=== PATIENT | female | born 1985 | race American Indian/Alaskan Native ===

== ENCOUNTER 2017-03-05 05:22 | Observation (INO) | payer OTHER ==
[2017-03-05 05:40] VITALS: RESP 20
[2017-03-05] MEDS ORDERED: Sodium Chloride 0.9% 1,000 ML IV ONE ×2 (05:46→07:26)
--- NOTE | 2017-03-05 05:49 | C.PDOC ---
History Of Present Illness 31 year old female presents to ED complaining of sore throat, malaise, vomiting and diarrhea since yesterday. She reports she lost her voice and feels pain with swallowing. This morning she reports feeling weak and lightheaded. Denies any chest pain cough, abdominal pain or fever. Time Seen by Provider: 03/05/17 05:42 Chief Complaint (Nursing): GI Problem History Per: Patient History/Exam Limitations: no limitations Onset/Duration Of Symptoms: Days Current Symptoms Are (Timing): Still Present Recent travel outside of the [place]: No Past Medical History Reviewed: Historical Data, Nursing Documentation, Vital Signs Vital Signs: Last Vital Signs Temp 97.9 F 03/05/17 05:33 Pulse 123 H 03/05/17 05:33 Resp 20 03/05/17 05:33 BP 146/95 H 03/05/17 05:33 Pulse Ox 100 03/05/17 06:51 - Medical History PMH: Gastritis, HTN (noncompliant with meds) Surgical History: No Surg Hx Family History: States: Unknown Family Hx - Social History Hx Tobacco Use: No Hx Alcohol Use: No Hx Substance Use: No - Immunization History Hx Tetanus Toxoid Vaccination: Yes Hx Influenza Vaccination: Yes Hx Pneumococcal Vaccination: No Review Of Systems Constitutional: Positive for: Malaise. Negative for: Fever ENT: Positive for: Throat Pain. Negative for: Ear Pain, Nose Congestion Cardiovascular: Negative for: Chest Pain Respiratory: Negative for: Cough Gastrointestinal: Positive for: Vomiting, Diarrhea. Negative for: Abdominal Pain, Constipation Genitourinary: Negative for: Dysuria Skin: Negative for: Rash Neurological: Negative for: Weakness, Numbness, Headache, Dizziness Physical Exam - Physical Exam Appears: Non-toxic, Other (Soft voice) Skin: Normal Color, Warm, Dry Head: Atraumatic, Normacephalic Eye(s): bilateral: Normal Inspection, EOMI Ear(s): Bilateral: Normal Nose: Normal Oral Mucosa: Moist Throat: Erythema (Mild), No Exudate, No Drooling, No Mass Neck: Normal, Supple Chest: Symmetrical Cardiovascular: Rhythm Regular Respiratory: Normal Breath Sounds, No Rales, No Rhonchi, No Wheezing Gastrointestinal/Abdominal: Soft, No Tenderness Extremity: Bilateral: Atraumatic, Normal Color And Temperature, Normal ROM Neurological/Psych: Oriented x3, Normal Speech, Other (No focal deficits) Gait: Steady ED Course And Treatment - Laboratory Results Result Diagrams: 03/05/17 06:00 03/05/17 06:00 Lab Interpretation: No Acute Changes O2 Sat by Pulse Oximetry: 100 Pulse Ox Interpretation: Normal Medical Decision Making Medical Decision Making: Impression: sore throat, vomiting, diarrhea Plan: * Labs * UA * IV NS Progress: Labs reviewed by me, low potassium and dehydration. Patient received 1L IV bolus of NS and ordered KCL PO. Patient is still feeling nauseous. Reglan IV ordered. Patient signed out to NARCISO Parnell pending urine, re-eval and dispo Disposition Counseled Patient/Family Regarding: Studies Performed, Diagnosis, Need For Followup, Rx Given - Disposition Referrals: Ramírez Guevara MD [Staff Provider] - Disposition Time: 07:00 Condition: STABLE Additional Instructions: Drink fluids to prevent dehydration. Take Zofran as prescribed for nausea and vomiting. Try low-fat diet with increase in fluids such as sport drink, or gelatin. Rest your voice. Follow up with your doctor for further care and evaluation. Return to hospital for any worsening symptoms including fever, persistent vomiting, abdominal pain or other concern Prescriptions: Ondansetron ODT [Zofran ODT] 1 odt PO BID PRN #6 odt PRN Reason: Nausea/Vomiting - POA Present On Arrival: None - Clinical Impression Clinical Impression: Laryngitis, Viral syndrome - PA / BI LEAD / Resident Statement MD/DO has reviewed & agrees with the documentation as recorded. - Scribe Statement The provider has reviewed the documentation as recorded by the Scribe German Stevens All medical record entries made by the Dulceibtyler were at my direction and personally dictated by me. I have reviewed the chart and agree that the record accurately reflects my personal performance of the history, physical exam, medical decision making, and the department course for this patient. I have also personally directed, reviewed, and agree with the discharge instructions and disposition.
[2017-03-05] MEDS ORDERED: Sodium Chloride 0.9% 1,000 ML ONE ×2 (05:54→07:36)
[2017-03-05 06:03] LABS: HEMATOCRIT 41.4 % (34.0-47.0); MEAN CELL VOLUME 97.8 fL (81.0-99.0); MEAN CORPUSCULAR HEMOGLOBIN 33.7 pg (27.0-31.0); MEAN CORPUSCULAR HGB CONC 34.4 g/dL (33.0-37.0); MEAN PLATELET VOLUME 8.2 fL (7.2-11.7); RED CELL DISTRIBUTION WIDTH 12.9 % (11.5-14.5); WHITE BLOOD COUNT 6.9 K/uL (4.8-10.8)
[2017-03-05 06:13] LABS: CHLORIDE 96 mmol/L (98-107)
[2017-03-05 06:14] LABS: POTASSIUM 3.4 mmol/L (3.6-5.2); SODIUM 140 mmol/L (132-148)
[2017-03-05 06:16] LABS: ALB/GLOB RATIO 1.2 (1.0-2.1); ALKALINE PHOSPHATASE 79 U/L (38-126); AST/SGOT 258 U/L (14-36); BILIRUBIN,TOTAL 1.7 mg/dL (0.2-1.3); CARBON DIOXIDE 16 mmol/L (22-30); GFR AFRICAN-AMERICAN > 60; TOTAL PROTEIN 8.6 g/dL (6.3-8.3)
[2017-03-05 06:17] LABS: ALT/SGPT 116 U/L (9-52); BLOOD UREA NITROGEN 5 mg/dL (7-17); CALCIUM 9.2 mg/dl (8.6-10.4); GLUCOSE,RANDOM 88 mg/dL (65-105)
[2017-03-05] MEDS ORDERED: Potassium Chloride 20 mEq ER Tab PO STA (06:23)
[2017-03-05] MEDS ORDERED: Potassium Chloride 20 mEq ER Tab PO ONE (06:27)
[2017-03-05 07:16] LABS: RBC URINE 1 /hpf (0-3); URINE BACTERIA RARE (<OCC); URINE BILIRUBIN NEGATIVE (NEGATIVE); URINE BLOOD NEGATIVE (NEGATIVE); URINE COLOR Yellow (YELLOW); URINE GLUCOSE (UA) NORMAL (Normal); URINE KETONE 2+ mg/dL (NEGATIVE); URINE LEUKOCYTE ESTERASE NEG Leu/uL (Negative); URINE PROTEIN 1+ mg/dL (NEGATIVE); URINE UROBILINOGEN NORMAL mg/dL (0.2-1.0); WBC URINE 6 /hpf (0-5)
[2017-03-05 07:56] LABS: AMYLASE 93 U/L (30-110)
--- NOTE | 2017-03-05 09:22 | US ---
Right upper quadrant abdominal ultrasound History: Right upper quadrant abdominal pain. Comparison: None available. Technique: Real-time sonography was performed through the right upper quadrant of the abdomen. Findings: Liver: Enlarged measuring 20.6 centimeters in length. Diffuse increased echogenicity suggestive for fatty infiltration versus hepatic parenchymal disease. Clinical correlation. Gallbladder appears preserved. Normal wall thickness of 2.3 millimeters. Negative sonographic Solomon's sign. Common bile duct measures 5.3 millimeters, within normal limits. Pancreas not well visualized. Visualized aorta and IVC are preserved. Right kidney: 11.3 x 4.7 x 4.8 centimeters. No calculi or hydronephrosis. Impression: Enlarged liver measuring up to 20.6 centimeters in length with diffuse increased echogenicity suggestive for fatty infiltration versus hepatic parenchymal disease. Clinical correlation. Pancreas not well visualized.
[2017-03-05 09:54] LABS: VENOUS BLOOD GAS BASE EXCESS -2.8 mmol/L (0.0-2.0); VENOUS BLOOD GAS PCO2 32 mmHg (40-60); VENOUS BLOOD PH 7.42 (7.32-7.43)
[2017-03-05 10:04] LABS: CHLORIDE 102 mmol/L (98-107); POTASSIUM 3.6 mmol/L (3.6-5.2); SODIUM 140 mmol/L (132-148)
[2017-03-05 10:07] LABS: BLOOD UREA NITROGEN 4 mg/dL (7-17); CARBON DIOXIDE 17 mmol/L (22-30); GFR AFRICAN-AMERICAN > 60; GLUCOSE,RANDOM 89 mg/dL (65-105)
[2017-03-05 10:08] LABS: CALCIUM 7.7 mg/dl (8.6-10.4)
[2017-03-05 10:23] VITALS: BP 133/95; PULSE 128; TEMP 98.5; O2SAT 100
== END 2017-03-05 10:41 | disposition home or self-care (01) ==
LOC: C.ER 05:22 → C.9OBSV 07:00
PROVIDERS: ADMIT Emergency Medicine; ATTEND Emergency Medicine
DX: J04.0 Acute laryngitis (principal); B34.9 Viral infection, unspecified; I10 Essential (primary) hypertension; Z91.14 Patient's other noncompliance with medication regimen; R10.11 Right upper quadrant pain
CPT/HCPCS: 76705; 80048; 80053; 81001; 82150; 82803; 83690; 84703; 85027; 96361; 96374; 96375; 99285; G0378; J1885; J2405; J2765; J7040

== ENCOUNTER 2017-03-13 10:13 | Inpatient (IN) | payer OTHER ==
[2017-03-13] MEDS ORDERED: Sodium Chloride 0.9% 1,000 ML IV ONE ×3 (10:36→11:37)
[2017-03-13 10:51] LABS: BASO % 0.3 % (0.0-2.0); HEMATOCRIT 49.6 % (34.0-47.0); LYMPH # 0.9 K/uL (1.0-4.3); LYMPH % 13.4 % (20.0-40.0); MEAN CELL VOLUME 99.2 fL (81.0-99.0); MEAN CORPUSCULAR HGB CONC 34.3 g/dL (33.0-37.0); MEAN PLATELET VOLUME 8.9 fL (7.2-11.7); MONO # 0.5 K/uL (0.0-0.8); NRBC % 0.2 % (0.0-2.0); RED CELL DISTRIBUTION WIDTH 13.7 % (11.5-14.5); WHITE BLOOD COUNT 6.9 K/uL (4.8-10.8)
[2017-03-13 11:11] LABS: CHLORIDE 94 mmol/L (98-107); POTASSIUM 5.9 mmol/L (3.6-5.2); SODIUM 136 mmol/L (132-148)
[2017-03-13 11:13] LABS: ALB/GLOB RATIO 1.2 (1.0-2.1); ALKALINE PHOSPHATASE 127 U/L (38-126); BILIRUBIN,TOTAL 2.5 mg/dL (0.2-1.3); CARBON DIOXIDE 12 mmol/L (22-30); GFR AFRICAN-AMERICAN > 60; TOTAL PROTEIN 8.6 g/dL (6.3-8.3)
[2017-03-13 11:14] LABS: ALT/SGPT 287 U/L (9-52); BLOOD UREA NITROGEN 10 mg/dL (7-17); CALCIUM 9.1 mg/dl (8.6-10.4); GLUCOSE,RANDOM 128 mg/dL (65-105)
[2017-03-13 11:24] LABS: VENOUS BLOOD GAS BASE EXCESS -6.2 mmol/L (0.0-2.0); VENOUS BLOOD GAS PCO2 36 mmHg (40-60); VENOUS BLOOD PH 7.33 (7.32-7.43)
--- NOTE | 2017-03-13 11:27 | C.PDOC ---
History Of Present Illness 31 y/o female presents to ED with complaints of continuous abdominal pain and vomiting. Patient was seen at ED "few days ago" for same symptoms and given antibiotics. Patient states she had a strep throat and abdominal ultrasound. Patient denies fever, chills, diarrhea or any other complaints at this time. Time Seen by Provider: 03/13/17 10:22 Chief Complaint (Nursing): GI Problem History Per: Patient History/Exam Limitations: no limitations Onset/Duration Of Symptoms: Days Current Symptoms Are (Timing): Still Present Location Of Pain/Discomfort: RUQ, Epigastric, LUQ Quality Of Discomfort: Aching Recent travel outside of the [place]: No Abnormal Vaginal Bleeding: No Past Medical History Reviewed: Historical Data, Nursing Documentation, Vital Signs Vital Signs: Last Vital Signs Temp 98.4 F 03/13/17 13:30 Pulse 129 H 03/13/17 14:00 Resp 29 H 03/13/17 14:00 BP 126/80 03/13/17 13:30 Pulse Ox 97 03/13/17 14:00 - Medical History PMH: Gastritis, HTN (noncompliant with meds) Surgical History: No Surg Hx Family History: States: No Known Family Hx - Social History Hx Tobacco Use: No Hx Alcohol Use: No Hx Substance Use: No - Immunization History Hx Tetanus Toxoid Vaccination: Yes Hx Influenza Vaccination: Yes Hx Pneumococcal Vaccination: No Review Of Systems Constitutional: Negative for: Fever, Chills Gastrointestinal: Positive for: Vomiting, Abdominal Pain. Negative for: Nausea , Diarrhea Genitourinary: Negative for: Dysuria Musculoskeletal: Negative for: Back Pain Physical Exam - Physical Exam Appears: Non-toxic, Other (Actively vomiting) Skin: Normal Color, Warm, Dry Head: Normacephalic Oral Mucosa: Moist Neck: Normal ROM, Supple Chest: Symmetrical Cardiovascular: Rhythm Regular, Other (Sinus tachcyardic) Respiratory: Normal Breath Sounds, No Rales, No Rhonchi, No Wheezing Gastrointestinal/Abdominal: Soft, Tenderness (diffuse), No Guarding, No Rebound Back: No CVA Tenderness Neurological/Psych: Oriented x3 Gait: Unable To Assess ED Course And Treatment - Laboratory Results Result Diagrams: 03/13/17 10:44 03/13/17 10:44 Lab Interpretation: Abnormal Interpretation Of Abnormal: lipase > 6000 Urine POC: Negative ECG: Interpreted By Me, Viewed By Me ECG Rhythm: Sinus Tachycardia Rate From EC (bpm) O2 Sat by Pulse Oximetry: 98 (RA) Pulse Ox Interpretation: Normal Progress Note: Patient treated with NSS x 3 liters. Case discussed with ICU attending and agrees with ICU admission. Treated with morphine 4 mg IV Reassessment Condition: Improved - Physician Consult Information Physician Contacted: Nina Coates Outcome Of Conversation: admit to ICU Critical Care Time - Critical Care Note Total Time (in mins): 35 Documented critical care: time excludes all time spent performing seperately billable procedures. Medical Decision Making Medical Decision Making: Plan: Non-contrast CT scan abdomen Case discussed and patient evaluated by ICU attending and agrees to admit Case discussed and patient evaluated by Dr Coates Disposition Discussed With Dr.: Nina Coates Doctor Will See Patient In The: Hospital - Disposition Disposition: HOSPITALIZED Disposition Time: 13:00 Condition: STABLE - POA Present On Arrival: None - Clinical Impression Clinical Impression: Vomiting, Pancreatitis - PA / DINKEY OPERATOR SLATE / Resident Statement MD/DO has reviewed & agrees with the documentation as recorded. - Scribe Statement The provider has reviewed the documentation as recorded by the Russell Garvey All medical record entries made by the Dulceibtyler were at my direction and personally dictated by me. I have reviewed the chart and agree that the record accurately reflects my personal performance of the history, physical exam, medical decision making, and the department course for this patient. I have also personally directed, reviewed, and agree with the discharge instructions and disposition. Decision To Admit - Pt Status Changed To: Hospital Disposition Of: Inpatient - Admit Certification Admit to Inpatient:: After my assessment, the patient will require hospitalization for at least two midnights. This is because of the severity of symptoms shown, intensity of services needed, and/or the medical risk in this patient being treated as an outpatient. - InPatient: Physician Admission Certification:: Acute Pancreatitis - . Bed Request Type: ICU Admitting Physician: Nina Coates Patient Diagnosis: Vomiting, Pancreatitis
[2017-03-13 11:28] LABS: AST/SGOT 1051 U/L (14-36)
[2017-03-13] MEDS ORDERED: Morphine 4 MG/ML VIAL ONE (11:44)
[2017-03-13 12:08] LABS: ALCOHOL SERUM 209 mg/dl (0-10)
[2017-03-13] MEDS ORDERED: Lactated Ringer's 1,000 ML IV SCH (12:30)
[2017-03-13 12:41] LABS: ABG ALLEN TEST POS; DRAW SITE RRA
--- NOTE | 2017-03-13 13:43 | CT ---
CT chest, abdomen, and pelvis without IV contrast Indication: Pain Technique: Contiguous axial images of the chest, abdomen, and pelvis without oral or IV contrast. Coronal and Sagittal reformats generated and reviewed. This CT exam was performed using 1 or more of the falling dose reduction techniques: Automated exposure control, adjustment of the MAA and/or kV according to patient size, and/or use of iterative reconstruction technique. Radiation dose: Total exam DLP = 755.80 MGy-cm. Comparison: Limited abdominal ultrasound performed 03/05/17 and 03/16/15 Findings: Visualized portions of the inferior thyroid gland appear unremarkable. The mediastinal and hilar vascular structures appear within normal limits. The heart appears within normal limits of size. There is no focal consolidation, significant pleural effusion, or definite pneumothorax evident. No suspicious pulmonary nodules measuring greater than 5 mm. Hepatomegaly. Severe diffuse hypoattenuation of the liver compatible with hepatic steatosis. 2.0 x 4.2 cm more focal hypodensity within the inferior right hepatic lobe near the portal confluence, possibly more focal fatty infiltration. Extensive peripancreatic inflammatory stranding and fluid which tracks inferiorly as well as pancreatic edema. Constellation of findings consistent with acute pancreatitis. Contrast within the gallbladder presumably due to vicarious excretion. The kidneys enhance symmetrically. No hydronephrosis or obstructing calculi evident. The adrenal glands appear unremarkable. Diminutive spleen appears otherwise unremarkable. The stomach is nondistended. Lack of oral contrast limits evaluation for bowel pathology. The bowel loops appear within normal limits of caliber without evidence of intestinal obstruction. There is no definite free air. The appendix appears within normal limits of caliber. No secondary signs of acute appendicitis. Uterus is present. The urinary bladder appears unremarkable. Small to moderate pelvic free fluid. Visualized osseous structures appear unremarkable. Impression: Extensive peripancreatic inflammatory stranding and fluid which tracks inferiorly as well as pancreatic edema. Constellation of findings consistent with acute pancreatitis. Correlate clinically including amylase and lipase. Hepatomegaly. Severe diffuse hypoattenuation of the liver compatible with hepatic steatosis. 2.0 x 4.2 cm more focal hypodensity within the inferior right hepatic lobe near the portal confluence, possibly more focal fatty infiltration. Contrast within the gallbladder presumably due to vicarious excretion. Small to moderate pelvic free fluid.
--- NOTE | 2017-03-13 13:49 | CP.PCM.HP ---
<Dalton Thomas E - Last Filed: 03/13/17 18:03> History of Present Illness - History of Present Illness History of Present Illness: CC: Abdominal Pain HPI: Patient is a 31 year old female past medical history of hypertension who presents tot he ED with complaints of abdominal pain, vomiting and watery diarrhea that started 2-3 days ago. Patient describes her abdominal pain as a 7/ 10 continuos cramping pain that is localized to the upper abdomen with an epigastric origin. Patient reports that her abdominal pain radiates to the middle of her back. Patient reports that she had a lot of wine glasses and 3 shots of vodka at a [facility] 1-2 days ago and noted increased alcohol intake at the [facility]. Furthermore, patient admits to daily alcohol use of ( 2-3 beers, 3-5 shots and wine). Patient admits to associated symptoms of SOB, hot flashes, dizziness, 1-2 episodes of watery diarrhea daily for the past 2-3 days, decrease PO intake for 4 days, abdominal distentions, unusual bloating. Patient denies fever, chills, chest pain, hematemesis, hematochezia. Patient was recently in the ER (03/05/17) for symptoms of URI and abdominal pain. Patient had an abdominal US, which showed enlarged liver measuring up to 20.6cm in length with diffuse increased echogenicity suggestive for fatty infiltration. Patient was also discharge with Augmentin 875-125mg for URI symptoms. PMHx: HTN PSHx: Denies FHx: Denies Medication: HTN medication ( Patient does not recall) Allergies: NKDA Social Hx: Lives alone. Admits to daily consumption of alcohol (2-3 beers, 3-5 shots and wine), and denies former or current use of tobacco and illicit drugs Present on Admission - Present on Admission Any Indicators Present on Admission: No Review of Systems - Constitutional Constitutional: Weakness. absent: Chills, Fever, Headache - EENT Eyes: absent: Change in Vision Ears: Dizziness - Cardiovascular Cardiovascular: Diaphoresis, Dyspnea, Lightheadedness, Palpitations. absent: Chest Pain - Respiratory Respiratory: Dyspnea, Dyspnea on Exertion, Pain on Inspiration - Gastrointestinal Gastrointestinal: Abdominal Pain, Cramping, Diarrhea, Loose Stools, Nausea, Vomiting - Neurological Neurological: Dizziness, Weakness. absent: Headaches, Syncope, Tingling - Endocrine Endocrine: Fatigue, Palpitations Past Patient History - Infectious Disease Hx of Infectious Diseases: None - Past Social History Smoking Status: Never Smoked - CARDIAC Hx Hypertension: Yes (noncompliant with meds) - PULMONARY Hx Respiratory Disorders: No - NEUROLOGICAL Hx Neurological Disorder: No - HEENT Hx HEENT Problems: No - RENAL Hx Chronic Kidney Disease: No - ENDOCRINE/METABOLIC Hx Endocrine Disorders: No - HEMATOLOGICAL/ONCOLOGICAL Hx Blood Disorders: No - INTEGUMENTARY Hx Dermatological Problems: No - MUSCULOSKELETAL/RHEUMATOLOGICAL Hx Musculoskeletal Disorders: No - GASTROINTESTINAL Hx Gastritis: Yes - GENITOURINARY/GYNECOLOGICAL Hx Genitourinary Disorders: No - PSYCHIATRIC Hx Substance Use: No - SURGICAL HISTORY Hx Surgeries: No - ANESTHESIA Hx Anesthesia: No Meds Allergies/Adverse Reactions: Allergies Allergy/AdvReac Type Severity Reaction Status Date / Time No Known Allergies Allergy Verified 03/13/17 10:23 Physical Exam - Head Exam Head Exam: ATRAUMATIC, NORMAL INSPECTION - Eye Exam Eye Exam: EOMI - ENT Exam ENT Exam: Mucous Membranes Dry - Respiratory Exam Respiratory Exam: Clear to Auscultation Bilateral, NORMAL BREATHING PATTERN - Cardiovascular Exam Cardiovascular Exam: Tachycardia, REGULAR RHYTHM, +S1, +S2 - GI/Abdominal Exam GI & Abdominal Exam: Distended, Guarding, Normal Bowel Sounds, Tenderness - Extremities Exam Extremities exam: Positive for: normal inspection. Negative for: calf tenderness, pedal edema, tenderness - Back Exam Back exam: tenderness - Neurological Exam Neurological exam: Alert, Oriented x3 - Skin Skin Exam: Normal Color Results - Vital Signs Recent Vital Signs: Last Vital Signs Temp 97.8 F 03/13/17 12:53 Pulse 129 H 03/13/17 13:04 Resp 18 03/13/17 13:04 BP 120/80 03/13/17 13:04 Pulse Ox 98 03/13/17 13:33 - Labs Result Diagrams: 03/13/17 10:44 03/13/17 15:33 Labs: Laboratory Results - last 24 hr 03/13/17 03/13/17 03/13/17 10:25 10:44 10:44 WBC 6.9 RBC 5.00 Hgb 17.0 H D Hct 49.6 H MCV 99.2 H MCH 34.0 H MCHC 34.3 RDW 13.7 Plt Count 224 MPV 8.9 Neut % (Auto) 78.3 H Lymph % (Auto) 13.4 L [place] % (Auto) 8.0 Eos % (Auto) 0.0 Baso % (Auto) 0.3 Neut # 5.4 Lymph # 0.9 L [place] # 0.5 Eos # 0.0 Baso # 0.0 Puncture Site pCO2 pO2 HCO3 ABG pH ABG Total CO2 ABG O2 Saturation ABG Base Excess [place] Test ABG Potassium VBG pH VBG pCO2 VBG HCO3 VBG Total CO2 VBG O2 Sat (Calc) VBG Base Excess VBG Potassium A-a O2 Difference Respiratory Index Glucose Lactate FiO2 Crit Value Called To Crit Value Called By Crit Value Read Back Blood Gas Notified Time Sodium 136 Potassium 5.9 H Chloride 94 L Carbon Dioxide 12 L Anion Gap 36 H BUN 10 Creatinine 0.7 Est GFR ( Amer) > 60 Est GFR (Non-Af Amer) > 60 POC Glucose (mg/dL) 131 H Random Glucose 128 H Calcium 9.1 Total Bilirubin 2.5 H AST 1051 H ALT 287 H D Alkaline Phosphatase 127 H D Ammonia Lactate Dehydrogenase Total Protein 8.6 H Albumin 4.6 Globulin 4.0 H Albumin/Globulin Ratio 1.2 Lipase 6496 H Beta HCG, Quant Arterial Blood Potassium Venous Blood Potassium Alcohol, Quantitative 209 H 03/13/17 03/13/17 03/13/17 10:48 10:50 12:35 WBC RBC Hgb Hct MCV MCH MCHC RDW Plt Count MPV Neut % (Auto) Lymph % (Auto) [place] % (Auto) Eos % (Auto) Baso % (Auto) Neut # Lymph # [place] # Eos # Baso # Puncture Site Rra pCO2 25 L pO2 35 114 H HCO3 16.4 L ABG pH 7.33 L ABG Total CO2 14.0 L ABG O2 Saturation 99.2 H ABG Base Excess -10.9 L [place] Test Pos ABG Potassium 3.2 L VBG pH 7.33 VBG pCO2 36 L VBG HCO3 19.1 VBG Total CO2 20.1 L VBG O2 Sat (Calc) 60.1 VBG Base Excess -6.2 L VBG Potassium 3.2 L A-a O2 Difference 4.0 Respiratory Index 0 Glucose 146 H 112 H Lactate 9.5 H* 6.5 H* FiO2 21.0 Crit Value Called To Jd coates Crit Value Called By Melvin siddiqui [employer] Natelmo sanidad Crit Value Read Back Y Y Blood Gas Notified Time 1123 1240 Sodium 139.0 140.0 Potassium Chloride 99.0 109.0 H Carbon Dioxide Anion Gap BUN Creatinine Est GFR ( Amer) Est GFR (Non-Af Amer) POC Glucose (mg/dL) Random Glucose Calcium Total Bilirubin AST ALT Alkaline Phosphatase Ammonia Lactate Dehydrogenase 1749 H Total Protein Albumin Globulin Albumin/Globulin Ratio Lipase Beta HCG, Quant < 2.39 Arterial Blood Potassium 3.2 L Venous Blood Potassium 3.2 L Alcohol, Quantitative 03/13/17 12:38 WBC RBC Hgb Hct MCV MCH MCHC RDW Plt Count MPV Neut % (Auto) Lymph % (Auto) [place] % (Auto) Eos % (Auto) Baso % (Auto) Neut # Lymph # [place] # Eos # Baso # Puncture Site pCO2 pO2 HCO3 ABG pH ABG Total CO2 ABG O2 Saturation ABG Base Excess [place] Test ABG Potassium VBG pH VBG pCO2 VBG HCO3 VBG Total CO2 VBG O2 Sat (Calc) VBG Base Excess VBG Potassium A-a O2 Difference Respiratory Index Glucose Lactate FiO2 Crit Value Called To Crit Value Called By Crit Value Read Back Blood Gas Notified Time Sodium Potassium Chloride Carbon Dioxide Anion Gap BUN Creatinine Est GFR ( Amer) Est GFR (Non-Af Amer) POC Glucose (mg/dL) Random Glucose Calcium Total Bilirubin AST ALT Alkaline Phosphatase Ammonia < 9 L Lactate Dehydrogenase Total Protein Albumin Globulin Albumin/Globulin Ratio Lipase Beta HCG, Quant Arterial Blood Potassium Venous Blood Potassium Alcohol, Quantitative Assessment & Plan - Assessment and Plan (Free Text) Assessment: Patient is a 31 year old female past medical history of hypertension who presents tot he ED with complaints of abdominal pain, vomiting and watery diarrhea that started 2-3 days ago, with lactate level of 9.5, 6.5 and lipase of 6496. Patient was admitted to the ICU with consideration of acute pancreatitis and transaminitis. Plan: Neuro: Alert, awake and oriented Cardio: No acute issues Pulm: No acute issues GI: Acute Pancreatitis and transaminitis GI consult, Dr. Okeefe---> help appreciated Imaging: Abdominal US (03/05/17): Enlarged liver measuring up to 20.6cm in length with diffuse increased echogenicity suggestive for fatty infiltration Chest CT/Abdomen/Pelvis ( 03/13/17): Extensive peripancreatic inflammatory stranding and fluid which tracks inferiorly as well as pancreatic edema. Constellation of findings consistent with acute pancreatitis. Correlate clinically including amylase and lipase. * Hepatomegaly. Severe diffuse hypoattenuation of the liver compatible with hepatic steatosis. 2.0 x 4.2 cm more focal hypodensity within the inferior right hepatic lobe near the portal confluence, possibly more focal fatty infiltration. * Contrast within the gallbladder presumably due to vicarious excretion. * Small to moderate pelvic free fluid. Labs: Lactate: 9.5, 6.5 Lipase: 6496 AST/ALT: 1051/287 Lactate DH:[id number] T, LDL: 252, HDL: 88 Alcohol level: 209 Hepatitis panel: Negative F/u stool culture, ova and parasite, stool occult Medication/Management: * NPO * Dilaudid 1mg IV Q4H PRN for pain control * LR @ 250mls/hr Endo: Hypertriglyceridemia Endocrinology, Dr. Sung---> Help appreciated Medication/Management: * Insulin drip at 3mls/hr * Accuchecks Q1 Psych: Alcohol disorder * Educated on alcohol cessation * Alcohol withdrawal protocol ID: No acute issues Prophylaxis: DVT: SCDs GI: Pepcid 20mg IVP Q12H <Nina Coates V - Last Filed: 03/15/17 00:14> Results - Vital Signs Recent Vital Signs: Last Vital Signs Temp 98.4 F 03/13/17 13:30 Pulse 129 H 03/13/17 14:00 Resp 29 H 03/13/17 14:00 BP 126/80 03/13/17 13:30 Pulse Ox 97 03/13/17 14:00 - Labs Result Diagrams: 03/14/17 15:34 03/14/17 15:34 Labs: Laboratory Results - last 24 hr 03/13/17 03/13/17 03/13/17 10:25 10:44 10:44 WBC 6.9 RBC 5.00 Hgb 17.0 H D Hct 49.6 H MCV 99.2 H MCH 34.0 H MCHC 34.3 RDW 13.7 Plt Count 224 MPV 8.9 Neut % (Auto) 78.3 H Lymph % (Auto) 13.4 L [place] % (Auto) 8.0 Eos % (Auto) 0.0 Baso % (Auto) 0.3 Neut # 5.4 Lymph # 0.9 L [place] # 0.5 Eos # 0.0 Baso # 0.0 PT INR Puncture Site pCO2 pO2 HCO3 ABG pH ABG Total CO2 ABG O2 Saturation ABG Base Excess [place] Test ABG Potassium VBG pH VBG pCO2 VBG HCO3 VBG Total CO2 VBG O2 Sat (Calc) VBG Base Excess VBG Potassium A-a O2 Difference Respiratory Index Glucose Lactate FiO2 Crit Value Called To Crit Value Called By Crit Value Read Back Blood Gas Notified Time Sodium 136 Potassium 5.9 H Chloride 94 L Carbon Dioxide 12 L Anion Gap 36 H BUN 10 Creatinine 0.7 Est GFR ( Amer) > 60 Est GFR (Non-Af Amer) > 60 POC Glucose (mg/dL) 131 H Random Glucose 128 H Calcium 9.1 Total Bilirubin 2.5 H Direct Bilirubin AST 1051 H ALT 287 H D Alkaline Phosphatase 127 H D Ammonia Lactate Dehydrogenase Total Protein 8.6 H Albumin 4.6 Globulin 4.0 H Albumin/Globulin Ratio 1.2 Cholesterol LDL Cholesterol Direct HDL Cholesterol Lipase 6496 H Beta HCG, Quant Arterial Blood Potassium Venous Blood Potassium Acetaminophen Alcohol, Quantitative 209 H 03/13/17 03/13/17 03/13/17 10:48 10:50 12:35 WBC RBC Hgb Hct MCV MCH MCHC RDW Plt Count MPV Neut % (Auto) Lymph % (Auto) [place] % (Auto) Eos % (Auto) Baso % (Auto) Neut # Lymph # [place] # Eos # Baso # PT INR Puncture Site Rra pCO2 25 L pO2 35 114 H HCO3 16.4 L ABG pH 7.33 L ABG Total CO2 14.0 L ABG O2 Saturation 99.2 H ABG Base Excess -10.9 L [place] Test Pos ABG Potassium 3.2 L VBG pH 7.33 VBG pCO2 36 L VBG HCO3 19.1 VBG Total CO2 20.1 L VBG O2 Sat (Calc) 60.1 VBG Base Excess -6.2 L VBG Potassium 3.2 L A-a O2 Difference 4.0 Respiratory Index 0 Glucose 146 H 112 H Lactate 9.5 H* 6.5 H* FiO2 21.0 Crit Value Called To Jd coates Crit Value Called By Melvin siddiqui [employer] Antelmo sanidad Crit Value Read Back Y Y Blood Gas Notified Time 1123 1240 Sodium 139.0 140.0 Potassium Chloride 99.0 109.0 H Carbon Dioxide Anion Gap BUN Creatinine Est GFR ( Amer) Est GFR (Non-Af Amer) POC Glucose (mg/dL) Random Glucose Calcium Total Bilirubin Direct Bilirubin AST ALT Alkaline Phosphatase Ammonia Lactate Dehydrogenase 1749 H Total Protein Albumin Globulin Albumin/Globulin Ratio Cholesterol LDL Cholesterol Direct HDL Cholesterol Lipase Beta HCG, Quant < 2.39 Arterial Blood Potassium 3.2 L Venous Blood Potassium 3.2 L Acetaminophen Alcohol, Quantitative 03/13/17 03/13/17 03/13/17 12:38 14:06 14:06 WBC RBC Hgb Hct MCV MCH MCHC RDW Plt Count MPV Neut % (Auto) Lymph % (Auto) [place] % (Auto) Eos % (Auto) Baso % (Auto) Neut # Lymph # [place] # Eos # Baso # PT 12.7 H INR 1.1 Puncture Site pCO2 pO2 HCO3 ABG pH ABG Total CO2 ABG O2 Saturation ABG Base Excess [place] Test ABG Potassium VBG pH VBG pCO2 VBG HCO3 VBG Total CO2 VBG O2 Sat (Calc) VBG Base Excess VBG Potassium A-a O2 Difference Respiratory Index Glucose Lactate FiO2 Crit Value Called To Crit Value Called By Crit Value Read Back Blood Gas Notified Time Sodium Potassium Chloride Carbon Dioxide Anion Gap BUN Creatinine Est GFR ( Amer) Est GFR (Non-Af Amer) POC Glucose (mg/dL) Random Glucose Calcium Total Bilirubin Direct Bilirubin 1.1 H AST ALT Alkaline Phosphatase Ammonia < 9 L Lactate Dehydrogenase Total Protein Albumin Globulin Albumin/Globulin Ratio Cholesterol 252 H LDL Cholesterol Direct 96 HDL Cholesterol 88 H Lipase Beta HCG, Quant Arterial Blood Potassium Venous Blood Potassium Acetaminophen Alcohol, Quantitative 03/13/17 14:06 WBC RBC Hgb Hct MCV MCH MCHC RDW Plt Count MPV Neut % (Auto) Lymph % (Auto) [place] % (Auto) Eos % (Auto) Baso % (Auto) Neut # Lymph # [place] # Eos # Baso # PT INR Puncture Site pCO2 pO2 HCO3 ABG pH ABG Total CO2 ABG O2 Saturation ABG Base Excess [place] Test ABG Potassium VBG pH VBG pCO2 VBG HCO3 VBG Total CO2 VBG O2 Sat (Calc) VBG Base Excess VBG Potassium A-a O2 Difference Respiratory Index Glucose Lactate FiO2 Crit Value Called To Crit Value Called By Crit Value Read Back Blood Gas Notified Time Sodium Potassium Chloride Carbon Dioxide Anion Gap BUN Creatinine Est GFR ( Amer) Est GFR (Non-Af Amer) POC Glucose (mg/dL) Random Glucose Calcium Total Bilirubin Direct Bilirubin AST ALT Alkaline Phosphatase Ammonia Lactate Dehydrogenase Total Protein Albumin Globulin Albumin/Globulin Ratio Cholesterol LDL Cholesterol Direct HDL Cholesterol Lipase Beta HCG, Quant Arterial Blood Potassium Venous Blood Potassium Acetaminophen < 10.0 L Alcohol, Quantitative Attending/Attestation - Attestation I have personally seen and examined this patient.: Yes I have fully participated in the care of the patient.: Yes I have reviewed all pertinent clinical information: Yes Notes (Text): Patient seen, examined, and case discussed with ER-SENIOR TECHNICAL BUSINESS ANALYSTRiri. ICU evaluation, discussed with ICU and ICU resident, patient admitted to the ICU for pancreatitis. GI consult for acute pancreatitis Alphonso's criteria: 2 Per discussion with patient, Patient reports for the past 3 days, she has been having abdominal pain, diffuse, nonlocalized, non-billious vomitting and associated watery stool. Patient reports 3 days ago, she drank 1 large wine bottle and 3 shots of "white liquor" and patient reports she drank like this only 3 times but did not want to expand on further questioning. Patient reports she was being treated for URI about 4-5 days ago, took 2 pills antibiotic but cannot remember. Patient allows for us to share medication information with her boyfriend and her mother. Assessment/Plan 1) Acute Pancreatitis Transaminitis Lactic acidosis/ Metabolic Acidosis * Patient seen, examined and case discussed with ICU, accepted to ICU; management per ICU * NPO * Patient given 3 fluid boluses in the ED< patient started on LR 250cc/hr * Lactate: 9.5-->6.5 * Lipase: 6496; AST/ALT: 1051/287; Lactate DH:1749 * T, LDL: 252, HDL: 88 * Alphonso's Criteria: 2 (AST>250, LDH>350) * Elevated alcohol on admission * Hepatitis: negative * HIV ordered * Tylenol level: Low * Abdominal US (03/05/17): Enlarged liver measuring up to 20.6cm in length with diffuse increased echogenicity suggestive for fatty infiltration * Chest CT/Abdomen/Pelvis ( 03/13/17): Extensive peripancreatic inflammatory stranding and fluid which tracks inferiorly as well as pancreatic edema. Constellation of findings consistent with acute pancreatitis. Correlate clinically including amylase and lipase. Hepatomegaly. Severe diffuse hypoattenuation of the liver compatible with hepatic steatosis. 2.0 x 4.2 cm more focal hypodensity within the inferior right hepatic lobe near the portal confluence, possibly more focal fatty infiltration. Contrast within the gallbladder presumably due to vicarious excretion. Small to moderate pelvic free fluid. * UDS ordered 2) Hypertrigylceridemia * T, LDL: 252, HDL: 88 * Patient currently not on any medication as outptient * Endocrinology Dr. Sung-->help apppreciated * Patient started on Insulin drip and accuchecks Q1 3) Hypertension * off BP medications at this time * Given fluid boluses in the ED, started on LR 250cc/hr 4) Prior history of URI * CT Chest obtained 5) Prophylaxis: * DVT: SCDs * GI: Pepcid 20mg IVP Q12H
[2017-03-13 14:15] LABS: INR 1.1
[2017-03-13 14:27] LABS: BILIRUBIN,DIRECT 1.1 mg/dL (0.0-0.4)
[2017-03-13 15:17] LABS: IRON 201 ug/dL (37-170)
[2017-03-13] MEDS: Lactated Ringer's 1,000 ML IV SCH ×5 (16:01→22:20)
[2017-03-13 16:49] LABS: CHLORIDE 103 mmol/L (98-107); POTASSIUM 3.4 mmol/L (3.6-5.2); SODIUM 138 mmol/L (132-148)
[2017-03-13 16:52] LABS: GFR AFRICAN-AMERICAN > 60
[2017-03-13 16:53] LABS: BLOOD UREA NITROGEN 7 mg/dL (7-17); GLUCOSE,RANDOM 107 mg/dL (65-105)
[2017-03-13 16:57] LABS: IMMUNOGLOBULIN G 893.6 mg/dL (700.0-1600.0)
[2017-03-13 16:58] LABS: CARBON DIOXIDE 10 mmol/L (22-30); IMMUNOGLOBULIN A 202.2 mg/dL (70.0-400.0); IMMUNOGLOBULIN M 155.3 mg/dL (40.0-230.0)
--- NOTE | 2017-03-13 17:13 | CP.PCM.CON ---
<Krysten Munguia - Last Filed: 03/13/17 18:07> History of Present Illness - History of Present Illness History of Present Illness: Gastroenterology Fellow/PGY5 Consult Note 31 year old female with history of recent URI presenting with abdominal pain. Patient notes acute onset of epigastric pain radiating to back today after drink a large amount of alcohol yesterday at a [employer]. Admits to daily alcohol use of 2 beers and 5 shots mixed with wine daily. Notes increased intake during parties. Associates hot flashes, abdominal distension, bloating, heartburn, acid reflux, shortness of breath, nausea, over five episodes of bilious vomiting , and three episodes of diarrhea. Denies fever, chills, sweats, hematemesis, constipation, melena, hematochezia, confusion, extremity swelling, pruritis, or confusion. Recent ER visit for shortness of breath and sore throat with prescription for Augmentin provided for a URI. Denies similar symptoms in the past. No prior EGD or colonoscopy. Family- denies liver disease, colon cancer Social- 2 beers and 5 shots mixed with wine daily x 2 years, denies tobacco or illicit drug use Surgery- none Review of Systems - Review of Systems Review of Systems: 12-point review of systems negative except for as above Past Patient History - Infectious Disease Hx of Infectious Diseases: None - Past Social History Smoking Status: Never Smoked - CARDIAC Hx Hypertension: Yes (noncompliant with meds) - PULMONARY Hx Respiratory Disorders: No - NEUROLOGICAL Hx Neurological Disorder: No - HEENT Hx HEENT Problems: No - RENAL Hx Chronic Kidney Disease: No - ENDOCRINE/METABOLIC Hx Endocrine Disorders: No - HEMATOLOGICAL/ONCOLOGICAL Hx Blood Disorders: No - INTEGUMENTARY Hx Dermatological Problems: No - MUSCULOSKELETAL/RHEUMATOLOGICAL Hx Falls: No - GASTROINTESTINAL Hx Gastritis: Yes - GENITOURINARY/GYNECOLOGICAL Hx Genitourinary Disorders: No - PSYCHIATRIC Hx Substance Use: No - SURGICAL HISTORY Hx Surgeries: No - ANESTHESIA Hx Anesthesia: No Meds Allergies/Adverse Reactions: Allergies Allergy/AdvReac Type Severity Reaction Status Date / Time No Known Allergies Allergy Verified 03/13/17 10:23 - Medications Medications: Current Medications Famotidine (Pepcid) 20 mg IVP Q12 MONIKA Hydromorphone HCl (Dilaudid) 1 mg IVP Q4H PRN PRN Reason: Pain, severe (8-10) Last Admin: 03/13/17 14:57 Dose: 1 mg Lactated Ringer's (Lactated Ringer's) 1,000 mls @ 250 mls/hr IV .Q4H MONIKA Last Admin: 03/13/17 17:07 Dose: 250 mls/hr Potassium Chloride (Potassium Chloride 10 Meq/100 Ml) 10 meq in 100 mls @ 100 mls/hr IVPB ONCE ONE Stop: 03/13/17 18:01 Physical Exam - Constitutional Appears: Other - Head Exam Head Exam: ATRAUMATIC, NORMOCEPHALIC - Eye Exam Eye Exam: EOMI, PERRL. absent: Scleral icterus Pupil Exam: PERRL. absent: Miosis, Mydriatic - ENT Exam ENT Exam: Mucous Membranes Dry, Normal Exam - Neck Exam Neck exam: Positive for: Full Rom, Normal Inspection - Respiratory Exam Respiratory Exam: Clear to Auscultation Bilateral. absent: Rales, Rhonchi, Wheezes - Cardiovascular Exam Cardiovascular Exam: Tachycardia, +S1, +S2 - GI/Abdominal Exam GI & Abdominal Exam: Distended, Firm, Guarding, Hypoactive Bowel Sounds, Organomegaly, Tenderness Additional comments: diffuse tenderness to palpation - Extremities Exam Extremities exam: Positive for: normal inspection. Negative for: pedal edema - Neurological Exam Neurological exam: Altered Additional comments: alcohol intoxication - Psychiatric Exam Psychiatric exam: Normal Affect, Normal Mood - Skin Skin Exam: Dry, Intact, Normal Color, Warm Results - Vital Signs Recent Vital Signs: Last Vital Signs Temp 98.2 F 03/13/17 16:00 Pulse 126 H 03/13/17 16:10 Resp 18 03/13/17 16:10 BP 139/100 H 03/13/17 15:29 Pulse Ox 96 03/13/17 16:10 - Labs Result Diagrams: 03/13/17 10:44 03/13/17 15:33 Labs: Laboratory Results - last 24 hr 03/13/17 03/13/17 03/13/17 10:25 10:44 10:44 WBC 6.9 RBC 5.00 Hgb 17.0 H D Hct 49.6 H MCV 99.2 H MCH 34.0 H MCHC 34.3 RDW 13.7 Plt Count 224 MPV 8.9 Neut % (Auto) 78.3 H Lymph % (Auto) 13.4 L Miner % (Auto) 8.0 Eos % (Auto) 0.0 Baso % (Auto) 0.3 Neut # 5.4 Lymph # 0.9 L Miner # 0.5 Eos # 0.0 Baso # 0.0 PT INR Puncture Site pCO2 pO2 HCO3 ABG pH ABG Total CO2 ABG O2 Saturation ABG Base Excess [place] Test ABG Potassium VBG pH VBG pCO2 VBG HCO3 VBG Total CO2 VBG O2 Sat (Calc) VBG Base Excess VBG Potassium A-a O2 Difference Respiratory Index Glucose Lactate FiO2 Crit Value Called To Crit Value Called By Crit Value Read Back Blood Gas Notified Time Sodium 136 Potassium 5.9 H Chloride 94 L Carbon Dioxide 12 L Anion Gap 36 H BUN 10 Creatinine 0.7 Est GFR ( Amer) > 60 Est GFR (Non-Af Amer) > 60 POC Glucose (mg/dL) 131 H Random Glucose 128 H Calcium 9.1 Iron TIBC % Saturation Ferritin Total Bilirubin 2.5 H Direct Bilirubin AST 1051 H ALT 287 H D Alkaline Phosphatase 127 H D Ammonia Lactate Dehydrogenase Total Protein 8.6 H Albumin 4.6 Globulin 4.0 H Albumin/Globulin Ratio 1.2 Triglycerides Cholesterol LDL Cholesterol Direct HDL Cholesterol Lipase 6496 H Beta HCG, Quant Arterial Blood Potassium Venous Blood Potassium Urine Opiates Screen Urine Methadone Screen Acetaminophen Ur Barbiturates Screen Ur Phencyclidine Scrn Ur Amphetamines Screen U Benzodiazepines Scrn U Oth Cocaine Metabols U Cannabinoids Screen Alcohol, Quantitative 209 H IgG IgA IgM Hepatitis A IgM Ab Hep Bs Antigen Hep B Core IgM Ab Hepatitis C Antibody HIV 1&2 Antibody Screen 03/13/17 03/13/17 03/13/17 10:48 10:50 12:35 WBC RBC Hgb Hct MCV MCH MCHC RDW Plt Count MPV Neut % (Auto) Lymph % (Auto) Miner % (Auto) Eos % (Auto) Baso % (Auto) Neut # Lymph # Miner # Eos # Baso # PT INR Puncture Site Rra pCO2 25 L pO2 35 114 H HCO3 16.4 L ABG pH 7.33 L ABG Total CO2 14.0 L ABG O2 Saturation 99.2 H ABG Base Excess -10.9 L [place] Test Pos ABG Potassium 3.2 L VBG pH 7.33 VBG pCO2 36 L VBG HCO3 19.1 VBG Total CO2 20.1 L VBG O2 Sat (Calc) 60.1 VBG Base Excess -6.2 L VBG Potassium 3.2 L A-a O2 Difference 4.0 Respiratory Index 0 Glucose 146 H 112 H Lactate 9.5 H* 6.5 H* FiO2 21.0 Crit Value Called To Jd verde Crit Value Called By Melvin siddiqui inside sales engineer Antelmo sanidad Crit Value Read Back Y Y Blood Gas Notified Time 1123 1240 Sodium 139.0 140.0 Potassium Chloride 99.0 109.0 H Carbon Dioxide Anion Gap BUN Creatinine Est GFR ( Amer) Est GFR (Non-Af Amer) POC Glucose (mg/dL) Random Glucose Calcium Iron TIBC % Saturation Ferritin Total Bilirubin Direct Bilirubin AST ALT Alkaline Phosphatase Ammonia Lactate Dehydrogenase 1749 H Total Protein Albumin Globulin Albumin/Globulin Ratio Triglycerides Cholesterol LDL Cholesterol Direct HDL Cholesterol Lipase Beta HCG, Quant < 2.39 Arterial Blood Potassium 3.2 L Venous Blood Potassium 3.2 L Urine Opiates Screen Urine Methadone Screen Acetaminophen Ur Barbiturates Screen Ur Phencyclidine Scrn Ur Amphetamines Screen U Benzodiazepines Scrn U Oth Cocaine Metabols U Cannabinoids Screen Alcohol, Quantitative IgG IgA IgM Hepatitis A IgM Ab Hep Bs Antigen Hep B Core IgM Ab Hepatitis C Antibody HIV 1&2 Antibody Screen 03/13/17 03/13/17 03/13/17 12:38 14:06 14:06 WBC RBC Hgb Hct MCV MCH MCHC RDW Plt Count MPV Neut % (Auto) Lymph % (Auto) Miner % (Auto) Eos % (Auto) Baso % (Auto) Neut # Lymph # Miner # Eos # Baso # PT INR Puncture Site pCO2 pO2 HCO3 ABG pH ABG Total CO2 ABG O2 Saturation ABG Base Excess [place] Test ABG Potassium VBG pH VBG pCO2 VBG HCO3 VBG Total CO2 VBG O2 Sat (Calc) VBG Base Excess VBG Potassium A-a O2 Difference Respiratory Index Glucose Lactate FiO2 Crit Value Called To Crit Value Called By Crit Value Read Back Blood Gas Notified Time Sodium Potassium Chloride Carbon Dioxide Anion Gap BUN Creatinine Est GFR ( Amer) Est GFR (Non-Af Amer) POC Glucose (mg/dL) Random Glucose Calcium Iron TIBC % Saturation Ferritin 1940.0 Total Bilirubin Direct Bilirubin 1.1 H AST ALT Alkaline Phosphatase Ammonia < 9 L Lactate Dehydrogenase Total Protein Albumin Globulin Albumin/Globulin Ratio Triglycerides 1727 H Cholesterol 252 H LDL Cholesterol Direct 96 HDL Cholesterol 88 H Lipase Beta HCG, Quant Arterial Blood Potassium Venous Blood Potassium Urine Opiates Screen Urine Methadone Screen Acetaminophen Ur Barbiturates Screen Ur Phencyclidine Scrn Ur Amphetamines Screen U Benzodiazepines Scrn U Oth Cocaine Metabols U Cannabinoids Screen Alcohol, Quantitative IgG IgA IgM Hepatitis A IgM Ab Negative Hep Bs Antigen Negative Hep B Core IgM Ab Negative Hepatitis C Antibody Negative HIV 1&2 Antibody Screen 03/13/17 03/13/17 03/13/17 14:06 14:06 14:06 WBC RBC Hgb Hct MCV MCH MCHC RDW Plt Count MPV Neut % (Auto) Lymph % (Auto) Miner % (Auto) Eos % (Auto) Baso % (Auto) Neut # Lymph # Miner # Eos # Baso # PT 12.7 H INR 1.1 Puncture Site pCO2 pO2 HCO3 ABG pH ABG Total CO2 ABG O2 Saturation ABG Base Excess [place] Test ABG Potassium VBG pH VBG pCO2 VBG HCO3 VBG Total CO2 VBG O2 Sat (Calc) VBG Base Excess VBG Potassium A-a O2 Difference Respiratory Index Glucose Lactate FiO2 Crit Value Called To Crit Value Called By Crit Value Read Back Blood Gas Notified Time Sodium Potassium Chloride Carbon Dioxide Anion Gap BUN Creatinine Est GFR ( Amer) Est GFR (Non-Af Amer) POC Glucose (mg/dL) Random Glucose Calcium Iron TIBC % Saturation Ferritin Total Bilirubin Direct Bilirubin AST ALT Alkaline Phosphatase Ammonia Lactate Dehydrogenase Total Protein Albumin Globulin Albumin/Globulin Ratio Triglycerides Cholesterol LDL Cholesterol Direct HDL Cholesterol Lipase Beta HCG, Quant Arterial Blood Potassium Venous Blood Potassium Urine Opiates Screen Urine Methadone Screen Acetaminophen < 10.0 L Ur Barbiturates Screen Ur Phencyclidine Scrn Ur Amphetamines Screen U Benzodiazepines Scrn U Oth Cocaine Metabols U Cannabinoids Screen Alcohol, Quantitative IgG IgA IgM Hepatitis A IgM Ab Hep Bs Antigen Hep B Core IgM Ab Hepatitis C Antibody HIV 1&2 Antibody Screen Negative 03/13/17 03/13/17 03/13/17 14:07 15:33 15:33 WBC RBC Hgb Hct MCV MCH MCHC RDW Plt Count MPV Neut % (Auto) Lymph % (Auto) Miner % (Auto) Eos % (Auto) Baso % (Auto) Neut # Lymph # Miner # Eos # Baso # PT INR Puncture Site pCO2 pO2 HCO3 ABG pH ABG Total CO2 ABG O2 Saturation ABG Base Excess [place] Test ABG Potassium VBG pH VBG pCO2 VBG HCO3 VBG Total CO2 VBG O2 Sat (Calc) VBG Base Excess VBG Potassium A-a O2 Difference Respiratory Index Glucose Lactate FiO2 Crit Value Called To Crit Value Called By Crit Value Read Back Blood Gas Notified Time Sodium 138 Potassium 3.4 L Chloride 103 Carbon Dioxide 10 L* Anion Gap 28 H BUN 7 Creatinine 0.7 Est GFR ( Amer) > 60 Est GFR (Non-Af Amer) > 60 POC Glucose (mg/dL) Random Glucose 107 H Calcium 8.0 L Iron 201 H TIBC 194 L % Saturation 104 H Ferritin Total Bilirubin Direct Bilirubin AST ALT Alkaline Phosphatase Ammonia Lactate Dehydrogenase Total Protein Albumin Globulin Albumin/Globulin Ratio Triglycerides Cholesterol LDL Cholesterol Direct HDL Cholesterol Lipase Beta HCG, Quant Arterial Blood Potassium Venous Blood Potassium Urine Opiates Screen Urine Methadone Screen Acetaminophen Ur Barbiturates Screen Ur Phencyclidine Scrn Ur Amphetamines Screen U Benzodiazepines Scrn U Oth Cocaine Metabols U Cannabinoids Screen Alcohol, Quantitative IgG 893.6 IgA 202.2 IgM 155.3 Hepatitis A IgM Ab Hep Bs Antigen Hep B Core IgM Ab Hepatitis C Antibody HIV 1&2 Antibody Screen 03/13/17 16:29 WBC RBC Hgb Hct MCV MCH MCHC RDW Plt Count MPV Neut % (Auto) Lymph % (Auto) Miner % (Auto) Eos % (Auto) Baso % (Auto) Neut # Lymph # Miner # Eos # Baso # PT INR Puncture Site pCO2 pO2 HCO3 ABG pH ABG Total CO2 ABG O2 Saturation ABG Base Excess [place] Test ABG Potassium VBG pH VBG pCO2 VBG HCO3 VBG Total CO2 VBG O2 Sat (Calc) VBG Base Excess VBG Potassium A-a O2 Difference Respiratory Index Glucose Lactate FiO2 Crit Value Called To Crit Value Called By Crit Value Read Back Blood Gas Notified Time Sodium Potassium Chloride Carbon Dioxide Anion Gap BUN Creatinine Est GFR ( Amer) Est GFR (Non-Af Amer) POC Glucose (mg/dL) Random Glucose Calcium Iron TIBC % Saturation Ferritin Total Bilirubin Direct Bilirubin AST ALT Alkaline Phosphatase Ammonia Lactate Dehydrogenase Total Protein Albumin Globulin Albumin/Globulin Ratio Triglycerides Cholesterol LDL Cholesterol Direct HDL Cholesterol Lipase Beta HCG, Quant Arterial Blood Potassium Venous Blood Potassium Urine Opiates Screen Positive Urine Methadone Screen Negative Acetaminophen Ur Barbiturates Screen Negative Ur Phencyclidine Scrn Negative Ur Amphetamines Screen Negative U Benzodiazepines Scrn Negative U Oth Cocaine Metabols Negative U Cannabinoids Screen Negative Alcohol, Quantitative IgG IgA IgM Hepatitis A IgM Ab Hep Bs Antigen Hep B Core IgM Ab Hepatitis C Antibody HIV 1&2 Antibody Screen Assessment & Plan - Assessment and Plan (Free Text) Assessment: 31 year old female with history of recent URI presenting with abdominal pain. Active treatment of acute moderate pancreatitis and transaminitis. No prior EGD or colonoscopy. Plan: >multifactorial- alcohol, hypertriglyceridemia >aggressive IVFs- 200-250cc/hr >NPO, pain control >repeat labs at 1900 to assess for clinical improvement >if unchanged, repeat fluid bolus -20cc/kg >recommend endocrine consult >recommend insulin therapy, Gemfibrozil >pending APAP, UDS >negative Hepatitis panel >pending autoimmune workup in setting of acute on chronic LFTs (2014) >pending Abdominal U/S >recent U/S 03/05- no gallstones, normal CBD, hepatomegaly, steatosis >CT A/P -pancreatitis, free fluid in pelvis >alcohol withdrawal protocol >counselled on alcohol cessation >close monitoring of clinical status for signs of decompensation >will follow <Favian Okeefe - Last Filed: 03/13/17 18:21> Meds - Medications Medications: Current Medications Famotidine (Pepcid) 20 mg IVP Q12 MONIKA Hydromorphone HCl (Dilaudid) 1 mg IVP Q4H PRN PRN Reason: Pain, severe (8-10) Last Admin: 03/13/17 14:57 Dose: 1 mg Lactated Ringer's (Lactated Ringer's) 1,000 mls @ 250 mls/hr IV .Q4H MONIKA Last Admin: 03/13/17 17:07 Dose: 250 mls/hr Insulin Human Regular 100 unit (/ Sodium Chloride) 100 mls @ 3 mls/hr IV .Q24H MONIKA Results - Vital Signs Recent Vital Signs: Last Vital Signs Temp 98.2 F 03/13/17 16:00 Pulse 124 H 03/13/17 17:20 Resp 21 03/13/17 17:20 BP 141/101 H 03/13/17 16:28 Pulse Ox 99 03/13/17 17:20 - Labs Result Diagrams: 03/13/17 10:44 03/13/17 15:33 Labs: Laboratory Results - last 24 hr 03/13/17 03/13/17 03/13/17 10:25 10:44 10:44 WBC 6.9 RBC 5.00 Hgb 17.0 H D Hct 49.6 H MCV 99.2 H MCH 34.0 H MCHC 34.3 RDW 13.7 Plt Count 224 MPV 8.9 Neut % (Auto) 78.3 H Lymph % (Auto) 13.4 L Miner % (Auto) 8.0 Eos % (Auto) 0.0 Baso % (Auto) 0.3 Neut # 5.4 Lymph # 0.9 L Miner # 0.5 Eos # 0.0 Baso # 0.0 PT INR Puncture Site pCO2 pO2 HCO3 ABG pH ABG Total CO2 ABG O2 Saturation ABG Base Excess [place] Test ABG Potassium VBG pH VBG pCO2 VBG HCO3 VBG Total CO2 VBG O2 Sat (Calc) VBG Base Excess VBG Potassium A-a O2 Difference Respiratory Index Glucose Lactate FiO2 Crit Value Called To Crit Value Called By Crit Value Read Back Blood Gas Notified Time Sodium 136 Potassium 5.9 H Chloride 94 L Carbon Dioxide 12 L Anion Gap 36 H BUN 10 Creatinine 0.7 Est GFR ( Amer) > 60 Est GFR (Non-Af Amer) > 60 POC Glucose (mg/dL) 131 H Random Glucose 128 H Calcium 9.1 Iron TIBC % Saturation Ferritin Total Bilirubin 2.5 H Direct Bilirubin AST 1051 H ALT 287 H D Alkaline Phosphatase 127 H D Ammonia Lactate Dehydrogenase Total Protein 8.6 H Albumin 4.6 Globulin 4.0 H Albumin/Globulin Ratio 1.2 Triglycerides Cholesterol LDL Cholesterol Direct HDL Cholesterol Lipase 6496 H Beta HCG, Quant Arterial Blood Potassium Venous Blood Potassium Urine Color Urine Clarity Urine pH Ur Specific [place] Urine Protein Urine Glucose (UA) Urine Ketones Urine Blood Urine Nitrate Urine Bilirubin Urine Urobilinogen Ur Leukocyte Esterase Urine WBC (Auto) Urine RBC (Auto) Ur Squamous Epith Cells Urine Bacteria Urine Opiates Screen Urine Methadone Screen Acetaminophen Ur Barbiturates Screen Ur Phencyclidine Scrn Ur Amphetamines Screen U Benzodiazepines Scrn U Oth Cocaine Metabols U Cannabinoids Screen Alcohol, Quantitative 209 H IgG IgA IgM Hepatitis A IgM Ab Hep Bs Antigen Hep B Core IgM Ab Hepatitis C Antibody HIV 1&2 Antibody Screen Ur L.pneumophila Ag 03/13/17 03/13/17 03/13/17 10:48 10:50 12:35 WBC RBC Hgb Hct MCV MCH MCHC RDW Plt Count MPV Neut % (Auto) Lymph % (Auto) Miner % (Auto) Eos % (Auto) Baso % (Auto) Neut # Lymph # Miner # Eos # Baso # PT INR Puncture Site Rra pCO2 25 L pO2 35 114 H HCO3 16.4 L ABG pH 7.33 L ABG Total CO2 14.0 L ABG O2 Saturation 99.2 H ABG Base Excess -10.9 L [place] Test Pos ABG Potassium 3.2 L VBG pH 7.33 VBG pCO2 36 L VBG HCO3 19.1 VBG Total CO2 20.1 L VBG O2 Sat (Calc) 60.1 VBG Base Excess -6.2 L VBG Potassium 3.2 L A-a O2 Difference 4.0 Respiratory Index 0 Glucose 146 H 112 H Lactate 9.5 H* 6.5 H* FiO2 21.0 Crit Value Called To Jd verde Crit Value Called By Melvin siddiqui inside sales engineer Antelmo [facility] Crit Value Read Back Y Y Blood Gas Notified Time 1123 1240 Sodium 139.0 140.0 Potassium Chloride 99.0 109.0 H Carbon Dioxide Anion Gap BUN Creatinine Est GFR ( Amer) Est GFR (Non-Af Amer) POC Glucose (mg/dL) Random Glucose Calcium Iron TIBC % Saturation Ferritin Total Bilirubin Direct Bilirubin AST ALT Alkaline Phosphatase Ammonia Lactate Dehydrogenase 1749 H Total Protein Albumin Globulin Albumin/Globulin Ratio Triglycerides Cholesterol LDL Cholesterol Direct HDL Cholesterol Lipase Beta HCG, Quant < 2.39 Arterial Blood Potassium 3.2 L Venous Blood Potassium 3.2 L Urine Color Urine Clarity Urine pH Ur Specific [place] Urine Protein Urine Glucose (UA) Urine Ketones Urine Blood Urine Nitrate Urine Bilirubin Urine Urobilinogen Ur Leukocyte Esterase Urine WBC (Auto) Urine RBC (Auto) Ur Squamous Epith Cells Urine Bacteria Urine Opiates Screen Urine Methadone Screen Acetaminophen Ur Barbiturates Screen Ur Phencyclidine Scrn Ur Amphetamines Screen U Benzodiazepines Scrn U Oth Cocaine Metabols U Cannabinoids Screen Alcohol, Quantitative IgG IgA IgM Hepatitis A IgM Ab Hep Bs Antigen Hep B Core IgM Ab Hepatitis C Antibody HIV 1&2 Antibody Screen Ur L.pneumophila Ag 03/13/17 03/13/17 03/13/17 12:38 14:06 14:06 WBC RBC Hgb Hct MCV MCH MCHC RDW Plt Count MPV Neut % (Auto) Lymph % (Auto) Miner % (Auto) Eos % (Auto) Baso % (Auto) Neut # Lymph # Miner # Eos # Baso # PT INR Puncture Site pCO2 pO2 HCO3 ABG pH ABG Total CO2 ABG O2 Saturation ABG Base Excess [place] Test ABG Potassium VBG pH VBG pCO2 VBG HCO3 VBG Total CO2 VBG O2 Sat (Calc) VBG Base Excess VBG Potassium A-a O2 Difference Respiratory Index Glucose Lactate FiO2 Crit Value Called To Crit Value Called By Crit Value Read Back Blood Gas Notified Time Sodium Potassium Chloride Carbon Dioxide Anion Gap BUN Creatinine Est GFR ( Amer) Est GFR (Non-Af Amer) POC Glucose (mg/dL) Random Glucose Calcium Iron TIBC % Saturation Ferritin 1940.0 Total Bilirubin Direct Bilirubin 1.1 H AST ALT Alkaline Phosphatase Ammonia < 9 L Lactate Dehydrogenase Total Protein Albumin Globulin Albumin/Globulin Ratio Triglycerides 1727 H Cholesterol 252 H LDL Cholesterol Direct 96 HDL Cholesterol 88 H Lipase Beta HCG, Quant Arterial Blood Potassium Venous Blood Potassium Urine Color Urine Clarity Urine pH Ur Specific [place] Urine Protein Urine Glucose (UA) Urine Ketones Urine Blood Urine Nitrate Urine Bilirubin Urine Urobilinogen Ur Leukocyte Esterase Urine WBC (Auto) Urine RBC (Auto) Ur Squamous Epith Cells Urine Bacteria Urine Opiates Screen Urine Methadone Screen Acetaminophen Ur Barbiturates Screen Ur Phencyclidine Scrn Ur Amphetamines Screen U Benzodiazepines Scrn U Oth Cocaine Metabols U Cannabinoids Screen Alcohol, Quantitative IgG IgA IgM Hepatitis A IgM Ab Negative Hep Bs Antigen Negative Hep B Core IgM Ab Negative Hepatitis C Antibody Negative HIV 1&2 Antibody Screen Ur L.pneumophila Ag 03/13/17 03/13/17 03/13/17 14:06 14:06 14:06 WBC RBC Hgb Hct MCV MCH MCHC RDW Plt Count MPV Neut % (Auto) Lymph % (Auto) Miner % (Auto) Eos % (Auto) Baso % (Auto) Neut # Lymph # Miner # Eos # Baso # PT 12.7 H INR 1.1 Puncture Site pCO2 pO2 HCO3 ABG pH ABG Total CO2 ABG O2 Saturation ABG Base Excess [place] Test ABG Potassium VBG pH VBG pCO2 VBG HCO3 VBG Total CO2 VBG O2 Sat (Calc) VBG Base Excess VBG Potassium A-a O2 Difference Respiratory Index Glucose Lactate FiO2 Crit Value Called To Crit Value Called By Crit Value Read Back Blood Gas Notified Time Sodium Potassium Chloride Carbon Dioxide Anion Gap BUN Creatinine Est GFR ( Amer) Est GFR (Non-Af Amer) POC Glucose (mg/dL) Random Glucose Calcium Iron TIBC % Saturation Ferritin Total Bilirubin Direct Bilirubin AST ALT Alkaline Phosphatase Ammonia Lactate Dehydrogenase Total Protein Albumin Globulin Albumin/Globulin Ratio Triglycerides Cholesterol LDL Cholesterol Direct HDL Cholesterol Lipase Beta HCG, Quant Arterial Blood Potassium Venous Blood Potassium Urine Color Urine Clarity Urine pH Ur Specific [place] Urine Protein Urine Glucose (UA) Urine Ketones Urine Blood Urine Nitrate Urine Bilirubin Urine Urobilinogen Ur Leukocyte Esterase Urine WBC (Auto) Urine RBC (Auto) Ur Squamous Epith Cells Urine Bacteria Urine Opiates Screen Urine Methadone Screen Acetaminophen < 10.0 L Ur Barbiturates Screen Ur Phencyclidine Scrn Ur Amphetamines Screen U Benzodiazepines Scrn U Oth Cocaine Metabols U Cannabinoids Screen Alcohol, Quantitative IgG IgA IgM Hepatitis A IgM Ab Hep Bs Antigen Hep B Core IgM Ab Hepatitis C Antibody HIV 1&2 Antibody Screen Negative Ur L.pneumophila Ag 03/13/17 03/13/17 03/13/17 14:07 15:33 15:33 WBC RBC Hgb Hct MCV MCH MCHC RDW Plt Count MPV Neut % (Auto) Lymph % (Auto) Miner % (Auto) Eos % (Auto) Baso % (Auto) Neut # Lymph # Miner # Eos # Baso # PT INR Puncture Site pCO2 pO2 HCO3 ABG pH ABG Total CO2 ABG O2 Saturation ABG Base Excess [place] Test ABG Potassium VBG pH VBG pCO2 VBG HCO3 VBG Total CO2 VBG O2 Sat (Calc) VBG Base Excess VBG Potassium A-a O2 Difference Respiratory Index Glucose Lactate FiO2 Crit Value Called To Crit Value Called By Crit Value Read Back Blood Gas Notified Time Sodium 138 Potassium 3.4 L Chloride 103 Carbon Dioxide 10 L* Anion Gap 28 H BUN 7 Creatinine 0.7 Est GFR ( Amer) > 60 Est GFR (Non-Af Amer) > 60 POC Glucose (mg/dL) Random Glucose 107 H Calcium 8.0 L Iron 201 H TIBC 194 L % Saturation 104 H Ferritin Total Bilirubin Direct Bilirubin AST ALT Alkaline Phosphatase Ammonia Lactate Dehydrogenase Total Protein Albumin Globulin Albumin/Globulin Ratio Triglycerides Cholesterol LDL Cholesterol Direct HDL Cholesterol Lipase Beta HCG, Quant Arterial Blood Potassium Venous Blood Potassium Urine Color Urine Clarity Urine pH Ur Specific [place] Urine Protein Urine Glucose (UA) Urine Ketones Urine Blood Urine Nitrate Urine Bilirubin Urine Urobilinogen Ur Leukocyte Esterase Urine WBC (Auto) Urine RBC (Auto) Ur Squamous Epith Cells Urine Bacteria Urine Opiates Screen Urine Methadone Screen Acetaminophen Ur Barbiturates Screen Ur Phencyclidine Scrn Ur Amphetamines Screen U Benzodiazepines Scrn U Oth Cocaine Metabols U Cannabinoids Screen Alcohol, Quantitative IgG 893.6 IgA 202.2 IgM 155.3 Hepatitis A IgM Ab Hep Bs Antigen Hep B Core IgM Ab Hepatitis C Antibody HIV 1&2 Antibody Screen Ur L.pneumophila Ag 03/13/17 03/13/17 03/13/17 16:29 16:29 17:43 WBC RBC Hgb Hct MCV MCH MCHC RDW Plt Count MPV Neut % (Auto) Lymph % (Auto) Miner % (Auto) Eos % (Auto) Baso % (Auto) Neut # Lymph # Miner # Eos # Baso # PT INR Puncture Site pCO2 pO2 HCO3 ABG pH ABG Total CO2 ABG O2 Saturation ABG Base Excess [place] Test ABG Potassium VBG pH VBG pCO2 VBG HCO3 VBG Total CO2 VBG O2 Sat (Calc) VBG Base Excess VBG Potassium A-a O2 Difference Respiratory Index Glucose Lactate FiO2 Crit Value Called To Crit Value Called By Crit Value Read Back Blood Gas Notified Time Sodium Potassium Chloride Carbon Dioxide Anion Gap BUN Creatinine Est GFR ( Amer) Est GFR (Non-Af Amer) POC Glucose (mg/dL) Random Glucose Calcium Iron TIBC % Saturation Ferritin Total Bilirubin Direct Bilirubin AST ALT Alkaline Phosphatase Ammonia Lactate Dehydrogenase Total Protein Albumin Globulin Albumin/Globulin Ratio Triglycerides Cholesterol LDL Cholesterol Direct HDL Cholesterol Lipase Beta HCG, Quant Arterial Blood Potassium Venous Blood Potassium Urine Color Urine Clarity Urine pH Ur Specific [place] Urine Protein Urine Glucose (UA) Urine Ketones Urine Blood Urine Nitrate Urine Bilirubin Urine Urobilinogen Ur Leukocyte Esterase Urine WBC (Auto) Urine RBC (Auto) Ur Squamous Epith Cells Urine Bacteria Urine Opiates Screen Positive Positive Urine Methadone Screen Negative Negative Acetaminophen Ur Barbiturates Screen Negative Negative Ur Phencyclidine Scrn Negative Negative Ur Amphetamines Screen Negative Negative U Benzodiazepines Scrn Negative Negative U Oth Cocaine Metabols Negative Negative U Cannabinoids Screen Negative Negative Alcohol, Quantitative IgG IgA IgM Hepatitis A IgM Ab Hep Bs Antigen Hep B Core IgM Ab Hepatitis C Antibody HIV 1&2 Antibody Screen Ur L.pneumophila Ag Negative 03/13/17 03/13/17 17:46 18:10 WBC RBC Hgb Hct MCV MCH MCHC RDW Plt Count MPV Neut % (Auto) Lymph % (Auto) Miner % (Auto) Eos % (Auto) Baso % (Auto) Neut # Lymph # Miner # Eos # Baso # PT INR Puncture Site pCO2 pO2 HCO3 ABG pH ABG Total CO2 ABG O2 Saturation ABG Base Excess [place] Test ABG Potassium VBG pH VBG pCO2 VBG HCO3 VBG Total CO2 VBG O2 Sat (Calc) VBG Base Excess VBG Potassium A-a O2 Difference Respiratory Index Glucose Lactate FiO2 Crit Value Called To Crit Value Called By Crit Value Read Back Blood Gas Notified Time Sodium Potassium Chloride Carbon Dioxide Anion Gap BUN Creatinine Est GFR ( Amer) Est GFR (Non-Af Amer) POC Glucose (mg/dL) 131 H Random Glucose Calcium Iron TIBC % Saturation Ferritin Total Bilirubin Direct Bilirubin AST ALT Alkaline Phosphatase Ammonia Lactate Dehydrogenase Total Protein Albumin Globulin Albumin/Globulin Ratio Triglycerides Cholesterol LDL Cholesterol Direct HDL Cholesterol Lipase Beta HCG, Quant Arterial Blood Potassium Venous Blood Potassium Urine Color Yellow Urine Clarity Hazy Urine pH 6.0 Ur Specific [place] 1.027 Urine Protein Negative Urine Glucose (UA) Normal Urine Ketones 1+ H Urine Blood 2+ H Urine Nitrate Negative Urine Bilirubin Negative Urine Urobilinogen 2.0 H Ur Leukocyte Esterase Neg Urine WBC (Auto) 2 Urine RBC (Auto) 16 H Ur Squamous Epith Cells 11 H Urine Bacteria Few H Urine Opiates Screen Urine Methadone Screen Acetaminophen Ur Barbiturates Screen Ur Phencyclidine Scrn Ur Amphetamines Screen U Benzodiazepines Scrn U Oth Cocaine Metabols U Cannabinoids Screen Alcohol, Quantitative IgG IgA IgM Hepatitis A IgM Ab Hep Bs Antigen Hep B Core IgM Ab Hepatitis C Antibody HIV 1&2 Antibody Screen Ur L.pneumophila Ag Attending/Attestation - Attestation I have personally seen and examined this patient.: Yes I have fully participated in the care of the patient.: Yes I have reviewed all pertinent clinical information: Yes Notes (Text): 03/13/17 18:15 I have seen and examined patient with GI fellow. Agree with above documentation with the following additions. In brief, this is a 31 year old female with history of ETOH abuse who presents to hospital with complaint of sudden onset severe abdominal pain. She describes a 10/10 generalized discomfort radiating to back that is associated with increased bloating, nausea , and two episodes of non-bloody emesis. She admits to ongoing ETOH consumption , most recently the night prior to symptom onset where she consumed beer, wine, and hard liquor shots. She was recently seen in hospital ER for complaint of dyspnea and given medication for suspected URI. She denies fever/chills, weight loss, rectal bleeding, or change in bowel habits. No prior endoscopic evaluation. ETOH abuse Sudden onset severe abdominal pain - acute pancreatitis Hypertriglyceridemia CT imaging reviewed by me showing pancreatic edema with moe-pancreatic fluid consistent with acute pancreatitis - NPO - Aggressive IVF hydration over first 24 hours, pain control - Anti-emetic therapy PRN - Suggest endocrine consultation given hypertriglyceridemia with acute severe pancreatitis - Begin gemfibrozil therapy and consider insulin therapy for acute presentation - Obtain viral hepatitis and autoimmune panels, continue to monitor LFTs - Repeat abdominal US, though recent imaging did not show presence of cholelithiasis - Will continue to monitor patient clinical course
[2017-03-13 17:21] LABS: LEGIONELLA AG URINE NEGATIVE (NEGATIVE)
[2017-03-13 17:57] LABS: RBC URINE 16 /hpf (0-3); URINE BACTERIA FEW (<OCC); URINE BILIRUBIN NEGATIVE (NEGATIVE); URINE BLOOD 2+ (NEGATIVE); URINE COLOR Yellow (YELLOW); URINE GLUCOSE (UA) NORMAL (Normal); URINE KETONE 1+ mg/dL (NEGATIVE); URINE LEUKOCYTE ESTERASE NEG Leu/uL (Negative); URINE PROTEIN NEGATIVE (NEGATIVE); WBC URINE 2 /hpf (0-5)
[2017-03-13] MEDS ORDERED: Sodium Bicarbonate (8.4%) 50 Meq Syringe IVP ONE (18:00)
[2017-03-13] MEDS ORDERED: Insulin Human Regular 100 UNIT in Sodium Chloride 0.9% 99 ML IV SCH (18:00)
--- NOTE | 2017-03-13 18:29 | CP.PCM.CON ---
<Dalton Thomas E - Last Filed: 03/13/17 18:26> History of Present Illness - History of Present Illness History of Present Illness: CC: Abdominal Pain HPI: Patient is a 31 year old female past medical history of hypertension who presents tot he ED with complaints of abdominal pain, vomiting and watery diarrhea that started 2-3 days ago. Patient describes her abdominal pain as a 7/ 10 continuos cramping pain that is localized to the upper abdomen with an epigastric origin. Patient reports that her abdominal pain radiates to the middle of her back. Patient reports that she had a lot of wine glasses and 3 shots of vodka at a [facility] 1-2 days ago and noted increased alcohol intake at the republic[facility]. Furthermore, patient admits to daily alcohol use of ( 2-3 beers, 3-5 shots and wine). Patient admits to associated symptoms of SOB, hot flashes, dizziness, 1-2 episodes of watery diarrhea daily for the past 2-3 days, decrease PO intake for 4 days, abdominal distentions, unusual bloating. Patient denies fever, chills, chest pain, hematemesis, hematochezia. Patient was recently in the ER (03/05/17) for symptoms of URI and abdominal pain. Patient had an abdominal US, which showed enlarged liver measuring up to 20.6cm in length with diffuse increased echogenicity suggestive for fatty infiltration. Patient was also discharge with Augmentin 875-125mg for URI symptoms. PMHx: HTN PSHx: Denies FHx: Denies Medication: HTN medication ( Patient does not recall) Allergies: NKDA Social Hx: Lives alone. Admits to daily consumption of alcohol (2-3 beers, 3-5 shots and wine), and denies former or current use of tobacco and illicit remi Review of Systems - Constitutional Constitutional: Excessive Sweating, Fatigue, Weakness. absent: Chills, Fever, Headache, Increased Appetite - EENT Eyes: absent: Blurred Vision, Change in Vision Ears: Dizziness - Cardiovascular Cardiovascular: Diaphoresis, Dyspnea, Lightheadedness, Palpitations. absent: Chest Pain - Respiratory Respiratory: Dyspnea, Dyspnea on Exertion, Pain on Inspiration - Gastrointestinal Gastrointestinal: Abdominal Pain, Cramping, Nausea, Vomiting - Musculoskeletal Musculoskeletal: Numbness, Tingling - Neurological Neurological: Dizziness, Weakness. absent: Headaches, Paresthesias, Syncope, Tingling - Endocrine Endocrine: Fatigue, Palpitations Past Patient History - Infectious Disease Hx of Infectious Diseases: None - Past Social History Smoking Status: Never Smoked - CARDIAC Hx Hypertension: Yes (noncompliant with meds) - PULMONARY Hx Respiratory Disorders: No - NEUROLOGICAL Hx Neurological Disorder: No - HEENT Hx HEENT Problems: No - RENAL Hx Chronic Kidney Disease: No - ENDOCRINE/METABOLIC Hx Endocrine Disorders: No - HEMATOLOGICAL/ONCOLOGICAL Hx Blood Disorders: No - INTEGUMENTARY Hx Dermatological Problems: No - MUSCULOSKELETAL/RHEUMATOLOGICAL Hx Musculoskeletal Disorders: No - GASTROINTESTINAL Hx Gastritis: Yes - GENITOURINARY/GYNECOLOGICAL Hx Genitourinary Disorders: No - PSYCHIATRIC Hx Substance Use: No - SURGICAL HISTORY Hx Surgeries: No - ANESTHESIA Hx Anesthesia: No Meds Allergies/Adverse Reactions: Allergies Allergy/AdvReac Type Severity Reaction Status Date / Time No Known Allergies Allergy Verified 03/13/17 10:23 - Medications Medications: Current Medications Famotidine (Pepcid) 20 mg IVP Q12 MONIKA Hydromorphone HCl (Dilaudid) 1 mg IVP Q4H PRN PRN Reason: Pain, severe (8-10) Last Admin: 03/13/17 14:57 Dose: 1 mg Lactated Ringer's (Lactated Ringer's) 1,000 mls @ 250 mls/hr IV .Q4H MONIKA Last Admin: 03/13/17 17:07 Dose: 250 mls/hr Insulin Human Regular 100 unit (/ Sodium Chloride) 100 mls @ 3 mls/hr IV .Q24H [facility] Physical Exam - Head Exam Head Exam: ATRAUMATIC, NORMAL INSPECTION - Eye Exam Eye Exam: EOMI - ENT Exam ENT Exam: Mucous Membranes Dry - Respiratory Exam Respiratory Exam: Clear to Auscultation Bilateral, NORMAL BREATHING PATTERN - Cardiovascular Exam Cardiovascular Exam: Tachycardia, REGULAR RHYTHM, +S1, +S2 - GI/Abdominal Exam GI & Abdominal Exam: Distended, Guarding, Normal Bowel Sounds, Tenderness - Extremities Exam Extremities exam: Positive for: normal inspection. Negative for: calf tenderness, pedal edema, tenderness - Neurological Exam Neurological exam: Alert, Oriented x3 - Psychiatric Exam Psychiatric exam: Normal Affect, Normal Mood - Skin Skin Exam: Normal Color Results - Vital Signs Recent Vital Signs: Last Vital Signs Temp 98.2 F 03/13/17 16:00 Pulse 129 H 03/13/17 18:20 Resp 22 03/13/17 18:20 BP 140/108 H 03/13/17 17:29 Pulse Ox 97 03/13/17 18:20 - Labs Result Diagrams: 03/13/17 10:44 03/13/17 15:33 Labs: Laboratory Results - last 24 hr 03/13/17 03/13/17 03/13/17 10:25 10:44 10:44 WBC 6.9 RBC 5.00 Hgb 17.0 H D Hct 49.6 H MCV 99.2 H MCH 34.0 H MCHC 34.3 RDW 13.7 Plt Count 224 MPV 8.9 Neut % (Auto) 78.3 H Lymph % (Auto) 13.4 L Bland % (Auto) 8.0 Eos % (Auto) 0.0 Baso % (Auto) 0.3 Neut # 5.4 Lymph # 0.9 L Bland # 0.5 Eos # 0.0 Baso # 0.0 PT INR Puncture Site pCO2 pO2 HCO3 ABG pH ABG Total CO2 ABG O2 Saturation ABG Base Excess Carroll Test ABG Potassium VBG pH VBG pCO2 VBG HCO3 VBG Total CO2 VBG O2 Sat (Calc) VBG Base Excess VBG Potassium A-a O2 Difference Respiratory Index Glucose Lactate FiO2 Crit Value Called To Crit Value Called By Crit Value Read Back Blood Gas Notified Time Sodium 136 Potassium 5.9 H Chloride 94 L Carbon Dioxide 12 L Anion Gap 36 H BUN 10 Creatinine 0.7 Est GFR ( Amer) > 60 Est GFR (Non-Af Amer) > 60 POC Glucose (mg/dL) 131 H Random Glucose 128 H Calcium 9.1 Iron TIBC % Saturation Ferritin Total Bilirubin 2.5 H Direct Bilirubin AST 1051 H ALT 287 H D Alkaline Phosphatase 127 H D Ammonia Lactate Dehydrogenase Total Protein 8.6 H Albumin 4.6 Globulin 4.0 H Albumin/Globulin Ratio 1.2 Triglycerides Cholesterol LDL Cholesterol Direct HDL Cholesterol Lipase 6496 H Beta HCG, Quant Arterial Blood Potassium Venous Blood Potassium Urine Color Urine Clarity Urine pH Ur Specific [place] Urine Protein Urine Glucose (UA) Urine Ketones Urine Blood Urine Nitrate Urine Bilirubin Urine Urobilinogen Ur Leukocyte Esterase Urine WBC (Auto) Urine RBC (Auto) Ur Squamous Epith Cells Urine Bacteria Urine Opiates Screen Urine Methadone Screen Acetaminophen Ur Barbiturates Screen Ur Phencyclidine Scrn Ur Amphetamines Screen U Benzodiazepines Scrn U Oth Cocaine Metabols U Cannabinoids Screen Alcohol, Quantitative 209 H IgG IgA IgM Hepatitis A IgM Ab Hep Bs Antigen Hep B Core IgM Ab Hepatitis C Antibody HIV 1&2 Antibody Screen Ur L.pneumophila Ag 03/13/17 03/13/17 03/13/17 10:48 10:50 12:35 WBC RBC Hgb Hct MCV MCH MCHC RDW Plt Count MPV Neut % (Auto) Lymph % (Auto) Bland % (Auto) Eos % (Auto) Baso % (Auto) Neut # Lymph # Bland # Eos # Baso # PT INR Puncture Site Rra pCO2 25 L pO2 35 114 H HCO3 16.4 L ABG pH 7.33 L ABG Total CO2 14.0 L ABG O2 Saturation 99.2 H ABG Base Excess -10.9 L Carroll Test Pos ABG Potassium 3.2 L VBG pH 7.33 VBG pCO2 36 L VBG HCO3 19.1 VBG Total CO2 20.1 L VBG O2 Sat (Calc) 60.1 VBG Base Excess -6.2 L VBG Potassium 3.2 L A-a O2 Difference 4.0 Respiratory Index 0 Glucose 146 H 112 H Lactate 9.5 H* 6.5 H* FiO2 21.0 Crit Value Called To Jd verde Crit Value Called By Melvin siddiqui tech writer Antelmo sanidad Crit Value Read Back Y Y Blood Gas Notified Time 1123 1240 Sodium 139.0 140.0 Potassium Chloride 99.0 109.0 H Carbon Dioxide Anion Gap BUN Creatinine Est GFR ( Amer) Est GFR (Non-Af Amer) POC Glucose (mg/dL) Random Glucose Calcium Iron TIBC % Saturation Ferritin Total Bilirubin Direct Bilirubin AST ALT Alkaline Phosphatase Ammonia Lactate Dehydrogenase 1749 H Total Protein Albumin Globulin Albumin/Globulin Ratio Triglycerides Cholesterol LDL Cholesterol Direct HDL Cholesterol Lipase Beta HCG, Quant < 2.39 Arterial Blood Potassium 3.2 L Venous Blood Potassium 3.2 L Urine Color Urine Clarity Urine pH Ur Specific [place] Urine Protein Urine Glucose (UA) Urine Ketones Urine Blood Urine Nitrate Urine Bilirubin Urine Urobilinogen Ur Leukocyte Esterase Urine WBC (Auto) Urine RBC (Auto) Ur Squamous Epith Cells Urine Bacteria Urine Opiates Screen Urine Methadone Screen Acetaminophen Ur Barbiturates Screen Ur Phencyclidine Scrn Ur Amphetamines Screen U Benzodiazepines Scrn U Oth Cocaine Metabols U Cannabinoids Screen Alcohol, Quantitative IgG IgA IgM Hepatitis A IgM Ab Hep Bs Antigen Hep B Core IgM Ab Hepatitis C Antibody HIV 1&2 Antibody Screen Ur L.pneumophila Ag 03/13/17 03/13/17 03/13/17 12:38 14:06 14:06 WBC RBC Hgb Hct MCV MCH MCHC RDW Plt Count MPV Neut % (Auto) Lymph % (Auto) Bland % (Auto) Eos % (Auto) Baso % (Auto) Neut # Lymph # Bland # Eos # Baso # PT INR Puncture Site pCO2 pO2 HCO3 ABG pH ABG Total CO2 ABG O2 Saturation ABG Base Excess [place] Test ABG Potassium VBG pH VBG pCO2 VBG HCO3 VBG Total CO2 VBG O2 Sat (Calc) VBG Base Excess VBG Potassium A-a O2 Difference Respiratory Index Glucose Lactate FiO2 Crit Value Called To Crit Value Called By Crit Value Read Back Blood Gas Notified Time Sodium Potassium Chloride Carbon Dioxide Anion Gap BUN Creatinine Est GFR ( Amer) Est GFR (Non-Af Amer) POC Glucose (mg/dL) Random Glucose Calcium Iron TIBC % Saturation Ferritin 1940.0 Total Bilirubin Direct Bilirubin 1.1 H AST ALT Alkaline Phosphatase Ammonia < 9 L Lactate Dehydrogenase Total Protein Albumin Globulin Albumin/Globulin Ratio Triglycerides 1727 H Cholesterol 252 H LDL Cholesterol Direct 96 HDL Cholesterol 88 H Lipase Beta HCG, Quant Arterial Blood Potassium Venous Blood Potassium Urine Color Urine Clarity Urine pH Ur Specific [place] Urine Protein Urine Glucose (UA) Urine Ketones Urine Blood Urine Nitrate Urine Bilirubin Urine Urobilinogen Ur Leukocyte Esterase Urine WBC (Auto) Urine RBC (Auto) Ur Squamous Epith Cells Urine Bacteria Urine Opiates Screen Urine Methadone Screen Acetaminophen Ur Barbiturates Screen Ur Phencyclidine Scrn Ur Amphetamines Screen U Benzodiazepines Scrn U Oth Cocaine Metabols U Cannabinoids Screen Alcohol, Quantitative IgG IgA IgM Hepatitis A IgM Ab Negative Hep Bs Antigen Negative Hep B Core IgM Ab Negative Hepatitis C Antibody Negative HIV 1&2 Antibody Screen Ur L.pneumophila Ag 03/13/17 03/13/17 03/13/17 14:06 14:06 14:06 WBC RBC Hgb Hct MCV MCH MCHC RDW Plt Count MPV Neut % (Auto) Lymph % (Auto) Bland % (Auto) Eos % (Auto) Baso % (Auto) Neut # Lymph # Bland # Eos # Baso # PT 12.7 H INR 1.1 Puncture Site pCO2 pO2 HCO3 ABG pH ABG Total CO2 ABG O2 Saturation ABG Base Excess [place] Test ABG Potassium VBG pH VBG pCO2 VBG HCO3 VBG Total CO2 VBG O2 Sat (Calc) VBG Base Excess VBG Potassium A-a O2 Difference Respiratory Index Glucose Lactate FiO2 Crit Value Called To Crit Value Called By Crit Value Read Back Blood Gas Notified Time Sodium Potassium Chloride Carbon Dioxide Anion Gap BUN Creatinine Est GFR ( Amer) Est GFR (Non-Af Amer) POC Glucose (mg/dL) Random Glucose Calcium Iron TIBC % Saturation Ferritin Total Bilirubin Direct Bilirubin AST ALT Alkaline Phosphatase Ammonia Lactate Dehydrogenase Total Protein Albumin Globulin Albumin/Globulin Ratio Triglycerides Cholesterol LDL Cholesterol Direct HDL Cholesterol Lipase Beta HCG, Quant Arterial Blood Potassium Venous Blood Potassium Urine Color Urine Clarity Urine pH Ur Specific [place] Urine Protein Urine Glucose (UA) Urine Ketones Urine Blood Urine Nitrate Urine Bilirubin Urine Urobilinogen Ur Leukocyte Esterase Urine WBC (Auto) Urine RBC (Auto) Ur Squamous Epith Cells Urine Bacteria Urine Opiates Screen Urine Methadone Screen Acetaminophen < 10.0 L Ur Barbiturates Screen Ur Phencyclidine Scrn Ur Amphetamines Screen U Benzodiazepines Scrn U Oth Cocaine Metabols U Cannabinoids Screen Alcohol, Quantitative IgG IgA IgM Hepatitis A IgM Ab Hep Bs Antigen Hep B Core IgM Ab Hepatitis C Antibody HIV 1&2 Antibody Screen Negative Ur L.pneumophila Ag 03/13/17 03/13/17 03/13/17 14:07 15:33 15:33 WBC RBC Hgb Hct MCV MCH MCHC RDW Plt Count MPV Neut % (Auto) Lymph % (Auto) Bland % (Auto) Eos % (Auto) Baso % (Auto) Neut # Lymph # Bland # Eos # Baso # PT INR Puncture Site pCO2 pO2 HCO3 ABG pH ABG Total CO2 ABG O2 Saturation ABG Base Excess [place] Test ABG Potassium VBG pH VBG pCO2 VBG HCO3 VBG Total CO2 VBG O2 Sat (Calc) VBG Base Excess VBG Potassium A-a O2 Difference Respiratory Index Glucose Lactate FiO2 Crit Value Called To Crit Value Called By Crit Value Read Back Blood Gas Notified Time Sodium 138 Potassium 3.4 L Chloride 103 Carbon Dioxide 10 L* Anion Gap 28 H BUN 7 Creatinine 0.7 Est GFR ( Amer) > 60 Est GFR (Non-Af Amer) > 60 POC Glucose (mg/dL) Random Glucose 107 H Calcium 8.0 L Iron 201 H TIBC 194 L % Saturation 104 H Ferritin Total Bilirubin Direct Bilirubin AST ALT Alkaline Phosphatase Ammonia Lactate Dehydrogenase Total Protein Albumin Globulin Albumin/Globulin Ratio Triglycerides Cholesterol LDL Cholesterol Direct HDL Cholesterol Lipase Beta HCG, Quant Arterial Blood Potassium Venous Blood Potassium Urine Color Urine Clarity Urine pH Ur Specific [place] Urine Protein Urine Glucose (UA) Urine Ketones Urine Blood Urine Nitrate Urine Bilirubin Urine Urobilinogen Ur Leukocyte Esterase Urine WBC (Auto) Urine RBC (Auto) Ur Squamous Epith Cells Urine Bacteria Urine Opiates Screen Urine Methadone Screen Acetaminophen Ur Barbiturates Screen Ur Phencyclidine Scrn Ur Amphetamines Screen U Benzodiazepines Scrn U Oth Cocaine Metabols U Cannabinoids Screen Alcohol, Quantitative IgG 893.6 IgA 202.2 IgM 155.3 Hepatitis A IgM Ab Hep Bs Antigen Hep B Core IgM Ab Hepatitis C Antibody HIV 1&2 Antibody Screen Ur L.pneumophila Ag 03/13/17 03/13/17 03/13/17 16:29 16:29 17:43 WBC RBC Hgb Hct MCV MCH MCHC RDW Plt Count MPV Neut % (Auto) Lymph % (Auto) Bland % (Auto) Eos % (Auto) Baso % (Auto) Neut # Lymph # Bland # Eos # Baso # PT INR Puncture Site pCO2 pO2 HCO3 ABG pH ABG Total CO2 ABG O2 Saturation ABG Base Excess [place] Test ABG Potassium VBG pH VBG pCO2 VBG HCO3 VBG Total CO2 VBG O2 Sat (Calc) VBG Base Excess VBG Potassium A-a O2 Difference Respiratory Index Glucose Lactate FiO2 Crit Value Called To Crit Value Called By Crit Value Read Back Blood Gas Notified Time Sodium Potassium Chloride Carbon Dioxide Anion Gap BUN Creatinine Est GFR ( Amer) Est GFR (Non-Af Amer) POC Glucose (mg/dL) Random Glucose Calcium Iron TIBC % Saturation Ferritin Total Bilirubin Direct Bilirubin AST ALT Alkaline Phosphatase Ammonia Lactate Dehydrogenase Total Protein Albumin Globulin Albumin/Globulin Ratio Triglycerides Cholesterol LDL Cholesterol Direct HDL Cholesterol Lipase Beta HCG, Quant Arterial Blood Potassium Venous Blood Potassium Urine Color Urine Clarity Urine pH Ur Specific [place] Urine Protein Urine Glucose (UA) Urine Ketones Urine Blood Urine Nitrate Urine Bilirubin Urine Urobilinogen Ur Leukocyte Esterase Urine WBC (Auto) Urine RBC (Auto) Ur Squamous Epith Cells Urine Bacteria Urine Opiates Screen Positive Positive Urine Methadone Screen Negative Negative Acetaminophen Ur Barbiturates Screen Negative Negative Ur Phencyclidine Scrn Negative Negative Ur Amphetamines Screen Negative Negative U Benzodiazepines Scrn Negative Negative U Oth Cocaine Metabols Negative Negative U Cannabinoids Screen Negative Negative Alcohol, Quantitative IgG IgA IgM Hepatitis A IgM Ab Hep Bs Antigen Hep B Core IgM Ab Hepatitis C Antibody HIV 1&2 Antibody Screen Ur L.pneumophila Ag Negative 03/13/17 03/13/17 17:46 18:10 WBC RBC Hgb Hct MCV MCH MCHC RDW Plt Count MPV Neut % (Auto) Lymph % (Auto) Bland % (Auto) Eos % (Auto) Baso % (Auto) Neut # Lymph # Bland # Eos # Baso # PT INR Puncture Site pCO2 pO2 HCO3 ABG pH ABG Total CO2 ABG O2 Saturation ABG Base Excess [place] Test ABG Potassium VBG pH VBG pCO2 VBG HCO3 VBG Total CO2 VBG O2 Sat (Calc) VBG Base Excess VBG Potassium A-a O2 Difference Respiratory Index Glucose Lactate FiO2 Crit Value Called To Crit Value Called By Crit Value Read Back Blood Gas Notified Time Sodium Potassium Chloride Carbon Dioxide Anion Gap BUN Creatinine Est GFR ( Amer) Est GFR (Non-Af Amer) POC Glucose (mg/dL) 131 H Random Glucose Calcium Iron TIBC % Saturation Ferritin Total Bilirubin Direct Bilirubin AST ALT Alkaline Phosphatase Ammonia Lactate Dehydrogenase Total Protein Albumin Globulin Albumin/Globulin Ratio Triglycerides Cholesterol LDL Cholesterol Direct HDL Cholesterol Lipase Beta HCG, Quant Arterial Blood Potassium Venous Blood Potassium Urine Color Yellow Urine Clarity Hazy Urine pH 6.0 Ur Specific [place] 1.027 Urine Protein Negative Urine Glucose (UA) Normal Urine Ketones 1+ H Urine Blood 2+ H Urine Nitrate Negative Urine Bilirubin Negative Urine Urobilinogen 2.0 H Ur Leukocyte Esterase Neg Urine WBC (Auto) 2 Urine RBC (Auto) 16 H Ur Squamous Epith Cells 11 H Urine Bacteria Few H Urine Opiates Screen Urine Methadone Screen Acetaminophen Ur Barbiturates Screen Ur Phencyclidine Scrn Ur Amphetamines Screen U Benzodiazepines Scrn U Oth Cocaine Metabols U Cannabinoids Screen Alcohol, Quantitative IgG IgA IgM Hepatitis A IgM Ab Hep Bs Antigen Hep B Core IgM Ab Hepatitis C Antibody HIV 1&2 Antibody Screen Ur L.pneumophila Ag Assessment & Plan - Assessment and Plan (Free Text) Assessment: Patient is a 31 year old female past medical history of hypertension who presents tot he ED with complaints of abdominal pain, vomiting and watery diarrhea that started 2-3 days ago, with lactate level of 9.5, 6.5 and lipase of 6496. Patient was admitted to the ICU with consideration of acute pancreatitis and transaminitis. Plan: Neuro: Alert, awake and oriented Cardio: No acute issues Pulm: No acute issues GI: Acute Pancreatitis and transaminitis GI consult, Dr. Okeefe---> help appreciated Imaging: Abdominal US (03/05/17): Enlarged liver measuring up to 20.6cm in length with diffuse increased echogenicity suggestive for fatty infiltration Chest CT/Abdomen/Pelvis ( 03/13/17): Extensive peripancreatic inflammatory stranding and fluid which tracks inferiorly as well as pancreatic edema. Constellation of findings consistent with acute pancreatitis. Correlate clinically including amylase and lipase. * Hepatomegaly. Severe diffuse hypoattenuation of the liver compatible with hepatic steatosis. 2.0 x 4.2 cm more focal hypodensity within the inferior right hepatic lobe near the portal confluence, possibly more focal fatty infiltration. * Contrast within the gallbladder presumably due to vicarious excretion. * Small to moderate pelvic free fluid. Labs: Lactate: 9.5, 6.5 Lipase: 6496 AST/ALT: 1051/287 Lactate DH:[id number] T, LDL: 252, HDL: 88 Alcohol level: 209 Hepatitis panel: Negative F/u stool culture, ova and parasite, stool occult Medication/Management: * NPO * Dilaudid 1mg IV Q4H PRN for pain control * LR @ 250mls/hr Endo: Hypertriglyceridemia Endocrinology, Dr. Sung---> Help appreciated Medication/Management: * Insulin drip at 3mls/hr * Accuchecks Q1 Psych: Alcohol disorder * Educated on alcohol cessation * Alcohol withdrawal protocol ID: No acute issues Prophylaxis: DVT: SCDs GI: Pepcid 20mg IVP Q12H <Raul Roper - Last Filed: 03/13/17 18:36> Meds - Medications Medications: Current Medications Famotidine (Pepcid) 20 mg IVP Q12 MONIKA Hydromorphone HCl (Dilaudid) 1 mg IVP Q4H PRN PRN Reason: Pain, severe (8-10) Last Admin: 03/13/17 14:57 Dose: 1 mg Lactated Ringer's (Lactated Ringer's) 1,000 mls @ 250 mls/hr IV .Q4H MONIKA Last Admin: 03/13/17 17:07 Dose: 250 mls/hr Insulin Human Regular 100 unit (/ Sodium Chloride) 100 mls @ 3 mls/hr IV .Q24H [facility] Last Admin: 03/13/17 18:27 Dose: 3 mls/hr Results - Vital Signs Recent Vital Signs: Last Vital Signs Temp 98.2 F 03/13/17 16:00 Pulse 129 H 03/13/17 18:20 Resp 22 03/13/17 18:20 BP 140/108 H 03/13/17 17:29 Pulse Ox 97 03/13/17 18:20 - Labs Result Diagrams: 03/13/17 10:44 03/13/17 15:33 Labs: Laboratory Results - last 24 hr 03/13/17 03/13/17 03/13/17 10:25 10:44 10:44 WBC 6.9 RBC 5.00 Hgb 17.0 H D Hct 49.6 H MCV 99.2 H MCH 34.0 H MCHC 34.3 RDW 13.7 Plt Count 224 MPV 8.9 Neut % (Auto) 78.3 H Lymph % (Auto) 13.4 L Bland % (Auto) 8.0 Eos % (Auto) 0.0 Baso % (Auto) 0.3 Neut # 5.4 Lymph # 0.9 L Bland # 0.5 Eos # 0.0 Baso # 0.0 PT INR Puncture Site pCO2 pO2 HCO3 ABG pH ABG Total CO2 ABG O2 Saturation ABG Base Excess [place] Test ABG Potassium VBG pH VBG pCO2 VBG HCO3 VBG Total CO2 VBG O2 Sat (Calc) VBG Base Excess VBG Potassium A-a O2 Difference Respiratory Index Glucose Lactate FiO2 Crit Value Called To Crit Value Called By Crit Value Read Back Blood Gas Notified Time Sodium 136 Potassium 5.9 H Chloride 94 L Carbon Dioxide 12 L Anion Gap 36 H BUN 10 Creatinine 0.7 Est GFR ( Amer) > 60 Est GFR (Non-Af Amer) > 60 POC Glucose (mg/dL) 131 H Random Glucose 128 H Calcium 9.1 Iron TIBC % Saturation Ferritin Total Bilirubin 2.5 H Direct Bilirubin AST 1051 H ALT 287 H D Alkaline Phosphatase 127 H D Ammonia Lactate Dehydrogenase Total Protein 8.6 H Albumin 4.6 Globulin 4.0 H Albumin/Globulin Ratio 1.2 Triglycerides Cholesterol LDL Cholesterol Direct HDL Cholesterol Lipase 6496 H Beta HCG, Quant Arterial Blood Potassium Venous Blood Potassium Urine Color Urine Clarity Urine pH Ur Specific [place] Urine Protein Urine Glucose (UA) Urine Ketones Urine Blood Urine Nitrate Urine Bilirubin Urine Urobilinogen Ur Leukocyte Esterase Urine WBC (Auto) Urine RBC (Auto) Ur Squamous Epith Cells Urine Bacteria Urine Opiates Screen Urine Methadone Screen Acetaminophen Ur Barbiturates Screen Ur Phencyclidine Scrn Ur Amphetamines Screen U Benzodiazepines Scrn U Oth Cocaine Metabols U Cannabinoids Screen Alcohol, Quantitative 209 H IgG IgA IgM Hepatitis A IgM Ab Hep Bs Antigen Hep B Core IgM Ab Hepatitis C Antibody HIV 1&2 Antibody Screen Ur L.pneumophila Ag 03/13/17 03/13/17 03/13/17 10:48 10:50 12:35 WBC RBC Hgb Hct MCV MCH MCHC RDW Plt Count MPV Neut % (Auto) Lymph % (Auto) Bland % (Auto) Eos % (Auto) Baso % (Auto) Neut # Lymph # Bland # Eos # Baso # PT INR Puncture Site Rra pCO2 25 L pO2 35 114 H HCO3 16.4 L ABG pH 7.33 L ABG Total CO2 14.0 L ABG O2 Saturation 99.2 H ABG Base Excess -10.9 L [place] Test Pos ABG Potassium 3.2 L VBG pH 7.33 VBG pCO2 36 L VBG HCO3 19.1 VBG Total CO2 20.1 L VBG O2 Sat (Calc) 60.1 VBG Base Excess -6.2 L VBG Potassium 3.2 L A-a O2 Difference 4.0 Respiratory Index 0 Glucose 146 H 112 H Lactate 9.5 H* 6.5 H* FiO2 21.0 Crit Value Called To Jd verde Crit Value Called By Melvin siddiqui tech writer Antelmo sanidad Crit Value Read Back Y Y Blood Gas Notified Time 1123 1240 Sodium 139.0 140.0 Potassium Chloride 99.0 109.0 H Carbon Dioxide Anion Gap BUN Creatinine Est GFR ( Amer) Est GFR (Non-Af Amer) POC Glucose (mg/dL) Random Glucose Calcium Iron TIBC % Saturation Ferritin Total Bilirubin Direct Bilirubin AST ALT Alkaline Phosphatase Ammonia Lactate Dehydrogenase 1749 H Total Protein Albumin Globulin Albumin/Globulin Ratio Triglycerides Cholesterol LDL Cholesterol Direct HDL Cholesterol Lipase Beta HCG, Quant < 2.39 Arterial Blood Potassium 3.2 L Venous Blood Potassium 3.2 L Urine Color Urine Clarity Urine pH Ur Specific [place] Urine Protein Urine Glucose (UA) Urine Ketones Urine Blood Urine Nitrate Urine Bilirubin Urine Urobilinogen Ur Leukocyte Esterase Urine WBC (Auto) Urine RBC (Auto) Ur Squamous Epith Cells Urine Bacteria Urine Opiates Screen Urine Methadone Screen Acetaminophen Ur Barbiturates Screen Ur Phencyclidine Scrn Ur Amphetamines Screen U Benzodiazepines Scrn U Oth Cocaine Metabols U Cannabinoids Screen Alcohol, Quantitative IgG IgA IgM Hepatitis A IgM Ab Hep Bs Antigen Hep B Core IgM Ab Hepatitis C Antibody HIV 1&2 Antibody Screen Ur L.pneumophila Ag 03/13/17 03/13/17 03/13/17 12:38 14:06 14:06 WBC RBC Hgb Hct MCV MCH MCHC RDW Plt Count MPV Neut % (Auto) Lymph % (Auto) Bland % (Auto) Eos % (Auto) Baso % (Auto) Neut # Lymph # Bland # Eos # Baso # PT INR Puncture Site pCO2 pO2 HCO3 ABG pH ABG Total CO2 ABG O2 Saturation ABG Base Excess [place] Test ABG Potassium VBG pH VBG pCO2 VBG HCO3 VBG Total CO2 VBG O2 Sat (Calc) VBG Base Excess VBG Potassium A-a O2 Difference Respiratory Index Glucose Lactate FiO2 Crit Value Called To Crit Value Called By Crit Value Read Back Blood Gas Notified Time Sodium Potassium Chloride Carbon Dioxide Anion Gap BUN Creatinine Est GFR ( Amer) Est GFR (Non-Af Amer) POC Glucose (mg/dL) Random Glucose Calcium Iron TIBC % Saturation Ferritin 1940.0 Total Bilirubin Direct Bilirubin 1.1 H AST ALT Alkaline Phosphatase Ammonia < 9 L Lactate Dehydrogenase Total Protein Albumin Globulin Albumin/Globulin Ratio Triglycerides 1727 H Cholesterol 252 H LDL Cholesterol Direct 96 HDL Cholesterol 88 H Lipase Beta HCG, Quant Arterial Blood Potassium Venous Blood Potassium Urine Color Urine Clarity Urine pH Ur Specific [place] Urine Protein Urine Glucose (UA) Urine Ketones Urine Blood Urine Nitrate Urine Bilirubin Urine Urobilinogen Ur Leukocyte Esterase Urine WBC (Auto) Urine RBC (Auto) Ur Squamous Epith Cells Urine Bacteria Urine Opiates Screen Urine Methadone Screen Acetaminophen Ur Barbiturates Screen Ur Phencyclidine Scrn Ur Amphetamines Screen U Benzodiazepines Scrn U Oth Cocaine Metabols U Cannabinoids Screen Alcohol, Quantitative IgG IgA IgM Hepatitis A IgM Ab Negative Hep Bs Antigen Negative Hep B Core IgM Ab Negative Hepatitis C Antibody Negative HIV 1&2 Antibody Screen Ur L.pneumophila Ag 03/13/17 03/13/17 03/13/17 14:06 14:06 14:06 WBC RBC Hgb Hct MCV MCH MCHC RDW Plt Count MPV Neut % (Auto) Lymph % (Auto) Bland % (Auto) Eos % (Auto) Baso % (Auto) Neut # Lymph # Bland # Eos # Baso # PT 12.7 H INR 1.1 Puncture Site pCO2 pO2 HCO3 ABG pH ABG Total CO2 ABG O2 Saturation ABG Base Excess [place] Test ABG Potassium VBG pH VBG pCO2 VBG HCO3 VBG Total CO2 VBG O2 Sat (Calc) VBG Base Excess VBG Potassium A-a O2 Difference Respiratory Index Glucose Lactate FiO2 Crit Value Called To Crit Value Called By Crit Value Read Back Blood Gas Notified Time Sodium Potassium Chloride Carbon Dioxide Anion Gap BUN Creatinine Est GFR ( Amer) Est GFR (Non-Af Amer) POC Glucose (mg/dL) Random Glucose Calcium Iron TIBC % Saturation Ferritin Total Bilirubin Direct Bilirubin AST ALT Alkaline Phosphatase Ammonia Lactate Dehydrogenase Total Protein Albumin Globulin Albumin/Globulin Ratio Triglycerides Cholesterol LDL Cholesterol Direct HDL Cholesterol Lipase Beta HCG, Quant Arterial Blood Potassium Venous Blood Potassium Urine Color Urine Clarity Urine pH Ur Specific [place] Urine Protein Urine Glucose (UA) Urine Ketones Urine Blood Urine Nitrate Urine Bilirubin Urine Urobilinogen Ur Leukocyte Esterase Urine WBC (Auto) Urine RBC (Auto) Ur Squamous Epith Cells Urine Bacteria Urine Opiates Screen Urine Methadone Screen Acetaminophen < 10.0 L Ur Barbiturates Screen Ur Phencyclidine Scrn Ur Amphetamines Screen U Benzodiazepines Scrn U Oth Cocaine Metabols U Cannabinoids Screen Alcohol, Quantitative IgG IgA IgM Hepatitis A IgM Ab Hep Bs Antigen Hep B Core IgM Ab Hepatitis C Antibody HIV 1&2 Antibody Screen Negative Ur L.pneumophila Ag 03/13/17 03/13/17 03/13/17 14:07 15:33 15:33 WBC RBC Hgb Hct MCV MCH MCHC RDW Plt Count MPV Neut % (Auto) Lymph % (Auto) Bland % (Auto) Eos % (Auto) Baso % (Auto) Neut # Lymph # Bland # Eos # Baso # PT INR Puncture Site pCO2 pO2 HCO3 ABG pH ABG Total CO2 ABG O2 Saturation ABG Base Excess [place] Test ABG Potassium VBG pH VBG pCO2 VBG HCO3 VBG Total CO2 VBG O2 Sat (Calc) VBG Base Excess VBG Potassium A-a O2 Difference Respiratory Index Glucose Lactate FiO2 Crit Value Called To Crit Value Called By Crit Value Read Back Blood Gas Notified Time Sodium 138 Potassium 3.4 L Chloride 103 Carbon Dioxide 10 L* Anion Gap 28 H BUN 7 Creatinine 0.7 Est GFR ( Amer) > 60 Est GFR (Non-Af Amer) > 60 POC Glucose (mg/dL) Random Glucose 107 H Calcium 8.0 L Iron 201 H TIBC 194 L % Saturation 104 H Ferritin Total Bilirubin Direct Bilirubin AST ALT Alkaline Phosphatase Ammonia Lactate Dehydrogenase Total Protein Albumin Globulin Albumin/Globulin Ratio Triglycerides Cholesterol LDL Cholesterol Direct HDL Cholesterol Lipase Beta HCG, Quant Arterial Blood Potassium Venous Blood Potassium Urine Color Urine Clarity Urine pH Ur Specific [place] Urine Protein Urine Glucose (UA) Urine Ketones Urine Blood Urine Nitrate Urine Bilirubin Urine Urobilinogen Ur Leukocyte Esterase Urine WBC (Auto) Urine RBC (Auto) Ur Squamous Epith Cells Urine Bacteria Urine Opiates Screen Urine Methadone Screen Acetaminophen Ur Barbiturates Screen Ur Phencyclidine Scrn Ur Amphetamines Screen U Benzodiazepines Scrn U Oth Cocaine Metabols U Cannabinoids Screen Alcohol, Quantitative IgG 893.6 IgA 202.2 IgM 155.3 Hepatitis A IgM Ab Hep Bs Antigen Hep B Core IgM Ab Hepatitis C Antibody HIV 1&2 Antibody Screen Ur L.pneumophila Ag 03/13/17 03/13/17 03/13/17 16:29 16:29 17:43 WBC RBC Hgb Hct MCV MCH MCHC RDW Plt Count MPV Neut % (Auto) Lymph % (Auto) Bland % (Auto) Eos % (Auto) Baso % (Auto) Neut # Lymph # Bland # Eos # Baso # PT INR Puncture Site pCO2 pO2 HCO3 ABG pH ABG Total CO2 ABG O2 Saturation ABG Base Excess [place] Test ABG Potassium VBG pH VBG pCO2 VBG HCO3 VBG Total CO2 VBG O2 Sat (Calc) VBG Base Excess VBG Potassium A-a O2 Difference Respiratory Index Glucose Lactate FiO2 Crit Value Called To Crit Value Called By Crit Value Read Back Blood Gas Notified Time Sodium Potassium Chloride Carbon Dioxide Anion Gap BUN Creatinine Est GFR ( Amer) Est GFR (Non-Af Amer) POC Glucose (mg/dL) Random Glucose Calcium Iron TIBC % Saturation Ferritin Total Bilirubin Direct Bilirubin AST ALT Alkaline Phosphatase Ammonia Lactate Dehydrogenase Total Protein Albumin Globulin Albumin/Globulin Ratio Triglycerides Cholesterol LDL Cholesterol Direct HDL Cholesterol Lipase Beta HCG, Quant Arterial Blood Potassium Venous Blood Potassium Urine Color Urine Clarity Urine pH Ur Specific [place] Urine Protein Urine Glucose (UA) Urine Ketones Urine Blood Urine Nitrate Urine Bilirubin Urine Urobilinogen Ur Leukocyte Esterase Urine WBC (Auto) Urine RBC (Auto) Ur Squamous Epith Cells Urine Bacteria Urine Opiates Screen Positive Positive Urine Methadone Screen Negative Negative Acetaminophen Ur Barbiturates Screen Negative Negative Ur Phencyclidine Scrn Negative Negative Ur Amphetamines Screen Negative Negative U Benzodiazepines Scrn Negative Negative U Oth Cocaine Metabols Negative Negative U Cannabinoids Screen Negative Negative Alcohol, Quantitative IgG IgA IgM Hepatitis A IgM Ab Hep Bs Antigen Hep B Core IgM Ab Hepatitis C Antibody HIV 1&2 Antibody Screen Ur L.pneumophila Ag Negative 03/13/17 03/13/17 17:46 18:10 WBC RBC Hgb Hct MCV MCH MCHC RDW Plt Count MPV Neut % (Auto) Lymph % (Auto) Bland % (Auto) Eos % (Auto) Baso % (Auto) Neut # Lymph # Bland # Eos # Baso # PT INR Puncture Site pCO2 pO2 HCO3 ABG pH ABG Total CO2 ABG O2 Saturation ABG Base Excess [place] Test ABG Potassium VBG pH VBG pCO2 VBG HCO3 VBG Total CO2 VBG O2 Sat (Calc) VBG Base Excess VBG Potassium A-a O2 Difference Respiratory Index Glucose Lactate FiO2 Crit Value Called To Crit Value Called By Crit Value Read Back Blood Gas Notified Time Sodium Potassium Chloride Carbon Dioxide Anion Gap BUN Creatinine Est GFR ( Amer) Est GFR (Non-Af Amer) POC Glucose (mg/dL) 131 H Random Glucose Calcium Iron TIBC % Saturation Ferritin Total Bilirubin Direct Bilirubin AST ALT Alkaline Phosphatase Ammonia Lactate Dehydrogenase Total Protein Albumin Globulin Albumin/Globulin Ratio Triglycerides Cholesterol LDL Cholesterol Direct HDL Cholesterol Lipase Beta HCG, Quant Arterial Blood Potassium Venous Blood Potassium Urine Color Yellow Urine Clarity Hazy Urine pH 6.0 Ur Specific [place] 1.027 Urine Protein Negative Urine Glucose (UA) Normal Urine Ketones 1+ H Urine Blood 2+ H Urine Nitrate Negative Urine Bilirubin Negative Urine Urobilinogen 2.0 H Ur Leukocyte Esterase Neg Urine WBC (Auto) 2 Urine RBC (Auto) 16 H Ur Squamous Epith Cells 11 H Urine Bacteria Few H Urine Opiates Screen Urine Methadone Screen Acetaminophen Ur Barbiturates Screen Ur Phencyclidine Scrn Ur Amphetamines Screen U Benzodiazepines Scrn U Oth Cocaine Metabols U Cannabinoids Screen Alcohol, Quantitative IgG IgA IgM Hepatitis A IgM Ab Hep Bs Antigen Hep B Core IgM Ab Hepatitis C Antibody HIV 1&2 Antibody Screen Ur L.pneumophila Ag Attending/Attestation - Attestation I have personally seen and examined this patient.: Yes I have fully participated in the care of the patient.: Yes I have reviewed all pertinent clinical information: Yes Notes (Text): 03/13/17 18:34 Patient seen and examined. Case discussed with house staff. Patient admitted to ICU for acute pancreatitis secondary to alcohol abuse and triglyceridemia Fluid resuscitation GI evaluation Started on insulin drip for elevated triglycerides Endocrinology evaluation Monitor intake and output NG tube for decompression Dilaudid for abdominal pain Sodium bicarbonate and follow up electrolytes
[2017-03-13 19:27] LABS: BASO % 0.1 % (0.0-2.0); HEMATOCRIT 45.8 % (34.0-47.0); LYMPH # 0.8 K/uL (1.0-4.3); MEAN CELL VOLUME 99.8 fL (81.0-99.0); MEAN CORPUSCULAR HEMOGLOBIN 33.6 pg (27.0-31.0); MEAN CORPUSCULAR HGB CONC 33.7 g/dL (33.0-37.0); MEAN PLATELET VOLUME 8.5 fL (7.2-11.7); MONO # 0.5 K/uL (0.0-0.8); MONO % 5.3 % (0.0-10.0); NRBC % 0.1 % (0.0-2.0); PLATELET COUNT 165 K/uL (130-400); RED CELL DISTRIBUTION WIDTH 13.4 % (11.5-14.5); WHITE BLOOD COUNT 9.7 K/uL (4.8-10.8)
[2017-03-13 19:36] LABS: CHLORIDE 102 mmol/L (98-107); POTASSIUM 3.6 mmol/L (3.6-5.2); SODIUM 138 mmol/L (132-148)
[2017-03-13 19:38] LABS: AST/SGOT 717 U/L (14-36); BILIRUBIN,TOTAL 2.3 mg/dL (0.2-1.3); CARBON DIOXIDE 17 mmol/L (22-30); GFR AFRICAN-AMERICAN > 60
[2017-03-13 19:39] LABS: ALKALINE PHOSPHATASE 105 U/L (38-126); ALT/SGPT 245 U/L (9-52); BLOOD UREA NITROGEN 7 mg/dL (7-17); CALCIUM 8.1 mg/dl (8.6-10.4); GLUCOSE,RANDOM 97 mg/dL (65-105)
[2017-03-13 19:53] LABS: NEUTROPHIL 88 % (50-75); TOTAL CELLS COUNTED 100
[2017-03-13] MEDS: Insulin Human Regular 100 UNIT in Sodium Chloride 0.9% 99 ML IV SCH (20:00)
--- NOTE | 2017-03-13 20:23 | US ---
EXAM: US Abdomen Complete EXAM DATE/TIME: 03/13/2017 6:00 PM CLINICAL HISTORY: 31 years old, female; Condition or disease; Pancreatic condition; Pancreatitis; Idiopathic; Additional info: Abdominal pain, pancreatitis TECHNIQUE: Real-time ultrasound of the abdomen (complete) with image documentation. COMPARISON: CT abdomen done earlier on the same day, at 12:56 PM. FINDINGS: Limitations: Overall suboptimal visualization, due to bowel gas. The technologist also noted that the exam was suboptimal because of the patient's limited ability to breath-hold. Gallbladder: Within normal limits in appearance, without evidence of gallstones, significant gallbladder wall thickening, or pericholecystic fluid. Reportedly negative sonographic Solomon's sign. Common bile duct: Does not appear abnormally dilated, measuring less than 6 mm in diameter. Liver: Demonstrates diffusely increased parenchymal echogenicity, most compatible with fatty infiltration. . Enlarged, measuring 23 cm in length. Otherwise within normal limits in appearance. Normal flow seen in the main portal vein on color and Doppler imaging. Pancreas: Poorly seen due to gas. Small amount fluid is seen adjacent to the pancreas, compatible with the acute pancreatitis seen on the recent CT. Right kidney: Incompletely seen due to gas. Grossly normal in appearance. Measures 9.5 cm in length. No evidence of hydronephrosis. Left kidney: Incompletely seen due to gas. Grossly normal in appearance. Measures 11 cm in length. No evidence of hydronephrosis. Spleen: Within normal limits in appearance. Measures 9 cm in length. Aorta: Visualized portions of the proximal aorta appear normal in caliber. The mid and distal aorta are obscured by bowel gas. IVC: Visualized portions appear grossly unremarkable. Free fluid: Small amount is identified, abutting the liver. IMPRESSION: Small amount of free fluid. Fluid adjacent to the pancreas, compatible with the pancreatitis seen on the recent CT scan. Otherwise, no evidence of significant acute process. No evidence of gallstones, cholecystitis or biliary ductal dilatation. Enlarged, fatty liver. See above for remaining findings.
[2017-03-13] MEDS: Dextrose 5%/0.9% NS 1,000 ML IV SCH (22:20)
[2017-03-14] MEDS: Lactated Ringer's 1,000 ML IV SCH ×4 (06:00→19:18)
[2017-03-14 06:44] LABS: BASO % 0.3 % (0.0-2.0); EOS % 0.2 % (0.0-4.0); HEMATOCRIT 43.9 % (34.0-47.0); LYMPH # 0.8 K/uL (1.0-4.3); LYMPH % 9.3 % (20.0-40.0); MEAN CELL VOLUME 100.5 fL (81.0-99.0); MEAN CORPUSCULAR HGB CONC 33.8 g/dL (33.0-37.0); MEAN PLATELET VOLUME 8.7 fL (7.2-11.7); MONO # 0.4 K/uL (0.0-0.8); MONO % 4.6 % (0.0-10.0); NRBC % 0.2 % (0.0-2.0); PLATELET COUNT 117 K/uL (130-400); RED CELL DISTRIBUTION WIDTH 13.8 % (11.5-14.5); WHITE BLOOD COUNT 8.5 K/uL (4.8-10.8)
--- NOTE | 2017-03-14 06:48 | CON ---
ENDOCRINOLOGY CONSULTATION DATE: LOCATION: ICU, room 6. HISTORY OF PRESENT ILLNESS: This is a 31-year-old female with sudden onset of upper abdominal pain with supervening nausea, dyspepsia, vomiting, and diarrhea, and admitted here for further evaluation and assessed to have acute pancreatitis, and is being referred now for endocrine evaluation and management. PAST MEDICAL HISTORY: History of hypertension, controlled on medications. FAMILY HISTORY: Positive for hypertension and heart disease. SOCIAL HISTORY: The patient admits to chronic alcoholism with daily consumption of heavy liquor with vodka and beer and also wine as noted. Admits to recent alcoholic intoxication about four to five days prior to admission. The patient lives alone with a supportive family otherwise. No other known substance use. REVIEW OF SYSTEMS: As mentioned above, admits to generalized body weakness with easy fatigability and tiredness and suboptimal energy level. Also admits to episodic bouts of dizziness and lightheadedness. On the day of admission, no chest pains or palpitations, but admits to progressive shortness of breath especially on exertion. Her oral intake is quite variable and suboptimal at this time with supervening nausea, dyspepsia, episodic vomiting episodes and loose watery diarrhea. Also admits to diffuse abdominal pain, localized to the upper abdominal upper quadrants and radiating to the back area with progressively worsening intensity until the time of admission. PHYSICAL EXAMINATION: GENERAL: This is an average built female, in moderate abdominal distress. VITAL SIGNS: Blood pressure 160/90, pulse of 100 beats per minute and regular, temperature 99, respirations 20, height is 5 feet 7 inches, and weight is 160 pounds. HEENT: Head is normocephalic. Eyes, anicteric with pink conjunctivae. Funduscopy is not possible at this time. Ears, nose, and throat otherwise normal. NECK: Supple. Thyroid glands is normal size. No carotid bruits or any cervical adenopathy. CARDIOPULMONARY: Adynamic pericardium. S1 and S2 is rapid and regular. LUNGS: Shows carotid rhonchi. ABDOMEN: Flat and soft with positive direct tenderness, but not no evidence of rebound tenderness. EXTREMITIES: Peripheral pulses are +2 bilaterally. LABORATORY DATA: Initial chemistry showed BUN of 10, sodium 136, potassium 5.9, chloride 94, CO2 12. Glucose is 128, creatinine 0.7, AST 1051, ALT 287, total bilirubin is 2.5, LDH is 1749, total protein is 8.6. Lipase level is 6496. The triglyceride level shows a value of 1727. Cholesterol 2528, HDL 88, LDL of 96. ASSESSMENT AND PLAN: This is a 51-year-old female with acute pancreatitis most likely precipitated by recent alcoholic intoxication on the background of chronic alcoholism, and also we have excluded underlying cholelithiasis as noted thereof. The care of management, we will initiate intensive insulin therapy using an insulin drip infusion to improve the insulin deficiency associated with impairment of lipoprotein, lipase enzyme responsible for breakdown of triglycerides as noted thereof. We will obtain a lipoprotein fractionation to exclude any underlying familial dyslipidemia as noted thereof. We will initiate an insulin drip infusion with fingerstick glucose done every 2 hours as ordered. We will also obtain a hemoglobin A1c to consider prior glycemia control and baseline thyroid function studies will be ordered. If the enzymes improve and the oral intake improves, we will switch her back over to solid food using a low fat low cholesterol diet as ordered. We will obtain serial chemistries and supplement accordingly as needed. We will follow. Asiya Sung MD
[2017-03-14 06:58] LABS: CHLORIDE 102 mmol/L (98-107); POTASSIUM 3.8 mmol/L (3.6-5.2); SODIUM 139 mmol/L (132-148)
[2017-03-14 06:59] LABS: GFR AFRICAN-AMERICAN > 60
[2017-03-14 07:00] LABS: ALKALINE PHOSPHATASE 90 U/L (38-126); ALT/SGPT 211 U/L (9-52); AST/SGOT 639 U/L (14-36); BILIRUBIN,TOTAL 3.1 mg/dL (0.2-1.3); BLOOD UREA NITROGEN 6 mg/dL (7-17); CARBON DIOXIDE 22 mmol/L (22-30); CHOLESTEROL 206 mg/dL (0-199); GLUCOSE,RANDOM 108 mg/dL (65-105); PHOSPHOROUS 1.7 mg/dL (2.5-4.5); TOTAL PROTEIN 6.6 g/dL (6.3-8.3)
[2017-03-14 07:01] LABS: CALCIUM 8.2 mg/dl (8.6-10.4); MAGNESIUM 1.5 mg/dL (1.6-2.3)
[2017-03-14 07:31] LABS: THYROID STIMULATING HORMONE 3.81 mIU/L (0.46-4.68)
[2017-03-14] MEDS: Dextrose 5%/0.9% NS 1,000 ML IV SCH ×2 (07:36→17:33)
[2017-03-14] MEDS ORDERED: POLYETHYLENE GLYCOL 3350 17 GM/Dose PACKET PO PRN (08:05)
--- NOTE | 2017-03-14 08:45 | CP.PCM.PN ---
<Reji Marquez - Last Filed: 03/14/17 08:45> Subjective - Date & Time of Evaluation Date of Evaluation: 03/14/17 Time of Evaluation: 07:00 - Subjective Subjective: PGY4 GI Follow-up Pt seen and examined bedside No complaints Abd pain still present but slightly improving still NPO Denies any BM ROS: 10 point ROS conducted, neg other than above Objective - Vital Signs/Intake and Output Vital Signs (last 24 hours): Temp Pulse Resp BP Pulse Ox 98.4 F 129 H 17 136/105 H 97 03/14/17 04:00 03/14/17 07:01 03/14/17 07:01 03/14/17 07:01 03/14/17 07:01 Intake and Output: 03/14/17 03/14/17 06:59 18:59 Intake Total 2575 202 Output Total 300 Balance 2275 202 - Medications Medications: Current Medications Famotidine (Pepcid) 20 mg IVP Q12 [facility]IKA Last Admin: 03/13/17 21:10 Dose: 20 mg Hydromorphone HCl (Dilaudid) 1 mg IVP Q4H PRN PRN Reason: Pain, severe (8-10) Last Admin: 03/14/17 07:32 Dose: 1 mg Insulin Human Regular 100 unit (/ Sodium Chloride) 100 mls @ 2 mls/hr IV .Q24H MONIKA Last Admin: 03/13/17 20:00 Dose: 2 mls/hr Lactated Ringer's (Lactated Ringer's) 1,000 mls @ 100 mls/hr IV .Q10H MONIKA Last Admin: 03/14/17 06:00 Dose: 100 mls/hr Dextrose/Sodium Chloride (Dextrose 5%/0.9% Ns 1000 Ml) 1,000 mls @ 100 mls/hr IV .Q10H [facility]IKA Last Admin: 03/14/17 07:36 Dose: 100 mls/hr Lorazepam (Ativan) 1 mg IVP Q4H PRN PRN Reason: Symptoms of alcohol withdrawl Polyethylene Glycol (Miralax) 17 gm PO DAILY PRN PRN Reason: Constipation - Labs Labs: 03/14/17 06:32 03/14/17 06:32 PT 12.7 SECONDS (9.7-12.2) H 03/13/17 14:06 INR 1.1 03/13/17 14:06 - Constitutional Appears: Toxic, In Acute Distress - Head Exam Head Exam: ATRAUMATIC, NORMOCEPHALIC - Eye Exam Eye Exam: Normal appearance - ENT Exam ENT Exam: Mucous Membranes Dry - Respiratory Exam Respiratory Exam: Clear to Ausculation Bilateral, NORMAL BREATHING PATTERN. absent: Rales, Rhonchi, Wheezes - Cardiovascular Exam Cardiovascular Exam: REGULAR RHYTHM, +S1, +S2 - GI/Abdominal Exam GI & Abdominal Exam: Soft, Tenderness, Normal Bowel Sounds Additional comments: epigastric area - Extremities Exam Extremities Exam: absent: Joint Swelling, Pedal Edema - Neurological Exam Neurological Exam: Alert, Awake, Oriented x3 - Psychiatric Exam Psychiatric exam: Normal Affect, Normal Mood - Skin Skin Exam: Dry, Intact, Normal Color, Warm Assessment and Plan - Assessment and Plan (Free Text) Assessment: 31 year old female with history of recent URI presenting with abdominal pain. Active treatment of acute moderate pancreatitis and transaminitis. Etiology likely 2/2 hypertrigly vs EtOH; r/o autoimmune, gallstone unlikely based on Abd U/S Plan: >multifactorial- alcohol, hypertriglyceridemia >continue aggressive IVFs- 200-250cc/hr >advance to clear liquid diet >continue insulin therapy, Gemfibrozil >pending APAP, UDS >negative Hepatitis panel >pending autoimmune workup in setting of acute on chronic LFTs (2014) >Abdominal U/S reveals pancreatitis and fatty liver, no clear cbd stones >recent U/S 03/05- no gallstones, normal CBD, hepatomegaly, steatosis >CT A/P -pancreatitis, free fluid in pelvis >alcohol withdrawal protocol >counselled on alcohol cessation >close monitoring of clinical status for signs of decompensation >will follow D/w Dr. Okeefe <Favian Okeefe - Last Filed: 03/14/17 17:24> Objective - Vital Signs/Intake and Output Vital Signs (last 24 hours): Temp Pulse Resp BP Pulse Ox 98.3 F 129 H 28 H 139/93 H 100 03/14/17 16:00 03/14/17 16:05 03/14/17 16:05 03/14/17 16:05 03/14/17 16:05 Intake and Output: 03/14/17 03/14/17 06:59 18:59 Intake Total 2575 2582.5 Output Total 300 250 Balance 2275 2332.5 - Medications Medications: Current Medications Amlodipine Besylate (Norvasc) 5 mg PO DAILY [facility] Last Admin: 03/14/17 10:37 Dose: 5 mg Famotidine (Pepcid) 20 mg IVP Q12 [facility] Last Admin: 03/14/17 09:12 Dose: 20 mg Gabapentin (Neurontin) 100 mg PO TID [facility] Last Admin: 03/14/17 13:58 Dose: 100 mg Heparin Sodium (Porcine) (Heparin) 5,000 units SC Q8 [facility] Last Admin: 03/14/17 13:59 Dose: 5,000 units Hydromorphone HCl (Dilaudid) 1 mg IVP Q4H PRN PRN Reason: Pain, severe (8-10) Last Admin: 03/14/17 11:41 Dose: 1 mg Insulin Human Regular 100 unit (/ Sodium Chloride) 100 mls @ 2 mls/hr IV .Q24H [facility] Last Admin: 03/13/17 20:00 Dose: 2 mls/hr Lactated Ringer's (Lactated Ringer's) 1,000 mls @ 100 mls/hr IV .Q10H [facility] Last Admin: 03/14/17 15:49 Dose: 100 mls/hr Dextrose/Sodium Chloride (Dextrose 5%/0.9% Ns 1000 Ml) 1,000 mls @ 100 mls/hr IV .Q10H [facility] Last Admin: 03/14/17 07:36 Dose: 100 mls/hr Magnesium Sulfate/Dextrose (Magnesium Sulfate 1 Gm/100 Ml D5w) 1 gm in 100 mls @ 200 mls/hr IVPB ONCE ONE Stop: 03/14/17 17:28 Lorazepam (Ativan) 1 mg IVP Q4H PRN PRN Reason: Symptoms of alcohol withdrawl Polyethylene Glycol (Miralax) 17 gm PO DAILY PRN PRN Reason: Constipation Last Admin: 03/14/17 09:20 Dose: 17 gm Trazodone HCl (Desyrel) 50 mg PO HS [facility] - Labs Labs: 03/14/17 15:34 03/14/17 15:34 PT 12.7 SECONDS (9.7-12.2) H 03/13/17 14:06 INR 1.1 03/13/17 14:06 Attending/Attestation - Attestation I have personally seen and examined this patient.: Yes I have fully participated in the care of the patient.: Yes I have reviewed all pertinent clinical information, including history, physical exam and plan: Yes Notes (Text): 03/14/17 17:20 I have seen and examined patient with GI fellow. She remains in critical care unit, complains of ongoing epigastric abdominal pain radiating to back. She denies nausea, vomiting, diarrhea, fever/chills. She is thirsty and asking for diet to be advanced. Review of vitals from today shows elevated BP and tachycardia. Acute pancreatitis ETOH abuse, hypertriglyceridemia - Clear liquid diet as tolerated - Continue with IVF hydration, pain control, supportive care - LFTs trending down, continue to monitor - awaiting autoimmune panel - Continue with lipid management, insulin therapy as per endocrine team - Will closely monitor patient clinical course
[2017-03-14 09:22] LABS: BASOPHIL 1 % (0-2); NEUTROPHIL 82 % (50-75); NUCLEATED RED BLOOD CELL 1 % (0-0); TOTAL CELLS COUNTED 100
[2017-03-14] MEDS ORDERED: Magnesium Sulfate 1 gm in D5W 1 GM/100 ML BAG IVPB ONE ×2 (10:15→16:59)
--- NOTE | 2017-03-14 10:24 | CP.PCM.PN ---
Subjective - Date & Time of Evaluation Date of Evaluation: 03/14/17 Time of Evaluation: 10:25 - Subjective Subjective: Medical Attending Note: Patient seen and examined at bedside. Patient seen with sisterLuz at bedside. Patient is quite anxious, reports mild headache, denies chest pain, denies palpitations, reports abdominal pain, reports nausea, denies vomitting, has not had bowel movement, denies dysuria, denies hematuria. Per discussion with sister, there is a strong family hx of pancreatitis including patient's mother, two sisters including sister at bedside, her other sister from pancreatitis, and one brother. This is the patient's first hospitalization for pancreatitis. Patient reports alcohol use with friends 3 days ago. Patient permits me to interview in front of sister. Patient is quite anxious. Per sister at bedside, patient was on of the first members to find out 3 years ago, when her brother was murdered and has always been anxious ever since. Patient reports history of dyslipidemia, but reports she was never told to be on medication for it. Patient comes from extensive family about ten family members, advised patient with sister at bedside to create list in terms of who she wants her medication information shared with. Objective - Vital Signs/Intake and Output Vital Signs (last 24 hours): Temp Pulse Resp BP Pulse Ox 98.2 F 125 H 23 141/112 H 100 03/14/17 08:00 03/14/17 10:00 03/14/17 10:00 03/14/17 10:00 03/14/17 10:00 Intake and Output: 03/14/17 03/14/17 06:59 18:59 Intake Total 2575 404 Output Total 300 200 Balance 2275 204 - Medications Medications: Current Medications Famotidine (Pepcid) 20 mg IVP Q12 MONIKA Last Admin: 03/14/17 09:12 Dose: 20 mg Heparin Sodium (Porcine) (Heparin) 5,000 units SC Q8 MONIKA Hydromorphone HCl (Dilaudid) 1 mg IVP Q4H PRN PRN Reason: Pain, severe (8-10) Last Admin: 03/14/17 07:32 Dose: 1 mg Insulin Human Regular 100 unit (/ Sodium Chloride) 100 mls @ 2 mls/hr IV .Q24H [facility] Last Admin: 03/13/17 20:00 Dose: 2 mls/hr Lactated Ringer's (Lactated Ringer's) 1,000 mls @ 100 mls/hr IV .Q10H MONIKA Last Admin: 03/14/17 10:08 Dose: Not Given Dextrose/Sodium Chloride (Dextrose 5%/0.9% Ns 1000 Ml) 1,000 mls @ 100 mls/hr IV .Q10H MONIKA Last Admin: 03/14/17 07:36 Dose: 100 mls/hr Magnesium Sulfate/Dextrose (Magnesium Sulfate 1 Gm/100 Ml D5w) 1 gm in 100 mls @ 200 mls/hr IVPB ONCE ONE Stop: 03/14/17 10:44 Last Admin: 03/14/17 10:21 Dose: 200 mls/hr Potassium Phosphate 15 mmole/ (Dextrose) 255 mls @ 42.5 mls/hr IVPB ONCE ONE Stop: 03/14/17 16:29 Lorazepam (Ativan) 1 mg IVP Q4H PRN PRN Reason: Symptoms of alcohol withdrawl Polyethylene Glycol (Miralax) 17 gm PO DAILY PRN PRN Reason: Constipation Last Admin: 03/14/17 09:20 Dose: 17 gm - Labs Labs: 03/14/17 06:32 03/14/17 06:32 PT 12.7 SECONDS (9.7-12.2) H 03/13/17 14:06 INR 1.1 03/13/17 14:06 - Constitutional Appears: In Acute Distress, Agitated - Head Exam Head Exam: NORMAL INSPECTION - Eye Exam Eye Exam: EOMI - ENT Exam ENT Exam: Mucous Membranes Moist - Respiratory Exam Respiratory Exam: Clear to Ausculation Bilateral - Cardiovascular Exam Cardiovascular Exam: Tachycardia, +S1, +S2 - GI/Abdominal Exam GI & Abdominal Exam: Soft Additional comments: +guarding, tender to palpation, distended - Extremities Exam Extremities Exam: Normal Capillary Refill Additional comments: no edema, no cyanosis, no clubbing b/l lower extremities - Neurological Exam Neurological Exam: Alert, Awake, Oriented x3 - Psychiatric Exam Psychiatric exam: Anxious - Skin Skin Exam: Dry, Normal Color, Warm Assessment and Plan - Assessment and Plan (Free Text) Assessment: 1) Acute Pancreatitis Transaminitis Lactic acidosis/ Metabolic Acidosis * Patient seen, examined and case discussed with ICU, accepted to ICU; management per ICU * GI (Dr. Okeefe) on the case-->help appreciated * General surgery (Dr. Snyder) on the case-->help appreciated * NPO-->liquid diet * Patient given 3 fluid boluses in the ED< patient started on LR 250cc/hr--> changed D5NS * Lactate: 9.5-->6.5 * Lipase: 6496; AST/ALT: 1051/287; Lactate [id number] * T, LDL: 252, HDL: 88 * Unable to trend because it was quite elevated * Alphonso's Criteria: 2 (AST>250, LDH>350) * Elevated alcohol on admission * Hepatitis: negative * HIV ordered * Tylenol level: Low * Abdominal US (03/05/17): Enlarged liver measuring up to 20.6cm in length with diffuse increased echogenicity suggestive for fatty infiltration * Chest CT/Abdomen/Pelvis ( 03/13/17): Extensive peripancreatic inflammatory stranding and fluid which tracks inferiorly as well as pancreatic edema. Constellation of findings consistent with acute pancreatitis. Correlate clinically including amylase and lipase. Hepatomegaly. Severe diffuse hypoattenuation of the liver compatible with hepatic steatosis. 2.0 x 4.2 cm more focal hypodensity within the inferior right hepatic lobe near the portal confluence, possibly more focal fatty infiltration. Contrast within the gallbladder presumably due to vicarious excretion. Small to moderate pelvic free fluid. * UDS: negative (opioid; patient is on dilaudid in hospital) * Smooth muscle antibody, anti-mitochondrial antibody ordered 2) Hypertrigylceridemia * T, LDL: 252, HDL: 88 * unable to trend triglycerides; which are quite elevated * Patient currently not on any medication as outpatient * Endocrinology Dr. Sung-->help apppreciated * Patient started on Insulin drip and accuchecks Q1 3) Hypertension * Given fluid boluses in the ED, started on LR 250cc/hr-->D5NS * Start Norvasc 5mg PO daily 4) Prior history of URI * CT Chest obtained 5) Anxiety, PTSD * Psych consult (Dr. Deshpande) help appreciated * Ativan 1mg IV Q4 HR PRN anxiety * Gabapentin 100mg PO TID * Trazodone 50mg PO qHS 6) Low Magnesium * replete 7) Thrombocytopenia * Monitor platelets * Patient is on heparin subq8h * Note: patient has pancreatitis 8) Prophylaxis: * DVT: SCDs; Heparin 5000 units subq8H * GI: Pepcid 20mg IVP Q12H
[2017-03-14] MEDS ORDERED: Potassium Phosphate 15 MMOLE in Dextrose 5% In Water 250 ML IVPB ONE (10:30)
[2017-03-14 11:00] LABS: H INFLUENZAE B NOT REQUIRED (NEGATIVE); N MENINGITIS ACY/W135 NOT REQUIRED (NEGATIVE); N MENINGITIS B/ECOLI K1 NOT REQUIRED (NEGATIVE)
--- NOTE | 2017-03-14 12:07 | PCM.PSYCH ---
Initial Psychiatric Evaluation - Initial Psychiatric Evaluation Type of Admission: Voluntary Legal Status: Capacity Chief Complaint (in patient's own words): "Very tired" History of Present Illness and Precipitating Events: The patient is seen, chart reviewed and case discussed. Consultation was requested because of patient's anxiety and alcohol use. 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 The patient is here for pancreatitis which runs in the family she states. However, her nurses likely to be induced by her binge drinking. The patient claims she has been drinking since age 22 but the last 3 years it escalated because she lost her brother to murder and then her sister who was sick. Recently she was drinking "lots of" wine and liquor with her friends and sisters. She doesn't know the exact quantity. She denies using drugs or cigarettes. Her older sister was there and contacted with pt 's consent. She said that the pt was upset about a recent break-up, but the pt denied that and said she had broken up the relationship, not him. She describes minimal depressive sxs but anxiety and even panic attacks sometimes. She doesn't want to use meds but agree to take some while here ( gabapentin for anxiety/alcohol) and traz. for insomnia. She is on prn atian for wdw which were not observed past psyh hx: Denies Medical; Pancreatitis, HTN Family psych hx: Denies Current Medications: Active Medications Generic Name Dose Route Start Last Admin Trade Name Freq PRN Reason Stop Dose Admin Amlodipine Besylate 5 mg 03/14/17 10:30 03/14/17 10:37 Norvasc PO 5 mg DAILY MONIKA Administration Famotidine 20 mg 03/13/17 22:00 03/14/17 09:12 Pepcid IVP 20 mg Q12 MONIKA Administration Heparin Sodium (Porcine) 5,000 units 03/14/17 14:00 Heparin SC Q8 MONIKA Hydromorphone HCl 1 mg 03/13/17 14:29 03/14/17 11:41 Dilaudid IVP 1 mg Q4H PRN Administration Pain, severe (8-10) Insulin Human Regular 100 unit 100 mls @ 2 mls/hr 03/13/17 20:00 03/13/17 20: 00 / Sodium Chloride IV 2 mls/hr .Q24H MONIKA Administration Lactated Ringer's 1,000 mls @ 100 mls/hr 03/13/17 22:12 03/14/17 10:08 Lactated Ringer's IV Not Given .Q10H MONIKA Dextrose/Sodium Chloride 1,000 mls @ 100 mls/hr 03/13/17 22:15 03/14/17 07:36 Dextrose 5%/0.9% Ns 1000 Ml IV 100 mls/hr .Q10H MONIKA Administration Potassium Phosphate 15 mmole/ 255 mls @ 42.5 mls/hr 03/14/17 10:30 03/14/17 10:51 Dextrose IVPB 03/14/17 16:29 42.5 mls/hr ONCE ONE Administration Lorazepam 1 mg 03/13/17 19:14 Ativan IVP Q4H PRN Symptoms of alcohol withdrawl Polyethylene Glycol 17 gm 03/14/17 08:05 03/14/17 09:20 Miralax PO 17 gm DAILY PRN Administration Constipation Past Psychiatric History - Past Psychiatric History Previous Treatment History: None Pertinent Medical Hx (Current Medical&Sleep Prob, Allergies): Allergies Allergy/AdvReac Type Severity Reaction Status Date / Time No Known Allergies Allergy Verified 03/13/17 10:23 Amoxicillin/Clavulanate [Augmentin 875 MG-125 MG] 1 tab PO BID #14 tab 03/05/17 Ondansetron ODT [Zofran ODT] 1 odt PO BID PRN #6 odt 03/05/17 MedroxyPROGESTERone [Depo-Provera] 150 mg IM 03/13/17 Review of Systems - Neurological Neurological: Tremor, Weakness - Psychiatric Psychiatric: Abnormal Sleep Pattern, Anxiety, Change in Appetite, Depression, Difficulty Concentrating, Irritability. absent: Hallucinations, Homicidal Ideation, Hopelessness, Paranoia, Suicidal Ideation Mental Status Examination - Personal Presentation Personal Presentation: Looks older than stated age - Affect Affect: Constricted - Motor Activity Motor Activity: Calm - Reliability in Providing Information Reliability in Providing Information: Good - Speech Speech: Organized - Mood Mood: Depressed, Anxious - Formal Thought Process Formal Thought Process: No Impairment - Cognitive Functions Orientation: Person, Place, Situation, Time Sensorium: Drowsy Attention/Concentration: Attentive Estimate of Intelligence: Average Judgement: Intact, as evidence by: Insight regarding need for hospitalization Memory: Recent intact, as evidence by: Ability to recall events of the day, Remote intact, as evidenced by: Abilit to recall sig. life events - Risk Risk: Withdrawal, Diminished functioning - Strength & Assets Inventory Strength & Assets Inventory: Cooperative - Limitations Limitations: Living alone DSM 5 DX - DSM 5 DSM 5 Diagnosis: Alcohol dependence - severe Depressive d/o - unspecified Generalized anxiety d/o - Recommended/Plan of Treatment Treatment Recommendations and Plan of Treatment: Start gabapentin for anxiety Start trazodone fro insomnia Pt is refusing to stay on any antidepressant. - jingle writer will follow Individual therapy Psychoeducation and support Refer to outpatient program Teach healthy lifestyle methods, i.e. diet, exercise, meditation Smoking cessation if indicated 32 min
--- NOTE | 2017-03-14 13:30 | CP.PCM.CON ---
History of Present Illness - History of Present Illness History of Present Illness: General Surgery Dr. Snyder 31 y/o F w/ PMHx of HTN and HLD presented to the ED on 03/13/17 c/o upper abd pain that radiated to her back. Pain described as constant, crampy and /. Pt admits to drinking a large amount of EtOH a few days before the pain started while at a Pt reports pain intermittently gets worse, and is only somewhat alleviated with pain medication. Currently, pt c/o of abd pain, N/V, weakness, SOB, hot flashes, lightheadedness, blurry vision, back pain, dysuria, and decreased appetite. Patient denies F/C, CP, palpitations, hematemesis, hematochezia, C/D. PMHx: HTN, HLD, IDDM Meds: reviewed in chart NKDA PSHx: D&C FHx: grandfather had cancer SHx: denies tobacco, drug use; drinks socially Review of Systems - Review of Systems All systems: reviewed and no additional remarkable complaints except (see HPI) Past Patient History - Infectious Disease Hx of Infectious Diseases: None - Past Social History Smoking Status: Never Smoked - CARDIAC Hx Hypertension: Yes (noncompliant with meds) - PULMONARY Hx Respiratory Disorders: No - NEUROLOGICAL Hx Neurological Disorder: No - HEENT Hx HEENT Problems: No - RENAL Hx Chronic Kidney Disease: No - ENDOCRINE/METABOLIC Hx Endocrine Disorders: No - HEMATOLOGICAL/ONCOLOGICAL Hx Blood Disorders: No - INTEGUMENTARY Hx Dermatological Problems: No - MUSCULOSKELETAL/RHEUMATOLOGICAL Hx Musculoskeletal Disorders: No - GASTROINTESTINAL Hx Gastritis: Yes - GENITOURINARY/GYNECOLOGICAL Hx Genitourinary Disorders: No - PSYCHIATRIC Hx Substance Use: No - SURGICAL HISTORY Hx Surgeries: No - ANESTHESIA Hx Anesthesia: No Meds Allergies/Adverse Reactions: Allergies Allergy/AdvReac Type Severity Reaction Status Date / Time No Known Allergies Allergy Verified 03/13/17 10:23 - Medications Medications: Current Medications Amlodipine Besylate (Norvasc) [address] [facility] Last Admin: 03/14/17 10:37 Dose: 5 mg Famotidine (Pepcid) [address] [facility] Last Admin: 03/14/17 09:12 Dose: 20 mg Gabapentin (Neurontin) [address] [facility] Heparin Sodium (Porcine) (Heparin) 5,[address] [facility] Hydromorphone HCl (Dilaudid) 1 mg IVP Q4H PRN PRN Reason: Pain, severe (8-10) Last Admin: 03/14/17 11:41 Dose: 1 mg Insulin Human Regular 100 unit (/ Sodium Chloride) 100 mls @ 2 mls/hr IV .Q24H [facility] Last Admin: 03/13/17 20:00 Dose: 2 mls/hr Lactated Ringer's (Lactated Ringer's) 1,000 mls @ 100 mls/hr IV .Q10H [facility] Last Admin: 03/14/17 10:08 Dose: Not Given Dextrose/Sodium Chloride (Dextrose 5%/0.9% Ns 1000 Ml) 1,000 mls @ 100 mls/hr IV .Q10H [facility] Last Admin: 03/14/17 07:36 Dose: 100 mls/hr Potassium Phosphate 15 mmole/ (Dextrose) 255 mls @ 42.5 mls/hr IVPB ONCE ONE Stop: 03/14/17 16:29 Last Admin: 03/14/17 10:51 Dose: 42.5 mls/hr Lorazepam (Ativan) 1 mg IVP Q4H PRN PRN Reason: Symptoms of alcohol withdrawl Polyethylene Glycol (Miralax) 17 gm PO DAILY PRN PRN Reason: Constipation Last Admin: 03/14/17 09:20 Dose: 17 gm Trazodone HCl (Desyrel) [address] [facility] Physical Exam - Constitutional Appears: Non-toxic, No Acute Distress - Head Exam Head Exam: NORMAL INSPECTION - Eye Exam Eye Exam: Normal appearance - ENT Exam ENT Exam: Mucous Membranes Moist - Neck Exam Neck exam: Positive for: Normal Inspection - Respiratory Exam Respiratory Exam: NORMAL BREATHING PATTERN. absent: Accessory Muscle Use, Respiratory Distress - Cardiovascular Exam Cardiovascular Exam: Tachycardia, REGULAR RHYTHM. absent: Bradycardia - GI/Abdominal Exam GI & Abdominal Exam: Distended, Guarding (voluntary), Soft, Tenderness (TTP epigastric) - Extremities Exam Extremities exam: Positive for: normal inspection - Neurological Exam Neurological exam: Alert, Oriented x3 - Psychiatric Exam Psychiatric exam: Normal Affect, Normal Mood - Skin Skin Exam: Dry, Intact, Normal Color, Warm Results - Vital Signs Recent Vital Signs: Last Vital Signs Temp 98.4 F 03/14/17 12:00 Pulse 124 H 03/14/17 13:00 Resp 15 03/14/17 13:00 BP 135/99 H 03/14/17 13:00 Pulse Ox 99 03/14/17 13:00 - Labs Result Diagrams: 03/14/17 15:34 03/14/17 15:34 Labs: Laboratory Results - last 24 hr 03/13/17 03/13/17 03/13/17 14:06 14:06 14:06 WBC RBC Hgb Hct MCV MCH MCHC RDW Plt Count MPV Neut % (Auto) Lymph % (Auto) Walker % (Auto) Eos % (Auto) Baso % (Auto) Neut # Lymph # Walker # Eos # Baso # Neutrophils % (Manual) Band Neutrophils % Lymphocytes % (Manual) Monocytes % (Manual) Basophils % (Manual) Nucleated RBC % Platelet Estimate RBC Morphology PT INR Sodium Potassium Chloride Carbon Dioxide Anion Gap BUN Creatinine Est GFR ( Amer) Est GFR (Non-Af Amer) POC Glucose (mg/dL) Random Glucose Calcium Phosphorus Magnesium Iron TIBC % Saturation Ferritin 1940.0 Total Bilirubin Direct Bilirubin 1.1 H AST ALT Alkaline Phosphatase Total Protein Albumin Globulin Albumin/Globulin Ratio Triglycerides 1727 H Cholesterol 252 H LDL Cholesterol Direct 96 HDL Cholesterol 88 H Lipase TSH 3rd Generation Urine Color Urine Clarity Urine pH Ur Specific [place] Urine Protein Urine Glucose (UA) Urine Ketones Urine Blood Urine Nitrate Urine Bilirubin Urine Urobilinogen Ur Leukocyte Esterase Urine WBC (Auto) Urine RBC (Auto) Ur Squamous Epith Cells Urine Bacteria Urine Opiates Screen Urine Methadone Screen Acetaminophen Ur Barbiturates Screen Ur Phencyclidine Scrn Ur Amphetamines Screen U Benzodiazepines Scrn U Oth Cocaine Metabols U Cannabinoids Screen IgG IgA IgM Hepatitis A IgM Ab Negative Hep Bs Antigen Negative Hep B Core IgM Ab Negative Hepatitis C Antibody Negative HIV 1&2 Antibody Screen Negative H.influenzae Type B Ag Ur L.pneumophila Ag Mycoplasma pneumon IgM N.meningitidis ACY/W135 N.meningi B/E.coli K1 Ag Group B Strep Antigen S. pneumoniae Antigen 03/13/17 03/13/17 03/13/17 14:06 14:06 14:07 WBC RBC Hgb Hct MCV MCH MCHC RDW Plt Count MPV Neut % (Auto) Lymph % (Auto) Walker % (Auto) Eos % (Auto) Baso % (Auto) Neut # Lymph # Walker # Eos # Baso # Neutrophils % (Manual) Band Neutrophils % Lymphocytes % (Manual) Monocytes % (Manual) Basophils % (Manual) Nucleated RBC % Platelet Estimate RBC Morphology PT 12.7 H INR 1.1 Sodium Potassium Chloride Carbon Dioxide Anion Gap BUN Creatinine Est GFR ( Amer) Est GFR (Non-Af Amer) POC Glucose (mg/dL) Random Glucose Calcium Phosphorus Magnesium Iron 201 H TIBC 194 L % Saturation 104 H Ferritin Total Bilirubin Direct Bilirubin AST ALT Alkaline Phosphatase Total Protein Albumin Globulin Albumin/Globulin Ratio Triglycerides Cholesterol LDL Cholesterol Direct HDL Cholesterol Lipase TSH 3rd Generation Urine Color Urine Clarity Urine pH Ur Specific [place] Urine Protein Urine Glucose (UA) Urine Ketones Urine Blood Urine Nitrate Urine Bilirubin Urine Urobilinogen Ur Leukocyte Esterase Urine WBC (Auto) Urine RBC (Auto) Ur Squamous Epith Cells Urine Bacteria Urine Opiates Screen Urine Methadone Screen Acetaminophen < 10.0 L Ur Barbiturates Screen Ur Phencyclidine Scrn Ur Amphetamines Screen U Benzodiazepines Scrn U Oth Cocaine Metabols U Cannabinoids Screen IgG IgA IgM Hepatitis A IgM Ab Hep Bs Antigen Hep B Core IgM Ab Hepatitis C Antibody HIV 1&2 Antibody Screen H.influenzae Type B Ag Ur L.pneumophila Ag Mycoplasma pneumon IgM N.meningitidis ACY/W135 N.meningi B/E.coli K1 Ag Group B Strep Antigen S. pneumoniae Antigen 03/13/17 03/13/17 03/13/17 15:33 15:33 16:00 WBC RBC Hgb Hct MCV MCH MCHC RDW Plt Count MPV Neut % (Auto) Lymph % (Auto) Walker % (Auto) Eos % (Auto) Baso % (Auto) Neut # Lymph # Walker # Eos # Baso # Neutrophils % (Manual) Band Neutrophils % Lymphocytes % (Manual) Monocytes % (Manual) Basophils % (Manual) Nucleated RBC % Platelet Estimate RBC Morphology PT INR Sodium 138 Potassium 3.4 L Chloride 103 Carbon Dioxide 10 L* Anion Gap 28 H BUN 7 Creatinine 0.7 Est GFR ( Amer) > 60 Est GFR (Non-Af Amer) > 60 POC Glucose (mg/dL) Random Glucose 107 H Calcium 8.0 L Phosphorus Magnesium Iron TIBC % Saturation Ferritin Total Bilirubin Direct Bilirubin AST ALT Alkaline Phosphatase Total Protein Albumin Globulin Albumin/Globulin Ratio Triglycerides Cholesterol LDL Cholesterol Direct HDL Cholesterol Lipase TSH 3rd Generation Urine Color Urine Clarity Urine pH Ur Specific [place] Urine Protein Urine Glucose (UA) Urine Ketones Urine Blood Urine Nitrate Urine Bilirubin Urine Urobilinogen Ur Leukocyte Esterase Urine WBC (Auto) Urine RBC (Auto) Ur Squamous Epith Cells Urine Bacteria Urine Opiates Screen Urine Methadone Screen Acetaminophen Ur Barbiturates Screen Ur Phencyclidine Scrn Ur Amphetamines Screen U Benzodiazepines Scrn U Oth Cocaine Metabols U Cannabinoids Screen IgG 893.6 IgA 202.2 IgM 155.3 Hepatitis A IgM Ab Hep Bs Antigen Hep B Core IgM Ab Hepatitis C Antibody HIV 1&2 Antibody Screen H.influenzae Type B Ag Not required Ur L.pneumophila Ag Mycoplasma pneumon IgM N.meningitidis ACY/W135 Not required N.meningi B/E.coli K1 Ag Not required Group B Strep Antigen Not required S. pneumoniae Antigen Negative 03/13/17 03/13/17 03/13/17 16:29 16:29 17:43 WBC RBC Hgb Hct MCV MCH MCHC RDW Plt Count MPV Neut % (Auto) Lymph % (Auto) Walker % (Auto) Eos % (Auto) Baso % (Auto) Neut # Lymph # Walker # Eos # Baso # Neutrophils % (Manual) Band Neutrophils % Lymphocytes % (Manual) Monocytes % (Manual) Basophils % (Manual) Nucleated RBC % Platelet Estimate RBC Morphology PT INR Sodium Potassium Chloride Carbon Dioxide Anion Gap BUN Creatinine Est GFR ( Amer) Est GFR (Non-Af Amer) POC Glucose (mg/dL) Random Glucose Calcium Phosphorus Magnesium Iron TIBC % Saturation Ferritin Total Bilirubin Direct Bilirubin AST ALT Alkaline Phosphatase Total Protein Albumin Globulin Albumin/Globulin Ratio Triglycerides Cholesterol LDL Cholesterol Direct HDL Cholesterol Lipase TSH 3rd Generation Urine Color Urine Clarity Urine pH Ur Specific [place] Urine Protein Urine Glucose (UA) Urine Ketones Urine Blood Urine Nitrate Urine Bilirubin Urine Urobilinogen Ur Leukocyte Esterase Urine WBC (Auto) Urine RBC (Auto) Ur Squamous Epith Cells Urine Bacteria Urine Opiates Screen Positive Positive Urine Methadone Screen Negative Negative Acetaminophen Ur Barbiturates Screen Negative Negative Ur Phencyclidine Scrn Negative Negative Ur Amphetamines Screen Negative Negative U Benzodiazepines Scrn Negative Negative U Oth Cocaine Metabols Negative Negative U Cannabinoids Screen Negative Negative IgG IgA IgM Hepatitis A IgM Ab Hep Bs Antigen Hep B Core IgM Ab Hepatitis C Antibody HIV 1&2 Antibody Screen H.influenzae Type B Ag Ur L.pneumophila Ag Negative Mycoplasma pneumon IgM Negative N.meningitidis ACY/W135 N.meningi B/E.coli K1 Ag Group B Strep Antigen S. pneumoniae Antigen 03/13/17 03/13/17 03/13/17 17:46 18:10 18:57 WBC RBC Hgb Hct MCV MCH MCHC RDW Plt Count MPV Neut % (Auto) Lymph % (Auto) Walker % (Auto) Eos % (Auto) Baso % (Auto) Neut # Lymph # Walker # Eos # Baso # Neutrophils % (Manual) Band Neutrophils % Lymphocytes % (Manual) Monocytes % (Manual) Basophils % (Manual) Nucleated RBC % Platelet Estimate RBC Morphology PT INR Sodium Potassium Chloride Carbon Dioxide Anion Gap BUN Creatinine Est GFR ( Amer) Est GFR (Non-Af Amer) POC Glucose (mg/dL) 131 H 106 Random Glucose Calcium Phosphorus Magnesium Iron TIBC % Saturation Ferritin Total Bilirubin Direct Bilirubin AST ALT Alkaline Phosphatase Total Protein Albumin Globulin Albumin/Globulin Ratio Triglycerides Cholesterol LDL Cholesterol Direct HDL Cholesterol Lipase TSH 3rd Generation Urine Color Yellow Urine Clarity Hazy Urine pH 6.0 Ur Specific [place] 1.027 Urine Protein Negative Urine Glucose (UA) Normal Urine Ketones 1+ H Urine Blood 2+ H Urine Nitrate Negative Urine Bilirubin Negative Urine Urobilinogen 2.0 H Ur Leukocyte Esterase Neg Urine WBC (Auto) 2 Urine RBC (Auto) 16 H Ur Squamous Epith Cells 11 H Urine Bacteria Few H Urine Opiates Screen Urine Methadone Screen Acetaminophen Ur Barbiturates Screen Ur Phencyclidine Scrn Ur Amphetamines Screen U Benzodiazepines Scrn U Oth Cocaine Metabols U Cannabinoids Screen IgG IgA IgM Hepatitis A IgM Ab Hep Bs Antigen Hep B Core IgM Ab Hepatitis C Antibody HIV 1&2 Antibody Screen H.influenzae Type B Ag Ur L.pneumophila Ag Mycoplasma pneumon IgM N.meningitidis ACY/W135 N.meningi B/E.coli K1 Ag Group B Strep Antigen S. pneumoniae Antigen 03/13/17 03/13/17 03/13/17 19:17 19:17 20:09 WBC 9.7 RBC 4.59 Hgb 15.4 Hct 45.8 MCV 99.8 H MCH 33.6 H MCHC 33.7 RDW 13.4 Plt Count 165 MPV 8.5 Neut % (Auto) 86.6 H Lymph % (Auto) 8.0 L Walker % (Auto) 5.3 Eos % (Auto) 0.0 Baso % (Auto) 0.1 Neut # 8.4 H Lymph # 0.8 L Walker # 0.5 Eos # 0.0 Baso # 0.0 Neutrophils % (Manual) 88 H Band Neutrophils % 1 Lymphocytes % (Manual) 7 L Monocytes % (Manual) 4 Basophils % (Manual) Nucleated RBC % Platelet Estimate Normal RBC Morphology Normal PT INR Sodium 138 Potassium 3.6 Chloride 102 Carbon Dioxide 17 L Anion Gap 23 H BUN 7 Creatinine 0.6 L Est GFR ( Amer) > 60 Est GFR (Non-Af Amer) > 60 POC Glucose (mg/dL) 103 Random Glucose 97 Calcium 8.1 L Phosphorus Magnesium Iron TIBC % Saturation Ferritin Total Bilirubin 2.3 H Direct Bilirubin AST 717 H D ALT 245 H Alkaline Phosphatase 105 Total Protein 7.0 Albumin 3.6 Globulin 3.5 Albumin/Globulin Ratio 1.0 Triglycerides Cholesterol LDL Cholesterol Direct HDL Cholesterol Lipase TSH 3rd Generation Urine Color Urine Clarity Urine pH Ur Specific [place] Urine Protein Urine Glucose (UA) Urine Ketones Urine Blood Urine Nitrate Urine Bilirubin Urine Urobilinogen Ur Leukocyte Esterase Urine WBC (Auto) Urine RBC (Auto) Ur Squamous Epith Cells Urine Bacteria Urine Opiates Screen Urine Methadone Screen Acetaminophen Ur Barbiturates Screen Ur Phencyclidine Scrn Ur Amphetamines Screen U Benzodiazepines Scrn U Oth Cocaine Metabols U Cannabinoids Screen IgG IgA IgM Hepatitis A IgM Ab Hep Bs Antigen Hep B Core IgM Ab Hepatitis C Antibody HIV 1&2 Antibody Screen H.influenzae Type B Ag Ur L.pneumophila Ag Mycoplasma pneumon IgM N.meningitidis ACY/W135 N.meningi B/E.coli K1 Ag Group B Strep Antigen S. pneumoniae Antigen 03/13/17 03/13/17 03/14/17 22:09 23:58 01:56 WBC RBC Hgb Hct MCV MCH MCHC RDW Plt Count MPV Neut % (Auto) Lymph % (Auto) Walker % (Auto) Eos % (Auto) Baso % (Auto) Neut # Lymph # Walker # Eos # Baso # Neutrophils % (Manual) Band Neutrophils % Lymphocytes % (Manual) Monocytes % (Manual) Basophils % (Manual) Nucleated RBC % Platelet Estimate RBC Morphology PT INR Sodium Potassium Chloride Carbon Dioxide Anion Gap BUN Creatinine Est GFR ( Amer) Est GFR (Non-Af Amer) POC Glucose (mg/dL) 98 118 H 121 H Random Glucose Calcium Phosphorus Magnesium Iron TIBC % Saturation Ferritin Total Bilirubin Direct Bilirubin AST ALT Alkaline Phosphatase Total Protein Albumin Globulin Albumin/Globulin Ratio Triglycerides Cholesterol LDL Cholesterol Direct HDL Cholesterol Lipase TSH 3rd Generation Urine Color Urine Clarity Urine pH Ur Specific [place] Urine Protein Urine Glucose (UA) Urine Ketones Urine Blood Urine Nitrate Urine Bilirubin Urine Urobilinogen Ur Leukocyte Esterase Urine WBC (Auto) Urine RBC (Auto) Ur Squamous Epith Cells Urine Bacteria Urine Opiates Screen Urine Methadone Screen Acetaminophen Ur Barbiturates Screen Ur Phencyclidine Scrn Ur Amphetamines Screen U Benzodiazepines Scrn U Oth Cocaine Metabols U Cannabinoids Screen IgG IgA IgM Hepatitis A IgM Ab Hep Bs Antigen Hep B Core IgM Ab Hepatitis C Antibody HIV 1&2 Antibody Screen H.influenzae Type B Ag Ur L.pneumophila Ag Mycoplasma pneumon IgM N.meningitidis ACY/W135 N.meningi B/E.coli K1 Ag Group B Strep Antigen S. pneumoniae Antigen 03/14/17 03/14/17 03/14/17 03:58 06:00 06:32 WBC 8.5 RBC 4.37 Hgb 14.9 Hct 43.9 MCV 100.5 H MCH 34.0 H MCHC 33.8 RDW 13.8 Plt Count 117 L D MPV 8.7 Neut % (Auto) 85.6 H Lymph % (Auto) 9.3 L Walker % (Auto) 4.6 Eos % (Auto) 0.2 Baso % (Auto) 0.3 Neut # 7.3 H Lymph # 0.8 L Walker # 0.4 Eos # 0.0 Baso # 0.0 Neutrophils % (Manual) 82 H Band Neutrophils % 7 H Lymphocytes % (Manual) 6 L Monocytes % (Manual) 4 Basophils % (Manual) 1 Nucleated RBC % 1 H Platelet Estimate Slightly decreased L RBC Morphology Normal PT INR Sodium Potassium Chloride Carbon Dioxide Anion Gap BUN Creatinine Est GFR ( Amer) Est GFR (Non-Af Amer) POC Glucose (mg/dL) 107 126 H Random Glucose Calcium Phosphorus Magnesium Iron TIBC % Saturation Ferritin Total Bilirubin Direct Bilirubin AST ALT Alkaline Phosphatase Total Protein Albumin Globulin Albumin/Globulin Ratio Triglycerides Cholesterol LDL Cholesterol Direct HDL Cholesterol Lipase TSH 3rd Generation Urine Color Urine Clarity Urine pH Ur Specific [place] Urine Protein Urine Glucose (UA) Urine Ketones Urine Blood Urine Nitrate Urine Bilirubin Urine Urobilinogen Ur Leukocyte Esterase Urine WBC (Auto) Urine RBC (Auto) Ur Squamous Epith Cells Urine Bacteria Urine Opiates Screen Urine Methadone Screen Acetaminophen Ur Barbiturates Screen Ur Phencyclidine Scrn Ur Amphetamines Screen U Benzodiazepines Scrn U Oth Cocaine Metabols U Cannabinoids Screen IgG IgA IgM Hepatitis A IgM Ab Hep Bs Antigen Hep B Core IgM Ab Hepatitis C Antibody HIV 1&2 Antibody Screen H.influenzae Type B Ag Ur L.pneumophila Ag Mycoplasma pneumon IgM N.meningitidis ACY/W135 N.meningi B/E.coli K1 Ag Group B Strep Antigen S. pneumoniae Antigen 03/14/17 03/14/17 03/14/17 06:32 08:12 10:05 WBC RBC Hgb Hct MCV MCH MCHC RDW Plt Count MPV Neut % (Auto) Lymph % (Auto) Walker % (Auto) Eos % (Auto) Baso % (Auto) Neut # Lymph # Walker # Eos # Baso # Neutrophils % (Manual) Band Neutrophils % Lymphocytes % (Manual) Monocytes % (Manual) Basophils % (Manual) Nucleated RBC % Platelet Estimate RBC Morphology PT INR Sodium 139 Potassium 3.8 Chloride 102 Carbon Dioxide 22 Anion Gap 20 BUN 6 L Creatinine 0.7 Est GFR ( Amer) > 60 Est GFR (Non-Af Amer) > 60 POC Glucose (mg/dL) 105 146 H Random Glucose 108 H Calcium 8.2 L Phosphorus 1.7 L Magnesium 1.5 L Iron TIBC % Saturation Ferritin Total Bilirubin 3.1 H Direct Bilirubin AST 639 H ALT 211 H Alkaline Phosphatase 90 Total Protein 6.6 Albumin 3.2 L Globulin 3.3 Albumin/Globulin Ratio 1.0 Triglycerides Cholesterol 206 H LDL Cholesterol Direct 82 HDL Cholesterol 51 Lipase 3227 H TSH 3rd Generation 3.81 Urine Color Urine Clarity Urine pH Ur Specific [place] Urine Protein Urine Glucose (UA) Urine Ketones Urine Blood Urine Nitrate Urine Bilirubin Urine Urobilinogen Ur Leukocyte Esterase Urine WBC (Auto) Urine RBC (Auto) Ur Squamous Epith Cells Urine Bacteria Urine Opiates Screen Urine Methadone Screen Acetaminophen Ur Barbiturates Screen Ur Phencyclidine Scrn Ur Amphetamines Screen U Benzodiazepines Scrn U Oth Cocaine Metabols U Cannabinoids Screen IgG IgA IgM Hepatitis A IgM Ab Hep Bs Antigen Hep B Core IgM Ab Hepatitis C Antibody HIV 1&2 Antibody Screen H.influenzae Type B Ag Ur L.pneumophila Ag Mycoplasma pneumon IgM N.meningitidis ACY/W135 N.meningi B/E.coli K1 Ag Group B Strep Antigen S. pneumoniae Antigen 03/14/17 12:17 WBC RBC Hgb Hct MCV MCH MCHC RDW Plt Count MPV Neut % (Auto) Lymph % (Auto) Walker % (Auto) Eos % (Auto) Baso % (Auto) Neut # Lymph # Walker # Eos # Baso # Neutrophils % (Manual) Band Neutrophils % Lymphocytes % (Manual) Monocytes % (Manual) Basophils % (Manual) Nucleated RBC % Platelet Estimate RBC Morphology PT INR Sodium Potassium Chloride Carbon Dioxide Anion Gap BUN Creatinine Est GFR ( Amer) Est GFR (Non-Af Amer) POC Glucose (mg/dL) 141 H Random Glucose Calcium Phosphorus Magnesium Iron TIBC % Saturation Ferritin Total Bilirubin Direct Bilirubin AST ALT Alkaline Phosphatase Total Protein Albumin Globulin Albumin/Globulin Ratio Triglycerides Cholesterol LDL Cholesterol Direct HDL Cholesterol Lipase TSH 3rd Generation Urine Color Urine Clarity Urine pH Ur Specific [place] Urine Protein Urine Glucose (UA) Urine Ketones Urine Blood Urine Nitrate Urine Bilirubin Urine Urobilinogen Ur Leukocyte Esterase Urine WBC (Auto) Urine RBC (Auto) Ur Squamous Epith Cells Urine Bacteria Urine Opiates Screen Urine Methadone Screen Acetaminophen Ur Barbiturates Screen Ur Phencyclidine Scrn Ur Amphetamines Screen U Benzodiazepines Scrn U Oth Cocaine Metabols U Cannabinoids Screen IgG IgA IgM Hepatitis A IgM Ab Hep Bs Antigen Hep B Core IgM Ab Hepatitis C Antibody HIV 1&2 Antibody Screen H.influenzae Type B Ag Ur L.pneumophila Ag Mycoplasma pneumon IgM N.meningitidis ACY/W135 N.meningi B/E.coli K1 Ag Group B Strep Antigen S. pneumoniae Antigen - Imaging and Cardiology CT scan - abdomen Status: Image reviewed by me, Report reviewed by me Assessment & Plan - Assessment and Plan (Free Text) Assessment: 31 y/o F w/ pancreatitis likely 2/2 EtOH ingestion - cont aggressive IVF resuscitation - cont pain management - trend LFTs, T. Bili - currently trending down - monitor vitals - f/u GI recs - cont medical management per primary/ICU - encourage OOB to chair/IS use Pt discussed w/ Dr. Claudio Howell DO PGY2
--- NOTE | 2017-03-14 14:45 | CP.CCUPN ---
<Dlaton Thomas E - Last Filed: 03/14/17 14:59> CCU Subjective - Physician Review Subjective (Free Text): Patient was seen and examined at bedside. Patient reports that she feels much better and her symptoms are improving. Patient admits to one episode of vomit and improved mid-upper abdominal pain but currently denies nausea, fever, chills , chest pain, SOB, palpitations, dizziness. Patient was more tolerable to abdominal palpation today. CCU Objective - Vital Signs / Intake & Output Vital Signs (Last 4 hours): Vital Signs Temp Pulse Resp BP Pulse Ox 03/14/17 13:00 124 H 15 135/99 H 99 03/14/17 12:00 98.4 F 125 H 20 142/103 H 99 03/14/17 11:13 124 H 14 146/105 H 99 03/14/17 11:01 133 H 13 Intake and Output (Last 8hrs): Intake & Output 03/13/17 03/14/17 03/14/17 22:59 06:59 14:59 Intake Total 2008 1616 1751.5 Output Total 200 200 200 Balance 1809 1416 1551.5 Intake: Intake, IV Amount 2008 1616 1701.5 Left Antecubital 1900 800 700 Left Antecubital Y-site 100 800 700 Left Distal Port 9 16 14 Antecubital Right Wrist 287.5 Oral 0 50 Output: Urine 200 200 200 Urine, Voided 200 200 200 Other: # Voids Urine, Voided 1 1 1 # Bowel Movements 0 0 - Physical Exam Head: Positive for: Atraumatic, Normocephalic Extroacular Muscles: Positive for: EOMI Respiratory/Chest: Positive for: Clear to Auscultation. Negative for: Respiratory Distress, Accessory Muscle Use Cardiovascular: Positive for: Regular Rate and Rhythm Abdomen: Positive for: Tenderness, Distention, Other (Moderately diminished bowel sounds ). Negative for: Peritoneal Signs Upper Extremity: Positive for: Normal Inspection Lower Extremity: Positive for: Normal Inspection Neurological: Positive for: GCS=15, Speech Normal Skin: Positive for: Warm, Normal Color Psychiatric: Positive for: Alert, Oriented x 3 - Medications Active Medications: Active Medications Generic Name Dose Route Start Last Admin Trade Name Freq PRN Reason Stop Dose Admin Amlodipine Besylate 5 mg 03/14/17 10:30 03/14/17 10:37 Norvasc PO 5 mg DAILY MONIKA Administration Famotidine 20 mg 03/13/17 22:00 03/14/17 09:12 Pepcid IVP 20 mg Q12 MONIKA Administration Gabapentin 100 mg 03/14/17 14:00 03/14/17 13:58 Neurontin PO 100 mg TID MONIKA Administration Heparin Sodium (Porcine) 5,000 units 03/14/17 14:00 03/14/17 13:59 Heparin SC 5,000 units Q8 MONIKA Administration Hydromorphone HCl 1 mg 03/13/17 14:29 03/14/17 11:41 Dilaudid IVP 1 mg Q4H PRN Administration Pain, severe (8-10) Insulin Human Regular 100 unit 100 mls @ 2 mls/hr 03/13/17 20:00 03/13/17 20: 00 / Sodium Chloride IV 2 mls/hr .Q24H MONIKA Administration Lactated Ringer's 1,000 mls @ 100 mls/hr 03/13/17 22:12 03/14/17 10:08 Lactated Ringer's IV Not Given .Q10H MONIKA Dextrose/Sodium Chloride 1,000 mls @ 100 mls/hr 03/13/17 22:15 03/14/17 07:36 Dextrose 5%/0.9% Ns 1000 Ml IV 100 mls/hr .Q10H MONIKA Administration Potassium Phosphate 15 mmole/ 255 mls @ 42.5 mls/hr 03/14/17 10:30 03/14/17 10:51 Dextrose IVPB 03/14/17 16:29 42.5 mls/hr ONCE ONE Administration Lorazepam 1 mg 03/13/17 19:14 Ativan IVP Q4H PRN Symptoms of alcohol withdrawl Polyethylene Glycol 17 gm 03/14/17 08:05 03/14/17 09:20 Miralax PO 17 gm DAILY PRN Administration Constipation Trazodone HCl 50 mg 03/14/17 22:00 Desyrel PO HS [facility] - Patient Studies Lab Studies: Lab Studies 03/14/17 03/14/17 03/14/17 Range/Units 14:35 12:17 10:05 WBC (4.8-10.8) K/uL RBC (3.80-5.20) Mil/uL Hgb (11.0-16.0) g/dL Hct (34.0-47.0) % MCV (81.0-99.0) fL MCH (27.0-31.0) pg MCHC (33.0-37.0) g/dL RDW (11.5-14.5) % Plt Count (130-400) K/uL MPV (7.2-11.7) fL Neut % (Auto) (50.0-75.0) % Lymph % (Auto) (20.0-40.0) % [place] % (Auto) (0.0-10.0) % Eos % (Auto) (0.0-4.0) % Baso % (Auto) (0.0-2.0) % Neut # (1.8-7.0) K/uL Lymph # (1.0-4.3) K/uL [place] # (0.0-0.8) K/uL Eos # (0.0-0.7) K/uL Baso # (0.0-0.2) K/uL Neutrophils % (Manual) (50-75) % Band Neutrophils % (0-2) % Lymphocytes % (Manual) (20-40) % Monocytes % (Manual) (0-10) % Basophils % (Manual) (0-2) % Nucleated RBC % (0-0) % Platelet Estimate (NORMAL) RBC Morphology Sodium (132-148) mmol/L Potassium (3.6-5.2) mmol/L Chloride (98-107) mmol/L Carbon Dioxide (22-30) mmol/L Anion Gap (10-20) BUN (7-17) mg/dL Creatinine (0.7-1.2) mg/dL Est GFR ( Amer) Est GFR (Non-Af Amer) POC Glucose (mg/dL) 147 H 141 H 146 H (65-110) mg/dL Random Glucose (65-105) mg/dL Calcium (8.6-10.4) mg/dl Phosphorus (2.5-4.5) mg/dL Magnesium (1.6-2.3) mg/dL Iron (37-170) ug/dL TIBC (250-450) ug/dL % Saturation (20-55) Ferritin ng/mL Total Bilirubin (0.2-1.3) mg/dL AST (14-36) U/L ALT (9-52) U/L Alkaline Phosphatase (38-126) U/L Total Protein (6.3-8.3) g/dL Albumin (3.5-5.0) g/dL Globulin (2.2-3.9) gm/dL Albumin/Globulin Ratio (1.0-2.1) Triglycerides (0-149) mg/dL Cholesterol (0-199) mg/dL LDL Cholesterol Direct (0-129) mg/dL HDL Cholesterol (30-70) mg/dL Lipase (23-300) U/L TSH 3rd Generation (0.46-4.68) mIU/L Urine Color (YELLOW) Urine Clarity (Clear) Urine pH (5.0-8.0) Ur Specific [place] (1.003-1.030) Urine Protein (NEGATIVE) mg/dL Urine Glucose (UA) (Normal) mg/dL Urine Ketones (NEGATIVE) mg/dL Urine Blood (NEGATIVE) Urine Nitrate (NEGATIVE) Urine Bilirubin (NEGATIVE) Urine Urobilinogen (0.2-1.0) mg/dL Ur Leukocyte Esterase (Negative) Diane/uL Urine WBC (Auto) (0-5) /hpf Urine RBC (Auto) (0-3) /hpf Ur Squamous Epith Cells (0-5) /hpf Urine Bacteria (<OCC) Urine Opiates Screen (NEGATIVE) Urine Methadone Screen (NEGATIVE) Ur Barbiturates Screen (NEGATIVE) Ur Phencyclidine Scrn (NEGATIVE) Ur Amphetamines Screen (NEGATIVE) U Benzodiazepines Scrn (NEGATIVE) U Oth Cocaine Metabols (NEGATIVE) U Cannabinoids Screen (NEGATIVE) IgG (700.0-1600.0) mg/dL IgA (70.0-400.0) mg/dL IgM (40.0-230.0) mg/dL Hepatitis A IgM Ab (NEGATIVE) Hep Bs Antigen (NEGATIVE) Hep B Core IgM Ab (NEGATIVE) Hepatitis C Antibody (NEGATIVE) HIV 1&2 Antibody Screen (NEGATIVE) H.influenzae Type B Ag (NEGATIVE) Ur L.pneumophila Ag (NEGATIVE) Mycoplasma pneumon IgM (NEGATIVE) N.meningitidis ACY/W135 (NEGATIVE) N.meningi B/E.coli K1 Ag (NEGATIVE) Group B Strep Antigen (NEGATIVE) S. pneumoniae Antigen (NEGATIVE) 10/12/17 10/12/17 10/12/17 Range/Units 08:12 06:32 06:32 WBC 8.5 (4.8-10.8) K/uL RBC 4.37 (3.80-5.20) Mil/uL Hgb 14.9 (11.0-16.0) g/dL Hct 43.9 (34.0-47.0) % MCV 100.5 H (81.0-99.0) fL MCH 34.0 H (27.0-31.0) pg MCHC 33.8 (33.0-37.0) g/dL RDW 13.8 (11.5-14.5) % Plt Count 117 L D (130-400) K/uL MPV 8.7 (7.2-11.7) fL Neut % (Auto) 85.6 H (50.0-75.0) % Lymph % (Auto) 9.3 L (20.0-40.0) % [place] % (Auto) 4.6 (0.0-10.0) % Eos % (Auto) 0.2 (0.0-4.0) % Baso % (Auto) 0.3 (0.0-2.0) % Neut # 7.3 H (1.8-7.0) K/uL Lymph # 0.8 L (1.0-4.3) K/uL [place] # 0.4 (0.0-0.8) K/uL Eos # 0.0 (0.0-0.7) K/uL Baso # 0.0 (0.0-0.2) K/uL Neutrophils % (Manual) 82 H (50-75) % Band Neutrophils % 7 H (0-2) % Lymphocytes % (Manual) 6 L (20-40) % Monocytes % (Manual) 4 (0-10) % Basophils % (Manual) 1 (0-2) % Nucleated RBC % 1 H (0-0) % Platelet Estimate Slightly decreased L (NORMAL) RBC Morphology Normal Sodium 139 (132-148) mmol/L Potassium 3.8 (3.6-5.2) mmol/L Chloride 102 (98-107) mmol/L Carbon Dioxide 22 (22-30) mmol/L Anion Gap 20 (10-20) BUN 6 L (7-17) mg/dL Creatinine 0.7 (0.7-1.2) mg/dL Est GFR ( Amer) > 60 Est GFR (Non-Af Amer) > 60 POC Glucose (mg/dL) 105 (65-110) mg/dL Random Glucose 108 H (65-105) mg/dL Calcium 8.2 L (8.6-10.4) mg/dl Phosphorus 1.7 L (2.5-4.5) mg/dL Magnesium 1.5 L (1.6-2.3) mg/dL Iron (37-170) ug/dL TIBC (250-450) ug/dL % Saturation (20-55) Ferritin ng/mL Total Bilirubin 3.1 H (0.2-1.3) mg/dL AST 639 H (14-36) U/L ALT 211 H (9-52) U/L Alkaline Phosphatase 90 (38-126) U/L Total Protein 6.6 (6.3-8.3) g/dL Albumin 3.2 L (3.5-5.0) g/dL Globulin 3.3 (2.2-3.9) gm/dL Albumin/Globulin Ratio 1.0 (1.0-2.1) Triglycerides (0-149) mg/dL Cholesterol 206 H (0-199) mg/dL LDL Cholesterol Direct 82 (0-129) mg/dL HDL Cholesterol 51 (30-70) mg/dL Lipase 3227 H (23-300) U/L TSH 3rd Generation 3.81 (0.46-4.68) mIU/L Urine Color (YELLOW) Urine Clarity (Clear) Urine pH (5.0-8.0) Ur Specific [place] (1.003-1.030) Urine Protein (NEGATIVE) mg/dL Urine Glucose (UA) (Normal) mg/dL Urine Ketones (NEGATIVE) mg/dL Urine Blood (NEGATIVE) Urine Nitrate (NEGATIVE) Urine Bilirubin (NEGATIVE) Urine Urobilinogen (0.2-1.0) mg/dL Ur Leukocyte Esterase (Negative) Diane/uL Urine WBC (Auto) (0-5) /hpf Urine RBC (Auto) (0-3) /hpf Ur Squamous Epith Cells (0-5) /hpf Urine Bacteria (<OCC) Urine Opiates Screen (NEGATIVE) Urine Methadone Screen (NEGATIVE) Ur Barbiturates Screen (NEGATIVE) Ur Phencyclidine Scrn (NEGATIVE) Ur Amphetamines Screen (NEGATIVE) U Benzodiazepines Scrn (NEGATIVE) U Oth Cocaine Metabols (NEGATIVE) U Cannabinoids Screen (NEGATIVE) IgG (700.0-1600.0) mg/dL IgA (70.0-400.0) mg/dL IgM (40.0-230.0) mg/dL Hepatitis A IgM Ab (NEGATIVE) Hep Bs Antigen (NEGATIVE) Hep B Core IgM Ab (NEGATIVE) Hepatitis C Antibody (NEGATIVE) HIV 1&2 Antibody Screen (NEGATIVE) H.influenzae Type B Ag (NEGATIVE) Ur L.pneumophila Ag (NEGATIVE) Mycoplasma pneumon IgM (NEGATIVE) N.meningitidis ACY/W135 (NEGATIVE) N.meningi B/E.coli K1 Ag (NEGATIVE) Group B Strep Antigen (NEGATIVE) S. pneumoniae Antigen (NEGATIVE) 03/14/17 03/14/17 03/14/17 Range/Units 06:00 03:58 01:56 WBC (4.8-10.8) K/uL RBC (3.80-5.20) Mil/uL Hgb (11.0-16.0) g/dL Hct (34.0-47.0) % MCV (81.0-99.0) fL MCH (27.0-31.0) pg MCHC (33.0-37.0) g/dL RDW (11.5-14.5) % Plt Count (130-400) K/uL MPV (7.2-11.7) fL Neut % (Auto) (50.0-75.0) % Lymph % (Auto) (20.0-40.0) % [place] % (Auto) (0.0-10.0) % Eos % (Auto) (0.0-4.0) % Baso % (Auto) (0.0-2.0) % Neut # (1.8-7.0) K/uL Lymph # (1.0-4.3) K/uL [place] # (0.0-0.8) K/uL Eos # (0.0-0.7) K/uL Baso # (0.0-0.2) K/uL Neutrophils % (Manual) (50-75) % Band Neutrophils % (0-2) % Lymphocytes % (Manual) (20-40) % Monocytes % (Manual) (0-10) % Basophils % (Manual) (0-2) % Nucleated RBC % (0-0) % Platelet Estimate (NORMAL) RBC Morphology Sodium (132-148) mmol/L Potassium (3.6-5.2) mmol/L Chloride (98-107) mmol/L Carbon Dioxide (22-30) mmol/L Anion Gap (10-20) BUN (7-17) mg/dL Creatinine (0.7-1.2) mg/dL Est GFR ( Amer) Est GFR (Non-Af Amer) POC Glucose (mg/dL) 126 H 107 121 H (65-110) mg/dL Random Glucose (65-105) mg/dL Calcium (8.6-10.4) mg/dl Phosphorus (2.5-4.5) mg/dL Magnesium (1.6-2.3) mg/dL Iron (37-170) ug/dL TIBC (250-450) ug/dL % Saturation (20-55) Ferritin ng/mL Total Bilirubin (0.2-1.3) mg/dL AST (14-36) U/L ALT (9-52) U/L Alkaline Phosphatase (38-126) U/L Total Protein (6.3-8.3) g/dL Albumin (3.5-5.0) g/dL Globulin (2.2-3.9) gm/dL Albumin/Globulin Ratio (1.0-2.1) Triglycerides (0-149) mg/dL Cholesterol (0-199) mg/dL LDL Cholesterol Direct (0-129) mg/dL HDL Cholesterol (30-70) mg/dL Lipase (23-300) U/L TSH 3rd Generation (0.46-4.68) mIU/L Urine Color (YELLOW) Urine Clarity (Clear) Urine pH (5.0-8.0) Ur Specific [place] (1.003-1.030) Urine Protein (NEGATIVE) mg/dL Urine Glucose (UA) (Normal) mg/dL Urine Ketones (NEGATIVE) mg/dL Urine Blood (NEGATIVE) Urine Nitrate (NEGATIVE) Urine Bilirubin (NEGATIVE) Urine Urobilinogen (0.2-1.0) mg/dL Ur Leukocyte Esterase (Negative) Diane/uL Urine WBC (Auto) (0-5) /hpf Urine RBC (Auto) (0-3) /hpf Ur Squamous Epith Cells (0-5) /hpf Urine Bacteria (<OCC) Urine Opiates Screen (NEGATIVE) Urine Methadone Screen (NEGATIVE) Ur Barbiturates Screen (NEGATIVE) Ur Phencyclidine Scrn (NEGATIVE) Ur Amphetamines Screen (NEGATIVE) U Benzodiazepines Scrn (NEGATIVE) U Oth Cocaine Metabols (NEGATIVE) U Cannabinoids Screen (NEGATIVE) IgG (700.0-1600.0) mg/dL IgA (70.0-400.0) mg/dL IgM (40.0-230.0) mg/dL Hepatitis A IgM Ab (NEGATIVE) Hep Bs Antigen (NEGATIVE) Hep B Core IgM Ab (NEGATIVE) Hepatitis C Antibody (NEGATIVE) HIV 1&2 Antibody Screen (NEGATIVE) H.influenzae Type B Ag (NEGATIVE) Ur L.pneumophila Ag (NEGATIVE) Mycoplasma pneumon IgM (NEGATIVE) N.meningitidis ACY/W135 (NEGATIVE) N.meningi B/E.coli K1 Ag (NEGATIVE) Group B Strep Antigen (NEGATIVE) S. pneumoniae Antigen (NEGATIVE) 03/13/17 03/13/17 03/13/17 Range/Units 23:58 22:09 20:09 WBC (4.8-10.8) K/uL RBC (3.80-5.20) Mil/uL Hgb (11.0-16.0) g/dL Hct (34.0-47.0) % MCV (81.0-99.0) fL MCH (27.0-31.0) pg MCHC (33.0-37.0) g/dL RDW (11.5-14.5) % Plt Count (130-400) K/uL MPV (7.2-11.7) fL Neut % (Auto) (50.0-75.0) % Lymph % (Auto) (20.0-40.0) % [place] % (Auto) (0.0-10.0) % Eos % (Auto) (0.0-4.0) % Baso % (Auto) (0.0-2.0) % Neut # (1.8-7.0) K/uL Lymph # (1.0-4.3) K/uL [place] # (0.0-0.8) K/uL Eos # (0.0-0.7) K/uL Baso # (0.0-0.2) K/uL Neutrophils % (Manual) (50-75) % Band Neutrophils % (0-2) % Lymphocytes % (Manual) (20-40) % Monocytes % (Manual) (0-10) % Basophils % (Manual) (0-2) % Nucleated RBC % (0-0) % Platelet Estimate (NORMAL) RBC Morphology Sodium (132-148) mmol/L Potassium (3.6-5.2) mmol/L Chloride (98-107) mmol/L Carbon Dioxide (22-30) mmol/L Anion Gap (10-20) BUN (7-17) mg/dL Creatinine (0.7-1.2) mg/dL Est GFR ( Amer) Est GFR (Non-Af Amer) POC Glucose (mg/dL) 118 H 98 103 (65-110) mg/dL Random Glucose (65-105) mg/dL Calcium (8.6-10.4) mg/dl Phosphorus (2.5-4.5) mg/dL Magnesium (1.6-2.3) mg/dL Iron (37-170) ug/dL TIBC (250-450) ug/dL % Saturation (20-55) Ferritin ng/mL Total Bilirubin (0.2-1.3) mg/dL AST (14-36) U/L ALT (9-52) U/L Alkaline Phosphatase (38-126) U/L Total Protein (6.3-8.3) g/dL Albumin (3.5-5.0) g/dL Globulin (2.2-3.9) gm/dL Albumin/Globulin Ratio (1.0-2.1) Triglycerides (0-149) mg/dL Cholesterol (0-199) mg/dL LDL Cholesterol Direct (0-129) mg/dL HDL Cholesterol (30-70) mg/dL Lipase (23-300) U/L TSH 3rd Generation (0.46-4.68) mIU/L Urine Color (YELLOW) Urine Clarity (Clear) Urine pH (5.0-8.0) Ur Specific [place] (1.003-1.030) Urine Protein (NEGATIVE) mg/dL Urine Glucose (UA) (Normal) mg/dL Urine Ketones (NEGATIVE) mg/dL Urine Blood (NEGATIVE) Urine Nitrate (NEGATIVE) Urine Bilirubin (NEGATIVE) Urine Urobilinogen (0.2-1.0) mg/dL Ur Leukocyte Esterase (Negative) Diane/uL Urine WBC (Auto) (0-5) /hpf Urine RBC (Auto) (0-3) /hpf Ur Squamous Epith Cells (0-5) /hpf Urine Bacteria (<OCC) Urine Opiates Screen (NEGATIVE) Urine Methadone Screen (NEGATIVE) Ur Barbiturates Screen (NEGATIVE) Ur Phencyclidine Scrn (NEGATIVE) Ur Amphetamines Screen (NEGATIVE) U Benzodiazepines Scrn (NEGATIVE) U Oth Cocaine Metabols (NEGATIVE) U Cannabinoids Screen (NEGATIVE) IgG (700.0-1600.0) mg/dL IgA (70.0-400.0) mg/dL IgM (40.0-230.0) mg/dL Hepatitis A IgM Ab (NEGATIVE) Hep Bs Antigen (NEGATIVE) Hep B Core IgM Ab (NEGATIVE) Hepatitis C Antibody (NEGATIVE) HIV 1&2 Antibody Screen (NEGATIVE) H.influenzae Type B Ag (NEGATIVE) Ur L.pneumophila Ag (NEGATIVE) Mycoplasma pneumon IgM (NEGATIVE) N.meningitidis ACY/W135 (NEGATIVE) N.meningi B/E.coli K1 Ag (NEGATIVE) Group B Strep Antigen (NEGATIVE) S. pneumoniae Antigen (NEGATIVE) 03/13/17 03/13/17 03/13/17 Range/Units 19:17 19:17 18:57 WBC 9.7 (4.8-10.8) K/uL RBC 4.59 (3.80-5.20) Mil/uL Hgb 15.4 (11.0-16.0) g/dL Hct 45.8 (34.0-47.0) % MCV 99.8 H (81.0-99.0) fL MCH 33.6 H (27.0-31.0) pg MCHC 33.7 (33.0-37.0) g/dL RDW 13.4 (11.5-14.5) % Plt Count 165 (130-400) K/uL MPV 8.5 (7.2-11.7) fL Neut % (Auto) 86.6 H (50.0-75.0) % Lymph % (Auto) 8.0 L (20.0-40.0) % [place] % (Auto) 5.3 (0.0-10.0) % Eos % (Auto) 0.0 (0.0-4.0) % Baso % (Auto) 0.1 (0.0-2.0) % Neut # 8.4 H (1.8-7.0) K/uL Lymph # 0.8 L (1.0-4.3) K/uL [place] # 0.5 (0.0-0.8) K/uL Eos # 0.0 (0.0-0.7) K/uL Baso # 0.0 (0.0-0.2) K/uL Neutrophils % (Manual) 88 H (50-75) % Band Neutrophils % 1 (0-2) % Lymphocytes % (Manual) 7 L (20-40) % Monocytes % (Manual) 4 (0-10) % Basophils % (Manual) (0-2) % Nucleated RBC % (0-0) % Platelet Estimate Normal (NORMAL) RBC Morphology Normal Sodium 138 (132-148) mmol/L Potassium 3.6 (3.6-5.2) mmol/L Chloride 102 (98-107) mmol/L Carbon Dioxide 17 L (22-30) mmol/L Anion Gap 23 H (10-20) BUN 7 (7-17) mg/dL Creatinine 0.6 L (0.7-1.2) mg/dL Est GFR ( Amer) > 60 Est GFR (Non-Af Amer) > 60 POC Glucose (mg/dL) 106 (65-110) mg/dL Random Glucose 97 (65-105) mg/dL Calcium 8.1 L (8.6-10.4) mg/dl Phosphorus (2.5-4.5) mg/dL Magnesium (1.6-2.3) mg/dL Iron (37-170) ug/dL TIBC (250-450) ug/dL % Saturation (20-55) Ferritin ng/mL Total Bilirubin 2.3 H (0.2-1.3) mg/dL AST 717 H D (14-36) U/L ALT 245 H (9-52) U/L Alkaline Phosphatase 105 (38-126) U/L Total Protein 7.0 (6.3-8.3) g/dL Albumin 3.6 (3.5-5.0) g/dL Globulin 3.5 (2.2-3.9) gm/dL Albumin/Globulin Ratio 1.0 (1.0-2.1) Triglycerides (0-149) mg/dL Cholesterol (0-199) mg/dL LDL Cholesterol Direct (0-129) mg/dL HDL Cholesterol (30-70) mg/dL Lipase (23-300) U/L TSH 3rd Generation (0.46-4.68) mIU/L Urine Color (YELLOW) Urine Clarity (Clear) Urine pH (5.0-8.0) Ur Specific [place] (1.003-1.030) Urine Protein (NEGATIVE) mg/dL Urine Glucose (UA) (Normal) mg/dL Urine Ketones (NEGATIVE) mg/dL Urine Blood (NEGATIVE) Urine Nitrate (NEGATIVE) Urine Bilirubin (NEGATIVE) Urine Urobilinogen (0.2-1.0) mg/dL Ur Leukocyte Esterase (Negative) Diane/uL Urine WBC (Auto) (0-5) /hpf Urine RBC (Auto) (0-3) /hpf Ur Squamous Epith Cells (0-5) /hpf Urine Bacteria (<OCC) Urine Opiates Screen (NEGATIVE) Urine Methadone Screen (NEGATIVE) Ur Barbiturates Screen (NEGATIVE) Ur Phencyclidine Scrn (NEGATIVE) Ur Amphetamines Screen (NEGATIVE) U Benzodiazepines Scrn (NEGATIVE) U Oth Cocaine Metabols (NEGATIVE) U Cannabinoids Screen (NEGATIVE) IgG (700.0-1600.0) mg/dL IgA (70.0-400.0) mg/dL IgM (40.0-230.0) mg/dL Hepatitis A IgM Ab (NEGATIVE) Hep Bs Antigen (NEGATIVE) Hep B Core IgM Ab (NEGATIVE) Hepatitis C Antibody (NEGATIVE) HIV 1&2 Antibody Screen (NEGATIVE) H.influenzae Type B Ag (NEGATIVE) Ur L.pneumophila Ag (NEGATIVE) Mycoplasma pneumon IgM (NEGATIVE) N.meningitidis ACY/W135 (NEGATIVE) N.meningi B/E.coli K1 Ag (NEGATIVE) Group B Strep Antigen (NEGATIVE) S. pneumoniae Antigen (NEGATIVE) 03/13/17 03/13/17 03/13/17 Range/Units 18:10 17:46 17:43 WBC (4.8-10.8) K/uL RBC (3.80-5.20) Mil/uL Hgb (11.0-16.0) g/dL Hct (34.0-47.0) % MCV (81.0-99.0) fL MCH (27.0-31.0) pg MCHC (33.0-37.0) g/dL RDW (11.5-14.5) % Plt Count (130-400) K/uL MPV (7.2-11.7) fL Neut % (Auto) (50.0-75.0) % Lymph % (Auto) (20.0-40.0) % [place] % (Auto) (0.0-10.0) % Eos % (Auto) (0.0-4.0) % Baso % (Auto) (0.0-2.0) % Neut # (1.8-7.0) K/uL Lymph # (1.0-4.3) K/uL [place] # (0.0-0.8) K/uL Eos # (0.0-0.7) K/uL Baso # (0.0-0.2) K/uL Neutrophils % (Manual) (50-75) % Band Neutrophils % (0-2) % Lymphocytes % (Manual) (20-40) % Monocytes % (Manual) (0-10) % Basophils % (Manual) (0-2) % Nucleated RBC % (0-0) % Platelet Estimate (NORMAL) RBC Morphology Sodium (132-148) mmol/L Potassium (3.6-5.2) mmol/L Chloride (98-107) mmol/L Carbon Dioxide (22-30) mmol/L Anion Gap (10-20) BUN (7-17) mg/dL Creatinine (0.7-1.2) mg/dL Est GFR ( Amer) Est GFR (Non-Af Amer) POC Glucose (mg/dL) 131 H (65-110) mg/dL Random Glucose (65-105) mg/dL Calcium (8.6-10.4) mg/dl Phosphorus (2.5-4.5) mg/dL Magnesium (1.6-2.3) mg/dL Iron (37-170) ug/dL TIBC (250-450) ug/dL % Saturation (20-55) Ferritin ng/mL Total Bilirubin (0.2-1.3) mg/dL AST (14-36) U/L ALT (9-52) U/L Alkaline Phosphatase (38-126) U/L Total Protein (6.3-8.3) g/dL Albumin (3.5-5.0) g/dL Globulin (2.2-3.9) gm/dL Albumin/Globulin Ratio (1.0-2.1) Triglycerides (0-149) mg/dL Cholesterol (0-199) mg/dL LDL Cholesterol Direct (0-129) mg/dL HDL Cholesterol (30-70) mg/dL Lipase (23-300) U/L TSH 3rd Generation (0.46-4.68) mIU/L Urine Color Yellow (YELLOW) Urine Clarity Hazy (Clear) Urine pH 6.0 (5.0-8.0) Ur Specific [place] 1.027 (1.003-1.030) Urine Protein Negative (NEGATIVE) mg/dL Urine Glucose (UA) Normal (Normal) mg/dL Urine Ketones 1+ H (NEGATIVE) mg/dL Urine Blood 2+ H (NEGATIVE) Urine Nitrate Negative (NEGATIVE) Urine Bilirubin Negative (NEGATIVE) Urine Urobilinogen 2.0 H (0.2-1.0) mg/dL Ur Leukocyte Esterase Neg (Negative) Diane/uL Urine WBC (Auto) 2 (0-5) /hpf Urine RBC (Auto) 16 H (0-3) /hpf Ur Squamous Epith Cells 11 H (0-5) /hpf Urine Bacteria Few H (<OCC) Urine Opiates Screen Positive (NEGATIVE) Urine Methadone Screen Negative (NEGATIVE) Ur Barbiturates Screen Negative (NEGATIVE) Ur Phencyclidine Scrn Negative (NEGATIVE) Ur Amphetamines Screen Negative (NEGATIVE) U Benzodiazepines Scrn Negative (NEGATIVE) U Oth Cocaine Metabols Negative (NEGATIVE) U Cannabinoids Screen Negative (NEGATIVE) IgG (700.0-1600.0) mg/dL IgA (70.0-400.0) mg/dL IgM (40.0-230.0) mg/dL Hepatitis A IgM Ab (NEGATIVE) Hep Bs Antigen (NEGATIVE) Hep B Core IgM Ab (NEGATIVE) Hepatitis C Antibody (NEGATIVE) HIV 1&2 Antibody Screen (NEGATIVE) H.influenzae Type B Ag (NEGATIVE) Ur L.pneumophila Ag (NEGATIVE) Mycoplasma pneumon IgM (NEGATIVE) N.meningitidis ACY/W135 (NEGATIVE) N.meningi B/E.coli K1 Ag (NEGATIVE) Group B Strep Antigen (NEGATIVE) S. pneumoniae Antigen (NEGATIVE) 03/13/17 03/13/17 03/13/17 Range/Units 16:29 16:29 16:00 WBC (4.8-10.8) K/uL RBC (3.80-5.20) Mil/uL Hgb (11.0-16.0) g/dL Hct (34.0-47.0) % MCV (81.0-99.0) fL MCH (27.0-31.0) pg MCHC (33.0-37.0) g/dL RDW (11.5-14.5) % Plt Count (130-400) K/uL MPV (7.2-11.7) fL Neut % (Auto) (50.0-75.0) % Lymph % (Auto) (20.0-40.0) % [place] % (Auto) (0.0-10.0) % Eos % (Auto) (0.0-4.0) % Baso % (Auto) (0.0-2.0) % Neut # (1.8-7.0) K/uL Lymph # (1.0-4.3) K/uL [place] # (0.0-0.8) K/uL Eos # (0.0-0.7) K/uL Baso # (0.0-0.2) K/uL Neutrophils % (Manual) (50-75) % Band Neutrophils % (0-2) % Lymphocytes % (Manual) (20-40) % Monocytes % (Manual) (0-10) % Basophils % (Manual) (0-2) % Nucleated RBC % (0-0) % Platelet Estimate (NORMAL) RBC Morphology Sodium (132-148) mmol/L Potassium (3.6-5.2) mmol/L Chloride (98-107) mmol/L Carbon Dioxide (22-30) mmol/L Anion Gap (10-20) BUN (7-17) mg/dL Creatinine (0.7-1.2) mg/dL Est GFR ( Amer) Est GFR (Non-Af Amer) POC Glucose (mg/dL) (65-110) mg/dL Random Glucose (65-105) mg/dL Calcium (8.6-10.4) mg/dl Phosphorus (2.5-4.5) mg/dL Magnesium (1.6-2.3) mg/dL Iron (37-170) ug/dL TIBC (250-450) ug/dL % Saturation (20-55) Ferritin ng/mL Total Bilirubin (0.2-1.3) mg/dL AST (14-36) U/L ALT (9-52) U/L Alkaline Phosphatase (38-126) U/L Total Protein (6.3-8.3) g/dL Albumin (3.5-5.0) g/dL Globulin (2.2-3.9) gm/dL Albumin/Globulin Ratio (1.0-2.1) Triglycerides (0-149) mg/dL Cholesterol (0-199) mg/dL LDL Cholesterol Direct (0-129) mg/dL HDL Cholesterol (30-70) mg/dL Lipase (23-300) U/L TSH 3rd Generation (0.46-4.68) mIU/L Urine Color (YELLOW) Urine Clarity (Clear) Urine pH (5.0-8.0) Ur Specific [place] (1.003-1.030) Urine Protein (NEGATIVE) mg/dL Urine Glucose (UA) (Normal) mg/dL Urine Ketones (NEGATIVE) mg/dL Urine Blood (NEGATIVE) Urine Nitrate (NEGATIVE) Urine Bilirubin (NEGATIVE) Urine Urobilinogen (0.2-1.0) mg/dL Ur Leukocyte Esterase (Negative) Diane/uL Urine WBC (Auto) (0-5) /hpf Urine RBC (Auto) (0-3) /hpf Ur Squamous Epith Cells (0-5) /hpf Urine Bacteria (<OCC) Urine Opiates Screen Positive (NEGATIVE) Urine Methadone Screen Negative (NEGATIVE) Ur Barbiturates Screen Negative (NEGATIVE) Ur Phencyclidine Scrn Negative (NEGATIVE) Ur Amphetamines Screen Negative (NEGATIVE) U Benzodiazepines Scrn Negative (NEGATIVE) U Oth Cocaine Metabols Negative (NEGATIVE) U Cannabinoids Screen Negative (NEGATIVE) IgG (700.0-1600.0) mg/dL IgA (70.0-400.0) mg/dL IgM (40.0-230.0) mg/dL Hepatitis A IgM Ab (NEGATIVE) Hep Bs Antigen (NEGATIVE) Hep B Core IgM Ab (NEGATIVE) Hepatitis C Antibody (NEGATIVE) HIV 1&2 Antibody Screen (NEGATIVE) H.influenzae Type B Ag Not required (NEGATIVE) Ur L.pneumophila Ag Negative (NEGATIVE) Mycoplasma pneumon IgM Negative (NEGATIVE) N.meningitidis ACY/W135 Not required (NEGATIVE) N.meningi B/E.coli K1 Ag Not required (NEGATIVE) Group B Strep Antigen Not required (NEGATIVE) S. pneumoniae Antigen Negative (NEGATIVE) 03/13/17 03/13/17 03/13/17 Range/Units 15:33 15:33 14:07 WBC (4.8-10.8) K/uL RBC (3.80-5.20) Mil/uL Hgb (11.0-16.0) g/dL Hct (34.0-47.0) % MCV (81.0-99.0) fL MCH (27.0-31.0) pg MCHC (33.0-37.0) g/dL RDW (11.5-14.5) % Plt Count (130-400) K/uL MPV (7.2-11.7) fL Neut % (Auto) (50.0-75.0) % Lymph % (Auto) (20.0-40.0) % [place] % (Auto) (0.0-10.0) % Eos % (Auto) (0.0-4.0) % Baso % (Auto) (0.0-2.0) % Neut # (1.8-7.0) K/uL Lymph # (1.0-4.3) K/uL [place] # (0.0-0.8) K/uL Eos # (0.0-0.7) K/uL Baso # (0.0-0.2) K/uL Neutrophils % (Manual) (50-75) % Band Neutrophils % (0-2) % Lymphocytes % (Manual) (20-40) % Monocytes % (Manual) (0-10) % Basophils % (Manual) (0-2) % Nucleated RBC % (0-0) % Platelet Estimate (NORMAL) RBC Morphology Sodium 138 (132-148) mmol/L Potassium 3.4 L (3.6-5.2) mmol/L Chloride 103 (98-107) mmol/L Carbon Dioxide 10 L* (22-30) mmol/L Anion Gap 28 H (10-20) BUN 7 (7-17) mg/dL Creatinine 0.7 (0.7-1.2) mg/dL Est GFR ( Amer) > 60 Est GFR (Non-Af Amer) > 60 POC Glucose (mg/dL) (65-110) mg/dL Random Glucose 107 H (65-105) mg/dL Calcium 8.0 L (8.6-10.4) mg/dl Phosphorus (2.5-4.5) mg/dL Magnesium (1.6-2.3) mg/dL Iron 201 H (37-170) ug/dL TIBC 194 L (250-450) ug/dL % Saturation 104 H (20-55) Ferritin ng/mL Total Bilirubin (0.2-1.3) mg/dL AST (14-36) U/L ALT (9-52) U/L Alkaline Phosphatase (38-126) U/L Total Protein (6.3-8.3) g/dL Albumin (3.5-5.0) g/dL Globulin (2.2-3.9) gm/dL Albumin/Globulin Ratio (1.0-2.1) Triglycerides (0-149) mg/dL Cholesterol (0-199) mg/dL LDL Cholesterol Direct (0-129) mg/dL HDL Cholesterol (30-70) mg/dL Lipase (23-300) U/L TSH 3rd Generation (0.46-4.68) mIU/L Urine Color (YELLOW) Urine Clarity (Clear) Urine pH (5.0-8.0) Ur Specific [place] (1.003-1.030) Urine Protein (NEGATIVE) mg/dL Urine Glucose (UA) (Normal) mg/dL Urine Ketones (NEGATIVE) mg/dL Urine Blood (NEGATIVE) Urine Nitrate (NEGATIVE) Urine Bilirubin (NEGATIVE) Urine Urobilinogen (0.2-1.0) mg/dL Ur Leukocyte Esterase (Negative) Diane/uL Urine WBC (Auto) (0-5) /hpf Urine RBC (Auto) (0-3) /hpf Ur Squamous Epith Cells (0-5) /hpf Urine Bacteria (<OCC) Urine Opiates Screen (NEGATIVE) Urine Methadone Screen (NEGATIVE) Ur Barbiturates Screen (NEGATIVE) Ur Phencyclidine Scrn (NEGATIVE) Ur Amphetamines Screen (NEGATIVE) U Benzodiazepines Scrn (NEGATIVE) U Oth Cocaine Metabols (NEGATIVE) U Cannabinoids Screen (NEGATIVE) IgG 893.6 (700.0-1600.0) mg/dL IgA 202.2 (70.0-400.0) mg/dL IgM 155.3 (40.0-230.0) mg/dL Hepatitis A IgM Ab (NEGATIVE) Hep Bs Antigen (NEGATIVE) Hep B Core IgM Ab (NEGATIVE) Hepatitis C Antibody (NEGATIVE) HIV 1&2 Antibody Screen (NEGATIVE) H.influenzae Type B Ag (NEGATIVE) Ur L.pneumophila Ag (NEGATIVE) Mycoplasma pneumon IgM (NEGATIVE) N.meningitidis ACY/W135 (NEGATIVE) N.meningi B/E.coli K1 Ag (NEGATIVE) Group B Strep Antigen (NEGATIVE) S. pneumoniae Antigen (NEGATIVE) 03/13/17 03/13/17 03/13/17 Range/Units 14:06 14:06 14:06 WBC (4.8-10.8) K/uL RBC (3.80-5.20) Mil/uL Hgb (11.0-16.0) g/dL Hct (34.0-47.0) % MCV (81.0-99.0) fL MCH (27.0-31.0) pg MCHC (33.0-37.0) g/dL RDW (11.5-14.5) % Plt Count (130-400) K/uL MPV (7.2-11.7) fL Neut % (Auto) (50.0-75.0) % Lymph % (Auto) (20.0-40.0) % [place] % (Auto) (0.0-10.0) % Eos % (Auto) (0.0-4.0) % Baso % (Auto) (0.0-2.0) % Neut # (1.8-7.0) K/uL Lymph # (1.0-4.3) K/uL [place] # (0.0-0.8) K/uL Eos # (0.0-0.7) K/uL Baso # (0.0-0.2) K/uL Neutrophils % (Manual) (50-75) % Band Neutrophils % (0-2) % Lymphocytes % (Manual) (20-40) % Monocytes % (Manual) (0-10) % Basophils % (Manual) (0-2) % Nucleated RBC % (0-0) % Platelet Estimate (NORMAL) RBC Morphology Sodium (132-148) mmol/L Potassium (3.6-5.2) mmol/L Chloride (98-107) mmol/L Carbon Dioxide (22-30) mmol/L Anion Gap (10-20) BUN (7-17) mg/dL Creatinine (0.7-1.2) mg/dL Est GFR ( Amer) Est GFR (Non-Af Amer) POC Glucose (mg/dL) (65-110) mg/dL Random Glucose (65-105) mg/dL Calcium (8.6-10.4) mg/dl Phosphorus (2.5-4.5) mg/dL Magnesium (1.6-2.3) mg/dL Iron (37-170) ug/dL TIBC (250-450) ug/dL % Saturation (20-55) Ferritin 1940.0 ng/mL Total Bilirubin (0.2-1.3) mg/dL AST (14-36) U/L ALT (9-52) U/L Alkaline Phosphatase (38-126) U/L Total Protein (6.3-8.3) g/dL Albumin (3.5-5.0) g/dL Globulin (2.2-3.9) gm/dL Albumin/Globulin Ratio (1.0-2.1) Triglycerides 1727 H (0-149) mg/dL Cholesterol (0-199) mg/dL LDL Cholesterol Direct 96 (0-129) mg/dL HDL Cholesterol (30-70) mg/dL Lipase (23-300) U/L TSH 3rd Generation (0.46-4.68) mIU/L Urine Color (YELLOW) Urine Clarity (Clear) Urine pH (5.0-8.0) Ur Specific [place] (1.003-1.030) Urine Protein (NEGATIVE) mg/dL Urine Glucose (UA) (Normal) mg/dL Urine Ketones (NEGATIVE) mg/dL Urine Blood (NEGATIVE) Urine Nitrate (NEGATIVE) Urine Bilirubin (NEGATIVE) Urine Urobilinogen (0.2-1.0) mg/dL Ur Leukocyte Esterase (Negative) Diane/uL Urine WBC (Auto) (0-5) /hpf Urine RBC (Auto) (0-3) /hpf Ur Squamous Epith Cells (0-5) /hpf Urine Bacteria (<OCC) Urine Opiates Screen (NEGATIVE) Urine Methadone Screen (NEGATIVE) Ur Barbiturates Screen (NEGATIVE) Ur Phencyclidine Scrn (NEGATIVE) Ur Amphetamines Screen (NEGATIVE) U Benzodiazepines Scrn (NEGATIVE) U Oth Cocaine Metabols (NEGATIVE) U Cannabinoids Screen (NEGATIVE) IgG (700.0-1600.0) mg/dL IgA (70.0-400.0) mg/dL IgM (40.0-230.0) mg/dL Hepatitis A IgM Ab Negative (NEGATIVE) Hep Bs Antigen Negative (NEGATIVE) Hep B Core IgM Ab Negative (NEGATIVE) Hepatitis C Antibody Negative (NEGATIVE) HIV 1&2 Antibody Screen Negative (NEGATIVE) H.influenzae Type B Ag (NEGATIVE) Ur L.pneumophila Ag (NEGATIVE) Mycoplasma pneumon IgM (NEGATIVE) N.meningitidis ACY/W135 (NEGATIVE) N.meningi B/E.coli K1 Ag (NEGATIVE) Group B Strep Antigen (NEGATIVE) S. pneumoniae Antigen (NEGATIVE) Laboratory Results - last 24 hr 03/13/17 03/13/17 03/13/17 14:06 14:06 14:06 WBC RBC Hgb Hct MCV MCH MCHC RDW Plt Count MPV Neut % (Auto) Lymph % (Auto) [place] % (Auto) Eos % (Auto) Baso % (Auto) Neut # Lymph # [place] # Eos # Baso # Neutrophils % (Manual) Band Neutrophils % Lymphocytes % (Manual) Monocytes % (Manual) Basophils % (Manual) Nucleated RBC % Platelet Estimate RBC Morphology Sodium Potassium Chloride Carbon Dioxide Anion Gap BUN Creatinine Est GFR ( Amer) Est GFR (Non-Af Amer) POC Glucose (mg/dL) Random Glucose Calcium Phosphorus Magnesium Iron TIBC % Saturation Ferritin 1940.0 Total Bilirubin AST ALT Alkaline Phosphatase Total Protein Albumin Globulin Albumin/Globulin Ratio Triglycerides 1727 H Cholesterol LDL Cholesterol Direct 96 HDL Cholesterol Lipase TSH 3rd Generation Urine Color Urine Clarity Urine pH Ur Specific [place] Urine Protein Urine Glucose (UA) Urine Ketones Urine Blood Urine Nitrate Urine Bilirubin Urine Urobilinogen Ur Leukocyte Esterase Urine WBC (Auto) Urine RBC (Auto) Ur Squamous Epith Cells Urine Bacteria Urine Opiates Screen Urine Methadone Screen Ur Barbiturates Screen Ur Phencyclidine Scrn Ur Amphetamines Screen U Benzodiazepines Scrn U Oth Cocaine Metabols U Cannabinoids Screen IgG IgA IgM Hepatitis A IgM Ab Negative Hep Bs Antigen Negative Hep B Core IgM Ab Negative Hepatitis C Antibody Negative HIV 1&2 Antibody Screen Negative H.influenzae Type B Ag Ur L.pneumophila Ag Mycoplasma pneumon IgM N.meningitidis ACY/W135 N.meningi B/E.coli K1 Ag Group B Strep Antigen S. pneumoniae Antigen 03/13/17 03/13/17 03/13/17 14:07 15:33 15:33 WBC RBC Hgb Hct MCV MCH MCHC RDW Plt Count MPV Neut % (Auto) Lymph % (Auto) [place] % (Auto) Eos % (Auto) Baso % (Auto) Neut # Lymph # [place] # Eos # Baso # Neutrophils % (Manual) Band Neutrophils % Lymphocytes % (Manual) Monocytes % (Manual) Basophils % (Manual) Nucleated RBC % Platelet Estimate RBC Morphology Sodium 138 Potassium 3.4 L Chloride 103 Carbon Dioxide 10 L* Anion Gap 28 H BUN 7 Creatinine 0.7 Est GFR ( Amer) > 60 Est GFR (Non-Af Amer) > 60 POC Glucose (mg/dL) Random Glucose 107 H Calcium 8.0 L Phosphorus Magnesium Iron 201 H TIBC 194 L % Saturation 104 H Ferritin Total Bilirubin AST ALT Alkaline Phosphatase Total Protein Albumin Globulin Albumin/Globulin Ratio Triglycerides Cholesterol LDL Cholesterol Direct HDL Cholesterol Lipase TSH 3rd Generation Urine Color Urine Clarity Urine pH Ur Specific [place] Urine Protein Urine Glucose (UA) Urine Ketones Urine Blood Urine Nitrate Urine Bilirubin Urine Urobilinogen Ur Leukocyte Esterase Urine WBC (Auto) Urine RBC (Auto) Ur Squamous Epith Cells Urine Bacteria Urine Opiates Screen Urine Methadone Screen Ur Barbiturates Screen Ur Phencyclidine Scrn Ur Amphetamines Screen U Benzodiazepines Scrn U Oth Cocaine Metabols U Cannabinoids Screen IgG 893.6 IgA 202.2 IgM 155.3 Hepatitis A IgM Ab Hep Bs Antigen Hep B Core IgM Ab Hepatitis C Antibody HIV 1&2 Antibody Screen H.influenzae Type B Ag Ur L.pneumophila Ag Mycoplasma pneumon IgM N.meningitidis ACY/W135 N.meningi B/E.coli K1 Ag Group B Strep Antigen S. pneumoniae Antigen 03/13/17 03/13/17 03/13/17 16:00 16:29 16:29 WBC RBC Hgb Hct MCV MCH MCHC RDW Plt Count MPV Neut % (Auto) Lymph % (Auto) [place] % (Auto) Eos % (Auto) Baso % (Auto) Neut # Lymph # [place] # Eos # Baso # Neutrophils % (Manual) Band Neutrophils % Lymphocytes % (Manual) Monocytes % (Manual) Basophils % (Manual) Nucleated RBC % Platelet Estimate RBC Morphology Sodium Potassium Chloride Carbon Dioxide Anion Gap BUN Creatinine Est GFR ( Amer) Est GFR (Non-Af Amer) POC Glucose (mg/dL) Random Glucose Calcium Phosphorus Magnesium Iron TIBC % Saturation Ferritin Total Bilirubin AST ALT Alkaline Phosphatase Total Protein Albumin Globulin Albumin/Globulin Ratio Triglycerides Cholesterol LDL Cholesterol Direct HDL Cholesterol Lipase TSH 3rd Generation Urine Color Urine Clarity Urine pH Ur Specific [place] Urine Protein Urine Glucose (UA) Urine Ketones Urine Blood Urine Nitrate Urine Bilirubin Urine Urobilinogen Ur Leukocyte Esterase Urine WBC (Auto) Urine RBC (Auto) Ur Squamous Epith Cells Urine Bacteria Urine Opiates Screen Positive Urine Methadone Screen Negative Ur Barbiturates Screen Negative Ur Phencyclidine Scrn Negative Ur Amphetamines Screen Negative U Benzodiazepines Scrn Negative U Oth Cocaine Metabols Negative U Cannabinoids Screen Negative IgG IgA IgM Hepatitis A IgM Ab Hep Bs Antigen Hep B Core IgM Ab Hepatitis C Antibody HIV 1&2 Antibody Screen H.influenzae Type B Ag Not required Ur L.pneumophila Ag Negative Mycoplasma pneumon IgM Negative N.meningitidis ACY/W135 Not required N.meningi B/E.coli K1 Ag Not required Group B Strep Antigen Not required S. pneumoniae Antigen Negative 03/13/17 03/13/17 03/13/17 17:43 17:46 18:10 WBC RBC Hgb Hct MCV MCH MCHC RDW Plt Count MPV Neut % (Auto) Lymph % (Auto) [place] % (Auto) Eos % (Auto) Baso % (Auto) Neut # Lymph # [place] # Eos # Baso # Neutrophils % (Manual) Band Neutrophils % Lymphocytes % (Manual) Monocytes % (Manual) Basophils % (Manual) Nucleated RBC % Platelet Estimate RBC Morphology Sodium Potassium Chloride Carbon Dioxide Anion Gap BUN Creatinine Est GFR ( Amer) Est GFR (Non-Af Amer) POC Glucose (mg/dL) 131 H Random Glucose Calcium Phosphorus Magnesium Iron TIBC % Saturation Ferritin Total Bilirubin AST ALT Alkaline Phosphatase Total Protein Albumin Globulin Albumin/Globulin Ratio Triglycerides Cholesterol LDL Cholesterol Direct HDL Cholesterol Lipase TSH 3rd Generation Urine Color Yellow Urine Clarity Hazy Urine pH 6.0 Ur Specific [place] 1.027 Urine Protein Negative Urine Glucose (UA) Normal Urine Ketones 1+ H Urine Blood 2+ H Urine Nitrate Negative Urine Bilirubin Negative Urine Urobilinogen 2.0 H Ur Leukocyte Esterase Neg Urine WBC (Auto) 2 Urine RBC (Auto) 16 H Ur Squamous Epith Cells 11 H Urine Bacteria Few H Urine Opiates Screen Positive Urine Methadone Screen Negative Ur Barbiturates Screen Negative Ur Phencyclidine Scrn Negative Ur Amphetamines Screen Negative U Benzodiazepines Scrn Negative U Oth Cocaine Metabols Negative U Cannabinoids Screen Negative IgG IgA IgM Hepatitis A IgM Ab Hep Bs Antigen Hep B Core IgM Ab Hepatitis C Antibody HIV 1&2 Antibody Screen H.influenzae Type B Ag Ur L.pneumophila Ag Mycoplasma pneumon IgM N.meningitidis ACY/W135 N.meningi B/E.coli K1 Ag Group B Strep Antigen S. pneumoniae Antigen 03/13/17 03/13/17 03/13/17 18:57 19:17 19:17 WBC 9.7 RBC 4.59 Hgb 15.4 Hct 45.8 MCV 99.8 H MCH 33.6 H MCHC 33.7 RDW 13.4 Plt Count 165 MPV 8.5 Neut % (Auto) 86.6 H Lymph % (Auto) 8.0 L [place] % (Auto) 5.3 Eos % (Auto) 0.0 Baso % (Auto) 0.1 Neut # 8.4 H Lymph # 0.8 L [place] # 0.5 Eos # 0.0 Baso # 0.0 Neutrophils % (Manual) 88 H Band Neutrophils % 1 Lymphocytes % (Manual) 7 L Monocytes % (Manual) 4 Basophils % (Manual) Nucleated RBC % Platelet Estimate Normal RBC Morphology Normal Sodium 138 Potassium 3.6 Chloride 102 Carbon Dioxide 17 L Anion Gap 23 H BUN 7 Creatinine 0.6 L Est GFR ( Amer) > 60 Est GFR (Non-Af Amer) > 60 POC Glucose (mg/dL) 106 Random Glucose 97 Calcium 8.1 L Phosphorus Magnesium Iron TIBC % Saturation Ferritin Total Bilirubin 2.3 H AST 717 H D ALT 245 H Alkaline Phosphatase 105 Total Protein 7.0 Albumin 3.6 Globulin 3.5 Albumin/Globulin Ratio 1.0 Triglycerides Cholesterol LDL Cholesterol Direct HDL Cholesterol Lipase TSH 3rd Generation Urine Color Urine Clarity Urine pH Ur Specific [place] Urine Protein Urine Glucose (UA) Urine Ketones Urine Blood Urine Nitrate Urine Bilirubin Urine Urobilinogen Ur Leukocyte Esterase Urine WBC (Auto) Urine RBC (Auto) Ur Squamous Epith Cells Urine Bacteria Urine Opiates Screen Urine Methadone Screen Ur Barbiturates Screen Ur Phencyclidine Scrn Ur Amphetamines Screen U Benzodiazepines Scrn U Oth Cocaine Metabols U Cannabinoids Screen IgG IgA IgM Hepatitis A IgM Ab Hep Bs Antigen Hep B Core IgM Ab Hepatitis C Antibody HIV 1&2 Antibody Screen H.influenzae Type B Ag Ur L.pneumophila Ag Mycoplasma pneumon IgM N.meningitidis ACY/W135 N.meningi B/E.coli K1 Ag Group B Strep Antigen S. pneumoniae Antigen 03/13/17 03/13/17 03/13/17 20:09 22:09 23:58 WBC RBC Hgb Hct MCV MCH MCHC RDW Plt Count MPV Neut % (Auto) Lymph % (Auto) [place] % (Auto) Eos % (Auto) Baso % (Auto) Neut # Lymph # [place] # Eos # Baso # Neutrophils % (Manual) Band Neutrophils % Lymphocytes % (Manual) Monocytes % (Manual) Basophils % (Manual) Nucleated RBC % Platelet Estimate RBC Morphology Sodium Potassium Chloride Carbon Dioxide Anion Gap BUN Creatinine Est GFR ( Amer) Est GFR (Non-Af Amer) POC Glucose (mg/dL) 103 98 118 H Random Glucose Calcium Phosphorus Magnesium Iron TIBC % Saturation Ferritin Total Bilirubin AST ALT Alkaline Phosphatase Total Protein Albumin Globulin Albumin/Globulin Ratio Triglycerides Cholesterol LDL Cholesterol Direct HDL Cholesterol Lipase TSH 3rd Generation Urine Color Urine Clarity Urine pH Ur Specific [place] Urine Protein Urine Glucose (UA) Urine Ketones Urine Blood Urine Nitrate Urine Bilirubin Urine Urobilinogen Ur Leukocyte Esterase Urine WBC (Auto) Urine RBC (Auto) Ur Squamous Epith Cells Urine Bacteria Urine Opiates Screen Urine Methadone Screen Ur Barbiturates Screen Ur Phencyclidine Scrn Ur Amphetamines Screen U Benzodiazepines Scrn U Oth Cocaine Metabols U Cannabinoids Screen IgG IgA IgM Hepatitis A IgM Ab Hep Bs Antigen Hep B Core IgM Ab Hepatitis C Antibody HIV 1&2 Antibody Screen H.influenzae Type B Ag Ur L.pneumophila Ag Mycoplasma pneumon IgM N.meningitidis ACY/W135 N.meningi B/E.coli K1 Ag Group B Strep Antigen S. pneumoniae Antigen 03/14/17 03/14/17 03/14/17 01:56 03:58 06:00 WBC RBC Hgb Hct MCV MCH MCHC RDW Plt Count MPV Neut % (Auto) Lymph % (Auto) [place] % (Auto) Eos % (Auto) Baso % (Auto) Neut # Lymph # [place] # Eos # Baso # Neutrophils % (Manual) Band Neutrophils % Lymphocytes % (Manual) Monocytes % (Manual) Basophils % (Manual) Nucleated RBC % Platelet Estimate RBC Morphology Sodium Potassium Chloride Carbon Dioxide Anion Gap BUN Creatinine Est GFR ( Amer) Est GFR (Non-Af Amer) POC Glucose (mg/dL) 121 H 107 126 H Random Glucose Calcium Phosphorus Magnesium Iron TIBC % Saturation Ferritin Total Bilirubin AST ALT Alkaline Phosphatase Total Protein Albumin Globulin Albumin/Globulin Ratio Triglycerides Cholesterol LDL Cholesterol Direct HDL Cholesterol Lipase TSH 3rd Generation Urine Color Urine Clarity Urine pH Ur Specific [place] Urine Protein Urine Glucose (UA) Urine Ketones Urine Blood Urine Nitrate Urine Bilirubin Urine Urobilinogen Ur Leukocyte Esterase Urine WBC (Auto) Urine RBC (Auto) Ur Squamous Epith Cells Urine Bacteria Urine Opiates Screen Urine Methadone Screen Ur Barbiturates Screen Ur Phencyclidine Scrn Ur Amphetamines Screen U Benzodiazepines Scrn U Oth Cocaine Metabols U Cannabinoids Screen IgG IgA IgM Hepatitis A IgM Ab Hep Bs Antigen Hep B Core IgM Ab Hepatitis C Antibody HIV 1&2 Antibody Screen H.influenzae Type B Ag Ur L.pneumophila Ag Mycoplasma pneumon IgM N.meningitidis ACY/W135 N.meningi B/E.coli K1 Ag Group B Strep Antigen S. pneumoniae Antigen 03/14/17 03/14/17 03/14/17 06:32 06:32 08:12 WBC 8.5 RBC 4.37 Hgb 14.9 Hct 43.9 MCV 100.5 H MCH 34.0 H MCHC 33.8 RDW 13.8 Plt Count 117 L D MPV 8.7 Neut % (Auto) 85.6 H Lymph % (Auto) 9.3 L [place] % (Auto) 4.6 Eos % (Auto) 0.2 Baso % (Auto) 0.3 Neut # 7.3 H Lymph # 0.8 L [place] # 0.4 Eos # 0.0 Baso # 0.0 Neutrophils % (Manual) 82 H Band Neutrophils % 7 H Lymphocytes % (Manual) 6 L Monocytes % (Manual) 4 Basophils % (Manual) 1 Nucleated RBC % 1 H Platelet Estimate Slightly decreased L RBC Morphology Normal Sodium 139 Potassium 3.8 Chloride 102 Carbon Dioxide 22 Anion Gap 20 BUN 6 L Creatinine 0.7 Est GFR ( Amer) > 60 Est GFR (Non-Af Amer) > 60 POC Glucose (mg/dL) 105 Random Glucose 108 H Calcium 8.2 L Phosphorus 1.7 L Magnesium 1.5 L Iron TIBC % Saturation Ferritin Total Bilirubin 3.1 H AST 639 H ALT 211 H Alkaline Phosphatase 90 Total Protein 6.6 Albumin 3.2 L Globulin 3.3 Albumin/Globulin Ratio 1.0 Triglycerides Cholesterol 206 H LDL Cholesterol Direct 82 HDL Cholesterol 51 Lipase 3227 H TSH 3rd Generation 3.81 Urine Color Urine Clarity Urine pH Ur Specific [place] Urine Protein Urine Glucose (UA) Urine Ketones Urine Blood Urine Nitrate Urine Bilirubin Urine Urobilinogen Ur Leukocyte Esterase Urine WBC (Auto) Urine RBC (Auto) Ur Squamous Epith Cells Urine Bacteria Urine Opiates Screen Urine Methadone Screen Ur Barbiturates Screen Ur Phencyclidine Scrn Ur Amphetamines Screen U Benzodiazepines Scrn U Oth Cocaine Metabols U Cannabinoids Screen IgG IgA IgM Hepatitis A IgM Ab Hep Bs Antigen Hep B Core IgM Ab Hepatitis C Antibody HIV 1&2 Antibody Screen H.influenzae Type B Ag Ur L.pneumophila Ag Mycoplasma pneumon IgM N.meningitidis ACY/W135 N.meningi B/E.coli K1 Ag Group B Strep Antigen S. pneumoniae Antigen 03/14/17 03/14/17 03/14/17 10:05 12:17 14:35 WBC RBC Hgb Hct MCV MCH MCHC RDW Plt Count MPV Neut % (Auto) Lymph % (Auto) [place] % (Auto) Eos % (Auto) Baso % (Auto) Neut # Lymph # [place] # Eos # Baso # Neutrophils % (Manual) Band Neutrophils % Lymphocytes % (Manual) Monocytes % (Manual) Basophils % (Manual) Nucleated RBC % Platelet Estimate RBC Morphology Sodium Potassium Chloride Carbon Dioxide Anion Gap BUN Creatinine Est GFR ( Amer) Est GFR (Non-Af Amer) POC Glucose (mg/dL) 146 H 141 H 147 H Random Glucose Calcium Phosphorus Magnesium Iron TIBC % Saturation Ferritin Total Bilirubin AST ALT Alkaline Phosphatase Total Protein Albumin Globulin Albumin/Globulin Ratio Triglycerides Cholesterol LDL Cholesterol Direct HDL Cholesterol Lipase TSH 3rd Generation Urine Color Urine Clarity Urine pH Ur Specific [place] Urine Protein Urine Glucose (UA) Urine Ketones Urine Blood Urine Nitrate Urine Bilirubin Urine Urobilinogen Ur Leukocyte Esterase Urine WBC (Auto) Urine RBC (Auto) Ur Squamous Epith Cells Urine Bacteria Urine Opiates Screen Urine Methadone Screen Ur Barbiturates Screen Ur Phencyclidine Scrn Ur Amphetamines Screen U Benzodiazepines Scrn U Oth Cocaine Metabols U Cannabinoids Screen IgG IgA IgM Hepatitis A IgM Ab Hep Bs Antigen Hep B Core IgM Ab Hepatitis C Antibody HIV 1&2 Antibody Screen H.influenzae Type B Ag Ur L.pneumophila Ag Mycoplasma pneumon IgM N.meningitidis ACY/W135 N.meningi B/E.coli K1 Ag Group B Strep Antigen S. pneumoniae Antigen Fingerstick Blood Sugar Results: 141 Review of Systems - Constitutional Constitutional: Weakness. absent: Fever, Chills - EENT Eyes: absent: Blurred Vision, Change in Vision Ears: absent: Dizziness - Cardiovascular Cardiovascular: Palpitations. absent: Chest Pain, Chest Pain at Rest, Diaphoresis, Dyspnea, Lightheadedness - Respiratory Respiratory: absent: Dyspnea, Wheezing - Gastrointestinal Gastrointestinal: Abdominal Pain. absent: Cramping, Diarrhea, Nausea, Vomiting - Psychiatric Psychiatric: Anxiety - Endocrine Endocrine: Fatigue, Palpitations Critical Care Progress Note - Nutrition Nutrition: Nutrition Category Date Time Status Liquid Diet [DIET] Diets 03/14/17 Breakfast Active Assessment/Plan - Assessment and Plan (Free Text) Assessment: Patient is a 31 year old female past medical history of hypertension who presents tot he ED with complaints of abdominal pain, vomiting and watery diarrhea that started 2-3 days ago, with lactate level of 9.5, 6.5 and lipase of 6496. Patient was admitted to the ICU with consideration of acute pancreatitis and transaminitis Today: Plan: Continue to monitor Plan: Neuro: Alert, awake and oriented Cardio: Hx of HTN Medication and Management: * Norvasc 5mg PO daily Pulm: No acute issues GI: Acute Pancreatitis and transaminitis and Constipation GI consult, Dr. Okeefe---> help appreciated * Management as per recommendation Imaging: Abdominal US (03/05/17): Enlarged liver measuring up to 20.6cm in length with diffuse increased echogenicity suggestive for fatty infiltration Chest CT/Abdomen/Pelvis ( 03/13/17): Extensive peripancreatic inflammatory stranding and fluid which tracks inferiorly as well as pancreatic edema. Constellation of findings consistent with acute pancreatitis. Correlate clinically including amylase and lipase. * Hepatomegaly. Severe diffuse hypoattenuation of the liver compatible with hepatic steatosis. 2.0 x 4.2 cm more focal hypodensity within the inferior right hepatic lobe near the portal confluence, possibly more focal fatty infiltration. * Contrast within the gallbladder presumably due to vicarious excretion. * Small to moderate pelvic free fluid. Labs: * Hepatitis panel: Negative Medication/Management: * Transaminitis and lipase trending down * NPO * Dilaudid 1mg IV Q4H PRN for pain control * LR @ 100mls/hr * D5W/NS @ 100mls/hr * Miralax 17gm PO daily Endo: Hypertriglyceridemia Endocrinology Consult, Dr. Sung---> Help appreciated Medication/Management: * Insulin drip at 2mls/hr * Accuchecks Q1 Psych: Alcohol disorder, Anxiety and Insomnia Psychiatry Consult, Dr. Deshpande---> Help appreciated * Educated on alcohol cessation * Alcohol withdrawal protocol Medication/Management: * Gabapentin 100mg PO TID * Trazodone 50mg PO HS * Ativan 1mg IVP Q6H prn ID: No acute issues Prophylaxis: DVT: SCDs, Heparin 5,000 units SC Q8H GI: Pepcid 20mg IVP <[email or web address] M - Last Filed: 03/14/17 19:10> CCU Objective - Vital Signs / Intake & Output Vital Signs (Last 4 hours): Vital Signs Temp Pulse Resp BP Pulse Ox 03/14/17 18:00 132 H 25 H 129/99 H 100 03/14/17 17:01 129 H 22 134/96 H 100 03/14/17 17:00 128 H 20 100 03/14/17 16:05 129 H 28 H 139/93 H 100 03/14/17 16:00 98.3 F 124 H 20 100 Intake and Output (Last 8hrs): Intake & Output 03/14/17 03/14/17 03/14/17 06:59 14:59 22:59 Intake Total 1616 2066.0 1120.5 Output Total 200 250 0 Balance 1416 1816.0 1120.5 Intake: Intake, IV Amount 1616 1966.0 970.5 Left Antecubital 800 700 Left Antecubital Y-site 800 700 Left Distal Port 16 14 Antecubital Left Distal Port Forearm 100 400 Left Forearm 2 8 Left Proximal Port 100 400 Forearm Right Wrist 350.0 162.5 Oral 100 150 Output: Urine 200 250 0 Urine, Voided 200 250 0 Other: # Voids Urine, Voided 1 1 # Bowel Movements 0 0 - Medications Active Medications: Active Medications Generic Name Dose Route Start Last Admin Trade Name Freq PRN Reason Stop Dose Admin Amlodipine Besylate 5 mg 03/14/17 10:30 03/14/17 10:37 Norvasc PO 5 mg DAILY MONIKA Administration Famotidine 20 mg 03/13/17 22:00 03/14/17 09:12 Pepcid IVP 20 mg Q12 MONIKA Administration Gabapentin 100 mg 03/14/17 14:00 03/14/17 17:21 Neurontin PO 100 mg TID MONIKA Administration Heparin Sodium (Porcine) 5,000 units 03/14/17 14:00 03/14/17 13:59 Heparin SC 5,000 units Q8 MONIKA Administration Hydromorphone HCl 1 mg 03/13/17 14:29 03/14/17 18:37 Dilaudid IVP 1 mg Q4H PRN Administration Pain, severe (8-10) Insulin Human Regular 100 unit 100 mls @ 2 mls/hr 03/13/17 20:00 03/13/17 20: 00 / Sodium Chloride IV 2 mls/hr .Q24H MONIKA Administration Lactated Ringer's 1,000 mls @ 100 mls/hr 03/13/17 22:12 03/14/17 15:49 Lactated Ringer's IV 100 mls/hr .Q10H MONIKA Administration Dextrose/Sodium Chloride 1,000 mls @ 100 mls/hr 03/13/17 22:15 03/14/17 17:33 Dextrose 5%/0.9% Ns 1000 Ml IV 100 mls/hr .Q10H MONIKA Administration Lorazepam 1 mg 03/13/17 19:14 Ativan IVP Q4H PRN Symptoms of alcohol withdrawl Polyethylene Glycol 17 gm 03/14/17 08:05 03/14/17 09:20 Miralax PO 17 gm DAILY PRN Administration Constipation Trazodone HCl 50 mg 03/14/17 22:00 Desyrel PO HS MONIKA - Patient Studies Lab Studies: Microbiology Studies 03/13/17 Unknown MRSA Culture (Admit) - Final Naris MRSA NOT DETECTED Lab Studies 03/14/17 03/14/17 03/14/17 Range/Units 17:57 16:08 15:34 WBC (4.8-10.8) K/uL RBC (3.80-5.20) Mil/uL Hgb (11.0-16.0) g/dL Hct (34.0-47.0) % MCV (81.0-99.0) fL MCH (27.0-31.0) pg MCHC (33.0-37.0) g/dL RDW (11.5-14.5) % Plt Count (130-400) K/uL MPV (7.2-11.7) fL Neut % (Auto) (50.0-75.0) % Lymph % (Auto) (20.0-40.0) % [place] % (Auto) (0.0-10.0) % Eos % (Auto) (0.0-4.0) % Baso % (Auto) (0.0-2.0) % Neut # (1.8-7.0) K/uL Lymph # (1.0-4.3) K/uL [place] # (0.0-0.8) K/uL Eos # (0.0-0.7) K/uL Baso # (0.0-0.2) K/uL Neutrophils % (Manual) (50-75) % Band Neutrophils % (0-2) % Lymphocytes % (Manual) (20-40) % Monocytes % (Manual) (0-10) % Basophils % (Manual) (0-2) % Nucleated RBC % (0-0) % Platelet Estimate (NORMAL) RBC Morphology Sodium 130 L (132-148) mmol/L Potassium 3.5 L (3.6-5.2) mmol/L Chloride 97 L (98-107) mmol/L Carbon Dioxide 21 L (22-30) mmol/L Anion Gap 16 (10-20) BUN 4 L (7-17) mg/dL Creatinine 0.7 (0.7-1.2) mg/dL Est GFR ( Amer) > 60 Est GFR (Non-Af Amer) > 60 POC Glucose (mg/dL) 132 H 128 H (65-110) mg/dL Random Glucose 138 H (65-105) mg/dL Calcium 7.6 L (8.6-10.4) mg/dl Phosphorus 2.0 L (2.5-4.5) mg/dL Magnesium 1.5 L (1.6-2.3) mg/dL Total Bilirubin 2.9 H (0.2-1.3) mg/dL AST 679 H (14-36) U/L ALT 208 H (9-52) U/L Alkaline Phosphatase 96 (38-126) U/L Total Protein 6.1 L (6.3-8.3) g/dL Albumin 3.1 L (3.5-5.0) g/dL Globulin 3.0 (2.2-3.9) gm/dL Albumin/Globulin Ratio 1.0 (1.0-2.1) Triglycerides (0-149) mg/dL Cholesterol (0-199) mg/dL LDL Cholesterol Direct (0-129) mg/dL HDL Cholesterol (30-70) mg/dL Lipase 3662 H (23-300) U/L TSH 3rd Generation (0.46-4.68) mIU/L Anti-Mitochondrial Ab (Negative) Anti-Smooth Muscle Ab (Negative) H.influenzae Type B Ag (NEGATIVE) Mycoplasma pneumon IgM (NEGATIVE) N.meningitidis ACY/W135 (NEGATIVE) N.meningi B/E.coli K1 Ag (NEGATIVE) Group B Strep Antigen (NEGATIVE) S. pneumoniae Antigen (NEGATIVE) 03/14/17 03/14/17 03/14/17 Range/Units 15:34 14:35 12:17 WBC 9.8 (4.8-10.8) K/uL RBC 3.95 (3.80-5.20) Mil/uL Hgb 13.5 (11.0-16.0) g/dL Hct 39.6 (34.0-47.0) % MCV 100.3 H (81.0-99.0) fL MCH 34.1 H (27.0-31.0) pg MCHC 34.0 (33.0-37.0) g/dL RDW 13.5 (11.5-14.5) % Plt Count 92 L D (130-400) K/uL MPV 8.9 (7.2-11.7) fL Neut % (Auto) 89.1 H (50.0-75.0) % Lymph % (Auto) 7.4 L (20.0-40.0) % [place] % (Auto) 3.2 (0.0-10.0) % Eos % (Auto) 0.1 (0.0-4.0) % Baso % (Auto) 0.2 (0.0-2.0) % Neut # 8.7 H (1.8-7.0) K/uL Lymph # 0.7 L (1.0-4.3) K/uL [place] # 0.3 (0.0-0.8) K/uL Eos # 0.0 (0.0-0.7) K/uL Baso # 0.0 (0.0-0.2) K/uL Neutrophils % (Manual) 76 H (50-75) % Band Neutrophils % 16 H* (0-2) % Lymphocytes % (Manual) 4 L (20-40) % Monocytes % (Manual) 4 (0-10) % Basophils % (Manual) (0-2) % Nucleated RBC % (0-0) % Platelet Estimate Decreased L (NORMAL) RBC Morphology Normal Sodium (132-148) mmol/L Potassium (3.6-5.2) mmol/L Chloride (98-107) mmol/L Carbon Dioxide (22-30) mmol/L Anion Gap (10-20) BUN (7-17) mg/dL Creatinine (0.7-1.2) mg/dL Est GFR ( Amer) Est GFR (Non-Af Amer) POC Glucose (mg/dL) 147 H 141 H (65-110) mg/dL Random Glucose (65-105) mg/dL Calcium (8.6-10.4) mg/dl Phosphorus (2.5-4.5) mg/dL Magnesium (1.6-2.3) mg/dL Total Bilirubin (0.2-1.3) mg/dL AST (14-36) U/L ALT (9-52) U/L Alkaline Phosphatase (38-126) U/L Total Protein (6.3-8.3) g/dL Albumin (3.5-5.0) g/dL Globulin (2.2-3.9) gm/dL Albumin/Globulin Ratio (1.0-2.1) Triglycerides (0-149) mg/dL Cholesterol (0-199) mg/dL LDL Cholesterol Direct (0-129) mg/dL HDL Cholesterol (30-70) mg/dL Lipase (23-300) U/L TSH 3rd Generation (0.46-4.68) mIU/L Anti-Mitochondrial Ab (Negative) Anti-Smooth Muscle Ab (Negative) H.influenzae Type B Ag (NEGATIVE) Mycoplasma pneumon IgM (NEGATIVE) N.meningitidis ACY/W135 (NEGATIVE) N.meningi B/E.coli K1 Ag (NEGATIVE) Group B Strep Antigen (NEGATIVE) S. pneumoniae Antigen (NEGATIVE) 03/14/17 03/14/17 03/14/17 Range/Units 10:05 08:12 06:32 WBC (4.8-10.8) K/uL RBC (3.80-5.20) Mil/uL Hgb (11.0-16.0) g/dL Hct (34.0-47.0) % MCV (81.0-99.0) fL MCH (27.0-31.0) pg MCHC (33.0-37.0) g/dL RDW (11.5-14.5) % Plt Count (130-400) K/uL MPV (7.2-11.7) fL Neut % (Auto) (50.0-75.0) % Lymph % (Auto) (20.0-40.0) % [place] % (Auto) (0.0-10.0) % Eos % (Auto) (0.0-4.0) % Baso % (Auto) (0.0-2.0) % Neut # (1.8-7.0) K/uL Lymph # (1.0-4.3) K/uL [place] # (0.0-0.8) K/uL Eos # (0.0-0.7) K/uL Baso # (0.0-0.2) K/uL Neutrophils % (Manual) (50-75) % Band Neutrophils % (0-2) % Lymphocytes % (Manual) (20-40) % Monocytes % (Manual) (0-10) % Basophils % (Manual) (0-2) % Nucleated RBC % (0-0) % Platelet Estimate (NORMAL) RBC Morphology Sodium 139 (132-148) mmol/L Potassium 3.8 (3.6-5.2) mmol/L Chloride 102 (98-107) mmol/L Carbon Dioxide 22 (22-30) mmol/L Anion Gap 20 (10-20) BUN 6 L (7-17) mg/dL Creatinine 0.7 (0.7-1.2) mg/dL Est GFR ( Amer) > 60 Est GFR (Non-Af Amer) > 60 POC Glucose (mg/dL) 146 H 105 (65-110) mg/dL Random Glucose 108 H (65-105) mg/dL Calcium 8.2 L (8.6-10.4) mg/dl Phosphorus 1.7 L (2.5-4.5) mg/dL Magnesium 1.5 L (1.6-2.3) mg/dL Total Bilirubin 3.1 H (0.2-1.3) mg/dL AST 639 H (14-36) U/L ALT 211 H (9-52) U/L Alkaline Phosphatase 90 (38-126) U/L Total Protein 6.6 (6.3-8.3) g/dL Albumin 3.2 L (3.5-5.0) g/dL Globulin 3.3 (2.2-3.9) gm/dL Albumin/Globulin Ratio 1.0 (1.0-2.1) Triglycerides (0-149) mg/dL Cholesterol 206 H (0-199) mg/dL LDL Cholesterol Direct 82 (0-129) mg/dL HDL Cholesterol 51 (30-70) mg/dL Lipase 3227 H (23-300) U/L TSH 3rd Generation 3.81 (0.46-4.68) mIU/L Anti-Mitochondrial Ab (Negative) Anti-Smooth Muscle Ab (Negative) H.influenzae Type B Ag (NEGATIVE) Mycoplasma pneumon IgM (NEGATIVE) N.meningitidis ACY/W135 (NEGATIVE) N.meningi B/E.coli K1 Ag (NEGATIVE) Group B Strep Antigen (NEGATIVE) S. pneumoniae Antigen (NEGATIVE) 03/14/17 03/14/17 03/14/17 Range/Units 06:32 06:00 03:58 WBC 8.5 (4.8-10.8) K/uL RBC 4.37 (3.80-5.20) Mil/uL Hgb 14.9 (11.0-16.0) g/dL Hct 43.9 (34.0-47.0) % MCV 100.5 H (81.0-99.0) fL MCH 34.0 H (27.0-31.0) pg MCHC 33.8 (33.0-37.0) g/dL RDW 13.8 (11.5-14.5) % Plt Count 117 L D (130-400) K/uL MPV 8.7 (7.2-11.7) fL Neut % (Auto) 85.6 H (50.0-75.0) % Lymph % (Auto) 9.3 L (20.0-40.0) % [place] % (Auto) 4.6 (0.0-10.0) % Eos % (Auto) 0.2 (0.0-4.0) % Baso % (Auto) 0.3 (0.0-2.0) % Neut # 7.3 H (1.8-7.0) K/uL Lymph # 0.8 L (1.0-4.3) K/uL [place] # 0.4 (0.0-0.8) K/uL Eos # 0.0 (0.0-0.7) K/uL Baso # 0.0 (0.0-0.2) K/uL Neutrophils % (Manual) 82 H (50-75) % Band Neutrophils % 7 H (0-2) % Lymphocytes % (Manual) 6 L (20-40) % Monocytes % (Manual) 4 (0-10) % Basophils % (Manual) 1 (0-2) % Nucleated RBC % 1 H (0-0) % Platelet Estimate Slightly decreased L (NORMAL) RBC Morphology Normal Sodium (132-148) mmol/L Potassium (3.6-5.2) mmol/L Chloride (98-107) mmol/L Carbon Dioxide (22-30) mmol/L Anion Gap (10-20) BUN (7-17) mg/dL Creatinine (0.7-1.2) mg/dL Est GFR ( Amer) Est GFR (Non-Af Amer) POC Glucose (mg/dL) 126 H 107 (65-110) mg/dL Random Glucose (65-105) mg/dL Calcium (8.6-10.4) mg/dl Phosphorus (2.5-4.5) mg/dL Magnesium (1.6-2.3) mg/dL Total Bilirubin (0.2-1.3) mg/dL AST (14-36) U/L ALT (9-52) U/L Alkaline Phosphatase (38-126) U/L Total Protein (6.3-8.3) g/dL Albumin (3.5-5.0) g/dL Globulin (2.2-3.9) gm/dL Albumin/Globulin Ratio (1.0-2.1) Triglycerides (0-149) mg/dL Cholesterol (0-199) mg/dL LDL Cholesterol Direct (0-129) mg/dL HDL Cholesterol (30-70) mg/dL Lipase (23-300) U/L TSH 3rd Generation (0.46-4.68) mIU/L Anti-Mitochondrial Ab (Negative) Anti-Smooth Muscle Ab (Negative) H.influenzae Type B Ag (NEGATIVE) Mycoplasma pneumon IgM (NEGATIVE) N.meningitidis ACY/W135 (NEGATIVE) N.meningi B/E.coli K1 Ag (NEGATIVE) Group B Strep Antigen (NEGATIVE) S. pneumoniae Antigen (NEGATIVE) 03/14/17 03/13/17 03/13/17 Range/Units 01:56 23:58 22:09 WBC (4.8-10.8) K/uL RBC (3.80-5.20) Mil/uL Hgb (11.0-16.0) g/dL Hct (34.0-47.0) % MCV (81.0-99.0) fL MCH (27.0-31.0) pg MCHC (33.0-37.0) g/dL RDW (11.5-14.5) % Plt Count (130-400) K/uL MPV (7.2-11.7) fL Neut % (Auto) (50.0-75.0) % Lymph % (Auto) (20.0-40.0) % [place] % (Auto) (0.0-10.0) % Eos % (Auto) (0.0-4.0) % Baso % (Auto) (0.0-2.0) % Neut # (1.8-7.0) K/uL Lymph # (1.0-4.3) K/uL [place] # (0.0-0.8) K/uL Eos # (0.0-0.7) K/uL Baso # (0.0-0.2) K/uL Neutrophils % (Manual) (50-75) % Band Neutrophils % (0-2) % Lymphocytes % (Manual) (20-40) % Monocytes % (Manual) (0-10) % Basophils % (Manual) (0-2) % Nucleated RBC % (0-0) % Platelet Estimate (NORMAL) RBC Morphology Sodium (132-148) mmol/L Potassium (3.6-5.2) mmol/L Chloride (98-107) mmol/L Carbon Dioxide (22-30) mmol/L Anion Gap (10-20) BUN (7-17) mg/dL Creatinine (0.7-1.2) mg/dL Est GFR ( Amer) Est GFR (Non-Af Amer) POC Glucose (mg/dL) 121 H 118 H 98 (65-110) mg/dL Random Glucose (65-105) mg/dL Calcium (8.6-10.4) mg/dl Phosphorus (2.5-4.5) mg/dL Magnesium (1.6-2.3) mg/dL Total Bilirubin (0.2-1.3) mg/dL AST (14-36) U/L ALT (9-52) U/L Alkaline Phosphatase (38-126) U/L Total Protein (6.3-8.3) g/dL Albumin (3.5-5.0) g/dL Globulin (2.2-3.9) gm/dL Albumin/Globulin Ratio (1.0-2.1) Triglycerides (0-149) mg/dL Cholesterol (0-199) mg/dL LDL Cholesterol Direct (0-129) mg/dL HDL Cholesterol (30-70) mg/dL Lipase (23-300) U/L TSH 3rd Generation (0.46-4.68) mIU/L Anti-Mitochondrial Ab (Negative) Anti-Smooth Muscle Ab (Negative) H.influenzae Type B Ag (NEGATIVE) Mycoplasma pneumon IgM (NEGATIVE) N.meningitidis ACY/W135 (NEGATIVE) N.meningi B/E.coli K1 Ag (NEGATIVE) Group B Strep Antigen (NEGATIVE) S. pneumoniae Antigen (NEGATIVE) 03/13/17 03/13/17 03/13/17 Range/Units 20:09 19:17 19:17 WBC 9.7 (4.8-10.8) K/uL RBC 4.59 (3.80-5.20) Mil/uL Hgb 15.4 (11.0-16.0) g/dL Hct 45.8 (34.0-47.0) % MCV 99.8 H (81.0-99.0) fL MCH 33.6 H (27.0-31.0) pg MCHC 33.7 (33.0-37.0) g/dL RDW 13.4 (11.5-14.5) % Plt Count 165 (130-400) K/uL MPV 8.5 (7.2-11.7) fL Neut % (Auto) 86.6 H (50.0-75.0) % Lymph % (Auto) 8.0 L (20.0-40.0) % [place] % (Auto) 5.3 (0.0-10.0) % Eos % (Auto) 0.0 (0.0-4.0) % Baso % (Auto) 0.1 (0.0-2.0) % Neut # 8.4 H (1.8-7.0) K/uL Lymph # 0.8 L (1.0-4.3) K/uL [place] # 0.5 (0.0-0.8) K/uL Eos # 0.0 (0.0-0.7) K/uL Baso # 0.0 (0.0-0.2) K/uL Neutrophils % (Manual) 88 H (50-75) % Band Neutrophils % 1 (0-2) % Lymphocytes % (Manual) 7 L (20-40) % Monocytes % (Manual) 4 (0-10) % Basophils % (Manual) (0-2) % Nucleated RBC % (0-0) % Platelet Estimate Normal (NORMAL) RBC Morphology Normal Sodium 138 (132-148) mmol/L Potassium 3.6 (3.6-5.2) mmol/L Chloride 102 (98-107) mmol/L Carbon Dioxide 17 L (22-30) mmol/L Anion Gap 23 H (10-20) BUN 7 (7-17) mg/dL Creatinine 0.6 L (0.7-1.2) mg/dL Est GFR ( Amer) > 60 Est GFR (Non-Af Amer) > 60 POC Glucose (mg/dL) 103 (65-110) mg/dL Random Glucose 97 (65-105) mg/dL Calcium 8.1 L (8.6-10.4) mg/dl Phosphorus (2.5-4.5) mg/dL Magnesium (1.6-2.3) mg/dL Total Bilirubin 2.3 H (0.2-1.3) mg/dL AST 717 H D (14-36) U/L ALT 245 H (9-52) U/L Alkaline Phosphatase 105 (38-126) U/L Total Protein 7.0 (6.3-8.3) g/dL Albumin 3.6 (3.5-5.0) g/dL Globulin 3.5 (2.2-3.9) gm/dL Albumin/Globulin Ratio 1.0 (1.0-2.1) Triglycerides (0-149) mg/dL Cholesterol (0-199) mg/dL LDL Cholesterol Direct (0-129) mg/dL HDL Cholesterol (30-70) mg/dL Lipase (23-300) U/L TSH 3rd Generation (0.46-4.68) mIU/L Anti-Mitochondrial Ab (Negative) Anti-Smooth Muscle Ab (Negative) H.influenzae Type B Ag (NEGATIVE) Mycoplasma pneumon IgM (NEGATIVE) N.meningitidis ACY/W135 (NEGATIVE) N.meningi B/E.coli K1 Ag (NEGATIVE) Group B Strep Antigen (NEGATIVE) S. pneumoniae Antigen (NEGATIVE) 03/13/17 03/13/17 03/13/17 Range/Units 16:29 16:00 15:33 WBC (4.8-10.8) K/uL RBC (3.80-5.20) Mil/uL Hgb (11.0-16.0) g/dL Hct (34.0-47.0) % MCV (81.0-99.0) fL MCH (27.0-31.0) pg MCHC (33.0-37.0) g/dL RDW (11.5-14.5) % Plt Count (130-400) K/uL MPV (7.2-11.7) fL Neut % (Auto) (50.0-75.0) % Lymph % (Auto) (20.0-40.0) % [place] % (Auto) (0.0-10.0) % Eos % (Auto) (0.0-4.0) % Baso % (Auto) (0.0-2.0) % Neut # (1.8-7.0) K/uL Lymph # (1.0-4.3) K/uL [place] # (0.0-0.8) K/uL Eos # (0.0-0.7) K/uL Baso # (0.0-0.2) K/uL Neutrophils % (Manual) (50-75) % Band Neutrophils % (0-2) % Lymphocytes % (Manual) (20-40) % Monocytes % (Manual) (0-10) % Basophils % (Manual) (0-2) % Nucleated RBC % (0-0) % Platelet Estimate (NORMAL) RBC Morphology Sodium (132-148) mmol/L Potassium (3.6-5.2) mmol/L Chloride (98-107) mmol/L Carbon Dioxide (22-30) mmol/L Anion Gap (10-20) BUN (7-17) mg/dL Creatinine (0.7-1.2) mg/dL Est GFR ( Amer) Est GFR (Non-Af Amer) POC Glucose (mg/dL) (65-110) mg/dL Random Glucose (65-105) mg/dL Calcium (8.6-10.4) mg/dl Phosphorus (2.5-4.5) mg/dL Magnesium (1.6-2.3) mg/dL Total Bilirubin (0.2-1.3) mg/dL AST (14-36) U/L ALT (9-52) U/L Alkaline Phosphatase (38-126) U/L Total Protein (6.3-8.3) g/dL Albumin (3.5-5.0) g/dL Globulin (2.2-3.9) gm/dL Albumin/Globulin Ratio (1.0-2.1) Triglycerides (0-149) mg/dL Cholesterol (0-199) mg/dL LDL Cholesterol Direct (0-129) mg/dL HDL Cholesterol (30-70) mg/dL Lipase (23-300) U/L TSH 3rd Generation (0.46-4.68) mIU/L Anti-Mitochondrial Ab Negative (Negative) Anti-Smooth Muscle Ab Negative (Negative) H.influenzae Type B Ag Not required (NEGATIVE) Mycoplasma pneumon IgM Negative (NEGATIVE) N.meningitidis ACY/W135 Not required (NEGATIVE) N.meningi B/E.coli K1 Ag Not required (NEGATIVE) Group B Strep Antigen Not required (NEGATIVE) S. pneumoniae Antigen Negative (NEGATIVE) Laboratory Results - last 24 hr 03/13/17 03/13/17 03/13/17 15:33 16:00 16:29 WBC RBC Hgb Hct MCV MCH MCHC RDW Plt Count MPV Neut % (Auto) Lymph % (Auto) [place] % (Auto) Eos % (Auto) Baso % (Auto) Neut # Lymph # [place] # Eos # Baso # Neutrophils % (Manual) Band Neutrophils % Lymphocytes % (Manual) Monocytes % (Manual) Basophils % (Manual) Nucleated RBC % Platelet Estimate RBC Morphology Sodium Potassium Chloride Carbon Dioxide Anion Gap BUN Creatinine Est GFR ( Amer) Est GFR (Non-Af Amer) POC Glucose (mg/dL) Random Glucose Calcium Phosphorus Magnesium Total Bilirubin AST ALT Alkaline Phosphatase Total Protein Albumin Globulin Albumin/Globulin Ratio Triglycerides Cholesterol LDL Cholesterol Direct HDL Cholesterol Lipase TSH 3rd Generation Anti-Mitochondrial Ab Negative Anti-Smooth Muscle Ab Negative H.influenzae Type B Ag Not required Mycoplasma pneumon IgM Negative N.meningitidis ACY/W135 Not required N.meningi B/E.coli K1 Ag Not required Group B Strep Antigen Not required S. pneumoniae Antigen Negative 03/13/17 03/13/17 03/13/17 19:17 19:17 20:09 WBC 9.7 RBC 4.59 Hgb 15.4 Hct 45.8 MCV 99.8 H MCH 33.6 H MCHC 33.7 RDW 13.4 Plt Count 165 MPV 8.5 Neut % (Auto) 86.6 H Lymph % (Auto) 8.0 L [place] % (Auto) 5.3 Eos % (Auto) 0.0 Baso % (Auto) 0.1 Neut # 8.4 H Lymph # 0.8 L [place] # 0.5 Eos # 0.0 Baso # 0.0 Neutrophils % (Manual) 88 H Band Neutrophils % 1 Lymphocytes % (Manual) 7 L Monocytes % (Manual) 4 Basophils % (Manual) Nucleated RBC % Platelet Estimate Normal RBC Morphology Normal Sodium 138 Potassium 3.6 Chloride 102 Carbon Dioxide 17 L Anion Gap 23 H BUN 7 Creatinine 0.6 L Est GFR ( Amer) > 60 Est GFR (Non-Af Amer) > 60 POC Glucose (mg/dL) 103 Random Glucose 97 Calcium 8.1 L Phosphorus Magnesium Total Bilirubin 2.3 H AST 717 H D ALT 245 H Alkaline Phosphatase 105 Total Protein 7.0 Albumin 3.6 Globulin 3.5 Albumin/Globulin Ratio 1.0 Triglycerides Cholesterol LDL Cholesterol Direct HDL Cholesterol Lipase TSH 3rd Generation Anti-Mitochondrial Ab Anti-Smooth Muscle Ab H.influenzae Type B Ag Mycoplasma pneumon IgM N.meningitidis ACY/W135 N.meningi B/E.coli K1 Ag Group B Strep Antigen S. pneumoniae Antigen 03/13/17 03/13/17 03/14/17 22:09 23:58 01:56 WBC RBC Hgb Hct MCV MCH MCHC RDW Plt Count MPV Neut % (Auto) Lymph % (Auto) [place] % (Auto) Eos % (Auto) Baso % (Auto) Neut # Lymph # [place] # Eos # Baso # Neutrophils % (Manual) Band Neutrophils % Lymphocytes % (Manual) Monocytes % (Manual) Basophils % (Manual) Nucleated RBC % Platelet Estimate RBC Morphology Sodium Potassium Chloride Carbon Dioxide Anion Gap BUN Creatinine Est GFR ( Amer) Est GFR (Non-Af Amer) POC Glucose (mg/dL) 98 118 H 121 H Random Glucose Calcium Phosphorus Magnesium Total Bilirubin AST ALT Alkaline Phosphatase Total Protein Albumin Globulin Albumin/Globulin Ratio Triglycerides Cholesterol LDL Cholesterol Direct HDL Cholesterol Lipase TSH 3rd Generation Anti-Mitochondrial Ab Anti-Smooth Muscle Ab H.influenzae Type B Ag Mycoplasma pneumon IgM N.meningitidis ACY/W135 N.meningi B/E.coli K1 Ag Group B Strep Antigen S. pneumoniae Antigen 03/14/17 03/14/17 03/14/17 03:58 06:00 06:32 WBC 8.5 RBC 4.37 Hgb 14.9 Hct 43.9 MCV 100.5 H MCH 34.0 H MCHC 33.8 RDW 13.8 Plt Count 117 L D MPV 8.7 Neut % (Auto) 85.6 H Lymph % (Auto) 9.3 L [place] % (Auto) 4.6 Eos % (Auto) 0.2 Baso % (Auto) 0.3 Neut # 7.3 H Lymph # 0.8 L [place] # 0.4 Eos # 0.0 Baso # 0.0 Neutrophils % (Manual) 82 H Band Neutrophils % 7 H Lymphocytes % (Manual) 6 L Monocytes % (Manual) 4 Basophils % (Manual) 1 Nucleated RBC % 1 H Platelet Estimate Slightly decreased L RBC Morphology Normal Sodium Potassium Chloride Carbon Dioxide Anion Gap BUN Creatinine Est GFR ( Amer) Est GFR (Non-Af Amer) POC Glucose (mg/dL) 107 126 H Random Glucose Calcium Phosphorus Magnesium Total Bilirubin AST ALT Alkaline Phosphatase Total Protein Albumin Globulin Albumin/Globulin Ratio Triglycerides Cholesterol LDL Cholesterol Direct HDL Cholesterol Lipase TSH 3rd Generation Anti-Mitochondrial Ab Anti-Smooth Muscle Ab H.influenzae Type B Ag Mycoplasma pneumon IgM N.meningitidis ACY/W135 N.meningi B/E.coli K1 Ag Group B Strep Antigen S. pneumoniae Antigen 03/14/17 03/14/17 03/14/17 06:32 08:12 10:05 WBC RBC Hgb Hct MCV MCH MCHC RDW Plt Count MPV Neut % (Auto) Lymph % (Auto) [place] % (Auto) Eos % (Auto) Baso % (Auto) Neut # Lymph # [place] # Eos # Baso # Neutrophils % (Manual) Band Neutrophils % Lymphocytes % (Manual) Monocytes % (Manual) Basophils % (Manual) Nucleated RBC % Platelet Estimate RBC Morphology Sodium 139 Potassium 3.8 Chloride 102 Carbon Dioxide 22 Anion Gap 20 BUN 6 L Creatinine 0.7 Est GFR ( Amer) > 60 Est GFR (Non-Af Amer) > 60 POC Glucose (mg/dL) 105 146 H Random Glucose 108 H Calcium 8.2 L Phosphorus 1.7 L Magnesium 1.5 L Total Bilirubin 3.1 H AST 639 H ALT 211 H Alkaline Phosphatase 90 Total Protein 6.6 Albumin 3.2 L Globulin 3.3 Albumin/Globulin Ratio 1.0 Triglycerides Cholesterol 206 H LDL Cholesterol Direct 82 HDL Cholesterol 51 Lipase 3227 H TSH 3rd Generation 3.81 Anti-Mitochondrial Ab Anti-Smooth Muscle Ab H.influenzae Type B Ag Mycoplasma pneumon IgM N.meningitidis ACY/W135 N.meningi B/E.coli K1 Ag Group B Strep Antigen S. pneumoniae Antigen 03/14/17 03/14/17 03/14/17 12:17 14:35 15:34 WBC 9.8 RBC 3.95 Hgb 13.5 Hct 39.6 MCV 100.3 H MCH 34.1 H MCHC 34.0 RDW 13.5 Plt Count 92 L D MPV 8.9 Neut % (Auto) 89.1 H Lymph % (Auto) 7.4 L [place] % (Auto) 3.2 Eos % (Auto) 0.1 Baso % (Auto) 0.2 Neut # 8.7 H Lymph # 0.7 L [place] # 0.3 Eos # 0.0 Baso # 0.0 Neutrophils % (Manual) 76 H Band Neutrophils % 16 H* Lymphocytes % (Manual) 4 L Monocytes % (Manual) 4 Basophils % (Manual) Nucleated RBC % Platelet Estimate Decreased L RBC Morphology Normal Sodium Potassium Chloride Carbon Dioxide Anion Gap BUN Creatinine Est GFR ( Amer) Est GFR (Non-Af Amer) POC Glucose (mg/dL) 141 H 147 H Random Glucose Calcium Phosphorus Magnesium Total Bilirubin AST ALT Alkaline Phosphatase Total Protein Albumin Globulin Albumin/Globulin Ratio Triglycerides Cholesterol LDL Cholesterol Direct HDL Cholesterol Lipase TSH 3rd Generation Anti-Mitochondrial Ab Anti-Smooth Muscle Ab H.influenzae Type B Ag Mycoplasma pneumon IgM N.meningitidis ACY/W135 N.meningi B/E.coli K1 Ag Group B Strep Antigen S. pneumoniae Antigen 03/14/17 03/14/17 03/14/17 15:34 16:08 17:57 WBC RBC Hgb Hct MCV MCH MCHC RDW Plt Count MPV Neut % (Auto) Lymph % (Auto) [place] % (Auto) Eos % (Auto) Baso % (Auto) Neut # Lymph # [place] # Eos # Baso # Neutrophils % (Manual) Band Neutrophils % Lymphocytes % (Manual) Monocytes % (Manual) Basophils % (Manual) Nucleated RBC % Platelet Estimate RBC Morphology Sodium 130 L Potassium 3.5 L Chloride 97 L Carbon Dioxide 21 L Anion Gap 16 BUN 4 L Creatinine 0.7 Est GFR ( Amer) > 60 Est GFR (Non-Af Amer) > 60 POC Glucose (mg/dL) 128 H 132 H Random Glucose 138 H Calcium 7.6 L Phosphorus 2.0 L Magnesium 1.5 L Total Bilirubin 2.9 H AST 679 H ALT 208 H Alkaline Phosphatase 96 Total Protein 6.1 L Albumin 3.1 L Globulin 3.0 Albumin/Globulin Ratio 1.0 Triglycerides Cholesterol LDL Cholesterol Direct HDL Cholesterol Lipase 3662 H TSH 3rd Generation Anti-Mitochondrial Ab Anti-Smooth Muscle Ab H.influenzae Type B Ag Mycoplasma pneumon IgM N.meningitidis [id number]/W135 N.meningi B/E.coli K1 Ag Group B Strep Antigen S. pneumoniae Antigen Critical Care Progress Note - Nutrition Nutrition: Nutrition Category Date Time Status Liquid Diet [DIET] Diets 03/14/17 Breakfast Active Attending/Attestation - Attestation I have personally seen and examined this patient.: Yes I have fully participated in the care of the patient.: Yes I have reviewed all pertinent clinical information: Yes Notes (Text): 03/14/17 19:10 Today: , March 14, 2017 The Patient was seen and examined at the bedside, Medical records reviewed, and management issues were discussed and formulated with the house staff. I have reviewed all the relevant clinical, laboratory, hemodynamic, radiographic data and medications Events reviewed Pain issues, skin care, head of the bed elevation, glycemic control were addressed. I concur with resident's assessment and plan of care as transcribed in Dr. Thomas note.
[2017-03-14 15:48] LABS: CHLORIDE 97 mmol/L (98-107); POTASSIUM 3.5 mmol/L (3.6-5.2); SODIUM 130 mmol/L (132-148)
[2017-03-14 15:49] LABS: BASO % 0.2 % (0.0-2.0); EOS % 0.1 % (0.0-4.0); HEMATOCRIT 39.6 % (34.0-47.0); LYMPH # 0.7 K/uL (1.0-4.3); LYMPH % 7.4 % (20.0-40.0); MEAN CELL VOLUME 100.3 fL (81.0-99.0); MEAN CORPUSCULAR HEMOGLOBIN 34.1 pg (27.0-31.0); MEAN PLATELET VOLUME 8.9 fL (7.2-11.7); MONO # 0.3 K/uL (0.0-0.8); MONO % 3.2 % (0.0-10.0); NRBC % 0.3 % (0.0-2.0); RED CELL DISTRIBUTION WIDTH 13.5 % (11.5-14.5); WHITE BLOOD COUNT 9.8 K/uL (4.8-10.8)
[2017-03-14 15:50] LABS: ALKALINE PHOSPHATASE 96 U/L (38-126); ALT/SGPT 208 U/L (9-52); AST/SGOT 679 U/L (14-36); BILIRUBIN,TOTAL 2.9 mg/dL (0.2-1.3); BLOOD UREA NITROGEN 4 mg/dL (7-17); CARBON DIOXIDE 21 mmol/L (22-30); GFR AFRICAN-AMERICAN > 60; TOTAL PROTEIN 6.1 g/dL (6.3-8.3)
[2017-03-14 15:51] LABS: CALCIUM 7.6 mg/dl (8.6-10.4); GLUCOSE,RANDOM 138 mg/dL (65-105); MAGNESIUM 1.5 mg/dL (1.6-2.3); PLATELET COUNT 92 K/uL (130-400)
[2017-03-14 16:14] LABS: NEUTROPHIL 76 % (50-75); TOTAL CELLS COUNTED 100
[2017-03-14] MEDS ORDERED: Potassium Chloride 20 mEq/15 ml LIQ UD PO ONE ×2 (17:00→17:50)
[2017-03-14] MEDS: Insulin Human Regular 100 UNIT in Sodium Chloride 0.9% 99 ML IV SCH (19:39)
--- NOTE | 2017-03-14 20:44 | PN ---
LOCATION: ICU room 6. SUBJECTIVE: This is a 31-year-old female with recent admission for acute pancreatitis related to recent alcoholic intoxication on the background of chronic alcoholism and undergoing GI workup to exclude any underlying cholelithiasis as noted thereof. 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 LABORATORY DATA: Her latest chemistry showed a BUN of 4, sodium 130, potassium 3.5, chloride 97, CO2 of 21, glucose 138 and creatinine 0.7. Her glucose levels have ranged from 128/147 mg/dL. The repeat lipase level is 3662 as noted, and she continues to have elevated liver transaminases as expected. Her repeat triglyceride levels are still pending at this time as noted. The previous triglyceides levels were 1727 yesterday as noted. PLAN: So at this time, we will continue the vigorous IV hydration as ordered and also continue the insulin drip infusion as given which will help improve lipoprotein lipase activity as noted. We will obtain serial chemistries and supplement accordingly as needed. We will also send out a lipid fractionation to exclude any underlying familial combined dyslipidemia. Would highly recommend omega-3 fatty acids or fish oils when her oral intake is advanced accordingly. We will also recommend fenofibrate given as 160 mg once daily at bedtime as ordered. We will titrate incrementally as indicated to optimize metabolic control. We will follow. Asiya Sung MD
--- NOTE | 2017-03-14 21:16 | CARD ---
APPROVED REPORT EKG Measurement Heart [id number] <Conclusion> Sinus tachycardia Biatrial enlargement Abnormal ECG
[2017-03-15] MEDS: Lactated Ringer's 1,000 ML IV SCH ×5 (00:50→20:43)
[2017-03-15] MEDS: Dextrose 5%/0.9% NS 1,000 ML IV SCH (04:00)
[2017-03-15 06:18] LABS: BASO % 0.2 % (0.0-2.0); EOS % 0.2 % (0.0-4.0); HEMATOCRIT 33.6 % (34.0-47.0); LYMPH # 1.2 K/uL (1.0-4.3); LYMPH % 12.1 % (20.0-40.0); MEAN CELL VOLUME 99.4 fL (81.0-99.0); MEAN CORPUSCULAR HEMOGLOBIN 34.3 pg (27.0-31.0); MEAN CORPUSCULAR HGB CONC 34.5 g/dL (33.0-37.0); MEAN PLATELET VOLUME 9.6 fL (7.2-11.7); MONO # 0.5 K/uL (0.0-0.8); NRBC % 0.4 % (0.0-2.0); RED CELL DISTRIBUTION WIDTH 13.7 % (11.5-14.5); WHITE BLOOD COUNT 9.7 K/uL (4.8-10.8)
[2017-03-15 06:26] LABS: CHLORIDE 102 mmol/L (98-107); POTASSIUM 3.8 mmol/L (3.6-5.2); SODIUM 134 mmol/L (132-148)
[2017-03-15 06:28] LABS: GFR AFRICAN-AMERICAN > 60
[2017-03-15 06:29] LABS: ALB/GLOB RATIO 0.9 (1.0-2.1); ALKALINE PHOSPHATASE 79 U/L (38-126); ALT/SGPT 164 U/L (9-52); AST/SGOT 426 U/L (14-36); BLOOD UREA NITROGEN 3 mg/dL (7-17); CALCIUM 7.9 mg/dl (8.6-10.4); CARBON DIOXIDE 23 mmol/L (22-30); GLUCOSE,RANDOM 107 mg/dL (65-105); PHOSPHOROUS 1.3 mg/dL (2.5-4.5); TOTAL PROTEIN 5.1 g/dL (6.3-8.3)
[2017-03-15 06:30] LABS: MAGNESIUM 1.8 mg/dL (1.6-2.3)
[2017-03-15 06:58] LABS: THYROID STIMULATING HORMONE 2.44 mIU/L (0.46-4.68)
--- NOTE | 2017-03-15 08:13 | CP.PCM.PN ---
<Reji Marquez - Last Filed: 03/15/17 10:46> Subjective - Date & Time of Evaluation Date of Evaluation: 03/15/17 Time of Evaluation: 08:00 - Subjective Subjective: PGY4 GI Follow-up Pt seen and examined bedside No complaints Abd pain still present but slightly improving tolerating liquid diet Denies any BM ROS: 10 point ROS conducted, neg other than above Objective - Vital Signs/Intake and Output Vital Signs (last 24 hours): Temp Pulse Resp BP Pulse Ox 98 F 128 H 17 132/81 99 03/15/17 03:56 03/15/17 06:00 03/15/17 06:00 03/15/17 06:00 03/15/17 06:00 Intake and Output: 03/15/17 03/15/17 06:59 18:59 Intake Total 2374 Output Total 500 Balance 1874 - Medications Medications: Current Medications Amlodipine Besylate (Norvasc) 5 mg PO DAILY [facility] Last Admin: 03/14/17 10:37 Dose: 5 mg Famotidine (Pepcid) 20 mg IVP Q12 [facility] Last Admin: 03/14/17 21:11 Dose: 20 mg Gabapentin (Neurontin) 100 mg PO TID [facility] Last Admin: 03/14/17 17:21 Dose: 100 mg Heparin Sodium (Porcine) (Heparin) 5,000 units SC Q8 [facility] Last Admin: 03/15/17 05:39 Dose: 5,000 units Hydromorphone HCl (Dilaudid) 1 mg IVP Q4H PRN PRN Reason: Pain, severe (8-10) Last Admin: 03/14/17 22:37 Dose: 1 mg Insulin Human Regular 100 unit (/ Sodium Chloride) 100 mls @ 2 mls/hr IV .Q24H [facility] Last Admin: 03/14/17 19:39 Dose: 2 mls/hr Lactated Ringer's (Lactated Ringer's) 1,000 mls @ 100 mls/hr IV .Q10H [facility] Last Admin: 03/15/17 05:46 Dose: Not Given Dextrose/Sodium Chloride (Dextrose 5%/0.9% Ns 1000 Ml) 1,000 mls @ 100 mls/hr IV .Q10H [facility] Last Admin: 03/15/17 04:00 Dose: 100 mls/hr Lorazepam (Ativan) 1 mg IVP Q4H PRN PRN Reason: Symptoms of alcohol withdrawl Polyethylene Glycol (Miralax) 17 gm PO DAILY PRN PRN Reason: Constipation Last Admin: 03/14/17 09:20 Dose: 17 gm Trazodone HCl (Desyrel) 50 mg PO HS [facility] Last Admin: 03/14/17 21:12 Dose: 50 mg - Labs Labs: 03/15/17 06:04 03/15/17 06:04 PT 12.7 SECONDS (9.7-12.2) H 03/13/17 14:06 INR 1.1 03/13/17 14:06 - Constitutional Appears: Well, No Acute Distress - Head Exam Head Exam: ATRAUMATIC, NORMOCEPHALIC - Eye Exam Eye Exam: Normal appearance - ENT Exam ENT Exam: Mucous Membranes Moist - Respiratory Exam Respiratory Exam: Clear to Ausculation Bilateral, NORMAL BREATHING PATTERN. absent: Rales, Rhonchi, Wheezes, Respiratory Distress - Cardiovascular Exam Cardiovascular Exam: REGULAR RHYTHM, +S1, +S2 - GI/Abdominal Exam GI & Abdominal Exam: Tenderness (epigastric and LLQ tenderness), Normal Bowel Sounds. absent: Guarding, Rigid, Organomegaly - Extremities Exam Extremities Exam: absent: Joint Swelling, Pedal Edema - Neurological Exam Neurological Exam: Alert, Awake, Oriented x3 - Psychiatric Exam Psychiatric exam: Normal Affect, Normal Mood - Skin Skin Exam: Dry, Intact, Normal Color, Warm Assessment and Plan - Assessment and Plan (Free Text) Assessment: 31 year old female with history of recent URI presenting with abdominal pain. Active treatment of acute moderate pancreatitis and transaminitis. Etiology likely 2/2 hypertrigly vs EtOH; r/o autoimmune, gallstone unlikely based on Abd U/S 1. Acute Pancreatitis, likely 2/2 Etoh vs TG 2. Elevated LFT 2/2 to the above 3. Hypertriglyceremia Plan: >multifactorial- alcohol, hypertriglyceridemia >TG levels improving >hematocrit and BUN improving >advance to diet as tolerated >continue insulin therapy, Gemfibrozil as per endo >pending APAP, UDS >alcohol withdrawal protocol >counselled on alcohol cessation >close monitoring of clinical status for signs of decompensation >will follow D/W Dr. Clarke <Cristian Clarke - Last Filed: 03/15/17 12:29> Objective - Vital Signs/Intake and Output Vital Signs (last 24 hours): Temp Pulse Resp BP Pulse Ox 98.2 F 124 H 18 126/91 H 100 03/15/17 08:00 03/15/17 08:00 03/15/17 08:00 03/15/17 08:00 03/15/17 08:00 Intake and Output: 03/15/17 03/15/17 06:59 18:59 Intake Total 2374 404 Output Total 500 Balance 1874 404 - Medications Medications: Current Medications Amlodipine Besylate (Norvasc) 5 mg PO DAILY [facility] Last Admin: 03/15/17 10:17 Dose: 5 mg Famotidine (Pepcid) 20 mg IVP Q12 [facility] Last Admin: 03/15/17 10: Dose: 20 mg Gabapentin (Neurontin) 100 mg PO TID [facility] Last Admin: 03/15/17 10:17 Dose: 100 mg Heparin Sodium (Porcine) (Heparin) 5,000 units SC Q8 [facility] Last Admin: 03/15/17 05:39 Dose: 5,000 units Hydromorphone HCl (Dilaudid) 1 mg IVP Q4H PRN PRN Reason: Pain, severe (8-10) Last Admin: 03/15/17 08:39 Dose: 1 mg Lactated Ringer's (Lactated Ringer's) 1,000 mls @ 100 mls/hr IV .Q10H [facility] Last Admin: 03/15/17 11:00 Dose: 100 mls/hr Lorazepam (Ativan) 1 mg IVP Q4H PRN PRN Reason: Symptoms of alcohol withdrawl Polyethylene Glycol (Miralax) 17 gm PO DAILY PRN PRN Reason: Constipation Last Admin: 03/14/17 09:20 Dose: 17 gm Trazodone HCl (Desyrel) 50 mg PO HS [facility] Last Admin: 03/14/17 21:12 Dose: 50 mg - Labs Labs: 03/15/17 06:04 03/15/17 06:04 PT 12.7 SECONDS (9.7-12.2) H 03/13/17 14:06 INR 1.1 03/13/17 14:06 Attending/Attestation - Attestation I have personally seen and examined this patient.: Yes I have fully participated in the care of the patient.: Yes I have reviewed all pertinent clinical information, including history, physical exam and plan: Yes Notes (Text): 03/15/17 12:27 31 year old female with h/o etoh abuse admitted with acute pancreatitis. 1. Acute pancreatitis 2. Alcoholic hepatitis 3. Hypertriglyceridemia Plan: -received aggressive IV hydration with LR -Hct / Bun downtrending -she continues to have abdominal pain and tachycardia though -liquid diet as tolerated -no organ failure or signs of local complications -triglycerides have improved with IV insulin -continue pain control -continue hydration -therapy of hypertriglyceridemia per endocrinology -will follow
--- NOTE | 2017-03-15 08:20 | CP.PCM.PN ---
Subjective - Date & Time of Evaluation Date of Evaluation: 03/15/17 Time of Evaluation: 07:00 - Subjective Subjective: General Surgery Dr. Snyder Pt S&E @bedside. NAEO. pain improving. pt reports decreased distention. Pt denies F/C, N/V, D/C. tolerating CLD. Objective - Vital Signs/Intake and Output Vital Signs (last 24 hours): Temp Pulse Resp BP Pulse Ox 98 F 128 H 17 132/81 99 03/15/17 03:56 03/15/17 06:00 03/15/17 06:00 03/15/17 06:00 03/15/17 06:00 Intake and Output: 03/15/17 03/15/17 06:59 18:59 Intake Total 2374 Output Total 500 Balance 1874 - Medications Medications: Current Medications Amlodipine Besylate (Norvasc) 5 mg PO DAILY [facility] Last Admin: 03/14/17 10:37 Dose: 5 mg Famotidine (Pepcid) 20 mg IVP Q12 [facility] Last Admin: 03/14/17 21:11 Dose: 20 mg Gabapentin (Neurontin) 100 mg PO TID [facility] Last Admin: 03/14/17 17:21 Dose: 100 mg Heparin Sodium (Porcine) (Heparin) 5,000 units SC Q8 [facility] Last Admin: 03/15/17 05:39 Dose: 5,000 units Hydromorphone HCl (Dilaudid) 1 mg IVP Q4H PRN PRN Reason: Pain, severe (8-10) Last Admin: 03/14/17 22:37 Dose: 1 mg Insulin Human Regular 100 unit (/ Sodium Chloride) 100 mls @ 2 mls/hr IV .Q24H [facility] Last Admin: 03/14/17 19:39 Dose: 2 mls/hr Lactated Ringer's (Lactated Ringer's) 1,000 mls @ 100 mls/hr IV .Q10H [facility] Last Admin: 03/15/17 05:46 Dose: Not Given Dextrose/Sodium Chloride (Dextrose 5%/0.9% Ns 1000 Ml) 1,000 mls @ 100 mls/hr IV .Q10H [facility] Last Admin: 03/15/17 04:00 Dose: 100 mls/hr Lorazepam (Ativan) 1 mg IVP Q4H PRN PRN Reason: Symptoms of alcohol withdrawl Polyethylene Glycol (Miralax) 17 gm PO DAILY PRN PRN Reason: Constipation Last Admin: 03/14/17 09:20 Dose: 17 gm Trazodone HCl (Desyrel) 50 mg PO HS [facility] Last Admin: 03/14/17 21:12 Dose: 50 mg - Labs Labs: 03/15/17 06:04 03/15/17 06:04 PT 12.7 SECONDS (9.7-12.2) H 03/13/17 14:06 INR 1.1 03/13/17 14:06 - Constitutional Appears: Non-toxic, No Acute Distress - Head Exam Head Exam: NORMAL INSPECTION - Eye Exam Eye Exam: Normal appearance - ENT Exam ENT Exam: Mucous Membranes Moist - Respiratory Exam Respiratory Exam: NORMAL BREATHING PATTERN. absent: Accessory Muscle Use, Respiratory Distress - Cardiovascular Exam Cardiovascular Exam: Tachycardia. absent: Bradycardia - GI/Abdominal Exam GI & Abdominal Exam: Distended (moderately), Firm, Tenderness (TTP epigastric/ LUQ). absent: Guarding, Rebound - Extremities Exam Extremities Exam: Normal Inspection - Neurological Exam Neurological Exam: Alert, Awake, Oriented x3 - Psychiatric Exam Psychiatric exam: Normal Affect, Normal Mood - Skin Skin Exam: Dry, Intact, Normal Color, Warm Assessment and Plan - Assessment and Plan (Free Text) Assessment: 31 y/o F w/ pancreatitis likely 2/2 EtOH ingestion - Labs improving - continue to monitor - cont aggressive IVF resuscitation - cont pain management - monitor vitals - f/u GI recs - cont medical management per primary/ICU - encourage OOB to chair/IS use - no surgical intervention at this time. Will follow peripherally Pt discussed w/ Dr. Claudio Howell DO PGY2
--- NOTE | 2017-03-15 12:47 | CP.CCUPN ---
<Dalton Thomas E - Last Filed: 03/15/17 13:23> CCU Subjective - Physician Review Subjective (Free Text): Patient was seen and examined at bedside. Patient reports that she feels much better and her symptoms are improving. Patient denies nausea, vomiting, fever , chills, chest pain, SOB, palpitations, dizziness and Bowel movement. Patient is able to tolerate clear liquids and continues to tolerate abdominal palpation on examination and less distended. CCU Objective - Vital Signs / Intake & Output Intake and Output (Last 8hrs): Intake & Output 03/14/17 03/15/17 03/15/17 22:59 06:59 14:59 Intake Total 1878.5 1616 404 Output Total 0 500 Balance 1878.5 1116 404 Weight 161 lb Intake: Intake, IV Amount 1678.5 1616 404 Left Distal Port Forearm 700 800 200 Left Forearm 8 Left Proximal Port 800 800 200 Forearm Right Wrist 170.5 16 4 Oral 200 Output: Urine 0 500 Urine, Voided 0 500 Other: # Bowel Movements 0 - Physical Exam Head: Positive for: Atraumatic, Normocephalic Extroacular Muscles: Positive for: EOMI Mouth: Positive for: Dry Respiratory/Chest: Positive for: Clear to Auscultation. Negative for: Respiratory Distress, Accessory Muscle Use Cardiovascular: Positive for: Regular Rate and Rhythm, Normal S1, S2, Tachycardic Abdomen: Positive for: Tenderness, Distention, Other (Moderately diminished bowel sounds ). Negative for: Peritoneal Signs Upper Extremity: Positive for: Normal Inspection Lower Extremity: Positive for: Normal Inspection Neurological: Positive for: GCS=15, Speech Normal Skin: Positive for: Normal Color Psychiatric: Positive for: Alert, Oriented x 3 - Medications Active Medications: Active Medications Generic Name Dose Route Start Last Admin Trade Name Freq PRN Reason Stop Dose Admin Amlodipine Besylate 5 mg 03/14/17 10:30 03/15/17 10:17 Norvasc PO 5 mg DAILY MONIKA Administration Famotidine 20 mg 03/13/17 22:00 03/15/17 10:17 Pepcid IVP 20 mg Q12 MONIKA Administration Gabapentin 100 mg 03/14/17 14:00 03/15/17 10:17 Neurontin PO 100 mg TID MONIKA Administration Heparin Sodium (Porcine) 5,000 units 03/14/17 14:00 03/15/17 05:39 Heparin SC 5,000 units Q8 MONIKA Administration Hydromorphone HCl 1 mg 03/13/17 14:29 03/15/17 08:39 Dilaudid IVP 1 mg Q4H PRN Administration Pain, severe (8-10) Lactated Ringer's 1,000 mls @ 100 mls/hr 03/13/17 22:12 03/15/17 11:00 Lactated Ringer's IV 100 mls/hr .Q10H MONIKA Administration Lorazepam 1 mg 03/13/17 19:14 Ativan IVP Q4H PRN Symptoms of alcohol withdrawl Polyethylene Glycol 17 gm 03/14/17 08:05 03/14/17 09:20 Miralax PO 17 gm DAILY PRN Administration Constipation Trazodone HCl 50 mg 03/14/17 22:00 03/14/17 21:12 Desyrel PO 50 mg HS MONIKA Administration - Patient Studies Lab Studies: Microbiology Studies 03/13/17 Unknown MRSA Culture (Admit) - Final Naris MRSA NOT DETECTED Lab Studies 03/15/17 03/15/17 03/15/17 Range/Units 11:29 08:10 06:04 WBC (4.8-10.8) K/uL RBC (3.80-5.20) Mil/uL Hgb (11.0-16.0) g/dL Hct (34.0-47.0) % MCV (81.0-99.0) fL MCH (27.0-31.0) pg MCHC (33.0-37.0) g/dL RDW (11.5-14.5) % Plt Count (130-400) K/uL MPV (7.2-11.7) fL Neut % (Auto) (50.0-75.0) % Lymph % (Auto) (20.0-40.0) % [place] % (Auto) (0.0-10.0) % Eos % (Auto) (0.0-4.0) % Baso % (Auto) (0.0-2.0) % Neut # (1.8-7.0) K/uL Lymph # (1.0-4.3) K/uL [place] # (0.0-0.8) K/uL Eos # (0.0-0.7) K/uL Baso # (0.0-0.2) K/uL Neutrophils % (Manual) (50-75) % Band Neutrophils % (0-2) % Lymphocytes % (Manual) (20-40) % Monocytes % (Manual) (0-10) % Platelet Estimate (NORMAL) RBC Morphology Sodium 134 (132-148) mmol/L Potassium 3.8 (3.6-5.2) mmol/L Chloride 102 (98-107) mmol/L Carbon Dioxide 23 (22-30) mmol/L Anion Gap 13 (10-20) BUN 3 L (7-17) mg/dL Creatinine 0.6 L (0.7-1.2) mg/dL Est GFR ( Amer) > 60 Est GFR (Non-Af Amer) > 60 POC Glucose (mg/dL) 98 103 (65-110) mg/dL Random Glucose 107 H (65-105) mg/dL Calcium 7.9 L (8.6-10.4) mg/dl Phosphorus 1.3 L (2.5-4.5) mg/dL Magnesium 1.8 (1.6-2.3) mg/dL Total Bilirubin 2.0 H (0.2-1.3) mg/dL AST 426 H D (14-36) U/L ALT 164 H D (9-52) U/L Alkaline Phosphatase 79 (38-126) U/L Total Protein 5.1 L (6.3-8.3) g/dL Albumin 2.4 L D (3.5-5.0) g/dL Globulin 2.7 (2.2-3.9) gm/dL Albumin/Globulin Ratio 0.9 L (1.0-2.1) Triglycerides 152 H D (0-149) mg/dL Lipase 2405 H (23-300) U/L TSH 3rd Generation 2.44 (0.46-4.68) mIU/L ISABEL 6 Profile (NEGATIVE) Anti-Mitochondrial Ab (Negative) Anti-Smooth Muscle Ab (Negative) 03/15/17 03/15/17 03/15/17 Range/Units 06:04 05:41 04:04 WBC 9.7 (4.8-10.8) K/uL RBC 3.38 L (3.80-5.20) Mil/uL Hgb 11.6 (11.0-16.0) g/dL Hct 33.6 L (34.0-47.0) % MCV 99.4 H (81.0-99.0) fL MCH 34.3 H (27.0-31.0) pg MCHC 34.5 (33.0-37.0) g/dL RDW 13.7 (11.5-14.5) % Plt Count 77 L (130-400) K/uL MPV 9.6 (7.2-11.7) fL Neut % (Auto) 82.5 H (50.0-75.0) % Lymph % (Auto) 12.1 L (20.0-40.0) % [place] % (Auto) 5.0 (0.0-10.0) % Eos % (Auto) 0.2 (0.0-4.0) % Baso % (Auto) 0.2 (0.0-2.0) % Neut # 8.0 H (1.8-7.0) K/uL Lymph # 1.2 (1.0-4.3) K/uL [place] # 0.5 (0.0-0.8) K/uL Eos # 0.0 (0.0-0.7) K/uL Baso # 0.0 (0.0-0.2) K/uL Neutrophils % (Manual) (50-75) % Band Neutrophils % (0-2) % Lymphocytes % (Manual) (20-40) % Monocytes % (Manual) (0-10) % Platelet Estimate (NORMAL) RBC Morphology Sodium (132-148) mmol/L Potassium (3.6-5.2) mmol/L Chloride (98-107) mmol/L Carbon Dioxide (22-30) mmol/L Anion Gap (10-20) BUN (7-17) mg/dL Creatinine (0.7-1.2) mg/dL Est GFR ( Amer) Est GFR (Non-Af Amer) POC Glucose (mg/dL) 126 H 93 (65-110) mg/dL Random Glucose (65-105) mg/dL Calcium (8.6-10.4) mg/dl Phosphorus (2.5-4.5) mg/dL Magnesium (1.6-2.3) mg/dL Total Bilirubin (0.2-1.3) mg/dL AST (14-36) U/L ALT (9-52) U/L Alkaline Phosphatase (38-126) U/L Total Protein (6.3-8.3) g/dL Albumin (3.5-5.0) g/dL Globulin (2.2-3.9) gm/dL Albumin/Globulin Ratio (1.0-2.1) Triglycerides (0-149) mg/dL Lipase (23-300) U/L TSH 3rd Generation (0.46-4.68) mIU/L ISABEL 6 Profile (NEGATIVE) Anti-Mitochondrial Ab (Negative) Anti-Smooth Muscle Ab (Negative) 03/15/17 03/15/17 03/14/17 Range/Units 02:23 00:05 22:05 WBC (4.8-10.8) K/uL RBC (3.80-5.20) Mil/uL Hgb (11.0-16.0) g/dL Hct (34.0-47.0) % MCV (81.0-99.0) fL MCH (27.0-31.0) pg MCHC (33.0-37.0) g/dL RDW (11.5-14.5) % Plt Count (130-400) K/uL MPV (7.2-11.7) fL Neut % (Auto) (50.0-75.0) % Lymph % (Auto) (20.0-40.0) % [place] % (Auto) (0.0-10.0) % Eos % (Auto) (0.0-4.0) % Baso % (Auto) (0.0-2.0) % Neut # (1.8-7.0) K/uL Lymph # (1.0-4.3) K/uL [place] # (0.0-0.8) K/uL Eos # (0.0-0.7) K/uL Baso # (0.0-0.2) K/uL Neutrophils % (Manual) (50-75) % Band Neutrophils % (0-2) % Lymphocytes % (Manual) (20-40) % Monocytes % (Manual) (0-10) % Platelet Estimate (NORMAL) RBC Morphology Sodium (132-148) mmol/L Potassium (3.6-5.2) mmol/L Chloride (98-107) mmol/L Carbon Dioxide (22-30) mmol/L Anion Gap (10-20) BUN (7-17) mg/dL Creatinine (0.7-1.2) mg/dL Est GFR ( Amer) Est GFR (Non-Af Amer) POC Glucose (mg/dL) 108 117 H 123 H (65-110) mg/dL Random Glucose (65-105) mg/dL Calcium (8.6-10.4) mg/dl Phosphorus (2.5-4.5) mg/dL Magnesium (1.6-2.3) mg/dL Total Bilirubin (0.2-1.3) mg/dL AST (14-36) U/L ALT (9-52) U/L Alkaline Phosphatase (38-126) U/L Total Protein (6.3-8.3) g/dL Albumin (3.5-5.0) g/dL Globulin (2.2-3.9) gm/dL Albumin/Globulin Ratio (1.0-2.1) Triglycerides (0-149) mg/dL Lipase (23-300) U/L TSH 3rd Generation (0.46-4.68) mIU/L ISABEL 6 Profile (NEGATIVE) Anti-Mitochondrial Ab (Negative) Anti-Smooth Muscle Ab (Negative) 03/14/17 03/14/17 03/14/17 Range/Units 20:18 17:57 16:08 WBC (4.8-10.8) K/uL RBC (3.80-5.20) Mil/uL Hgb (11.0-16.0) g/dL Hct (34.0-47.0) % MCV (81.0-99.0) fL MCH (27.0-31.0) pg MCHC (33.0-37.0) g/dL RDW (11.5-14.5) % Plt Count (130-400) K/uL MPV (7.2-11.7) fL Neut % (Auto) (50.0-75.0) % Lymph % (Auto) (20.0-40.0) % [place] % (Auto) (0.0-10.0) % Eos % (Auto) (0.0-4.0) % Baso % (Auto) (0.0-2.0) % Neut # (1.8-7.0) K/uL Lymph # (1.0-4.3) K/uL [place] # (0.0-0.8) K/uL Eos # (0.0-0.7) K/uL Baso # (0.0-0.2) K/uL Neutrophils % (Manual) (50-75) % Band Neutrophils % (0-2) % Lymphocytes % (Manual) (20-40) % Monocytes % (Manual) (0-10) % Platelet Estimate (NORMAL) RBC Morphology Sodium (132-148) mmol/L Potassium (3.6-5.2) mmol/L Chloride (98-107) mmol/L Carbon Dioxide (22-30) mmol/L Anion Gap (10-20) BUN (7-17) mg/dL Creatinine (0.7-1.2) mg/dL Est GFR ( Amer) Est GFR (Non-Af Amer) POC Glucose (mg/dL) 128 H 132 H 128 H (65-110) mg/dL Random Glucose (65-105) mg/dL Calcium (8.6-10.4) mg/dl Phosphorus (2.5-4.5) mg/dL Magnesium (1.6-2.3) mg/dL Total Bilirubin (0.2-1.3) mg/dL AST (14-36) U/L ALT (9-52) U/L Alkaline Phosphatase (38-126) U/L Total Protein (6.3-8.3) g/dL Albumin (3.5-5.0) g/dL Globulin (2.2-3.9) gm/dL Albumin/Globulin Ratio (1.0-2.1) Triglycerides (0-149) mg/dL Lipase (23-300) U/L TSH 3rd Generation (0.46-4.68) mIU/L ISABEL 6 Profile (NEGATIVE) Anti-Mitochondrial Ab (Negative) Anti-Smooth Muscle Ab (Negative) 03/14/17 03/14/17 03/14/17 Range/Units 15:34 15:34 14:35 WBC 9.8 (4.8-10.8) K/uL RBC 3.95 (3.80-5.20) Mil/uL Hgb 13.5 (11.0-16.0) g/dL Hct 39.6 (34.0-47.0) % MCV 100.3 H (81.0-99.0) fL MCH 34.1 H (27.0-31.0) pg MCHC 34.0 (33.0-37.0) g/dL RDW 13.5 (11.5-14.5) % Plt Count 92 L D (130-400) K/uL MPV 8.9 (7.2-11.7) fL Neut % (Auto) 89.1 H (50.0-75.0) % Lymph % (Auto) 7.4 L (20.0-40.0) % [place] % (Auto) 3.2 (0.0-10.0) % Eos % (Auto) 0.1 (0.0-4.0) % Baso % (Auto) 0.2 (0.0-2.0) % Neut # 8.7 H (1.8-7.0) K/uL Lymph # 0.7 L (1.0-4.3) K/uL [place] # 0.3 (0.0-0.8) K/uL Eos # 0.0 (0.0-0.7) K/uL Baso # 0.0 (0.0-0.2) K/uL Neutrophils % (Manual) 76 H (50-75) % Band Neutrophils % 16 H* (0-2) % Lymphocytes % (Manual) 4 L (20-40) % Monocytes % (Manual) 4 (0-10) % Platelet Estimate Decreased L (NORMAL) RBC Morphology Normal Sodium 130 L (132-148) mmol/L Potassium 3.5 L (3.6-5.2) mmol/L Chloride 97 L (98-107) mmol/L Carbon Dioxide 21 L (22-30) mmol/L Anion Gap 16 (10-20) BUN 4 L (7-17) mg/dL Creatinine 0.7 (0.7-1.2) mg/dL Est GFR ( Amer) > 60 Est GFR (Non-Af Amer) > 60 POC Glucose (mg/dL) 147 H (65-110) mg/dL Random Glucose 138 H (65-105) mg/dL Calcium 7.6 L (8.6-10.4) mg/dl Phosphorus 2.0 L (2.5-4.5) mg/dL Magnesium 1.5 L (1.6-2.3) mg/dL Total Bilirubin 2.9 H (0.2-1.3) mg/dL AST 679 H (14-36) U/L ALT 208 H (9-52) U/L Alkaline Phosphatase 96 (38-126) U/L Total Protein 6.1 L (6.3-8.3) g/dL Albumin 3.1 L (3.5-5.0) g/dL Globulin 3.0 (2.2-3.9) gm/dL Albumin/Globulin Ratio 1.0 (1.0-2.1) Triglycerides (0-149) mg/dL Lipase 3662 H (23-300) U/L TSH 3rd Generation (0.46-4.68) mIU/L ISABEL 6 Profile (NEGATIVE) Anti-Mitochondrial Ab (Negative) Anti-Smooth Muscle Ab (Negative) 03/13/17 03/13/17 Range/Units 15:33 15:19 WBC (4.8-10.8) K/uL RBC (3.80-5.20) Mil/uL Hgb (11.0-16.0) g/dL Hct (34.0-47.0) % MCV (81.0-99.0) fL MCH (27.0-31.0) pg MCHC (33.0-37.0) g/dL RDW (11.5-14.5) % Plt Count (130-400) K/uL MPV (7.2-11.7) fL Neut % (Auto) (50.0-75.0) % Lymph % (Auto) (20.0-40.0) % [place] % (Auto) (0.0-10.0) % Eos % (Auto) (0.0-4.0) % Baso % (Auto) (0.0-2.0) % Neut # (1.8-7.0) K/uL Lymph # (1.0-4.3) K/uL [place] # (0.0-0.8) K/uL Eos # (0.0-0.7) K/uL Baso # (0.0-0.2) K/uL Neutrophils % (Manual) (50-75) % Band Neutrophils % (0-2) % Lymphocytes % (Manual) (20-40) % Monocytes % (Manual) (0-10) % Platelet Estimate (NORMAL) RBC Morphology Sodium (132-148) mmol/L Potassium (3.6-5.2) mmol/L Chloride (98-107) mmol/L Carbon Dioxide (22-30) mmol/L Anion Gap (10-20) BUN (7-17) mg/dL Creatinine (0.7-1.2) mg/dL Est GFR ( Amer) Est GFR (Non-Af Amer) POC Glucose (mg/dL) (65-110) mg/dL Random Glucose (65-105) mg/dL Calcium (8.6-10.4) mg/dl Phosphorus (2.5-4.5) mg/dL Magnesium (1.6-2.3) mg/dL Total Bilirubin (0.2-1.3) mg/dL AST (14-36) U/L ALT (9-52) U/L Alkaline Phosphatase (38-126) U/L Total Protein (6.3-8.3) g/dL Albumin (3.5-5.0) g/dL Globulin (2.2-3.9) gm/dL Albumin/Globulin Ratio (1.0-2.1) Triglycerides (0-149) mg/dL Lipase (23-300) U/L TSH 3rd Generation (0.46-4.68) mIU/L ISABEL 6 Profile Negative (NEGATIVE) Anti-Mitochondrial Ab Negative (Negative) Anti-Smooth Muscle Ab Negative (Negative) Laboratory Results - last 24 hr 03/13/17 03/13/17 03/14/17 15:19 15:33 14:35 WBC RBC Hgb Hct MCV MCH MCHC RDW Plt Count MPV Neut % (Auto) Lymph % (Auto) [place] % (Auto) Eos % (Auto) Baso % (Auto) Neut # Lymph # [place] # Eos # Baso # Neutrophils % (Manual) Band Neutrophils % Lymphocytes % (Manual) Monocytes % (Manual) Platelet Estimate RBC Morphology Sodium Potassium Chloride Carbon Dioxide Anion Gap BUN Creatinine Est GFR ( Amer) Est GFR (Non-Af Amer) POC Glucose (mg/dL) 147 H Random Glucose Calcium Phosphorus Magnesium Total Bilirubin AST ALT Alkaline Phosphatase Total Protein Albumin Globulin Albumin/Globulin Ratio Triglycerides Lipase TSH 3rd Generation ISABEL 6 Profile Negative Anti-Mitochondrial Ab Negative Anti-Smooth Muscle Ab Negative 03/14/17 03/14/17 03/14/17 15:34 15:34 16:08 WBC 9.8 RBC 3.95 Hgb 13.5 Hct 39.6 MCV 100.3 H MCH 34.1 H MCHC 34.0 RDW 13.5 Plt Count 92 L D MPV 8.9 Neut % (Auto) 89.1 H Lymph % (Auto) 7.4 L [place] % (Auto) 3.2 Eos % (Auto) 0.1 Baso % (Auto) 0.2 Neut # 8.7 H Lymph # 0.7 L [place] # 0.3 Eos # 0.0 Baso # 0.0 Neutrophils % (Manual) 76 H Band Neutrophils % 16 H* Lymphocytes % (Manual) 4 L Monocytes % (Manual) 4 Platelet Estimate Decreased L RBC Morphology Normal Sodium 130 L Potassium 3.5 L Chloride 97 L Carbon Dioxide 21 L Anion Gap 16 BUN 4 L Creatinine 0.7 Est GFR ( Amer) > 60 Est GFR (Non-Af Amer) > 60 POC Glucose (mg/dL) 128 H Random Glucose 138 H Calcium 7.6 L Phosphorus 2.0 L Magnesium 1.5 L Total Bilirubin 2.9 H AST 679 H ALT 208 H Alkaline Phosphatase 96 Total Protein 6.1 L Albumin 3.1 L Globulin 3.0 Albumin/Globulin Ratio 1.0 Triglycerides Lipase 3662 H TSH 3rd Generation ISABEL 6 Profile Anti-Mitochondrial Ab Anti-Smooth Muscle Ab 03/14/17 03/14/17 03/14/17 17:57 20:18 22:05 WBC RBC Hgb Hct MCV MCH MCHC RDW Plt Count MPV Neut % (Auto) Lymph % (Auto) [place] % (Auto) Eos % (Auto) Baso % (Auto) Neut # Lymph # [place] # Eos # Baso # Neutrophils % (Manual) Band Neutrophils % Lymphocytes % (Manual) Monocytes % (Manual) Platelet Estimate RBC Morphology Sodium Potassium Chloride Carbon Dioxide Anion Gap BUN Creatinine Est GFR ( Amer) Est GFR (Non-Af Amer) POC Glucose (mg/dL) 132 H 128 H 123 H Random Glucose Calcium Phosphorus Magnesium Total Bilirubin AST ALT Alkaline Phosphatase Total Protein Albumin Globulin Albumin/Globulin Ratio Triglycerides Lipase TSH 3rd Generation ISABEL 6 Profile Anti-Mitochondrial Ab Anti-Smooth Muscle Ab 03/15/17 03/15/17 03/15/17 00:05 02:23 04:04 WBC RBC Hgb Hct MCV MCH MCHC RDW Plt Count MPV Neut % (Auto) Lymph % (Auto) [place] % (Auto) Eos % (Auto) Baso % (Auto) Neut # Lymph # [place] # Eos # Baso # Neutrophils % (Manual) Band Neutrophils % Lymphocytes % (Manual) Monocytes % (Manual) Platelet Estimate RBC Morphology Sodium Potassium Chloride Carbon Dioxide Anion Gap BUN Creatinine Est GFR ( Amer) Est GFR (Non-Af Amer) POC Glucose (mg/dL) 117 H 108 93 Random Glucose Calcium Phosphorus Magnesium Total Bilirubin AST ALT Alkaline Phosphatase Total Protein Albumin Globulin Albumin/Globulin Ratio Triglycerides Lipase TSH 3rd Generation ISABEL 6 Profile Anti-Mitochondrial Ab Anti-Smooth Muscle Ab 03/15/17 03/15/17 03/15/17 05:41 06:04 06:04 WBC 9.7 RBC 3.38 L Hgb 11.6 Hct 33.6 L MCV 99.4 H MCH 34.3 H MCHC 34.5 RDW 13.7 Plt Count 77 L MPV 9.6 Neut % (Auto) 82.5 H Lymph % (Auto) 12.1 L [place] % (Auto) 5.0 Eos % (Auto) 0.2 Baso % (Auto) 0.2 Neut # 8.0 H Lymph # 1.2 [place] # 0.5 Eos # 0.0 Baso # 0.0 Neutrophils % (Manual) Band Neutrophils % Lymphocytes % (Manual) Monocytes % (Manual) Platelet Estimate RBC Morphology Sodium 134 Potassium 3.8 Chloride 102 Carbon Dioxide 23 Anion Gap 13 BUN 3 L Creatinine 0.6 L Est GFR ( Amer) > 60 Est GFR (Non-Af Amer) > 60 POC Glucose (mg/dL) 126 H Random Glucose 107 H Calcium 7.9 L Phosphorus 1.3 L Magnesium 1.8 Total Bilirubin 2.0 H AST 426 H D ALT 164 H D Alkaline Phosphatase 79 Total Protein 5.1 L Albumin 2.4 L D Globulin 2.7 Albumin/Globulin Ratio 0.9 L Triglycerides 152 H D Lipase 2405 H TSH 3rd Generation 2.44 ISABEL 6 Profile Anti-Mitochondrial Ab Anti-Smooth Muscle Ab 03/15/17 03/15/17 08:10 11:29 WBC RBC Hgb Hct MCV MCH MCHC RDW Plt Count MPV Neut % (Auto) Lymph % (Auto) [place] % (Auto) Eos % (Auto) Baso % (Auto) Neut # Lymph # [place] # Eos # Baso # Neutrophils % (Manual) Band Neutrophils % Lymphocytes % (Manual) Monocytes % (Manual) Platelet Estimate RBC Morphology Sodium Potassium Chloride Carbon Dioxide Anion Gap BUN Creatinine Est GFR ( Amer) Est GFR (Non-Af Amer) POC Glucose (mg/dL) 103 98 Random Glucose Calcium Phosphorus Magnesium Total Bilirubin AST ALT Alkaline Phosphatase Total Protein Albumin Globulin Albumin/Globulin Ratio Triglycerides Lipase TSH 3rd Generation ISABEL 6 Profile Anti-Mitochondrial Ab Anti-Smooth Muscle Ab Fingerstick Blood Sugar Results: 103 Review of Systems - Constitutional Constitutional: Weakness. absent: Fever, Chills - EENT Eyes: absent: Blurred Vision, Change in Vision Ears: absent: Dizziness - Cardiovascular Cardiovascular: absent: Chest Pain, Chest Pain at Rest, Diaphoresis, Dyspnea, Lightheadedness, Palpitations - Respiratory Respiratory: absent: Dyspnea, Wheezing - Gastrointestinal Gastrointestinal: Abdominal Pain. absent: Nausea, Vomiting - Musculoskeletal Musculoskeletal: absent: Numbness, Tingling - Neurological Neurological: absent: Dizziness, Headaches, Tingling, Weakness - Psychiatric Psychiatric: Anxiety - Endocrine Endocrine: Palpitations. absent: Fatigue Critical Care Progress Note - Nutrition Nutrition: Nutrition Category Date Time Status Liquid Diet [DIET] Diets 03/14/17 Breakfast Active Assessment/Plan - Assessment and Plan (Free Text) Assessment: Patient is a 31 year old female past medical history of hypertension who presents tot he ED with complaints of abdominal pain, vomiting and watery diarrhea that started 2-3 days ago, with lactate level of 9.5, 6.5 and lipase of 6496. Patient was admitted to the ICU with consideration of acute pancreatitis and transaminitis Plan: Continue current management Plan: Neuro: Alert, awake and oriented Cardio: Hx of HTN Medication and Management: * Norvasc 5mg PO daily Pulm: No acute issues GI: Acute Pancreatitis and transaminitis and Constipation GI consult, Dr. Okeefe---> Help appreciated Surgical Consult, Dr. Snyder----> Help appreciated * Management as per recommendation Imaging: Abdominal US (03/05/17): Enlarged liver measuring up to 20.6cm in length with diffuse increased echogenicity suggestive for fatty infiltration Chest CT/Abdomen/Pelvis ( 03/13/17): Extensive peripancreatic inflammatory stranding and fluid which tracks inferiorly as well as pancreatic edema. Constellation of findings consistent with acute pancreatitis. Correlate clinically including amylase and lipase. * Hepatomegaly. Severe diffuse hypoattenuation of the liver compatible with hepatic steatosis. 2.0 x 4.2 cm more focal hypodensity within the inferior right hepatic lobe near the portal confluence, possibly more focal fatty infiltration. * Contrast within the gallbladder presumably due to vicarious excretion. * Small to moderate pelvic free fluid. Labs: * Hepatitis panel: Negative Medication/Management: * Transaminitis and lipase trending down * Clear liquid diet * Dilaudid 1mg IV Q4H PRN for pain control * LR @ 100mls/hr * Miralax 17gm PO daily Endo: Hypertriglyceridemia * Trending down Endocrinology Consult, Dr. Sung---> Help appreciated Medication/Management: * Insulin drip at 2mls/hr, discontinued (03/15/17) Psych: Alcohol disorder, Anxiety and Insomnia Psychiatry Consult, Dr. Deshpande---> Help appreciated * Educated on alcohol cessation * Alcohol withdrawal protocol Medication/Management: * Gabapentin 100mg PO TID * Trazodone 50mg PO HS * Ativan 1mg IVP Q6H prn ID: No acute issues Prophylaxis: DVT: SCDs, Heparin 5,000 units SC Q8H GI: Pepcid 20mg IVP Q12H <Gonzalo Low - Last Filed: 03/19/17 23:59> CCU Objective - Vital Signs / Intake & Output Intake and Output (Last 8hrs): Intake & Output 03/19/17 03/19/17 03/20/17 14:59 22:59 06:59 Intake Total 360 300 Output Total 400 Balance 360 -100 Intake: Oral 360 300 Output: Urine 400 Urine, Voided 400 Other: # Voids Urine, Voided 3 2 # Bowel Movements 0 - Medications Active Medications: Active Medications Generic Name Dose Route Start Last Admin Trade Name Freq PRN Reason Stop Dose Admin Amlodipine Besylate 10 mg 03/17/17 10:00 03/19/17 09:45 Norvasc PO 10 mg DAILY MONIKA Administration Enoxaparin Sodium 70 mg 03/20/17 10:00 Lovenox SC Q12 MONIKA Famotidine 20 mg 03/13/17 22:00 03/19/17 21:44 Pepcid IVP 20 mg Q12 MONIKA Administration Fenofibrate 145 mg 03/16/17 18:00 03/19/17 18:44 Tricor PO 145 mg QPM MONIKA Administration Gabapentin 100 mg 03/14/17 14:00 03/19/17 18:44 Neurontin PO 100 mg TID MONIKA Administration Hydralazine HCl 25 mg 03/18/17 16:29 03/19/17 05:29 Apresoline PO 25 mg Q6 PRN Administration Systolic Blood Pressure Hydromorphone HCl 1 mg 03/13/17 14:29 03/19/17 22:48 Dilaudid IVP 1 mg Q4H PRN Administration Pain, severe (8-10) Lisinopril 5 mg 03/17/17 10:00 03/19/17 09:44 Zestril PO 5 mg DAILY MONIKA Administration Lorazepam 1 mg 03/13/17 19:14 Ativan IVP Q4H PRN Symptoms of alcohol withdrawl [id number] Ethyl Esters 1 gm 03/16/17 10:00 03/19/17 18:44 Lovaza PO 1 gm BID MONIKA Administration Polyethylene Glycol 17 gm 03/14/17 08:05 03/14/17 09:20 Miralax PO 17 gm DAILY PRN Administration Constipation Trazodone HCl 50 mg 03/14/17 22:00 03/19/17 21:44 Desyrel PO 50 mg HS MONIKA Administration - Patient Studies Lab Studies: Microbiology Studies 03/18/17 22:56 MRSA Culture - Final Naris MRSA NOT DETECTED Lab Studies 03/19/17 03/19/17 03/19/17 Range/Units 17:16 15:37 11:36 WBC (4.8-10.8) K/uL RBC (3.80-5.20) Mil/uL Hgb (11.0-16.0) g/dL Hct (34.0-47.0) % MCV (81.0-99.0) fL MCH (27.0-31.0) pg MCHC (33.0-37.0) g/dL RDW (11.5-14.5) % Plt Count (130-400) K/uL MPV (7.2-11.7) fL Neut % (Auto) (50.0-75.0) % Lymph % (Auto) (20.0-40.0) % [place] % (Auto) (0.0-10.0) % Eos % (Auto) (0.0-4.0) % Baso % (Auto) (0.0-2.0) % Neut # (1.8-7.0) K/uL Lymph # (1.0-4.3) K/uL [place] # (0.0-0.8) K/uL Eos # (0.0-0.7) K/uL Baso # (0.0-0.2) K/uL Neutrophils % (Manual) (50-75) % Band Neutrophils % (0-2) % Lymphocytes % (Manual) (20-40) % Reactive Lymphs % (0-0) % Monocytes % (Manual) (0-10) % Eosinophils % (Manual) (0-4) % Basophils % (Manual) (0-2) % Myelocytes % (0-0) % Platelet Estimate (NORMAL) Poikilocytosis (manual Target Cells D-Dimer, Quantitative 4683 H (0-243) ng/mlDDU Sodium 131 L (132-148) mmol/L Potassium 3.6 (3.6-5.2) mmol/L Chloride 95 L (98-107) mmol/L Carbon Dioxide 25 (22-30) mmol/L Anion Gap 15 (10-20) BUN 2 L (7-17) mg/dL Creatinine 0.5 L (0.7-1.2) mg/dL Est GFR ( Amer) > 60 Est GFR (Non-Af Amer) > 60 Random Glucose 92 (65-105) mg/dL Calcium 9.1 (8.6-10.4) mg/dl Phosphorus 3.9 (2.5-4.5) mg/dL Magnesium 1.6 (1.6-2.3) mg/dL Total Bilirubin 0.9 (0.2-1.3) mg/dL AST 115 H D (14-36) U/L ALT 103 H (9-52) U/L Alkaline Phosphatase 124 (38-126) U/L Total Protein 7.0 (6.3-8.3) g/dL Albumin 3.5 (3.5-5.0) g/dL Globulin 3.5 (2.2-3.9) gm/dL Albumin/Globulin Ratio 1.0 (1.0-2.1) Urine HCG, Qual Negative (NEGATIVE) 03/19/17 Range/Units 11:36 WBC 6.8 (4.8-10.8) K/uL RBC 3.62 L (3.80-5.20) Mil/uL Hgb 12.1 (11.0-16.0) g/dL Hct 35.9 (34.0-47.0) % MCV 99.2 H (81.0-99.0) fL MCH 33.6 H (27.0-31.0) pg MCHC 33.8 (33.0-37.0) g/dL RDW 14.6 H (11.5-14.5) % Plt Count 268 (130-400) K/uL MPV 9.2 (7.2-11.7) fL Neut % (Auto) 55.5 (50.0-75.0) % Lymph % (Auto) 22.3 (20.0-40.0) % [place] % (Auto) 21.4 H (0.0-10.0) % Eos % (Auto) 0.4 (0.0-4.0) % Baso % (Auto) 0.4 (0.0-2.0) % Neut # 3.8 (1.8-7.0) K/uL Lymph # 1.5 (1.0-4.3) K/uL [place] # 1.5 H (0.0-0.8) K/uL Eos # 0.0 (0.0-0.7) K/uL Baso # 0.0 (0.0-0.2) K/uL Neutrophils % (Manual) 48 L (50-75) % Band Neutrophils % 3 H (0-2) % Lymphocytes % (Manual) 25 (20-40) % Reactive Lymphs % 1 H (0-0) % Monocytes % (Manual) 20 H (0-10) % Eosinophils % (Manual) 1 (0-4) % Basophils % (Manual) 1 (0-2) % Myelocytes % 1 H (0-0) % Platelet Estimate Normal (NORMAL) Poikilocytosis (manual Slight Target Cells Slight D-Dimer, Quantitative (0-243) ng/mlDDU Sodium (132-148) mmol/L Potassium (3.6-5.2) mmol/L Chloride (98-107) mmol/L Carbon Dioxide (22-30) mmol/L Anion Gap (10-20) BUN (7-17) mg/dL Creatinine (0.7-1.2) mg/dL Est GFR ( Amer) Est GFR (Non-Af Amer) Random Glucose (65-105) mg/dL Calcium (8.6-10.4) mg/dl Phosphorus (2.5-4.5) mg/dL Magnesium (1.6-2.3) mg/dL Total Bilirubin (0.2-1.3) mg/dL AST (14-36) U/L ALT (9-52) U/L Alkaline Phosphatase (38-126) U/L Total Protein (6.3-8.3) g/dL Albumin (3.5-5.0) g/dL Globulin (2.2-3.9) gm/dL Albumin/Globulin Ratio (1.0-2.1) Urine HCG, Qual (NEGATIVE) Laboratory Results - last 24 hr 03/19/17 03/19/17 03/19/17 11:36 11:36 15:37 WBC 6.8 RBC 3.62 L Hgb 12.1 Hct 35.9 MCV 99.2 H MCH 33.6 H MCHC 33.8 RDW 14.6 H Plt Count 268 MPV 9.2 Neut % (Auto) 55.5 Lymph % (Auto) 22.3 [place] % (Auto) 21.4 H Eos % (Auto) 0.4 Baso % (Auto) 0.4 Neut # 3.8 Lymph # 1.5 [place] # 1.5 H Eos # 0.0 Baso # 0.0 Neutrophils % (Manual) 48 L Band Neutrophils % 3 H Lymphocytes % (Manual) 25 Reactive Lymphs % 1 H Monocytes % (Manual) 20 H Eosinophils % (Manual) 1 Basophils % (Manual) 1 Myelocytes % 1 H Platelet Estimate Normal Poikilocytosis (manual Slight Target Cells Slight D-Dimer, Quantitative 4683 H Sodium 131 L Potassium 3.6 Chloride 95 L Carbon Dioxide 25 Anion Gap 15 BUN 2 L Creatinine 0.5 L Est GFR ( Amer) > 60 Est GFR (Non-Af Amer) > 60 Random Glucose 92 Calcium 9.1 Phosphorus 3.9 Magnesium 1.6 Total Bilirubin 0.9 AST 115 H D ALT 103 H Alkaline Phosphatase 124 Total Protein 7.0 Albumin 3.5 Globulin 3.5 Albumin/Globulin Ratio 1.0 Urine HCG, Qual 03/19/17 17:16 WBC RBC Hgb Hct MCV MCH MCHC RDW Plt Count MPV Neut % (Auto) Lymph % (Auto) [place] % (Auto) Eos % (Auto) Baso % (Auto) Neut # Lymph # [place] # Eos # Baso # Neutrophils % (Manual) Band Neutrophils % Lymphocytes % (Manual) Reactive Lymphs % Monocytes % (Manual) Eosinophils % (Manual) Basophils % (Manual) Myelocytes % Platelet Estimate Poikilocytosis (manual Target Cells D-Dimer, Quantitative Sodium Potassium Chloride Carbon Dioxide Anion Gap BUN Creatinine Est GFR ( Amer) Est GFR (Non-Af Amer) Random Glucose Calcium Phosphorus Magnesium Total Bilirubin AST ALT Alkaline Phosphatase Total Protein Albumin Globulin Albumin/Globulin Ratio Urine HCG, Qual Negative Critical Care Progress Note - Nutrition Nutrition: Nutrition Category Date Time Status Heart Healthy Diet [DIET] Diets 03/17/17 Lunch Active Attending/Attestation - Attestation I have personally seen and examined this patient.: Yes I have fully participated in the care of the patient.: Yes I have reviewed all pertinent clinical information: Yes Notes (Text): 03/15/17 Today: Wednesday, March 15, 2017 The Patient was seen and examined at the bedside, Medical records reviewed, and management issues were discussed and formulated with the house staff. I have reviewed all the relevant clinical, laboratory, hemodynamic, radiographic data and medications Events reviewed Pain issues, skin care, head of the bed elevation, glycemic control were addressed. I concur with resident's assessment and plan of care as transcribed in Dr. Thomas note.
--- NOTE | 2017-03-15 13:35 | PCM.PYCHPN ---
Psychiatric Progress Note - Psychiatric Progress Note Patient seen today, length of contact: 16 min Patient Chief Complaint: "Pain" Problems Identified/Issues Discussed: The pt is seen, chart reviewed, case discussed with staff. The pt is compliant with medications and reports no side-effects. Symptoms are improving but needs more time to stabilize. After care discussed, support and psychoeducation given. Still refusing standing antidepressant meds Psych will sign off Medication Change: No Medical Record Reviewed: Yes Mental Status Examination - Cognitive Function Orientation: Person, Place, Situation, Time Memory: Impaired Attention: Poor Concentration: Poor Association: WNL Fund of Knowledge: WNL - Mood Mood: Depressed, Anxious - Affect Affect: Constricted - Speech Speech: Appropriate - Formal Thought Process Formal Thought Process: No Impairment - Suicidal Ideation Suicidal Ideation: No - Homicidal Ideation Homicidal Ideation: No Goal/Treatment Plan - Goal/Treatment Plan Progress Toward Problem(s) and Goals/Treatment Plan: gabapentin for anxiety trazodone fro insomnia Pt is refusing to stay on any antidepressant, again Individual therapy Psychoeducation and support Refer to outpatient program Teach healthy lifestyle methods, i.e. diet, exercise, meditation Smoking cessation if indicated
--- NOTE | 2017-03-15 18:31 | PN ---
ENDOCRINOLOGY FOLLOWUP NOTE DATE: LOCATION: ICU room 6. This is a 31-year-old female who presenting here with acute pancreatitis related to alcoholic intoxication on the background of chronic alcoholism and is now being followed closely for metabolic management. Her glycemic levels have much improved at this time and the latest glucose levels have ranged from 91 to 98 and 103 mg/dL. Her latest chemistry shows a BUN of 3, sodium 134, potassium 3.8, chloride 102, CO2 23, glucose 107 and creatinine 0.6. Her latest lipase level is 2405 which is a remarkable reduction compared to the initial levels on admission. Her triglyceride levels have normalized at 152 mg/dL. At this time, we will still recommend the initiation of omega-3 fatty acids given as 1 g twice a day and fenofibrate given as 145 or 160 mg at bedtime whichever is available or whichever is approved by her insurance company. We will find out some of the endocrine care at this time and she will follow with her medical doctors. The insulin drip infusion has been discontinued already as noted. Asiya Sung MD
--- NOTE | 2017-03-15 20:29 | CP.PCM.PN ---
Subjective - Date & Time of Evaluation Date of Evaluation: 03/15/17 Time of Evaluation: 18:10 - Subjective Subjective: Medical Attending Note: Patient seen and examined in the evening. patient reports abdominal pain is improving. patient reports she has not had a bowel movement since coming to the hospital. Patient denies history of excessive alcohol use. Objective - Vital Signs/Intake and Output Vital Signs (last 24 hours): Temp Pulse Resp BP Pulse Ox 99.5 F 107 H 15 132/94 H 100 03/15/17 16:00 03/15/17 18:00 03/15/17 18:00 03/15/17 18:00 03/15/17 18:00 Intake and Output: 03/15/17 03/16/17 18:59 06:59 Intake Total 2130 100 Output Total 480 Balance 1650 100 - Medications Medications: Current Medications Amlodipine Besylate (Norvasc) 5 mg PO DAILY [facility] Last Admin: 03/15/17 10:17 Dose: 5 mg Famotidine (Pepcid) 20 mg IVP Q12 [facility] Last Admin: 03/15/17 10:17 Dose: 20 mg Gabapentin (Neurontin) 100 mg PO TID [facility] Last Admin: 03/15/17 18:41 Dose: 100 mg Heparin Sodium (Porcine) (Heparin) 5,000 units SC Q8 [facility] Last Admin: 03/15/17 17:15 Dose: 5,000 units Hydromorphone HCl (Dilaudid) 1 mg IVP Q4H PRN PRN Reason: Pain, severe (8-10) Last Admin: 03/15/17 08:39 Dose: 1 mg Lactated Ringer's (Lactated Ringer's) 1,000 mls @ 100 mls/hr IV .Q10H [facility] Last Admin: 03/15/17 14:12 Dose: Not Given Lorazepam (Ativan) 1 mg IVP Q4H PRN PRN Reason: Symptoms of alcohol withdrawl Polyethylene Glycol (Miralax) 17 gm PO DAILY PRN PRN Reason: Constipation Last Admin: 03/14/17 09:20 Dose: 17 gm Trazodone HCl (Desyrel) 50 mg PO HS [facility] Last Admin: 03/14/17 21:12 Dose: 50 mg - Labs Labs: 03/15/17 06:04 03/15/17 06:04 PT 12.7 SECONDS (9.7-12.2) H 03/13/17 14:06 INR 1.1 03/13/17 14:06 - Constitutional Appears: Non-toxic, No Acute Distress - Head Exam Head Exam: NORMAL INSPECTION - Eye Exam Eye Exam: EOMI - ENT Exam ENT Exam: Mucous Membranes Moist - Respiratory Exam Respiratory Exam: Decreased Breath Sounds, NORMAL BREATHING PATTERN. absent: Rales, Rhonchi, Wheezes, Respiratory Distress - Cardiovascular Exam Cardiovascular Exam: Tachycardia, +S1, +S2 - GI/Abdominal Exam GI & Abdominal Exam: Distended, Soft, Tenderness (improved epigastric), Normal Bowel Sounds, Rebound. absent: Guarding, Rigid - Extremities Exam Extremities Exam: absent: Pedal Edema, Tenderness - Neurological Exam Neurological Exam: Alert, Awake, Oriented x3 Neuro motor strength exam: Left Upper Extremity: 5, Right Upper Extremity: 5, Left Lower Extremity: 5, Right Lower Extremity: 5 - Psychiatric Exam Psychiatric exam: Anxious - Skin Skin Exam: Dry, Normal Color, Warm Assessment and Plan - Assessment and Plan (Free Text) Assessment: 1) Acute Pancreatitis Transaminitis Lactic acidosis/ Metabolic Acidosis * Patient seen, examined and case discussed with ICU, accepted to ICU; management per ICU * GI (Dr. Okeefe) on the case-->help appreciated * General surgery (Dr. Snyder) on the case-->help appreciated * NPO-->liquid diet * Patient given 3 fluid boluses in the ED< patient started on LR 250cc/hr--> changed D5NS d/c 03/15 * Resumed on LR 100cc'hr * Lactate: 9.5-->6.5 * Lipase: 6496; AST/ALT: 1051/287; Lactate DH:1749 * LFTs downtrending * Hepatitis panel negative * T, LDL: 252, HDL: 88 * Unable to trend TG because it was quite elevated * Off insulin drip * Endocrinology: recommending for [place] 3 FA and fenofibrate * [place]'s Criteria: 2 (AST>250, LDH>350) * Elevated alcohol on admission * HIV: negative * Tylenol level: Low * Abdominal US (03/05/17): Enlarged liver measuring up to 20.6cm in length with diffuse increased echogenicity suggestive for fatty infiltration * Chest CT/Abdomen/Pelvis (03/13/17): Extensive peripancreatic inflammatory stranding and fluid which tracks inferiorly as well as pancreatic edema. Constellation of findings consistent with acute pancreatitis. Correlate clinically including amylase and lipase. Hepatomegaly. Severe diffuse hypoattenuation of the liver compatible with hepatic steatosis. 2.0 x 4.2 cm more focal hypodensity within the inferior right hepatic lobe near the portal confluence, possibly more focal fatty infiltration. Contrast within the gallbladder presumably due to vicarious excretion. Small to moderate pelvic free fluid. * UDS: negative (opioid; patient is on dilaudid in hospital) * Smooth muscle antibody, anti-mitochondrial antibody ordered 2) Hypertrigylceridemia * T, LDL: 252, HDL: 88 * unable to trend triglycerides; which are quite elevated * Patient currently not on any medication as outpatient * Endocrinology Dr. Sung-->help apppreciated * Patient started on Insulin drip and accuchecks Q1 3) Hypertension * Given fluid boluses in the ED, started on LR 250cc/hr-->D5NS d/c 10.13 * Resumed LR IV fluids * Will increase Norvasc 5mg PO daily 4) Prior history of URI * CT Chest obtained * Strep pneumoniae: negative * Legionella: negative * Mycoplasma IgM: negative 5) Anxiety, PTSD * Psych consult (Dr. Deshpande) help appreciated * Ativan 1mg IV Q4 HR PRN anxiety * Gabapentin 100mg PO TID * Trazodone 50mg PO qHS 6) Low Magnesium * replete 7) Thrombocytopenia * Monitor platelets * Patient is on heparin subq8h * Note: patient has pancreatitis 8) Prophylaxis: * DVT: SCDs; Heparin 5000 units subq8H * GI: Pepcid 20mg IVP Q12H Discussed with ICU, patient is off Insulin drip. Patient is on IV fluids. Will continue to monitor.
[2017-03-15 23:15] LABS: LKM-1 Ab (IgG) <=20.0 U (<=20.0)
[2017-03-16] MEDS: Lactated Ringer's 1,000 ML IV SCH ×5 (00:12→21:00)
[2017-03-16 06:03] LABS: ABG ALLEN TEST POS; DRAW SITE RR
[2017-03-16 06:22] LABS: BASO % 0.3 % (0.0-2.0); EOS % 0.4 % (0.0-4.0); HEMATOCRIT 30.8 % (34.0-47.0); LYMPH # 1.2 K/uL (1.0-4.3); LYMPH % 13.7 % (20.0-40.0); MEAN CELL VOLUME 97.4 fL (81.0-99.0); MEAN CORPUSCULAR HGB CONC 34.9 g/dL (33.0-37.0); MEAN PLATELET VOLUME 10.2 fL (7.2-11.7); MONO # 0.5 K/uL (0.0-0.8); MONO % 5.5 % (0.0-10.0); NRBC % 0.2 % (0.0-2.0); RED CELL DISTRIBUTION WIDTH 13.2 % (11.5-14.5); WHITE BLOOD COUNT 8.7 K/uL (4.8-10.8)
[2017-03-16 06:27] LABS: CHLORIDE 98 mmol/L (98-107)
[2017-03-16 06:28] LABS: POTASSIUM 3.2 mmol/L (3.6-5.2); SODIUM 133 mmol/L (132-148)
[2017-03-16 06:30] LABS: ALB/GLOB RATIO 0.9 (1.0-2.1); ALKALINE PHOSPHATASE 93 U/L (38-126); ALT/SGPT 137 U/L (9-52); AST/SGOT 264 U/L (14-36); BILIRUBIN,TOTAL 1.6 mg/dL (0.2-1.3); CARBON DIOXIDE 26 mmol/L (22-30); GFR AFRICAN-AMERICAN > 60; TOTAL PROTEIN 5.7 g/dL (6.3-8.3)
[2017-03-16 06:31] LABS: CALCIUM 8.5 mg/dl (8.6-10.4); GLUCOSE,RANDOM 85 mg/dL (65-105); MAGNESIUM 1.8 mg/dL (1.6-2.3); PHOSPHOROUS 1.1 mg/dL (2.5-4.5)
[2017-03-16 06:42] LABS: BLOOD UREA NITROGEN 2 mg/dL (7-17)
--- NOTE | 2017-03-16 08:16 | CP.PCM.PN ---
Subjective - Date & Time of Evaluation Date of Evaluation: 03/16/17 Time of Evaluation: 07:30 - Subjective Subjective: General Surgery Dr. Snyder Pt S&E @bedside. NAEO. pain and distension improved. Pt denies F/C, N/V. 1 episode diarrhea overnight. tolerating CLD. Objective - Vital Signs/Intake and Output Vital Signs (last 24 hours): Temp Pulse Resp BP Pulse Ox 98 F 114 H 25 H 137/102 H 94 L 03/16/17 04:00 03/16/17 06:00 03/16/17 06:00 03/16/17 06:00 03/16/17 06:00 Intake and Output: 03/16/17 03/16/17 06:59 18:59 Intake Total 1650 Output Total 1650 Balance 0 - Medications Medications: Current Medications Amlodipine Besylate (Norvasc) 5 mg PO DAILY [facility] Last Admin: 03/15/17 10:17 Dose: 5 mg Famotidine (Pepcid) 20 mg IVP Q12 [facility] Last Admin: 03/15/17 21:32 Dose: 20 mg Gabapentin (Neurontin) 100 mg PO TID [facility] Last Admin: 03/15/17 18:41 Dose: 100 mg Heparin Sodium (Porcine) (Heparin) 5,000 units SC Q8 [facility] Last Admin: 03/16/17 05:25 Dose: 5,000 units Hydromorphone HCl (Dilaudid) 1 mg IVP Q4H PRN PRN Reason: Pain, severe (8-10) Last Admin: 03/16/17 06:01 Dose: 1 mg Lactated Ringer's (Lactated Ringer's) 1,000 mls @ 100 mls/hr IV .Q10H [facility] Last Admin: 03/16/17 06:05 Dose: 100 mls/hr Lorazepam (Ativan) 1 mg IVP Q4H PRN PRN Reason: Symptoms of alcohol withdrawl Polyethylene Glycol (Miralax) 17 gm PO DAILY PRN PRN Reason: Constipation Last Admin: 03/14/17 09:20 Dose: 17 gm Trazodone HCl (Desyrel) 50 mg PO HS [facility] Last Admin: 03/15/17 21:32 Dose: 50 mg - Labs Labs: 03/16/17 06:13 03/16/17 06:13 PT 12.7 SECONDS (9.7-12.2) H 03/13/17 14:06 INR 1.1 03/13/17 14:06 - Constitutional Appears: Non-toxic, No Acute Distress - Head Exam Head Exam: NORMAL INSPECTION - Eye Exam Eye Exam: Normal appearance - ENT Exam ENT Exam: Mucous Membranes Moist - Respiratory Exam Respiratory Exam: NORMAL BREATHING PATTERN. absent: Accessory Muscle Use, Respiratory Distress - Cardiovascular Exam Cardiovascular Exam: Tachycardia - GI/Abdominal Exam GI & Abdominal Exam: Distended (decreased), Soft, Tenderness (minimal TTP epigastric). absent: Guarding, Rebound - Extremities Exam Extremities Exam: Normal Inspection. absent: Pedal Edema - Neurological Exam Neurological Exam: Alert, Awake, Oriented x3 - Psychiatric Exam Psychiatric exam: Normal Affect, Normal Mood - Skin Skin Exam: Dry, Intact, Normal Color, Warm Assessment and Plan - Assessment and Plan (Free Text) Assessment: 31 y/o F w/ EtOH-induced pancreatitis - Labs trending down - monitor - cont IVF r - cont pain management - monitor vitals - f/u GI recs - advance diet per GI - encourage OOB to chair/Amb - no surgical intervention at this time Pt discussed w/ Dr. Claudio Howell DO PGY2
[2017-03-16] MEDS ORDERED: Potassium Chloride 20 mEq ER Tab PO ONE (08:31)
--- NOTE | 2017-03-16 08:51 | CP.PCM.PN ---
Subjective - Date & Time of Evaluation Date of Evaluation: 03/16/17 Time of Evaluation: 08:40 - Subjective Subjective: Medical Attending Note Patient seen and examined. Patient denies headache, denies chest pain, denies shortness of breathe, reports abdominal pain has improved, however she feels it more in the back, had a small bowel movement this morning; per discussion with nurse, mixed with urine , reports she feels swollen in the bilateral thighs. Patient reports urinary frequency, denies dysuria, denies hematuia. Patient reports she had her menstruation prio. Objective - Vital Signs/Intake and Output Vital Signs (last 24 hours): Temp Pulse Resp BP Pulse Ox 98.3 F 116 H 21 145/104 H 94 L 03/16/17 08:00 03/16/17 08:00 03/16/17 08:00 03/16/17 08:00 03/16/17 08:00 Intake and Output: 03/16/17 03/16/17 06:59 18:59 Intake Total 1650 400 Output Total 1650 200 Balance 0 200 - Medications Medications: Current Medications Amlodipine Besylate (Norvasc) 5 mg PO DAILY [facility] Last Admin: 03/15/17 10:17 Dose: 5 mg Famotidine (Pepcid) 20 mg IVP Q12 [facility] Last Admin: 03/15/17 21:32 Dose: 20 mg Gabapentin (Neurontin) 100 mg PO TID [facility] Last Admin: 03/15/17 18:41 Dose: 100 mg Heparin Sodium (Porcine) (Heparin) 5,000 units SC Q8 [facility] Last Admin: 03/16/17 05:25 Dose: 5,000 units Hydromorphone HCl (Dilaudid) 1 mg IVP Q4H PRN PRN Reason: Pain, severe (8-10) Last Admin: 03/16/17 06:01 Dose: 1 mg Lactated Ringer's (Lactated Ringer's) 1,000 mls @ 100 mls/hr IV .Q10H [facility] Last Admin: 03/16/17 06:05 Dose: 100 mls/hr Lorazepam (Ativan) 1 mg IVP Q4H PRN PRN Reason: Symptoms of alcohol withdrawl Polyethylene Glycol (Miralax) 17 gm PO DAILY PRN PRN Reason: Constipation Last Admin: 03/14/17 09:20 Dose: 17 gm Potassium Phos/Sodium Phos (Neutra-Phos) 1 pkt PO AC [facility] Stop: 03/17/17 11:31 Trazodone HCl (Desyrel) 50 mg PO HS [facility] Last Admin: 03/15/17 21:32 Dose: 50 mg - Labs Labs: 03/16/17 06:13 03/16/17 06:13 PT 12.7 SECONDS (9.7-12.2) H 03/13/17 14:06 INR 1.1 03/13/17 14:06 - Constitutional Appears: Non-toxic, No Acute Distress - Head Exam Head Exam: NORMAL INSPECTION - Eye Exam Eye Exam: EOMI, PERRL. absent: Nystagmus, Scleral icterus Pupil Exam: NORMAL ACCOMODATION - ENT Exam ENT Exam: Mucous Membranes Moist - Respiratory Exam Respiratory Exam: Decreased Breath Sounds, NORMAL BREATHING PATTERN. absent: Rales, Rhonchi, Wheezes, Respiratory Distress - Cardiovascular Exam Cardiovascular Exam: Tachycardia, +S1, +S2 - GI/Abdominal Exam GI & Abdominal Exam: Distended, Soft, Tenderness (improving), Normal Bowel Sounds. absent: Firm, Guarding, Rigid, Rebound - Extremities Exam Extremities Exam: Normal Capillary Refill. absent: Joint Swelling, Pedal Edema , Tenderness - Back Exam Back Exam: CVA tenderness (R). absent: CVA tenderness (L), muscle spasm, paraspinal tenderness, rash noted, tenderness, vertebral tenderness - Psychiatric Exam Psychiatric exam: Normal Affect, Normal Mood - Skin Skin Exam: Dry, Intact, Normal Color, Warm. absent: Petechiae, Rash, Urticaria Assessment and Plan - Assessment and Plan (Free Text) Assessment: 1) Acute Pancreatitis Lactic acidosis/ Metabolic Acidosis * Patient seen, examined and case discussed with ICU, accepted to ICU; management per ICU * [place]'s Criteria: 2 (AST>250, LDH>350); in 48 hours Calcium: 7.6, Base deficit (10-->22), Fluids >6L * GI (Dr. Okeefe) on the case-->help appreciated * General surgery (Dr. Snyder) on the case-->help appreciated-->no surgical intervention * NPO-->liquid diet * Patient given 3 fluid boluses in the ED< patient started on LR 250cc/hr--> changed D5NS d/c 03/15 * Resumed on LR 100cc'hr * Lactate: 9.5-->6.5-->1.1 * T, LDL: 252, HDL: 88 * Off insulin drip * Improved to 152 * Endocrinology: recommending for [place] 3 FA 1 gm twice a day and fenofibrate 145/160mg qHS which ever is available * Elevated alcohol on admission * HIV: negative * Tylenol level: Low * Abdominal US (03/05/17): Enlarged liver measuring up to 20.6cm in length with diffuse increased echogenicity suggestive for fatty infiltration * Chest CT/Abdomen/Pelvis (03/13/17): Extensive peripancreatic inflammatory stranding and fluid which tracks inferiorly as well as pancreatic edema. Constellation of findings consistent with acute pancreatitis. Correlate clinically including amylase and lipase. Hepatomegaly. Severe diffuse hypoattenuation of the liver compatible with hepatic steatosis. 2.0 x 4.2 cm more focal hypodensity within the inferior right hepatic lobe near the portal confluence, possibly more focal fatty infiltration. Contrast within the gallbladder presumably due to vicarious excretion. Small to moderate pelvic free fluid. * Order CT abdomen/Pelvis with PO and IV contrast-->right CVA tenderness, frequency, and pancreatitis * UDS: negative (opioid; patient is on dilaudid in hospital) 2) Transaminitis * GI (Dr. Okeefe) on the case-->help appreciated * Downtrending * Negative Anti-mitochondrial * Negative Anti-smooth muscle * Liver/kidney microsome ab * ISABEL: negative * Hepatitis negative * HIV negative 3) Hypertrigylceridemia * T, LDL: 252, HDL: 88 on admission * 03/14: cannot be registered * 03/15: 152 improved * Patient currently not on any medication as outpatient * Endocrinology Dr. Sung-->help apppreciated * Was on Insulin drip and currently off Insulin drip * Endocrinology: recommending for [place] 3 FA 1 gm twice a day and fenofibrate 145/160mg qHS which ever is available 4) Hypertension * LR 100 cc/hr * Increase Morvasc 10mg PO daily * Influencing factor: pain 5) Tachycardia * TSH: within normal limits * possible secondary to pain * Repeat ABG with shock today * Patient is saturating * Patient appears euvoleumic 6) Prior history of URI * CT Chest obtained * Strep pneumoniae: negative * Legionella: negative * Mycoplasma IgM: negative 7) Anxiety, PTSD * Psych consult (Dr. Deshpande) help appreciated * Ativan 1mg IV Q4 HR PRN anxiety * Gabapentin 100mg PO TID * Trazodone 50mg PO qHS * per psych, patient is refusing anti-depressant 8) Low Magnesium * within normal today 9) Hypokalemia * replete today 10) Hypophosphatemia * replete today 11) Thrombocytopenia * Monitor platelets * Patient is on heparin subq8h * Note: patient has pancreatitis * Improving 12) Prophylaxis: * DVT: SCDs; Heparin 5000 units subq8H * GI: Pepcid 20mg IVP Q12H
[2017-03-16] MEDS ORDERED: Iohexol 240 (50 ml) PO PRN (10:35)
[2017-03-16] MEDS: Omega-3-Acid Ethyl Esters 1 GM Cap PO SCH ×2 (10:51→17:36)
[2017-03-16] MEDS: Potassium & Sodium Phosphate PO SCH ×2 (11:56→17:38)
--- NOTE | 2017-03-16 11:57 | CP.PCM.PN ---
Subjective - Date & Time of Evaluation Date of Evaluation: 03/16/17 Time of Evaluation: 11:54 - Subjective Subjective: RFV: Pancreatitis S: No acute events. Reduced pain, reports 12/10. No n/v. tolerating liquids. One small bm. No bleeding. No fever. Overall feeling better. No sob. Objective - Vital Signs/Intake and Output Vital Signs (last 24 hours): Temp Pulse Resp BP Pulse Ox 98.3 F 125 H 18 142/100 H 67 L 03/16/17 08:00 03/16/17 11:00 03/16/17 11:00 03/16/17 11:00 03/16/17 11:00 Intake and Output: 03/16/17 03/16/17 06:59 18:59 Intake Total 1650 900 Output Total 1650 200 Balance 0 700 - Medications Medications: Current Medications Amlodipine Besylate (Norvasc) 10 mg PO DAILY [facility] Famotidine (Pepcid) 20 mg IVP Q12 [facility] Last Admin: 03/16/17 10:51 Dose: 20 mg Fenofibrate (Tricor) 145 mg PO QPM [facility] Gabapentin (Neurontin) 100 mg PO TID [facility] Last Admin: 03/16/17 10:52 Dose: Not Given Heparin Sodium (Porcine) (Heparin) 5,000 units SC Q8 [facility] Last Admin: 03/16/17 05:25 Dose: 5,000 units Hydromorphone HCl (Dilaudid) 1 mg IVP Q4H PRN PRN Reason: Pain, severe (8-10) Last Admin: 03/16/17 06:01 Dose: 1 mg Lactated Ringer's (Lactated Ringer's) 1,000 mls @ 100 mls/hr IV .Q10H [facility] Last Admin: 03/16/17 10:53 Dose: Not Given Iohexol (Omnipaque 240 (50 Ml)) 50 ml PO ONCE PRN Last Admin: 03/16/17 10:51 Dose: 50 ml Lorazepam (Ativan) 1 mg IVP Q4H PRN PRN Reason: Symptoms of alcohol withdrawl [id number] Ethyl Esters (Lovaza) 1 gm PO BID [facility] Last Admin: 03/16/17 10:51 Dose: 1 gm Polyethylene Glycol (Miralax) 17 gm PO DAILY PRN PRN Reason: Constipation Last Admin: 03/14/17 09:20 Dose: 17 gm Potassium Phos/Sodium Phos (Neutra-Phos) 1 pkt PO AC [facility] Stop: 03/17/17 11:31 Trazodone HCl (Desyrel) 50 mg PO HS [facility] Last Admin: 03/15/17 21:32 Dose: 50 mg - Labs Labs: 03/16/17 06:13 03/16/17 06:13 PT 12.7 SECONDS (9.7-12.2) H 03/13/17 14:06 INR 1.1 03/13/17 14:06 - Constitutional Appears: Well - Head Exam Head Exam: ATRAUMATIC, NORMOCEPHALIC - Eye Exam Eye Exam: Normal appearance, PERRL - ENT Exam ENT Exam: Mucous Membranes Moist, Normal Oropharynx - Respiratory Exam Respiratory Exam: NORMAL BREATHING PATTERN - Cardiovascular Exam Cardiovascular Exam: +S1, +S2 - GI/Abdominal Exam GI & Abdominal Exam: Soft Additional comments: mild diffuse tenderness - Extremities Exam Extremities Exam: Normal Capillary Refill - Neurological Exam Neurological Exam: Alert, Oriented x3 - Psychiatric Exam Psychiatric exam: Normal Affect, Normal Mood - Skin Skin Exam: Dry Assessment and Plan - Assessment and Plan (Free Text) Assessment: 31 year old female with h/o etoh abuse admitted with acute pancreatitis. 1. Acute pancreatitis 2. Alcoholic hepatitis 3. Hypertriglyceridemia Plan: -received aggressive IV hydration with LR -full liquid diet as tolerated today -ok to reduce fluids to maintenance rate -no organ failure or signs of local complications -triglycerides have improved with IV insulin -continue pain control -continue hydration -therapy of hypertriglyceridemia per endocrinology -etoh abstinence counselling provided -will follow
--- NOTE | 2017-03-16 13:32 | PN ---
ENDOCRINOLOGY FOLLOWUP NOTE DATE: LOCATION: In ICU, room 6. SUBJECTIVE: This is a 31-year-old female with recent acute pancreatitis most likely alcohol induced from recent alcoholic intoxication and also with concomitant hypertriglyceridemia as noted thereof. She received vigorous IV hydration and intensive insulin therapy using an insulin drip on the patient with remarkable clinical and biochemical improvement thereof. Her liver transaminases have also improved accordingly as noted. The latest lipase level is now 2159 with a triglyceride level of 152 as noted. The latest chemistry showed a BUN of . Sodium 133, potassium 3.2, chloride 98, CO2 of 26, glucose 85, and creatinine 0.5. So, at this time, we will start her now on omega-3 fatty acids with 1 g given b.i.d. to start this morning as noted. We will also recommend fenofibrate instead of the gemfibrozil as ordered. We would recommend a dose of fenofibrate at 145 mg daily at bedtime as ordered. We will obtain serial chemistries and serial lipid panel and lipase levels as ordered. We will follow and advise accordingly. Asiya Sung MD
[2017-03-16] MEDS ORDERED: Iodixanol 320 MG/ML 100 ML BOTTLE IV ONE (13:36)
[2017-03-16 13:59] LABS: URINE BILIRUBIN NEGATIVE (NEGATIVE); URINE BLOOD NEGATIVE (NEGATIVE); URINE COLOR Yellow (YELLOW); URINE GLUCOSE (UA) NORMAL (Normal); URINE KETONE 1+ mg/dL (NEGATIVE); URINE LEUKOCYTE ESTERASE NEG Leu/uL (Negative); URINE PROTEIN NEGATIVE (NEGATIVE); WBC URINE < 1 /hpf (0-5)
--- NOTE | 2017-03-16 14:55 | CP.CCUPN ---
CCU Subjective - Physician Review Events Since Last Encounter (Free Text): 03/16/17 14:50 Patient seen and examined in the intensive care unit. Case discussed with house staff in the morning rounds. Patient is a vague and responsive with less abdominal pain CT of the abdomen and pelvis done reading results Seen by GI and diet advanced to full liquid Afebrile CCU Objective - Vital Signs / Intake & Output Vital Signs (Last 4 hours): Vital Signs Temp Pulse Resp BP Pulse Ox 03/16/17 14:00 105 H 18 148/108 H 03/16/17 13:00 106 H 18 146/105 H 03/16/17 12:00 98.5 F 107 H 16 137/102 H 03/16/17 11:00 125 H 18 142/100 H 67 L Intake and Output (Last 8hrs): Intake & Output 03/15/17 03/16/17 03/16/17 22:59 06:59 14:59 Intake Total 1891 504 6574 Output Total 1180 950 950 Balance 220 0 950 Intake: Intake, IV Amount 800 800 800 Left Distal Port Forearm 0 Left Proximal Port 800 800 800 Forearm Right Forearm 0 Right Wrist 0 Oral [phone] Output: Urine 1180 950 950 Urine, Voided 1180 950 950 Other: # Voids Urine, Voided 3 3 # Bowel Movements 1 - Physical Exam Head: Positive for: Atraumatic, Normocephalic Extroacular Muscles: Positive for: EOMI Mouth: Positive for: Dry Respiratory/Chest: Positive for: Clear to Auscultation. Negative for: Respiratory Distress, Accessory Muscle Use Cardiovascular: Positive for: Regular Rate and Rhythm, Normal S1, S2, Tachycardic Abdomen: Positive for: Tenderness, Distention, Other (Moderately diminished bowel sounds ). Negative for: Peritoneal Signs Upper Extremity: Positive for: Normal Inspection Lower Extremity: Positive for: Normal Inspection Neurological: Positive for: GCS=15, Speech Normal Skin: Positive for: Normal Color Psychiatric: Positive for: Alert, Oriented x 3 - Medications Active Medications: Active Medications Generic Name Dose Route Start Last Admin Trade Name Freq PRN Reason Stop Dose Admin Amlodipine Besylate 10 mg 03/17/17 10:00 Norvasc PO DAILY MONIKA Famotidine 20 mg 03/13/17 22:00 03/16/17 10:51 Pepcid IVP 20 mg Q12 MONIKA Administration Fenofibrate 145 mg 03/16/17 18:00 Tricor PO QPM MONIKA Gabapentin 100 mg 03/14/17 14:00 03/16/17 10:52 Neurontin PO Not Given TID MONIKA Heparin Sodium (Porcine) 5,000 units 03/14/17 14:00 03/16/17 13:36 Heparin SC 5,000 units Q8 MONIKA Administration Hydromorphone HCl 1 mg 03/13/17 14:29 03/16/17 13:15 Dilaudid IVP 1 mg Q4H PRN Administration Pain, severe (8-10) Lactated Ringer's 1,000 mls @ 100 mls/hr 03/13/17 22:12 03/16/17 10:53 Lactated Ringer's IV Not Given .Q10H MONIKA Iohexol 50 ml 03/16/17 10:35 03/16/17 10:51 Omnipaque 240 (50 Ml) PO 50 ml ONCE PRN Administration Lorazepam 1 mg 03/13/17 19:14 Ativan IVP Q4H PRN Symptoms of alcohol withdrawl Rmozz-1-Lyov Ethyl Esters 1 gm 03/16/17 10:00 03/16/17 10:51 Lovaza PO 1 gm BID MONIKA Administration Polyethylene Glycol 17 gm 03/14/17 08:05 03/14/17 09:20 Miralax PO 17 gm DAILY PRN Administration Constipation Potassium Phos/Sodium Phos 1 pkt 03/16/17 11:30 03/16/17 11:56 Neutra-Phos PO 03/17/17 11:31 1 pkt AC MONIKA Administration Trazodone HCl 50 mg 03/14/17 22:00 03/15/17 21:32 Desyrel PO 50 mg HS MONIKA Administration - Patient Studies Lab Studies: Lab Studies 03/16/17 03/16/17 03/16/17 Range/Units 13:51 06:13 06:13 WBC 8.7 (4.8-10.8) K/uL RBC 3.17 L (3.80-5.20) Mil/uL Hgb 10.8 L (11.0-16.0) g/dL Hct 30.8 L (34.0-47.0) % MCV 97.4 D (81.0-99.0) fL MCH 34.0 H (27.0-31.0) pg MCHC 34.9 (33.0-37.0) g/dL RDW 13.2 (11.5-14.5) % Plt Count 86 L (130-400) K/uL MPV 10.2 (7.2-11.7) fL Neut % (Auto) 80.1 H (50.0-75.0) % Lymph % (Auto) 13.7 L (20.0-40.0) % Emery % (Auto) 5.5 (0.0-10.0) % Eos % (Auto) 0.4 (0.0-4.0) % Baso % (Auto) 0.3 (0.0-2.0) % Neut # 7.0 (1.8-7.0) K/uL Lymph # 1.2 (1.0-4.3) K/uL Emery # 0.5 (0.0-0.8) K/uL Eos # 0.0 (0.0-0.7) K/uL Baso # 0.0 (0.0-0.2) K/uL Puncture Site pCO2 (35-45) mm/Hg pO2 (80-100) mm/Hg HCO3 (21-28) mmol/L ABG pH (7.35-7.45) ABG Total CO2 (22-28) mmol/L ABG O2 Saturation (95-98) % ABG Base Excess (-2.0-3.0) mmol/L Carroll Test ABG Potassium (3.6-5.2) mmol/L A-a O2 Difference mm/Hg Respiratory Index Sodium 133 (132-148) mmol/l Chloride 98 (98-107) mmol/L Glucose (65-105) mg/dl Lactate (0.7-2.1) mmol/L FiO2 % Potassium 3.2 L (3.6-5.2) mmol/L Carbon Dioxide 26 (22-30) mmol/L Anion Gap 12 (10-20) BUN 2 L (7-17) mg/dL Creatinine 0.5 L (0.7-1.2) mg/dL Est GFR ( Amer) > 60 Est GFR (Non-Af Amer) > 60 POC Glucose (mg/dL) (65-110) mg/dL Random Glucose 85 (65-105) mg/dL Calcium 8.5 L (8.6-10.4) mg/dl Phosphorus 1.1 L (2.5-4.5) mg/dL Magnesium 1.8 (1.6-2.3) mg/dL Total Bilirubin 1.6 H (0.2-1.3) mg/dL AST 264 H D (14-36) U/L ALT 137 H (9-52) U/L Alkaline Phosphatase 93 (38-126) U/L Total Protein 5.7 L (6.3-8.3) g/dL Albumin 2.7 L (3.5-5.0) g/dL Globulin 3.0 (2.2-3.9) gm/dL Albumin/Globulin Ratio 0.9 L (1.0-2.1) Lipase 2159 H (23-300) U/L Arterial Blood Potassium (3.6-5.2) mmol/L Urine Color Yellow (YELLOW) Urine Clarity Clear (Clear) Urine pH 8.0 (5.0-8.0) Ur Specific Ramsey 1.006 (1.003-1.030) Urine Protein Negative (NEGATIVE) mg/dL Urine Glucose (UA) Normal (Normal) mg/dL Urine Ketones 1+ H (NEGATIVE) mg/dL Urine Blood Negative (NEGATIVE) Urine Nitrate Negative (NEGATIVE) Urine Bilirubin Negative (NEGATIVE) Urine Urobilinogen 4.0 H (0.2-1.0) mg/dL Ur Leukocyte Esterase Neg (Negative) Diane/uL Urine WBC (Auto) < 1 (0-5) /hpf Liver/Kid Microsomes Ab (<=20.0) U 03/16/17 03/15/17 03/15/17 Range/Units 05:31 21:25 16:25 WBC (4.8-10.8) K/uL RBC (3.80-5.20) Mil/uL Hgb (11.0-16.0) g/dL Hct (34.0-47.0) % MCV (81.0-99.0) fL MCH (27.0-31.0) pg MCHC (33.0-37.0) g/dL RDW (11.5-14.5) % Plt Count (130-400) K/uL MPV (7.2-11.7) fL Neut % (Auto) (50.0-75.0) % Lymph % (Auto) (20.0-40.0) % Emery % (Auto) (0.0-10.0) % Eos % (Auto) (0.0-4.0) % Baso % (Auto) (0.0-2.0) % Neut # (1.8-7.0) K/uL Lymph # (1.0-4.3) K/uL Emery # (0.0-0.8) K/uL Eos # (0.0-0.7) K/uL Baso # (0.0-0.2) K/uL Puncture Site Rr pCO2 32 L (35-45) mm/Hg pO2 62 L (80-100) mm/Hg HCO3 27.7 (21-28) mmol/L ABG pH 7.52 H (7.35-7.45) ABG Total CO2 27.1 (22-28) mmol/L ABG O2 Saturation 96.2 (95-98) % ABG Base Excess 3.7 H (-2.0-3.0) mmol/L Carroll Test Pos ABG Potassium 2.9 L (3.6-5.2) mmol/L A-a O2 Difference 48.0 mm/Hg Respiratory Index 0.8 Sodium 138.0 (132-148) mmol/l Chloride 106.0 (98-107) mmol/L Glucose 95 (65-105) mg/dl Lactate 1.1 (0.7-2.1) mmol/L FiO2 21.0 % Potassium (3.6-5.2) mmol/L Carbon Dioxide (22-30) mmol/L Anion Gap (10-20) BUN (7-17) mg/dL Creatinine (0.7-1.2) mg/dL Est GFR ( Amer) Est GFR (Non-Af Amer) POC Glucose (mg/dL) 101 91 (65-110) mg/dL Random Glucose (65-105) mg/dL Calcium (8.6-10.4) mg/dl Phosphorus (2.5-4.5) mg/dL Magnesium (1.6-2.3) mg/dL Total Bilirubin (0.2-1.3) mg/dL AST (14-36) U/L ALT (9-52) U/L Alkaline Phosphatase (38-126) U/L Total Protein (6.3-8.3) g/dL Albumin (3.5-5.0) g/dL Globulin (2.2-3.9) gm/dL Albumin/Globulin Ratio (1.0-2.1) Lipase (23-300) U/L Arterial Blood Potassium 2.9 L (3.6-5.2) mmol/L Urine Color (YELLOW) Urine Clarity (Clear) Urine pH (5.0-8.0) Ur Specific Ramsey (1.003-1.030) Urine Protein (NEGATIVE) mg/dL Urine Glucose (UA) (Normal) mg/dL Urine Ketones (NEGATIVE) mg/dL Urine Blood (NEGATIVE) Urine Nitrate (NEGATIVE) Urine Bilirubin (NEGATIVE) Urine Urobilinogen (0.2-1.0) mg/dL Ur Leukocyte Esterase (Negative) Diane/uL Urine WBC (Auto) (0-5) /hpf Liver/Kid Microsomes Ab (<=20.0) U // Range/Units 15:33 WBC (4.8-10.8) K/uL RBC (3.80-5.20) Mil/uL Hgb (11.0-16.0) g/dL Hct (34.0-47.0) % MCV (81.0-99.0) fL MCH (27.0-31.0) pg MCHC (33.0-37.0) g/dL RDW (11.5-14.5) % Plt Count (130-400) K/uL MPV (7.2-11.7) fL Neut % (Auto) (50.0-75.0) % Lymph % (Auto) (20.0-40.0) % Emery % (Auto) (0.0-10.0) % Eos % (Auto) (0.0-4.0) % Baso % (Auto) (0.0-2.0) % Neut # (1.8-7.0) K/uL Lymph # (1.0-4.3) K/uL Emery # (0.0-0.8) K/uL Eos # (0.0-0.7) K/uL Baso # (0.0-0.2) K/uL Puncture Site pCO2 (35-45) mm/Hg pO2 (80-100) mm/Hg HCO3 (21-28) mmol/L ABG pH (7.35-7.45) ABG Total CO2 (22-28) mmol/L ABG O2 Saturation (95-98) % ABG Base Excess (-2.0-3.0) mmol/L Carroll Test ABG Potassium (3.6-5.2) mmol/L A-a O2 Difference mm/Hg Respiratory Index Sodium (132-148) mmol/l Chloride (98-107) mmol/L Glucose (65-105) mg/dl Lactate (0.7-2.1) mmol/L FiO2 % Potassium (3.6-5.2) mmol/L Carbon Dioxide (22-30) mmol/L Anion Gap (10-20) BUN (7-17) mg/dL Creatinine (0.7-1.2) mg/dL Est GFR ( Amer) Est GFR (Non-Af Amer) POC Glucose (mg/dL) (65-110) mg/dL Random Glucose (65-105) mg/dL Calcium (8.6-10.4) mg/dl Phosphorus (2.5-4.5) mg/dL Magnesium (1.6-2.3) mg/dL Total Bilirubin (0.2-1.3) mg/dL AST (14-36) U/L ALT (9-52) U/L Alkaline Phosphatase (38-126) U/L Total Protein (6.3-8.3) g/dL Albumin (3.5-5.0) g/dL Globulin (2.2-3.9) gm/dL Albumin/Globulin Ratio (1.0-2.1) Lipase (23-300) U/L Arterial Blood Potassium (3.6-5.2) mmol/L Urine Color (YELLOW) Urine Clarity (Clear) Urine pH (5.0-8.0) Ur Specific Ramsey (1.003-1.030) Urine Protein (NEGATIVE) mg/dL Urine Glucose (UA) (Normal) mg/dL Urine Ketones (NEGATIVE) mg/dL Urine Blood (NEGATIVE) Urine Nitrate (NEGATIVE) Urine Bilirubin (NEGATIVE) Urine Urobilinogen (0.2-1.0) mg/dL Ur Leukocyte Esterase (Negative) Diane/uL Urine WBC (Auto) (0-5) /hpf Liver/Kid Microsomes Ab <=20.0 (<=20.0) U Laboratory Results - last 24 hr 03/13/17 03/15/17 03/15/17 15:33 16:25 21:25 WBC RBC Hgb Hct MCV MCH MCHC RDW Plt Count MPV Neut % (Auto) Lymph % (Auto) Emery % (Auto) Eos % (Auto) Baso % (Auto) Neut # Lymph # Emery # Eos # Baso # Puncture Site pCO2 pO2 HCO3 ABG pH ABG Total CO2 ABG O2 Saturation ABG Base Excess Carroll Test ABG Potassium A-a O2 Difference Respiratory Index Sodium Chloride Glucose Lactate FiO2 Potassium Carbon Dioxide Anion Gap BUN Creatinine Est GFR ( Amer) Est GFR (Non-Af Amer) POC Glucose (mg/dL) 91 101 Random Glucose Calcium Phosphorus Magnesium Total Bilirubin AST ALT Alkaline Phosphatase Total Protein Albumin Globulin Albumin/Globulin Ratio Lipase Arterial Blood Potassium Urine Color Urine Clarity Urine pH Ur Specific Ramsey Urine Protein Urine Glucose (UA) Urine Ketones Urine Blood Urine Nitrate Urine Bilirubin Urine Urobilinogen Ur Leukocyte Esterase Urine WBC (Auto) Liver/Kid Microsomes Ab <=20.0 03/16/17 03/16/17 03/16/17 05:31 06:13 06:13 WBC 8.7 RBC 3.17 L Hgb 10.8 L Hct 30.8 L MCV 97.4 D MCH 34.0 H MCHC 34.9 RDW 13.2 Plt Count 86 L MPV 10.2 Neut % (Auto) 80.1 H Lymph % (Auto) 13.7 L Emery % (Auto) 5.5 Eos % (Auto) 0.4 Baso % (Auto) 0.3 Neut # 7.0 Lymph # 1.2 Emery # 0.5 Eos # 0.0 Baso # 0.0 Puncture Site Rr pCO2 32 L pO2 62 L HCO3 27.7 ABG pH 7.52 H ABG Total CO2 27.1 ABG O2 Saturation 96.2 ABG Base Excess 3.7 H Carroll Test Pos ABG Potassium 2.9 L A-a O2 Difference 48.0 Respiratory Index 0.8 Sodium 138.0 133 Chloride 106.0 98 Glucose 95 Lactate 1.1 FiO2 21.0 Potassium 3.2 L Carbon Dioxide 26 Anion Gap 12 BUN 2 L Creatinine 0.5 L Est GFR ( Amer) > 60 Est GFR (Non-Af Amer) > 60 POC Glucose (mg/dL) Random Glucose 85 Calcium 8.5 L Phosphorus 1.1 L Magnesium 1.8 Total Bilirubin 1.6 H AST 264 H D ALT 137 H Alkaline Phosphatase 93 Total Protein 5.7 L Albumin 2.7 L Globulin 3.0 Albumin/Globulin Ratio 0.9 L Lipase 2159 H Arterial Blood Potassium 2.9 L Urine Color Urine Clarity Urine pH Ur Specific Ramsey Urine Protein Urine Glucose (UA) Urine Ketones Urine Blood Urine Nitrate Urine Bilirubin Urine Urobilinogen Ur Leukocyte Esterase Urine WBC (Auto) Liver/Kid Microsomes Ab 03/16/17 13:51 WBC RBC Hgb Hct MCV MCH MCHC RDW Plt Count MPV Neut % (Auto) Lymph % (Auto) Emery % (Auto) Eos % (Auto) Baso % (Auto) Neut # Lymph # Emery # Eos # Baso # Puncture Site pCO2 pO2 HCO3 ABG pH ABG Total CO2 ABG O2 Saturation ABG Base Excess Carroll Test ABG Potassium A-a O2 Difference Respiratory Index Sodium Chloride Glucose Lactate FiO2 Potassium Carbon Dioxide Anion Gap BUN Creatinine Est GFR ( Amer) Est GFR (Non-Af Amer) POC Glucose (mg/dL) Random Glucose Calcium Phosphorus Magnesium Total Bilirubin AST ALT Alkaline Phosphatase Total Protein Albumin Globulin Albumin/Globulin Ratio Lipase Arterial Blood Potassium Urine Color Yellow Urine Clarity Clear Urine pH 8.0 Ur Specific Ramsey 1.006 Urine Protein Negative Urine Glucose (UA) Normal Urine Ketones 1+ H Urine Blood Negative Urine Nitrate Negative Urine Bilirubin Negative Urine Urobilinogen 4.0 H Ur Leukocyte Esterase Neg Urine WBC (Auto) < 1 Liver/Kid Microsomes Ab Fingerstick Blood Sugar Results: 91 Critical Care Progress Note - Nutrition Nutrition: Nutrition Category Date Time Status Liquid Diet [DIET] Diets 03/16/17 Lunch Active Assessment/Plan (1) Pancreatitis Current Visit: Yes Status: Acute Comment: Patient condition improving Reduce IV fluids Continue pain medication as needed Diet advance to clear liquids Repeat CT of the abdomen and pelvis (2) High triglycerides Current Visit: Yes Status: Acute (3) Abdominal pain Current Visit: No Status: Acute
--- NOTE | 2017-03-16 17:35 | CT ---
PROCEDURE: CT Abdomen and Pelvis with contrast HISTORY: right CVA tenderness, pancreatitis COMPARISON: Comparison is made to the previous study dated 03/13/2017 previous ultrasound dated 03/05/2017 TECHNIQUE: Contrast dose: 100 mL Visipaque. Axial and reformatted coronal and sagittal CT images of the abdomen and pelvis were obtained before and after IV contrast administration using department pancreatic protocol. Radiation dose: Total exam DLP = 1324.11 mGy-cm. This CT exam was performed using one or more of the following dose reduction techniques: Automated exposure control, adjustment of the mA and/or kV according to patient size, and/or use of iterative reconstruction technique. FINDINGS: LOWER THORAX: There are bilateral small to moderate pleural effusions associated with bilateral lower lobe compressed atelectasis. LIVER: The liver is moderately enlarged demonstrate moderate to severe diffuse low-attenuation consistent with severe steatosis. No evidence of enhance mass lesion. GALLBLADDER AND BILE DUCTS: No evidence of radiodense gallstones or acute cholecystitis. PANCREAS: The pancreas is again fvzbhw-[id number]-ybxbyzwohi enlarged surrounding with inflammatory changes and small amount of fluid consistent with the patient's history of acute pancreatitis. SPLEEN: Unremarkable. ADRENALS: Unremarkable. No mass. KIDNEYS AND URETERS: Unremarkable. No hydronephrosis. No solid mass. VASCULATURE: Unremarkable. No aortic aneurysm. BOWEL: The stomach is not distended. This suspicious for diffuse gastric wall thickening. There are also mildly dilated small bowel loops demonstrate mild wall thickening in the mid abdomen. No evidence of bowel obstruction. APPENDIX: No evidence of appendicitis. PERITONEUM: There is a small amount of free fluid in the abdomen and pelvis likely related to pancreatitis. No evidence of free air. LYMPH NODES: Unremarkable. No enlarged lymph nodes. BLADDER: Unremarkable. REPRODUCTIVE: Unremarkable. BONES: No acute fracture. OTHER FINDINGS: None. IMPRESSION: No evidence of pancreatic lesion or dilated main pancreatic duct. Qtzemy-[id number]-pjydsqgydn diffuse enlargement of the pancreas surrounding with inflammatory changes and small amount of fluid consistent with acute pancreatitis. No evidence of biliary tree obstruction. Severe hepatic steatosis again noted. Small amount of free fluid in the abdomen and pelvis.
[2017-03-17 07:02] LABS: CHLORIDE 97 mmol/L (98-107)
[2017-03-17 07:03] LABS: POTASSIUM 2.8 mmol/L (3.6-5.2); SODIUM 135 mmol/L (132-148)
[2017-03-17 07:05] LABS: ALB/GLOB RATIO 0.8 (1.0-2.1); ALKALINE PHOSPHATASE 132 U/L (38-126); AST/SGOT 190 U/L (14-36); BASO % 0.3 % (0.0-2.0); BILIRUBIN,TOTAL 1.3 mg/dL (0.2-1.3); CARBON DIOXIDE 28 mmol/L (22-30); EOS # 0.1 K/uL (0.0-0.7); EOS % 0.8 % (0.0-4.0); GFR AFRICAN-AMERICAN > 60; HEMATOCRIT 32.5 % (34.0-47.0); LYMPH # 1.3 K/uL (1.0-4.3); LYMPH % 16.9 % (20.0-40.0); MEAN CORPUSCULAR HEMOGLOBIN 34.1 pg (27.0-31.0); MEAN CORPUSCULAR HGB CONC 34.7 g/dL (33.0-37.0); MEAN PLATELET VOLUME 9.1 fL (7.2-11.7); MONO # 0.8 K/uL (0.0-0.8); MONO % 10.2 % (0.0-10.0); NRBC % 0.3 % (0.0-2.0); RED CELL DISTRIBUTION WIDTH 13.4 % (11.5-14.5); TOTAL PROTEIN 6.4 g/dL (6.3-8.3); WHITE BLOOD COUNT 7.5 K/uL (4.8-10.8)
[2017-03-17 07:06] LABS: ALT/SGPT 112 U/L (9-52); BLOOD UREA NITROGEN < 2 mg/dL (7-17); CALCIUM 9.1 mg/dl (8.6-10.4); GLUCOSE,RANDOM 86 mg/dL (65-105); MAGNESIUM 1.7 mg/dL (1.6-2.3); PHOSPHOROUS 2.1 mg/dL (2.5-4.5)
--- NOTE | 2017-03-17 08:46 | CP.PCM.PN ---
Subjective - Date & Time of Evaluation Date of Evaluation: 03/17/17 Time of Evaluation: 08:40 - Subjective Subjective: Medical Attending Note: Patient seen and examined. Patient reports she tolerated clears yesterday. She attempted soft diet however she reports she had stool incontinence mix of solid and liquid. Denies chest pain, denies palpitations, denies shortness of breathe , improved abdominal pain, denies nausea, reports frequency, denies dysuria. Objective - Vital Signs/Intake and Output Vital Signs (last 24 hours): Temp Pulse Resp BP Pulse Ox 98.4 F 108 H 17 148/98 H 98 03/17/17 06:00 03/17/17 07:00 03/17/17 07:00 03/17/17 07:00 03/16/17 15:55 Intake and Output: 03/17/17 03/17/17 06:59 18:59 Intake Total 1580 100 Output Total 1100 0 Balance 480 100 - Medications Medications: Current Medications Amlodipine Besylate (Norvasc) 10 mg PO DAILY [facility] Famotidine (Pepcid) 20 mg IVP Q12 [facility] Last Admin: 03/16/17 21:18 Dose: 20 mg Fenofibrate (Tricor) 145 mg PO QPM [facility] Last Admin: 03/16/17 17:36 Dose: 145 mg Gabapentin (Neurontin) 100 mg PO TID [facility] Last Admin: 03/16/17 17:39 Dose: Not Given Heparin Sodium (Porcine) (Heparin) 5,000 units SC Q8 [facility] Last Admin: 03/17/17 06:15 Dose: 5,000 units Hydromorphone HCl (Dilaudid) 1 mg IVP Q4H PRN PRN Reason: Pain, severe (8-10) Last Admin: 03/17/17 02:56 Dose: 1 mg Iohexol (Omnipaque 240 (50 Ml)) 50 ml PO ONCE PRN Last Admin: 03/16/17 10:51 Dose: 50 ml Lorazepam (Ativan) 1 mg IVP Q4H PRN PRN Reason: Symptoms of alcohol withdrawl Swuuv-2-Lgxf Ethyl Esters (Lovaza) 1 gm PO BID [facility] Last Admin: 03/16/17 17:36 Dose: 1 gm Polyethylene Glycol (Miralax) 17 gm PO DAILY PRN PRN Reason: Constipation Last Admin: 03/14/17 09:20 Dose: 17 gm Potassium Phos/Sodium Phos (Neutra-Phos) 1 pkt PO AC MONIKA Stop: 03/17/17 11:31 Last Admin: 03/16/17 17:38 Dose: 1 pkt Trazodone HCl (Desyrel) 50 mg PO HS MONIKA Last Admin: 03/16/17 21:18 Dose: 50 mg - Labs Labs: 03/17/17 06:58 03/17/17 06:58 PT 12.7 SECONDS (9.7-12.2) H 03/13/17 14:06 INR 1.1 03/13/17 14:06 - Constitutional Appears: Non-toxic, No Acute Distress - Head Exam Head Exam: NORMAL INSPECTION - Eye Exam Eye Exam: EOMI - ENT Exam ENT Exam: Mucous Membranes Moist - Respiratory Exam Respiratory Exam: Clear to Ausculation Bilateral, NORMAL BREATHING PATTERN. absent: Rales, Rhonchi, Wheezes - Cardiovascular Exam Cardiovascular Exam: RRR, +S1, +S2. absent: Tachycardia - GI/Abdominal Exam GI & Abdominal Exam: Distended, Soft, Tenderness (improved), Normal Bowel Sounds , Rebound. absent: Firm, Guarding, Rigid - Extremities Exam Extremities Exam: Normal Capillary Refill. absent: Pedal Edema, Tenderness - Back Exam Back Exam: absent: CVA tenderness (L), CVA tenderness (R), rash noted - Neurological Exam Neurological Exam: Alert, Awake, Oriented x3 - Psychiatric Exam Psychiatric exam: Normal Affect, Normal Mood - Skin Skin Exam: Dry, Intact, Normal Color, Warm Assessment and Plan (1) Pancreatitis Status: Acute (2) High triglycerides Status: Chronic (3) Anxiety Status: Chronic (4) Hypertension Status: Chronic (5) Prophylactic measure Status: Acute Attending/Attestation - Attestation I have personally seen and examined this patient.: Yes I have fully participated in the care of the patient.: Yes I have reviewed all pertinent clinical information, including history, physical exam and plan: Yes Notes (Text): 1) Acute Pancreatitis Lactic acidosis (resolved) * Patient seen, examined and case discussed with ICU, accepted to ICU; management per ICU * Alphonso's Criteria: 2 (AST>250, LDH>350); in 48 hours Calcium: 7.6, Base deficit (10-->22), Fluids >6L * GI (Dr. Okeefe) on the case-->help appreciated * General surgery (Dr. Snyder) on the case-->help appreciated-->no surgical intervention * NPO-->liquid diet * Patient given 3 fluid boluses in the ED< patient started on LR 250cc/hr--> changed D5NS d/c 03/15 * Resumed on LR 100cc'hr * Lactate: 9.5-->6.5-->1.1 * T, LDL: 252, HDL: 88 * Off insulin drip * Improved to 152 * Endocrinology: recommending for Cadwell 3 FA 1 gm twice a day and fenofibrate 145/160mg qHS which ever is available * Elevated alcohol on admission * HIV: negative * Tylenol level: Low * Abdominal US (03/05/17): Enlarged liver measuring up to 20.6cm in length with diffuse increased echogenicity suggestive for fatty infiltration * Chest CT/Abdomen/Pelvis (03/13/17): Extensive peripancreatic inflammatory stranding and fluid which tracks inferiorly as well as pancreatic edema. Constellation of findings consistent with acute pancreatitis. Correlate clinically including amylase and lipase. Hepatomegaly. Severe diffuse hypoattenuation of the liver compatible with hepatic steatosis. 2.0 x 4.2 cm more focal hypodensity within the inferior right hepatic lobe near the portal confluence, possibly more focal fatty infiltration. Contrast within the gallbladder presumably due to vicarious excretion. Small to moderate pelvic free fluid. * Pancreatic Protocol (03/16/17): no evidence of pancreatic lesion or dilated main pancreatic duct. Mildly to moderately diffuse enlargement of the pancreas surrounding with inflammatory changes and small amount of fluid consistent with acute pancreatitis. No evidence of biliary tree obstruction. Severe hepatic steatosis again noted. Small amount of free fluid in abdomen and pelvis * UDS: negative (opioid; patient is on dilaudid in hospital) 2) Transaminitis * GI (Dr. Okeefe) on the case-->help appreciated * Downtrending * Negative Anti-mitochondrial * Negative Anti-smooth muscle * Liver/kidney microsome ab * ISABEL: negative * Hepatitis negative * HIV negative 3) Hypertrigylceridemia * T, LDL: 252, HDL: 88 on admission * 03/14: cannot be registered * 03/15: 152 improved * Patient currently not on any medication as outpatient * Endocrinology Dr. Sung-->help apppreciated * Was on Insulin drip and currently off Insulin drip * Endocrinology: recommending for Cadwell 3 FA 1 gm twice a day and fenofibrate 145/160mg qHS which ever is available 4) Hypertension * LR 100 cc/hr * C/W Norvasc 10mg PO daily * Start Lisinopril 5mg PO daily 5) Tachycardia * TSH: within normal limits * possible secondary to pain * Patient is saturating * Patient appears euvoleumic 6) Prior history of URI * CT Chest obtained * Strep pneumoniae: negative * Legionella: negative * Mycoplasma IgM: negative 7) Anxiety, PTSD * Psych consult (Dr. Deshpande) help appreciated * Ativan 1mg IV Q4 HR PRN anxiety * Gabapentin 100mg PO TID * Trazodone 50mg PO qHS * per psych, patient is refusing anti-depressant 8) Low Magnesium * within normal today * Replete 9) Hypokalemia * replete today 10) Hypophosphatemia * replete today 11) Thrombocytopenia * Monitor platelets * Improving * Patient is on heparin subq8h * Note: patient has pancreatitis 12) Frequency * f/u urine studies from 03/16 * Likely due to fluid resuscitation 13) Prophylaxis: * DVT: SCDs; Heparin 5000 units subq8H * GI: Pepcid 20mg IVP Q12H
[2017-03-17] MEDS ORDERED: Magnesium Sulfate 1 gm in D5W 1 GM/100 ML BAG IVPB ONE (08:50)
[2017-03-17] MEDS: Omega-3-Acid Ethyl Esters 1 GM Cap PO SCH ×2 (09:05→18:08)
[2017-03-17] MEDS: Potassium Chloride 20 mEq ER Tab PO SCH ×2 (09:05→15:01)
[2017-03-17] MEDS: Potassium & Sodium Phosphate PO SCH ×2 (09:06→12:22)
--- NOTE | 2017-03-17 10:09 | CP.PCM.PN ---
Subjective - Date & Time of Evaluation Date of Evaluation: 03/17/17 Time of Evaluation: 07:00 - Subjective Subjective: GENERAL SURGERY PROGRESS NOTE FOR DR. STEPHEN Patient seen and examined at bedside. She reports some mild pain in the epigastric area. She is tolerating full liquid diet and denies nausea or vomiting. Objective - Vital Signs/Intake and Output Vital Signs (last 24 hours): Temp Pulse Resp BP Pulse Ox 98.4 F 101 H 15 159/116 H 98 03/17/17 06:00 03/17/17 09:00 03/17/17 09:00 03/17/17 09:01 03/16/17 15:55 Intake and Output: 03/17/17 03/17/17 06:59 18:59 Intake Total 1580 640 Output Total 1100 300 Balance 480 340 - Medications Medications: Current Medications Amlodipine Besylate (Norvasc) 10 mg PO DAILY [facility] Famotidine (Pepcid) 20 mg IVP Q12 [facility] Last Admin: 03/17/17 09:06 Dose: 20 mg Fenofibrate (Tricor) 145 mg PO QPM [facility] Last Admin: 03/16/17 17:36 Dose: 145 mg Gabapentin (Neurontin) 100 mg PO TID [facility] Last Admin: 03/17/17 09:06 Dose: 100 mg Heparin Sodium (Porcine) (Heparin) 5,000 units SC Q8 [facility] Last Admin: 03/17/17 06:15 Dose: 5,000 units Hydromorphone HCl (Dilaudid) 1 mg IVP Q4H PRN PRN Reason: Pain, severe (8-10) Last Admin: 03/17/17 09:13 Dose: 1 mg Iohexol (Omnipaque 240 (50 Ml)) 50 ml PO ONCE PRN Last Admin: 03/16/17 10:51 Dose: 50 ml Lisinopril (Zestril) 5 mg PO DAILY [facility] Lorazepam (Ativan) 1 mg IVP Q4H PRN PRN Reason: Symptoms of alcohol withdrawl [id number] Ethyl Esters (Lovaza) 1 gm PO BID [facility] Last Admin: 03/17/17 09:05 Dose: 1 gm Polyethylene Glycol (Miralax) 17 gm PO DAILY PRN PRN Reason: Constipation Last Admin: 03/14/17 09:20 Dose: 17 gm Potassium Chloride (K-Dur 20 Meq Er Tab) 40 meq PO Q4H [facility] Stop: 03/17/17 13:01 Last Admin: 03/17/17 09:05 Dose: 40 meq Potassium Phos/Sodium Phos (Neutra-Phos) 1 pkt PO AC [facility] Stop: 03/17/17 11:31 Last Admin: 03/17/17 09:06 Dose: 1 pkt Trazodone HCl (Desyrel) 50 mg PO HS [facility] Last Admin: 03/16/17 21:18 Dose: 50 mg - Labs Labs: 03/17/17 06:58 03/17/17 06:58 PT 12.7 SECONDS (9.7-12.2) H 03/13/17 14:06 INR 1.1 03/13/17 14:06 - Constitutional Appears: Non-toxic, No Acute Distress - Head Exam Head Exam: ATRAUMATIC, NORMAL INSPECTION - Respiratory Exam Respiratory Exam: NORMAL BREATHING PATTERN. absent: Respiratory Distress - Cardiovascular Exam Cardiovascular Exam: Tachycardia, +S1, +S2 - GI/Abdominal Exam GI & Abdominal Exam: Soft. absent: Distended, Firm, Guarding, Rigid, Tenderness , Rebound - Neurological Exam Neurological Exam: Alert, Awake, Oriented x3 - Psychiatric Exam Psychiatric exam: Normal Affect, Normal Mood - Skin Skin Exam: Dry, Intact, Normal Color, Warm Assessment and Plan - Assessment and Plan (Free Text) Assessment: 31yo F with alcoholic pancreatitis - Afebrile, mild tachycardia (improved), hypertensive - Hypokalemia - being replaced by medicine team - IV fluids at maintanence rate - Encourage OOB and ambulation - No surgical intervention necessary at this time - Discussed plan with Dr. Claudio Carey PGY-3
[2017-03-17] MEDS ORDERED: Potassium Phosphate 15 MMOLE in Sodium Chloride 0.9% 250 ML IV ONE (10:30)
--- NOTE | 2017-03-17 12:04 | CP.PCM.PN ---
Subjective - Date & Time of Evaluation Date of Evaluation: 03/17/17 Time of Evaluation: 12:01 - Subjective Subjective: RFV: Pancreatitis S: No acute events. Pain is improving. Still with 6-7/10 diffuse discomfort. Tolerating liquids fine. no vomiting or fever. overall improving. Objective - Vital Signs/Intake and Output Vital Signs (last 24 hours): Temp Pulse Resp BP Pulse Ox 97.4 F L 88 10 L 145/103 H 98 03/17/17 10:00 03/17/17 11:00 03/17/17 11:00 03/17/17 11:00 03/16/17 15:55 Intake and Output: 03/17/17 03/17/17 06:59 18:59 Intake Total 1580 860 Output Total 1100 300 Balance 480 560 - Medications Medications: Current Medications Amlodipine Besylate (Norvasc) 10 mg PO DAILY [facility] Famotidine (Pepcid) 20 mg IVP Q12 [facility] Last Admin: 03/17/17 09:06 Dose: 20 mg Fenofibrate (Tricor) 145 mg PO QPM [facility] Last Admin: 03/16/17 17:36 Dose: 145 mg Gabapentin (Neurontin) 100 mg PO TID [facility] Last Admin: 03/17/17 09:06 Dose: 100 mg Heparin Sodium (Porcine) (Heparin) 5,000 units SC Q8 [facility] Last Admin: 03/17/17 06:15 Dose: 5,000 units Hydromorphone HCl (Dilaudid) 1 mg IVP Q4H PRN PRN Reason: Pain, severe (8-10) Last Admin: 03/17/17 09:13 Dose: 1 mg Potassium Phosphate 15 mmole/ (Sodium Chloride) 255 mls @ 63 mls/hr IV ONCE ONE Stop: 03/17/17 14:32 Last Admin: 03/17/17 11:59 Dose: 63 mls/hr Iohexol (Omnipaque 240 (50 Ml)) 50 ml PO ONCE PRN Last Admin: 03/16/17 10:51 Dose: 50 ml Lisinopril (Zestril) 5 mg PO DAILY [facility] Last Admin: 03/17/17 12:00 Dose: 5 mg Lorazepam (Ativan) 1 mg IVP Q4H PRN PRN Reason: Symptoms of alcohol withdrawl [id number]-8-[id number] Ethyl Esters (Lovaza) 1 gm PO BID [facility] Last Admin: 03/17/17 09:05 Dose: 1 gm Polyethylene Glycol (Miralax) 17 gm PO DAILY PRN PRN Reason: Constipation Last Admin: 03/14/17 09:20 Dose: 17 gm Potassium Chloride (K-Dur 20 Meq Er Tab) 40 meq PO Q4H [facility] Stop: 03/17/17 13:01 Last Admin: 03/17/17 09:05 Dose: 40 meq Trazodone HCl (Desyrel) 50 mg PO HS [facility] Last Admin: 03/16/17 21:18 Dose: 50 mg - Labs Labs: 03/17/17 06:58 03/17/17 06:58 PT 12.7 SECONDS (9.7-12.2) H 03/13/17 14:06 INR 1.1 03/13/17 14:06 - Constitutional Appears: No Acute Distress, Chronically Ill - Eye Exam Eye Exam: Normal appearance. absent: Scleral icterus Pupil Exam: PERRL - ENT Exam ENT Exam: Mucous Membranes Moist - Respiratory Exam Respiratory Exam: NORMAL BREATHING PATTERN - Cardiovascular Exam Cardiovascular Exam: +S1, +S2 - GI/Abdominal Exam GI & Abdominal Exam: Soft. absent: Guarding, Tenderness - Neurological Exam Neurological Exam: Alert, Oriented x3 - Skin Skin Exam: Dry, Warm Assessment and Plan - Assessment and Plan (Free Text) Assessment: 31 year old female with h/o etoh abuse admitted with acute pancreatitis. 1. Acute pancreatitis 2. Alcoholic hepatitis 3. Hypertriglyceridemia Plan: -received aggressive IV hydration with LR -low fat diet today -no organ failure or signs of local complications on CT -triglycerides have improved with IV insulin, continue medication outpatient -continue pain control -suspect part of her pain is related to alcoholic hepatitis, her liver is massively enlarged up to 23 cm, encompassing most of her upper abdomen -etoh abstinence counselling provided again, no indication for steroids of alcoholic hepatitis -will sign off
--- NOTE | 2017-03-17 14:01 | CP.CCUPN ---
CCU Subjective - Physician Review Events Since Last Encounter (Free Text): 03/17/17 14:00 Patient seen and examined in the intensive care unit. Still complaining of abdominal pain but overall condition much improved Tolerating full liquid diet CAT scan of the abdomen noted CCU Objective - Vital Signs / Intake & Output Vital Signs (Last 4 hours): Vital Signs Pulse Resp BP 03/17/17 12:04 98 H 03/17/17 11:00 88 10 L 145/103 H 03/17/17 10:08 96 H Intake and Output (Last 8hrs): Intake & Output 03/16/17 03/17/17 03/17/17 22:59 06:59 14:59 Intake Total 1020 1040 923 Output Total 900 800 300 Balance 120 240 623 Intake: Intake, IV Amount 500 800 563 Left Proximal Port 500 800 563 Forearm Oral 520 240 360 Output: Urine 900 800 300 Urine, Voided 900 800 300 Other: # Bowel Movements 0 0 1 - Physical Exam Head: Positive for: Atraumatic, Normocephalic Extroacular Muscles: Positive for: EOMI Mouth: Positive for: Dry Respiratory/Chest: Positive for: Clear to Auscultation. Negative for: Respiratory Distress, Accessory Muscle Use Cardiovascular: Positive for: Regular Rate and Rhythm, Normal S1, S2, Tachycardic Abdomen: Positive for: Tenderness, Distention, Other (Moderately diminished bowel sounds ). Negative for: Peritoneal Signs Upper Extremity: Positive for: Normal Inspection Lower Extremity: Positive for: Normal Inspection Neurological: Positive for: GCS=15, Speech Normal Skin: Positive for: Normal Color Psychiatric: Positive for: Alert, Oriented x 3 - Medications Active Medications: Active Medications Generic Name Dose Route Start Last Admin Trade Name Freq PRN Reason Stop Dose Admin Amlodipine Besylate 10 mg 03/17/17 10:00 03/17/17 12:12 Norvasc PO 10 mg DAILY [facility] Administration Famotidine 20 mg 03/13/17 22:00 03/17/17 09:06 Pepcid IVP 20 mg Q12 [facility] Administration Fenofibrate 145 mg 03/16/17 18:00 03/16/17 17:36 Tricor PO 145 mg QPM [facility] Administration Gabapentin 100 mg 03/14/17 14:00 03/17/17 09:06 Neurontin PO 100 mg TID [facility] Administration Heparin Sodium (Porcine) 5,000 units 03/14/17 14:00 03/17/17 06:15 Heparin SC 5,000 units Q8 [facility] Administration Hydromorphone HCl 1 mg 03/13/17 14:29 03/17/17 09:13 Dilaudid IVP 1 mg Q4H PRN Administration Pain, severe (8-10) Potassium Phosphate 15 mmole/ 255 mls @ 63 mls/hr 03/17/17 10:30 03/17/17 11: 59 Sodium Chloride IV 03/17/17 14:32 63 mls/hr ONCE ONE Administration Iohexol 50 ml 03/16/17 10:35 03/16/17 10:51 Omnipaque 240 (50 Ml) PO 50 ml ONCE PRN Administration Lisinopril 5 mg 03/17/17 10:00 03/17/17 12:00 Zestril PO 5 mg DAILY [facility] Administration Lorazepam 1 mg 03/13/17 19:14 Ativan IVP Q4H PRN Symptoms of alcohol withdrawl [id number] Ethyl Esters 1 gm 03/16/17 10:00 03/17/17 09:05 Lovaza PO 1 gm BID [facility] Administration Polyethylene Glycol 17 gm 03/14/17 08:05 03/14/17 09:20 Miralax PO 17 gm DAILY PRN Administration Constipation Trazodone HCl 50 mg 03/14/17 22:00 03/16/17 21:18 Desyrel PO 50 mg HS [facility] Administration - Patient Studies Lab Studies: Microbiology Studies 03/16/17 09:11 Urine Culture - Final Urine,Clean Catch No Growth (<1,000 CFU/ML) Lab Studies 03/17/17 03/17/17 03/16/17 Range/Units 06:58 06:58 16:29 WBC 7.5 (4.8-10.8) K/uL RBC 3.31 L (3.80-5.20) Mil/uL Hgb 11.3 (11.0-16.0) g/dL Hct 32.5 L (34.0-47.0) % MCV 98.0 (81.0-99.0) fL MCH 34.1 H (27.0-31.0) pg MCHC 34.7 (33.0-37.0) g/dL RDW 13.4 (11.5-14.5) % Plt Count 119 L D (130-400) K/uL MPV 9.1 (7.2-11.7) fL Neut % (Auto) 71.8 (50.0-75.0) % Lymph % (Auto) 16.9 L (20.0-40.0) % [place] % (Auto) 10.2 H (0.0-10.0) % Eos % (Auto) 0.8 (0.0-4.0) % Baso % (Auto) 0.3 (0.0-2.0) % Neut # 5.4 (1.8-7.0) K/uL Lymph # 1.3 (1.0-4.3) K/uL [place] # 0.8 (0.0-0.8) K/uL Eos # 0.1 (0.0-0.7) K/uL Baso # 0.0 (0.0-0.2) K/uL Sodium 135 (132-148) mmol/L Potassium 2.8 L (3.6-5.2) mmol/L Chloride 97 L (98-107) mmol/L Carbon Dioxide 28 (22-30) mmol/L Anion Gap 12 (10-20) BUN < 2 L (7-17) mg/dL Creatinine 0.4 L (0.7-1.2) mg/dL Est GFR ( Amer) > 60 Est GFR (Non-Af Amer) > 60 POC Glucose (mg/dL) 105 (65-110) mg/dL Random Glucose 86 (65-105) mg/dL Calcium 9.1 (8.6-10.4) mg/dl Phosphorus 2.1 L (2.5-4.5) mg/dL Magnesium 1.7 (1.6-2.3) mg/dL Total Bilirubin 1.3 (0.2-1.3) mg/dL AST 190 H D (14-36) U/L ALT 112 H (9-52) U/L Alkaline Phosphatase 132 H D (38-126) U/L Total Protein 6.4 (6.3-8.3) g/dL Albumin 2.9 L (3.5-5.0) g/dL Globulin 3.5 (2.2-3.9) gm/dL Albumin/Globulin Ratio 0.8 L (1.0-2.1) Urine Color (YELLOW) Urine Clarity (Clear) Urine pH (5.0-8.0) Ur Specific Start (1.003-1.030) Urine Protein (NEGATIVE) mg/dL Urine Glucose (UA) (Normal) mg/dL Urine Ketones (NEGATIVE) mg/dL Urine Blood (NEGATIVE) Urine Nitrate (NEGATIVE) Urine Bilirubin (NEGATIVE) Urine Urobilinogen (0.2-1.0) mg/dL Ur Leukocyte Esterase (Negative) Diane/uL Urine WBC (Auto) (0-5) /hpf 03/16/17 Range/Units 13:51 WBC (4.8-10.8) K/uL RBC (3.80-5.20) Mil/uL Hgb (11.0-16.0) g/dL Hct (34.0-47.0) % MCV (81.0-99.0) fL MCH (27.0-31.0) pg MCHC (33.0-37.0) g/dL RDW (11.5-14.5) % Plt Count (130-400) K/uL MPV (7.2-11.7) fL Neut % (Auto) (50.0-75.0) % Lymph % (Auto) (20.0-40.0) % [place] % (Auto) (0.0-10.0) % Eos % (Auto) (0.0-4.0) % Baso % (Auto) (0.0-2.0) % Neut # (1.8-7.0) K/uL Lymph # (1.0-4.3) K/uL [place] # (0.0-0.8) K/uL Eos # (0.0-0.7) K/uL Baso # (0.0-0.2) K/uL Sodium (132-148) mmol/L Potassium (3.6-5.2) mmol/L Chloride (98-107) mmol/L Carbon Dioxide (22-30) mmol/L Anion Gap (10-20) BUN (7-17) mg/dL Creatinine (0.7-1.2) mg/dL Est GFR ( Amer) Est GFR (Non-Af Amer) POC Glucose (mg/dL) (65-110) mg/dL Random Glucose (65-105) mg/dL Calcium (8.6-10.4) mg/dl Phosphorus (2.5-4.5) mg/dL Magnesium (1.6-2.3) mg/dL Total Bilirubin (0.2-1.3) mg/dL AST (14-36) U/L ALT (9-52) U/L Alkaline Phosphatase (38-126) U/L Total Protein (6.3-8.3) g/dL Albumin (3.5-5.0) g/dL Globulin (2.2-3.9) gm/dL Albumin/Globulin Ratio (1.0-2.1) Urine Color Yellow (YELLOW) Urine Clarity Clear (Clear) Urine pH 8.0 (5.0-8.0) Ur Specific Start 1.006 (1.003-1.030) Urine Protein Negative (NEGATIVE) mg/dL Urine Glucose (UA) Normal (Normal) mg/dL Urine Ketones 1+ H (NEGATIVE) mg/dL Urine Blood Negative (NEGATIVE) Urine Nitrate Negative (NEGATIVE) Urine Bilirubin Negative (NEGATIVE) Urine Urobilinogen 4.0 H (0.2-1.0) mg/dL Ur Leukocyte Esterase Neg (Negative) Diane/uL Urine WBC (Auto) < 1 (0-5) /hpf Laboratory Results - last 24 hr 03/16/17 03/16/17 03/17/17 13:51 16:29 06:58 WBC 7.5 RBC 3.31 L Hgb 11.3 Hct 32.5 L MCV 98.0 MCH 34.1 H MCHC 34.7 RDW 13.4 Plt Count 119 L D MPV 9.1 Neut % (Auto) 71.8 Lymph % (Auto) 16.9 L [place] % (Auto) 10.2 H Eos % (Auto) 0.8 Baso % (Auto) 0.3 Neut # 5.4 Lymph # 1.3 [place] # 0.8 Eos # 0.1 Baso # 0.0 Sodium Potassium Chloride Carbon Dioxide Anion Gap BUN Creatinine Est GFR ( Amer) Est GFR (Non-Af Amer) POC Glucose (mg/dL) 105 Random Glucose Calcium Phosphorus Magnesium Total Bilirubin AST ALT Alkaline Phosphatase Total Protein Albumin Globulin Albumin/Globulin Ratio Urine Color Yellow Urine Clarity Clear Urine pH 8.0 Ur Specific Start 1.006 Urine Protein Negative Urine Glucose (UA) Normal Urine Ketones 1+ H Urine Blood Negative Urine Nitrate Negative Urine Bilirubin Negative Urine Urobilinogen 4.0 H Ur Leukocyte Esterase Neg Urine WBC (Auto) < 1 03/17/17 06:58 WBC RBC Hgb Hct MCV MCH MCHC RDW Plt Count MPV Neut % (Auto) Lymph % (Auto) [place] % (Auto) Eos % (Auto) Baso % (Auto) Neut # Lymph # [place] # Eos # Baso # Sodium 135 Potassium 2.8 L Chloride 97 L Carbon Dioxide 28 Anion Gap 12 BUN < 2 L Creatinine 0.4 L Est GFR ( Amer) > 60 Est GFR (Non-Af Amer) > 60 POC Glucose (mg/dL) Random Glucose 86 Calcium 9.1 Phosphorus 2.1 L Magnesium 1.7 Total Bilirubin 1.3 AST 190 H D ALT 112 H Alkaline Phosphatase 132 H D Total Protein 6.4 Albumin 2.9 L Globulin 3.5 Albumin/Globulin Ratio 0.8 L Urine Color Urine Clarity Urine pH Ur Specific Start Urine Protein Urine Glucose (UA) Urine Ketones Urine Blood Urine Nitrate Urine Bilirubin Urine Urobilinogen Ur Leukocyte Esterase Urine WBC (Auto) Fingerstick Blood Sugar Results: 91 Critical Care Progress Note - Nutrition Nutrition: Nutrition Category Date Time Status Heart Healthy Diet [DIET] Diets 03/17/17 Lunch Active Assessment/Plan (1) Pancreatitis Current Visit: Yes Status: Acute Comment: Patient condition improving Discontinue IV fluids Continue pain medication as needed CT of the abdomen and pelvis noted Transfer patient to regular floor (2) High triglycerides Current Visit: Yes Status: Chronic (3) Abdominal pain Current Visit: No Status: Acute
--- NOTE | 2017-03-17 15:43 | PN ---
ENDOCRINOLOGY FOLLOWUP NOTE DATE: LOCATION: In ICU room 6. This is a 31-year-old female with recent diffuse upper abdominal pain and evaluated to have acute alcohol induced pancreatitis with underlying marked hypertriglyceridemia and received vigorous IV hydration and intensive insulin therapy was given. She has improved clinically and metabolically over the last few days as noted and the latest chemistry showed BUN of 2, sodium 135, potassium 2.8, chloride 97, CO2 of 28, glucose 86 and creatinine 0.4. Her glucose levels have range from 91 to 105 mg/dL. Her liver transaminases declining over the last few days as noted. The latest lipase level is 2159 as noted. So at this time, we will continue the IV hydration as given with potassium supplementation as ordered. We will also continue the fenofibrate given as 145 mg every evening with omega-3 fatty acid given as 1 gram p.o. b.i.d. as order. We will titrate incrementally as indicated to optimize metabolic control. We will follow and advise accordingly. Asiya Sung MD
[2017-03-18 06:45] LABS: BASO % 0.4 % (0.0-2.0); EOS # 0.1 K/uL (0.0-0.7); EOS % 0.7 % (0.0-4.0); HEMATOCRIT 35.7 % (34.0-47.0); LYMPH # 1.4 K/uL (1.0-4.3); LYMPH % 18.2 % (20.0-40.0); MEAN CELL VOLUME 99.6 fL (81.0-99.0); MEAN CORPUSCULAR HEMOGLOBIN 34.5 pg (27.0-31.0); MEAN CORPUSCULAR HGB CONC 34.6 g/dL (33.0-37.0); MEAN PLATELET VOLUME 10.6 fL (7.2-11.7); MONO # 1.2 K/uL (0.0-0.8); MONO % 15.3 % (0.0-10.0); NRBC % 0.4 % (0.0-2.0); RED CELL DISTRIBUTION WIDTH 13.9 % (11.5-14.5); WHITE BLOOD COUNT 7.8 K/uL (4.8-10.8)
[2017-03-18 07:05] LABS: CHLORIDE 94 mmol/L (98-107); POTASSIUM 3.4 mmol/L (3.6-5.2); SODIUM 133 mmol/L (132-148)
[2017-03-18 07:07] LABS: ALB/GLOB RATIO 0.9 (1.0-2.1); ALKALINE PHOSPHATASE 138 U/L (38-126); AST/SGOT 150 U/L (14-36); BILIRUBIN,TOTAL 1.1 mg/dL (0.2-1.3); CARBON DIOXIDE 24 mmol/L (22-30); GFR AFRICAN-AMERICAN > 60; GLUCOSE,RANDOM 67 mg/dL (65-105); TOTAL PROTEIN 6.9 g/dL (6.3-8.3)
[2017-03-18 07:08] LABS: ALT/SGPT 116 U/L (9-52); CALCIUM 9.2 mg/dl (8.6-10.4); MAGNESIUM 1.8 mg/dL (1.6-2.3); PHOSPHOROUS 2.7 mg/dL (2.5-4.5)
[2017-03-18 07:22] LABS: BLOOD UREA NITROGEN < 2 mg/dL (7-17)
[2017-03-18] MEDS: Omega-3-Acid Ethyl Esters 1 GM Cap PO SCH ×2 (09:32→18:12)
--- NOTE | 2017-03-18 16:12 | CP.PCM.PN ---
Subjective - Date & Time of Evaluation Date of Evaluation: 03/18/17 Time of Evaluation: 07:30 - Subjective Subjective: Progress note for Dr. Childers Patient tolerated full liquid diet yesterday and had a little bit of her heart healthy diet this morning.Patient is encouraged to be out of bed and ambulate. Patient states she still has abdominal pain, but is not vomiting. Patient denies nausea. Patient states she's tolerating pain well and states she never wants to drink again. Patient encouraged to decrease drinking. Patient told she has high triglycerides as well as her alcohol consumption are two factors that increase chances of getting pancreatitis, which is dangerous. Patient denies fever, chills, nausea, vomiting, urinary retention, dysuria, and constipation. Patient admits to abdominal pain. Objective - Vital Signs/Intake and Output Vital Signs (last 24 hours): Temp Pulse Resp BP Pulse Ox 97.7 F 98 H 20 150/107 H 97 03/18/17 12:00 03/18/17 12:00 03/18/17 12:00 03/18/17 12:00 03/18/17 08:00 Intake and Output: 03/18/17 03/18/17 06:59 18:59 Intake Total 240 450 Output Total 700 500 Balance -460 -50 - Medications Medications: Current Medications Amlodipine Besylate (Norvasc) 10 mg PO DAILY [facility] Last Admin: 03/18/17 09:32 Dose: 10 mg Famotidine (Pepcid) 20 mg IVP Q12 [facility] Last Admin: 03/18/17 09:32 Dose: 20 mg Fenofibrate (Tricor) 145 mg PO QPM [facility] Last Admin: 03/17/17 18:08 Dose: 145 mg Gabapentin (Neurontin) 100 mg PO TID [facility] Last Admin: 03/18/17 14:15 Dose: 100 mg Heparin Sodium (Porcine) (Heparin) 5,000 units SC Q8 [facility] Last Admin: 03/18/17 14:59 Dose: 5,000 units Hydromorphone HCl (Dilaudid) 1 mg IVP Q4H PRN PRN Reason: Pain, severe (8-10) Last Admin: 03/18/17 11:30 Dose: 1 mg Lisinopril (Zestril) 5 mg PO DAILY [facility] Last Admin: 03/18/17 09:34 Dose: 5 mg Lorazepam (Ativan) 1 mg IVP Q4H PRN PRN Reason: Symptoms of alcohol withdrawl Saihq-7-Vtzd Ethyl Esters (Lovaza) 1 gm PO BID [facility] Last Admin: 03/18/17 09:32 Dose: 1 gm Polyethylene Glycol (Miralax) 17 gm PO DAILY PRN PRN Reason: Constipation Last Admin: 03/14/17 09:20 Dose: 17 gm Trazodone HCl (Desyrel) 50 mg PO HS [facility] Last Admin: 03/17/17 21:38 Dose: 50 mg - Labs Labs: 03/18/17 06:28 03/18/17 06:28 PT 12.7 SECONDS (9.7-12.2) H 03/13/17 14:06 INR 1.1 03/13/17 14:06 Assessment and Plan - Assessment and Plan (Free Text) Assessment: Pancreatitis 03/13 Lipase: 6496 03/18 Lipase: 2405 03/13 T, LDL 252, HDL 88 03/15 T 03/16 CT Pancreas: pancreas is [id number] enlarged with inflammatory changes, small amount of fluid consistent with patient's history of acute pancreatitis 03/13 Abdominal US 03/13 CT chest/abdomen/pelvis: extensive peripancreatic inflammatory stranding and fluid with inferior tracking and pancreatic edema. hepatomegaly 2.0 and 4.2 cm focal hypodensity within inferior right hepatic lobe 03/13 EKG Alcohol abuse encourage cessation continue IV hydration. Hx HTN: LR 100 cc/hr Norvasc 10mg POQD, home medication Lisinopril 5mg POQD elevated LFTs, resolving AST: 426 ALT: 164 ALP 79 Consult GI consult: Dr. Okeefe ISABEL: negative Hepatitis: negative HIV negative liver/kidney microsome antibody:_ anti-mitochondrial antibody negative anti-smooth muscle antibody negative Anxiety, PTSD Psych consult Dr. Deshpande Ativan 1mg IV Q4 HR PRN anxiety Gabapentin 100mg PO TID Trazodone 50mg PO qHS Prophylaxis: DVT: SCDs; Heparin 5000 units SC Q8H GI: Pepcid 20mg IVP Q12H
--- NOTE | 2017-03-18 17:37 | PN ---
ENDO FOLLOWUP NOTE LOCATION: In ICU, room 6. SUBJECTIVE: This is a 31-year-old female with recent presentation with acute pancreatitis related to recent alcoholic intoxication and also concomitant hypertriglyceridemia and is now being followed closely for metabolic management. She has improved clinically and metabolically as noted thereof with improved appetite as noted. Her latest chemistry showed a BUN of 2, sodium 133, potassium 3.4, chloride 94, CO2 of 24, glucose 67, and creatinine 0.4. Her liver transaminases have declined and improved accordingly as noted. The latest triglyceride levels were still elevated but the laboratories did not give the actual value as noted. The lipase levels have gone down to 2405 as noted. So at this time, we will continue the vigorous IV hydration as given and also the combination of Lovaza and fenofibrate as ordered. We will obtain serum chemistries and supplements accordingly as needed. We will follow with you. Asiya Sung MD
[2017-03-19 01:08] VITALS: RESP 20
[2017-03-19] MEDS: Omega-3-Acid Ethyl Esters 1 GM Cap PO SCH ×2 (09:44→18:44)
--- NOTE | 2017-03-19 11:01 | CP.PCM.PN ---
<Adela Peoples - Last Filed: 03/19/17 17:10> Subjective - Date & Time of Evaluation Date of Evaluation: 03/19/17 Time of Evaluation: 10:59 - Subjective Subjective: Progress note for Dr. Marquez Patient had little bit of her heart healthy diet this morning. Patient states she does not want to overdo it. Patient states she got into a chair yesterday. Patient still has minimal abdominal pain and admits to bilateral ankle edema. When asked about her SCDs. Patient states she doesn't want to wear them because she feels like they cause her to swell more. It was explained to patient that she needs to wear them and that they help with swelling and lymphatics. Patient denies vomiting. Patient denies nausea. Patient denies fever, chills, nausea, vomiting, urinary retention, dysuria, diarrhea, and constipation. Objective - Vital Signs/Intake and Output Vital Signs (last 24 hours): Temp Pulse Resp BP Pulse Ox 98.3 F 112 H 20 130/90 97 03/19/17 07:40 03/19/17 07:40 03/19/17 07:40 03/19/17 07:40 03/19/17 07:40 Intake and Output: 03/19/17 03/19/17 06:59 18:59 Intake Total 240 Balance 240 - Medications Medications: Current Medications Amlodipine Besylate (Norvasc) 10 mg PO DAILY [facility] Last Admin: 03/19/17 09:45 Dose: 10 mg Famotidine (Pepcid) 20 mg IVP Q12 [facility] Last Admin: 03/19/17 09:44 Dose: 20 mg Fenofibrate (Tricor) 145 mg PO QPM [facility] Last Admin: 03/18/17 18:12 Dose: 145 mg Gabapentin (Neurontin) 100 mg PO TID [facility] Last Admin: 03/19/17 09:44 Dose: 100 mg Heparin Sodium (Porcine) (Heparin) 5,000 units SC Q8 [facility] Last Admin: 03/19/17 06:26 Dose: Not Given Hydralazine HCl (Apresoline) 25 mg PO Q6 PRN PRN Reason: Systolic Blood Pressure Last Admin: 03/19/17 05:29 Dose: 25 mg Hydromorphone HCl (Dilaudid) 1 mg IVP Q4H PRN PRN Reason: Pain, severe (8-10) Last Admin: 03/19/17 09:41 Dose: 1 mg Lisinopril (Zestril) 5 mg PO DAILY [facility] Last Admin: 03/19/17 09:44 Dose: 5 mg Lorazepam (Ativan) 1 mg IVP Q4H PRN PRN Reason: Symptoms of alcohol withdrawl [id number] Ethyl Esters (Lovaza) 1 gm PO BID [facility] Last Admin: 03/19/17 09:44 Dose: 1 gm Polyethylene Glycol (Miralax) 17 gm PO DAILY PRN PRN Reason: Constipation Last Admin: 03/14/17 09:20 Dose: 17 gm Trazodone HCl (Desyrel) 50 mg PO HS [facility] Last Admin: 03/18/17 21:29 Dose: 50 mg - Labs Labs: 03/18/17 06:28 03/18/17 06:28 PT 12.7 SECONDS (9.7-12.2) H 03/13/17 14:06 INR 1.1 03/13/17 14:06 - Constitutional Appears: Non-toxic - Head Exam Head Exam: NORMAL INSPECTION - Eye Exam Eye Exam: EOMI, Normal appearance - ENT Exam ENT Exam: Mucous Membranes Moist - Neck Exam Neck Exam: Full ROM - Respiratory Exam Respiratory Exam: Clear to Ausculation Bilateral, NORMAL BREATHING PATTERN. absent: Accessory Muscle Use - Cardiovascular Exam Cardiovascular Exam: +S1, +S2. absent: Bradycardia, Tachycardia - Extremities Exam Extremities Exam: Pedal Edema (2+ pitting edema of ankles.) Additional comments: negative Angus sign. tenderness with dorsiflexion of foot, patient has some calf pain bilaterally. Assessment and Plan - Assessment and Plan (Free Text) Assessment: Pancreatitis 03/13 Lipase: 6496 03/18 Lipase: 2405 03/13 T, LDL 252, HDL 88 03/15 T 03/16 CT Pancreas: pancreas is [id number] enlarged with inflammatory changes, small amount of fluid consistent with patient's history of acute pancreatitis 03/13 Abdominal US 03/13 CT chest/abdomen/pelvis: extensive peripancreatic inflammatory stranding and fluid with inferior tracking and pancreatic edema. hepatomegaly 2.0 and 4.2 cm focal hypodensity within inferior right hepatic lobe 03/13 EKG bilateral ankle edema tenderness with dorsiflexion of foot on PE, patient has some calf pain bilaterally, consider thrombosis or muscle strain 03/19 follow up doppler of lower extremities (bilateral): no dvt noted on exam 03/19 d dimer 4683 f/u CTA Alcohol abuse encourage cessation continue IV hydration. Hx HTN: LR 100 cc/hr Norvasc 10mg POQD, home medication Lisinopril 5mg POQD elevated LFTs, resolving AST: 426 ALT: 164 ALP 79 Consult GI consult: Dr. Okeefe ISABEL: negative Hepatitis: negative HIV negative liver/kidney microsome antibody:_ anti-mitochondrial antibody negative anti-smooth muscle antibody negative Anxiety, PTSD Psych consult Dr. Deshpande Ativan 1mg IV Q4 HR PRN anxiety Gabapentin 100mg PO TID Trazodone 50mg PO qHS Prophylaxis: DVT: SCDs; Heparin 5000 units SC Q8H GI: Pepcid 20mg IVP Q12H discussed with Dr. Jimmy Peoples DO PGY1 <Marlon Marquez - Last Filed: 03/19/17 19:43> Objective - Vital Signs/Intake and Output Vital Signs (last 24 hours): Temp Pulse Resp BP Pulse Ox 98.5 F 104 H 20 129/87 98 03/19/17 15:00 03/19/17 15:00 03/19/17 15:00 03/19/17 15:00 03/19/17 15:00 Intake and Output: 03/19/17 03/20/17 18:59 06:59 Intake Total 360 Balance 360 - Medications Medications: Current Medications Amlodipine Besylate (Norvasc) 10 mg PO DAILY [facility] Last Admin: 03/19/17 09:45 Dose: 10 mg Famotidine (Pepcid) 20 mg IVP Q12 [facility] Last Admin: 03/19/17 09:44 Dose: 20 mg Fenofibrate (Tricor) 145 mg PO QPM [facility] Last Admin: 03/19/17 18:44 Dose: 145 mg Gabapentin (Neurontin) 100 mg PO TID [facility] Last Admin: 03/19/17 18:44 Dose: 100 mg Heparin Sodium (Porcine) (Heparin) 5,000 units SC Q8 [facility] Last Admin: 03/19/17 14:18 Dose: 5,000 units Hydralazine HCl (Apresoline) 25 mg PO Q6 PRN PRN Reason: Systolic Blood Pressure Last Admin: 03/19/17 05:29 Dose: 25 mg Hydromorphone HCl (Dilaudid) 1 mg IVP Q4H PRN PRN Reason: Pain, severe (8-10) Last Admin: 03/19/17 18:48 Dose: 1 mg Lisinopril (Zestril) 5 mg PO DAILY [facility] Last Admin: 03/19/17 09:44 Dose: 5 mg Lorazepam (Ativan) 1 mg IVP Q4H PRN PRN Reason: Symptoms of alcohol withdrawl [id number] Ethyl Esters (Lovaza) 1 gm PO BID [facility] Last Admin: 03/19/17 18:44 Dose: 1 gm Polyethylene Glycol (Miralax) 17 gm PO DAILY PRN PRN Reason: Constipation Last Admin: 03/14/17 09:20 Dose: 17 gm Trazodone HCl (Desyrel) 50 mg PO HS [facility] Last Admin: 03/18/17 21:29 Dose: 50 mg - Labs Labs: 03/19/17 11:36 03/19/17 11:36 PT 12.7 SECONDS (9.7-12.2) H 03/13/17 14:06 INR 1.1 03/13/17 14:06 Attending/Attestation - Attestation I have personally seen and examined this patient.: Yes I have fully participated in the care of the patient.: Yes I have reviewed all pertinent clinical information, including history, physical exam and plan: Yes Notes (Text): 03/19/17 19:38 Patient was seen and examined at 6 PM. Exam, assessment and plan were gone over with the resident. Upon ROS: She is tolerating regular diet and has had normal bowel movement NO abdominal pain after eating Upon Exam: Mild tenderness to palpation epigastric area but NO rebound/guarding Assessments: Acute Pancreatitis Elevated LFTs Hypertriglyceridemia HTN Tachycardia Anxiety/PTSD: declined antidepressant Low Magnesium Hypokalemia Hypophosphotemia Thrombocytopenia Urinary Frequency Elevated D-Dimer: F/U CTA Angiogram Chest to R/O PE. Bilateral Venous Dopplers Legs are negative Disposition: plan for discharge 03/20/17. Marlon Marquez D.O.
[2017-03-19 11:43] LABS: BASO % 0.4 % (0.0-2.0); EOS % 0.4 % (0.0-4.0); HEMATOCRIT 35.9 % (34.0-47.0); LYMPH # 1.5 K/uL (1.0-4.3); LYMPH % 22.3 % (20.0-40.0); MEAN CELL VOLUME 99.2 fL (81.0-99.0); MEAN CORPUSCULAR HEMOGLOBIN 33.6 pg (27.0-31.0); MEAN CORPUSCULAR HGB CONC 33.8 g/dL (33.0-37.0); MEAN PLATELET VOLUME 9.2 fL (7.2-11.7); MONO # 1.5 K/uL (0.0-0.8); MONO % 21.4 % (0.0-10.0); NRBC % 0.6 % (0.0-2.0); PLATELET COUNT 268 K/uL (130-400); RED CELL DISTRIBUTION WIDTH 14.6 % (11.5-14.5); WHITE BLOOD COUNT 6.8 K/uL (4.8-10.8)
[2017-03-19 11:57] LABS: CHLORIDE 95 mmol/L (98-107); SODIUM 131 mmol/L (132-148)
[2017-03-19 11:58] LABS: POTASSIUM 3.6 mmol/L (3.6-5.2)
[2017-03-19 12:00] LABS: ALKALINE PHOSPHATASE 124 U/L (38-126); ALT/SGPT 103 U/L (9-52); AST/SGOT 115 U/L (14-36); BILIRUBIN,TOTAL 0.9 mg/dL (0.2-1.3); CARBON DIOXIDE 25 mmol/L (22-30); GFR AFRICAN-AMERICAN > 60; GLUCOSE,RANDOM 92 mg/dL (65-105); PHOSPHOROUS 3.9 mg/dL (2.5-4.5)
[2017-03-19 12:01] LABS: CALCIUM 9.1 mg/dl (8.6-10.4); MAGNESIUM 1.6 mg/dL (1.6-2.3)
[2017-03-19 12:10] LABS: BASOPHIL 1 % (0-2); BLOOD UREA NITROGEN 2 mg/dL (7-17); EOSINOPHIL 1 % (0-4); MYELOCYTE 1 % (0-0); NEUTROPHIL 48 % (50-75); REACTIVE LYMPHOCYTES 1 % (0-0); TOTAL CELLS COUNTED 100
--- NOTE | 2017-03-19 15:30 | VASCLAB ---
PROCEDURE: Lower Extremity Venous Duplex Exam. HISTORY: leg swelling PRIORS: None. TECHNIQUE: Bilateral common femoral, femoral, popliteal and posterior tibial, peroneal and great saphenous veins were evaluated. Flow was assessed with color Doppler, compressibility, assessment of phasic flow and augmentation response. Report prepared by RAHAT Becerra, RVT FINDINGS: RIGHT: 1. Common Femoral Vein: 1.1. Compressibility - Fully compressible: Thrombus - None : Flow - Phasic: Augmentation -Normal: Reflux - None. 2. Femoral Vein: 2.1. Compressibility - Fully compressible: Thrombus - None : Flow - Phasic: Augmentation -Normal: Reflux - None. 3. Popliteal Vein: 3.1. Compressibility - Fully compressible: Thrombus - None : Flow - Phasic: Augmentation -Normal: Reflux - Severe. 4. Posterior Tibial Vein: 4.1. Compressibility - Fully compressible: Thrombus - None: Flow - Phasic: Augmentation -Normal: Reflux - None. 5. Peroneal Vein: 5.1. Compressibility - Fully compressible: Thrombus - None: Flow - Phasic: Augmentation -Normal: Reflux - None. 6. Great Saphenous Vein: 6.1. Compressibility - Fully compressible: Thrombus - None: Flow - Phasic: Augmentation - Normal: Reflux - None. LEFT: 1. Common Femoral Vein: 1.1. Compressibility - Fully compressible: Thrombus - None: Flow - Phasic: Augmentation -Normal: Reflux - None. 2. Femoral Vein: 2.1. Compressibility - Fully compressible: Thrombus - None: Flow - Phasic: Augmentation -Normal: Reflux - None. 3. Popliteal Vein: 3.1. Compressibility - Fully compressible: Thrombus - None : Flow - Phasic: Augmentation -Normal: Reflux - None. 4. Posterior Tibial Vein: 4.1. Compressibility - Fully compressible: Thrombus - None: Flow - Phasic: Augmentation -Normal: Reflux - None. 5. Peroneal Vein: 5.1. Compressibility - Fully compressible: Thrombus - None: Flow - Phasic: Augmentation -Normal: Reflux - None. 6. Great Saphenous Vein: 6.1. Compressibility - Fully compressible: Thrombus - None: Flow - Phasic: Augmentation - Normal: Reflux - None. OTHER FINDINGS: Right: Valvular incompetence of the right popliteal vein. Left: None significant. IMPRESSION: Right: No evidence of deep or superficial vein thrombosis of the right lower extremity. Left: No evidence of deep or superficial vein thrombosis of the left lower extremity. Normal valve function noted of the left side.
--- NOTE | 2017-03-19 17:33 | PN ---
DATE: ENDOCRINOLOGY FOLLOWUP NOTE LOCATION: In room 353. This is a 31-year-old female presenting here with alcohol-induced acute pancreatitis with concomitant marked dyslipidemia with very high elevations of the triglyceride levels as noted and is now being followed closely for metabolic management. Her glycemic levels are fluctuating, but not improved at this time and the latest chemistry showed a BUN of 2, sodium 131, potassium 3.6, chloride 95, CO2 25, glucose 92, and creatinine 0.5. Her latest lipase level is 2159. So at this time, we will continue the present vigorous IV hydration as ordered. We also continue the fenofibrate and omega-3 fatty acid supplementation as given. We will obtain serial chemistries and supplement accordingly as needed. We will follow with you. Asiya Sung MD
[2017-03-19] MEDS ORDERED: Iodixanol 320 MG/ML 100 ML BOTTLE IV ONE (18:11)
--- NOTE | 2017-03-19 19:16 | CT ---
PROCEDURE: CT Chest with contrast (Pulmonary Angiogram) HISTORY: Elevated D-Dimer and Tachycardia COMPARISON: Unenhanced chest CT 03/13/2017. TECHNIQUE: Axial computed tomography images were obtained of the chest in the pulmonary arterial phase of enhancement. Coronal and sagittal reformatted images were created and reviewed. Intravenous contrast dose: Visipaque 320, 100 cc. Radiation dose: Total exam DLP = 317.67 mGy-cm. This CT exam was performed using one or more of the following dose reduction techniques: Automated exposure control, adjustment of the mA and/or kV according to patient size, and/or use of iterative reconstruction technique. FINDINGS: PULMONARY ARTERIES: Artifacts from hyperdense contrast at the superior vena cava obscure right upper lobe pulmonary artery branches, nevertheless, mild pulmonary embolus is suspected at right upper lobe pulmonary artery branches. No definitive additional pulmonary embolus. AORTA: No acute findings. No thoracic aortic aneurysm. LUNGS: Unremarkable. No nodule, mass or pulmonary consolidation. Trace bilateral basilar dependent atelectasis identified. The thoracic inlet appears unremarkable. PLEURAL SPACES: Mild bilateral pleural effusions are identified. No pericardial effusion. No pneumothorax. HEART: Unremarkable. No cardiomegaly. No significant pericardial effusion. LYMPH NODES: No lymphadenopathy. BONES, CHEST WALL: Unremarkable. No fracture or destructive lesion OTHER FINDINGS: Extensive diffuse fatty infiltration of the visualized liver is appreciated. IMPRESSION: Findings suspicious for pulmonary embolus at right upper lobe pulmonary artery branches as discussed above. Artifacts obscure this area somewhat. No additional pulmonary embolus identified. Minimal bilateral pleural effusions. Limited compression atelectasis bilateral lower lobes. Marked diffuse fatty infiltration of the visualized liver is appreciated.
--- NOTE | 2017-03-20 07:44 | CP.PCM.PN ---
<RichelleAdela - Last Filed: 03/20/17 15:22> Subjective - Date & Time of Evaluation Date of Evaluation: 03/20/17 Time of Evaluation: 07:43 - Subjective Subjective: Progress note for Dr. Marquez It was explained to patient that she has a pulmonary embolism found on CT scan Patient denies fever, chills, shortness of breath, chest pain. Patient denies abdominal pain. Patient had questions as to why she has a pulmonary embolism. Explained to patient that high amounts of alcohol causes thromboembolic events. Objective - Vital Signs/Intake and Output Vital Signs (last 24 hours): Temp Pulse Resp BP Pulse Ox 98.2 F 87 20 128/86 96 03/20/17 00:00 03/20/17 00:00 03/20/17 00:00 03/20/17 00:00 03/20/17 00:00 Intake and Output: 03/20/17 03/20/17 06:59 18:59 Intake Total 540 Output Total 400 Balance 140 - Medications Medications: Current Medications Amlodipine Besylate (Norvasc) 10 mg PO DAILY [facility] Last Admin: 03/19/17 09:45 Dose: 10 mg Enoxaparin Sodium (Lovenox) 70 mg SC Q12 [facility] Famotidine (Pepcid) 20 mg IVP Q12 [facility] Last Admin: 03/19/17 21:44 Dose: 20 mg Fenofibrate (Tricor) 145 mg PO QPM [facility] Last Admin: 03/19/17 18:44 Dose: 145 mg Gabapentin (Neurontin) 100 mg PO TID [facility] Last Admin: 03/19/17 18:44 Dose: 100 mg Hydralazine HCl (Apresoline) 25 mg PO Q6 PRN PRN Reason: Systolic Blood Pressure Last Admin: 03/19/17 05:29 Dose: 25 mg Hydromorphone HCl (Dilaudid) 1 mg IVP Q4H PRN PRN Reason: Pain, severe (8-10) Last Admin: 03/20/17 04:17 Dose: 1 mg Lisinopril (Zestril) 5 mg PO DAILY [facility] Last Admin: 03/19/17 09:44 Dose: 5 mg Lorazepam (Ativan) 1 mg IVP Q4H PRN PRN Reason: Symptoms of alcohol withdrawl [id number]-6-[id number] Ethyl Esters (Lovaza) 1 gm PO BID [facility] Last Admin: 03/19/17 18:44 Dose: 1 gm Polyethylene Glycol (Miralax) 17 gm PO DAILY PRN PRN Reason: Constipation Last Admin: 03/14/17 09:20 Dose: 17 gm Trazodone HCl (Desyrel) 50 mg PO HS [facility] Last Admin: 03/19/17 21:44 Dose: 50 mg - Labs Labs: 03/19/17 11:36 03/19/17 11:36 PT 12.7 SECONDS (9.7-12.2) H 03/13/17 14:06 INR 1.1 03/13/17 14:06 - Constitutional Appears: Non-toxic - Head Exam Head Exam: NORMAL INSPECTION - Eye Exam Eye Exam: EOMI, Normal appearance - ENT Exam ENT Exam: Mucous Membranes Moist - Neck Exam Neck Exam: Full ROM - Respiratory Exam Respiratory Exam: Clear to Ausculation Bilateral, NORMAL BREATHING PATTERN. absent: Accessory Muscle Use - Cardiovascular Exam Cardiovascular Exam: REGULAR RHYTHM, +S1, +S2 - GI/Abdominal Exam GI & Abdominal Exam: Soft. absent: Tenderness - Extremities Exam Extremities Exam: Full ROM, Normal Inspection. absent: Pedal Edema Additional comments: SCDs on in bed - Neurological Exam Neurological Exam: Alert, Awake, Normal Gait, Oriented x3 - Psychiatric Exam Psychiatric exam: Normal Affect, Normal Mood - Skin Skin Exam: Dry, Intact, Normal Color, Warm Assessment and Plan - Assessment and Plan (Free Text) Assessment: Assessment: Pancreatitis 03/13 Lipase: 6496 03/18 Lipase: 2405 03/13 T, LDL 252, HDL 88 03/15 T 03/16 CT Pancreas: pancreas is [id number]-[id number] enlarged with inflammatory changes, small amount of fluid consistent with patient's history of acute pancreatitis 03/13 Abdominal US 03/13 CT chest/abdomen/pelvis: extensive peripancreatic inflammatory stranding and fluid with inferior tracking and pancreatic edema. hepatomegaly 2.0 and 4.2 cm focal hypodensity within inferior right hepatic lobe 03/13 EKG bilateral ankle edema, resolved tenderness with dorsiflexion of foot on PE, patient has some calf pain bilaterally, consider thrombosis or muscle strain 03/19 follow up doppler of lower extremities (bilateral): no dvt noted on exam 03/19 d dimer 4683 Pulmonary Embolism 03/19 follow up doppler of lower extremities (bilateral): no dvt noted on exam 03/19 d dimer 4683 03/19 CTA: right upper lobe PE Lovenox 70mg SC Q12H Heme/onc Consult Dr. Doty 03/20 to be discharged on Pradaxa 150mg POBID per Dr. Doty Alcohol abuse encourage cessation continue IV hydration. Hx HTN: LR 100 cc/hr Norvasc 10mg POQD, home medication Lisinopril 5mg POQD elevated LFTs, resolving AST: 75 ALT: 82 ALP 121 Consult GI consult: Dr. Okeefe ISABEL: negative Hepatitis: negative HIV negative liver/kidney microsome antibody:_ anti-mitochondrial antibody negative anti-smooth muscle antibody negative Anxiety, PTSD Psych consult Dr. Deshpande Ativan 1mg IV Q4 HR PRN anxiety Gabapentin 100mg PO TID Trazodone 50mg PO qHS Prophylaxis: DVT: SCDs; Heparin 5000 units SC Q8H GI: Pepcid 20mg IVP Q12H discussed with Dr. Jimmy Peoples DO PGY1 <Marlon Marquez - Last Filed: 03/20/17 19:07> Objective - Vital Signs/Intake and Output Vital Signs (last 24 hours): Temp Pulse Resp BP Pulse Ox 98 F 98 H 20 138/97 H 98 03/20/17 15:00 03/20/17 15:45 03/20/17 15:45 03/20/17 15:45 03/20/17 15:45 Intake and Output: 03/20/17 03/21/17 18:59 06:59 Intake Total 350 Balance 350 - Medications Medications: Current Medications Amlodipine Besylate (Norvasc) 10 mg PO DAILY [facility] Last Admin: 03/20/17 09:59 Dose: 10 mg Enoxaparin Sodium (Lovenox) 70 mg SC Q12 [facility] Last Admin: 03/20/17 10:04 Dose: 70 mg Famotidine (Pepcid) 20 mg PO Q12 [facility] Fenofibrate (Tricor) 145 mg PO QPM [facility] Last Admin: 03/20/17 18:19 Dose: 145 mg Gabapentin (Neurontin) 100 mg PO TID [facility] Last Admin: 03/20/17 18:19 Dose: 100 mg Hydralazine HCl (Apresoline) 25 mg PO Q6 PRN PRN Reason: Systolic Blood Pressure Last Admin: 03/19/17 05:29 Dose: 25 mg Ketorolac Tromethamine (Toradol) 15 mg IVP Q6 PRN PRN Reason: Pain, moderate (4-7) Last Admin: 03/20/17 18:56 Dose: 15 mg Lisinopril (Zestril) 5 mg PO DAILY [facility] Last Admin: 03/20/17 10:00 Dose: 5 mg Lorazepam (Ativan) 1 mg IVP Q4H PRN PRN Reason: Symptoms of alcohol withdrawl [id number] Ethyl Esters (Lovaza) 1 gm PO BID [facility] Last Admin: 03/20/17 18:19 Dose: 1 gm Polyethylene Glycol (Miralax) 17 gm PO DAILY PRN PRN Reason: Constipation Last Admin: 03/14/17 09:20 Dose: 17 gm Trazodone HCl (Desyrel) 50 mg PO HS [facility] Last Admin: 03/19/17 21:44 Dose: 50 mg - Labs Labs: 03/20/17 11:13 03/20/17 11:13 PT 12.7 SECONDS (9.7-12.2) H 03/13/17 14:06 INR 1.1 03/13/17 14:06 Attending/Attestation - Attestation I have personally seen and examined this patient.: Yes I have fully participated in the care of the patient.: Yes I have reviewed all pertinent clinical information, including history, physical exam and plan: Yes Notes (Text): 03/20/17 19:02 Patient was seen and examined at 10:20 AM Exam, assessment and plan were gone over with the resident. Upon ROS: She is tolerating regular diet and has had normal bowel movement NO abdominal pain after eating NO N/V Upon Exam: NO tenderness to palpation of the Abdomen Assessments: Acute Pancreatitis Right Pulmonary PE: F/U hypercoagulable workup. Heme/Onc Dr. Edwin Doty recommend Pradaxa 150 mg PO 2x/day. Rx given to [facility] to obtain insurance approval prior to discharge. Spoke extensively today concerning large amounts of Alcohol use and binge drinking which can lead to formation of blood clot. Also explained the dangers of continued alcohol use with taking blood thinner. She expressed understanding. Elevated LFTs: trending down Hypertriglyceridemia: likely related to alcohol use HTN: controlled on Norvasc and Lisinopril Tachycardia: resolved Anxiety/PTSD: declined antidepressant Low Magnesium: resolved Hypokalemia: resolved Hypophosphotemia: resolved Thrombocytopenia: resolved Urinary Frequency: Urine Culture 03/16 showed NO growth Marlon Marquez D.O.
[2017-03-20] MEDS: Omega-3-Acid Ethyl Esters 1 GM Cap PO SCH ×2 (10:00→18:19)
[2017-03-20] MEDS: Enoxaparin 80 mg Syringe SC SCH ×2 (10:04→21:38)
[2017-03-20 11:20] LABS: BASO % 0.3 % (0.0-2.0); EOS % 0.7 % (0.0-4.0); HEMATOCRIT 33.8 % (34.0-47.0); LYMPH # 1.4 K/uL (1.0-4.3); LYMPH % 20.6 % (20.0-40.0); MEAN CELL VOLUME 99.2 fL (81.0-99.0); MEAN CORPUSCULAR HEMOGLOBIN 34.2 pg (27.0-31.0); MEAN CORPUSCULAR HGB CONC 34.4 g/dL (33.0-37.0); MONO # 1.4 K/uL (0.0-0.8); MONO % 20.7 % (0.0-10.0); NRBC % 0.2 % (0.0-2.0); PLATELET COUNT 340 K/uL (130-400); RED CELL DISTRIBUTION WIDTH 14.1 % (11.5-14.5); WHITE BLOOD COUNT 6.8 K/uL (4.8-10.8)
[2017-03-20 11:38] LABS: CHLORIDE 98 mmol/L (98-107)
[2017-03-20 11:39] LABS: POTASSIUM 3.9 mmol/L (3.6-5.2); SODIUM 134 mmol/L (132-148)
[2017-03-20 11:41] LABS: ALB/GLOB RATIO 0.9 (1.0-2.1); BILIRUBIN,TOTAL 0.9 mg/dL (0.2-1.3); CARBON DIOXIDE 26 mmol/L (22-30); GFR AFRICAN-AMERICAN > 60; TOTAL PROTEIN 7.6 g/dL (6.3-8.3)
[2017-03-20 11:42] LABS: ALKALINE PHOSPHATASE 121 U/L (38-126); ALT/SGPT 82 U/L (9-52); AST/SGOT 75 U/L (14-36); BLOOD UREA NITROGEN 4 mg/dL (7-17); CALCIUM 9.8 mg/dl (8.6-10.4); GLUCOSE,RANDOM 90 mg/dL (65-105); PHOSPHOROUS 4.3 mg/dL (2.5-4.5)
[2017-03-20 11:43] LABS: MAGNESIUM 1.7 mg/dL (1.6-2.3)
[2017-03-20 12:23] LABS: NEUTROPHIL 56 % (50-75); TOTAL CELLS COUNTED 100
--- NOTE | 2017-03-21 07:19 | CP.PCM.CON ---
History of Present Illness - History of Present Illness History of Present Illness: 31 year old female with a history of HTN, fatty liver, admitted with abdominal pain, intractable N/V, found to have acute pancreatitis, and PE. The patient reports to shortness of breath and chest discomfort which lead to a CT angio of the chest with suggestions of a right upper lobe PE. The patient was started on therapeutic lovenox and notes to improvement in her symptoms. An US of the lower extremities was negative for DVT. She did receive a depot control injection about 6 months ago. Past medical history: HTN, fatty liver Past surgical history: None Family history: Grandmother and grandfather (maternal) both had unknown cancer. Denies blood clots. Social history: Denies tobacco, social alcohol, and denies illicit drug use. Allergies: NKA Review of systems: All remaining review of systems including HEENT, cardiovascular, respiratory, gastrointestinal, genitourinary, musculoskeletal, dermatologic, neurologic, and psychiatric are negative unless mentioned in the HPI. Past Patient History - Infectious Disease Hx of Infectious Diseases: None - Past Social History Smoking Status: Never Smoked - CARDIAC Hx Hypertension: Yes (noncompliant with meds) - PULMONARY Hx Respiratory Disorders: No - NEUROLOGICAL Hx Neurological Disorder: No - HEENT Hx HEENT Problems: No - RENAL Hx Chronic Kidney Disease: No - ENDOCRINE/METABOLIC Hx Endocrine Disorders: No - HEMATOLOGICAL/ONCOLOGICAL Hx Blood Disorders: No - INTEGUMENTARY Hx Dermatological Problems: No - MUSCULOSKELETAL/RHEUMATOLOGICAL Hx Musculoskeletal Disorders: No - GASTROINTESTINAL Hx Gastritis: Yes - GENITOURINARY/GYNECOLOGICAL Hx Genitourinary Disorders: No - PSYCHIATRIC Hx Substance Use: No - SURGICAL HISTORY Hx Surgeries: No - ANESTHESIA Hx Anesthesia: No Meds Allergies/Adverse Reactions: Allergies Allergy/AdvReac Type Severity Reaction Status Date / Time No Known Allergies Allergy Verified 03/13/17 10:23 - Medications Medications: Current Medications Amlodipine Besylate (Norvasc) 10 mg PO DAILY [facility] Last Admin: 03/20/17 09:59 Dose: 10 mg Enoxaparin Sodium (Lovenox) 70 mg SC Q12 [facility] Last Admin: 03/20/17 21:38 Dose: 70 mg Famotidine (Pepcid) 20 mg PO Q12 [facility] Last Admin: 03/20/17 21:38 Dose: 20 mg Fenofibrate (Tricor) 145 mg PO QPM [facility] Last Admin: 03/20/17 18:19 Dose: 145 mg Gabapentin (Neurontin) 100 mg PO TID [facility] Last Admin: 03/20/17 18:19 Dose: 100 mg Hydralazine HCl (Apresoline) 25 mg PO Q6 PRN PRN Reason: Systolic Blood Pressure Last Admin: 03/19/17 05:29 Dose: 25 mg Ketorolac Tromethamine (Toradol) 15 mg IVP Q6 PRN PRN Reason: Pain, moderate (4-7) Last Admin: 03/21/17 03:11 Dose: 15 mg Lisinopril (Zestril) 5 mg PO DAILY [facility] Last Admin: 03/20/17 10:00 Dose: 5 mg Lorazepam (Ativan) 1 mg IVP Q4H PRN PRN Reason: Symptoms of alcohol withdrawl [id number] Ethyl Esters (Lovaza) 1 gm PO BID [facility] Last Admin: 03/20/17 18:19 Dose: 1 gm Polyethylene Glycol (Miralax) 17 gm PO DAILY PRN PRN Reason: Constipation Last Admin: 03/14/17 09:20 Dose: 17 gm Trazodone HCl (Desyrel) 50 mg PO HS [facility] Last Admin: 03/20/17 21:38 Dose: 50 mg Physical Exam - Head Exam Head Exam: ATRAUMATIC - Eye Exam Eye Exam: Normal appearance - ENT Exam ENT Exam: Mucous Membranes Dry - Respiratory Exam Respiratory Exam: NORMAL BREATHING PATTERN - Cardiovascular Exam Cardiovascular Exam: +S1, +S2 - GI/Abdominal Exam GI & Abdominal Exam: Normal Bowel Sounds - Extremities Exam Extremities exam: Positive for: normal inspection Results - Vital Signs Recent Vital Signs: Last Vital Signs Temp 98.3 F 03/21/17 00:00 Pulse 88 03/21/17 00:00 Resp 20 03/21/17 00:00 BP 126/81 03/21/17 00:00 Pulse Ox 99 03/21/17 00:00 - Labs Result Diagrams: 03/20/17 11:13 03/20/17 11:13 Labs: Laboratory Results - last 24 hr 03/20/17 03/20/17 11:13 11:13 WBC 6.8 RBC 3.40 L Hgb 11.6 Hct 33.8 L MCV 99.2 H MCH 34.2 H MCHC 34.4 RDW 14.1 Plt Count 340 MPV 9.0 Neut % (Auto) 57.7 Lymph % (Auto) 20.6 [place] % (Auto) 20.7 H Eos % (Auto) 0.7 Baso % (Auto) 0.3 Neut # 3.9 Lymph # 1.4 [place] # 1.4 H Eos # 0.0 Baso # 0.0 Neutrophils % (Manual) 56 Band Neutrophils % 13 H* Lymphocytes % (Manual) 25 Monocytes % (Manual) 6 Platelet Estimate Normal RBC Morphology Normal Sodium 134 Potassium 3.9 Chloride 98 Carbon Dioxide 26 Anion Gap 15 BUN 4 L Creatinine 0.5 L Est GFR ( Amer) > 60 Est GFR (Non-Af Amer) > 60 Random Glucose 90 Calcium 9.8 Phosphorus 4.3 Magnesium 1.7 Total Bilirubin 0.9 AST 75 H D ALT 82 H D Alkaline Phosphatase 121 Total Protein 7.6 Albumin 3.6 Globulin 4.0 H Albumin/Globulin Ratio 0.9 L Assessment & Plan (1) Pulmonary embolism Assessment and Plan: on therapeutic anticoagulation recommend outpatient pradaxa 150mg BID discussed importance of hormonal control cessation inherited thrombophilia w/u sent Thank you for this interesting consult. Status: Acute
--- NOTE | 2017-03-21 07:21 | PN ---
ENDOCRINOLOGY FOLLOWUP NOTE DATE: LOCATION: Room 353. This is a 31-year-old female presenting here with acute pancreatitis with underlying improved clinically and metabolically as noted thereof. Her latest lipase levels are actually 2159. The latest chemistry shows a BUN of 4, sodium 134, potassium 3.9, chloride 98, CO2 of 26, glucose 90 and creatinine 0.5. underlying familial combined dyslipidemia. Asiya Sung MD
[2017-03-21 07:27] LABS: BASO % 0.3 % (0.0-2.0); EOS % 0.6 % (0.0-4.0); HEMATOCRIT 31.4 % (34.0-47.0); LYMPH # 1.8 K/uL (1.0-4.3); MEAN CELL VOLUME 98.5 fL (81.0-99.0); MEAN CORPUSCULAR HEMOGLOBIN 34.4 pg (27.0-31.0); MEAN CORPUSCULAR HGB CONC 34.9 g/dL (33.0-37.0); MEAN PLATELET VOLUME 8.6 fL (7.2-11.7); MONO # 1.1 K/uL (0.0-0.8); MONO % 18.5 % (0.0-10.0); NRBC % 0.2 % (0.0-2.0); RED CELL DISTRIBUTION WIDTH 14.1 % (11.5-14.5)
[2017-03-21 07:46] LABS: CHLORIDE 100 mmol/L (98-107); POTASSIUM 3.6 mmol/L (3.6-5.2); SODIUM 134 mmol/L (132-148)
[2017-03-21 07:49] LABS: ALKALINE PHOSPHATASE 91 U/L (38-126); ALT/SGPT 70 U/L (9-52); AST/SGOT 59 U/L (14-36); BILIRUBIN,TOTAL 0.8 mg/dL (0.2-1.3); BLOOD UREA NITROGEN 5 mg/dL (7-17); CALCIUM 9.3 mg/dl (8.6-10.4); CARBON DIOXIDE 23 mmol/L (22-30); GFR AFRICAN-AMERICAN > 60; GLUCOSE,RANDOM 91 mg/dL (65-105); TOTAL PROTEIN 6.9 g/dL (6.3-8.3)
[2017-03-21] MEDS: Enoxaparin 80 mg Syringe SC SCH (09:39)
[2017-03-21] MEDS: Omega-3-Acid Ethyl Esters 1 GM Cap PO SCH (09:39)
--- NOTE | 2017-03-21 16:19 | VASCLAB ---
PROCEDURE: Upper Extremity Venous Duplex Exam HISTORY: Right Pulmonary Embolism PRIORS: None. TECHNIQUE: Bilateral upper extremity, internal jugular, subclavian, axillary, brachial, ulnar, radial, basilic and upper cephalic veins were evaluated. Flow was assessed with color Doppler, compressibility, assessment of phasic flow and augmentation response. Report prepared by JOSE Vazquez FINDINGS: RIGHT: 1. Internal Jugular: 1.1. Compressibility - Fully compressible: Thrombus - None : Flow - Phasic: Augmentation -Normal: Reflux - None. 2. Subclavian: 2.1. Compressibility - Fully compressible: Thrombus - None : Flow - Phasic: Augmentation -Normal: Reflux - None. 3. Axillary: 3.1. Compressibility - Fully compressible: Thrombus - None : Flow - Phasic: Augmentation -Normal: Reflux - None. 4. Brachial: 4.1. Compressibility - Fully compressible: Thrombus - None: Flow - Phasic: Augmentation -Normal: Reflux - None. 5. Ulnar: 5.1. Compressibility - Fully compressible: Thrombus - None: Flow - Phasic: Augmentation -Normal: Reflux - None. 6. Radial: 6.1. Compressibility - Fully compressible: Thrombus - None: Flow - Phasic: Augmentation - Normal: Reflux - None. 7. Cephalic: 7.1. Compressibility - Fully compressible: Thrombus - None: Flow - Phasic: Augmentation -Normal: Reflux - None. 8. Basilic: 8.1. Compressibility - Fully compressible: Thrombus - None: Flow - Phasic: Augmentation -Normal: Reflux - None. LEFT: 1. Internal Jugular: 1.1. Compressibility - Fully compressible: Thrombus - None : Flow - Phasic: Augmentation -Normal: Reflux - None. 2. Subclavian: 2.1. Compressibility - Fully compressible: Thrombus - None : Flow - Phasic: Augmentation -Normal: Reflux - None. 3. Axillary: 3.1. Compressibility - Fully compressible: Thrombus - None : Flow - Phasic: Augmentation -Normal: Reflux - None. 4. Brachial: 4.1. Compressibility - Fully compressible: Thrombus - None: Flow - Phasic: Augmentation -Normal: Reflux - None. 5. Ulnar: 5.1. Compressibility - Fully compressible: Thrombus - None: Flow - Phasic: Augmentation -Normal: Reflux - None. 6. Radial: 6.1. Compressibility - Fully compressible: Thrombus - None: Flow - Phasic: Augmentation - Normal: Reflux - None. 7. Cephalic: 7.1. Compressibility - Fully compressible: Thrombus - None: Flow - Phasic: Augmentation -Normal: Reflux - None. 8. Basilic: 8.1. Compressibility - Fully compressible: Thrombus - None: Flow - Phasic: Augmentation -Normal: Reflux - None. OTHER FINDINGS: Right: None. Left: None. IMPRESSION: Right: No evidence of vein thrombosis of the right upper extremity with excellent venous flow. Normal valve function noted of the right side. Left: No evidence of vein thrombosis of the left upper extremity with excellent venous flow. Normal valve function noted of the left side.
[2017-03-21 16:57] LABS: CARDIOLIPIN AB (IGA) <11 APL (<=11)
[2017-03-21 16:58] VITALS: BP 131/87; PULSE 64; TEMP 98.8; O2SAT 98
--- NOTE | 2017-03-21 17:42 | CP.PCM.DIS ---
Provider - Provider Date of Admission: 03/13/17 12:26 Attending physician: Nina Coates DO Consults: Dr. Doty hematology oncology consult Time Spent in preparation of Discharge (in minutes): 35 Hospital Course - Lab Results Lab Results: Micro Results 03/18/17 22:56 Naris MRSA Culture - Final MRSA NOT DETECTED 03/16/17 09:11 Urine,Clean Catch Urine Culture - Final No Growth (<1,000 CFU/ML) 03/13/17 Unknown Naris MRSA Culture (Admit) - Final MRSA NOT DETECTED Most Recent Lab Values WBC 6.0 K/uL (4.8-10.8) 03/21/17 07:09 RBC 3.19 Mil/uL (3.80-5.20) L 03/21/17 07:09 Hgb 11.0 g/dL (11.0-16.0) 03/21/17 07:09 Hct 31.4 % (34.0-47.0) L 03/21/17 07:09 MCV 98.5 fL (81.0-99.0) 03/21/17 07:09 MCH 34.4 pg (27.0-31.0) H 03/21/17 07:09 MCHC 34.9 g/dL (33.0-37.0) 03/21/17 07:09 RDW 14.1 % (11.5-14.5) 03/21/17 07:09 Plt Count 371 K/uL (130-400) 03/21/17 07:09 MPV 8.6 fL (7.2-11.7) 03/21/17 07:09 Neut % (Auto) 50.6 % (50.0-75.0) 03/21/17 07:09 Lymph % (Auto) 30.0 % (20.0-40.0) 03/21/17 07:09 [place] % (Auto) 18.5 % (0.0-10.0) H 03/21/17 07:09 Eos % (Auto) 0.6 % (0.0-4.0) 03/21/17 07:09 Baso % (Auto) 0.3 % (0.0-2.0) 03/21/17 07:09 Neut # 3.1 K/uL (1.8-7.0) 03/21/17 07:09 Lymph # 1.8 K/uL (1.0-4.3) 03/21/17 07:09 [place] # 1.1 K/uL (0.0-0.8) H 03/21/17 07:09 Eos # 0.0 K/uL (0.0-0.7) 03/21/17 07:09 Baso # 0.0 K/uL (0.0-0.2) 03/21/17 07:09 Neutrophils % (Manual) 56 % (50-75) 03/20/17 11:13 Band Neutrophils % 13 % (0-2) H* 03/20/17 11:13 Lymphocytes % (Manual) 25 % (20-40) 03/20/17 11:13 Reactive Lymphs % 1 % (0-0) H 03/19/17 11:36 Monocytes % (Manual) 6 % (0-10) 03/20/17 11:13 Eosinophils % (Manual) 1 % (0-4) 03/19/17 11:36 Basophils % (Manual) 1 % (0-2) 03/19/17 11:36 Myelocytes % 1 % (0-0) H 03/19/17 11:36 Nucleated RBC % 1 % (0-0) H 03/14/17 06:32 Platelet Estimate Normal (NORMAL) 03/20/17 11:13 RBC Morphology Normal 03/20/17 11:13 Poikilocytosis (manual Slight 03/19/17 11:36 Target Cells Slight 03/19/17 11:36 PT 12.7 SECONDS (9.7-12.2) H 03/13/17 14:06 INR 1.1 03/13/17 14:06 D-Dimer, Quantitative 4683 ng/mlDDU (0-243) H 03/19/17 15:37 Puncture Site Rr 03/16/17 05:31 pCO2 32 mm/Hg (35-45) L 03/16/17 05:31 pO2 62 mm/Hg (80-100) L 03/16/17 05:31 HCO3 27.7 mmol/L (21-28) 03/16/17 05:31 ABG pH 7.52 (7.35-7.45) H 03/16/17 05:31 ABG Total CO2 27.1 mmol/L (22-28) 03/16/17 05:31 ABG O2 Saturation 96.2 % (95-98) 03/16/17 05:31 ABG Base Excess 3.7 mmol/L (-2.0-3.0) H 03/16/17 05:31 [place] Test Pos 03/16/17 05:31 ABG Potassium 2.9 mmol/L (3.6-5.2) L 03/16/17 05:31 VBG pH 7.33 (7.32-7.43) 03/13/17 10:50 VBG pCO2 36 mmHg (40-60) L 03/13/17 10:50 VBG HCO3 19.1 mmol/L 03/13/17 10:50 VBG Total CO2 20.1 mmol/L (22-28) L 03/13/17 10:50 VBG O2 Sat (Calc) 60.1 % (40-65) 03/13/17 10:50 VBG Base Excess -6.2 mmol/L (0.0-2.0) L 03/13/17 10:50 VBG Potassium 3.2 mmol/L (3.6-5.2) L 03/13/17 10:50 A-a O2 Difference 48.0 mm/Hg 03/16/17 05:31 Respiratory Index 0.8 03/16/17 05:31 Sodium 138.0 mmol/l (132-148) 03/16/17 05:31 Chloride 106.0 mmol/L (98-107) 03/16/17 05:31 Glucose 95 mg/dl (65-105) 03/16/17 05:31 Lactate 1.1 mmol/L (0.7-2.1) 03/16/17 05:31 FiO2 21.0 % 03/16/17 05:31 Crit Value Called To Dr coates 03/13/17 12:35 Crit Value Called By Antelmo guzman 03/13/17 12:35 Crit Value Read Back Y 03/13/17 12:35 Blood Gas Notified Time 1240 03/13/17 12:35 Sodium 134 mmol/L (132-148) 03/21/17 07:09 Potassium 3.6 mmol/L (3.6-5.2) 03/21/17 07:09 Chloride 100 mmol/L (98-107) 03/21/17 07:09 Carbon Dioxide 23 mmol/L (22-30) 03/21/17 07:09 Anion Gap 15 (10-20) 03/21/17 07:09 BUN 5 mg/dL (7-17) L 03/21/17 07:09 Creatinine 0.7 mg/dL (0.7-1.2) 03/21/17 07:09 Est GFR ( Amer) > 60 03/21/17 07:09 Est GFR (Non-Af Amer) > 60 03/21/17 07:09 POC Glucose (mg/dL) 113 mg/dL (65-110) H 03/21/17 16:30 Random Glucose 91 mg/dL (65-105) 03/21/17 07:09 Calcium 9.3 mg/dl (8.6-10.4) 03/21/17 07:09 Phosphorus 4.3 mg/dL (2.5-4.5) 03/20/17 11:13 Magnesium 1.7 mg/dL (1.6-2.3) 03/20/17 11:13 Iron 201 ug/dL (37-170) H 03/13/17 14:07 TIBC 194 ug/dL (250-450) L 03/13/17 14:07 % Saturation 104 (20-55) H 03/13/17 14:07 Ferritin 1940.0 ng/mL 03/13/17 14:06 Total Bilirubin 0.8 mg/dL (0.2-1.3) 03/21/17 07:09 Direct Bilirubin 1.1 mg/dL (0.0-0.4) H 03/13/17 14:06 AST 59 U/L (14-36) H D 03/21/17 07:09 ALT 70 U/L (9-52) H 03/21/17 07:09 Alkaline Phosphatase 91 U/L (38-126) 03/21/17 07:09 Ammonia < 9 umol/L (9-33) L 03/13/17 12:38 Lactate Dehydrogenase 1749 U/L (313-618) H 03/13/17 10:48 Total Protein 6.9 g/dL (6.3-8.3) 03/21/17 07:09 Albumin 3.5 g/dL (3.5-5.0) 03/21/17 07:09 Globulin 3.5 gm/dL (2.2-3.9) 03/21/17 07:09 Albumin/Globulin Ratio 1.0 (1.0-2.1) 03/21/17 07:09 Triglycerides 152 mg/dL (0-149) H D 03/15/17 06:04 Cholesterol 206 mg/dL (0-199) H 03/14/17 06:32 LDL Cholesterol Direct 82 mg/dL (0-129) 03/14/17 06:32 HDL Cholesterol 51 mg/dL (30-70) 03/14/17 06:32 Lipase 2159 U/L (23-300) H 03/16/17 06:13 TSH 3rd Generation 2.44 mIU/L (0.46-4.68) 03/15/17 06:04 Beta HCG, Quant < 2.39 mIU/ML 03/13/17 10:48 Arterial Blood Potassium 2.9 mmol/L (3.6-5.2) L 03/16/17 05:31 Venous Blood Potassium 3.2 mmol/L (3.6-5.2) L 03/13/17 10:50 Urine Color Yellow (YELLOW) 03/16/17 13:51 Urine Clarity Clear (Clear) 03/16/17 13:51 Urine pH 8.0 (5.0-8.0) 03/16/17 13:51 Ur Specific [place] 1.006 (1.003-1.030) 03/16/17 13:51 Urine Protein Negative mg/dL (NEGATIVE) 03/16/17 13:51 Urine Glucose (UA) Normal mg/dL (Normal) 03/16/17 13:51 Urine Ketones 1+ mg/dL (NEGATIVE) H 03/16/17 13:51 Urine Blood Negative (NEGATIVE) 03/16/17 13:51 Urine Nitrate Negative (NEGATIVE) 03/16/17 13:51 Urine Bilirubin Negative (NEGATIVE) 03/16/17 13:51 Urine Urobilinogen 4.0 mg/dL (0.2-1.0) H 03/16/17 13:51 Ur Leukocyte Esterase Neg [place]/uL (Negative) 03/16/17 13:51 Urine WBC (Auto) < 1 /hpf (0-5) 03/16/17 13:51 Urine RBC (Auto) 16 /hpf (0-3) H 03/13/17 17:46 Ur Squamous Epith Cells 11 /hpf (0-5) H 03/13/17 17:46 Urine Bacteria Few (<OCC) H 03/13/17 17:46 Urine HCG, Qual Negative (NEGATIVE) 03/19/17 17:16 Urine Opiates Screen Positive (NEGATIVE) 03/13/17 17:43 Urine Methadone Screen Negative (NEGATIVE) 03/13/17 17:43 Acetaminophen < 10.0 ug/mL (10.0-30.0) L 03/13/17 14:06 Ur Barbiturates Screen Negative (NEGATIVE) 03/13/17 17:43 Ur Phencyclidine Scrn Negative (NEGATIVE) 03/13/17 17:43 Ur Amphetamines Screen Negative (NEGATIVE) 03/13/17 17:43 U Benzodiazepines Scrn Negative (NEGATIVE) 03/13/17 17:43 U Oth Cocaine Metabols Negative (NEGATIVE) 03/13/17 17:43 U Cannabinoids Screen Negative (NEGATIVE) 03/13/17 17:43 Alcohol, Quantitative 209 mg/dl (0-10) H 03/13/17 10:44 IgG 893.6 mg/dL (700.0-1600.0) 03/13/17 15:33 IgA 202.2 mg/dL (70.0-400.0) 03/13/17 15:33 IgM 155.3 mg/dL (40.0-230.0) 03/13/17 15:33 ISABEL 6 Profile Negative (NEGATIVE) 03/13/17 15:19 Anti-Mitochondrial Ab Negative (Negative) 03/13/17 15:33 Anti-Smooth Muscle Ab Negative (Negative) 03/13/17 15:33 Anti-Cardiolipin IgG Ab <14 GPL (<=14) 03/20/17 11:13 Anti-Cardiolipin IgA Ab <11 APL (<=11) 03/20/17 11:13 Anti-Cardiolipin IgM Ab <12 MPL (<=12) 03/20/17 11:13 Liver/Kid Microsomes Ab <=20.0 U (<=20.0) 03/13/17 15:33 Hepatitis A IgM Ab Negative (NEGATIVE) 03/13/17 14:06 Hep Bs Antigen Negative (NEGATIVE) 03/13/17 14:06 Hep B Core IgM Ab Negative (NEGATIVE) 03/13/17 14:06 Hepatitis C Antibody Negative (NEGATIVE) 03/13/17 14:06 HIV 1&2 Antibody Screen Negative (NEGATIVE) 03/13/17 14:06 H.influenzae Type B Ag Not required (NEGATIVE) 03/13/17 16:00 Ur L.pneumophila Ag Negative (NEGATIVE) 03/13/17 16:29 Mycoplasma pneumon IgM Negative (NEGATIVE) 03/13/17 16:29 N.meningitidis ACY/W135 Not required (NEGATIVE) 03/13/17 16:00 N.meningi B/E.coli K1 Ag Not required (NEGATIVE) 03/13/17 16:00 Group B Strep Antigen Not required (NEGATIVE) 03/13/17 16:00 S. pneumoniae Antigen Negative (NEGATIVE) 03/13/17 16:00 - Hospital Course Hospital Course: HPI Patient is a 31 year old female past medical history of hypertension who presents tot he ED with complaints of abdominal pain, vomiting and watery diarrhea that started 2-3 days ago. Patient describes her abdominal pain as a 7/ 10 continuos cramping pain that is localized to the upper abdomen with an epigastric origin. Patient reports that her abdominal pain radiates to the middle of her back. Patient reports that she had a lot of wine glasses and 3 shots of vodka at a green party 1-2 days ago and noted increased alcohol intake at the green party. Furthermore, patient admits to daily alcohol use of ( 2-3 beers, 3-5 shots and wine). Patient admits to associated symptoms of SOB, hot flashes, dizziness, 1-2 episodes of watery diarrhea daily for the past 2-3 days, decrease PO intake for 4 days, abdominal distentions, unusual bloating. Patient denies fever, chills, chest pain, hematemesis, hematochezia. Patient was recently in the ER (03/05/17) for symptoms of URI and abdominal pain. Patient had an abdominal US, which showed enlarged liver measuring up to 20.6cm in length with diffuse increased echogenicity suggestive for fatty infiltration. Patient was also discharge with Augmentin 875-125mg for URI symptoms. Hospital course: Patient was admitted for pancreatitis with elevated lipase, elevated LFTs and high triglycerides. On admission 03/13 Lipase: 6496, lipase continued to trend down. 03/18 Lipase: 2405 Dr. Okeefe was consulted. Pertinent labs towards the beginning of hospital course: 03/13 T, LDL 252, HDL 88 03/15 T, likely due to decrease in alcohol in the patient's system. ISABEL: negative, Hepatitis: negative, HIV negative, anti-mitochondrial antibody negative, anti-smooth muscle antibody negative During hospital stay, Patient was also found to have swelling of her legs, doppler was ordered showing no evidence of thrombososis or thromboembolic event. d dimer elevated. CTA was ordered and a PE was found in right upper lobe of the lung. Consulted Dr. Doty for workup for thrombophilia and advice as to etiology of the PE. Patient was placed on Lovenox 70mg QD. Dr. Doty was consulted. patient told Dr. Doty and Dr. Marquez that she used to take Depo provera and stopped recently. Some thrombophilia studies were ordered. Patient was also advised to quit alcohol consumption due the fact that pancreatitis can be caused by alcohol as well as emma drinking can increase coagulopathies. Patient stated she understood the severity of alcohol abuse on different aspects of her health and states she will stop. Per Dr. Doty: recomends Pradaxa 150mg POBID. Prescription was written for case finishing machine adjuster to find approval for medication. therapeutic anticoagulation lovenox 70mg SC QD, inherited thrombophilia work up was sent up to follow up at clinic. Patient was instructed to cease hormonal control. 03/21: Patient seen and examined at bedside. Patient denies mid-epigastric pain. patient had back pain, which was relieved with myofascial release, soft tissue massage of her mid-thoracic region. patient tolerated the treatment and stated she felt better after the treatment. 03/21 labs that resulted prior to discharge anti-cardiolipin IgG ab <14, anti-cardiolipin IgA <11, anti-cardiolipin IgM ab < 12 Duplex upper extremity of artery 03/21 negative Patient discharged with instructions to: Patient is medically stable for discharge Patient is to establish with the [facility] the for one week. [phone] Do Not take PO/IM contraceptive f/u AA list to be given by social work on discharge follow up hypercoagulable workup with [facility] a doctor's note was written for patient to return to work on April 01, 2017 - Date & Time of H&P Date of H&P: 03/21/17 Time of H&P: 17:43 Discharge Exam - Head Exam Head Exam: ATRAUMATIC - Eye Exam Eye Exam: EOMI, Normal appearance - ENT Exam ENT Exam: Mucous Membranes Moist - Neck Exam Neck exam: Full Rom - Respiratory Exam Respiratory Exam: NORMAL BREATHING PATTERN. absent: Accessory Muscle Use, Respiratory Distress, Stridor - Cardiovascular Exam Cardiovascular Exam: REGULAR RHYTHM, +S1, +S2. absent: Bradycardia, Tachycardia - Extremities Exam Extremities exam: full ROM - Back Exam Back exam: paraspinal tenderness Additional comments: paraspinal tissue tension at T6-T10, tenderness to palpation of the paraspinal muscles - Neurological Exam Neurological exam: Alert, CN II-XII Intact, Normal Gait, Oriented x3 - Psychiatric Exam Psychiatric exam: Normal Affect, Normal Mood - Skin Skin Exam: Dry, Intact, Normal Color, Warm Discharge Plan - Discharge Medications Prescriptions: amLODIPine [Norvasc] 10 mg PO DAILY #30 tab Dabigatran [Pradaxa] 150 mg PO TID #60 cap Fenofibrate [Tricor] 145 mg PO HS #30 tab Gabapentin [Neurontin] 100 mg PO TID #90 cap Lisinopril [Zestril] 5 mg PO DAILY #30 tab - Follow Up Plan Condition: FAIR Disposition: HOME/ ROUTINE Patient education suggested?: Yes Instructions: Lisinopril (By mouth), Gabapentin (By mouth), Amlodipine (By mouth), Fenofibrate (By mouth), Dabigatran (By mouth), Pancreatitis (DC) Additional Instructions: Patient is medically stable for discharge Patient is to establish with the [facility] the for one week. [phone] Do Not take PO/IM contraceptive f/u AA list to be given by social work on discharge follow up hypercoagulable workup with [facility] a doctor's note was written for patient to return to work on April 01, 2017 Referrals: Jailene Kurtz MD [Staff Provider] - Clinical Quality Measures - CQM - Stroke Antithrombotic Prescribed: Yes Anticoagulation Prescribed for Atrial Flutter, Atrial Fibrillation and History of:: Not Applicable
--- NOTE | 2017-03-21 22:50 | PN ---
DATE: ENDOCRINOLOGY FOLLOWUP NOTE LOCATION: Room 353. SUBJECTIVE: This is a 31-year-old female, presenting here with acute pancreatitis and concomitant alcoholic intoxication and marked hypertriglyceridemia, and her symptoms improved clinically and metabolically as noted thereof. Her latest chemistries showed a BUN of 5, sodium 134, potassium 3.6, chloride 100, CO2 of 23, glucose 91, and creatinine 0.7. Her latest lipase level is 2159 as noted. So, at this time, we will continue the IV hydration as given with concomitant omega-3 fatty acids given twice daily and fenofibrate given as 145 mg at bedtime as noted. The lipoprotein fractionation, which was sent out to a reference lab is still pending at this time. This will confirm and/or indicate the presence of underlying familial combined dyslipidemia. We will follow and advise accordingly. Asiya Sung MD
[2017-03-22 19:58] LABS: HDL CHOLESTEROL 31 mg/dL (> OR = 46); VLDL 94 mg/dL
== END 2017-03-21 18:00 | disposition home or self-care (01) | DRG 439 ==
LOC: C.ER 10:13 → EEVIPCON 12:26 → C.9I 12:26 → C.3T 03-18 22:38
PROVIDERS: ADMIT Hospitalist; ATTEND Hospitalist
DX: K85.20 Alcohol induced acute pancreatitis without necrosis or infection (principal); E87.2 Acidosis; D69.6 Thrombocytopenia, unspecified; F10.288 Alcohol dependence with other alcohol-induced disorder; E11.9 Type 2 diabetes mellitus without complications; E78.1 Pure hyperglyceridemia; E78.5 Hyperlipidemia, unspecified; E83.39 Other disorders of phosphorus metabolism; E87.6 Hypokalemia; F32.9 Major depressive disorder, single episode, unspecified; F41.1 Generalized anxiety disorder; F43.10 Post-traumatic stress disorder, unspecified; G47.00 Insomnia, unspecified; I10 Essential (primary) hypertension; K21.9 Gastro-esophageal reflux disease without esophagitis; K70.10 Alcoholic hepatitis without ascites; N95.1 Menopausal and female climacteric states; R79.1 Abnormal coagulation profile; Z79.4 Long term (current) use of insulin; Z91.14 Patient's other noncompliance with medication regimen

== ENCOUNTER 2017-03-26 06:53 | Emergency (ER) | payer OTHER ==
[2017-03-26 07:00] VITALS: PULSE 98; RESP 16; TEMP 97.9
[2017-03-26] MEDS ORDERED: Sodium Chloride 0.9% 1,000 ML IV STA (07:18)
[2017-03-26] MEDS ORDERED: Apap-Butalbital-Caffeine 325-50-40mg Tab PO STA (07:19)
--- NOTE | 2017-03-26 07:24 | C.PDOC ---
History Of Present Illness <Sobia Lira - Last Filed: 03/26/17 09:07> <Jacoby Comer - Last Filed: 03/26/17 15:11> Patient is a 31 year old female presents to Emergency Department with complaints of throbbing left sided headache associated with light sensitivity since yesterday. Patient notes taking extra strength Tylenol with minimal relief. Patient was unsure if she could take any other medications because she is currently taking blood thinners, notes she was recently diagnosed with Pulmonary Embolism to the right lung. Patient admits to having similar headaches in the past, and states it feels like migraine, although she has not been diagnosed with migraine in the past. Otherwise, denies any fever, chills, visual changes, dizziness, chest pain, or shortness of breath. (Sobia Lira) History Per: Patient History/Exam Limitations: no limitations Onset/Duration Of Symptoms: Days (1) Current Symptoms Are (Timing): Still Present Quality: Other (throbbing) Preceeding Symptoms: denies: Visual Disturbances Associated Symptoms: Photophobia. denies: Blurred Vision, Nausea, Vomiting, Extremity Weakness Additional History Per: Patient <Sobia Lira - Last Filed: 03/26/17 09:07> <Jacoby Comer - Last Filed: 03/26/17 15:11> Time Seen by Provider: 03/26/17 07:11 Chief Complaint (Nursing): Headache Past Medical History Reviewed: Historical Data, Nursing Documentation, Vital Signs - Medical History PMH: Gastritis, HTN, Pulmonary Embolism (2017) Denies: Chronic Kidney Disease Family History: States: Unknown Family Hx - Social History Hx Tobacco Use: No Hx Alcohol Use: No Hx Substance Use: No - Immunization History Hx Tetanus Toxoid Vaccination: Yes Hx Influenza Vaccination: Yes Hx Pneumococcal Vaccination: No <Sobia Lira Evonne - Last Filed: 03/26/17 09:07> Vital Signs: Last Vital Signs Temp 97.9 F 03/26/17 06:56 Pulse 98 H 03/26/17 09:13 Resp 16 03/26/17 09:13 BP 127/87 03/26/17 09:13 Pulse Ox 100 03/26/17 09:13 Review Of Systems Except As Marked, All Systems Reviewed And Found Negative. Constitutional: Negative for: Fever, Chills Eyes: Negative for: Vision Change Cardiovascular: Negative for: Chest Pain, Palpitations Respiratory: Negative for: Cough, Shortness of Breath Gastrointestinal: Negative for: Nausea, Vomiting Musculoskeletal: Negative for: Neck Pain Skin: Negative for: Rash Neurological: Positive for: Headache. Negative for: Weakness, Numbness, Dizziness <Sobia Lira - Last Filed: 03/26/17 09:07> Physical Exam - Physical Exam Appears: Non-toxic, Other (Uncomfortable) Skin: Normal Color, Warm, Dry Head: Atraumatic, Normacephalic Eye(s): bilateral: EOMI, Other (photophobia) Nose: Normal Oral Mucosa: Moist Throat: Normal, No Erythema, No Exudate Neck: Normal ROM, Supple Chest: Symmetrical Cardiovascular: Rhythm Regular, No Murmur Respiratory: Normal Breath Sounds, No Rales, No Rhonchi, No Wheezing Extremity: Normal ROM, No Deformity Neurological/Psych: Oriented x3, Normal Speech, Other (no focal deficits) <Sobia Lira - Last Filed: 03/26/17 09:07> ED Course And Treatment O2 Sat by Pulse Oximetry: 97 (RA) Pulse Ox Interpretation: Normal <Sobia Lira - Last Filed: 03/26/17 09:07> Medical Decision Making <Sobia Liar - Last Filed: 03/26/17 09:07> <Jacoby Comer - Last Filed: 03/26/17 15:11> Medical Decision Making: Impression: headache Prior records reviewed: Patient was admitted on 03/13/17 for pancreatitis. During hospitalization, patient was found to have swelling legs and elevated D- dimer. CTA revealed PE in right upper lobe of lung. Plan: * IV NS, Reglan * Fioricet PO Reassess: 0855 On re-evaluation patient reports feeling much better, she is seated up comfortably with stable vital signs. She reports headache has much improved, denies any dizziness, weakness and has no neuro deficits and she is tolerating po. She feels comfortable going home. Rx fioricet given. Patient advised to rest , drink fluids and take analgesic as needed. Instruct to continue with her current medication regimen. (Sobia Lira) Disposition Counseled Patient/Family Regarding: Studies Performed, Diagnosis, Need For Followup, Rx Given - Disposition Disposition Time: 08:58 - POA Present On Arrival: None <Sobia Lira - Last Filed: 03/26/17 09:07> <Jacoby Comer - Last Filed: 03/26/17 15:11> - Disposition Referrals: Ramírez Guevara MD [Staff Provider] - Disposition: HOME/ ROUTINE Condition: IMPROVED Additional Instructions: Please take Fioricet for headache as needed every 8 hours. Follow up with your primary physician in few days for further evaluation. Continue with your current medications. Return to the Emergency Department for any worsening symptoms including: fever, dizziness, vomiting, loss of consciousness. Prescriptions: Acetaminophen/Butalbital/Caf [Fioricet] 1 tab PO Q8 PRN #20 tab PRN Reason: Headache Instructions: Acute Headache (DC) Forms: [employer] (Finnish) - Clinical Impression Clinical Impression: Headache - PA / DIRECTIONAL DRILLER / Resident Statement / has reviewed & agrees with the documentation as recorded. - Scribe Statement The provider has reviewed the documentation as recorded by the Scribe <Sobia Lira - Last Filed: 03/26/17 09:07> - PA / DIRECTIONAL DRILLER / Resident Statement / has reviewed & agrees with the documentation as recorded. (I was available for consult, I did not evaluate patient, I have reviewed the chart.) <Jacoby Comer - Last Filed: 03/26/17 15:11> - Scribe Statement Debora Marquez All medical record entries made by the Scribe were at my direction and personally dictated by me. I have reviewed the chart and agree that the record accurately reflects my personal performance of the history, physical exam, medical decision making, and the department course for this patient. I have also personally directed, reviewed, and agree with the discharge instructions and disposition. (Sobia Lira)
[2017-03-26] MEDS ORDERED: Apap-Butalbital-Caffeine 325-50-40mg Tab ONE (07:45)
[2017-03-26] MEDS ORDERED: Sodium Chloride 0.9% 1,000 ML ONE (07:56)
[2017-03-26 09:14] VITALS: BP 127/87; O2SAT 100
== END 2017-03-26 09:19 | disposition home or self-care (01) ==
LOC: C.ER 06:53
DX: R51 Headache (principal)
CPT/HCPCS: 96361; 96374; 99284; J2765; J7040

== ENCOUNTER 2017-05-24 18:48 | Emergency (ER) | payer OTHER ==
[2017-05-24 18:55] VITALS: BMI 23.8
--- NOTE | 2017-05-24 19:18 | C.PDOC ---
History Of Present Illness Patient is a 31 y/o female who presents to the ED with a complaint of abdominal pain associated with weakness, nausea, and vomiting for the last 2 days. Patient reports being unable to tolerate PO. Denies drinking tobacco or alcohol use. Admits to currently being on menstrual period. Patient is currently on takes Pradaxa for previous blood clots in the left lung and stomach for the last 3 months; patient also takes medication for blood pressure, cholesterol, and everyday vitamins. No other physical complaints at this time. Time Seen by Provider: 05/24/17 19:05 Chief Complaint (Nursing): Abdominal Pain History Per: Patient History/Exam Limitations: no limitations Onset/Duration Of Symptoms: Days (2 days) Current Symptoms Are (Timing): Still Present Associated Symptoms: Nausea, Vomiting, Other (lethargy ) Recent travel outside of the [place]: No Past Medical History Reviewed: Historical Data, Nursing Documentation, Vital Signs Vital Signs: Last Vital Signs Temp 98.2 F 05/24/17 19:21 Pulse 104 H 05/24/17 19:21 Resp 20 05/24/17 19:21 BP 117/80 05/24/17 19:21 Pulse Ox 97 05/24/17 19:27 - Medical History PMH: Gastritis, HTN, Pulmonary Embolism (2017) Denies: Chronic Kidney Disease Surgical History: No Surg Hx Family History: States: Unknown Family Hx - Social History Hx Tobacco Use: No Hx Alcohol Use: No Hx Substance Use: No - Immunization History Hx Tetanus Toxoid Vaccination: Yes Hx Influenza Vaccination: Yes Hx Pneumococcal Vaccination: No Review Of Systems Constitutional: Positive for: Weakness Gastrointestinal: Positive for: Nausea, Vomiting, Abdominal Pain Physical Exam - Physical Exam Appears: Non-toxic, Other (lethargic) Skin: Normal Color, Warm, Dry Head: Atraumatic, Normacephalic Oral Mucosa: Moist Chest: Symmetrical Cardiovascular: Rhythm Regular, No Murmur Respiratory: Normal Breath Sounds, No Rales, No Rhonchi, No Wheezing Gastrointestinal/Abdominal: Soft, No Tenderness, No Guarding, No Rebound, Other (palpable lipoma in RLQ) ED Course And Treatment - Laboratory Results Result Diagrams: 05/24/17 19:40 05/24/17 19:40 O2 Sat by Pulse Oximetry: 97 (room air) Pulse Ox Interpretation: Normal Progress Note: Blood work ordered. Disposition - Disposition Disposition: HOME/ ROUTINE Disposition Time: 20:20 Condition: STABLE Instructions: Abdominal Pain (ED) Forms: [employer] (Bulgarian) - Clinical Impression Clinical Impression: Nausea, Abdominal pain - Scribe Statement The provider has reviewed the documentation as recorded by the Scribe Tabby Andino All medical record entries made by the Scribe were at my direction and personally dictated by me. I have reviewed the chart and agree that the record accurately reflects my personal performance of the history, physical exam, medical decision making, and the department course for this patient. I have also personally directed, reviewed, and agree with the discharge instructions and disposition.
[2017-05-24 19:46] LABS: BASO # 0.1 K/uL (0.0-0.2); BASO % 1.1 % (0.0-2.0); HEMATOCRIT 43.3 % (34.0-47.0); LYMPH # 2.9 K/uL (1.0-4.3); LYMPH % 55.4 % (20.0-40.0); MEAN CORPUSCULAR HEMOGLOBIN 32.2 pg (27.0-31.0); MEAN CORPUSCULAR HGB CONC 35.1 g/dL (33.0-37.0); MEAN PLATELET VOLUME 7.5 fL (7.2-11.7); MONO # 0.2 K/uL (0.0-0.8); MONO % 2.9 % (0.0-10.0); RED CELL DISTRIBUTION WIDTH 12.5 % (11.5-14.5); WHITE BLOOD COUNT 5.3 K/uL (4.8-10.8)
[2017-05-24 19:47] LABS: MEAN CELL VOLUME 91.7 fL (81.0-99.0)
[2017-05-24 19:55] LABS: INR 1.4
[2017-05-24 19:56] LABS: ALB/GLOB RATIO 1.6 (1.0-2.1); ALKALINE PHOSPHATASE 55 U/L (38-126); ALT/SGPT 33 U/L (9-52); AST/SGOT 49 U/L (14-36); BILIRUBIN,TOTAL 1.2 mg/dL (0.2-1.3); BLOOD UREA NITROGEN 15 mg/dL (7-17); CALCIUM 9.1 mg/dl (8.6-10.4); CARBON DIOXIDE 24 mmol/L (22-30); CHLORIDE 95 mmol/L (98-107); GFR AFRICAN-AMERICAN > 60; GLUCOSE,RANDOM 92 mg/dL (65-105); POTASSIUM 4.4 mmol/L (3.6-5.2); SODIUM 136 mmol/L (132-148); TOTAL PROTEIN 7.8 g/dL (6.3-8.3)
[2017-05-24 20:33] VITALS: BP 105/75; PULSE 100; RESP 16; TEMP 98; O2SAT 98
== END 2017-05-24 20:40 | disposition home or self-care (01) ==
LOC: C.ER 18:48
DX: R11.2 Nausea with vomiting, unspecified (principal); R10.9 Unspecified abdominal pain; I10 Essential (primary) hypertension
CPT/HCPCS: 80053; 83690; 85025; 85610; 85730; 96374; 99283; J2405

== ENCOUNTER 2017-05-26 07:44 | Inpatient (IN) | payer OTHER ==
[2017-05-26 07:45] VITALS: BMI 23.8
--- NOTE | 2017-05-26 08:16 | C.PDOC ---
History Of Present Illness 31 yr old female presents to the ER with severe SOB for the past 3 days. Patient was seen on May 24 for abdominal discomfort, nausea and vomiting. Patient is currently being treated for pulmonary embolism related to control pills, diagnosed May 2017 and had a negative DVT at the time. Patient states she has been unable to take Pradaxa for the past 3 days due to vomiting. States she feels like her legs are swollen. Denies history of DVT, chest pain, cough, abdominal pain, diarrhea, weakness or numbness. Time Seen by Provider: 05/26/17 08:09 Chief Complaint (Nursing): Shortness Of Breath History Per: Patient History/Exam Limitations: no limitations Onset/Duration Of Symptoms: Days (3) Current Symptoms Are (Timing): Still Present Past Medical History Reviewed: Historical Data, Nursing Documentation, Vital Signs Vital Signs: Last Vital Signs Temp 98.3 F 05/26/17 08:27 Pulse 120 H 05/26/17 11:08 Resp 20 05/26/17 11:08 BP 119/87 05/26/17 11:08 Pulse Ox 100 05/26/17 11:08 - Medical History PMH: Gastritis, HTN, Hypercholesterolemia, Pulmonary Embolism (2017) Family History: States: No Known Family Hx - Social History Hx Tobacco Use: No Hx Alcohol Use: No Hx Substance Use: No - Immunization History Hx Tetanus Toxoid Vaccination: Yes Hx Influenza Vaccination: Yes Hx Pneumococcal Vaccination: No Review Of Systems Except As Marked, All Systems Reviewed And Found Negative. Cardiovascular: Negative for: Chest Pain Respiratory: Positive for: Shortness of Breath (Severe). Negative for: Cough Gastrointestinal: Positive for: Nausea, Vomiting. Negative for: Abdominal Pain , Diarrhea Neurological: Negative for: Weakness, Numbness Physical Exam - Physical Exam Appears: Non-toxic, In Acute Distress (Moderate respiratory distress) Skin: Warm, Dry, No Rash Head: Atraumatic, Normacephalic Eye(s): bilateral: Normal Inspection, PERRL, EOMI Ear(s): Bilateral: Normal Oral Mucosa: Moist Tongue: Normal Appearing Lips: Normal Appearing Throat: Normal, No Erythema, No Exudate, No Drooling Neck: Normal, Normal ROM, No Supple Cardiovascular: Rhythm Regular, No Murmur Respiratory: Normal Breath Sounds, No Rales, No Rhonchi, No Stridor, No Wheezing Gastrointestinal/Abdominal: Normal Exam, Soft, No Tenderness, No Guarding, No Rebound Extremity: Normal ROM, No Tenderness, No Calf Tenderness, No Swelling, Other ( Lower Extremity - No edema) Neurological/Psych: Oriented x3, Normal Speech, Normal Motor, Normal Sensation Gait: Steady ED Course And Treatment - Laboratory Results Result Diagrams: 05/26/17 09:00 05/26/17 09:00 Lab Interpretation: Normal (d-dimer neg, UDS neg) Urine POC: Negative ECG: Interpreted By Me ECG Rhythm: Sinus Tachycardia ECG Interpretation: Abnormal Rate From EC O2 Sat by Pulse Oximetry: 98 Pulse Ox Interpretation: Normal - Radiology CXR: Interpreted by Me, Viewed By Me, Read By Radiologist CXR Interpretation: Yes: No Acute Disease, Other (IMPRESSION: No active pulmonary disease.) - CT Scan/US CT - Angio Chest Other Rad Studies (CT/US): Read By Radiologist, Radiology Report Reviewed CT/US Interpretation: PROCEDURE: CT Chest with contrast (Pulmonary Angiogram). HISTORY: Worsening SOB, recent L PE. COMPARISON: Plain radiographs performed the same day and CTA chest from 03/19/2017. TECHNIQUE: Axial computed tomography images were obtained of the chest in the pulmonary arterial phase of enhancement. Coronal and sagittal reformatted images were created and reviewed. Intravenous contrast dose: 100 mL Visipaque. Radiation dose: Total exam DLP = 229.29 mGy-cm. This CT exam was performed using one or more of the following dose reduction techniques: Automated exposure control, adjustment of the mA and/or kV according to patient size, and/or use of iterative reconstruction technique. FINDINGS: PULMONARY ARTERIES: There are no filling defects in the pulmonary arteries to suggest acute pulmonary embolism. AORTA: No aortic dissection. No thoracic aortic aneurysm. LUNGS: The lungs are well inflated and clear. No nodule, mass or pulmonary consolidation. PLEURAL SPACES : No pleural effusions. No pneumothorax. HEART: The heart is normal in size. No pericardial effusion. LYMPH NODES: No pathologic lymphadenopathy. BONES, CHEST WALL: Unremarkable. No fracture or destructive lesion. OTHER FINDINGS: There is mild hepatomegaly and diffuse low-attenuation in the imaged liver. IMPRESSION: 1. No CT evidence for acute pulmonary embolism. Clear lungs. 2. Mild hepatomegaly. Diffuse low-attenuation in the imaged liver could be related to hepatic steatosis however parenchymal infectious/inflammatory/toxic etiologies cannot be entirely excluded. Clinical and laboratory correlation and follow-up is advised. Progress Note: 1100: persistent n/v, zofran repeated, IVF bolus repeated. Reevaluation Time: 11:18 Reassessment Condition: Unchanged - Physician Consult Information Outcome Of Conversation: 1115: d/w Dr. Hanks- Hospitalist covering pts for Dr. Guevara. ok to admit. Medical Decision Making Medical Decision Making: PLAN: * CT - Angio Chest * CXR * EKG * Drug Screen * Troponin * D-Dimer * CBC * CMP * BNP * HCG * Urinalysis * Lovenox SC * Pepcid IVP * Zofran IVP * Lactated Ringer IV initially concerning for PE as pt moderately/severely SOB and tachycardic and non-compliant with Pradaxa due to n/v x 2-3 days. d-dimer neg and PE study neg for PE Improving with hydration and pepcid/zofrn but will require more treatment as inpt. Lipase pending as pt w h/o alcoholic pancreatitis but does not have abd pain today. Disposition Doctor Will See Patient In The: Hospital Counseled Patient/Family Regarding: Studies Performed, Diagnosis - Disposition Disposition: HOSPITALIZED Disposition Time: 11:21 Condition: GOOD Forms: [employer] (Yakut) - Clinical Impression Clinical Impression: Vomiting, Shortness of breath - Scribe Statement The provider has reviewed the documentation as recorded by the Dulceibtyler Gamboa Provider Attestation: All medical record entries made by the Dulceibtyler were at my direction and personally dictated by me. I have reviewed the chart and agree that the record accurately reflects my personal performance of the history, physical exam, medical decision making, and the department course for this patient. I have also personally directed, reviewed, and agree with the discharge instructions and disposition.
[2017-05-26] MEDS ORDERED: Enoxaparin 40 mg Syringe SC STA (08:17)
[2017-05-26] MEDS ORDERED: Lactated Ringer's 1,000 ML IV ONE ×2 (08:17→11:09)
[2017-05-26] MEDS ORDERED: Iodixanol 320 MG/ML 100 ML BOTTLE IV ONE (08:28)
--- NOTE | 2017-05-26 08:54 | RAD ---
PROCEDURE: CHEST RADIOGRAPH, 1 VIEW HISTORY: Shortness of breath COMPARISON: CT chest from 03/13/2017 FINDINGS: LUNGS: The lungs are well inflated and clear. PLEURA: No pneumothorax or pleural fluid seen. CARDIOVASCULAR: Normal. OSSEOUS STRUCTURES: No significant abnormalities. VISUALIZED UPPER ABDOMEN: Normal. OTHER FINDINGS: None. IMPRESSION: No active pulmonary disease.
[2017-05-26] MEDS ORDERED: Enoxaparin 30 mg Syringe ONE (09:07)
[2017-05-26] MEDS ORDERED: Enoxaparin 40 mg Syringe ONE (09:07)
[2017-05-26] MEDS ORDERED: Lactated Ringer's 1,000 ML ONE ×2 (09:08→11:33)
[2017-05-26 09:11] LABS: BASO % 0.7 % (0.0-2.0); HEMATOCRIT 44.7 % (34.0-47.0); LYMPH # 2.3 K/uL (1.0-4.3); LYMPH % 44.8 % (20.0-40.0); MEAN CORPUSCULAR HEMOGLOBIN 32.2 pg (27.0-31.0); MEAN PLATELET VOLUME 8.1 fL (7.2-11.7); MONO # 0.2 K/uL (0.0-0.8); MONO % 3.7 % (0.0-10.0); RED CELL DISTRIBUTION WIDTH 12.6 % (11.5-14.5); WHITE BLOOD COUNT 5.1 K/uL (4.8-10.8)
[2017-05-26 09:29] LABS: RBC URINE 56 /hpf (0-3); URINE BACTERIA RARE (<OCC); URINE BILIRUBIN NEGATIVE (NEGATIVE); URINE BLOOD 3+ (NEGATIVE); URINE COLOR Yellow (YELLOW); URINE GLUCOSE (UA) NORMAL (Normal); URINE KETONE 1+ mg/dL (NEGATIVE); URINE LEUKOCYTE ESTERASE NEG Leu/uL (Negative); URINE PROTEIN 1+ mg/dL (NEGATIVE); URINE UROBILINOGEN NORMAL mg/dL (0.2-1.0); WBC URINE 7 /hpf (0-5)
[2017-05-26 09:34] LABS: ALB/GLOB RATIO 1.3 (1.0-2.1); ALKALINE PHOSPHATASE 56 U/L (38-126); ALT/SGPT 35 U/L (9-52); AST/SGOT 82 U/L (14-36); BILIRUBIN,TOTAL 1.4 mg/dL (0.2-1.3); BLOOD UREA NITROGEN 12 mg/dL (7-17); CALCIUM 8.8 mg/dl (8.6-10.4); CARBON DIOXIDE 20 mmol/L (22-30); CHLORIDE 96 mmol/L (98-107); GFR AFRICAN-AMERICAN > 60; GLUCOSE,RANDOM 131 mg/dL (65-105); POTASSIUM 4.4 mmol/L (3.6-5.2); SODIUM 138 mmol/L (132-148); TOTAL PROTEIN 8.6 g/dL (6.3-8.3)
--- NOTE | 2017-05-26 10:45 | CT ---
PROCEDURE: CT Chest with contrast (Pulmonary Angiogram) HISTORY: Worsening SOB, recent L PE COMPARISON: Plain radiographs performed the same day and CTA chest from 03/19/2017. TECHNIQUE: Axial computed tomography images were obtained of the chest in the pulmonary arterial phase of enhancement. Coronal and sagittal reformatted images were created and reviewed. Intravenous contrast dose: 100 mL Visipaque Radiation dose: Total exam DLP = 229.29 mGy-cm. This CT exam was performed using one or more of the following dose reduction techniques: Automated exposure control, adjustment of the mA and/or kV according to patient size, and/or use of iterative reconstruction technique. FINDINGS: PULMONARY ARTERIES: There are no filling defects in the pulmonary arteries to suggest acute pulmonary embolism. AORTA: No aortic dissection. No thoracic aortic aneurysm. LUNGS: The lungs are well inflated and clear. No nodule, mass or pulmonary consolidation. PLEURAL SPACES: No pleural effusions. No pneumothorax. HEART: The heart is normal in size. No pericardial effusion LYMPH NODES: No pathologic lymphadenopathy. BONES, CHEST WALL: Unremarkable. No fracture or destructive lesion OTHER FINDINGS: There is mild hepatomegaly and diffuse low-attenuation in the imaged liver. IMPRESSION: 1. No CT evidence for acute pulmonary embolism. Clear lungs. 2. Mild hepatomegaly. Diffuse low-attenuation in the imaged liver could be related to hepatic steatosis however parenchymal infectious/inflammatory/toxic etiologies cannot be entirely excluded. Clinical and laboratory correlation and follow-up is advised.
[2017-05-26 10:58] LABS: INR 1.2
[2017-05-26 13:31] LABS: ALCOHOL SERUM 45 mg/dl (0-10)
[2017-05-26] MEDS ORDERED: Lactated Ringer's 1,000 ML IV SCH (13:45)
--- NOTE | 2017-05-26 13:47 | CP.PCM.HP ---
Addendum entered and electronically signed by Richelle Rios DO 05/26/17 20:26: Will add the following assessment to problem list: Tachycardia * HRs in the 100-120s * Asymptomatic * TSH and Free T4 ordered * Continue to monitor on telemetry Original Note: <Richelle Rios - Last Filed: 05/26/17 20:24> History of Present Illness - History of Present Illness History of Present Illness: Patient is a 31 year old female with past medical history of Hypertension, gastritis, Hypertriglyceridemia, PE (diagnosed 03/2017) presents today for worseing shortness of breath and nausea/vomiting. Patient reports that she relapsed on alcohol and has been drinking 1/2 bottle of Disha daily for the past week with her friends, she also reports drinking wine. Due to the drinking , patient states that she has not been eating for the past few days. States that she has also been having nausea and NBNB vomiting for 3 days. She approximately had 5 episodes of vomiting a day. States that she hasnt been taking her Pradaxa for the past 3 days because of the vomiting. Patient was recently evaluated in the ED 3 days ago for abdominal pain, N/V. Patient was discharge home from the ED. Patient was previously admitted to the hospital in March 2017 for Acute pancreatitis. Currently admits to having RUQ pain and back pain. Denies fevers, chills, headache, dizziness, cp, palpitations, urinary symptoms, changes in bowel habits. Denies any visual or auditory hallucinations Allergies: NKDA Medications: [place] 3 fatty acid, Pradaxa 150mg BID, Lisinopril 5mg PO daily ( Please verify medications with pharmacy, per DC summary from 03/2017, patient should be on Norvasc 10mg daily, Tricor 145mg daily, Gabapentin 100mg TID) Medical History: Hypertension, gastritis, Hypertriglyceridemia, History of PE Surgical History: Denies Social History: Sister is involved in care, Velma Corado ([phone]), Lives alone. Admits to daily consumption of alcohol (2-3 beers, 3-5 shots and wine), and denies former or current use of tobacco and illicit drugs Family History: Denies [employer] Hx: LMP 05/20/17, Uses 3 pads/day, Not currently on control, Not currently sexually active Present on Admission - Present on Admission Any Indicators Present on Admission: Yes Past Patient History - Infectious Disease Hx of Infectious Diseases: None - Past Social History Smoking Status: Never Smoked - CARDIAC Hx Hypercholesterolemia: Yes Hx Hypertension: Yes - PULMONARY Hx Pulmonary Embolism: Yes (2017) - NEUROLOGICAL Hx Neurological Disorder: No - HEENT Hx HEENT Problems: No - RENAL Hx Chronic Kidney Disease: No - ENDOCRINE/METABOLIC Hx Endocrine Disorders: No - HEMATOLOGICAL/ONCOLOGICAL Hx Blood Disorders: No - INTEGUMENTARY Hx Dermatological Problems: No - MUSCULOSKELETAL/RHEUMATOLOGICAL Hx Musculoskeletal Disorders: No Hx Falls: No - GASTROINTESTINAL Hx Gastritis: Yes - GENITOURINARY/GYNECOLOGICAL Hx Genitourinary Disorders: No - PSYCHIATRIC Hx Substance Use: No - SURGICAL HISTORY Hx Surgeries: No - ANESTHESIA Hx Anesthesia: No Meds Allergies/Adverse Reactions: Allergies Allergy/AdvReac Type Severity Reaction Status Date / Time No Known Allergies Allergy Verified 05/26/17 08:07 Physical Exam - Constitutional Appears: Well, No Acute Distress - Head Exam Head Exam: ATRAUMATIC, NORMAL INSPECTION - Eye Exam Eye Exam: EOMI, Normal appearance - ENT Exam ENT Exam: Mucous Membranes Moist - Neck Exam Neck exam: Positive for: Full Rom - Respiratory Exam Respiratory Exam: Clear to Auscultation Bilateral, NORMAL BREATHING PATTERN. absent: Decreased Breath Sounds, Rales, Rhonchi, Wheezes - Cardiovascular Exam Cardiovascular Exam: Tachycardia, REGULAR RHYTHM, +S1, +S2. absent: Systolic Murmur - GI/Abdominal Exam GI & Abdominal Exam: Normal Bowel Sounds, Soft, Tenderness (mild diffuse tenderness ). absent: Distended, Firm, Rigid - Rectal Exam Rectal Exam: Deferred - Extremities Exam Extremities exam: Positive for: normal inspection, pedal pulses present - Back Exam Back exam: vertebral tenderness. absent: CVA tenderness (L), CVA tenderness (R) - Neurological Exam Neurological exam: Alert, CN II-XII Intact, Normal Gait, Oriented x3 - Psychiatric Exam Psychiatric exam: Anxious, Normal Affect - Skin Skin Exam: Dry, Normal Color, Warm Results - Vital Signs Recent Vital Signs: Last Vital Signs Temp 98.1 F 05/26/17 12:55 Pulse 127 H 05/26/17 13:00 Resp 22 05/26/17 13:00 BP 119/72 05/26/17 12:55 Pulse Ox 100 05/26/17 13:00 - Labs Result Diagrams: 05/26/17 09:00 05/26/17 09:00 Labs: Laboratory Results - last 24 hr 05/26/17 05/26/17 05/26/17 09:00 09:00 09:00 WBC 5.1 RBC 4.86 Hgb 15.6 Hct 44.7 MCV 92.0 MCH 32.2 H MCHC 35.0 RDW 12.6 Plt Count 341 MPV 8.1 Neut % (Auto) 50.8 Lymph % (Auto) 44.8 H [place] % (Auto) 3.7 Eos % (Auto) 0.0 Baso % (Auto) 0.7 Neut # 2.6 Lymph # 2.3 Canadian # 0.2 Eos # 0.0 Baso # 0.0 PT INR APTT D-Dimer, Quantitative Sodium 138 Potassium 4.4 Chloride 96 L Carbon Dioxide 20 L Anion Gap 27 H BUN 12 Creatinine 0.9 Est GFR ( Amer) > 60 Est GFR (Non-Af Amer) > 60 Random Glucose 131 H Calcium 8.8 Total Bilirubin 1.4 H AST 82 H D ALT 35 Alkaline Phosphatase 56 Troponin I < 0.0120 NT-Pro-B Natriuret Pep 11.5 Total Protein 8.6 H Albumin 4.9 Globulin 3.7 Albumin/Globulin Ratio 1.3 Lipase 409 H Urine Color Yellow Urine Clarity Hazy Urine pH 5.0 Ur Specific [place] 1.026 Urine Protein 1+ H Urine Glucose (UA) Normal Urine Ketones 1+ H Urine Blood 3+ H Urine Nitrate Negative Urine Bilirubin Negative Urine Urobilinogen Normal Ur Leukocyte Esterase Neg Urine WBC (Auto) 7 H Urine RBC (Auto) 56 H Ur Squamous Epith Cells 7 H Urine Bacteria Rare Urine HCG, Qual Negative Urine Opiates Screen Urine Methadone Screen Ur Barbiturates Screen Ur Phencyclidine Scrn Ur Amphetamines Screen U Benzodiazepines Scrn U Oth Cocaine Metabols U Cannabinoids Screen Alcohol, Quantitative 05/26/17 05/26/17 05/26/17 09:00 10:37 13:16 WBC RBC Hgb Hct MCV MCH MCHC RDW Plt Count MPV Neut % (Auto) Lymph % (Auto) [place] % (Auto) Eos % (Auto) Baso % (Auto) Neut # Lymph # [place] # Eos # Baso # PT 13.8 H INR 1.2 APTT 22 D D-Dimer, Quantitative 228 Sodium Potassium Chloride Carbon Dioxide Anion Gap BUN Creatinine Est GFR ( Amer) Est GFR (Non-Af Amer) Random Glucose Calcium Total Bilirubin AST ALT Alkaline Phosphatase Troponin I NT-Pro-B Natriuret Pep Total Protein Albumin Globulin Albumin/Globulin Ratio Lipase Urine Color Urine Clarity Urine pH Ur Specific [place] Urine Protein Urine Glucose (UA) Urine Ketones Urine Blood Urine Nitrate Urine Bilirubin Urine Urobilinogen Ur Leukocyte Esterase Urine WBC (Auto) Urine RBC (Auto) Ur Squamous Epith Cells Urine Bacteria Urine HCG, Qual Urine Opiates Screen Negative Urine Methadone Screen Negative Ur Barbiturates Screen Negative Ur Phencyclidine Scrn Negative Ur Amphetamines Screen Negative U Benzodiazepines Scrn Negative U Oth Cocaine Metabols Negative U Cannabinoids Screen Negative Alcohol, Quantitative 45 H Assessment & Plan - Assessment and Plan (Free Text) Assessment: 1. Abdominal pain, Back pain -Stable, afebrile -Patient was previously admitted for acute pancreatitis 03/2017 -Lipase elevated 409, T bili 1.4 -Lactated Ringers 100cc/hr -Diet: NPO -Zofran 4mg Q4H prn nausea -F/U abdominal US -F/U blood cx, urine cx -GI on consult, Dr Willoughby, help appreciated 2. Alcohol abuse/Alcohol withdrawal -Monitor on telemetry -Banana bag -Ativan 1mg Q4H prn withdrawal symptoms -Ativan 2mg Q2H prn seizure activity -Alcohol level on admission was 45 -UTOX was negative -CIWA protocol -Seizure precautions, Aspiration precautions -Psych consulted, help appreciated 3. History of hypertriglyceridemia -Continue omega fatty acids -F/U lipid panel 4. History of PE -Patient was diagnosed with PE in March 2017 -This was thought to be secondary to OCP use -On Pradaxa 150mg PO BID at home -CTA showed no evidence of PE, mild hepatomegaly (see full report) -Will start Lovenox 70mg Q12H 5. Menorrhagia -Urine negative -Currently on her menstrual cycle -Will order pelvic ultrasound for further evaluation 6. History of Hypertension -Lisinopril 5mg daily Prophylactic Measures -Protonix 40mg IVP daily -Lovenox 70mg Q12H <Nina Coates V - Last Filed: 05/26/17 22:36> Results - Vital Signs Recent Vital Signs: Last Vital Signs Temp 98.2 F 05/26/17 16:00 Pulse 122 H 05/26/17 16:00 Resp 20 05/26/17 16:00 BP 126/82 05/26/17 16:00 Pulse Ox 96 05/26/17 16:00 - Labs Result Diagrams: 05/26/17 09:00 05/26/17 09:00 Labs: Laboratory Results - last 24 hr 05/26/17 05/26/17 05/26/17 09:00 09:00 09:00 WBC 5.1 RBC 4.86 Hgb 15.6 Hct 44.7 MCV 92.0 MCH 32.2 H MCHC 35.0 RDW 12.6 Plt Count 341 MPV 8.1 Neut % (Auto) 50.8 Lymph % (Auto) 44.8 H [place] % (Auto) 3.7 Eos % (Auto) 0.0 Baso % (Auto) 0.7 Neut # 2.6 Lymph # 2.3 [place] # 0.2 Eos # 0.0 Baso # 0.0 PT INR APTT D-Dimer, Quantitative Sodium 138 Potassium 4.4 Chloride 96 L Carbon Dioxide 20 L Anion Gap 27 H BUN 12 Creatinine 0.9 Est GFR ( Amer) > 60 Est GFR (Non-Af Amer) > 60 Random Glucose 131 H Calcium 8.8 Total Bilirubin 1.4 H AST 82 H D ALT 35 Alkaline Phosphatase 56 Lactate Dehydrogenase Troponin I < 0.0120 NT-Pro-B Natriuret Pep 11.5 Total Protein 8.6 H Albumin 4.9 Globulin 3.7 Albumin/Globulin Ratio 1.3 Triglycerides Cholesterol LDL Cholesterol Direct HDL Cholesterol Lipase 409 H Urine Color Yellow Urine Clarity Hazy Urine pH 5.0 Ur Specific [place] 1.026 Urine Protein 1+ H Urine Glucose (UA) Normal Urine Ketones 1+ H Urine Blood 3+ H Urine Nitrate Negative Urine Bilirubin Negative Urine Urobilinogen Normal Ur Leukocyte Esterase Neg Urine WBC (Auto) 7 H Urine RBC (Auto) 56 H Ur Squamous Epith Cells 7 H Urine Bacteria Rare Urine HCG, Qual Negative Urine Opiates Screen Urine Methadone Screen Ur Barbiturates Screen Ur Phencyclidine Scrn Ur Amphetamines Screen U Benzodiazepines Scrn U Oth Cocaine Metabols U Cannabinoids Screen Alcohol, Quantitative 05/26/17 05/26/17 05/26/17 09:00 10:37 13:16 WBC RBC Hgb Hct MCV MCH MCHC RDW Plt Count MPV Neut % (Auto) Lymph % (Auto) [place] % (Auto) Eos % (Auto) Baso % (Auto) Neut # Lymph # [place] # Eos # Baso # PT 13.8 H INR 1.2 APTT 22 D D-Dimer, Quantitative 228 Sodium Potassium Chloride Carbon Dioxide Anion Gap BUN Creatinine Est GFR ( Amer) Est GFR (Non-Af Amer) Random Glucose Calcium Total Bilirubin AST ALT Alkaline Phosphatase Lactate Dehydrogenase 428 Troponin I NT-Pro-B Natriuret Pep Total Protein Albumin Globulin Albumin/Globulin Ratio Triglycerides 298 H D Cholesterol 156 LDL Cholesterol Direct 51 HDL Cholesterol 105 H Lipase Urine Color Urine Clarity Urine pH Ur Specific [place] Urine Protein Urine Glucose (UA) Urine Ketones Urine Blood Urine Nitrate Urine Bilirubin Urine Urobilinogen Ur Leukocyte Esterase Urine WBC (Auto) Urine RBC (Auto) Ur Squamous Epith Cells Urine Bacteria Urine HCG, Qual Urine Opiates Screen Negative Urine Methadone Screen Negative Ur Barbiturates Screen Negative Ur Phencyclidine Scrn Negative Ur Amphetamines Screen Negative U Benzodiazepines Scrn Negative U Oth Cocaine Metabols Negative U Cannabinoids Screen Negative Alcohol, Quantitative 45 H Attending/Attestation - Attestation I have personally seen and examined this patient.: Yes I have fully participated in the care of the patient.: Yes I have reviewed all pertinent clinical information: Yes Notes (Text): Patient seen and examined and case discussed with medical staff physician. Familiar with patient from last admission in March where in she required ICU admission for acute pancreatitis. Patient has history of both alcoholism hypertriglyceridemia and familial pattern of pancreatitis. Patient was also on Pradaxa, for history of known PE diagnosed in March secondary to OCP use. Patient comes in after relapse on alcohol use of one week. Patient reports she is hanging out with friends and drinks half a bottle [place] as well as several number of glasses of wine she is unable to quantify. Patient reports last 3 days she is felt nauseous and has been vomiting nonbloody. Patient unable to tolerate by mouth. Patient unable to tolerate diet. Patient vomitus at bedside noted gastric contents only no blood. Patient is tearful crying at bedside. Patient does acknowlege her alcohol use and abuse. Patient understands that she needs help and the support of her extended extensive family. Patient reports she has spoken with her mother and she is allowed to speak allowed me to speak with her sister Velma. Velma will come to visit patient tomorrow following her work shift. . Patient placed nothing by mouth. Patient does not fulfill Alphonso's criteria criteria is 0. Patient is placed on both Ativan when necessary's for DTs as well as for alcohol withdrawal. Patient reports she is not taking her medications over the past couple of days secondary to her condition. Patient placed on therapeutic Lovenox will transition after patient has received sufficient Lovenox and system as per up to date. Patient reports she is compliant on fatty acid. Triglycerides are improved to 200s compared to 1000 in March. Patient is off oral OCPs and is currently on her period. Patient is not aware she's had a history of fibroids or not. Will order for pelvic ultrasound. Patient with a known history of hypertension. Will continue lisinopril when tolerates PO intake.Discussed case with covering . This is not pancreatitis. other differentials include gastritis, duodenitis in light of alcohol use.l Will consider CT abdomen/pelvis tomrrow given the patient has a CT chest pe protocol by ED to rule out acute PE. Will start patient on IV fluids and when necessary's for nausea will monitor patient on telemetry and consult psych given alcohol use and suspected depression. Patient has PTSD secondary to brother's murder noted in prior admission. Assessment/Plan 1. Abdominal pain, Back pain -Monitor on telemetry -Patient was previously admitted for acute pancreatitis 03/2017 -Lipase elevated 409, T bili 1.4 -Lactated Ringers 100cc/hr -Diet: NPO -Zofran 4mg Q4H prn nausea -F/U abdominal US -F/U blood cx, urine cx -GI on consult, Dr Willoughby, help appreciated -Alphonso's criteria: 0 -possible gastritis, colitis in light of alcohol use -Will consider CT abdomen/Pelvis if patient can tolerate PO; she has completed CT angio today to r/o PE 2. Alcohol abuse/Alcohol withdrawal -Monitor on telemetry -Banana bag -Ativan 1mg Q4H prn withdrawal symptoms -Ativan 2mg Q2H prn seizure activity -Alcohol level on admission was 45 -UTOX was negative -CIWA protocol -Seizure precautions, Aspiration precautions -Psych consulted, help appreciated 3. History of hypertriglyceridemia -Continue omega fatty acids -F/U lipid panel--Elevated triglycerides improved compared to March 2017 4. History of PE -Patient was diagnosed with PE in March 2017 -This was thought to be secondary to OCP use - Start therapuetic Lovenox; will restart Pradaxa when she tolerates PO -CTA showed no evidence of PE, mild hepatomegaly (see full report) -Will start Lovenox 70mg Q12H 5. Menorrhagia -Urine negative -Currently on her menstrual cycle -Patient reports with OCPS it was controlled -Patient seens OBGYN as outpatient -Will order pelvic ultrasound for further evaluation 6. History of Hypertension - Monitor vital signs Prophylactic Measures -Protonix 40mg IVP daily -Lovenox 70mg Q12H -NPO
[2017-05-26] MEDS: Lactated Ringer's 1,000 ML IV SCH (14:51)
[2017-05-26 15:27] LABS: CHOLESTEROL 156 mg/dL (0-199)
[2017-05-26] MEDS ORDERED: Multivitamin (MVI) 10 ML, Thiamine 100 MG, Folic Acid 1 MG in Sodium Chloride 0.9% 1,00... IV ONE (16:00)
--- NOTE | 2017-05-26 16:22 | US ---
HISTORY: r/o gallstones COMPARISON: None. TECHNIQUE: Grayscale imaging was performed. FINDINGS: LIVER: Measures 17.8 cm. There is diffuse increased echogenicity of the liver parenchyma. No mass. No intrahepatic bile duct dilatation. GALLBLADDER: The gallbladder is well distended. There are no gallstones, wall thickening or pericholecystic fluid. The sonographic Solomon's sign is negative. COMMON BILE DUCT: Measures 6.3 mm. No stones. Mild diffuse dilatation dilatation. PANCREAS: Unremarkable as visualized. No mass. No ductal dilatation. RIGHT KIDNEY: Measures 10.7 cm. Normal echogenicity. No calculus, mass, or hydronephrosis. LEFT KIDNEY: Measures 10.8cm. Normal echogenicity. No calculus, mass, or hydronephrosis. SPLEEN: There is mild splenomegaly. AORTA: No aneurysmal dilatation. IVC: Unremarkable. OTHER FINDINGS: None. IMPRESSION: 1. Mild hepatomegaly. Diffuse increased echogenicity in the liver may reflect hepatic steatosis however parenchymal infectious/ inflammatory etiologies cannot be entirely excluded. Clinical and laboratory correlation is advised. 2. No cholelithiasis. Mild diffuse dilatation of the common bile duct without sonographic evidence for choledocholithiasis. 3. Mild splenomegaly.
[2017-05-26] MEDS: Enoxaparin 80 mg Syringe SC SCH (21:23)
[2017-05-27] MEDS: Lactated Ringer's 1,000 ML IV SCH ×3 (01:42→22:52)
[2017-05-27 07:41] LABS: BASO % 0.5 % (0.0-2.0); MEAN CORPUSCULAR HGB CONC 34.6 g/dL (33.0-37.0); MONO # 0.3 K/uL (0.0-0.8)
[2017-05-27 07:55] LABS: EOS % 0.2 % (0.0-4.0); HEMATOCRIT 37.1 % (34.0-47.0); LYMPH # 1.7 K/uL (1.0-4.3); LYMPH % 29.8 % (20.0-40.0); MEAN CELL VOLUME 93.3 fL (81.0-99.0); MEAN CORPUSCULAR HEMOGLOBIN 32.2 pg (27.0-31.0); MEAN PLATELET VOLUME 8.6 fL (7.2-11.7); MONO % 5.9 % (0.0-10.0); NRBC % 0.3 % (0.0-2.0); RED CELL DISTRIBUTION WIDTH 12.7 % (11.5-14.5); WHITE BLOOD COUNT 5.5 K/uL (4.8-10.8)
[2017-05-27 08:10] LABS: ALB/GLOB RATIO 1.3 (1.0-2.1); ALKALINE PHOSPHATASE 43 U/L (38-126); ALT/SGPT 31 U/L (9-52); AST/SGOT 77 U/L (14-36); BILIRUBIN,TOTAL 1.5 mg/dL (0.2-1.3); BLOOD UREA NITROGEN 9 mg/dL (7-17); CALCIUM 8.3 mg/dl (8.6-10.4); CARBON DIOXIDE 24 mmol/L (22-30); CHLORIDE 96 mmol/L (98-107); GFR AFRICAN-AMERICAN > 60; GLUCOSE,RANDOM 114 mg/dL (65-105); MAGNESIUM 1.8 mg/dL (1.6-2.3); PHOSPHOROUS 2.7 mg/dL (2.5-4.5); POTASSIUM 3.2 mmol/L (3.6-5.2); SODIUM 131 mmol/L (132-148); TOTAL PROTEIN 6.5 g/dL (6.3-8.3)
[2017-05-27 08:37] LABS: THYROID STIMULATING HORMONE 6.18 mIU/L (0.46-4.68)
[2017-05-27] MEDS: Omega-3-Acid Ethyl Esters 1 GM Cap PO SCH (09:47)
[2017-05-27] MEDS: Enoxaparin 80 mg Syringe SC SCH ×2 (09:47→21:58)
--- NOTE | 2017-05-27 10:21 | CP.PCM.PN ---
Subjective - Date & Time of Evaluation Date of Evaluation: 05/27/17 Time of Evaluation: 07:20 - Subjective Subjective: Medicine progress note for Dr. Coates Patient seen and examined at bedside. Patient reports abdominal pain that is localized deep in the epigastric region and radiates to the paraspinal regions of her thoracic and upper lumbar spine. Objective - Vital Signs/Intake and Output Vital Signs (last 24 hours): Temp Pulse Resp BP Pulse Ox 9.5 F L 92 H 18 130/90 97 05/27/17 07:58 05/27/17 08:04 05/27/17 07:58 05/27/17 07:58 05/27/17 07:58 - Medications Medications: Current Medications Enoxaparin Sodium (Lovenox) 70 mg SC Q12 [facility] Last Admin: 05/27/17 09:47 Dose: 70 mg Multivitamins/Vitamin C 10 ml/Thiamine HCl 100 mg/ Folic Acid 1 mg/ Sodium Chloride 1,011.2 mls @ 42 mls/hr IV .Q24H ONE Stop: 05/27/17 15:59 Last Admin: 05/26/17 18:06 Dose: 42 mls/hr Lactated Ringer's (Lactated Ringer's) 1,000 mls @ 100 mls/hr IV .Q10H MONIKA Stop: 05/28/17 13:45 Last Admin: 05/27/17 01:42 Dose: Not Given Ceftriaxone Sodium 1 gm/ (Sodium Chloride) 100 mls @ 100 mls/hr IVPB DAILY@ 1700 [facility] Last Admin: 05/26/17 19:16 Dose: 100 mls/hr Potassium Chloride (Potassium Chloride 20 Meq/100 Ml) 20 meq in 100 mls @ 50 mls/hr IVPB ONCE ONE Stop: 05/27/17 10:29 Last Admin: 05/27/17 09:22 Dose: 50 mls/hr Potassium Chloride (Potassium Chloride 20 Meq/100 Ml) 20 meq in 100 mls @ 50 mls/hr IVPB ONCE ONE Stop: 05/27/17 13:59 Lisinopril (Zestril) 5 mg PO DAILY [facility] Last Admin: 05/27/17 09:47 Dose: 5 mg Lorazepam (Ativan) 2 mg IVP Q2H PRN PRN Reason: Seizure activity Last Admin: 05/26/17 14:18 Dose: 2 mg Lorazepam (Ativan) 1 mg IVP Q4H PRN PRN Reason: Symptoms of alcohol withdrawl [id number] Ethyl Esters (Lovaza) 1 gm PO DAILY [facility] Last Admin: 05/27/17 09:47 Dose: 1 gm Ondansetron HCl (Zofran Inj) 4 mg IVP Q4H PRN PRN Reason: Nausea/Vomiting Pantoprazole Sodium (Protonix Inj) 40 mg IVP DAILY [facility] Last Admin: 05/27/17 09:47 Dose: 40 mg - Labs Labs: 05/27/17 07:18 05/27/17 07:18 PT 13.8 SECONDS (9.7-12.2) H 05/26/17 10:37 INR 1.2 05/26/17 10:37 APTT 22 SECONDS (21-34) D 05/26/17 10:37 - Constitutional Appears: No Acute Distress - Head Exam Head Exam: ATRAUMATIC, NORMOCEPHALIC - Eye Exam Eye Exam: EOMI, Normal appearance - ENT Exam ENT Exam: Mucous Membranes Moist - Respiratory Exam Respiratory Exam: Clear to Ausculation Bilateral, NORMAL BREATHING PATTERN. absent: Rales, Rhonchi, Wheezes - Cardiovascular Exam Cardiovascular Exam: Tachycardia, +S1, +S2 - GI/Abdominal Exam GI & Abdominal Exam: Soft, Tenderness, Normal Bowel Sounds. absent: Distended, Guarding - Back Exam Back Exam: paraspinal tenderness (lower thoracic and upper lumbar region) - Neurological Exam Neurological Exam: Alert, Awake, Oriented x3 - Psychiatric Exam Psychiatric exam: Normal Affect, Normal Mood - Skin Skin Exam: Dry, Intact, Normal Color, Warm Assessment and Plan - Assessment and Plan (Free Text) Plan: 1. Abdominal pain, Back pain -Stable, afebrile -Patient was previously admitted for acute pancreatitis 03/2017 -Lipase elevated 409, T bili 1.4 -Lactated Ringers 100cc/hr -Diet: NPO -Zofran 4mg Q4H prn nausea -Morphine 1 mg IV Q4 prn pain -Abdominal US shows mild hepatomegaly, hepatic steatosis vs parenchymal infectious/inflammatory etiologies cannot be excluded. No cholelithiasis. Mild diffuse dilatation of the CBD without evidence of choledocolithiasis. -F/U blood cx, urine cx -GI on consult, Dr Willoughby, help appreciated F/u CT abdomen/pelvis w. PO contrast 2. Alcohol abuse/Alcohol withdrawal -Monitor on telemetry -Banana bag -Ativan 1mg Q4H prn withdrawal symptoms -Ativan 2mg Q2H prn seizure activity -Alcohol level on admission was 45 -UTOX was negative -CIWA protocol -Seizure precautions, Aspiration precautions -Psych consulted, help appreciated 3. History of hypertriglyceridemia -Continue omega fatty acids -Lipid panel reveals triglycerides at 298 4. History of PE -Patient was diagnosed with PE in March 2017 -This was thought to be secondary to OCP use -On Pradaxa 150mg PO BID at home -CTA showed no evidence of PE, mild hepatomegaly (see full report) -Therapeutic Lovenox 70mg Q12H 5. Menorrhagia -Urine negative -Currently on her menstrual cycle -Will order pelvic ultrasound for further evaluation 6. History of Hypertension -Lisinopril 5mg daily Prophylactic Measures -Protonix 40mg IVP daily -Lovenox 70mg Q12H Patient requested and gave permission for me to speak with her sister Trevor Corado ([phone]). The sister was updated with the patient's current status as of early this morning. Case DW Dr. Jaxon Cee PGY-1
--- NOTE | 2017-05-27 10:39 | CP.PCM.CON ---
History of Present Illness - History of Present Illness History of Present Illness: I was asked to see pt for GI service consult for abdom pain. I was told wasa not urent consult. PMH: ETOH, PE, recent admission 2 mo ago- ICU- pancreatitis/PE, HTN,. Now reporting weakness back pain, SOB, tachycardia. Reports mild epig pain. SH: Drinks etoh. PAst records reviewed. Pt was seen now with DANITA Paez present. Review of Systems - Constitutional Constitutional: Fatigue, Weakness. absent: Chills - EENT Eyes: absent: Diplopia, Photophobia Nose/Mouth/Throat: absent: Throat Swelling - Cardiovascular Cardiovascular: Dyspnea, Rapid Heart Rate - Respiratory Respiratory: Dyspnea. absent: Wheezing - Gastrointestinal Gastrointestinal: Abdominal Pain. absent: Coffee Ground Emesis, Constipation, Diarrhea, Dysphagia, Hematemesis, Hematochezia, Melena, Nausea - Genitourinary Genitourinary: absent: Hematuria - Musculoskeletal Musculoskeletal: absent: Muscle Cramps, Muscle Weakness - Integumentary Integumentary: absent: Pruritus, Rash - Neurological Neurological: absent: Convulsions - Psychiatric Psychiatric: absent: Hallucinations Past Patient History - Infectious Disease Hx of Infectious Diseases: None - Past Social History Smoking Status: Never Smoked - CARDIAC Hx Hypercholesterolemia: Yes Hx Hypertension: Yes - PULMONARY Hx Pulmonary Embolism: Yes (2016) - NEUROLOGICAL Hx Neurological Disorder: No - HEENT Hx HEENT Problems: No - RENAL Hx Chronic Kidney Disease: No - ENDOCRINE/METABOLIC Hx Endocrine Disorders: No - HEMATOLOGICAL/ONCOLOGICAL Hx Blood Disorders: No - INTEGUMENTARY Hx Dermatological Problems: No - MUSCULOSKELETAL/RHEUMATOLOGICAL Hx Musculoskeletal Disorders: No Hx Falls: No - GASTROINTESTINAL Hx Gastritis: Yes - GENITOURINARY/GYNECOLOGICAL Hx Genitourinary Disorders: No - PSYCHIATRIC Hx Substance Use: No - SURGICAL HISTORY Hx Surgeries: No - ANESTHESIA Hx Anesthesia: No Meds Allergies/Adverse Reactions: Allergies Allergy/AdvReac Type Severity Reaction Status Date / Time No Known Allergies Allergy Verified 05/26/17 08:07 - Medications Medications: Current Medications Enoxaparin Sodium (Lovenox) 70 mg SC Q12 [facility] Last Admin: 05/27/17 09:47 Dose: 70 mg Multivitamins/Vitamin C 10 ml/Thiamine HCl 100 mg/ Folic Acid 1 mg/ Sodium Chloride 1,011.2 mls @ 42 mls/hr IV .Q24H ONE Stop: 05/27/17 15:59 Last Admin: 05/26/17 18:06 Dose: 42 mls/hr Lactated Ringer's (Lactated Ringer's) 1,000 mls @ 100 mls/hr IV .Q10H [facility] Stop: 05/28/17 13:45 Last Admin: 05/27/17 01:42 Dose: Not Given Ceftriaxone Sodium 1 gm/ (Sodium Chloride) 100 mls @ 100 mls/hr IVPB DAILY@ 1700 [facility] Last Admin: 05/26/17 19:16 Dose: 100 mls/hr Potassium Chloride (Potassium Chloride 20 Meq/100 Ml) 20 meq in 100 mls @ 50 mls/hr IVPB ONCE ONE Stop: 05/27/17 13:59 Lisinopril (Zestril) 5 mg PO DAILY [facility] Last Admin: 05/27/17 09:47 Dose: 5 mg Lorazepam (Ativan) 2 mg IVP Q2H PRN PRN Reason: Seizure activity Last Admin: 05/26/17 14:18 Dose: 2 mg Lorazepam (Ativan) 1 mg IVP Q4H PRN PRN Reason: Symptoms of alcohol withdrawl Yytha-3-[id number] Ethyl Esters (Lovaza) 1 gm PO DAILY [facility] Last Admin: 05/27/17 09:47 Dose: 1 gm Ondansetron HCl (Zofran Inj) 4 mg IVP Q4H PRN PRN Reason: Nausea/Vomiting Pantoprazole Sodium (Protonix Inj) 40 mg IVP DAILY [facility] Last Admin: 05/27/17 09:47 Dose: 40 mg Physical Exam - Constitutional Appears: Well - Neck Exam Neck exam: Negative for: Tenderness - Respiratory Exam Respiratory Exam: Clear to Auscultation Bilateral - Cardiovascular Exam Cardiovascular Exam: RRR - GI/Abdominal Exam GI & Abdominal Exam: Normal Bowel Sounds, Soft. absent: Guarding, Mass, Rebound , Rigid, Tenderness - Extremities Exam Extremities exam: Negative for: pedal edema - Neurological Exam Neurological exam: Alert, Oriented x3 - Psychiatric Exam Psychiatric exam: Depressed Results - Vital Signs Recent Vital Signs: Last Vital Signs Temp 9.5 F L 05/27/17 07:58 Pulse 92 H 05/27/17 08:04 Resp 18 05/27/17 07:58 BP 130/90 05/27/17 07:58 Pulse Ox 97 05/27/17 07:58 - Labs Result Diagrams: 05/27/17 07:18 05/27/17 07:18 Labs: Laboratory Results - last 24 hr 05/26/17 05/26/17 05/26/17 09:00 10:37 13:16 WBC RBC Hgb Hct MCV MCH MCHC RDW Plt Count MPV Neut % (Auto) Lymph % (Auto) Wayne % (Auto) Eos % (Auto) Baso % (Auto) Neut # Lymph # Wayne # Eos # Baso # PT 13.8 H INR 1.2 APTT 22 D D-Dimer, Quantitative 228 Sodium 138 Potassium 4.4 Chloride 96 L Carbon Dioxide 20 L Anion Gap 27 H BUN 12 Creatinine 0.9 Est GFR ( Amer) > 60 Est GFR (Non-Af Amer) > 60 Random Glucose 131 H Calcium 8.8 Phosphorus Magnesium Total Bilirubin 1.4 H AST 82 H D ALT 35 Alkaline Phosphatase 56 Lactate Dehydrogenase 428 Troponin I < 0.0120 NT-Pro-B Natriuret Pep 11.5 Total Protein 8.6 H Albumin 4.9 Globulin 3.7 Albumin/Globulin Ratio 1.3 Triglycerides 298 H D Cholesterol 156 LDL Cholesterol Direct 51 HDL Cholesterol 105 H Lipase 409 H Free T4 TSH 3rd Generation Alcohol, Quantitative 45 H 05/27/17 05/27/17 05/27/17 07:18 07:18 07:18 WBC 5.5 RBC 3.98 Hgb 12.8 D Hct 37.1 MCV 93.3 MCH 32.2 H MCHC 34.6 RDW 12.7 Plt Count 234 D MPV 8.6 Neut % (Auto) 63.6 Lymph % (Auto) 29.8 Wayne % (Auto) 5.9 Eos % (Auto) 0.2 Baso % (Auto) 0.5 Neut # 3.5 Lymph # 1.7 Wayne # 0.3 Eos # 0.0 Baso # 0.0 PT INR APTT D-Dimer, Quantitative Sodium 131 L Potassium 3.2 L Chloride 96 L Carbon Dioxide 24 Anion Gap 13 BUN 9 Creatinine 0.8 Est GFR ( Amer) > 60 Est GFR (Non-Af Amer) > 60 Random Glucose 114 H Calcium 8.3 L Phosphorus 2.7 Magnesium 1.8 Total Bilirubin 1.5 H AST 77 H ALT 31 Alkaline Phosphatase 43 Lactate Dehydrogenase Troponin I NT-Pro-B Natriuret Pep Total Protein 6.5 Albumin 3.7 Globulin 2.8 Albumin/Globulin Ratio 1.3 Triglycerides Cholesterol LDL Cholesterol Direct HDL Cholesterol Lipase Free T4 1.33 TSH 3rd Generation 6.18 H Alcohol, Quantitative Assessment & Plan (1) Shortness of breath Status: Acute (2) Vomiting Status: Acute (3) Abdominal pain Assessment and Plan: Mild. Pain is more in back. Consider pancreatitis, but lipase is only mild, and epig pain is not severe. She was on high IV fluids on admission. Likely gastritis, and alcohol gastritis. REC: PPI, repeat lipase, LFTs Status: Acute (4) Gastritis Status: Acute (5) Pancreatitis Assessment and Plan: Mild lipase./+ etoh Status: Acute (6) Pulmonary embolism Status: Acute (7) High triglycerides Assessment and Plan: Treat with meds. Status: Chronic (8) Hypertension Status: Chronic (9) Bilirubinemia Assessment and Plan: Alcohol use. Status: Acute
[2017-05-27] MEDS ORDERED: Iohexol 240 (50 ml) PO ONE (12:30)
--- NOTE | 2017-05-27 14:47 | CP.PCM.PN ---
Subjective - Date & Time of Evaluation Date of Evaluation: 05/27/17 Time of Evaluation: 14:40 - Subjective Subjective: Patient seen, examined, and case discussed with day-time resident. Patient seen this afternoon. patient reports she feels hungry. She does not feel nauseous and has not vomitting. Patient reports pain is in her back mainly which is worsened compared to yesterday. Patient denies chest pain, denies cough , denies dysuria. denies frequency, reports menorrhagia. Objective - Vital Signs/Intake and Output Vital Signs (last 24 hours): Temp Pulse Resp BP Pulse Ox 9.5 F L 92 H 18 130/90 97 05/27/17 07:58 05/27/17 08:04 05/27/17 07:58 05/27/17 07:58 05/27/17 07:58 - Medications Medications: Current Medications Enoxaparin Sodium (Lovenox) 70 mg SC Q12 [facility] Last Admin: 05/27/17 09:47 Dose: 70 mg Multivitamins/Vitamin C 10 ml/Thiamine HCl 100 mg/ Folic Acid 1 mg/ Sodium Chloride 1,011.2 mls @ 42 mls/hr IV .Q24H [facility] Stop: 05/27/17 15:59 Last Admin: 05/26/17 18:06 Dose: 42 mls/hr Lactated Ringer's (Lactated Ringer's) 1,000 mls @ 100 mls/hr IV .Q10H [facility] Stop: 05/28/17 13:45 Last Admin: 05/27/17 01:42 Dose: Not Given Ceftriaxone Sodium 1 gm/ (Sodium Chloride) 100 mls @ 100 mls/hr IVPB DAILY@ 1700 [facility] Last Admin: 05/26/17 19:16 Dose: 100 mls/hr Lisinopril (Zestril) 5 mg PO DAILY [facility] Last Admin: 05/27/17 09:47 Dose: 5 mg Lorazepam (Ativan) 2 mg IVP Q2H PRN PRN Reason: Seizure activity Last Admin: 05/26/17 14:18 Dose: 2 mg Lorazepam (Ativan) 1 mg IVP Q4H PRN PRN Reason: Symptoms of alcohol withdrawl [id number] Ethyl Esters (Lovaza) 1 gm PO DAILY [facility] Last Admin: 05/27/17 09:47 Dose: 1 gm Ondansetron HCl (Zofran Inj) 4 mg IVP Q4H PRN PRN Reason: Nausea/Vomiting Pantoprazole Sodium (Protonix Inj) 40 mg IVP DAILY [facility] Last Admin: 05/27/17 09:47 Dose: 40 mg - Labs Labs: 05/27/17 07:18 05/27/17 07:18 PT 13.8 SECONDS (9.7-12.2) H 05/26/17 10:37 INR 1.2 05/26/17 10:37 APTT 22 SECONDS (21-34) D 05/26/17 10:37 - Constitutional Appears: Non-toxic, No Acute Distress - Head Exam Head Exam: NORMAL INSPECTION - Eye Exam Eye Exam: EOMI - ENT Exam ENT Exam: Mucous Membranes Moist - Respiratory Exam Respiratory Exam: Clear to Ausculation Bilateral, NORMAL BREATHING PATTERN. absent: Rales, Rhonchi - Cardiovascular Exam Cardiovascular Exam: Tachycardia, +S1, +S2. absent: REGULAR RHYTHM - GI/Abdominal Exam GI & Abdominal Exam: Soft, Normal Bowel Sounds. absent: Distended, Firm, Guarding, Rigid, Tenderness, Rebound Additional comments: +suprapubic tenderness - Extremities Exam Extremities Exam: absent: Pedal Edema, Tenderness - Back Exam Back Exam: CVA tenderness (L), CVA tenderness (R). absent: rash noted, vertebral tenderness - Neurological Exam Neurological Exam: Alert, Awake, Oriented x3 - Psychiatric Exam Psychiatric exam: Normal Affect, Normal Mood - Skin Skin Exam: Dry, Intact, Normal Color, Warm Assessment and Plan - Assessment and Plan (Free Text) Assessment: Patient seen, examined, and case discussed with day-time resident. Patient seen this afternoon. Patient reports she would like to eat today. patient reports improved abdominal pain compared to yesterday. patient has not thrown up today. Patient has increased back pain bilateral and on my exam, positive +suprapubic tenderness. Patient is open to help for her alcoholism. Patient ordered for CT scan Abdomen/Pelvis PO contrast. Lovenox held will restart when CT scan is read. Electrolytes repleted. Will order urine lytes prior to concluding this hyponatremia is secondary to pain. Pending cultures. Patient seen and evaluated by GI and case discussed with GI. Assessment/Plan 1. Abdominal pain, Back pain * Monitor on telemetry * Patient was previously admitted for acute pancreatitis 03/2017 * Lipase elevated 409, T bili 1.4 * Lactated Ringers 100cc/hr * Diet: NPO * Zofran 4mg Q6H prn nausea * Order for CT scan PO scan * Abdominal US (05/26/17): mild hepatomelagy. Diffuse increased echogencity in the liver may reflect hepatic steatosis however parenchymal infectious/ inflammatory etiologies cannot be entirely excluded. No cholelithiasis. Mild diffuse dilatation of the common bild duct without sonographic evidence of choledocholithiasis. Mild Splenomegay. * F/U blood cx, urine cx * GI on consult, Dr Willoughby, help appreciated * Alphonso's criteria: 0 * possible gastritis, colitis in light of alcohol use * Will consider CT abdomen/Pelvis if patient can tolerate PO; she has completed CT angio today to r/o PE 2. Alcohol abuse/Alcohol withdrawal * Monitor on telemetry * Banana bag * Ativan 1mg Q4H prn withdrawal symptoms * Ativan 2mg Q2H prn seizure activity * Alcohol level on admission was 45 * UTOX was negative * CIWA protocol * Seizure precautions, Aspiration precautions * Psych consulted, help appreciated 3. Abnormal UA, Suprapubic Tenderness, Flank Pain * Pending urine culture * Rocephin 1 gram IV q daily * pending CT Abdomen/Pelvis 4. Hypokalemia * replete potassium * Note patient was throwing up; which is improved 5. Hyponatremia * lConsider for possible SIADH * f/u urine lytes 6. History of hypertriglyceridemia * Continue omega fatty acids * F/U lipid panel--Elevated triglycerides improved compared to March 2017 7. History of PE * Patient was diagnosed with PE in March 2017 * This was thought to be secondary to OCP use * Start therapuetic Lovenox; will restart Pradaxa when she tolerates PO * CTA showed no evidence of PE, mild hepatomegaly (see full report) * Hold Lovenox until patient completes CT Abdomen/Pelvis 8. Menorrhagia * Urine negative * Currently on her menstrual cycle * Patient reports with [facility] it was controlled * Patient seens OBGYN as outpatient * Will order pelvic ultrasound for further evaluation 9. History of Hypertension * Monitor vital signs 10. Prophylactic Measures * Protonix 40mg IVP daily * hold Lovenox 70mg Q12H until CT scan is done * NPO
--- NOTE | 2017-05-27 15:58 | CT ---
PROCEDURE: CT Abdomen and Pelvis with contrast HISTORY: r/o colitis, pyelonephritis COMPARISON: None TECHNIQUE: CT scan of the abdomen and pelvis was performed without administration of intravenous contrast. Oral contrast was administered. Coronal and sagittal reformatted images were obtained. Radiation dose: Total exam DLP = 414.11 mGy-cm. This CT exam was performed using one or more of the following dose reduction techniques: Automated exposure control, adjustment of the mA and/or kV according to patient size, and/or use of iterative reconstruction technique. FINDINGS: LOWER THORAX: The lung bases are clear. LIVER: There is moderate hepatomegaly and diffuse fatty infiltration in the liver. No gross lesion or ductal dilatation. GALLBLADDER AND BILE DUCTS: There are no calcified gallstones. There is layering gallbladder sludge. . PANCREAS: The pancreas is normal in size. The pancreatic margins are indistinct and there are significant peripancreatic inflammatory changes extending to the left upper quadrant and retroperitoneum. There is also fluid in the left upper quadrant, the left perinephric space and left pericolic gutter. No intraductal dilatation, calcifications or pseudocyst. SPLEEN: Normal in size. ADRENALS: No discrete nodule. KIDNEYS AND URETERS: Normal in size without hydronephrosis or nephrolithiasis. VASCULATURE: No aortic aneurysm. BOWEL: The small bowel loops are normal in caliber. The colon is unremarkable. APPENDIX: Normal appendix. PERITONEUM: No free air. LYMPH NODES: No enlarged lymph nodes. BLADDER: Normal in appearance. REPRODUCTIVE: The uterus is BONES: No acute fracture. Normal in size. OTHER FINDINGS: None. IMPRESSION: 1. Acute pancreatitis. 2. No evidence of for nephrolithiasis or hydronephrosis. 3. No evidence of colitis or bowel obstruction. 4. Moderate hepatomegaly and fatty liver.
[2017-05-27 16:11] VITALS: RESP 20
[2017-05-28] MEDS ORDERED: DiphenhydrAMINE 50 mg/ml Inj IVP STA (03:25)
[2017-05-28] MEDS: Lactated Ringer's 1,000 ML IV SCH ×3 (06:19→17:04)
[2017-05-28 07:33] LABS: BASO % 0.3 % (0.0-2.0); EOS % 0.8 % (0.0-4.0); HEMATOCRIT 34.2 % (34.0-47.0); LYMPH # 1.6 K/uL (1.0-4.3); LYMPH % 32.9 % (20.0-40.0); MEAN CELL VOLUME 93.6 fL (81.0-99.0); MEAN CORPUSCULAR HEMOGLOBIN 32.6 pg (27.0-31.0); MEAN CORPUSCULAR HGB CONC 34.8 g/dL (33.0-37.0); MEAN PLATELET VOLUME 8.9 fL (7.2-11.7); MONO # 0.2 K/uL (0.0-0.8); MONO % 4.3 % (0.0-10.0); NRBC % 0.3 % (0.0-2.0); RED CELL DISTRIBUTION WIDTH 12.3 % (11.5-14.5); WHITE BLOOD COUNT 4.9 K/uL (4.8-10.8)
--- NOTE | 2017-05-28 07:51 | CP.PCM.PN ---
<Richelle Rios - Last Filed: 05/28/17 16:32> Subjective - Date & Time of Evaluation Date of Evaluation: 05/28/17 Time of Evaluation: 07:51 - Subjective Subjective: Medicine Progress Note: Hospitalist Service Patient seen and examined at bedside. Per nursing no acute events overnight. Patient stated that epigastric pain has improved, still having back pain. Not tremulous. Also states that she is hungry and has not vomiting since admission. Denies headaches, dizziness, cp, palpitations, sob, abdominal pain, urinary symptoms, changes in bowel habits, visual/auditory hallucinations. Objective - Vital Signs/Intake and Output Vital Signs (last 24 hours): Temp Pulse Resp BP Pulse Ox 98.4 F 92 H 20 122/86 100 05/28/17 04:10 05/28/17 04:13 05/28/17 04:10 05/28/17 04:10 05/28/17 04:10 Intake and Output: 05/28/17 05/28/17 06:59 18:59 Intake Total 2170 Balance 2170 - Medications Medications: Current Medications Enoxaparin Sodium (Lovenox) 70 mg SC Q12 [facility] Last Admin: 05/27/17 21:58 Dose: 70 mg Ceftriaxone Sodium 1 gm/ (Sodium Chloride) 100 mls @ 100 mls/hr IVPB DAILY@ 1700 [facility] Last Admin: 05/27/17 16:59 Dose: 100 mls/hr Lactated Ringer's (Lactated Ringer's) 1,000 mls @ 150 mls/hr IV .Q6H40M [facility] Stop: 05/28/17 13:45 Last Admin: 05/28/17 06:19 Dose: 150 mls/hr Lisinopril (Zestril) 5 mg PO DAILY [facility] Last Admin: 05/27/17 09:47 Dose: 5 mg Lorazepam (Ativan) 2 mg IVP Q2H PRN PRN Reason: Seizure activity Last Admin: 05/26/17 14:18 Dose: 2 mg Lorazepam (Ativan) 1 mg IVP Q4H PRN PRN Reason: Symptoms of alcohol withdrawl Morphine Sulfate (Morphine) 2 mg IVP Q4 PRN PRN Reason: Pain, moderate (4-7) Last Admin: 05/28/17 00:28 Dose: 2 mg Nfaxt-8-Ipzi Ethyl Esters (Lovaza) 1 gm PO DAILY [facility] Last Admin: 05/27/17 09:47 Dose: 1 gm Ondansetron HCl (Zofran Inj) 4 mg IVP Q4H PRN PRN Reason: Nausea/Vomiting Pantoprazole Sodium (Protonix Inj) 40 mg IVP DAILY [facility] Last Admin: 05/27/17 09:47 Dose: 40 mg Saccharomyces Boulardii (Florastor) 250 mg PO BID [facility] - Labs Labs: 05/28/17 07:17 05/27/17 07:18 PT 13.8 SECONDS (9.7-12.2) H 05/26/17 10:37 INR 1.2 05/26/17 10:37 APTT 22 SECONDS (21-34) D 05/26/17 10:37 - Constitutional Appears: Well, No Acute Distress - Head Exam Head Exam: ATRAUMATIC, NORMAL INSPECTION - Eye Exam Eye Exam: EOMI, Normal appearance - ENT Exam ENT Exam: Mucous Membranes Moist - Respiratory Exam Respiratory Exam: Clear to Ausculation Bilateral, NORMAL BREATHING PATTERN. absent: Rales, Rhonchi, Wheezes - Cardiovascular Exam Cardiovascular Exam: REGULAR RHYTHM, +S1, +S2. absent: Murmur - GI/Abdominal Exam GI & Abdominal Exam: Soft, Normal Bowel Sounds. absent: Guarding, Rigid, Tenderness - Rectal Exam Rectal Exam: Deferred - Extremities Exam Extremities Exam: Full ROM, Normal Inspection. absent: Calf Tenderness - Neurological Exam Neurological Exam: Alert, Awake, CN II-XII Intact, Oriented x3 - Psychiatric Exam Psychiatric exam: Normal Affect, Normal Mood - Skin Skin Exam: Dry, Normal Color, Warm Assessment and Plan - Assessment and Plan (Free Text) Assessment: 1. Acute Pancreatitis * Monitor on telemetry * Patient was previously admitted for acute pancreatitis 03/2017 * Lipase elevated 409 on admission, trended up to 7476, will continue to trend * Per GI, will advance diet to clear liquids * Continue Lactated Ringers 150cc/hr * Zofran 4mg Q6H prn nausea * Toradol prn pain (avoid opioids) * CT abd/pelvis: acute pancreatitis, no evidence for nephrolithiasis or hydronephrosis, moderate hepatomegaly and fatty liver (see full report) * Abdominal US (05/26/17): mild hepatomelagy. Diffuse increased echogencity in the liver may reflect hepatic steatosis however parenchymal infectious/ inflammatory etiologies cannot be entirely excluded. No cholelithiasis. Mild diffuse dilatation of the common bild duct without sonographic evidence of choledocholithiasis. Mild Splenomegay. * Blood cx showing no growth for 24 hours * GI on consult, Dr Frank, help appreciated * Alphonso's criteria: 0 2. Alcohol abuse/Alcohol withdrawal * Monitor on telemetry * Started PO Folic acid, Thiamine, and Multivitamins * Ativan 1mg Q4H prn withdrawal symptoms * Ativan 2mg Q2H prn seizure activity * Alcohol level on admission was 45 * UTOX was negative * CIWA protocol * Seizure precautions, Aspiration precautions * Psych consulted, help appreciated 3. Abnormal UA, Suprapubic Tenderness, Flank Pain * Pending urine culture * Will discontinue Rocephin and Florastor as patient is not symptomatic * CT Abdomen/Pelvis: acute pancreatitis, no evidence for nephrolithiasis or hydronephrosis, moderate hepatomegaly and fatty liver (see full report) 4. Hypokalemia * Replete potassium * Note patient was throwing up; which is improved 5. Hyponatremia * Improving * Consider for possible SIADH * f/u urine lytes 6. History of hypertriglyceridemia * Continue omega fatty acids * Elevated triglycerides improved compared to March 2017 7. History of PE * Patient was diagnosed with PE in March 2017 * This was thought to be secondary to OCP use * Will restart Pradaxa 150mg PO BID * CTA showed no evidence of PE, mild hepatomegaly (see full report) 8. Menorrhagia * Urine negative * Currently on her menstrual cycle * Patient reports with [facility] it was controlled * Patient seens OBGYN as outpatient * Will order pelvic ultrasound for further evaluation 9. History of Hypertension * Monitor vital signs * Continue Lisinopril 5mg PO daily 10. Prophylactic Measures * Protonix 40mg IVP daily * Pradaxa 150mg BID <Marlon Marquez - Last Filed: 05/28/17 19:09> Objective - Vital Signs/Intake and Output Vital Signs (last 24 hours): Temp Pulse Resp BP Pulse Ox 98.6 F 101 H 20 103/76 96 05/28/17 15:39 05/28/17 18:44 05/28/17 15:39 05/28/17 15:39 05/28/17 15:39 Intake and Output: 05/28/17 05/29/17 18:59 06:59 Intake Total 1950 Balance 1950 - Medications Medications: Current Medications Dabigatran (Pradaxa) 150 mg PO BID [facility] Last Admin: 05/28/17 17:57 Dose: 150 mg Folic Acid (Folic Acid) 1 mg PO DAILY [facility] Last Admin: 05/28/17 10:05 Dose: 1 mg Lactated Ringer's (Lactated Ringer's) 1,000 mls @ 150 mls/hr IV .Q6H40M [facility] Last Admin: 05/28/17 17:04 Dose: 150 mls/hr Ketorolac Tromethamine (Toradol) 15 mg IVP Q6 PRN PRN Reason: Pain, moderate (4-7) Ketorolac Tromethamine (Toradol) 30 mg IVP Q6 PRN PRN Reason: Pain, severe (8-10) Last Admin: 05/28/17 15:55 Dose: 30 mg Lisinopril (Zestril) 5 mg PO DAILY [facility] Last Admin: 05/28/17 10:05 Dose: 5 mg Lorazepam (Ativan) 2 mg IVP Q2H PRN PRN Reason: Seizure activity Last Admin: 05/26/17 14:18 Dose: 2 mg Lorazepam (Ativan) 1 mg IVP Q4H PRN PRN Reason: Symptoms of alcohol withdrawl Multivitamins (Hexavitamin) 1 tab PO DAILY [facility] Last Admin: 05/28/17 10:05 Dose: 1 tab Ihubs-4-Mcad Ethyl Esters (Lovaza) 1 gm PO DAILY [facility] Last Admin: 05/28/17 10:05 Dose: 1 gm Ondansetron HCl (Zofran Inj) 4 mg IVP Q4H PRN PRN Reason: Nausea/Vomiting Pantoprazole Sodium (Protonix Inj) 40 mg IVP DAILY [facility] Last Admin: 05/28/17 10:05 Dose: 40 mg Thiamine HCl (Vitamin B1 Tab) 100 mg PO DAILY [facility] Last Admin: 05/28/17 10:05 Dose: 100 mg - Labs Labs: 05/28/17 07:17 05/28/17 07:17 PT 13.8 SECONDS (9.7-12.2) H 05/26/17 10:37 INR 1.2 05/26/17 10:37 APTT 22 SECONDS (21-34) D 05/26/17 10:37 Attending/Attestation - Attestation I have personally seen and examined this patient.: Yes I have fully participated in the care of the patient.: Yes I have reviewed all pertinent clinical information, including history, physical exam and plan: Yes Notes (Text): 05/28/17 19:01 Hospitalist Progress Note Patient was seen and examined at 10:00 AM 05/28/17 556 B Exam, assessment and plan were thoroughly gone over with the resident Also on ROS: Soreness in the epigastric area NO SOB/Dyspnea NO more back pain NO more N/V Has not eaten in 3 days and is currently hungry Moved her bowels today and it was watery clear NO other complaints upon FULL ROS Also on Exam: GI: BSx4, soft, ND, (+) Epigastric tenderness to deep palpation but NO guarding/ rebound tenderness Resp: CTA B/L, NO R/R/W Cardio: NS1 and NS2, NO M/R/G Ext: NO edema, Pulses are strong and equal, Capillary refill is 2 seconds Assessments: 1). Acute Pancreatitis: advance diet as tolerated, continue IVF 2). Episodic Alcohol Abuse: F/U Psychiatry Evaluation 3). Abnormal UA: F/U Urine Culture, she is asymptomatic 4). Hypokalemia 5). Hyponatremia 6). Hx Hypertriglyceridemia 7). Hx PE: discontinue therapeutic Lovenox and restart Pradaxa 8). Hx Menorrhagia: she will need outpatient [employer] Officer evaluation through [facility] 9). Hx HTN Patient started on Clear liquids and she has tolerated this. She was asking for more food in the evening and she was advanced to soft. For breakfast we will advance to FULL if she tolerates this and if she continues to improve then we will discharge in the afternoon 05/29/17. Marlon Marquez D.O.
[2017-05-28] MEDS ORDERED: Potassium Chloride 20 mEq ER Tab PO SCH (08:00)
--- NOTE | 2017-05-28 08:25 | CP.PCM.PN ---
Subjective - Date & Time of Evaluation Date of Evaluation: 05/28/17 Time of Evaluation: 08:15 - Subjective Subjective: F/U pancreatitis. Pt reports less epig pain and less back pain. Reports feeling better. Feels hungry- wants to eat. Denies RB, melena, CP, SOB, fever, CANNON, cough, SZ, hematuria, hemoptysis, rash Objective - Vital Signs/Intake and Output Vital Signs (last 24 hours): Temp Pulse Resp BP Pulse Ox 98.1 F 96 H 20 122/85 100 05/28/17 07:52 05/28/17 07:52 05/28/17 07:52 05/28/17 07:52 05/28/17 07:52 Intake and Output: 05/28/17 05/28/17 06:59 18:59 Intake Total 2170 Balance 2170 - Medications Medications: Current Medications Enoxaparin Sodium (Lovenox) 70 mg SC Q12 [facility] Last Admin: 05/27/17 21:58 Dose: 70 mg Ceftriaxone Sodium 1 gm/ (Sodium Chloride) 100 mls @ 100 mls/hr IVPB DAILY@ 1700 [facility] Last Admin: 05/27/17 16:59 Dose: 100 mls/hr Lactated Ringer's (Lactated Ringer's) 1,000 mls @ 150 mls/hr IV .Q6H40M [facility] Stop: 05/28/17 13:45 Last Admin: 05/28/17 06:19 Dose: 150 mls/hr Ketorolac Tromethamine (Toradol) 15 mg IVP Q6 PRN PRN Reason: Pain, moderate (4-7) Ketorolac Tromethamine (Toradol) 30 mg IVP Q6 PRN PRN Reason: Pain, severe (8-10) Lisinopril (Zestril) 5 mg PO DAILY [facility] Last Admin: 05/27/17 09:47 Dose: 5 mg Lorazepam (Ativan) 2 mg IVP Q2H PRN PRN Reason: Seizure activity Last Admin: 05/26/17 14:18 Dose: 2 mg Lorazepam (Ativan) 1 mg IVP Q4H PRN PRN Reason: Symptoms of alcohol withdrawl Joxzu-8-Ryoj Ethyl Esters (Lovaza) 1 gm PO DAILY [facility] Last Admin: 05/27/17 09:47 Dose: 1 gm Ondansetron HCl (Zofran Inj) 4 mg IVP Q4H PRN PRN Reason: Nausea/Vomiting Pantoprazole Sodium (Protonix Inj) 40 mg IVP DAILY [facility] Last Admin: 05/27/17 09:47 Dose: 40 mg Potassium Chloride (K-Dur 20 Meq Er Tab) 40 meq PO Q4H [facility] Stop: 05/28/17 12:01 Saccharomyces Boulardii (Florastor) 250 mg PO BID [facility] - Labs Labs: 05/28/17 07:17 05/27/17 07:18 PT 13.8 SECONDS (9.7-12.2) H 05/26/17 10:37 INR 1.2 05/26/17 10:37 APTT 22 SECONDS (21-34) D 05/26/17 10:37 - Constitutional Appears: Well - Respiratory Exam Respiratory Exam: Clear to Ausculation Bilateral - Cardiovascular Exam Cardiovascular Exam: RRR - GI/Abdominal Exam GI & Abdominal Exam: Soft, Normal Bowel Sounds. absent: Guarding, Rigid, Tenderness, Mass, Rebound - Neurological Exam Neurological Exam: Alert, Oriented x3 Assessment and Plan (1) Shortness of breath Status: Acute (2) Vomiting Status: Acute (3) Abdominal pain Assessment & Plan: gastritis, pancreatitis. Status: Acute (4) Gastritis Status: Acute (5) Pancreatitis Assessment & Plan: Elevated lipase yesterday. Pt has back chris,. CT shows pancreatitis, but size of pancreas is normal. REC: follow lipase, IV fluids 22 cc/hr Diet- increase to liquids CASe discussed with Dr Coates 05/27/17. Follow labs, lytes Status: Acute (6) Pulmonary embolism Status: Acute (7) High triglycerides Status: Chronic (8) Hypertension Status: Chronic (9) Bilirubinemia Status: Acute
[2017-05-28 08:42] LABS: ALB/GLOB RATIO 1.3 (1.0-2.1); ALKALINE PHOSPHATASE 35 U/L (38-126); ALT/SGPT 41 U/L (9-52); AST/SGOT 92 U/L (14-36); BILIRUBIN,TOTAL 1.1 mg/dL (0.2-1.3); BLOOD UREA NITROGEN 4 mg/dL (7-17); CALCIUM 8.3 mg/dl (8.6-10.4); CARBON DIOXIDE 27 mmol/L (22-30); CHLORIDE 99 mmol/L (98-107); GFR AFRICAN-AMERICAN > 60; GLUCOSE,RANDOM 85 mg/dL (65-105); MAGNESIUM 1.6 mg/dL (1.6-2.3); PHOSPHOROUS 2.3 mg/dL (2.5-4.5); POTASSIUM 3.5 mmol/L (3.6-5.2); SODIUM 132 mmol/L (132-148); TOTAL PROTEIN 5.7 g/dL (6.3-8.3)
[2017-05-28] MEDS ORDERED: Saccharomyces Boulardi 250 mg Cap PO SCH (10:00)
[2017-05-28] MEDS: Omega-3-Acid Ethyl Esters 1 GM Cap PO SCH (10:05)
[2017-05-28] MEDS: Multiple Vitamins Tab PO SCH (10:05)
[2017-05-28] MEDS: Enoxaparin 80 mg Syringe SC SCH (10:06)
--- NOTE | 2017-05-28 12:21 | PCM.PSYCH ---
Initial Psychiatric Evaluation - Initial Psychiatric Evaluation Chief Complaint (in patient's own words): " I am fine" Patient's Reaction to Hospitalization: The pt is seen, chart reviewed and case discussed. 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 Patient was admitted with pancreatitis. Psychiatry consult was placed for further evaluation of alcohol use disorder. Patient states that sometimes she has a little too much to drink due to recent losses of family member, however, patient states that she does not use alcohol daily and does not have a problem. Patient states that she does not drink like before as she is aware of her pancreatic issue. Patient states that she drinks socially, which tends to be a lot. Patient denies any episodes of shakiness or seizures. Patient denies use of illicit substances Past psych hx: Denies Family psych hx: Denies Past medical hx: Hypertension, gastritis, Hypertriglyceridemia, History of PE Current Medications: Active Medications Generic Name Dose Route Start Last Admin Trade Name Yannickq PRN Reason Stop Dose Admin Enoxaparin Sodium 70 mg 05/26/17 22:00 05/28/17 10:06 Lovenox SC 70 mg Q12 [facility] Administration Folic Acid 1 mg 05/28/17 10:00 05/28/17 10:05 Folic Acid PO 1 mg DAILY [facility] Administration Ceftriaxone Sodium 1 gm/ 100 mls @ 100 mls/hr 05/26/17 17:00 05/27/17 16:59 Sodium Chloride IVPB 100 mls/hr DAILY@1700 [facility] Administration Lactated Ringer's 1,000 mls @ 150 mls/hr 05/27/17 16:09 05/28/17 06:19 Lactated Ringer's IV 05/28/17 13:45 150 mls/hr .Q6H40M [facility] Administration Ketorolac Tromethamine 15 mg 05/28/17 07:52 Toradol IVP Q6 PRN Pain, moderate (4-7) Ketorolac Tromethamine 30 mg 05/28/17 07:53 05/28/17 08:37 Toradol IVP 30 mg Q6 PRN Administration Pain, severe (8-10) Lisinopril 5 mg 05/27/17 10:00 05/28/17 10:05 Zestril PO 5 mg DAILY [facility] Administration Lorazepam 2 mg 05/26/17 13:48 05/26/17 14:18 Ativan IVP 2 mg Q2H PRN Administration Seizure activity Lorazepam 1 mg 05/26/17 13:50 Ativan IVP Q4H PRN Symptoms of alcohol withdrawl Multivitamins 1 tab 05/28/17 10:00 05/28/17 10:05 Hexavitamin PO 1 tab DAILY [facility] Administration Aqyhk-3-Brzm Ethyl Esters 1 gm 05/27/17 10:00 05/28/17 10:05 Lovaza PO 1 gm DAILY [facility] Administration Ondansetron HCl 4 mg 05/26/17 13:38 Zofran Inj IVP Q4H PRN Nausea/Vomiting Pantoprazole Sodium 40 mg 05/27/17 10:00 05/28/17 10:05 Protonix Inj IVP 40 mg DAILY [facility] Administration Saccharomyces Boulardii 250 mg 05/28/17 10:00 05/28/17 10:05 Florastor PO 250 mg BID [facility] Administration Thiamine HCl 100 mg 05/28/17 10:00 05/28/17 10:05 Vitamin B1 Tab PO 100 mg DAILY [facility] Administration Past Psychiatric History - Past Psychiatric History Pertinent Medical Hx (Current Medical&Sleep Prob, Allergies): Allergies Allergy/AdvReac Type Severity Reaction Status Date / Time No Known Allergies Allergy Verified 05/26/17 08:07 Lisinopril [Zestril] 5 mg PO DAILY #30 tab 03/21/17 Dabigatran [Pradaxa] 150 mg PO BID 03/26/17 Multivitamin/Iron/Folic Acid [Centrum Women Tablet] 1 each PO DAILY 05/24/17 [place]-3 Fatty Acids/Fish Oil [Fish Oil 1,000 mg Capsule] 1,000 mg PO DAILY 05/24 Ondansetron [Zofran] 4 mg PO Q8H PRN #15 tab 05/24/17 Review of Systems - Neurological Neurological: UNREMARKABLE - Psychiatric Psychiatric: UNREMARKABLE Mental Status Examination - Personal Presentation Personal Presentation: Looks stated age - Affect Affect: Other (Normal, Appropriate ) - Motor Activity Motor Activity: Calm - Reliability in Providing Information Reliability in Providing Information: Good - Speech Speech: Organized - Formal Thought Process Formal Thought Process: No Impairment - Obsessions/Compulsions Obsessions: No Compulsions: No - Cognitive Functions Orientation: Person, Place, Situation, Time Sensorium: Alert Attention/Concentration: Attentive Judgement: Intact, as evidence by: Insight regarding need for hospitalization Memory: Recent intact, as evidence by: Ability to recall events of the day - Strength & Assets Inventory Strength & Assets Inventory: Family support DSM 5 DX - DSM 5 DSM 5 Diagnosis: Alcohol use d/o---> Mild 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
--- NOTE | 2017-05-28 12:57 | US ---
HISTORY: menorrhagia COMPARISON: CT abdomen and pelvis without IV contrast performed 05/27/17 TECHNIQUE: Real-time transabdominal pelvic ultrasound was performed. In addition a transvaginal pelvic ultrasound was necessary to better depict pelvic anatomy. FINDINGS: UTERUS: Measures 5.9 x 2.8 x 4.1 cm. Anteverted. ENDOMETRIUM: Measures 3 mm in diameter. CERVIX: Fluid noted within the cervix. RIGHT OVARY: Measures 2.9 x 2.2 x 1.5 cm. Blood flow is demonstrated. LEFT OVARY: Measures 2.5 x 2.5 x 1.8 cm. Blood flow is demonstrated. 1.5 x 1.0 x 1.5 cm complex appearing cyst with either debris, septations, or daughter cysts. FREE FLUID: Marked pelvic ascites with debris; correlate clinically for possibility of ruptured ovarian cyst. Small free fluid noted within the right upper quadrant. OTHER FINDINGS: None. IMPRESSION: Marked pelvic ascites with debris; correlate clinically for possibility of ruptured ovarian cyst. Small free fluid noted within the right upper quadrant. 1.5 x 1.0 x 1.5 cm complex appearing cyst with either debris, septations, or daughter cysts. Recommend attention on 6 week ultrasound follow-up.
[2017-05-29] MEDS: Lactated Ringer's 1,000 ML IV SCH ×4 (00:07→19:39)
[2017-05-29 07:11] LABS: BASO % 0.4 % (0.0-2.0); EOS % 1.2 % (0.0-4.0); HEMATOCRIT 30.9 % (34.0-47.0); LYMPH # 1.4 K/uL (1.0-4.3); LYMPH % 41.3 % (20.0-40.0); MEAN CELL VOLUME 92.6 fL (81.0-99.0); MEAN CORPUSCULAR HEMOGLOBIN 32.2 pg (27.0-31.0); MEAN CORPUSCULAR HGB CONC 34.8 g/dL (33.0-37.0); MEAN PLATELET VOLUME 8.9 fL (7.2-11.7); MONO # 0.2 K/uL (0.0-0.8); MONO % 6.3 % (0.0-10.0); NRBC % 0.1 % (0.0-2.0); RED CELL DISTRIBUTION WIDTH 12.7 % (11.5-14.5); WHITE BLOOD COUNT 3.3 K/uL (4.8-10.8)
[2017-05-29 08:11] LABS: ALB/GLOB RATIO 1.2 (1.0-2.1); ALKALINE PHOSPHATASE 29 U/L (38-126); ALT/SGPT 39 U/L (9-52); AMYLASE 223 U/L (30-110); AST/SGOT 61 U/L (14-36); BILIRUBIN,TOTAL 0.4 mg/dL (0.2-1.3); BLOOD UREA NITROGEN 4 mg/dL (7-17); CALCIUM 8.4 mg/dl (8.6-10.4); CARBON DIOXIDE 25 mmol/L (22-30); CHLORIDE 103 mmol/L (98-107); GFR AFRICAN-AMERICAN > 60; GLUCOSE,RANDOM 97 mg/dL (65-105); MAGNESIUM 1.4 mg/dL (1.6-2.3); PHOSPHOROUS 2.7 mg/dL (2.5-4.5); POTASSIUM 3.5 mmol/L (3.6-5.2); SODIUM 133 mmol/L (132-148); TOTAL PROTEIN 5.5 g/dL (6.3-8.3)
[2017-05-29] MEDS ORDERED: Potassium Chloride 20 mEq ER Tab PO ONE (09:11)
[2017-05-29] MEDS ORDERED: Iohexol 240 (50 ml) PO ONE (09:30)
--- NOTE | 2017-05-29 09:43 | CARD ---
APPROVED REPORT EKG Measurement Heart [id number] [id number] <Conclusion> Sinus tachycardia Possible Left atrial enlargement Borderline ECG
[2017-05-29] MEDS: Multiple Vitamins Tab PO SCH (10:00)
[2017-05-29] MEDS: Magnesium Sulfate 1 gm in D5W 1 GM/100 ML BAG IVPB SCH ×2 (10:01→11:07)
[2017-05-29] MEDS: Simethicone 80 mg Chewtab PO PRN (10:01)
[2017-05-29] MEDS: Omega-3-Acid Ethyl Esters 1 GM Cap PO SCH (10:01)
--- NOTE | 2017-05-29 10:21 | CP.PCM.PN ---
Subjective - Date & Time of Evaluation Date of Evaluation: 05/29/17 Time of Evaluation: 10:17 - Subjective Subjective: CC: Abdominal pain Ate some eggs today and developed bloating, gas, diarrhea, and abdominal pain radiating to back Objective - Vital Signs/Intake and Output Vital Signs (last 24 hours): Temp Pulse Resp BP Pulse Ox 98.6 F 90 20 108/66 96 05/29/17 08:04 05/29/17 08:04 05/29/17 08:04 05/29/17 08:04 05/29/17 08:04 Intake and Output: 05/29/17 05/29/17 06:59 18:59 Intake Total 700 Balance 700 - Medications Medications: Current Medications Dabigatran (Pradaxa) 150 mg PO BID [facility] Last Admin: 05/29/17 10:01 Dose: 150 mg Folic Acid (Folic Acid) 1 mg PO DAILY [facility] Last Admin: 05/29/17 10:00 Dose: 1 mg Lactated Ringer's (Lactated Ringer's) 1,000 mls @ 150 mls/hr IV .Q6H40M [facility] Last Admin: 05/29/17 06:13 Dose: 150 mls/hr Magnesium Sulfate/Dextrose (Magnesium Sulfate 1 Gm/100 Ml D5w) 1 gm in 100 mls @ 100 mls/hr IVPB Q1H [facility] Stop: 05/29/17 11:29 Last Admin: 05/29/17 10:01 Dose: 100 mls/hr Ketorolac Tromethamine (Toradol) 15 mg IVP Q6 PRN PRN Reason: Pain, moderate (4-7) Ketorolac Tromethamine (Toradol) 30 mg IVP Q6 PRN PRN Reason: Pain, severe (8-10) Last Admin: 05/29/17 07:14 Dose: 30 mg Lisinopril (Zestril) 5 mg PO DAILY [facility] Last Admin: 05/29/17 10:00 Dose: 5 mg Lorazepam (Ativan) 2 mg IVP Q2H PRN PRN Reason: Seizure activity Last Admin: 05/26/17 14:18 Dose: 2 mg Lorazepam (Ativan) 1 mg IVP Q4H PRN PRN Reason: Symptoms of alcohol withdrawl Multivitamins (Hexavitamin) 1 tab PO DAILY [facility] Last Admin: 05/29/17 10:00 Dose: 1 tab Dlqlz-4-Ztfo Ethyl Esters (Lovaza) 1 gm PO DAILY [facility] Last Admin: 05/29/17 10:01 Dose: 1 gm Ondansetron HCl (Zofran Inj) 4 mg IVP Q4H PRN PRN Reason: Nausea/Vomiting Pantoprazole Sodium (Protonix Inj) 40 mg IVP DAILY [facility] Last Admin: 05/29/17 10:00 Dose: 40 mg Simethicone (Mylicon Chew Tab) 80 mg PO BID PRN PRN Reason: GI distress Last Admin: 05/29/17 10:01 Dose: 80 mg Thiamine HCl (Vitamin B1 Tab) 100 mg PO DAILY [facility] Last Admin: 05/29/17 10:00 Dose: 100 mg - Labs Labs: 05/29/17 07:02 05/29/17 07:02 PT 13.8 SECONDS (9.7-12.2) H 05/26/17 10:37 INR 1.2 05/26/17 10:37 APTT 22 SECONDS (21-34) D 05/26/17 10:37 - Constitutional Appears: Well, No Acute Distress - Head Exam Head Exam: NORMOCEPHALIC - Eye Exam Eye Exam: absent: Scleral icterus - Respiratory Exam Respiratory Exam: Clear to Ausculation Bilateral - Cardiovascular Exam Cardiovascular Exam: REGULAR RHYTHM - GI/Abdominal Exam GI & Abdominal Exam: Soft, Normal Bowel Sounds. absent: Tenderness Assessment and Plan (1) Pancreatitis Assessment & Plan: Alcoholic Pancreatitis- gradually improving with conservative treatment rec: advance diet as tolerated (low fat) Status: Acute
--- NOTE | 2017-05-29 13:25 | PCM.PYCHPN ---
Psychiatric Progress Note - Psychiatric Progress Note Patient seen today, length of contact: 15 minutes Patient Chief Complaint: " I am doing well" Problems Identified/Issues Discussed: The pt is seen, chart reviewed, case discussed with staff. 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 Medication Change: No Medical Record Reviewed: No Mental Status Examination - Cognitive Function Orientation: Person, Place, Situation, Time Memory: Intact Attention: WNL Concentration: WNL Association: WNL - Mood Mood: Other (Normal, appropriate ) - Affect Affect: Other (Normal, Appropriate ) - Speech Speech: Appropriate - Formal Thought Process Formal Thought Process: No Impairment - Suicidal Ideation Suicidal Ideation: No - Homicidal Ideation Homicidal Ideation: No Goal/Treatment Plan - Goal/Treatment Plan Progress Toward Problem(s) and Goals/Treatment Plan: Psychoeducation given Referral to oupatient management: CRS and therapy Encouraged continual family support No medical management at this time
--- NOTE | 2017-05-29 16:02 | CP.PCM.PN ---
<Richelle Rios - Last Filed: 05/29/17 16:08> Subjective - Date & Time of Evaluation Date of Evaluation: 05/29/17 Time of Evaluation: 16:00 - Subjective Subjective: Medicine Progress Note: Hospitalist Service Patient seen and examined at bedside. Per nursing no acute events overnight. Patient states that she ate eggs this morning and started to have epigastric pain. Also reports feeling gasy. Denies headaches, dizziness, cp, palpitations, sob, urinary symptoms, changes in bowel habits. Objective - Vital Signs/Intake and Output Vital Signs (last 24 hours): Temp Pulse Resp BP Pulse Ox 98.3 F 89 20 126/87 96 05/29/17 15:55 05/29/17 15:55 05/29/17 15:55 05/29/17 15:55 05/29/17 15:55 Intake and Output: 05/29/17 05/29/17 06:59 18:59 Intake Total 700 Balance 700 - Medications Medications: Current Medications Dabigatran (Pradaxa) 150 mg PO BID [facility] Last Admin: 05/29/17 10:01 Dose: 150 mg Folic Acid (Folic Acid) 1 mg PO DAILY [facility] Last Admin: 05/29/17 10:00 Dose: 1 mg Lactated Ringer's (Lactated Ringer's) 1,000 mls @ 150 mls/hr IV .Q6H40M [facility] Last Admin: 05/29/17 13:56 Dose: Not Given Ketorolac Tromethamine (Toradol) 15 mg IVP Q6 PRN PRN Reason: Pain, moderate (4-7) Ketorolac Tromethamine (Toradol) 30 mg IVP Q6 PRN PRN Reason: Pain, severe (8-10) Last Admin: 05/29/17 14:50 Dose: 30 mg Lisinopril (Zestril) 5 mg PO DAILY [facility] Last Admin: 05/29/17 10:00 Dose: 5 mg Lorazepam (Ativan) 2 mg IVP Q2H PRN PRN Reason: Seizure activity Last Admin: 05/26/17 14:18 Dose: 2 mg Lorazepam (Ativan) 1 mg IVP Q4H PRN PRN Reason: Symptoms of alcohol withdrawl Multivitamins (Hexavitamin) 1 tab PO DAILY [facility] Last Admin: 05/29/17 10:00 Dose: 1 tab Puqrv-5-Zwwg Ethyl Esters (Lovaza) 1 gm PO DAILY [facility] Last Admin: 05/29/17 10:01 Dose: 1 gm Ondansetron HCl (Zofran Inj) 4 mg IVP Q4H PRN PRN Reason: Nausea/Vomiting Pantoprazole Sodium (Protonix Inj) 40 mg IVP DAILY [facility] Last Admin: 05/29/17 10:00 Dose: 40 mg Simethicone (Mylicon Chew Tab) 80 mg PO BID PRN PRN Reason: GI distress Last Admin: 05/29/17 10:01 Dose: 80 mg Thiamine HCl (Vitamin B1 Tab) 100 mg PO DAILY [facility] Last Admin: 05/29/17 10:00 Dose: 100 mg - Labs Labs: 05/29/17 07:02 05/29/17 07:02 PT 13.8 SECONDS (9.7-12.2) H 05/26/17 10:37 INR 1.2 05/26/17 10:37 APTT 22 SECONDS (21-34) D 05/26/17 10:37 - Constitutional Appears: Well, No Acute Distress - Head Exam Head Exam: ATRAUMATIC, NORMAL INSPECTION - Eye Exam Eye Exam: EOMI, Normal appearance - ENT Exam ENT Exam: Mucous Membranes Moist - Respiratory Exam Respiratory Exam: Clear to Ausculation Bilateral, NORMAL BREATHING PATTERN. absent: Rales, Rhonchi, Wheezes - Cardiovascular Exam Cardiovascular Exam: REGULAR RHYTHM, +S1, +S2. absent: Murmur - GI/Abdominal Exam GI & Abdominal Exam: Soft, Tenderness (mild epigastric tenderness), Normal Bowel Sounds. absent: Firm, Guarding, Rigid - Rectal Exam Rectal Exam: Deferred - Back Exam Back Exam: Full ROM, paraspinal tenderness Additional comments: Hypertonic paraspinal muscles - Neurological Exam Neurological Exam: Alert, Awake, CN II-XII Intact, Normal Gait, Oriented x3 - Psychiatric Exam Psychiatric exam: Normal Affect, Normal Mood - Skin Skin Exam: Dry, Normal Color, Warm Assessment and Plan - Assessment and Plan (Free Text) Assessment: 1. Acute Pancreatitis * Monitor on telemetry * Patient was previously admitted for acute pancreatitis 03/2017 * Lipase elevated 409 on admission, trended up to 7476, currently downtrending * Per GI, continue GI soft diet * Continue Lactated Ringers 150cc/hr * Zofran 4mg Q6H prn nausea * Toradol prn pain (avoid opioids) * CT abd/pelvis: acute pancreatitis, no evidence for nephrolithiasis or hydronephrosis, moderate hepatomegaly and fatty liver (see full report) * Abdominal US (05/26/17): mild hepatomelagy. Diffuse increased echogencity in the liver may reflect hepatic steatosis however parenchymal infectious/ inflammatory etiologies cannot be entirely excluded. No cholelithiasis. Mild diffuse dilatation of the common bild duct without sonographic evidence of choledocholithiasis. Mild Splenomegay. * Blood cx showing no growth for 48 hours * GI on consult, Dr Frank, help appreciated * Alphonso's criteria: 0 2. Back Pain * Hypertonic paraspinal muscles noted on physical exam * Improved with myofascial release * Heat pad Q6H for 30 mins * Encourage ambulation, walk 10 laps around the hallway q1H 3. Episodic Alcohol abuse * Likely 2/2 to familial issues * Continue PO Folic acid, Thiamine, and Multivitamins * No signs or symptoms to alcohol withdrawal * Alcohol level on admission was 45 * UTOX was negative * Seizure precautions, Aspiration precautions * Psych consulted, help appreciated 4. Abnormal UA, Suprapubic Tenderness, Flank Pain * Urine cx growing <10,000 * Discontinued Rocephin and Florastor as patient is not symptomatic * CT Abdomen/Pelvis: acute pancreatitis, no evidence for nephrolithiasis or hydronephrosis, moderate hepatomegaly and fatty liver (see full report) 5. Hypokalemia * Replete potassium * Note patient was throwing up; which is improved 6. Hyponatremia * Improving, stable 7. History of hypertriglyceridemia * Continue omega fatty acids * Elevated triglycerides improved compared to March 2017 8. History of PE * Patient was diagnosed with PE in March 2017 * This was thought to be secondary to OCP use * Continue Pradaxa 150mg PO BID * CTA showed no evidence of PE, mild hepatomegaly (see full report) 9. Menorrhagia * Urine negative * Currently on her menstrual cycle * Patient reports with [facility] it was controlled * Patient seens OBGYN as outpatient 10. History of Hypertension * Monitor vital signs * Continue Lisinopril 5mg PO daily 11. Prophylactic Measures * Protonix 40mg IVP daily * Pradaxa 150mg BID <Marlon Marquez - Last Filed: 12/27/17 17:35> Objective - Vital Signs/Intake and Output Vital Signs (last 24 hours): Temp Pulse Resp BP Pulse Ox 98.3 F 89 20 126/87 96 05/29/17 15:55 05/29/17 15:55 05/29/17 15:55 05/29/17 15:55 05/29/17 15:55 Intake and Output: 05/29/17 05/29/17 06:59 18:59 Intake Total 700 Balance 700 - Medications Medications: Current Medications Dabigatran (Pradaxa) 150 mg PO BID [facility] Last Admin: 05/29/17 10:01 Dose: 150 mg Folic Acid (Folic Acid) 1 mg PO DAILY [facility] Last Admin: 05/29/17 10:00 Dose: 1 mg Lactated Ringer's (Lactated Ringer's) 1,000 mls @ 150 mls/hr IV .Q6H40M [facility] Last Admin: 05/29/17 13:56 Dose: Not Given Ketorolac Tromethamine (Toradol) 15 mg IVP Q6 PRN PRN Reason: Pain, moderate (4-7) Ketorolac Tromethamine (Toradol) 30 mg IVP Q6 PRN PRN Reason: Pain, severe (8-10) Last Admin: 05/29/17 14:50 Dose: 30 mg Lisinopril (Zestril) 5 mg PO DAILY [facility] Last Admin: 05/29/17 10:00 Dose: 5 mg Lorazepam (Ativan) 2 mg IVP Q2H PRN PRN Reason: Seizure activity Last Admin: 05/26/17 14:18 Dose: 2 mg Lorazepam (Ativan) 1 mg IVP Q4H PRN PRN Reason: Symptoms of alcohol withdrawl Multivitamins (Hexavitamin) 1 tab PO DAILY [facility] Last Admin: 05/29/17 10:00 Dose: 1 tab Gwevm-1-Cegc Ethyl Esters (Lovaza) 1 gm PO DAILY [facility] Last Admin: 05/29/17 10:01 Dose: 1 gm Ondansetron HCl (Zofran Inj) 4 mg IVP Q4H PRN PRN Reason: Nausea/Vomiting Pantoprazole Sodium (Protonix Inj) 40 mg IVP DAILY [facility] Last Admin: 05/29/17 10:00 Dose: 40 mg Simethicone (Mylicon Chew Tab) 80 mg PO BID PRN PRN Reason: GI distress Last Admin: 05/29/17 10:01 Dose: 80 mg Thiamine HCl (Vitamin B1 Tab) 100 mg PO DAILY [facility] Last Admin: 05/29/17 10:00 Dose: 100 mg - Labs Labs: 05/29/17 07:02 05/29/17 07:02 PT 13.8 SECONDS (9.7-12.2) H 05/26/17 10:37 INR 1.2 05/26/17 10:37 APTT 22 SECONDS (21-34) D 05/26/17 10:37 Attending/Attestation - Attestation I have personally seen and examined this patient.: Yes I have fully participated in the care of the patient.: Yes I have reviewed all pertinent clinical information, including history, physical exam and plan: Yes Notes (Text): 05/29/17 17:31 Patient was seen and examined at 1:45 PM 05/29/17 556 B Exam, assessment and plan were thoroughly gone over with the resident Also on ROS: Soreness in the epigastric area has improved and is better than yesterday NO SOB/Dyspnea NO more back pain NO more N/V She is currently tolerating full diet (she is eating spaghetti and meatballs) Moved her bowels today and it was softer and less watery She is having some back pain located in the left posterior lateral mid thoracic area NO other complaints upon FULL ROS Also on Exam: GI: BSx4, soft, ND, (+) Epigastric tenderness to deep palpation but NO guarding/ rebound tenderness Resp: CTA B/L, NO R/R/W Cardio: NS1 and NS2, NO M/R/G Ext: NO edema, Pulses are strong and equal, Capillary refill is 2 seconds Musculoskeletal: Hypertonic paraspinal muscles in the aforementioned area in ROS above that responded to myofascial release Assessments: 1). Acute Pancreatitis: advance diet as tolerated, continue IVF 2). Episodic Alcohol Abuse: F/U Psychiatry Evaluation 3). Abnormal UA: F/U Urine Culture, she is asymptomatic 4). Hypokalemia 5). Hyponatremia 6). Hx Hypertriglyceridemia 7). Hx PE: discontinue therapeutic Lovenox and restart Pradaxa 8). Hx Menorrhagia: she will need outpatient Manufacturing Development Engineer evaluation through [facility] 9). Hx HTN Heating pads ordered Q6H for 30 minutes to the aforementioned area on left back. Patient also encourage to get out of bed every 1 hour and walk ten laps on the medical floor. If patient continues to improve, we will discharge on morning 05/29/17. Marlon Marquez D.O.
[2017-05-30] MEDS: Simethicone 80 mg Chewtab PO PRN ×2 (00:24→09:46)
[2017-05-30] MEDS: Lactated Ringer's 1,000 ML IV SCH (03:36)
--- NOTE | 2017-05-30 07:05 | CP.PCM.DIS ---
<Richelle Rios - Last Filed: 05/30/17 10:26> Provider - Provider Date of Admission: 05/26/17 11:16 Attending physician: Edwin Carlin MD Consults: GI: Zac Psych: Freddy Time Spent in preparation of Discharge (in minutes): 31 Hospital Course - Lab Results Lab Results: Micro Results 05/26/17 17:10 Blood Blood Culture - Preliminary NO GROWTH AFTER 3 DAYS 05/26/17 16:25 Urine,Clean Catch Urine Culture - Final <10,000 CFU/ML. MULTIPLE SPECIES. PROBABLE CONTAMINATION. Most Recent Lab Values WBC 3.3 K/uL (4.8-10.8) L 05/29/17 07:02 RBC 3.34 Mil/uL (3.80-5.20) L 05/29/17 07:02 Hgb 10.8 g/dL (11.0-16.0) L 05/29/17 07:02 Hct 30.9 % (34.0-47.0) L 05/29/17 07:02 MCV 92.6 fL (81.0-99.0) 05/29/17 07:02 MCH 32.2 pg (27.0-31.0) H 05/29/17 07:02 MCHC 34.8 g/dL (33.0-37.0) 05/29/17 07:02 RDW 12.7 % (11.5-14.5) 05/29/17 07:02 Plt Count 157 K/uL (130-400) 05/29/17 07:02 MPV 8.9 fL (7.2-11.7) 05/29/17 07:02 Neut % (Auto) 50.8 % (50.0-75.0) 05/29/17 07:02 Lymph % (Auto) 41.3 % (20.0-40.0) H 05/29/17 07:02 Ogle % (Auto) 6.3 % (0.0-10.0) 05/29/17 07:02 Eos % (Auto) 1.2 % (0.0-4.0) 05/29/17 07:02 Baso % (Auto) 0.4 % (0.0-2.0) 05/29/17 07:02 Neut # 1.7 K/uL (1.8-7.0) L 05/29/17 07:02 Lymph # 1.4 K/uL (1.0-4.3) 05/29/17 07:02 Ogle # 0.2 K/uL (0.0-0.8) 05/29/17 07:02 Eos # 0.0 K/uL (0.0-0.7) 05/29/17 07:02 Baso # 0.0 K/uL (0.0-0.2) 05/29/17 07:02 PT 13.8 SECONDS (9.7-12.2) H 05/26/17 10:37 INR 1.2 05/26/17 10:37 APTT 22 SECONDS (21-34) D 05/26/17 10:37 D-Dimer, Quantitative 228 ng/mlDDU (0-243) 05/26/17 10:37 Sodium 133 mmol/L (132-148) 05/29/17 07:02 Potassium 3.5 mmol/L (3.6-5.2) L 05/29/17 07:02 Chloride 103 mmol/L (98-107) 05/29/17 07:02 Carbon Dioxide 25 mmol/L (22-30) 05/29/17 07:02 Anion Gap 8 (10-20) L 05/29/17 07:02 BUN 4 mg/dL (7-17) L 05/29/17 07:02 Creatinine 0.7 mg/dL (0.7-1.2) 05/29/17 07:02 Est GFR ( Amer) > 60 05/29/17 07:02 Est GFR (Non-Af Amer) > 60 05/29/17 07:02 Random Glucose 97 mg/dL (65-105) 05/29/17 07:02 Calcium 8.4 mg/dl (8.6-10.4) L 05/29/17 07:02 Phosphorus 2.7 mg/dL (2.5-4.5) 05/29/17 07:02 Magnesium 1.4 mg/dL (1.6-2.3) L 05/29/17 07:02 Total Bilirubin 0.4 mg/dL (0.2-1.3) 05/29/17 07:02 AST 61 U/L (14-36) H D 05/29/17 07:02 ALT 39 U/L (9-52) 05/29/17 07:02 Alkaline Phosphatase 29 U/L (38-126) L 05/29/17 07:02 Lactate Dehydrogenase 428 U/L (313-618) 05/26/17 13:16 Troponin I < 0.0120 ng/mL (0.00-0.120) 05/26/17 09:00 NT-Pro-B Natriuret Pep 11.5 pg/mL (0-450) 05/26/17 09:00 Total Protein 5.5 g/dL (6.3-8.3) L 05/29/17 07:02 Albumin 2.9 g/dL (3.5-5.0) L 05/29/17 07:02 Globulin 2.5 gm/dL (2.2-3.9) 05/29/17 07:02 Albumin/Globulin Ratio 1.2 (1.0-2.1) 05/29/17 07:02 Triglycerides 298 mg/dL (0-149) H D 05/26/17 13:16 Cholesterol 156 mg/dL (0-199) 05/26/17 13:16 LDL Cholesterol Direct 51 mg/dL (0-129) 05/26/17 13:16 HDL Cholesterol 105 mg/dL (30-70) H 05/26/17 13:16 Amylase 223 U/L (30-110) H D 05/29/17 07:02 Lipase 4046 U/L (23-300) H 05/29/17 07:02 Free T4 1.33 ng/dL (0.78-2.19) 05/27/17 07:18 TSH 3rd Generation 6.18 mIU/L (0.46-4.68) H 05/27/17 07:18 Urine Color Yellow (YELLOW) 05/26/17 09:00 Urine Clarity Hazy (Clear) 05/26/17 09:00 Urine pH 5.0 (5.0-8.0) 05/26/17 09:00 Ur Specific [place] 1.026 (1.003-1.030) 05/26/17 09:00 Urine Protein 1+ mg/dL (NEGATIVE) H 05/26/17 09:00 Urine Glucose (UA) Normal mg/dL (Normal) 05/26/17 09:00 Urine Ketones 1+ mg/dL (NEGATIVE) H 05/26/17 09:00 Urine Blood 3+ (NEGATIVE) H 05/26/17 09:00 Urine Nitrate Negative (NEGATIVE) 05/26/17 09:00 Urine Bilirubin Negative (NEGATIVE) 05/26/17 09:00 Urine Urobilinogen Normal mg/dL (0.2-1.0) 05/26/17 09:00 Ur Leukocyte Esterase Neg Diane/uL (Negative) 05/26/17 09:00 Urine WBC (Auto) 7 /hpf (0-5) H 05/26/17 09:00 Urine RBC (Auto) 56 /hpf (0-3) H 05/26/17 09:00 Ur Squamous Epith Cells 7 /hpf (0-5) H 05/26/17 09:00 Urine Bacteria Rare (<OCC) 05/26/17 09:00 Urine HCG, Qual Negative (NEGATIVE) 05/26/17 09:00 Urine Opiates Screen Negative (NEGATIVE) 05/26/17 09:00 Urine Methadone Screen Negative (NEGATIVE) 05/26/17 09:00 Ur Barbiturates Screen Negative (NEGATIVE) 05/26/17 09:00 Ur Phencyclidine Scrn Negative (NEGATIVE) 05/26/17 09:00 Ur Amphetamines Screen Negative (NEGATIVE) 05/26/17 09:00 U Benzodiazepines Scrn Negative (NEGATIVE) 05/26/17 09:00 U Oth Cocaine Metabols Negative (NEGATIVE) 05/26/17 09:00 U Cannabinoids Screen Negative (NEGATIVE) 05/26/17 09:00 Alcohol, Quantitative 45 mg/dl (0-10) H 05/26/17 13:16 - Hospital Course Hospital Course: Patient is a 31 year old female with past medical history of Hypertension, gastritis, Hypertriglyceridemia, PE (diagnosed 03/2017) secondary to OCP use presents today for worsening shortness of breath and nausea/vomiting. Patient reports that she relapsed on alcohol and has been drinking 1/2 bottle of Disha daily for the past week with her friends, she also reports drinking wine. Due to the drinking, patient states that she has not been eating for the past few days. States that she has also been having nausea and NBNB vomiting for 3 days. She approximately had 5 episodes of vomiting a day. States that she hasnt been taking her Pradaxa for the past 3 days because of the vomiting. Patient was recently evaluated in the ED 3 days ago for abdominal pain, N/V. Patient was discharge home from the ED. Patient was previously admitted to the hospital in March 2017 for Acute pancreatitis. Currently admits to having RUQ pain and back pain. Patient was admitted for acute pancreatitis and episodic alcohol abuse/ withdrawal. Alcohol level was 45 and UTOX was negative. Patient was made NPO and started on IV hydration. CT chest was done in the ED which showed no evidence on PE, mild hepatomegaly (see full report). Patient was started on weight based lovenox as she was not tolerating PO. Abdominal US was initially performed and showed mild hepatomegaly/splenomegaly, no evidence of cholithiasis , diffuse dilation of CBD (6.3mm), no stone (see full report). CT abd/pelvis showed findings consistent with acute pancreatitis. Lipase was elevated at 7476 and trended down to 3144. Ransen's criteria was 0. GI was consulted and following the patient. Psych was consulted for suspected depression as patient' s brother was murdered and alcohol abuse/withdrawal. Patient was initially started on Rocephin for abnormal UA. Patient was asymptomatic and Urine culture grew <10,000. Rocephin was discontinued. For back pain, patient was given a heating pad with relief in symptoms. Patient stated that she has a history of menorrhagia. Pelvic US was ordered and showed marked pelvic ascites with debris ; small free fluid within RUQ; 1.5 x 1.0 x 1.5 cm complex appearing cyst with either debris, septations, or daughter cysts. Recommend attention on 6 week follow up US (see full report). Electrolytes were monitored and repleted as needed. On day of discharge, patient was doing well. Ambulating and tolerating diet. Abdominal pain/back pain resolved. Patient was medically stable and clear for discharge. Alcohol cessation strongly advised, patient was referred to alcoholics anonymous ([facility]) in [place], [place]. Patient instructed to follow up with [facility] within 1 week. During this stay, patient was tachycardic, TSH came back elevated at 6.18 however free T4 was normal. Tachycardia has since resolved. Recommending repeat thyroid function test in 2-4 weeks. Patient is also to follow up with [facility] outpatient for menorrhagia, will need repeat pelvic US in 6 weeks. Discharge Medications: Pradaxa 150mg PO BID Lisinopril 5mg PO daily [place] 3 Fatty Acids 1gm PO daily Simthicone 80mg PO BID PRN GI distress Discharge Exam - Head Exam Head Exam: ATRAUMATIC, NORMAL INSPECTION - Eye Exam Eye Exam: EOMI, Normal appearance Pupil Exam: NORMAL ACCOMODATION - ENT Exam ENT Exam: Mucous Membranes Moist - Neck Exam Neck exam: Full Rom - Respiratory Exam Respiratory Exam: Clear to PA & Lateral, NORMAL BREATHING PATTERN, UNREMARKABLE. absent: Decreased Breath Sounds, Rales, Rhonchi, Wheezes - Cardiovascular Exam Cardiovascular Exam: REGULAR RHYTHM, +S1, +S2 - GI/Abdominal Exam GI & Abdominal Exam: Normal Bowel Sounds, Soft. absent: Guarding, Rebound, Rigid, Tenderness - Rectal Exam Rectal Exam: Deferred - Extremities Exam Extremities exam: normal inspection, pedal pulses present - Neurological Exam Neurological exam: Alert, CN II-XII Intact, Normal Gait, Oriented x3 - Psychiatric Exam Psychiatric exam: Normal Affect, Normal Mood - Skin Skin Exam: Dry, Normal Color, Warm Discharge Plan - Discharge Medications Prescriptions: Dabigatran [Pradaxa] 150 mg PO BID #60 cap Lisinopril [Zestril] 5 mg PO DAILY #30 tab [place]-3 Fatty Acids/Fish Oil [Fish Oil 1,000 mg Capsule] 1,000 mg PO DAILY #30 capsule Simethicone [Gas Relief 80] 80 mg PO BID PRN #14 ctb PRN Reason: Gi Distress - Follow Up Plan Condition: GOOD Disposition: HOME/ ROUTINE Instructions: Dabigatran (By mouth), Pancreatitis (DC), Pancreatitis (GEN), Dyspnea (GEN) Additional Instructions: 1. Alcohol cessation strongly advised -F/U with Alcoholics Anonymous at [facility] ([address] at [place], [place]) -Continued drinking alcohol, along with Pradaxa is dangerous to your health 2. F/U with [facility] within 1 week [phone] (Appointment at 1pm) 3. Patient will need to repeat Thyroid function test within 2-4 weeks 4. Please F/U with [facility] outpatient for menorrhagia, Will need repeat Transvaginal US in 6 weeks Referrals: Katharina Garcia [Medical Doctor] - Mohsen Nair MD [Staff Provider] - Stephen Agudelo MD [Staff Provider] - <Marlon Marquez - Last Filed: 05/30/17 15:34> Provider - Provider Date of Admission: 05/26/17 11:16 Attending physician: Edwin Carlin MD Hospital Course - Lab Results Lab Results: Micro Results 05/26/17 17:10 Blood Blood Culture - Preliminary NO GROWTH AFTER 3 DAYS 05/26/17 16:25 Urine,Clean Catch Urine Culture - Final <10,000 CFU/ML. MULTIPLE SPECIES. PROBABLE CONTAMINATION. Most Recent Lab Values WBC 3.5 K/uL (4.8-10.8) L 05/30/17 07:30 RBC 3.06 Mil/uL (3.80-5.20) L 05/30/17 07:30 Hgb 10.0 g/dL (11.0-16.0) L 05/30/17 07:30 Hct 28.4 % (34.0-47.0) L 05/30/17 07:30 MCV 92.8 fL (81.0-99.0) 05/30/17 07:30 MCH 32.7 pg (27.0-31.0) H 05/30/17 07:30 MCHC 35.3 g/dL (33.0-37.0) 05/30/17 07:30 RDW 12.8 % (11.5-14.5) 05/30/17 07:30 Plt Count 150 K/uL (130-400) 05/30/17 07:30 MPV 9.4 fL (7.2-11.7) 05/30/17 07:30 Neut % (Auto) 45.3 % (50.0-75.0) L 05/30/17 07:30 Lymph % (Auto) 46.6 % (20.0-40.0) H 05/30/17 07:30 Ogle % (Auto) 6.3 % (0.0-10.0) 05/30/17 07:30 Eos % (Auto) 1.4 % (0.0-4.0) 05/30/17 07:30 Baso % (Auto) 0.4 % (0.0-2.0) 05/30/17 07:30 Neut # 1.6 K/uL (1.8-7.0) L 05/30/17 07:30 Lymph # 1.6 K/uL (1.0-4.3) 05/30/17 07:30 Ogle # 0.2 K/uL (0.0-0.8) 05/30/17 07:30 Eos # 0.0 K/uL (0.0-0.7) 05/30/17 07:30 Baso # 0.0 K/uL (0.0-0.2) 05/30/17 07:30 PT 13.8 SECONDS (9.7-12.2) H 05/26/17 10:37 INR 1.2 05/26/17 10:37 APTT 22 SECONDS (21-34) D 05/26/17 10:37 D-Dimer, Quantitative 228 ng/mlDDU (0-243) 05/26/17 10:37 Sodium 131 mmol/L (132-148) L 05/30/17 07:30 Potassium 3.6 mmol/L (3.6-5.2) 05/30/17 07:30 Chloride 104 mmol/L (98-107) 05/30/17 07:30 Carbon Dioxide 23 mmol/L (22-30) 05/30/17 07:30 Anion Gap 8 (10-20) L 05/30/17 07:30 BUN 4 mg/dL (7-17) L 05/30/17 07:30 Creatinine 0.7 mg/dL (0.7-1.2) 05/30/17 07:30 Est GFR ( Amer) > 60 05/30/17 07:30 Est GFR (Non-Af Amer) > 60 05/30/17 07:30 Random Glucose 96 mg/dL (65-105) 05/30/17 07:30 Calcium 8.1 mg/dl (8.6-10.4) L 05/30/17 07:30 Phosphorus 3.8 mg/dL (2.5-4.5) 05/30/17 07:30 Magnesium 1.5 mg/dL (1.6-2.3) L 05/30/17 07:30 Total Bilirubin 0.3 mg/dL (0.2-1.3) 05/30/17 07:30 AST 58 U/L (14-36) H 05/30/17 07:30 ALT 41 U/L (9-52) 05/30/17 07:30 Alkaline Phosphatase 30 U/L (38-126) L 05/30/17 07:30 Lactate Dehydrogenase 428 U/L (313-618) 05/26/17 13:16 Troponin I < 0.0120 ng/mL (0.00-0.120) 05/26/17 09:00 NT-Pro-B Natriuret Pep 11.5 pg/mL (0-450) 05/26/17 09:00 Total Protein 5.5 g/dL (6.3-8.3) L 05/30/17 07:30 Albumin 3.0 g/dL (3.5-5.0) L 05/30/17 07:30 Globulin 2.5 gm/dL (2.2-3.9) 05/30/17 07:30 Albumin/Globulin Ratio 1.2 (1.0-2.1) 05/30/17 07:30 Triglycerides 298 mg/dL (0-149) H D 05/26/17 13:16 Cholesterol 156 mg/dL (0-199) 05/26/17 13:16 LDL Cholesterol Direct 51 mg/dL (0-129) 05/26/17 13:16 HDL Cholesterol 105 mg/dL (30-70) H 05/26/17 13:16 Amylase 223 U/L (30-110) H D 05/29/17 07:02 Lipase 3144 U/L (23-300) H 05/30/17 07:30 Free T4 1.33 ng/dL (0.78-2.19) 05/27/17 07:18 TSH 3rd Generation 6.18 mIU/L (0.46-4.68) H 05/27/17 07:18 Urine Color Yellow (YELLOW) 05/26/17 09:00 Urine Clarity Hazy (Clear) 05/26/17 09:00 Urine pH 5.0 (5.0-8.0) 05/26/17 09:00 Ur Specific [place] 1.026 (1.003-1.030) 05/26/17 09:00 Urine Protein 1+ mg/dL (NEGATIVE) H 05/26/17 09:00 Urine Glucose (UA) Normal mg/dL (Normal) 05/26/17 09:00 Urine Ketones 1+ mg/dL (NEGATIVE) H 05/26/17 09:00 Urine Blood 3+ (NEGATIVE) H 05/26/17 09:00 Urine Nitrate Negative (NEGATIVE) 05/26/17 09:00 Urine Bilirubin Negative (NEGATIVE) 05/26/17 09:00 Urine Urobilinogen Normal mg/dL (0.2-1.0) 05/26/17 09:00 Ur Leukocyte Esterase Neg Diane/uL (Negative) 05/26/17 09:00 Urine WBC (Auto) 7 /hpf (0-5) H 05/26/17 09:00 Urine RBC (Auto) 56 /hpf (0-3) H 05/26/17 09:00 Ur Squamous Epith Cells 7 /hpf (0-5) H 05/26/17 09:00 Urine Bacteria Rare (<OCC) 05/26/17 09:00 Urine HCG, Qual Negative (NEGATIVE) 05/26/17 09:00 Urine Opiates Screen Negative (NEGATIVE) 05/26/17 09:00 Urine Methadone Screen Negative (NEGATIVE) 05/26/17 09:00 Ur Barbiturates Screen Negative (NEGATIVE) 05/26/17 09:00 Ur Phencyclidine Scrn Negative (NEGATIVE) 05/26/17 09:00 Ur Amphetamines Screen Negative (NEGATIVE) 05/26/17 09:00 U Benzodiazepines Scrn Negative (NEGATIVE) 05/26/17 09:00 U Oth Cocaine Metabols Negative (NEGATIVE) 05/26/17 09:00 U Cannabinoids Screen Negative (NEGATIVE) 05/26/17 09:00 Alcohol, Quantitative 45 mg/dl (0-10) H 05/26/17 13:16 Attending/Attestation - Attestation I have personally seen and examined this patient.: Yes I have fully participated in the care of the patient.: Yes I have reviewed all pertinent clinical information, including history, physical exam and plan: Yes Notes (Text): 05/30/17 15:32 Patient was seen and examined at 10 AM 05/30/17. Exam, assessment and plan and discharge instructions were thoroughly gone over with the resident. Patient is no longer experiencing abdominal pain. She is no longer experiencing n/v. She is tolerating a full diet. She is stable for discharge and outpatient follow up through [facility] as documented above. Marlon Marquez D.O.
[2017-05-30 07:38] VITALS: BP 125/88; PULSE 85; TEMP 98; O2SAT 99
[2017-05-30 08:00] LABS: BASO % 0.4 % (0.0-2.0); EOS % 1.4 % (0.0-4.0); HEMATOCRIT 28.4 % (34.0-47.0); LYMPH # 1.6 K/uL (1.0-4.3); LYMPH % 46.6 % (20.0-40.0); MEAN CELL VOLUME 92.8 fL (81.0-99.0); MEAN CORPUSCULAR HEMOGLOBIN 32.7 pg (27.0-31.0); MEAN CORPUSCULAR HGB CONC 35.3 g/dL (33.0-37.0); MEAN PLATELET VOLUME 9.4 fL (7.2-11.7); MONO # 0.2 K/uL (0.0-0.8); MONO % 6.3 % (0.0-10.0); NRBC % 0.1 % (0.0-2.0); RED CELL DISTRIBUTION WIDTH 12.8 % (11.5-14.5); WHITE BLOOD COUNT 3.5 K/uL (4.8-10.8)
[2017-05-30 08:42] LABS: ALB/GLOB RATIO 1.2 (1.0-2.1); ALKALINE PHOSPHATASE 30 U/L (38-126); ALT/SGPT 41 U/L (9-52); AST/SGOT 58 U/L (14-36); BILIRUBIN,TOTAL 0.3 mg/dL (0.2-1.3); BLOOD UREA NITROGEN 4 mg/dL (7-17); CALCIUM 8.1 mg/dl (8.6-10.4); CARBON DIOXIDE 23 mmol/L (22-30); CHLORIDE 104 mmol/L (98-107); GFR AFRICAN-AMERICAN > 60; GLUCOSE,RANDOM 96 mg/dL (65-105); MAGNESIUM 1.5 mg/dL (1.6-2.3); PHOSPHOROUS 3.8 mg/dL (2.5-4.5); POTASSIUM 3.6 mmol/L (3.6-5.2); SODIUM 131 mmol/L (132-148); TOTAL PROTEIN 5.5 g/dL (6.3-8.3)
[2017-05-30] MEDS: Multiple Vitamins Tab PO SCH (09:47)
[2017-05-30] MEDS: Omega-3-Acid Ethyl Esters 1 GM Cap PO SCH (09:47)
[2017-05-30] MEDS: Magnesium Sulfate 1 gm in D5W 1 GM/100 ML BAG IVPB SCH ×2 (09:54→12:50)
[2017-05-30] MEDS ORDERED: Magnesium Sulfate 1 gm in D5W 1 GM/100 ML BAG IVPB SCH (13:00)
== END 2017-05-30 14:46 | disposition home or self-care (01) | DRG 439 ==
LOC: C.ER 07:44 → C.9E 11:16 → C.5S 11:31
PROVIDERS: ADMIT Internal Medicine; ATTEND Internal Medicine
DX: K85.90 Acute pancreatitis without necrosis or infection, unspecified (principal); F10.239 Alcohol dependence with withdrawal, unspecified; R18.8 Other ascites; E87.1 Hypo-osmolality and hyponatremia; N92.0 Excessive and frequent menstruation with regular cycle; I10 Essential (primary) hypertension; E78.1 Pure hyperglyceridemia; E87.6 Hypokalemia; Z79.01 Long term (current) use of anticoagulants; Z86.711 Personal history of pulmonary embolism

== ENCOUNTER 2017-06-07 06:08 | Observation (INO) | payer MEDICAID, OTHER ==
[2017-06-07 06:08] VITALS: BMI 23.8
[2017-06-07] MEDS ORDERED: Sodium Chloride 0.9% 1,000 ML IV ONE ×2 (06:24→06:46)
[2017-06-07] MEDS ORDERED: Sodium Chloride 0.9% 1,000 ML ONE ×2 (06:39→06:55)
--- NOTE | 2017-06-07 06:46 | C.PDOC ---
History Of Present Illness 31 year old female presents to the ER with a complaint of nausea, bilious vomiting, and abdominal pain for the past 2 days. Denies fever, chills, or chest pain. Patient has an extensive Hx of pancreatitis and Hx of PE four months ago. She is a chronic drinker. Patient was discharged on 05/30/17, she was admitted for acute pancreatitis, ETOH abuse and withdrawal. She had a CT chest at the time that showed no new PE and mild hepatomegaly. Patient was on lovenox and discharged on pradaxa. Lipase was 7000 and trended down to 3000. Patient also sufferes from depression secondary to her brother being murdered. Time Seen by Provider: 06/07/17 06:24 Chief Complaint (Nursing): Abdominal Pain History Per: Patient History/Exam Limitations: no limitations Onset/Duration Of Symptoms: Days Current Symptoms Are (Timing): Still Present Location Of Pain/Discomfort: Diffuse Quality Of Discomfort: Unable To Describe Associated Symptoms: Nausea, Vomiting. denies: Fever, Chills Exacerbating Factors: None Alleviating Factors: None Recent travel outside of the [place]: No Abnormal Vaginal Bleeding: No Past Medical History Reviewed: Historical Data, Nursing Documentation, Vital Signs Vital Signs: Last Vital Signs Temp 98.1 F 06/07/17 06:33 Pulse 123 H 06/07/17 06:33 Resp 28 H 06/07/17 06:33 BP 132/97 H 06/07/17 06:33 Pulse Ox 98 06/07/17 07:03 - Medical History PMH: Gastritis, HTN, Hypercholesterolemia, Pulmonary Embolism (2017) Family History: States: Unknown Family Hx - Social History Hx Tobacco Use: No Hx Alcohol Use: No Hx Substance Use: No - Immunization History Hx Tetanus Toxoid Vaccination: Yes Hx Influenza Vaccination: Yes Hx Pneumococcal Vaccination: No Review Of Systems Constitutional: Negative for: Fever, Chills Cardiovascular: Negative for: Chest Pain Gastrointestinal: Positive for: Nausea, Vomiting, Abdominal Pain. Negative for : Diarrhea Genitourinary: Negative for: Dysuria, Hematuria Physical Exam - Physical Exam Appears: Non-toxic Skin: Normal Color, Warm, Dry Head: Atraumatic, Normacephalic Eye(s): bilateral: Normal Inspection Oral Mucosa: Moist Neck: Normal, Supple Chest: Symmetrical, No Tenderness Cardiovascular: Rhythm Regular Respiratory: Normal Breath Sounds, No Rales, No Rhonchi, No Wheezing Gastrointestinal/Abdominal: Soft, Tenderness (Mild), No Guarding, No Rebound Neurological/Psych: Oriented x3, Normal Speech, Other (No focal deficits) ED Course And Treatment - Laboratory Results Result Diagrams: 06/07/17 06:32 O2 Sat by Pulse Oximetry: 98 (Room air) Pulse Ox Interpretation: Normal Medical Decision Making Medical Decision Making: Plan: * CMP * UDS * Lipase * CBC * CXR * UA * Pepcid * Morphine * Zofran * IV fluids 2 liters ordered / zofran 4 mg followed by 8 mg/ protonix/ morphine 4 mg/ continuous cardiac montior turned case over to Dr. Comer. Disposition Counseled Patient/Family Regarding: Diagnosis - Disposition Disposition Time: 07:22 Condition: GOOD Forms: [facility] (Georgian) - Clinical Impression Clinical Impression: Pancreatitis, Abdominal pain, Alcohol abuse - Scribe Statement The provider has reviewed the documentation as recorded by the Scribe German Stevens All medical record entries made by the Scribe were at my direction and personally dictated by me. I have reviewed the chart and agree that the record accurately reflects my personal performance of the history, physical exam, medical decision making, and the department course for this patient. I have also personally directed, reviewed, and agree with the discharge instructions and disposition. Physician Patient Turnover Patient Signed Over To: Jacoby Comer Handoff Comments: Pending labs and reevaluation.
[2017-06-07] MEDS ORDERED: Morphine 4 MG/ML VIAL ONE ×2 (06:54→09:44)
[2017-06-07 07:15] LABS: ALB/GLOB RATIO 1.4 (1.0-2.1); ALT/SGPT 53 U/L (9-52); AST/SGOT 71 U/L (14-36); BLOOD UREA NITROGEN 10 mg/dL (7-17); CALCIUM 9.6 mg/dl (8.6-10.4); GFR AFRICAN-AMERICAN > 60; GFR NON-AFRICAN AMERICAN > 60; LIPASE 433 U/L (23-300)
[2017-06-07 07:17] LABS: EOS % 0.1 % (0.0-4.0); LYMPH # 1.7 K/uL (1.0-4.3); LYMPH % 41.1 % (20.0-40.0); MEAN CELL VOLUME 92.9 fL (81.0-99.0); MEAN CORPUSCULAR HEMOGLOBIN 32.2 pg (27.0-31.0); MEAN CORPUSCULAR HGB CONC 34.7 g/dL (33.0-37.0); MEAN PLATELET VOLUME 7.5 fL (7.2-11.7); MONO # 0.3 K/uL (0.0-0.8); MONO % 7.4 % (0.0-10.0); NEUT # 2.1 K/uL (1.8-7.0); NEUT % 50.4 % (50.0-75.0); NRBC % 0.1 % (0.0-2.0); RBC 4.74 Mil/uL (3.80-5.20); WHITE BLOOD COUNT 4.2 K/uL (4.8-10.8)
[2017-06-07 07:23] LABS: HEMOGLOBIN 15.3 g/dL (11.0-16.0)
[2017-06-07 08:39] LABS: SQUAMOUS EPITHIAL 2 /hpf (0-5); URINE BACTERIA RARE (<OCC); URINE BILIRUBIN NEGATIVE (NEGATIVE); URINE BLOOD NEGATIVE (NEGATIVE); URINE CLARITY Hazy (Clear); URINE COLOR Yellow (YELLOW); URINE GLUCOSE (UA) NORMAL (Normal); URINE HYALINE CAST >20 /lpf (0-2); URINE LEUKOCYTE ESTERASE NEG Leu/uL (Negative); URINE NITRATE NEGATIVE (NEGATIVE); URINE PROTEIN 2+ mg/dL (NEGATIVE); URINE UROBILINOGEN NORMAL mg/dL (0.2-1.0)
[2017-06-07 08:42] LABS: HCG,QUALITATIVE URINE NEGATIVE (NEGATIVE)
[2017-06-07 08:44] LABS: BENZODIAZEPINES, UR NEGATIVE (NEGATIVE); PHENCYCLIDINE, UR NEGATIVE (NEGATIVE)
[2017-06-07] MEDS ORDERED: Morphine 4 MG/ML VIAL IV STA (09:17)
[2017-06-07 09:18] LABS: BARBITURATES, UR POSITIVE (NEGATIVE); OPIATES, UR POSITIVE (NEGATIVE)
--- NOTE | 2017-06-07 11:09 | CP.PCM.HP ---
<MichaelaRamiro zafar Khoi - Last Filed: 06/07/17 15:01> History of Present Illness - History of Present Illness History of Present Illness: CC: "My stomach hurts and I am vomitting" HPI: MP is a 31 year old female with a past medical history of hypertension, gastritis, hypertriglyceridemia, and PE (diagnosed 03/2017) who presents today with episodes of vomiting for the past 2 days and RUQ abdominal pain also for the past 2 days. She rates her current pain as a 10/10 and denies any radiation of the pain from the RUQ. She describes the pain as a constant, aching pain. She describes her vomiting as green when it first started 2 days ago and says "there was some blood" in the vomit today. She also reports an episode of vomiting in the ER and describes it as clear. Pt also reports mid back pain on her right side. Pt reports drinking a "bottle of wine" each day for the past 2 days and says she has not been able to eat any solid. She has also not been taking any of her medications besides the omega-3 fatty acid. Currently she reports nausea, vomiting, loose stools, and shortness of breath and denies any chest pain, constipation, dizziness. Patient was last admitted on 05/26/17 and discharged on 05/30/17 with an episode of acute pancreatitis. She also had an episode of acute pancreatitis in 03/2017. Allergies: NKDA Medications: [place] 3 fatty acid, Pradaxa 150mg BID, Lisinopril 5mg PO daily ( Please verify medications with pharmacy, per DC summary from 03/2017, patient should be on Norvasc 10mg daily, Tricor 145mg daily, Gabapentin 100mg TID) Medical History: Hypertension, gastritis, Hypertriglyceridemia, History of PE Surgical History: Denies Social History: Sister is involved in care, Velma Corado ([phone]), Lives alone. Admits to daily consumption of alcohol (2-3 beers, 3-5 shots and wine), and denies former or current use of tobacco and illicit drugs Family History: Denies [employer] Hx: LMP 05/20/17, Uses 3 pads/day, Not currently on control, Not currently sexually active Present on Admission - Present on Admission Any Indicators Present on Admission: No Review of Systems - Constitutional Constitutional: absent: Chills, Fever - EENT Eyes: absent: Change in Vision - Cardiovascular Cardiovascular: absent: Chest Pain - Respiratory Respiratory: Dyspnea. absent: Cough, Wheezing - Gastrointestinal Gastrointestinal: Abdominal Pain, Diarrhea, Vomiting. absent: Constipation - Genitourinary Genitourinary: absent: Dysuria - Neurological Neurological: absent: Dizziness Past Patient History - Infectious Disease Hx of Infectious Diseases: None - Past Social History Smoking Status: Never Smoked - CARDIAC Hx Hypercholesterolemia: Yes Hx Hypertension: Yes - PULMONARY Hx Pulmonary Embolism: Yes (2017) - NEUROLOGICAL Hx Neurological Disorder: No - HEENT Hx HEENT Problems: No - RENAL Hx Chronic Kidney Disease: No - ENDOCRINE/METABOLIC Hx Endocrine Disorders: No - HEMATOLOGICAL/ONCOLOGICAL Hx Blood Disorders: No - INTEGUMENTARY Hx Dermatological Problems: No - MUSCULOSKELETAL/RHEUMATOLOGICAL Hx Musculoskeletal Disorders: No Hx Falls: No - GASTROINTESTINAL Hx Gastritis: Yes - GENITOURINARY/GYNECOLOGICAL Hx Genitourinary Disorders: No - PSYCHIATRIC Hx Substance Use: No - SURGICAL HISTORY Hx Surgeries: No - ANESTHESIA Hx Anesthesia: No Meds Allergies/Adverse Reactions: Allergies Allergy/AdvReac Type Severity Reaction Status Date / Time No Known Allergies Allergy Verified 05/26/17 08:07 Physical Exam - Constitutional Appears: In Acute Distress - Head Exam Head Exam: ATRAUMATIC, NORMAL INSPECTION - Eye Exam Eye Exam: EOMI Pupil Exam: PERRL - ENT Exam ENT Exam: Mucous Membranes Moist - Neck Exam Neck exam: Positive for: Normal Inspection. Negative for: Tenderness - Respiratory Exam Respiratory Exam: Clear to Auscultation Bilateral. absent: Rales, Rhonchi, Wheezes - Cardiovascular Exam Cardiovascular Exam: Tachycardia, REGULAR RHYTHM, +S1, +S2. absent: Bradycardia , Irregular Rhythm, JVD, Systolic Murmur - GI/Abdominal Exam GI & Abdominal Exam: Tenderness Additional comments: Tenderness in RUQ and epigastric region Negative for Solomon's sign Negative for McBurney's sign - Extremities Exam Extremities exam: Positive for: full ROM, normal capillary refill, normal inspection. Negative for: tenderness - Neurological Exam Neurological exam: Alert, Oriented x3 - Psychiatric Exam Psychiatric exam: Anxious - Skin Skin Exam: Intact, Normal Color, Warm Results - Vital Signs Recent Vital Signs: Last Vital Signs Temp 97.5 F L 06/07/17 09:50 Pulse 101 H 06/07/17 09:50 Resp 18 06/07/17 09:50 BP 124/87 06/07/17 09:50 Pulse Ox 97 06/07/17 09:50 - Labs Result Diagrams: 06/07/17 06:32 06/07/17 06:32 Labs: Laboratory Results - last 24 hr 06/07/17 06/07/17 06/07/17 06:32 06:32 06:53 WBC 4.2 L RBC 4.74 Hgb 15.3 D Hct 44.0 MCV 92.9 MCH 32.2 H MCHC 34.7 RDW 13.0 Plt Count 525 H D MPV 7.5 Neut % (Auto) 50.4 Lymph % (Auto) 41.1 H [place] % (Auto) 7.4 Eos % (Auto) 0.1 Baso % (Auto) 1.0 Neut # 2.1 Lymph # 1.7 [place] # 0.3 Eos # 0.0 Baso # 0.0 Sodium 137 Potassium 3.6 Chloride 95 L Carbon Dioxide 14 L Anion Gap 31 H BUN 10 Creatinine 0.7 Est GFR ( Amer) > 60 Est GFR (Non-Af Amer) > 60 Random Glucose 127 H Calcium 9.6 Total Bilirubin 0.7 AST 71 H D ALT 53 H D Alkaline Phosphatase 57 Total Protein 8.7 H Albumin 5.0 D Globulin 3.7 Albumin/Globulin Ratio 1.4 Lipase 433 H 444 H Urine Color Urine Clarity Urine pH Ur Specific [place] Urine Protein Urine Glucose (UA) Urine Ketones Urine Blood Urine Nitrate Urine Bilirubin Urine Urobilinogen Ur Leukocyte Esterase Urine WBC (Auto) Urine RBC (Auto) Ur Squamous Epith Cells Urine Bacteria Hyaline Casts Urine HCG, Qual Urine Opiates Screen Urine Methadone Screen Ur Barbiturates Screen Ur Phencyclidine Scrn Ur Amphetamines Screen U Benzodiazepines Scrn U Oth Cocaine Metabols U Cannabinoids Screen Alcohol, Quantitative 42 H 06/07/17 06/07/17 08:17 08:17 WBC RBC Hgb Hct MCV MCH MCHC RDW Plt Count MPV Neut % (Auto) Lymph % (Auto) [place] % (Auto) Eos % (Auto) Baso % (Auto) Neut # Lymph # [place] # Eos # Baso # Sodium Potassium Chloride Carbon Dioxide Anion Gap BUN Creatinine Est GFR ( Amer) Est GFR (Non-Af Amer) Random Glucose Calcium Total Bilirubin AST ALT Alkaline Phosphatase Total Protein Albumin Globulin Albumin/Globulin Ratio Lipase Urine Color Yellow Urine Clarity Hazy Urine pH 5.0 Ur Specific [place] 1.031 H Urine Protein 2+ H Urine Glucose (UA) Normal Urine Ketones 1+ H Urine Blood Negative Urine Nitrate Negative Urine Bilirubin Negative Urine Urobilinogen Normal Ur Leukocyte Esterase Neg Urine WBC (Auto) 6 H Urine RBC (Auto) 2 Ur Squamous Epith Cells 2 Urine Bacteria Rare Hyaline Casts >20 H Urine HCG, Qual Negative Urine Opiates Screen Positive H Urine Methadone Screen Negative Ur Barbiturates Screen Positive H Ur Phencyclidine Scrn Negative Ur Amphetamines Screen Negative U Benzodiazepines Scrn Negative U Oth Cocaine Metabols Negative U Cannabinoids Screen Negative Alcohol, Quantitative Assessment & Plan (1) Abdominal pain Assessment and Plan: Patient was admitted 10 days ago for a very similar presentation - was diagnosed with pancreatitis (mild), in the past she has been admitted to ICU for pancreatitis - per previous note, patient might have 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 Acute pancreatitis. 2. No evidence of for nephrolithiasis or hydronephrosis. 3. No evidence of colitis or bowel obstruction. 4. Moderate hepatomegaly and fatty liver. Abdominal Ultrasound 05/26/17: 1. Mild hepatomegaly. Diffuse increased echogenicity in the liver may reflect hepatic steatosis however parenchymal infectious/ inflammatory etiologies cannot be entirely excluded. Clinical and laboratory correlation is advised. 2. No cholelithiasis. Mild diffuse dilatation of the common bile duct without sonographic evidence for choledocholithiasis. 3. Mild splenomegaly. CXR 06/07/17: no active disease Meds: Given Morphine 4mg IVP once in ED Lactated Ringers 100cc/hr Diet: NPO ketorolac 15mg IVP Q4H PRN for severe pain (want to avoid opioids if possible) Zofran 4mg Q4H prn nausea Status: Acute Priority: High (2) High anion gap metabolic acidosis Assessment and Plan: Anion gap 31, likely secondary to ethanol With respiratory compensation F/U Lactic Acid Status: Acute (3) Vomiting Assessment and Plan: Given Zofran 2 doses (total 12mg IVP) in ED Status: Acute Priority: High (4) Diarrhea Assessment and Plan: Monitor electrolyes; keep NPO for now Status: Acute Priority: High (5) History of pulmonary embolism Assessment and Plan: Patient was diagnosed with PE in March 2017 This was thought to be secondary to OCP use On Pradaxa 150mg PO BID at home CTA showed no evidence of PE, mild hepatomegaly (see full report) Will start Lovenox 70mg Q12H CT Chest with contrast (Pulmonary Angiogram) 05/26/17: 1. No CT evidence for acute pulmonary embolism. Clear lungs. 2. Mild hepatomegaly. Diffuse low- attenuation in the imaged liver could be related to hepatic steatosis however parenchymal infectious/inflammatory/toxic etiologies cannot be entirely excluded. Clinical and laboratory correlation and follow-up is advised. Status: Chronic Priority: High (6) Substance abuse Assessment and Plan: UDS: (+) for Opiates, (+) for Barbituarates, Alcohol level 42 - however patient states UDS was collected after receiving morphine in ED Banana bag x1 Lactated ringers 100cc/hr Ativan 1mg Q4H prn withdrawal symptoms Ativan 2mg Q2H prn seizure activity CIWA protocol Seizure precautions, Aspiration precautions Status: Acute Priority: High (7) High triglycerides Assessment and Plan: Triglycerides on 05/26/18: 298 Con't home med [place]-3 fatty acid 1g PO QD Status: Chronic Priority: Medium (8) Hypertension Assessment and Plan: BP well controlled Con't home med Lisinopril 5mg PO QD Status: Chronic Priority: Medium (9) Prophylactic measure Assessment and Plan: Protonix 40mg IVP daily Lovenox 70mg Q12H Status: Acute Priority: Low <Edwin Carlin - Last Filed: 06/07/17 17:50> Results - Vital Signs Recent Vital Signs: Last Vital Signs Temp 99.5 F 06/07/17 16:59 Pulse 105 H 06/07/17 16:59 Resp 18 06/07/17 16:59 BP 126/86 06/07/17 16:59 Pulse Ox 100 06/07/17 16:59 - Labs Result Diagrams: 06/07/17 06:32 06/07/17 06:32 Labs: Laboratory Results - last 24 hr 01/10/1806/07/17 06/07/17 06:32 06:32 06:53 WBC 4.2 L RBC 4.74 Hgb 15.3 D Hct 44.0 MCV 92.9 MCH 32.2 H MCHC 34.7 RDW 13.0 Plt Count 525 H D MPV 7.5 Neut % (Auto) 50.4 Lymph % (Auto) 41.1 H [place] % (Auto) 7.4 Eos % (Auto) 0.1 Baso % (Auto) 1.0 Neut # 2.1 Lymph # 1.7 [place] # 0.3 Eos # 0.0 Baso # 0.0 Sodium 137 Potassium 3.6 Chloride 95 L Carbon Dioxide 14 L Anion Gap 31 H BUN 10 Creatinine 0.7 Est GFR ( Amer) > 60 Est GFR (Non-Af Amer) > 60 Random Glucose 127 H Lactic Acid Calcium 9.6 Total Bilirubin 0.7 AST 71 H D ALT 53 H D Alkaline Phosphatase 57 Ammonia Total Protein 8.7 H Albumin 5.0 D Globulin 3.7 Albumin/Globulin Ratio 1.4 Amylase Lipase 433 H 444 H Urine Color Urine Clarity Urine pH Ur Specific [place] Urine Protein Urine Glucose (UA) Urine Ketones Urine Blood Urine Nitrate Urine Bilirubin Urine Urobilinogen Ur Leukocyte Esterase Urine WBC (Auto) Urine RBC (Auto) Ur Squamous Epith Cells Urine Bacteria Hyaline Casts Urine HCG, Qual Urine Opiates Screen Urine Methadone Screen Ur Barbiturates Screen Ur Phencyclidine Scrn Ur Amphetamines Screen U Benzodiazepines Scrn U Oth Cocaine Metabols U Cannabinoids Screen Alcohol, Quantitative 42 H 06/07/17 06/07/17 06/07/17 08:17 08:17 13:37 WBC RBC Hgb Hct MCV MCH MCHC RDW Plt Count MPV Neut % (Auto) Lymph % (Auto) [place] % (Auto) Eos % (Auto) Baso % (Auto) Neut # Lymph # [place] # Eos # Baso # Sodium Potassium Chloride Carbon Dioxide Anion Gap BUN Creatinine Est GFR ( Amer) Est GFR (Non-Af Amer) Random Glucose Lactic Acid Calcium Total Bilirubin AST ALT Alkaline Phosphatase Ammonia Total Protein Albumin Globulin Albumin/Globulin Ratio Amylase 88 Lipase Urine Color Yellow Urine Clarity Hazy Urine pH 5.0 Ur Specific [place] 1.031 H Urine Protein 2+ H Urine Glucose (UA) Normal Urine Ketones 1+ H Urine Blood Negative Urine Nitrate Negative Urine Bilirubin Negative Urine Urobilinogen Normal Ur Leukocyte Esterase Neg Urine WBC (Auto) 6 H Urine RBC (Auto) 2 Ur Squamous Epith Cells 2 Urine Bacteria Rare Hyaline Casts >20 H Urine HCG, Qual Negative Urine Opiates Screen Positive H Urine Methadone Screen Negative Ur Barbiturates Screen Positive H Ur Phencyclidine Scrn Negative Ur Amphetamines Screen Negative U Benzodiazepines Scrn Negative U Oth Cocaine Metabols Negative U Cannabinoids Screen Negative Alcohol, Quantitative 06/07/17 06/07/17 13:37 13:37 WBC RBC Hgb Hct MCV MCH MCHC RDW Plt Count MPV Neut % (Auto) Lymph % (Auto) [place] % (Auto) Eos % (Auto) Baso % (Auto) Neut # Lymph # [place] # Eos # Baso # Sodium Potassium Chloride Carbon Dioxide Anion Gap BUN Creatinine Est GFR ( Amer) Est GFR (Non-Af Amer) Random Glucose Lactic Acid 1.1 Calcium Total Bilirubin AST ALT Alkaline Phosphatase Ammonia < 9 L Total Protein Albumin Globulin Albumin/Globulin Ratio Amylase Lipase Urine Color Urine Clarity Urine pH Ur Specific [place] Urine Protein Urine Glucose (UA) Urine Ketones Urine Blood Urine Nitrate Urine Bilirubin Urine Urobilinogen Ur Leukocyte Esterase Urine WBC (Auto) Urine RBC (Auto) Ur Squamous Epith Cells Urine Bacteria Hyaline Casts Urine HCG, Qual Urine Opiates Screen Urine Methadone Screen Ur Barbiturates Screen Ur Phencyclidine Scrn Ur Amphetamines Screen U Benzodiazepines Scrn U Oth Cocaine Metabols U Cannabinoids Screen Alcohol, Quantitative Attending/Attestation - Attestation I have personally seen and examined this patient.: Yes I have fully participated in the care of the patient.: Yes I have reviewed all pertinent clinical information: Yes Notes (Text): This is a 31 year old AA female with a past medical history of alcohol abuse , narcotic abuse ,hypertension, gastritis and PE (diagnosed 03/2017) came to ER for vomiting and RUQ abdominal pain also for the past 2 days. She rates her current pain as a 10/10 and denies any radiation of the pain from the RUQ. She was discharged after management of acute pancreatitis on 05/30/2017. she had a CT abd during her stay showed acute pancreatitis . She states her pain was getting better after dischare.But last two days she was not feeling good 1.Abdominal pain and vomting Her lipase is coming down she was elvaluated by GI during her stay between 05/26 tp 05/30. Abdominal pain is likely due to alcohol induced gastritis 2.Diarrhea 3.Pulmonary embolism patient was on Pradaxa 150mg po bid we will order lovenox therapeutic dose 4.Hypertension 5.Alcohol abuse and drug abuse Discussed with the resident I agree with the documentation of the assessment and the plan
[2017-06-07] MEDS: Lactated Ringer's 1,000 ML IV SCH ×2 (14:10→22:26)
[2017-06-07] MEDS: Multiple Vitamins Tab PO SCH (14:39)
[2017-06-07] MEDS ORDERED: Multivitamin (MVI) 10 ML, Thiamine 100 MG, Folic Acid 1 MG in Sodium Chloride 0.9% 1,00... IV ONE (15:00)
[2017-06-07] MEDS: Omega-3-Acid Ethyl Esters 1 GM Cap PO SCH (20:00)
[2017-06-07] MEDS ORDERED: Enoxaparin 100 mg Syringe SC SCH (22:00)
[2017-06-07] MEDS: Enoxaparin 80 mg Syringe SC SCH (22:22)
[2017-06-07 23:55] VITALS: RESP 20
[2017-06-08] MEDS: Lactated Ringer's 1,000 ML IV SCH ×3 (02:31→17:54)
[2017-06-08 08:48] LABS: BASO % 0.7 % (0.0-2.0); EOS % 0.3 % (0.0-4.0); LYMPH % 53.7 % (20.0-40.0); MEAN CORPUSCULAR HEMOGLOBIN 31.5 pg (27.0-31.0); MEAN CORPUSCULAR HGB CONC 34.3 g/dL (33.0-37.0); MEAN PLATELET VOLUME 7.8 fL (7.2-11.7); MONO # 0.2 K/uL (0.0-0.8); MONO % 6.3 % (0.0-10.0); NEUT # 1.5 K/uL (1.8-7.0); NRBC % 0.1 % (0.0-2.0); RBC 3.75 Mil/uL (3.80-5.20); RED CELL DISTRIBUTION WIDTH 12.6 % (11.5-14.5); WHITE BLOOD COUNT 3.7 K/uL (4.8-10.8)
[2017-06-08 08:54] LABS: HEMOGLOBIN 11.8 g/dL (11.0-16.0)
[2017-06-08 09:23] LABS: ALB/GLOB RATIO 1.3 (1.0-2.1); ALBUMIN 3.3 g/dL (3.5-5.0); ALT/SGPT 41 U/L (9-52); AST/SGOT 68 U/L (14-36); BLOOD UREA NITROGEN 8 mg/dL (7-17); CALCIUM 8.3 mg/dl (8.6-10.4); GFR AFRICAN-AMERICAN > 60; GFR NON-AFRICAN AMERICAN > 60; MAGNESIUM 1.5 mg/dL (1.6-2.3)
[2017-06-08] MEDS: Multiple Vitamins Tab PO SCH (09:43)
[2017-06-08] MEDS: Omega-3-Acid Ethyl Esters 1 GM Cap PO SCH ×2 (09:47→17:46)
[2017-06-08] MEDS: Enoxaparin 80 mg Syringe SC SCH ×2 (09:48→21:20)
[2017-06-08] MEDS ORDERED: Potassium Chloride 20 mEq ER Tab PO STA (10:11)
[2017-06-08 11:12] LABS: AMYLASE 77 U/L (30-110); LIPASE 418 U/L (23-300)
[2017-06-08] MEDS: Magnesium Sulfate 1 gm in D5W 1 GM/100 ML BAG IVPB SCH ×2 (11:17→11:22)
--- NOTE | 2017-06-08 14:27 | PCM.PSYCH ---
Initial Psychiatric Evaluation - Initial Psychiatric Evaluation Type of Admission: Voluntary Legal Status: Capacity Chief Complaint (in patient's own words): " I had relapse on etoh" History of Present Illness and Precipitating Events: The pt is seen, chart reviewed and case discussed with the primary care team. Consultation was requested for alcohol abuse Patient is a 31 year old female, with the medical history of PE , HTN, Pancreatitis, who is admitted in the hospital for the treatment of Pancreatitis and is consulted to psychiatry for alcohol use. Pt reproted that she had relapse on alcohol 1 1/2 week ago. Pt was minimizing her alcohol use disorder. Patient reported that she started drinking 1 pint of wine daily. Currently she denied any withdrawal symptoms. She denied the CAGE questionnaire. Patient reported that her boyfriend had cheated on her. Additionally stated that she realized that her relationship with her boyfriend is toxic for her physical and mental health. She stated after that discharge she has a plan to stay away from him. Patient verbalized understanding the deleterious side effects of alcohol on her physical health. Patient agreed for alcohol rehabilitation after the discharge. Recommend AA meetings and to find a sponsor to stay sober. The patient denied depressive symptoms including suicidal ideation homicidal ideation intent and plan. Patient denied any bowel suicide attempts. Patient denied any perceptual disturbances. Patient denied manic symptoms, anxiety symptoms. Pt denied legal history. Current Medications: Active Medications Generic Name Dose Route Start Last Admin Trade Name Freq PRN Reason Stop Dose Admin Enoxaparin Sodium 70 mg 06/07/17 22:00 06/08/17 09:48 Lovenox SC 70 mg Q12 MONIKA Administration Lactated Ringer's 1,000 mls @ 100 mls/hr 06/07/17 11:45 06/08/17 09:02 Lactated Ringer's IV Not Given .Q10H MONIKA Lisinopril 5 mg 06/07/17 11:30 06/08/17 09:47 Zestril PO 5 mg DAILY MONIKA Administration Lorazepam 2 mg 06/07/17 11:35 Ativan IVP Q2H PRN Seizure activity Lorazepam 1 mg 06/07/17 11:35 Ativan IVP Q4H PRN Symptoms of alcohol withdrawl Multivitamins 1 tab 06/07/17 11:30 06/08/17 09:43 Hexavitamin PO 1 tab DAILY MONIKA Administration Rkyhi-8-Pliz Ethyl Esters 1 gm 06/07/17 18:00 06/08/17 09:47 Lovaza PO 1 gm BID MONIKA Administration Ondansetron HCl 4 mg 06/07/17 11:32 Zofran Inj IVP Q4H PRN Nausea/Vomiting Pantoprazole Sodium 40 mg 06/08/17 10:00 06/08/17 11:46 Protonix Inj IVP 40 mg DAILY MONIKA Administration Past Psychiatric History - Past Psychiatric History Prior Psychiatric Treatment: denied At what hospital[facility] History of Family Illness: denied Pertinent Medical Hx (Current Medical&Sleep Prob, Allergies): Allergies denied Allergies Allergy/AdvReac Type Severity Reaction Status Date / Time No Known Allergies Allergy Verified 05/26/17 08:07 Multivitamin/Iron/Folic Acid [Centrum Women Tablet] 1 each PO DAILY 05/24/17 Dabigatran [Pradaxa] 150 mg PO BID #60 cap 05/30/17 Lisinopril [Zestril] 5 mg PO DAILY #30 tab 05/30/17 [place]-3 Fatty Acids/Fish Oil [Fish Oil 1,000 mg Capsule] 1,000 mg PO DAILY #30 capsule 05/30/17 Simethicone [Gas Relief 80] 80 mg PO BID PRN #14 ctb 05/30/17 Pantoprazole Sodium [Protonix] 40 mg PO DAILY #30 ect 06/08/17 Pancreatitis, HTN, PE Review of Systems - Review of Systems All systems: reviewed and no additional remarkable complaints except (please see HPI) - Constitutional Constitutional: Other (denied) Mental Status Examination - Personal Presentation Personal Presentation: Looks stated age, Dressed appropriate to season - Affect Affect: Constricted - Motor Activity Motor Activity: Calm - Reliability in Providing Information Reliability in Providing Information: Fair - Speech Speech: Organized - Mood Mood: Neutral - Formal Thought Process Formal Thought Process: No Impairment - Hallucinations/Delusions Hallucinations: Other (denied) Delusions: Other (denied) - Obsessions/Compulsions Obsessions: None Compulsions: None - Cognitive Functions Orientation: Person, Place, Situation, Time Sensorium: Alert Attention/Concentration: Attentive Abstract Thinking: Coy Estimate of Intelligence: Average Judgement: Intact, as evidence by: Good judgement, Intact, as evidence by: Insight regarding need for hospitalization Memory: Recent intact, as evidence by: Ability to recall events of the day - Risk Risk: Other (denied) - Strength & Assets Inventory Strength & Assets Inventory: Intelligence, Family support, Cooperative - Limitations Limitations: Other (chronic alcohol drinking problem) DSM 5 DX - DSM 5 DSM 5 Diagnosis: Alcohol use disorder, severe, dependence. - Recommended/Plan of Treatment Treatment Recommendations and Plan of Treatment: Psychoeducation given regarding etoh use and its deleterious side effects on the physical and mental health. Recommend primary care team to involve social science instructor and give an appointment for the inpatient alcohol rehabilitation management such as; Inpatient rehabilitation [facility], [facility]. Recommend outpatient IOP at [facility] and therapy. Recommend primary care team to consider medications for alcohol sobriety such as acamprosate, naltrexone, gabapentin or Topamax. Encouraged continual family support No medical management at this time Patient information was goal abraded. Primary care team. Projected ELOS: as per primary team Prognosis: guarded Discharge Plan and Discharge Criteria: as per primary care team. Patient is cleared psychiatrically, as patient denied suicidal and homicidal ideation intent or plan. She does not appear internally preoccupied or responding to stimuli and she denied perceptual disturbances. Currently patient is not dangerous to herself or to daughters over the property. - Smoking Cessation Smoking Cessation Initiated: Yes
--- NOTE | 2017-06-08 16:29 | CP.PCM.DIS ---
Provider - Provider Date of Admission: 06/07/17 09:39 Attending physician: Edwin Carlin MD Hospital Course - Lab Results Lab Results: Most Recent Lab Values WBC 3.7 K/uL (4.8-10.8) L 06/08/17 08:38 RBC 3.75 Mil/uL (3.80-5.20) L 06/08/17 08:38 Hgb 11.8 g/dL (11.0-16.0) D 06/08/17 08:38 Hct 34.5 % (34.0-47.0) 06/08/17 08:38 MCV 92.0 fL (81.0-99.0) 06/08/17 08:38 MCH 31.5 pg (27.0-31.0) H 06/08/17 08:38 MCHC 34.3 g/dL (33.0-37.0) 06/08/17 08:38 RDW 12.6 % (11.5-14.5) 06/08/17 08:38 Plt Count 381 K/uL (130-400) D 06/08/17 08:38 MPV 7.8 fL (7.2-11.7) 06/08/17 08:38 Neut % (Auto) 39.0 % (50.0-75.0) L 06/08/17 08:38 Lymph % (Auto) 53.7 % (20.0-40.0) H 06/08/17 08:38 [place] % (Auto) 6.3 % (0.0-10.0) 06/08/17 08:38 Eos % (Auto) 0.3 % (0.0-4.0) 06/08/17 08:38 Baso % (Auto) 0.7 % (0.0-2.0) 06/08/17 08:38 Neut # 1.5 K/uL (1.8-7.0) L 06/08/17 08:38 Lymph # 2.0 K/uL (1.0-4.3) 06/08/17 08:38 [place] # 0.2 K/uL (0.0-0.8) 06/08/17 08:38 Eos # 0.0 K/uL (0.0-0.7) 06/08/17 08:38 Baso # 0.0 K/uL (0.0-0.2) 06/08/17 08:38 Sodium 132 mmol/L (132-148) 06/08/17 08:38 Potassium 3.1 mmol/L (3.6-5.2) L 06/08/17 08:38 Chloride 100 mmol/L (98-107) 06/08/17 08:38 Carbon Dioxide 27 mmol/L (22-30) 06/08/17 08:38 Anion Gap 9 (10-20) L 06/08/17 08:38 BUN 8 mg/dL (7-17) 06/08/17 08:38 Creatinine 0.7 mg/dL (0.7-1.2) 06/08/17 08:38 Est GFR ( Amer) > 60 06/08/17 08:38 Est GFR (Non-Af Amer) > 60 06/08/17 08:38 Random Glucose 87 mg/dL (65-105) 06/08/17 08:38 Lactic Acid 1.1 mmol/L (0.7-2.1) 06/07/17 13:37 Calcium 8.3 mg/dl (8.6-10.4) L 06/08/17 08:38 Magnesium 1.5 mg/dL (1.6-2.3) L 06/08/17 08:38 Total Bilirubin 1.1 mg/dL (0.2-1.3) 06/08/17 08:38 AST 68 U/L (14-36) H 06/08/17 08:38 ALT 41 U/L (9-52) 06/08/17 08:38 Alkaline Phosphatase 35 U/L (38-126) L D 06/08/17 08:38 Ammonia < 9 umol/L (9-33) L 06/07/17 13:37 Total Protein 5.9 g/dL (6.3-8.3) L 06/08/17 08:38 Albumin 3.3 g/dL (3.5-5.0) L D 06/08/17 08:38 Globulin 2.6 gm/dL (2.2-3.9) 06/08/17 08:38 Albumin/Globulin Ratio 1.3 (1.0-2.1) 06/08/17 08:38 Amylase 77 U/L (30-110) 06/08/17 08:38 Lipase 418 U/L (23-300) H 06/08/17 08:38 Urine Color Yellow (YELLOW) 06/07/17 08:17 Urine Clarity Hazy (Clear) 06/07/17 08:17 Urine pH 5.0 (5.0-8.0) 06/07/17 08:17 Ur Specific [place] 1.031 (1.003-1.030) H 06/07/17 08:17 Urine Protein 2+ mg/dL (NEGATIVE) H 06/07/17 08:17 Urine Glucose (UA) Normal mg/dL (Normal) 06/07/17 08:17 Urine Ketones 1+ mg/dL (NEGATIVE) H 06/07/17 08:17 Urine Blood Negative (NEGATIVE) 06/07/17 08:17 Urine Nitrate Negative (NEGATIVE) 06/07/17 08:17 Urine Bilirubin Negative (NEGATIVE) 06/07/17 08:17 Urine Urobilinogen Normal mg/dL (0.2-1.0) 06/07/17 08:17 Ur Leukocyte Esterase Neg Diane/uL (Negative) 06/07/17 08:17 Urine WBC (Auto) 6 /hpf (0-5) H 06/07/17 08:17 Urine RBC (Auto) 2 /hpf (0-3) 06/07/17 08:17 Ur Squamous Epith Cells 2 /hpf (0-5) 06/07/17 08:17 Urine Bacteria Rare (<OCC) 06/07/17 08:17 Hyaline Casts >20 /lpf (0-2) H 06/07/17 08:17 Urine HCG, Qual Negative (NEGATIVE) 06/07/17 08:17 Urine Opiates Screen Positive (NEGATIVE) H 06/07/17 08:17 Urine Methadone Screen Negative (NEGATIVE) 06/07/17 08:17 Ur Barbiturates Screen Positive (NEGATIVE) H 06/07/17 08:17 Ur Phencyclidine Scrn Negative (NEGATIVE) 06/07/17 08:17 Ur Amphetamines Screen Negative (NEGATIVE) 06/07/17 08:17 U Benzodiazepines Scrn Negative (NEGATIVE) 06/07/17 08:17 U Oth Cocaine Metabols Negative (NEGATIVE) 06/07/17 08:17 U Cannabinoids Screen Negative (NEGATIVE) 06/07/17 08:17 Alcohol, Quantitative 42 mg/dl (0-10) H 06/07/17 06:32 Discharge Exam - Head Exam Head Exam: ATRAUMATIC, NORMAL INSPECTION Discharge Plan - Discharge Medications Prescriptions: Pantoprazole Sodium [Protonix] 40 mg PO DAILY #30 ect - Follow Up Plan Condition: FAIR Disposition: HOME/ ROUTINE Additional Instructions: Patient to be discharged home per Dr. Carlin. Patient will need to abstain from drinking alcohol!! Patient will need to see her PMD. She will continue taking Pradaxa as previously prescribed. She will take Protonix 40mg daily for the next 30 days. Patient will return if her symptoms return or worsen.
--- NOTE | 2017-06-08 17:45 | CP.PCM.PN ---
Subjective - Date & Time of Evaluation Date of Evaluation: 06/08/17 Time of Evaluation: 09:30 - Subjective Subjective: Dr. Carlin note: Patient seen and examined in room. She says she came to the hospital because she drank some wine and afterward her stomach started hurting. She said she did not think drinking wine would hurt her stomach however she said the pain afterward was very intense. She currently denies any pain, nausea, or vomiting. Objective - Vital Signs/Intake and Output Vital Signs (last 24 hours): Temp Pulse Resp BP Pulse Ox 98.9 F 86 20 133/93 H 96 06/08/17 15:15 06/08/17 15:15 06/08/17 15:15 06/08/17 15:15 06/08/17 17:06 Intake and Output: 06/08/17 06/08/17 06:59 18:59 Intake Total 1800 Balance 1800 - Medications Medications: Current Medications Enoxaparin Sodium (Lovenox) 70 mg SC Q12 [facility] Last Admin: 06/08/17 09:48 Dose: 70 mg Lactated Ringer's (Lactated Ringer's) 1,000 mls @ 100 mls/hr IV .Q10H [facility] Last Admin: 06/08/17 09:02 Dose: Not Given Lisinopril (Zestril) 5 mg PO DAILY [facility] Last Admin: 06/08/17 09:47 Dose: 5 mg Lorazepam (Ativan) 2 mg IVP Q2H PRN PRN Reason: Seizure activity Lorazepam (Ativan) 1 mg IVP Q4H PRN PRN Reason: Symptoms of alcohol withdrawl Multivitamins (Hexavitamin) 1 tab PO DAILY [facility] Last Admin: 06/08/17 09:43 Dose: 1 tab [id number] Ethyl Esters (Lovaza) 1 gm PO BID [facility] Last Admin: 06/08/17 09:47 Dose: 1 gm Ondansetron HCl (Zofran Inj) 4 mg IVP Q4H PRN PRN Reason: Nausea/Vomiting Pantoprazole Sodium (Protonix Inj) 40 mg IVP DAILY [facility] Last Admin: 06/08/17 11:46 Dose: 40 mg - Labs Labs: 06/08/17 08:38 06/08/17 08:38 - Constitutional Appears: Non-toxic, No Acute Distress - Eye Exam Eye Exam: Normal appearance Pupil Exam: NORMAL ACCOMODATION - Respiratory Exam Respiratory Exam: Clear to Ausculation Bilateral. absent: Rales, Rhonchi, Wheezes - Cardiovascular Exam Cardiovascular Exam: REGULAR RHYTHM, RRR, +S1, +S2. absent: Gallop, Rubs - GI/Abdominal Exam GI & Abdominal Exam: Soft, Normal Bowel Sounds. absent: Tenderness - Extremities Exam Extremities Exam: Normal Inspection. absent: Pedal Edema - Back Exam Back Exam: NORMAL INSPECTION - Neurological Exam Neurological Exam: Alert, Oriented x3 - Psychiatric Exam Psychiatric exam: Normal Affect, Normal Mood - Skin Skin Exam: Normal Color Assessment and Plan - Assessment and Plan (Free Text) Assessment: Assessment and Plan: 06/08: This is a 31 year old female with a history of chronic pancreatitis secondary to etoh abuse in the past with multiple admissions, drug use, and history of PE on Pradaxa. She was admitted for pancreatitis which has resolved. She denies any withdrawl symptoms. Anion gap acidosis is resolved, Vomiting and Diarrhea have resolved, she is tolerating regular diet. We will discharge her in the morning. Per psychiatry reccomendation we have given the patient information about IOP and also inpatient rehab. Replaced her Mag and Potassium. 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 Acute pancreatitis. 2. No evidence of for nephrolithiasis or hydronephrosis. 3. No evidence of colitis or bowel obstruction. 4. Moderate hepatomegaly and fatty liver. Abdominal Ultrasound 05/26/17: 1. Mild hepatomegaly. Diffuse increased echogenicity in the liver may reflect hepatic steatosis however parenchymal infectious/ inflammatory etiologies cannot be entirely excluded. Clinical and laboratory correlation is advised. 2. No cholelithiasis. Mild diffuse dilatation of the common bile duct without sonographic evidence for choledocholithiasis. 3. Mild splenomegaly. CXR 06/07/17: no active disease Meds: Given Morphine 4mg IVP once in ED Lactated Ringers 100cc/hr Diet: NPO ketorolac 15mg IVP Q4H PRN for severe pain (want to avoid opioids if possible) Zofran 4mg Q4H prn nausea Status: Acute Priority: High (2) High anion gap metabolic acidosis-resolved Assessment and Plan: Anion gap 31, likely secondary to ethanol With respiratory compensation F/U Lactic Acid Status: Acute (3) Vomiting-Resolved Assessment and Plan: Given Zofran 2 doses (total 12mg IVP) in ED Status: Acute Priority: High (4) Diarrhea-Resolved Assessment and Plan: Monitor electrolyes; keep NPO for now Status: Acute Priority: High (5) History of pulmonary embolism Assessment and Plan: Patient was diagnosed with PE in March 2017 This was thought to be secondary to OCP use On Pradaxa 150mg PO BID at home CTA showed no evidence of PE, mild hepatomegaly (see full report) Will start Lovenox 70mg Q12H CT Chest with contrast (Pulmonary Angiogram) 05/26/17: 1. No CT evidence for acute pulmonary embolism. Clear lungs. 2. Mild hepatomegaly. Diffuse low- attenuation in the imaged liver could be related to hepatic steatosis however parenchymal infectious/inflammatory/toxic etiologies cannot be entirely excluded. Clinical and laboratory correlation and follow-up is advised. Status: Chronic Priority: High (6) Substance abuse Assessment and Plan: UDS: (+) for Opiates, (+) for Barbituarates, Alcohol level 42 - however patient states UDS was collected after receiving morphine in ED Banana bag x1 Lactated ringers 100cc/hr Ativan 1mg Q4H prn withdrawal symptoms Ativan 2mg Q2H prn seizure activity CIWA protocol Seizure precautions, Aspiration precautions Status: Acute Priority: High (7) High triglycerides Assessment and Plan: Triglycerides on 05/26/18: 298 Con't home med [place]-3 fatty acid 1g PO QD Status: Chronic Priority: Medium (8) Hypertension Assessment and Plan: BP well controlled Con't home med Lisinopril 5mg PO QD Status: Chronic Priority: Medium (9) Prophylactic measure Assessment and Plan: Protonix 40mg IVP daily Lovenox 70mg Q12H Status: Acute Priority: Low
[2017-06-09] MEDS: Lactated Ringer's 1,000 ML IV SCH (05:29)
[2017-06-09 07:35] VITALS: O2SAT 98
--- NOTE | 2017-06-09 07:58 | CP.PCM.DIS ---
Provider - Provider Date of Admission: 06/07/17 09:39 Attending physician: Edwin Carlin MD Consults: psychiatry consult Time Spent in preparation of Discharge (in minutes): 45 Hospital Course - Lab Results Lab Results: Most Recent Lab Values WBC 3.7 K/uL (4.8-10.8) L 06/08/17 08:38 RBC 3.75 Mil/uL (3.80-5.20) L 06/08/17 08:38 Hgb 11.8 g/dL (11.0-16.0) D 06/08/17 08:38 Hct 34.5 % (34.0-47.0) 06/08/17 08:38 MCV 92.0 fL (81.0-99.0) 06/08/17 08:38 MCH 31.5 pg (27.0-31.0) H 06/08/17 08:38 MCHC 34.3 g/dL (33.0-37.0) 06/08/17 08:38 RDW 12.6 % (11.5-14.5) 06/08/17 08:38 Plt Count 381 K/uL (130-400) D 06/08/17 08:38 MPV 7.8 fL (7.2-11.7) 06/08/17 08:38 Neut % (Auto) 39.0 % (50.0-75.0) L 06/08/17 08:38 Lymph % (Auto) 53.7 % (20.0-40.0) H 06/08/17 08:38 [place] % (Auto) 6.3 % (0.0-10.0) 06/08/17 08:38 Eos % (Auto) 0.3 % (0.0-4.0) 06/08/17 08:38 Baso % (Auto) 0.7 % (0.0-2.0) 06/08/17 08:38 Neut # 1.5 K/uL (1.8-7.0) L 06/08/17 08:38 Lymph # 2.0 K/uL (1.0-4.3) 06/08/17 08:38 [place] # 0.2 K/uL (0.0-0.8) 06/08/17 08:38 Eos # 0.0 K/uL (0.0-0.7) 06/08/17 08:38 Baso # 0.0 K/uL (0.0-0.2) 06/08/17 08:38 Sodium 132 mmol/L (132-148) 06/08/17 08:38 Potassium 3.1 mmol/L (3.6-5.2) L 06/08/17 08:38 Chloride 100 mmol/L (98-107) 06/08/17 08:38 Carbon Dioxide 27 mmol/L (22-30) 06/08/17 08:38 Anion Gap 9 (10-20) L 06/08/17 08:38 BUN 8 mg/dL (7-17) 06/08/17 08:38 Creatinine 0.7 mg/dL (0.7-1.2) 06/08/17 08:38 Est GFR ( Amer) > 60 06/08/17 08:38 Est GFR (Non-Af Amer) > 60 06/08/17 08:38 Random Glucose 87 mg/dL (65-105) 06/08/17 08:38 Lactic Acid 1.1 mmol/L (0.7-2.1) 06/07/17 13:37 Calcium 8.3 mg/dl (8.6-10.4) L 06/08/17 08:38 Magnesium 1.5 mg/dL (1.6-2.3) L 06/08/17 08:38 Total Bilirubin 1.1 mg/dL (0.2-1.3) 06/08/17 08:38 AST 68 U/L (14-36) H 06/08/17 08:38 ALT 41 U/L (9-52) 06/08/17 08:38 Alkaline Phosphatase 35 U/L (38-126) L D 06/08/17 08:38 Ammonia < 9 umol/L (9-33) L 06/07/17 13:37 Total Protein 5.9 g/dL (6.3-8.3) L 06/08/17 08:38 Albumin 3.3 g/dL (3.5-5.0) L D 06/08/17 08:38 Globulin 2.6 gm/dL (2.2-3.9) 06/08/17 08:38 Albumin/Globulin Ratio 1.3 (1.0-2.1) 06/08/17 08:38 Amylase 77 U/L (30-110) 06/08/17 08:38 Lipase 418 U/L (23-300) H 06/08/17 08:38 Urine Color Yellow (YELLOW) 06/07/17 08:17 Urine Clarity Hazy (Clear) 06/07/17 08:17 Urine pH 5.0 (5.0-8.0) 06/07/17 08:17 Ur Specific [place] 1.031 (1.003-1.030) H 06/07/17 08:17 Urine Protein 2+ mg/dL (NEGATIVE) H 06/07/17 08:17 Urine Glucose (UA) Normal mg/dL (Normal) 06/07/17 08:17 Urine Ketones 1+ mg/dL (NEGATIVE) H 06/07/17 08:17 Urine Blood Negative (NEGATIVE) 06/07/17 08:17 Urine Nitrate Negative (NEGATIVE) 06/07/17 08:17 Urine Bilirubin Negative (NEGATIVE) 06/07/17 08:17 Urine Urobilinogen Normal mg/dL (0.2-1.0) 06/07/17 08:17 Ur Leukocyte Esterase Neg [place]/uL (Negative) 06/07/17 08:17 Urine WBC (Auto) 6 /hpf (0-5) H 06/07/17 08:17 Urine RBC (Auto) 2 /hpf (0-3) 06/07/17 08:17 Ur Squamous Epith Cells 2 /hpf (0-5) 06/07/17 08:17 Urine Bacteria Rare (<OCC) 06/07/17 08:17 Hyaline Casts >20 /lpf (0-2) H 06/07/17 08:17 Urine HCG, Qual Negative (NEGATIVE) 06/07/17 08:17 Urine Opiates Screen Positive (NEGATIVE) H 06/07/17 08:17 Urine Methadone Screen Negative (NEGATIVE) 06/07/17 08:17 Ur Barbiturates Screen Positive (NEGATIVE) H 06/07/17 08:17 Ur Phencyclidine Scrn Negative (NEGATIVE) 06/07/17 08:17 Ur Amphetamines Screen Negative (NEGATIVE) 06/07/17 08:17 U Benzodiazepines Scrn Negative (NEGATIVE) 06/07/17 08:17 U Oth Cocaine Metabols Negative (NEGATIVE) 06/07/17 08:17 U Cannabinoids Screen Negative (NEGATIVE) 06/07/17 08:17 Alcohol, Quantitative 42 mg/dl (0-10) H 06/07/17 06:32 - Hospital Course Hospital Course: Initial History MP is a 31 year old female with a past medical history of hypertension, gastritis, hypertriglyceridemia, and PE (diagnosed 03/2017) who presents today with episodes of vomiting for the past 2 days and RUQ abdominal pain also for the past 2 days. She rates her current pain as a 10/10 and denies any radiation of the pain from the RUQ. She describes the pain as a constant, aching pain. She describes her vomiting as green when it first started 2 days ago and says "there was some blood" in the vomit today. She also reports an episode of vomiting in the ER and describes it as clear. Pt also reports mid back pain on her right side. Pt reports drinking a "bottle of wine" each day for the past 2 days and says she has not been able to eat any solid. She has also not been taking any of her medications besides the omega-3 fatty acid. Currently she reports nausea, vomiting, loose stools, and shortness of breath and denies any chest pain, constipation, dizziness. Hospital course: Patient is admitted for pancreatitis and alcohol abuse. She improved with IV fluids and pain medication. She had lab work preformed and also a chest x:ray. Patient was seen by a psychiatry as well, she recommends patient go to [facility] or inpatient rehab. Patient was able to tolerate a regular diet with no nausea, vomiting, or pain. Discharge instructions Patient to be discharged home per Dr. Carlin. Patient will need to abstain from drinking alcohol!! Patient will need to see her PMD. She will continue taking Pradaxa as previously prescribed. She will take Protonix 40mg daily for the next 30 days. Patient will return if her symptoms return or worsen. Patient is given information for inpatient rehab and also intense outpatient treatment for alcoholism. Discharge Diagnosis Pancreatitis etoh use disorder h/o PE HTN Discharge Exam - Head Exam Head Exam: ATRAUMATIC, NORMAL INSPECTION - Eye Exam Eye Exam: Normal appearance. absent: Scleral icterus Pupil Exam: NORMAL ACCOMODATION - Respiratory Exam Respiratory Exam: Clear to PA & Lateral, NORMAL BREATHING PATTERN. absent: Rales, Rhonchi, Wheezes - Cardiovascular Exam Cardiovascular Exam: REGULAR RHYTHM, RRR, +S1, +S2. absent: Gallop, Rubs - GI/Abdominal Exam GI & Abdominal Exam: Normal Bowel Sounds. absent: Guarding, Rebound, Soft, Tenderness - Extremities Exam Extremities exam: normal inspection - Back Exam Back exam: NORMAL INSPECTION - Neurological Exam Neurological exam: Oriented x3 - Psychiatric Exam Psychiatric exam: Normal Affect, Normal Mood - Skin Skin Exam: Normal Color, Warm Discharge Plan - Discharge Medications Prescriptions: Pantoprazole Sodium [Protonix] 40 mg PO DAILY #30 ect - Follow Up Plan Condition: FAIR Disposition: HOME/ ROUTINE Instructions: Pantoprazole (By mouth), Dabigatran (By mouth), Pancreatitis (DC) , Abuse of Alcohol (DC) Additional Instructions: Patient to be discharged home per Dr. Carlin. Patient will need to abstain from drinking alcohol!! Patient will need to see her PMD. She will continue taking Pradaxa as previously prescribed. She will take Protonix 40mg daily for the next 30 days. Patient will return if her symptoms return or worsen.
[2017-06-09 08:14] LABS: BASO % 0.5 % (0.0-2.0); EOS % 0.5 % (0.0-4.0); HEMOGLOBIN 11.4 g/dL (11.0-16.0); LYMPH # 1.9 K/uL (1.0-4.3); LYMPH % 51.1 % (20.0-40.0); MEAN CELL VOLUME 92.9 fL (81.0-99.0); MEAN CORPUSCULAR HEMOGLOBIN 32.9 pg (27.0-31.0); MEAN CORPUSCULAR HGB CONC 35.4 g/dL (33.0-37.0); MEAN PLATELET VOLUME 7.9 fL (7.2-11.7); MONO # 0.2 K/uL (0.0-0.8); MONO % 5.8 % (0.0-10.0); NEUT # 1.6 K/uL (1.8-7.0); NEUT % 42.1 % (50.0-75.0); NRBC % 0.1 % (0.0-2.0); RBC 3.48 Mil/uL (3.80-5.20); RED CELL DISTRIBUTION WIDTH 12.3 % (11.5-14.5); WHITE BLOOD COUNT 3.8 K/uL (4.8-10.8)
[2017-06-09 08:37] LABS: ALB/GLOB RATIO 1.2 (1.0-2.1); ALBUMIN 3.2 g/dL (3.5-5.0); ALT/SGPT 39 U/L (9-52); AST/SGOT 58 U/L (14-36); BLOOD UREA NITROGEN 4 mg/dL (7-17); CALCIUM 8.3 mg/dl (8.6-10.4); GFR AFRICAN-AMERICAN > 60; GFR NON-AFRICAN AMERICAN > 60
[2017-06-09 08:46] VITALS: BP 128/89; PULSE 88; TEMP 98.3
[2017-06-09 09:41] LABS: MAGNESIUM 1.7 mg/dL (1.6-2.3)
[2017-06-09] MEDS ORDERED: Potassium Chloride 20 mEq ER Tab PO STA (10:14)
[2017-06-09] MEDS: Multiple Vitamins Tab PO SCH (10:44)
[2017-06-09] MEDS: Enoxaparin 80 mg Syringe SC SCH (10:45)
[2017-06-09] MEDS: Omega-3-Acid Ethyl Esters 1 GM Cap PO SCH (10:45)
== END 2017-06-09 14:45 | disposition home or self-care (01) ==
LOC: C.ER 06:08 → C.9E 09:39 → C.3T 16:52
PROVIDERS: ADMIT Internal Medicine; ATTEND Internal Medicine
DX: K85.90 Acute pancreatitis without necrosis or infection, unspecified (principal); K86.0 Alcohol-induced chronic pancreatitis; R56.9 Unspecified convulsions; Z86.711 Personal history of pulmonary embolism; I10 Essential (primary) hypertension; E87.2 Acidosis; F10.120 Alcohol abuse with intoxication, uncomplicated; Y90.2 Blood alcohol level of 40-59 mg/100 ml
CPT/HCPCS: 36415; 71046; 80053; 80320; 80324; 80345; 80346; 80349; 80353; 80358; 80361; 81001; 82140; 82150; 83605; 83690; 83735; 83992; 84703; 85025; 96361; 96365; 96366; 96372; 96375; 96376; 99285; C9113; G0378; J1650; J1885; J2270; J2405; J3411; J3475; J7040; J7120

== ENCOUNTER 2017-06-17 20:47 | Inpatient (IN) | payer MEDICAID, OTHER ==
[2017-06-17 20:48] VITALS: BMI 23.8
--- NOTE | 2017-06-17 21:11 | C.PDOC ---
History Of Present Illness Patient brought in to the ER by sister after she was found drinking in her bedroom. Patient states she is depressed and notes she has been drinking for the past 3 weeks. Patient has a Hx of PE and pancreatitis, she is a chronic drinker and was admitted on 05/30 for acute pancreatitis, ETOH abuse, and withdrawal. PAtient has had 1 episode of emesis while in the ER, denies suicidal or homicidal ideation. Time Seen by Provider: 06/17/17 21:06 Chief Complaint (Nursing): Substance Abuse History Per: Patient History/Exam Limitations: no limitations Onset/Duration Of Symptoms: Days Current Symptoms Are (Timing): Still Present Suicide/Self Injury Attempted (Context): None Modifying Factor(s): Alcohol Severity: None Pain Scale Rating Of: 0 Associated Symptoms: Depression. denies: Suicidal Thoughts, Other (Homicidal ideation) Involuntary Hold By: None Recent travel outside of the [place]: No Past Medical History Reviewed: Historical Data, Nursing Documentation, Vital Signs Vital Signs: Last Vital Signs Temp 98.3 F 06/17/17 20:55 Pulse 107 H 06/18/17 05:01 Resp 18 06/18/17 05:01 BP 114/77 06/18/17 05:01 Pulse Ox 99 06/18/17 05:06 - Medical History PMH: Gastritis, HTN, Hypercholesterolemia, Pancreatitis, Pulmonary Embolism ( 2017) Family History: States: No Known Family Hx - Social History Hx Tobacco Use: No Hx Alcohol Use: Yes Hx Substance Use: No - Immunization History Hx Tetanus Toxoid Vaccination: Yes Hx Influenza Vaccination: Yes Hx Pneumococcal Vaccination: No Review Of Systems Constitutional: Negative for: Fever, Chills Gastrointestinal: Positive for: Vomiting Psych: Positive for: Depression. Negative for: Suicidal ideation, Other ( Homicidal ideation) Physical Exam - Physical Exam Appears: Non-toxic, Other (Tearful) Skin: Warm, Dry Head: Normacephalic Oral Mucosa: Moist Chest: Symmetrical, No Tenderness Cardiovascular: Rhythm Regular Respiratory: No Rales, No Rhonchi, No Wheezing Gastrointestinal/Abdominal: Soft, Tenderness (Mild mid epigastric), No Guarding , No Rebound Neurological/Psych: Oriented x3 ED Course And Treatment - Laboratory Results Result Diagrams: 06/17/17 22:01 06/17/17 22:01 O2 Sat by Pulse Oximetry: 99 (Room air) Pulse Ox Interpretation: Normal Progress Note: Blood work and urinalysis ordered. Pepcid and IV fluids administered. 1am vitals stable. 4:30 am sleeping. arousable, Disposition Counseled Patient/Family Regarding: Studies Performed, Diagnosis - Disposition Referrals: Ramírez Guevara MD [Staff Provider] - Disposition Time: 21:11 Condition: FAIR Forms: [facility] ([place]) - Clinical Impression Clinical Impression: Alcohol abuse, Alcohol intoxication, Depression - Scribe Statement The provider has reviewed the documentation as recorded by the Scribe German Stevens All medical record entries made by the Scribe were at my direction and personally dictated by me. I have reviewed the chart and agree that the record accurately reflects my personal performance of the history, physical exam, medical decision making, and the department course for this patient. I have also personally directed, reviewed, and agree with the discharge instructions and disposition. Physician Patient Turnover Patient Signed Over To: Angelica Cintron Handoff Comments: pending sobriety and crisis eval
[2017-06-17] MEDS ORDERED: Sodium Chloride 0.9% 1,000 ML IV ONE (21:56)
[2017-06-17] MEDS ORDERED: Sodium Chloride 0.9% 1,000 ML ONE (22:05)
[2017-06-17 22:19] LABS: BASO % 0.5 % (0.0-2.0); EOS % 0.1 % (0.0-4.0); HEMOGLOBIN 15.8 g/dL (11.0-16.0); LYMPH # 3.4 K/uL (1.0-4.3); LYMPH % 65.3 % (20.0-40.0); MEAN CELL VOLUME 91.9 fL (81.0-99.0); MEAN CORPUSCULAR HEMOGLOBIN 31.3 pg (27.0-31.0); MONO # 0.2 K/uL (0.0-0.8); MONO % 3.1 % (0.0-10.0); NEUT # 1.6 K/uL (1.8-7.0); NRBC % 0.3 % (0.0-2.0); RBC 5.06 Mil/uL (3.80-5.20); RED CELL DISTRIBUTION WIDTH 12.6 % (11.5-14.5); WHITE BLOOD COUNT 5.2 K/uL (4.8-10.8)
[2017-06-17 22:21] LABS: HCG,QUALITATIVE URINE NEGATIVE (NEGATIVE)
[2017-06-17 22:27] LABS: SQUAMOUS EPITHIAL 34 /hpf (0-5); URINE BACTERIA MOD (<OCC); URINE BILIRUBIN NEGATIVE (NEGATIVE); URINE BLOOD NEGATIVE (NEGATIVE); URINE CLARITY Hazy (Clear); URINE COLOR Yellow (YELLOW); URINE GLUCOSE (UA) NORMAL (Normal); URINE LEUKOCYTE ESTERASE NEG Leu/uL (Negative); URINE NITRATE NEGATIVE (NEGATIVE); URINE PROTEIN NEGATIVE (NEGATIVE); URINE UROBILINOGEN NORMAL mg/dL (0.2-1.0)
[2017-06-17 22:31] LABS: ALB/GLOB RATIO 1.4 (1.0-2.1); ALBUMIN 4.6 g/dL (3.5-5.0); ALT/SGPT 42 U/L (9-52); AST/SGOT 54 U/L (14-36); BLOOD UREA NITROGEN 9 mg/dL (7-17); CALCIUM 8.9 mg/dl (8.6-10.4); GFR AFRICAN-AMERICAN > 60; GFR NON-AFRICAN AMERICAN > 60
[2017-06-17 22:35] LABS: BARBITURATES, UR NEGATIVE (NEGATIVE); BENZODIAZEPINES, UR NEGATIVE (NEGATIVE); OPIATES, UR NEGATIVE (NEGATIVE); PHENCYCLIDINE, UR NEGATIVE (NEGATIVE)
[2017-06-17 22:41] LABS: LIPASE 328 U/L (23-300)
[2017-06-18] MEDS ORDERED: Potassium Chloride 10 mEq ER Tab PO STA (05:45)
[2017-06-18] MEDS ORDERED: Potassium Chloride 20 mEq ER Tab PO ONE (05:48)
[2017-06-18] MEDS ORDERED: Sodium Chloride 0.9% 1,000 ML IV ONE (07:46)
[2017-06-18 08:46] LABS: ALB/GLOB RATIO 1.3 (1.0-2.1); ALBUMIN 3.8 g/dL (3.5-5.0); ALT/SGPT 35 U/L (9-52); AST/SGOT 57 U/L (14-36); BLOOD UREA NITROGEN 9 mg/dL (7-17); CALCIUM 7.9 mg/dl (8.6-10.4); GFR AFRICAN-AMERICAN > 60; GFR NON-AFRICAN AMERICAN > 60
--- NOTE | 2017-06-18 13:44 | PCM.BM ---
<Sharon Alvarez - Last Filed: 06/18/17 13:43> Treatment Plan Problems - Problems identified on initial assessmt potential for alcohol withdrawals Date Initiated: 06/18/17 Assessment reference: NA Status: Active Treatment assets and liabiliti Patient Assests: adapts well, cooperative, ADL independent, negotiates basic needs Patient Liabilities: live alone, substance abuse - Milieu Protocol Maintain good personal hygiene: daily Encourage regular showers, daily Remind patient to perform daily oral care, daily Assist patient to perform ADL's Conduct patient checks and document Observation sheet: Q15 minutes Maintain personal safety: every shift Educate patient to report safety concerns to staff, every shift Monitor environment for contraband/sharps Medication safety: Monitor for expected outcome, potential side effects: every shift, Assess barriers to learning: every shift, Assess readiness for medication education: every shift <Mark Deshpande - Last Filed: 06/19/17 08:45> - Diagnosis (1) Alcohol use disorder, severe, dependence Status: Acute Interventions: 06/19/17 08:45 * Assess 7x/week regarding severity of withdrawal * Educate regarding risks, benefits, side effects and alternatives of medications * Use Motivational Interviewing for abstinence * Use CBT for relapse prevention * Medication management for withdrawal symptoms * Encourage medication assisted treatment *
[2017-06-18] MEDS: Multiple Vitamins Tab PO SCH (13:54)
[2017-06-18 15:17] LABS: MAGNESIUM 1.4 mg/dL (1.6-2.3)
--- NOTE | 2017-06-18 15:47 | PCM.PSYCH ---
Initial Psychiatric Evaluation - Initial Psychiatric Evaluation Type of Admission: Voluntary Legal Status: Capacity Chief Complaint (in patient's own words): "I want to detox from alcohol" History of Present Illness and Precipitating Events: The pt is seen, chart reviewed, case discussed with staff. Patient is a 31 year old AA female who was admitted for alcohol detox. She is single, no children, and lives with her brother. He is aware of her admission. She currently works in a [email or web address] company. Patient has a 6 year history of alcohol use. She states she drinks 1 pint a day of "brown" liquor. She denies any usage of drugs or tobacco. She denies depression, anxiety, hallucinations, paranoia, and S/I. She has wdw symptoms already She states she has never gone to detox or rehab before. She wish to enter a rehab program after detox. PMH: HTN, blood clots. Psych Hx; Denies Family psych hx: Denies Current Medications: Active Medications Generic Name Dose Route Start Last Admin Trade Name Freq PRN Reason Stop Dose Admin Acetaminophen 650 mg 06/18/17 13:23 Tylenol 325mg Tab PO Q6 PRN Pain, moderate (4-7) Chlordiazepoxide 25 mg 06/18/17 18:00 Librium PO 06/23/17 17:59 Q6 MONIKA Taper Chlordiazepoxide 25 mg 06/18/17 13:20 06/18/17 14:28 Librium PO 25 mg Q4H PRN Administration Alcohol Withdrawal Clonidine HCl 0.1 mg 06/18/17 13:20 Catapres PO Q4H PRN Symptoms of alcohol withdrawl Dabigatran 150 mg 06/18/17 18:00 Pradaxa PO BID MONIKA Folic Acid 1 mg 06/18/17 13:30 06/18/17 13:54 Folic Acid PO Not Given DAILY MONIKA Gabapentin 100 mg 06/18/17 14:00 06/18/17 14:28 Neurontin PO 100 mg TID MONIKA Administration Hydroxyzine HCl 25 mg 06/18/17 13:23 Atarax PO Q4H PRN Anxiety Lisinopril 5 mg 06/18/17 13:30 06/18/17 14:28 Zestril PO 5 mg DAILY MONIKA Administration Multivitamins 1 tab 06/18/17 13:30 06/18/17 13:54 Hexavitamin PO Not Given DAILY MONIKA Ondansetron HCl 4 mg 06/18/17 13:49 06/18/17 14:27 Zofran Tab PO 4 mg Q8 PRN Administration Nausea/Vomiting Promethazine HCl 25 mg 06/18/17 13:49 Phenergan Inj IM QID PRN Nausea/Vomiting, Unable PO Thiamine HCl 100 mg 06/18/17 13:30 06/18/17 13:54 Vitamin B1 Tab PO Not Given DAILY MONIKA Trazodone HCl 50 mg 06/18/17 13:21 Desyrel PO HS PRN Insomnia Past Psychiatric History - Past Psychiatric History Previous Treatment History: None Pertinent Medical Hx (Current Medical&Sleep Prob, Allergies): Allergies Allergy/AdvReac Type Severity Reaction Status Date / Time No Known Allergies Allergy Verified 06/17/17 20:54 Dabigatran [Pradaxa] 150 mg PO BID #60 cap 05/30/17 Lisinopril [Zestril] 5 mg PO DAILY #30 tab 05/30/17 Review of Systems - Review of Systems All systems: reviewed and no additional remarkable complaints except - Neurological Neurological: UNREMARKABLE - Psychiatric Psychiatric: absent: Anxiety, Depression, Hallucinations, Homicidal Ideation, Paranoia, Suicidal Ideation Mental Status Examination - Personal Presentation Personal Presentation: Looks stated age - Affect Affect: Constricted - Motor Activity Motor Activity: Calm - Reliability in Providing Information Reliability in Providing Information: Fair - Speech Speech: Organized - Mood Mood: Neutral - Formal Thought Process Formal Thought Process: No Impairment - Cognitive Functions Orientation: Person, Place, Situation, Time Sensorium: Lethargic Attention/Concentration: Attentive Abstract Thinking: [place] Estimate of Intelligence: Below average Judgement: Intact, as evidence by: Insight regarding need for hospitalization Memory: Recent intact, as evidence by: Ability to recall events of the day, Remote intact, as evidenced by: Abilit to recall sig. life events - Risk Risk: Withdrawal, Diminished functioning - Strength & Assets Inventory Strength & Assets Inventory: Cooperative - Limitations Limitations: Other DSM 5 DX - DSM 5 DSM 5 Diagnosis: Alcohol Use disorder- severe Alcohol withdrawal - Recommended/Plan of Treatment Treatment Recommendations and Plan of Treatment: Librium detox started Pradaxa 150mg started Lisinopril 5mg started As needed medications Gabapentin for augmentation Attend groups and activities Supportive therapy and psychoeducation [place] for abstinence CBT for relapse prevention Encourage MAT Refer to rehab or IOP Attend self-help groups as well 34min Projected ELOS: 4-5 days Prognosis: good w treatment - Smoking Cessation Smoking Cessation Initiated: Yes
[2017-06-19 08:01] LABS: GFR AFRICAN-AMERICAN > 60; GFR NON-AFRICAN AMERICAN > 60
[2017-06-19 08:26] LABS: ALB/GLOB RATIO 1.5 (1.0-2.1); ALBUMIN 3.7 g/dL (3.5-5.0); ALT/SGPT 42 U/L (9-52); AMYLASE 115 U/L (30-110); AST/SGOT 98 U/L (14-36); BLOOD UREA NITROGEN 8 mg/dL (7-17); CALCIUM 8.3 mg/dl (8.6-10.4); LIPASE 692 U/L (23-300); MAGNESIUM 1.3 mg/dL (1.6-2.3)
[2017-06-19] MEDS: Magnesium Oxide 400 mg Tab UD PO SCH ×2 (10:01→18:59)
[2017-06-19] MEDS: Pantoprazole 20 mg EC Tab PO SCH (10:01)
[2017-06-19] MEDS: Multiple Vitamins Tab PO SCH (10:01)
--- NOTE | 2017-06-19 14:05 | CP.PCM.CON ---
<SanfordChiqui ruizNirmal - Last Filed: 06/19/17 19:02> History of Present Illness - History of Present Illness History of Present Illness: Medicine Consult Note: 31 year old female with past medical history of pancreatitis, PE in 03/19, HTN, hypertriglyceridemia, and alcohol use disorder who was brought to the ED by her family for alcohol withdrawal on 06/17, and is now complaining of abdominal pain. Patient states that she had drank almost a half 750-ml bottle of Disha on Saturday, and was found by her brother at her home. On 06/17, patient had alcohol withdrawal symptoms of tremors, diarrhea, and vomiting. Today patient complains of diffused bilateral upper quadrant abdominal pain, that is radiating to her back. She rates the pain at 10/10, and states that eating makes it worse. However patient states she has been eating moderately. Patient denies fevers, chills, headaches, vision changes, chest pain, nausea, vomiting, diarrhea, and constipation. PMD: Dr. Kurtz Past Medical History: pancreatitis, PE in 2016, HTN, hypertriglyceridemia Past Surgical History: denies Medication: Pradaxa, Lisinopril, Lovaza, vitamin tablet, fish oil tablet Family History: significant for pancreatitis Social History: lives with younger brother. 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 6 year history of alcohol use. Patient states she does not drink regularly, but when she does "she cannot stop." Denies tobacco use, or recreational use. Review of Systems - Constitutional Constitutional: absent: Fever, Headache - EENT Eyes: absent: Blurred Vision - Cardiovascular Cardiovascular: absent: Chest Pain, Dyspnea - Respiratory Respiratory: absent: Dyspnea - Gastrointestinal Gastrointestinal: Abdominal Pain. absent: Constipation, Diarrhea, Nausea, Vomiting - Genitourinary Genitourinary: absent: Dysuria, Hematuria - Endocrine Endocrine: absent: Fatigue, Palpitations Past Patient History - Infectious Disease Hx of Infectious Diseases: None - Past Medical History & Family History Past Medical History?: Yes - Past Social History Smoking Status: Never Smoked - CARDIAC Hx Cardiac Disorders: No Hx Hypertension: Yes - PULMONARY Hx Respiratory Disorders: Yes Hx Pulmonary Embolism: Yes Hx Tuberculosis: No - NEUROLOGICAL Hx Neurological Disorder: No HX Cerebrovascular Accident: No Hx Seizures: No - HEENT Hx HEENT Problems: No - RENAL Hx Chronic Kidney Disease: No - ENDOCRINE/METABOLIC Hx Endocrine Disorders: No - HEMATOLOGICAL/ONCOLOGICAL Hx Blood Disorders: No Hx Cancer: No Hx Human Immunodeficiency Virus (HIV): No - INTEGUMENTARY Hx Dermatological Problems: No - MUSCULOSKELETAL/RHEUMATOLOGICAL Hx Musculoskeletal Disorders: No Hx Falls: No - GASTROINTESTINAL Hx Gastrointestinal Disorders: Yes Hx Gastritis: Yes Hx Pancreatitis: Yes - GENITOURINARY/GYNECOLOGICAL Hx Genitourinary Disorders: No Hx Sexually Transmitted Disorders: No - PSYCHIATRIC Hx Substance Use: Yes - SURGICAL HISTORY Hx Surgeries: No Other/Comment: pulm. clots removed? - ANESTHESIA Hx Anesthesia: Yes Hx Anesthesia Reactions: No Hx Malignant Hyperthermia: No Meds Allergies/Adverse Reactions: Allergies Allergy/AdvReac Type Severity Reaction Status Date / Time No Known Allergies Allergy Verified 06/17/17 20:54 - Medications Medications: Current Medications Acetaminophen (Tylenol 325mg Tab) 650 mg PO Q6 PRN PRN Reason: Pain, moderate (4-7) Last Admin: 06/18/17 21:08 Dose: 650 mg Chlordiazepoxide (Librium) 25 mg PO Q6H [facility] PRN Reason: Taper Stop: 06/23/17 17:59 Last Admin: 06/19/17 11:44 Dose: 25 mg Chlordiazepoxide (Librium) 25 mg PO Q4H PRN PRN Reason: Alcohol Withdrawal Last Admin: 06/18/17 14:28 Dose: 25 mg Clonidine HCl (Catapres) 0.1 mg PO Q4H PRN PRN Reason: Symptoms of alcohol withdrawl Dabigatran (Pradaxa) 150 mg PO BID [facility] Last Admin: 06/19/17 10:01 Dose: 150 mg Folic Acid (Folic Acid) 1 mg PO DAILY [facility] Last Admin: 06/19/17 10:01 Dose: 1 mg Gabapentin (Neurontin) 100 mg PO TID [facility] Last Admin: 06/19/17 13:13 Dose: 100 mg Hydroxyzine HCl (Atarax) 25 mg PO Q4H PRN PRN Reason: Anxiety Lisinopril (Zestril) 5 mg PO DAILY [facility] Last Admin: 06/19/17 10:10 Dose: 5 mg Magnesium Oxide (Mag-Ox) 400 mg PO DAILY [facility] Last Admin: 06/19/17 10:01 Dose: 400 mg Multivitamins (Hexavitamin) 1 tab PO DAILY [facility] Last Admin: 06/19/17 10:01 Dose: 1 tab Ondansetron HCl (Zofran Tab) 4 mg PO Q8 PRN PRN Reason: Nausea/Vomiting Last Admin: 06/18/17 14:27 Dose: 4 mg Pantoprazole Sodium (Protonix Ec Tab) 20 mg PO DAILY [facility] Last Admin: 06/19/17 10:01 Dose: 20 mg Promethazine HCl (Phenergan Inj) 25 mg IM QID PRN PRN Reason: Nausea/Vomiting, Unable PO Thiamine HCl (Vitamin B1 Tab) 100 mg PO DAILY [facility] Last Admin: 06/19/17 10:01 Dose: 100 mg Trazodone HCl (Desyrel) 50 mg PO HS PRN PRN Reason: Insomnia Last Admin: 06/18/17 21:08 Dose: 50 mg Physical Exam - Constitutional Appears: No Acute Distress - Head Exam Head Exam: ATRAUMATIC, NORMAL INSPECTION - Eye Exam Eye Exam: EOMI, Normal appearance - ENT Exam ENT Exam: Mucous Membranes Moist - Respiratory Exam Respiratory Exam: Clear to Auscultation Bilateral, NORMAL BREATHING PATTERN - Cardiovascular Exam Cardiovascular Exam: REGULAR RHYTHM, RRR, +S1, +S2 - GI/Abdominal Exam GI & Abdominal Exam: Normal Bowel Sounds, Tenderness (right upper quadrant tenderness and epigastric tenderness ). absent: Distended, Firm, Guarding - Extremities Exam Extremities exam: Positive for: normal inspection. Negative for: pedal edema, tenderness - Neurological Exam Neurological exam: Alert, Oriented x3 - Psychiatric Exam Psychiatric exam: Normal Affect, Normal Mood - Skin Skin Exam: Normal Color, Warm Results - Vital Signs Recent Vital Signs: Last Vital Signs Temp 97.1 F L 06/19/17 12:54 Pulse 86 06/19/17 12:54 Resp 20 06/19/17 12:54 BP 117/86 06/19/17 12:54 Pulse Ox 98 06/19/17 12:54 - Labs Result Diagrams: 06/17/17 22:01 06/19/17 07:02 Labs: Laboratory Results - last 24 hr 06/18/17 06/19/17 14:57 07:02 Sodium 131 L Potassium 3.3 L Chloride 95 L Carbon Dioxide 25 Anion Gap 15 BUN 8 Creatinine 0.8 Est GFR ( Amer) > 60 Est GFR (Non-Af Amer) > 60 Random Glucose 144 H Calcium 8.3 L Magnesium 1.4 L 1.3 L Total Bilirubin 1.1 AST 98 H D ALT 42 Alkaline Phosphatase 41 Total Protein 6.2 L Albumin 3.7 Globulin 2.4 Albumin/Globulin Ratio 1.5 Amylase 191 H D 115 H D Lipase 473 H 692 H TSH 3rd Generation 5.72 H Assessment & Plan - Assessment and Plan (Free Text) Assessment: 31 year old female with past medical history of pancreatitis, PE in 03/19, HTN, hypertriglyceridemia, and alcohol use disorder who was brought to the ED by her family for alcohol withdrawal on 06/17, and is now complaining of abdominal pain. 1. Acute pancreatitis secondary to alcohol use - Amylase 115, Lipase 692 - Whiteside's score- 0 - Imaging * CT abd/pelvis w/ contrast 05/27/17- Acute pancreatitis. No evidence of nephrolithiasis or hydronephrosis. No evidence of colitis or bowel obstruction. Moderate hepatomegaly and fatty liver. - Clear liquid diet - Tylenol 650 mg po q6 prn for pain - GI consult - monitor CBC, CMP, LFTs - Advice on alcohol cessation 2. Alcohol use disorder - Continue Librium taper and alcohol withdrawal protocol as per psychiatry 3. History of PE - Continue Pradaxa 150 mg po BID until 08/18 (6 months after PE) 4. History of HTN - Continue Lisinopril 5 mg po daily 5. History of hypertriglyceridemia - Continue Lovaza 1 gm po bid - f/u lipid panel 6. Hypothyroidism - TSH 5.72 - f/u Free T4 - Start Levothyroxine if required 7.) Prophylaxis - Pantoprazole 20mg PO daily Case discussed with Dr. Jaxon Sanford PGY-1 <Nina Coates V - Last Filed: 06/21/17 01:11> Meds - Medications Medications: Current Medications Acetaminophen (Tylenol 325mg Tab) 650 mg PO Q6 PRN PRN Reason: Pain, moderate (4-7) Last Admin: 06/18/17 21:08 Dose: 650 mg Chlordiazepoxide (Librium) 25 mg PO Q8H [facility] PRN Reason: Taper Stop: 06/23/17 17:59 Last Admin: 06/20/17 17:05 Dose: 25 mg Chlordiazepoxide (Librium) 25 mg PO Q4H PRN PRN Reason: Alcohol Withdrawal Last Admin: 06/20/17 23:20 Dose: 25 mg Clonidine HCl (Catapres) 0.1 mg PO Q4H PRN PRN Reason: Symptoms of alcohol withdrawl Dabigatran (Pradaxa) 150 mg PO BID [facility] Last Admin: 06/20/17 17:06 Dose: 150 mg Folic Acid (Folic Acid) 1 mg PO DAILY [facility] Last Admin: 06/20/17 09:46 Dose: 1 mg Gabapentin (Neurontin) 100 mg PO TID [facility] Last Admin: 06/20/17 17:05 Dose: 100 mg Hydroxyzine HCl (Atarax) 25 mg PO Q4H PRN PRN Reason: Anxiety Lisinopril (Zestril) 5 mg PO DAILY [facility] Last Admin: 06/20/17 09:46 Dose: 5 mg Magnesium Oxide (Mag-Ox) 400 mg PO BID [facility] Last Admin: 06/20/17 17:05 Dose: 400 mg Multivitamins (Hexavitamin) 1 tab PO DAILY [facility] Last Admin: 06/20/17 09:45 Dose: 1 tab Ixbev-3-Owvg Ethyl Esters (Lovaza) 1 gm PO BID [facility] Last Admin: 06/20/17 17:06 Dose: 1 gm Ondansetron HCl (Zofran Tab) 4 mg PO Q8 PRN PRN Reason: Nausea/Vomiting Last Admin: 06/18/17 14:27 Dose: 4 mg Pantoprazole Sodium (Protonix Ec Tab) 20 mg PO DAILY [facility] Last Admin: 06/20/17 09:46 Dose: 20 mg Potassium Chloride (K-Dur 20 Meq Er Tab) 40 meq PO DAILY [facility] Last Admin: 06/20/17 09:54 Dose: Not Given Promethazine HCl (Phenergan Inj) 25 mg IM QID PRN PRN Reason: Nausea/Vomiting, Unable PO Thiamine HCl (Vitamin B1 Tab) 100 mg PO DAILY [facility] Last Admin: 06/20/17 09:46 Dose: 100 mg Trazodone HCl (Desyrel) 50 mg PO HS PRN PRN Reason: Insomnia Last Admin: 06/20/17 21:24 Dose: 50 mg Results - Vital Signs Recent Vital Signs: Last Vital Signs Temp 97.8 F 06/20/17 20:01 Pulse 108 H 06/20/17 20:01 Resp 18 06/20/17 20:01 BP 101/70 06/20/17 15:37 Pulse Ox 99 06/20/17 20:01 - Labs Result Diagrams: 06/20/17 07:50 06/20/17 07:50 Labs: Laboratory Results - last 24 hr 06/20/17 06/20/17 06/20/17 07:50 07:50 07:50 WBC 3.9 L RBC 4.10 Hgb 13.0 D Hct 37.8 MCV 92.2 MCH 31.7 H MCHC 34.4 RDW 12.9 Plt Count 228 D MPV 8.4 Neut % (Auto) 58.6 Lymph % (Auto) 35.1 [place] % (Auto) 5.5 Eos % (Auto) 0.4 Baso % (Auto) 0.4 Neut # 2.3 Lymph # 1.4 [place] # 0.2 Eos # 0.0 Baso # 0.0 Sodium 134 Potassium 4.0 Chloride 98 Carbon Dioxide 27 Anion Gap 13 BUN 5 L Creatinine 0.7 Est GFR ( Amer) > 60 Est GFR (Non-Af Amer) > 60 Random Glucose 107 H Calcium 9.5 Phosphorus 2.2 L Magnesium 1.5 L Total Bilirubin 0.6 AST 144 H D ALT 67 H D Alkaline Phosphatase 39 Total Protein 6.7 Albumin 4.0 Globulin 2.7 Albumin/Globulin Ratio 1.5 Triglycerides Cholesterol LDL Cholesterol Direct HDL Cholesterol Amylase 113 H Lipase 697 H Free T4 1.04 06/20/17 16:47 WBC RBC Hgb Hct MCV MCH MCHC RDW Plt Count MPV Neut % (Auto) Lymph % (Auto) [place] % (Auto) Eos % (Auto) Baso % (Auto) Neut # Lymph # [place] # Eos # Baso # Sodium Potassium Chloride Carbon Dioxide Anion Gap BUN Creatinine Est GFR ( Amer) Est GFR (Non-Af Amer) Random Glucose Calcium Phosphorus Magnesium Total Bilirubin AST ALT Alkaline Phosphatase Total Protein Albumin Globulin Albumin/Globulin Ratio Triglycerides 121 D Cholesterol 160 LDL Cholesterol Direct 65 HDL Cholesterol 68 Amylase Lipase Free T4 Attending/Attestation - Attestation I have personally seen and examined this patient.: Yes I have fully participated in the care of the patient.: Yes I have reviewed all pertinent clinical information: Yes Notes (Text): This is late computer entry for 06/19/17. Patient seen, examined, and case discussed with day-time resident. I am very well familiar with Ms. Corado since her first admission in March 2017, as well as her admission on 05/26/17 as well for acute pancreatitis, diagnoses of her pulmonary embolus, and elevated triglycerides. I am also aware of patient's alcohol abuse as well; which has been evident in her prior admissions as well. Patient recognizes me as well and is aware of her case as well. psychiatry has asked for medical consult given elevated lipase and amylase levels. Since her last admission which was about 2 weeks ago, patient reports she has broken up with her boyfriend of 8 years officially, and went to the liquor store for a bottle of [place] to numb herself. I have asked her if she was trying harm herself but she denies any intent to; however she clearly states her alcoholism will harm her overrall life which is true. Patient was discovered by her little brother who lives with her and brought into the hospital. Patient reports she has mild abdominal pain/back pain and reports early satiety but can eat. Patient reports she was afraid to tell her family about her relapse given their dislike of her boyfriend as well as they too know her difficulty with alcoholism. Patient had plans to setup for [facility] since last admission and was provided information for rehab but has not gone yet. Patient reports depressive symptoms which prompts her alcohol use. It was about 3 years ago, when she received phone call about her brother's murder and about 1.5 years ago about this week, when her sister during hospitalization, she reports she took care of her sister like a mother. She reports there have been memories this week which make it difficult for her. Patient also reports and echoes the risk of bleeding given the alcohol levels. She is currently on Pradaxa for PE. I have seen patient and examined her in her room. She has very mild epigastric pain and back pain in contrast to her prior admissions. I would suggest to scale back diet to liquid and see how she tolerates her. Her last CT scan was about 2 weeks ago. Assessment/Plan 1) Acute pancreatitis secondary to alcohol use - Amylase 115, Lipase 692 - Alphonso's score- 0 - Imaging * CT abd/pelvis w/ contrast 05/27/17- Acute pancreatitis. No evidence of nephrolithiasis or hydronephrosis. No evidence of colitis or bowel obstruction. Moderate hepatomegaly and fatty liver. - Clear liquid diet - Tylenol 650 mg po q6 prn for pain - GI consult - monitor CBC, CMP, LFTs - Advice on alcohol cessation 2. Alcohol use disorder - Continue Librium taper and alcohol withdrawal protocol as per psychiatry 3. History of PE - Continue Pradaxa 150 mg po BID until 08/18 (6 months after PE) 4. History of HTN - Continue Lisinopril 5 mg po daily 5. History of hypertriglyceridemia - Continue Lovaza 1 gm po bid - f/u lipid panel in AM 6. Hypothyroidism - TSH 5.72 - f/u Free T4 - Start Levothyroxine if required 7.) Prophylaxis - Pantoprazole 20mg PO daily
--- NOTE | 2017-06-19 14:43 | PCM.PYCHPN ---
Psychiatric Progress Note - Psychiatric Progress Note Patient seen today, length of contact: 16 min Patient Chief Complaint: "I feel much better today" Problems Identified/Issues Discussed: The pt is seen, chart reviewed, case discussed with staff. Patient says she feels much better today. Discussed with patient that her lipase levels were elevated. She states she only has mild abdominal pain at this time. The pt is compliant with medications and reports no side-effects. Symptoms are improving but needs more time to stabilize. After care discussed, support and psychoeducation given. Medication Change: Yes Medical Record Reviewed: Yes Mental Status Examination - Cognitive Function Orientation: Person, Place, Situation, Time Memory: Intact Attention: WNL Concentration: WNL Association: WNL Fund of Knowledge: WNL - Mood Mood: Neutral - Affect Affect: Constricted - Speech Speech: Appropriate - Formal Thought Process Formal Thought Process: No Impairment - Suicidal Ideation Suicidal Ideation: No - Homicidal Ideation Homicidal Ideation: No Goal/Treatment Plan - Goal/Treatment Plan Need for Continued Stay: Discharge may exacerbated symptoms, Severe functional impairment Progress Toward Problem(s) and Goals/Treatment Plan: Librium detox started Pradaxa 150mg started Lisinopril 5mg started As needed medications Gabapentin for augmentation Attend groups and activities Supportive therapy and psychoeducation [place] for abstinence CBT for relapse prevention Encourage MAT Refer to rehab or IOP Attend self-help groups as well
[2017-06-19] MEDS: Potassium Chloride 20 mEq ER Tab PO SCH (17:51)
[2017-06-19] MEDS: Omega-3-Acid Ethyl Esters 1 GM Cap PO SCH (18:59)
[2017-06-20 08:07] LABS: BASO % 0.4 % (0.0-2.0); EOS % 0.4 % (0.0-4.0); LYMPH # 1.4 K/uL (1.0-4.3); LYMPH % 35.1 % (20.0-40.0); MEAN CELL VOLUME 92.2 fL (81.0-99.0); MEAN CORPUSCULAR HEMOGLOBIN 31.7 pg (27.0-31.0); MEAN CORPUSCULAR HGB CONC 34.4 g/dL (33.0-37.0); MEAN PLATELET VOLUME 8.4 fL (7.2-11.7); MONO # 0.2 K/uL (0.0-0.8); MONO % 5.5 % (0.0-10.0); NEUT # 2.3 K/uL (1.8-7.0); NEUT % 58.6 % (50.0-75.0); NRBC % 0.1 % (0.0-2.0); RBC 4.1 Mil/uL (3.80-5.20); RED CELL DISTRIBUTION WIDTH 12.9 % (11.5-14.5); WHITE BLOOD COUNT 3.9 K/uL (4.8-10.8)
[2017-06-20 08:28] LABS: ALB/GLOB RATIO 1.5 (1.0-2.1); ALT/SGPT 67 U/L (9-52); AST/SGOT 144 U/L (14-36); BLOOD UREA NITROGEN 5 mg/dL (7-17); CALCIUM 9.5 mg/dl (8.6-10.4); GFR AFRICAN-AMERICAN > 60; GFR NON-AFRICAN AMERICAN > 60; MAGNESIUM 1.5 mg/dL (1.6-2.3)
[2017-06-20 09:14] LABS: AMYLASE 113 U/L (30-110); LIPASE 697 U/L (23-300)
[2017-06-20] MEDS: Multiple Vitamins Tab PO SCH (09:45)
[2017-06-20] MEDS: Pantoprazole 20 mg EC Tab PO SCH (09:46)
[2017-06-20] MEDS: Magnesium Oxide 400 mg Tab UD PO SCH ×3 (09:46→17:05)
[2017-06-20] MEDS: Omega-3-Acid Ethyl Esters 1 GM Cap PO SCH ×2 (09:46→17:06)
[2017-06-20] MEDS: Potassium Chloride 20 mEq ER Tab PO SCH (09:54)
--- NOTE | 2017-06-20 13:07 | PCM.PYCHPN ---
Psychiatric Progress Note - Psychiatric Progress Note Patient seen today, length of contact: 16 min Patient Chief Complaint: "I feel great" Problems Identified/Issues Discussed: The pt is seen, chart reviewed, case discussed with staff. Patient is in great spirits. States she is happy to be here and get better The pt is compliant with medications and reports no side-effects. Symptoms are improving but needs more time to stabilize. After care discussed, support and psychoeducation given. Medication Change: Yes (librium taper) Medical Record Reviewed: Yes Mental Status Examination - Cognitive Function Orientation: Person, Place, Situation, Time Memory: Intact Attention: WNL Concentration: WNL Association: [facility] Fund of Knowledge: WN - Mood Mood: Neutral - Affect Affect: Broad - Speech Speech: Appropriate - Formal Thought Process Formal Thought Process: No Impairment - Suicidal Ideation Suicidal Ideation: No - Homicidal Ideation Homicidal Ideation: No Goal/Treatment Plan - Goal/Treatment Plan Need for Continued Stay: Discharge may exacerbated symptoms, Severe functional impairment Progress Toward Problem(s) and Goals/Treatment Plan: Librium detox started Pradaxa 150mg started Lisinopril 5mg started Magnesium 400mg started Will track amylase and lipase As needed medications Gabapentin for augmentation Attend groups and activities Supportive therapy and psychoeducation [place] for abstinence CBT for relapse prevention Encourage MAT Refer to rehab or IOP Attend self-help groups as well
--- NOTE | 2017-06-20 13:47 | CP.PCM.PN ---
<Lonny Krishnamurthy - Last Filed: 06/20/17 18:10> Subjective - Date & Time of Evaluation Date of Evaluation: 06/20/17 Time of Evaluation: 09:46 - Subjective Subjective: Dr. Coates Hospitalist Service, Lonny Krishnamurthy, Counter Stacker- PGY- 1 Patient was seen and examined at bedside. Per nursing no acute events occurred overnight. Today the patient reports feeling better. The patient is tolerating diet with no complaints. The patient does report a little epigastric discomfort. The patient denies any chest pain, shortness of breath, chills, nausea, vomiting, dizziness, changes in vision, headaches, or any other complaints. Objective - Vital Signs/Intake and Output Vital Signs (last 24 hours): Temp Pulse Resp BP Pulse Ox 98.4 F 95 H 20 106/76 100 06/20/17 09:44 06/20/17 09:44 06/20/17 09:44 06/20/17 09:44 06/20/17 09:44 - Medications Medications: Current Medications Acetaminophen (Tylenol 325mg Tab) 650 mg PO Q6 PRN PRN Reason: Pain, moderate (4-7) Last Admin: 06/18/17 21:08 Dose: 650 mg Chlordiazepoxide (Librium) 25 mg PO Q6H [facility] PRN Reason: Taper Stop: 06/23/17 17:59 Last Admin: 06/20/17 11:47 Dose: 25 mg Chlordiazepoxide (Librium) 25 mg PO Q4H PRN PRN Reason: Alcohol Withdrawal Last Admin: 06/19/17 22:28 Dose: 25 mg Clonidine HCl (Catapres) 0.1 mg PO Q4H PRN PRN Reason: Symptoms of alcohol withdrawl Dabigatran (Pradaxa) 150 mg PO BID [facility] Last Admin: 06/20/17 09:45 Dose: 150 mg Folic Acid (Folic Acid) 1 mg PO DAILY [facility] Last Admin: 06/20/17 09:46 Dose: 1 mg Gabapentin (Neurontin) 100 mg PO TID [facility] Last Admin: 06/20/17 09:45 Dose: 100 mg Hydroxyzine HCl (Atarax) 25 mg PO Q4H PRN PRN Reason: Anxiety Lisinopril (Zestril) 5 mg PO DAILY [facility] Last Admin: 06/20/17 09:46 Dose: 5 mg Magnesium Oxide (Mag-Ox) 400 mg PO BID [facility] Last Admin: 06/20/17 10:58 Dose: Not Given Multivitamins (Hexavitamin) 1 tab PO DAILY [facility] Last Admin: 06/20/17 09:45 Dose: 1 tab [id number] Ethyl Esters (Lovaza) 1 gm PO BID [facility] Last Admin: 06/20/17 09:46 Dose: 1 gm Ondansetron HCl (Zofran Tab) 4 mg PO Q8 PRN PRN Reason: Nausea/Vomiting Last Admin: 06/18/17 14:27 Dose: 4 mg Pantoprazole Sodium (Protonix Ec Tab) 20 mg PO DAILY [facility] Last Admin: 06/20/17 09:46 Dose: 20 mg Potassium Chloride (K-Dur 20 Meq Er Tab) 40 meq PO DAILY [facility] Last Admin: 06/20/17 09:54 Dose: Not Given Promethazine HCl (Phenergan Inj) 25 mg IM QID PRN PRN Reason: Nausea/Vomiting, Unable PO Thiamine HCl (Vitamin B1 Tab) 100 mg PO DAILY [facility] Last Admin: 06/20/17 09:46 Dose: 100 mg Trazodone HCl (Desyrel) 50 mg PO HS PRN PRN Reason: Insomnia Last Admin: 06/19/17 22:28 Dose: 50 mg - Labs Labs: 06/20/17 07:50 06/20/17 07:50 - Constitutional Appears: Non-toxic - Head Exam Head Exam: ATRAUMATIC, NORMAL INSPECTION, NORMOCEPHALIC - Eye Exam Eye Exam: EOMI, Normal appearance, PERRL Pupil Exam: NORMAL ACCOMODATION, PERRL. absent: Irregular - ENT Exam ENT Exam: Mucous Membranes Moist, Normal Exam, Normal Oropharynx - Neck Exam Neck Exam: Normal Inspection. absent: Lymphadenopathy, Thyromegaly - Respiratory Exam Respiratory Exam: Clear to Ausculation Bilateral, NORMAL BREATHING PATTERN. absent: Wheezes - Cardiovascular Exam Cardiovascular Exam: REGULAR RHYTHM, +S1, +S2 - GI/Abdominal Exam GI & Abdominal Exam: Soft, Normal Bowel Sounds Additional comments: Epigastric tenderness - Extremities Exam Extremities Exam: Full ROM. absent: Joint Swelling, Pedal Edema - Back Exam Back Exam: NORMAL INSPECTION. absent: CVA tenderness (L), CVA tenderness (R), paraspinal tenderness - Neurological Exam Neurological Exam: Alert, Awake, CN II-XII Intact, Normal Gait, Oriented x3 - Psychiatric Exam Psychiatric exam: Normal Affect, Normal Mood - Skin Skin Exam: Dry, Intact, Normal Color, Warm Assessment and Plan - Assessment and Plan (Free Text) Assessment: 31 year old female with past medical history of pancreatitis, PE in 03/19, HTN, hypertriglyceridemia, and alcohol use disorder who was brought to the ED by her family for alcohol withdrawal on 06/17, and is now complaining of abdominal pain. Plan: 1. Acute pancreatitis secondary to alcohol use - Amylase 113, Lipase 697 - Wells's score- 0 - Imaging * CT abd/pelvis w/ contrast 05/27/17- Acute pancreatitis. No evidence of nephrolithiasis or hydronephrosis. No evidence of colitis or bowel obstruction. Moderate hepatomegaly and fatty liver. - Continue Clear liquid diet. Will advance as tolerated. - Tylenol 650 mg po q6 prn for pain - consult monitor CBC, CMP, LFTs - Advice on alcohol cessation 2. Alcohol use disorder - Continue Librium taper and alcohol withdrawal protocol as per psychiatry 3. History of PE - Continue Pradaxa 150 mg po BID until 08/18 (6 months after PE) 4. History of HTN - Continue Lisinopril 5 mg po daily -Continue Clonidine .1mg PO Q4H PRN 5. History of hypertriglyceridemia - Continue Lovaza 1 gm po bid - f/u lipid panel 6. Subclnical Hypothyroidism - TSH 5.72 - Free T4 1.04 - Medication not needed at this time. 7.) Prophylaxis - Pantoprazole 20mg PO daily <Nina Coates V - Last Filed: 06/21/17 00:55> Objective - Vital Signs/Intake and Output Vital Signs (last 24 hours): Temp Pulse Resp BP Pulse Ox 97.8 F 108 H 18 101/70 99 06/20/17 20:01 06/20/17 20:01 06/20/17 20:01 06/20/17 15:37 06/20/17 20:01 - Medications Medications: Current Medications Acetaminophen (Tylenol 325mg Tab) 650 mg PO Q6 PRN PRN Reason: Pain, moderate (4-7) Last Admin: 06/18/17 21:08 Dose: 650 mg Chlordiazepoxide (Librium) 25 mg PO Q8H [facility] PRN Reason: Taper Stop: 06/23/17 17:59 Last Admin: 06/20/17 17:05 Dose: 25 mg Chlordiazepoxide (Librium) 25 mg PO Q4H PRN PRN Reason: Alcohol Withdrawal Last Admin: 06/20/17 23:20 Dose: 25 mg Clonidine HCl (Catapres) 0.1 mg PO Q4H PRN PRN Reason: Symptoms of alcohol withdrawl Dabigatran (Pradaxa) 150 mg PO BID [facility] Last Admin: 06/20/17 17:06 Dose: 150 mg Folic Acid (Folic Acid) 1 mg PO DAILY [facility] Last Admin: 06/20/17 09:46 Dose: 1 mg Gabapentin (Neurontin) 100 mg PO TID [facility] Last Admin: 06/20/17 17:05 Dose: 100 mg Hydroxyzine HCl (Atarax) 25 mg PO Q4H PRN PRN Reason: Anxiety Lisinopril (Zestril) 5 mg PO DAILY [facility] Last Admin: 06/20/17 09:46 Dose: 5 mg Magnesium Oxide (Mag-Ox) 400 mg PO BID [facility] Last Admin: 06/20/17 17:05 Dose: 400 mg Multivitamins (Hexavitamin) 1 tab PO DAILY [facility] Last Admin: 06/20/17 09:45 Dose: 1 tab [id number] Ethyl Esters (Lovaza) 1 gm PO BID [facility] Last Admin: 06/20/17 17:06 Dose: 1 gm Ondansetron HCl (Zofran Tab) 4 mg PO Q8 PRN PRN Reason: Nausea/Vomiting Last Admin: 06/18/17 14:27 Dose: 4 mg Pantoprazole Sodium (Protonix Ec Tab) 20 mg PO DAILY [facility] Last Admin: 06/20/17 09:46 Dose: 20 mg Potassium Chloride (K-Dur 20 Meq Er Tab) 40 meq PO DAILY [facility] Last Admin: 06/20/17 09:54 Dose: Not Given Promethazine HCl (Phenergan Inj) 25 mg IM QID PRN PRN Reason: Nausea/Vomiting, Unable PO Thiamine HCl (Vitamin B1 Tab) 100 mg PO DAILY [facility] Last Admin: 06/20/17 09:46 Dose: 100 mg Trazodone HCl (Desyrel) 50 mg PO HS PRN PRN Reason: Insomnia Last Admin: 06/20/17 21:24 Dose: 50 mg - Labs Labs: 06/20/17 07:50 06/20/17 07:50 Attending/Attestation - Attestation I have personally seen and examined this patient.: Yes I have fully participated in the care of the patient.: Yes I have reviewed all pertinent clinical information, including history, physical exam and plan: Yes Notes (Text): This is late computer entry for 06/20/17. Patient seen, examined and case discussed with day-time resident. patient seen this morning following breakfast. She is drinking juice and eating inside portions of sandwich. Patient reports she is feeling alot better. Abdominal pain has resolved and back pain has resolved. I have Ms. Corado in prior admissions since her first one in March 2017; her symptoms are improving. She is fully aware of the effects of alcohol use on her body and mindset. She reports she gotten in touch with her sponsor to help to maintain her sobriety and she is aware that her tejeda with alcoholism is a life=long process. She will continue her medications for hypertriglyceridema, pulmonary embolus, and has had multiple hospitalizations of pancreatitis which have been more severe in nature in the past. patient will be eligible for repeat CT scan in about 6 weeks earliest since her last one to monitor her symptoms and prevent formation of pseudocyts. Will monitor patient for one more day. If she continues to tolerate diet, will sign off tomorrow. Patient vocalizes and understands her tejeda with alcoholism is the reason for her pancreatitis, in light of family hx of pancreatitis and she cannot rely on alcohol as way of handling her problems emotionally.
[2017-06-20] MEDS ORDERED: Vitamins A & D Oint UD Foilpak TOP STA (15:42)
[2017-06-20 16:57] LABS: HDL CHOLESTEROL 68 mg/dL (30-70)
[2017-06-20 17:07] LABS: LDL CHOLESTEROL 65 mg/dL (0-129)
[2017-06-21 08:01] LABS: BASO % 0.4 % (0.0-2.0); HEMOGLOBIN 12.1 g/dL (11.0-16.0); LYMPH # 1.8 K/uL (1.0-4.3); LYMPH % 53.3 % (20.0-40.0); MEAN CELL VOLUME 92.9 fL (81.0-99.0); MEAN CORPUSCULAR HEMOGLOBIN 31.8 pg (27.0-31.0); MEAN CORPUSCULAR HGB CONC 34.3 g/dL (33.0-37.0); MEAN PLATELET VOLUME 8.9 fL (7.2-11.7); MONO # 0.2 K/uL (0.0-0.8); MONO % 5.2 % (0.0-10.0); NEUT # 1.4 K/uL (1.8-7.0); NEUT % 40.1 % (50.0-75.0); NRBC % 0.1 % (0.0-2.0); RBC 3.79 Mil/uL (3.80-5.20); WHITE BLOOD COUNT 3.4 K/uL (4.8-10.8)
[2017-06-21] MEDS ORDERED: Aluminum Hydroxide/Magnesium Hydroxide Susp (30 mL) PO PRN (08:22)
[2017-06-21 08:32] LABS: ALB/GLOB RATIO 1.4 (1.0-2.1); ALBUMIN 3.8 g/dL (3.5-5.0); ALT/SGPT 87 U/L (9-52); AST/SGOT 172 U/L (14-36); BLOOD UREA NITROGEN 9 mg/dL (7-17); CALCIUM 9.4 mg/dl (8.6-10.4); GFR AFRICAN-AMERICAN > 60; GFR NON-AFRICAN AMERICAN > 60; MAGNESIUM 1.4 mg/dL (1.6-2.3)
[2017-06-21] MEDS: Multiple Vitamins Tab PO SCH (09:54)
[2017-06-21] MEDS: Magnesium Oxide 400 mg Tab UD PO SCH ×2 (09:55→17:03)
[2017-06-21] MEDS: Omega-3-Acid Ethyl Esters 1 GM Cap PO SCH ×2 (09:55→17:02)
[2017-06-21] MEDS: Pantoprazole 20 mg EC Tab PO SCH (09:56)
[2017-06-21 10:20] LABS: AMYLASE 120 U/L (30-110); LIPASE 569 U/L (23-300)
[2017-06-21] MEDS: Potassium Chloride 20 mEq ER Tab PO SCH (11:08)
--- NOTE | 2017-06-21 11:42 | PCM.PYCHPN ---
Psychiatric Progress Note - Psychiatric Progress Note Patient seen today, length of contact: 16 min Patient Chief Complaint: "I feel better again" Problems Identified/Issues Discussed: The pt is seen, chart reviewed, case discussed with staff. Patient states she is feeling well. Denies any withdrawal symptoms Patient expressed concern about being d/c at same time as another patient who asked her for a ride and money. We discussed the issue and will help her. She did not want us to discuss this with the other patient. The pt is compliant with medications and reports no side-effects. Symptoms are improving but needs more time to stabilize. After care discussed, support and psychoeducation given. Medication Change: Yes (librium taper) Medical Record Reviewed: Yes Mental Status Examination - Cognitive Function Orientation: Person, Place, Situation, Time Memory: Intact Attention: WNL Concentration: WNL Association: WNL Fund of Knowledge: WNL - Mood Mood: Neutral - Affect Affect: Broad - Speech Speech: Appropriate - Formal Thought Process Formal Thought Process: No Impairment - Suicidal Ideation Suicidal Ideation: No - Homicidal Ideation Homicidal Ideation: No Goal/Treatment Plan - Goal/Treatment Plan Need for Continued Stay: Discharge may exacerbated symptoms, Severe functional impairment Progress Toward Problem(s) and Goals/Treatment Plan: Librium detox started Pradaxa 150mg started Lisinopril 5mg started Magnesium 400mg started Will track amylase and lipase As needed medications Gabapentin for augmentation Attend groups and activities Supportive therapy and psychoeducation [place] for abstinence CBT for relapse prevention Encourage MAT Refer to rehab or IOP Attend self-help groups as well Estimated Date of D/C: 06/23/17
[2017-06-21] MEDS ORDERED: Aritificial Tears (15ml) OU PRN (16:54)
--- NOTE | 2017-06-21 17:53 | CP.PCM.PN ---
Subjective - Date & Time of Evaluation Date of Evaluation: 06/21/17 Time of Evaluation: 08:50 - Subjective Subjective: Dr. Coates's Hospitalist Service, Lonny Krishnamurthy Clinical Nursing Professor-PGY1 Patient was seen and examined at bedside. No events reported overnight per nursing. Patient says her back pain and abdominal pain have resolved. She is tolerating a soft diet and had a bowel movement yesterday. She states that she still feels gassy. She also notes that she doesn't like the medications that they are giving her because they make her woozy and tired, and she doesn't like feeling like that. Patient says that she understands that it is part of her treatment. ROS+ gassy Denies chest pain, shortness of breath, nausea, vomiting, constipation, diarrhea , abdominal pain, back pain, headache, vision changes and dysuria. Objective - Vital Signs/Intake and Output Vital Signs (last 24 hours): Temp Pulse Resp BP Pulse Ox 98 F 92 H 18 118/84 100 06/21/17 13:59 06/21/17 13:59 06/21/17 13:59 06/21/17 13:59 06/21/17 13:59 - Medications Medications: Current Medications Acetaminophen (Tylenol 325mg Tab) 650 mg PO Q6 PRN PRN Reason: Pain, moderate (4-7) Last Admin: 06/18/17 21:08 Dose: 650 mg Al Hydrox/Mg Hydrox/Simethicone (Maalox 30 Ml) 30 ml PO Q6 PRN PRN Reason: Indigestion / Heartburn Last Admin: 06/21/17 09:53 Dose: 30 ml Artificial Tears (Artificial Tears) 0 ml OU BID PRN PRN Reason: Dry eyes Chlordiazepoxide (Librium) 25 mg PO Q8H [facility] PRN Reason: Taper Stop: 06/23/17 17:59 Last Admin: 06/21/17 17:02 Dose: 25 mg Chlordiazepoxide (Librium) 25 mg PO Q4H PRN PRN Reason: Alcohol Withdrawal Last Admin: 06/20/17 23:20 Dose: 25 mg Clonidine HCl (Catapres) 0.1 mg PO Q4H PRN PRN Reason: Symptoms of alcohol withdrawl Dabigatran (Pradaxa) 150 mg PO BID [facility] Last Admin: 06/21/17 17:02 Dose: 150 mg Folic Acid (Folic Acid) 1 mg PO DAILY [facility] Last Admin: 06/21/17 09:54 Dose: 1 mg Gabapentin (Neurontin) 100 mg PO TID [facility] Last Admin: 06/21/17 17:02 Dose: 100 mg Hydroxyzine HCl (Atarax) 25 mg PO Q4H PRN PRN Reason: Anxiety Lisinopril (Zestril) 5 mg PO DAILY [facility] Last Admin: 06/21/17 09:57 Dose: 5 mg Magnesium Oxide (Mag-Ox) 400 mg PO BID [facility] Last Admin: 06/21/17 17:03 Dose: 400 mg Multivitamins (Hexavitamin) 1 tab PO DAILY [facility] Last Admin: 06/21/17 09:54 Dose: 1 tab Khpje-8-Hdfd Ethyl Esters (Lovaza) 1 gm PO BID [facility] Last Admin: 06/21/17 17:02 Dose: 1 gm Ondansetron HCl (Zofran Tab) 4 mg PO Q8 PRN PRN Reason: Nausea/Vomiting Last Admin: 06/18/17 14:27 Dose: 4 mg Pantoprazole Sodium (Protonix Ec Tab) 20 mg PO DAILY [facility] Last Admin: 06/21/17 09:56 Dose: 20 mg Potassium Chloride (K-Dur 20 Meq Er Tab) 40 meq PO DAILY [facility] Last Admin: 06/21/17 11:08 Dose: Not Given Promethazine HCl (Phenergan Inj) 25 mg IM QID PRN PRN Reason: Nausea/Vomiting, Unable PO Thiamine HCl (Vitamin B1 Tab) 100 mg PO DAILY [facility] Last Admin: 06/21/17 09:56 Dose: 100 mg Trazodone HCl (Desyrel) 50 mg PO HS PRN PRN Reason: Insomnia Last Admin: 06/20/17 21:24 Dose: 50 mg - Labs Labs: 06/21/17 07:25 06/21/17 07:25 - Head Exam Head Exam: ATRAUMATIC, NORMAL INSPECTION, NORMOCEPHALIC - Eye Exam Eye Exam: EOMI, Normal appearance, PERRL. absent: Periorbital tenderness Pupil Exam: NORMAL ACCOMODATION, PERRL. absent: Irregular, Unequal - ENT Exam ENT Exam: Mucous Membranes Moist, Normal Exam, Normal Oropharynx - Neck Exam Neck Exam: Normal Inspection. absent: Lymphadenopathy, Thyromegaly - Respiratory Exam Respiratory Exam: Clear to Ausculation Bilateral, NORMAL BREATHING PATTERN. absent: Chest Wall Tenderness, Prolonged Expiratory Phase, Respiratory Distress - Cardiovascular Exam Cardiovascular Exam: REGULAR RHYTHM, RRR, +S1, +S2. absent: Gallop, Rubs - GI/Abdominal Exam GI & Abdominal Exam: Soft, Normal Bowel Sounds. absent: Rigid, Hyperactive Bowel Sounds - Extremities Exam Extremities Exam: Full ROM, Normal Inspection. absent: Joint Swelling, Pedal Edema, Tenderness - Neurological Exam Neurological Exam: Alert, Awake, CN II-XII Intact, Normal Gait - Psychiatric Exam Psychiatric exam: Normal Affect, Normal Mood. absent: Depressed, Flat Affect - Skin Skin Exam: Dry, Intact, Normal Color, Warm Assessment and Plan - Assessment and Plan (Free Text) Assessment: 31 year old female with past medical history of pancreatitis, PE in 03/19, HTN, hypertriglyceridemia, and alcohol use disorder who was brought to the ED by her family for alcohol withdrawal on 06/17, and is now complaining of abdominal pain. Plan: 1. Acute pancreatitis secondary to alcohol use - Amylase 113, Lipase 697 - Pinckney's score- 0 - Imaging * CT abd/pelvis w/ contrast 05/27/17- Acute pancreatitis. No evidence of nephrolithiasis or hydronephrosis. No evidence of colitis or bowel obstruction. Moderate hepatomegaly and fatty liver. - Continue Clear liquid diet. Will advance as tolerated. - Tylenol 650 mg po q6 prn for pain - consult monitor CBC, CMP, LFTs - Advice on alcohol cessation - Upon discharge advised patient to follow up in outpatient clinic for liver function tests to make sure they normalize after the Librium taper. 2. Alcohol use disorder - Continue Librium taper and alcohol withdrawal protocol as per psychiatry 3. History of PE - Continue Pradaxa 150 mg po BID until 08/18 (6 months after PE) 4. History of HTN - Continue Lisinopril 5 mg po daily -Continue Clonidine .1mg PO Q4H PRN 5. History of hypertriglyceridemia - Continue Lovaza 1 gm po bid -lipid panel within normal limits. 6. Subclnical Hypothyroidism - TSH 5.72 - Free T4 1.04 - Medication not needed at this time. 7.) Prophylaxis - Pantoprazole 20mg PO daily -Following completion of Librium taper patient advised to follow up in outpatient clinic for liver function tests to make sure they normalize after Librium taper is completed. Re-enforced alcohol cessation. Patient is very motivated to remain clean from alcohol. Will sign off at this point. Feel free to re-consult us if necessary.
[2017-06-22] MEDS: Multiple Vitamins Tab PO SCH (09:33)
[2017-06-22] MEDS: Pantoprazole 20 mg EC Tab PO SCH (09:34)
[2017-06-22] MEDS: Omega-3-Acid Ethyl Esters 1 GM Cap PO SCH ×2 (09:35→18:23)
[2017-06-22] MEDS: Magnesium Oxide 400 mg Tab UD PO SCH ×2 (09:35→22:07)
[2017-06-22] MEDS: Potassium Chloride 20 mEq ER Tab PO SCH (10:46)
[2017-06-23 08:09] VITALS: RESP 18; TEMP 97.7; O2SAT 100
[2017-06-23 09:03] LABS: ALB/GLOB RATIO 1.3 (1.0-2.1); ALBUMIN 4.3 g/dL (3.5-5.0); ALT/SGPT 74 U/L (9-52); AMYLASE 129 U/L (30-110); AST/SGOT 77 U/L (14-36); BLOOD UREA NITROGEN 9 mg/dL (7-17); CALCIUM 9.7 mg/dl (8.6-10.4); GFR AFRICAN-AMERICAN > 60; GFR NON-AFRICAN AMERICAN > 60; LIPASE 485 U/L (23-300); MAGNESIUM 1.5 mg/dL (1.6-2.3)
--- NOTE | 2017-06-23 09:32 | PCM.PYCHDC ---
Mental Status Examination - Mental Status Examination Orientation: Person Discharge Summary - Discharge Note Laboratory Data: Abnormal Lab Results 06/23/17 08:12 Sodium 132 Potassium 4.1 Chloride 98 Carbon Dioxide 24 Anion Gap 14 BUN 9 Creatinine 0.8 Est GFR ( Amer) > 60 Est GFR (Non-Af Amer) > 60 Random Glucose 113 H Calcium 9.7 Magnesium 1.5 L Total Bilirubin 0.5 AST 77 H D ALT 74 H Alkaline Phosphatase 40 Total Protein 7.5 Albumin 4.3 Globulin 3.2 Albumin/Globulin Ratio 1.3 Amylase 129 H Lipase 485 H Consultations:: List each consultation separately and include: 1. Reason for request. 2. Findings. 3. Follow-up Summary of Hospital Course include:: 1. Description of specific treatment plan utilized for patients during their course of treatmen. 2. Summarize the time- course for resolution of acute symptoms and/or regressed behaviors. 3. Describe issues identified and worked on during hospitalization. 4. Describe medication utilized. 5. Describe medical problems identified and treated. 6. Reassessment of suicide risk Summary of Hospital Course: The pt is seen, chart reviewed, case discussed with staff. Patient is a 31 year old AA female who was admitted for alcohol detox. She is single, no children, and lives with her brother. He is aware of her admission. She currently works in a [employer] company. Patient has a 6 year history of alcohol use. She states she drinks 1 pint a day of "brown" liquor. She denies any usage of drugs or tobacco. She denies depression, anxiety, hallucinations, paranoia, and S/I. She has wdw symptoms already She states she has never gone to detox or rehab before. She wish to enter a rehab program after detox. PMH: HTN, blood clots. Psych Hx; Denies Family psych hx: Denies - Diagnosis (1) Alcohol use disorder, severe, dependence Current Visit: Yes Status: Acute - Final Diagnosis (DSM 5) Condition upon Discharge: FAIR Disposition: HOME/ ROUTINE Follow-up Treatment Plan: Librium detox started Pradaxa 150mg started Lisinopril 5mg started Magnesium 400mg started Will track amylase and lipase As needed medications Gabapentin for augmentation Attend groups and activities Supportive therapy and psychoeducation [place] for abstinence CBT for relapse prevention Encourage MAT Refer to rehab or IOP Attend self-help groups as well
[2017-06-23] MEDS: Omega-3-Acid Ethyl Esters 1 GM Cap PO SCH (10:28)
[2017-06-23] MEDS: Pantoprazole 20 mg EC Tab PO SCH (10:28)
[2017-06-23] MEDS: Multiple Vitamins Tab PO SCH (10:28)
[2017-06-23] MEDS: Magnesium Oxide 400 mg Tab UD PO SCH (11:04)
[2017-06-23] MEDS: Potassium Chloride 20 mEq ER Tab PO SCH (11:05)
[2017-06-23 12:53] VITALS: BP 114/79; PULSE 90
== END 2017-06-23 13:20 | disposition home or self-care (01) | DRG 750 ==
LOC: C.ER 20:47 → SUPCPDRO 20:47 → EEVIPCON 20:47 → C.9E 06-18 09:30 → C.7D 06-18 12:06
PROVIDERS: ADMIT Psychiatry & Neurology Psychiatry; ATTEND Psychiatry & Neurology Psychiatry
PROC: HZ2ZZZZ Detoxification Services for Substance Abuse Treatment (ICD-10-PCS; principal; 2017-06-18)
PROC: HZ46ZZZ Group Counseling for Substance Abuse Treatment, Psychoeducation (ICD-10-PCS; 2017-06-18)
PROC: HZ56ZZZ Individual Psychotherapy for Substance Abuse Treatment, Psychoeducation (ICD-10-PCS; 2017-06-18)
PROC: GZ3ZZZZ Medication Management (ICD-10-PCS; 2017-06-18)
DX: F10.230 Alcohol dependence with withdrawal, uncomplicated (principal); K85.20 Alcohol induced acute pancreatitis without necrosis or infection; F32.9 Major depressive disorder, single episode, unspecified; I27.82 Chronic pulmonary embolism; K86.0 Alcohol-induced chronic pancreatitis; E78.00 Pure hypercholesterolemia, unspecified; E78.1 Pure hyperglyceridemia; I10 Essential (primary) hypertension; Z79.01 Long term (current) use of anticoagulants

== ENCOUNTER 2017-12-01 19:11 | Emergency (ER) | payer MEDICAID ==
[2017-12-01 19:11] VITALS: BMI 28.0
[2017-12-01] MEDS ORDERED: Sodium Chloride 0.9% 1,000 ML IV ONE ×2 (19:28→21:10)
--- NOTE | 2017-12-01 19:28 | C.PDOC ---
History Of Present Illness 31 y/o female presents to the ED complaining of some abdominal pain, nausea, and vomiting that began today. Patient admits she ate some hot dogs and seafood yesterday off the grill. Also notes she is currently getting her period. States she is not tolerating PO today. Denies any fever, chills, diarrhea, or SOB. Time Seen by Provider: 12/01/17 19:27 Chief Complaint (Nursing): GI Problem History Per: Patient History/Exam Limitations: no limitations Onset/Duration Of Symptoms: Hrs Current Symptoms Are (Timing): Still Present Context: Food Severity: Mild Pain Scale Rating Of: 4 Location Of Pain/Discomfort: Epigastric Radiation Of Pain To:: None Quality Of Discomfort: "Pain" Associated Symptoms: Nausea, Vomiting Alleviating Factors: None Recent travel outside of the [place]: No Last Menstral Period: 12/01/17 Past Medical History Reviewed: Historical Data, Nursing Documentation, Vital Signs Vital Signs: Last Vital Signs Temp 98.1 F 12/01/17 19:18 Pulse 97 H 12/01/17 19:18 Resp 18 12/01/17 19:18 BP 106/76 12/01/17 19:18 Pulse Ox 98 12/01/17 20:07 - Medical History PMH: Gastritis, HTN, Hypercholesterolemia, Pancreatitis, Pulmonary Embolism Denies: Diabetes, Hepatitis, HIV, Chronic Kidney Disease, Seizures, Sexually Transmitted Disease - [facility] Procedures DETOXIFICATION SERVICES FOR SUBSTANCE ABUSE TREATMENT (06/18/17) GROUP BUSINESS CONTINUITY SPECIALIST FOR SUBSTANCE ABUSE TREATMENT, PSYCHOEDUCATION (06/18/17) INDIV PSYCHOTHERAPY FOR SUBSTANCE ABUSE, PSYCHOEDUCATION (06/18/17) MEDICATION MANAGEMENT (06/18/17) Family History: States: Unknown Family Hx - Social History Hx Tobacco Use: No Hx Alcohol Use: Yes Hx Substance Use: Yes - Immunization History Hx Tetanus Toxoid Vaccination: Yes Hx Influenza Vaccination: Yes Hx Pneumococcal Vaccination: No Review Of Systems Constitutional: Negative for: Fever, Chills Respiratory: Negative for: Shortness of Breath Gastrointestinal: Positive for: Nausea, Vomiting, Abdominal Pain. Negative for : Diarrhea Physical Exam - Physical Exam Appears: Non-toxic, No Acute Distress Skin: Warm, Dry Head: Normacephalic Eye(s): bilateral: Normal Inspection Oral Mucosa: Dry Neck: Trachea Midline, Supple Chest: Symmetrical Cardiovascular: Rhythm Regular Respiratory: No Rales, No Rhonchi, No Wheezing Gastrointestinal/Abdominal: Soft, Tenderness (Mid-epigastric tenderness), No Guarding, No Rebound Back: Normal Inspection, No CVA Tenderness, No Vertebral Tenderness Extremity: Bilateral: Atraumatic, Normal Color And Temperature, Normal ROM Pulses: Left Dorsalis Pedis: Normal, Right Dorsalis Pedis: Normal Neurological/Psych: Oriented x3 Gait: Steady ED Course And Treatment - Laboratory Results Result Diagrams: 12/01/17 19:43 12/01/17 19:43 O2 Sat by Pulse Oximetry: 98 (RA) Pulse Ox Interpretation: Normal Progress Note: Blood work and urine sent. Patient treated with IV fluids, Toradol, and Zofran. Reevaluation Time: 23:07 Reassessment Condition: Improved Disposition Counseled Patient/Family Regarding: Studies Performed, Diagnosis, Need For Followup - Disposition Referrals: Ramírez Guevara MD [Primary Care Provider] - Disposition: HOME/ ROUTINE Disposition Time: 19:28 Condition: FAIR Prescriptions: traMADol [Ultram] 50 mg PO TID PRN #15 tab PRN Reason: Pain, Severe (8-10) Instructions: Menstruation, Menstrual Cramps (DC) Forms: [employer] (Yakut) - Clinical Impression Clinical Impression: Abdominal pain, Severe menstrual cramps - Scribe Statement The provider has reviewed the documentation as recorded by the Scribe (Ashanti Ya) Provider Attestation: All medical record entries made by the Scribe were at my direction and personally dictated by me. I have reviewed the chart and agree that the record accurately reflects my personal performance of the history, physical exam, medical decision making, and the department course for this patient. I have also personally directed, reviewed, and agree with the discharge instructions and disposition.
[2017-12-01] MEDS ORDERED: Sodium Chloride 0.9% 1,000 ML ONE ×2 (19:32→23:05)
[2017-12-01 20:01] LABS: BASO % 0.5 % (0.0-2.0); EOS % 0.2 % (0.0-4.0); HEMOGLOBIN 14.7 g/dL (11.0-16.0); LYMPH # 2.3 K/uL (1.0-4.3); MEAN CELL VOLUME 86.4 fL (81.0-99.0); MEAN CORPUSCULAR HEMOGLOBIN 29.4 pg (27.0-31.0); MONO # 0.4 K/uL (0.0-0.8); NEUT # 2.6 K/uL (1.8-7.0); NEUT % 48.3 % (50.0-75.0); NRBC % 0.1 % (0.0-2.0); RBC 4.98 Mil/uL (3.80-5.20); RED CELL DISTRIBUTION WIDTH 12.5 % (11.5-14.5); WHITE BLOOD COUNT 5.3 K/uL (4.8-10.8)
[2017-12-01 20:03] LABS: HCG,QUALITATIVE URINE NEGATIVE (NEGATIVE)
[2017-12-01 20:14] LABS: URINE BILIRUBIN NEGATIVE (NEGATIVE); URINE BLOOD 2+ (NEGATIVE); URINE CLARITY Clear (Clear); URINE COLOR Yellow (YELLOW); URINE GLUCOSE (UA) NORMAL (Normal); URINE LEUKOCYTE ESTERASE NEG Leu/uL (Negative); URINE PROTEIN 2+ mg/dL (NEGATIVE); URINE UROBILINOGEN NORMAL mg/dL (0.2-1.0)
[2017-12-01 20:26] LABS: ALB/GLOB RATIO 1.3 (1.0-2.1); ALBUMIN 5.2 g/dL (3.5-5.0); ALT/SGPT 26 U/L (9-52); AST/SGOT 33 U/L (14-36); BLOOD UREA NITROGEN 18 mg/dL (7-17); CALCIUM 9.8 mg/dl (8.6-10.4); GFR AFRICAN-AMERICAN > 60; GFR NON-AFRICAN AMERICAN > 60; LIPASE 43 U/L (23-300)
[2017-12-01 20:31] LABS: SQUAMOUS EPITHIAL 3 /hpf (0-5)
[2017-12-01 20:32] LABS: URINE BACTERIA FEW (<OCC)
[2017-12-01] MEDS ORDERED: Acetaminophen IV 1,000 MG in Premixed IV 1 EA IV ONE (21:54)
[2017-12-01 23:35] VITALS: BP 123/78; PULSE 77; RESP 16; TEMP 98.3; O2SAT 100
== END 2017-12-01 23:35 | disposition home or self-care (01) ==
LOC: C.ER 19:11 → SUPCPDRO 19:11 → C.ER 23:35
DX: R10.13 Epigastric pain (principal); N94.6 Dysmenorrhea, unspecified
CPT/HCPCS: 80053; 80320; 81001; 83690; 84703; 85025; 96361; 96374; 96375; 99284; J0131; J1885; J2405; J2765; J7030

== ENCOUNTER 2018-03-06 17:39 | Emergency (ER) | payer MEDICAID ==
[2018-03-06 17:39] VITALS: BMI 28.0
[2018-03-06] MEDS ORDERED: Sodium Chloride 0.9% 1,000 ML IV ONE (18:07)
[2018-03-06] MEDS ORDERED: Sodium Chloride 0.9% 1,000 ML ONE (18:18)
[2018-03-06 18:33] LABS: BASO # 0.1 K/uL (0.0-0.2); BASO % 0.7 % (0.0-2.0); EOS % 0.6 % (0.0-4.0); HEMOGLOBIN 14.2 g/dL (11.0-16.0); LYMPH # 3.5 K/uL (1.0-4.3); LYMPH % 43.5 % (20.0-40.0); MEAN CELL VOLUME 89.3 fL (81.0-99.0); MEAN CORPUSCULAR HEMOGLOBIN 31.9 pg (27.0-31.0); MEAN CORPUSCULAR HGB CONC 35.7 g/dL (33.0-37.0); MEAN PLATELET VOLUME 7.5 fL (7.2-11.7); MONO # 0.4 K/uL (0.0-0.8); MONO % 5.5 % (0.0-10.0); NEUT % 49.7 % (50.0-75.0); NRBC % 0.4 % (0.0-2.0); RBC 4.46 Mil/uL (3.80-5.20); RED CELL DISTRIBUTION WIDTH 12.6 % (11.5-14.5)
[2018-03-06 18:45] LABS: INR 1.2; PARTIAL THROMBOPLASTIN TIME 27 SECONDS (21-34); PROTHROMBIN TIME 12.6 SECONDS (9.7-12.2)
[2018-03-06 18:46] LABS: D DIMER < 200 ng/mlDDU (0-243)
[2018-03-06 18:48] LABS: ALB/GLOB RATIO 1.5 (1.0-2.1); ALBUMIN 4.8 g/dL (3.5-5.0); ALT/SGPT 49 U/L (9-52); AST/SGOT 45 U/L (14-36); BLOOD UREA NITROGEN 8 mg/dL (7-17); CALCIUM 10.1 mg/dl (8.6-10.4); GFR NON-AFRICAN AMERICAN > 60
[2018-03-06 18:59] LABS: B-TYPE NATRIURETIC PEPTIDE 19.3 pg/mL (0-450)
[2018-03-06 19:08] LABS: SQUAMOUS EPITHIAL 5 /hpf (0-5); URINE BACTERIA RARE (<OCC); URINE BILIRUBIN NEGATIVE (NEGATIVE); URINE BLOOD 1+ (NEGATIVE); URINE CLARITY Clear (Clear); URINE COLOR Yellow (YELLOW); URINE GLUCOSE (UA) NORMAL (Normal); URINE LEUKOCYTE ESTERASE TRACE Leu/uL (Negative); URINE PROTEIN NEGATIVE (NEGATIVE); URINE UROBILINOGEN NORMAL mg/dL (0.2-1.0)
--- NOTE | 2018-03-06 19:08 | C.PDOC ---
History Of Present Illness 32 y/o female presents to the ER complaining of chronic left posterior thoracic chest wall pain which has been present for the past few weeks. Patient states that pain is waxing and waning. Patient reports that she was recently diagnosed with questionable pneumonia. She notes that she is taking Motrin and Z-Pack. She has to follow up with her PMD Dr. Rodriguez for eval of lft posterior thoracic back pain. Denies having SOB, fever, and chills. Of note, patient has history of PE. Time Seen by Provider: 03/06/18 17:55 Chief Complaint (Nursing): Shortness Of Breath History Per: Patient History/Exam Limitations: no limitations Onset/Duration Of Symptoms: Days Current Symptoms Are (Timing): Still Present Severity: Moderate Past Medical History Reviewed: Historical Data, Nursing Documentation, Vital Signs Vital Signs: Last Vital Signs Temp 98.6 F 03/06/18 17:44 Pulse 98 H 03/06/18 17:44 Resp 10 L 03/06/18 18:00 BP 122/79 03/06/18 17:44 Pulse Ox 97 03/06/18 18:00 - Medical History PMH: Gastritis, HTN, Hypercholesterolemia, Pancreatitis, Pulmonary Embolism Denies: Diabetes, Hepatitis, HIV, Chronic Kidney Disease, Seizures, Sexually Transmitted Disease Surgical History: No Surg Hx - [facility] Procedures DETOXIFICATION SERVICES FOR SUBSTANCE ABUSE TREATMENT (06/18/17) GROUP POLICE MAGISTRATE FOR SUBSTANCE ABUSE TREATMENT, PSYCHOEDUCATION (06/18/17) INDIV PSYCHOTHERAPY FOR SUBSTANCE ABUSE, PSYCHOEDUCATION (06/18/17) MEDICATION MANAGEMENT (06/18/17) Family History: States: No Known Family Hx - Social History Hx Tobacco Use: No Hx Alcohol Use: Yes Hx Substance Use: No - Immunization History Hx Tetanus Toxoid Vaccination: No Hx Influenza Vaccination: No Hx Pneumococcal Vaccination: No Review Of Systems Except As Marked, All Systems Reviewed And Found Negative. Constitutional: Negative for: Fever, Chills Cardiovascular: Positive for: Other (chest wall pain) Respiratory: Negative for: Shortness of Breath Gastrointestinal: Negative for: Nausea, Vomiting Physical Exam - Physical Exam Appears: Other (odd effect) Skin: Normal Color, Warm, Dry Head: Atraumatic, Normacephalic Eye(s): bilateral: Normal Inspection Nose: Normal Oral Mucosa: Moist, Other (ETOH on breath) Neck: Supple Chest: Symmetrical, Tenderness (digitally reproducible tenderness intercostal spaces left posterior thoracic T3-T6), Other (no rash) Cardiovascular: Rhythm Regular Respiratory: Normal Breath Sounds, No Rales, No Rhonchi, No Wheezing Gastrointestinal/Abdominal: Normal Exam, Soft, No Tenderness, No Guarding, No Rebound Neurological/Psych: Oriented x3, Normal Speech ED Course And Treatment - Laboratory Results Result Diagrams: 03/06/18 18:26 03/06/18 18:26 Lab Interpretation: Normal (trop/d dimer neg, ETOH neg.) Urine POC: Negative ECG: Interpreted By Me ECG Rhythm: Sinus Tachycardia ECG Interpretation: Abnormal Rate From EC O2 Sat by Pulse Oximetry: 97 (RA) Pulse Ox Interpretation: Normal - Radiology CXR: Interpreted by Me CXR Interpretation: Yes: No Acute Disease Progress Note: ice/ toradol Reevaluation Time: 19:07 Reassessment Condition: Improved Medical Decision Making Medical Decision Making: L posterior thoracic intercostal cartilagenous digitally and positionally reproducable pain, prob related to recent (past 3 wks) dry cough and heat therapies d-dimer neg though h/o pancreatitis which can (small percent) cause referred pain to shoulder, this pain is musculoskeletal to the LEFT posterior thorax, so of low suspicion. ice/NSAIDS educated intermittently in severe pain then in NAD and with normal muscular movement of L shoulder/back suggest some anxiety/psych component Disposition Doctor Will See Patient In The: Office Counseled Patient/Family Regarding: Studies Performed, Diagnosis - Disposition Referrals: Dianelys Rodriguez MD [Staff Provider] - Disposition: HOME/ ROUTINE Disposition Time: 19:08 Condition: GOOD Additional Instructions: continue ice packs 1/2 hour per hour, nothing hot Motrin/Advil/Ibuprofen 400-600 mg every 6 hours as needed NO heavy lifting for 1 week this pain will probably persist for about a week more Follow-up w Dr. Rodriguez as needed. Instructions: Costochondritis (DC) Forms: [facility] (Mongolian) - Clinical Impression Clinical Impression: Chest wall discomfort - Scribe Statement The provider has reviewed the documentation as recorded by the Scribe Pamela Domingo Provider Attestation: All medical record entries made by the Scribe were at my direction and personally dictated by me. I have reviewed the chart and agree that the record accurately reflects my personal performance of the history, physical exam, medical decision making, and the department course for this patient. I have also personally directed, reviewed, and agree with the discharge instructions and disposition.
[2018-03-06 19:09] LABS: HCG,QUALITATIVE URINE NEGATIVE (NEGATIVE)
[2018-03-06 19:19] LABS: BARBITURATES, UR NEGATIVE (NEGATIVE); BENZODIAZEPINES, UR NEGATIVE (NEGATIVE); OPIATES, UR NEGATIVE (NEGATIVE); PHENCYCLIDINE, UR NEGATIVE (NEGATIVE)
[2018-03-06 19:47] VITALS: BP 111/73; PULSE 100; RESP 20; TEMP 98.7
[2018-03-06 21:43] VITALS: O2SAT 97
--- NOTE | 2018-03-07 08:46 | RAD ---
HISTORY: Left posterior chest wall discomfort, no trauma COMPARISON: 02/20/2018. TECHNIQUE: Chest PA and lateral FINDINGS: LINES AND TUBES: None. LUNG AND PLEURA: The lungs are well inflated and clear. No pleural effusion or pneumothorax. HEART AND MEDIASTINUM: The heart is not enlarged. The hilar and mediastinal contours are within normal limits. SKELETAL STRUCTURES: The bony structures are within normal limits for the patient's age. VISUALIZED UPPER ABDOMEN: Normal. OTHER FINDINGS: None. IMPRESSION: No active pulmonary disease. No acute findings.
--- NOTE | 2018-03-10 11:06 | CARD ---
APPROVED REPORT Date of service: 03/06/2018 EKG Measurement Heart [id number] <Conclusion> Sinus tachycardia Possible Left atrial enlargement Borderline ECG
== END 2018-03-06 19:47 | disposition home or self-care (01) ==
LOC: C.ER 17:39
DX: R07.89 Other chest pain (principal)
CPT/HCPCS: 71046; 80053; 80320; 80324; 80345; 80346; 80349; 80353; 80358; 80361; 81001; 83880; 83992; 84484; 84703; 85025; 85378; 85610; 85730; 93005; 96374; 99284; J1885; J7030

== ENCOUNTER 2018-04-08 02:45 | Emergency (ER) | payer MEDICAID ==
[2018-04-08 02:45] VITALS: BMI 28.0
[2018-04-08] MEDS ORDERED: Sodium Chloride 0.9% 1,000 ML ONE (03:00)
[2018-04-08] MEDS ORDERED: Sodium Chloride 0.9% 1,000 ML IV ONE (03:08)
[2018-04-08 03:22] LABS: BASO % 0.4 % (0.0-2.0); EOS # 0.1 K/uL (0.0-0.7); EOS % 1.4 % (0.0-4.0); HEMOGLOBIN 12.8 g/dL (11.0-16.0); LYMPH # 4.6 K/uL (1.0-4.3); LYMPH % 59.6 % (20.0-40.0); MEAN CELL VOLUME 91.4 fL (81.0-99.0); MEAN CORPUSCULAR HEMOGLOBIN 32.3 pg (27.0-31.0); MEAN CORPUSCULAR HGB CONC 35.3 g/dL (33.0-37.0); MONO # 0.3 K/uL (0.0-0.8); MONO % 4.3 % (0.0-10.0); NEUT # 2.7 K/uL (1.8-7.0); NEUT % 34.3 % (50.0-75.0); NRBC % 0.1 % (0.0-2.0); RBC 3.97 Mil/uL (3.80-5.20); RED CELL DISTRIBUTION WIDTH 12.7 % (11.5-14.5); WHITE BLOOD COUNT 7.8 K/uL (4.8-10.8)
[2018-04-08 04:09] LABS: ALB/GLOB RATIO 1.9 (1.0-2.1); ALBUMIN 4.4 g/dL (3.5-5.0); ALT/SGPT 38 U/L (9-52); AST/SGOT 54 U/L (14-36); BLOOD UREA NITROGEN 8 mg/dL (7-17); CALCIUM 8.3 mg/dl (8.6-10.4); GFR NON-AFRICAN AMERICAN > 60
--- NOTE | 2018-04-08 04:09 | C.PDOC ---
History Of Present Illness 32 year old female presents to the ER with a complaint of intermittent vaginal bleeding with clots for the past 3 weeks. Patient states her menses have been fluctuating since she was removed from her control over a year ago. Gordy pettit reports that tonight she began having suprapubic pain and had 2 episodes of vomiting which prompted visit. Patient has not had any recent RADIAL DRILL OPERATOR visit. Denies dizziness, weakness, or diarrhea. Time Seen by Provider: 04/08/18 02:59 Chief Complaint (Nursing): Abdominal Pain History Per: Patient History/Exam Limitations: no limitations Onset/Duration Of Symptoms: Days, Intermittent Episodes Current Symptoms Are (Timing): Still Present Location Of Pain/Discomfort: Suprapubic Radiation Of Pain To:: None Quality Of Discomfort: Unable To Describe Associated Symptoms: Vomiting. denies: Diarrhea, Other (dizziness, weakness) Exacerbating Factors: None Alleviating Factors: None Recent travel outside of the [place]: No Abnormal Vaginal Bleeding: Yes Past Medical History Reviewed: Historical Data, Nursing Documentation, Vital Signs Vital Signs: Last Vital Signs Temp 98.0 F 04/08/18 02:54 Pulse 98 H 04/08/18 02:54 Resp 18 04/08/18 02:54 BP 101/69 04/08/18 02:54 Pulse Ox 99 04/08/18 02:54 - Medical History PMH: Gastritis, HTN, Hypercholesterolemia, Pancreatitis, Pulmonary Embolism Denies: Diabetes, Hepatitis, HIV, Chronic Kidney Disease, Seizures, Sexually Transmitted Disease - [facility] Procedures DETOXIFICATION SERVICES FOR SUBSTANCE ABUSE TREATMENT (06/18/17) GROUP ORTHOPEDIC SHOE MAKER FOR SUBSTANCE ABUSE TREATMENT, PSYCHOEDUCATION (06/18/17) INDIV PSYCHOTHERAPY FOR SUBSTANCE ABUSE, PSYCHOEDUCATION (06/18/17) MEDICATION MANAGEMENT (06/18/17) Family History: States: Unknown Family Hx - Social History Hx Tobacco Use: No Hx Alcohol Use: Yes Hx Substance Use: No - Immunization History Hx Tetanus Toxoid Vaccination: No Hx Influenza Vaccination: No Hx Pneumococcal Vaccination: No Review Of Systems Constitutional: Negative for: Fever, Chills, Weakness Gastrointestinal: Positive for: Vomiting, Abdominal Pain. Negative for: Diarrhea Genitourinary: Positive for: Vaginal Bleeding Neurological: Negative for: Dizziness Physical Exam - Physical Exam Appears: Non-toxic Skin: Normal Color, Warm, Dry Head: Atraumatic, Normacephalic Eye(s): bilateral: Normal Inspection Oral Mucosa: Moist Chest: Symmetrical, No Tenderness Cardiovascular: Rhythm Regular Respiratory: Normal Breath Sounds, No Rales, No Rhonchi, No Wheezing Gastrointestinal/Abdominal: Bowel Sounds (Normal), Soft, Tenderness (Mildly diffuse), No Guarding, No Rebound Pelvic: Other (Refused) Neurological/Psych: Oriented x3, Normal Speech ED Course And Treatment - Laboratory Results Result Diagrams: 04/08/18 03:14 04/08/18 03:14 O2 Sat by Pulse Oximetry: 99 (Room air) Pulse Ox Interpretation: Normal Progress Note: Blood work and urinalysis ordered, results were negative. IV fluids, toradol, and zofran administered. On reevaluation, patient is resting comfortably in the ER in no acute distress, tolerating PO, vitals are stable, will discharge home with instructions to follow up with OBGYN for further evaluation. Disposition - Disposition Referrals: [facility] [Outside] [facility] [Outside] Disposition: HOME/ ROUTINE Disposition Time: 04:39 Condition: STABLE Additional Instructions: Take medications as directed Follow up in [facility]OVERAGE SPECIALIST clinic Increase PO fluids Return to ER if worse Prescriptions: Ondansetron [Zofran Odt] 4 mg PO TID #10 odt traMADol [Ultram] 50 mg PO TID #10 tab Instructions: Heavy Periods (DC) Forms: [facility] (German) - Clinical Impression Clinical Impression: Dysfunctional uterine bleeding - PA / CARGO AGENT / Resident Statement MD/DO has reviewed & agrees with the documentation as recorded. - Scribe Statement The provider has reviewed the documentation as recorded by the Scribe German Stevens All medical record entries made by the Scribe were at my direction and personally dictated by me. I have reviewed the chart and agree that the record accurately reflects my personal performance of the history, physical exam, medical decision making, and the department course for this patient. I have also personally directed, reviewed, and agree with the discharge instructions and disposition.
[2018-04-08 04:24] VITALS: TEMP 98.1
[2018-04-08 04:41] VITALS: BP 103/74; PULSE 94; RESP 20; O2SAT 99
== END 2018-04-08 05:07 | disposition home or self-care (01) ==
LOC: C.ER 02:45
DX: N93.8 Other specified abnormal uterine and vaginal bleeding (principal); I10 Essential (primary) hypertension; E78.00 Pure hypercholesterolemia, unspecified; Z86.711 Personal history of pulmonary embolism
CPT/HCPCS: 80053; 84702; 85025; 96361; 96374; 96375; 96376; 99285; J1885; J2405; J7030

== ENCOUNTER 2018-06-01 18:09 | Emergency (ER) | payer MEDICAID ==
[2018-06-01 18:09] VITALS: BMI 28.0
[2018-06-01 18:14] VITALS: RESP 18
[2018-06-01] MEDS ORDERED: Sodium Chloride 0.9% 1,000 ML IV ONE (19:13)
[2018-06-01 19:23] LABS: BASO # 0.1 K/uL (0.0-0.2); BASO % 2.1 % (0.0-2.0); EOS % 0.3 % (0.0-4.0); HEMOGLOBIN 14.2 g/dL (11.0-16.0); LYMPH # 1.7 K/uL (1.0-4.3); LYMPH % 36.6 % (20.0-40.0); MEAN CELL VOLUME 91.9 fL (81.0-99.0); MEAN CORPUSCULAR HEMOGLOBIN 31.9 pg (27.0-31.0); MEAN CORPUSCULAR HGB CONC 34.7 g/dL (33.0-37.0); MEAN PLATELET VOLUME 7.9 fL (7.2-11.7); MONO # 0.3 K/uL (0.0-0.8); NEUT # 2.5 K/uL (1.8-7.0); NRBC % 0.2 % (0.0-2.0); RBC 4.44 Mil/uL (3.80-5.20); RED CELL DISTRIBUTION WIDTH 11.9 % (11.5-14.5); WHITE BLOOD COUNT 4.5 K/uL (4.8-10.8)
[2018-06-01 19:35] LABS: BLOOD UREA NITROGEN 15 mg/dL (7-17); CALCIUM 9.2 mg/dl (8.6-10.4); GFR NON-AFRICAN AMERICAN > 60; LIPASE 58 U/L (23-300)
[2018-06-01 19:36] LABS: ALB/GLOB RATIO 1.6 (1.0-2.1); ALBUMIN 5.1 g/dL (3.5-5.0); ALT/SGPT 33 U/L (9-52); AST/SGOT 62 U/L (14-36)
--- NOTE | 2018-06-01 19:52 | C.PDOC ---
History Of Present Illness 32 year old female presents to the ED for evaluation of pelvic pain associated with nausea and vomiting that began at approx 8am today. The patient admits to having 1 episode of diarrhea. Patient has PMHx of ovarian cyst diagnosed April 2018 by ultrasound. Patient currently has her menses. She denies fever, chills, dysuria, hematuria, vaginal discharge. Time Seen by Provider: 06/01/18 19:02 Chief Complaint (Nursing): Abdominal Pain History Per: Patient History/Exam Limitations: no limitations Onset/Duration Of Symptoms: Hrs Current Symptoms Are (Timing): Still Present Associated Symptoms: Nausea, Vomiting, Diarrhea Recent travel outside of the [place]: No Past Medical History Reviewed: Historical Data, Nursing Documentation, Vital Signs Vital Signs: Last Vital Signs Temp 98.1 F 06/01/18 18:11 Pulse 88 06/01/18 18:11 Resp 18 06/01/18 18:11 BP 123/90 06/01/18 18:11 Pulse Ox 99 06/01/18 18:11 - Medical History PMH: Gastritis, HTN, Hypercholesterolemia, Pancreatitis, Pulmonary Embolism - [facility] Procedures DETOXIFICATION SERVICES FOR SUBSTANCE ABUSE TREATMENT (06/18/17) GROUP OIL EXPELLER OPERATOR FOR SUBSTANCE ABUSE TREATMENT, PSYCHOEDUCATION (06/18/17) INDIV PSYCHOTHERAPY FOR SUBSTANCE ABUSE, PSYCHOEDUCATION (06/18/17) MEDICATION MANAGEMENT (06/18/17) Family History: States: No Known Family Hx - Social History Hx Tobacco Use: No Hx Alcohol Use: Yes Hx Substance Use: No - Immunization History Hx Tetanus Toxoid Vaccination: No Hx Influenza Vaccination: No Hx Pneumococcal Vaccination: No Review Of Systems Constitutional: Negative for: Fever, Chills Cardiovascular: Negative for: Chest Pain, Palpitations Respiratory: Negative for: Shortness of Breath Gastrointestinal: Positive for: Nausea, Vomiting, Diarrhea, Other (pelvic pain. ) Genitourinary: Negative for: Dysuria, Hematuria, Vaginal Discharge, Vaginal Bleeding Skin: Negative for: Rash Physical Exam - Physical Exam Appears: Well, Non-toxic, Other (uncomfortable appearing ) Skin: Normal Color, Warm, Dry Head: Normacephalic Eye(s): bilateral: Normal Inspection Oral Mucosa: Moist Neck: Supple Cardiovascular: Rhythm Regular Respiratory: Normal Breath Sounds, No Rales, No Rhonchi, No Wheezing Gastrointestinal/Abdominal: Bowel Sounds, Soft, Tenderness (suprapubic and B/L adnexal mild TTP) Back: No CVA Tenderness Extremity: Normal ROM Neurological/Psych: Oriented x3 ED Course And Treatment - Laboratory Results Result Diagrams: 06/01/18 19:20 06/01/18 19:20 O2 Sat by Pulse Oximetry: 99 (RA) Pulse Ox Interpretation: Normal - CT Scan/US transvaginal US Other Rad Studies (CT/US): Read By Radiologist, Radiology Report Reviewed CT/US Interpretation: History. Left adnexal/pelvic pain. Comparison. None available. Technique. TA/TV. Findings. Uterus. Measures 5.81 x 2.98 x 3.63 cm. Normal in size and appearance. No fibroid or other mass lesion seen. Endometrium. Measures 5 mm in diameter. Tiny calcification measures 0.15 x 0.2 x 0.12 cm. Right ovary. Measures 2.82 x 1.46 x 2.86 cm. No solid mass. Normal flow. Left ovary. Measures 2.79 x 1.79 x 2.97 cm. No solid mass. Normal flow. Cysts measure 1.53 x 0.82 x 1.15 cm, 0.71 x 0.59 x 0.63 cm and 0.54 x 0.41 x 0.59 cm. Other Findings. None. Impression. 1. Tiny endometrial aimee cification. 2. Left ovarian cysts. . Electronically signed on Jun 01, 2018 10:44:03 PM EST by: Jori Fuentes M.D., ANEL Certified By ABR & CBCCT. Fellowship Trained MRI and CT Specialist. Progress Note: Blood work, UA, Upreg and transvaginal US ordered and reviewed. Patient given IV Ns bolus, IV toradol and IV zofran. 20:30 - Patient still c/o pain - IV morphine given. Reevaluation Time: 23:00 Reassessment Condition: Improved (Patient reassessed, is resting comfortably and states she feels better. On exam, abdomen is soft and nontender. US shows ovarian cysts on left, no torsion. Patient given Rx for naprosyn and was instructed to follow up with bilingual medical receptionist within 1 week. She understands she should return to ED if symptoms worsen.) Disposition Counseled Patient/Family Regarding: Studies Performed, Diagnosis, Need For Followup, Rx Given - Disposition Referrals: [facility] [Outside] Disposition: HOME/ ROUTINE Disposition Time: 23:00 Condition: STABLE Additional Instructions: FOLLOW UP WITH YOUR HAT AND CAP SEWER/CLINIC WITHIN 1 WEEK USE MEDICATION NEEDED FOR PAIN RETURN TO ER IF SYMPTOMS WORSEN Prescriptions: Naproxen 375 mg PO BID PRN #20 tablet PRN Reason: pain Instructions: Ovarian Cyst (DC), Menstrual Cramps (DC) Forms: [facility] (British) Print Language: TURKISH - POA Present On Arrival: None - Clinical Impression Clinical Impression: Left ovarian cyst, Dysmenorrhea - Scribe Statement The provider has reviewed the documentation as recorded by the Scribe (Laurie Peraza) Provider Attestation: All medical record entries made by the Scribe were at my direction and personally dictated by me. I have reviewed the chart and agree that the record accurately reflects my personal performance of the history, physical exam, medical decision making, and the department course for this patient. I have also personally directed, reviewed, and agree with the discharge instructions and disposition.
[2018-06-01] MEDS ORDERED: Morphine 4 MG/ML VIAL ONE (20:39)
[2018-06-01 20:40] LABS: HCG,QUALITATIVE URINE NEGATIVE (NEGATIVE)
[2018-06-01 20:44] LABS: SQUAMOUS EPITHIAL 2 /hpf (0-5); URINE BILIRUBIN NEGATIVE (NEGATIVE); URINE BLOOD NEGATIVE (NEGATIVE); URINE CLARITY Clear (Clear); URINE COLOR Yellow (YELLOW); URINE GLUCOSE (UA) NORMAL (Normal); URINE LEUKOCYTE ESTERASE NEG Leu/uL (Negative); URINE PROTEIN NEGATIVE (NEGATIVE); URINE UROBILINOGEN NORMAL mg/dL (0.2-1.0)
[2018-06-01 22:34] VITALS: BP 124/87; PULSE 75; TEMP 98.5
[2018-06-01 23:01] VITALS: O2SAT 99
--- NOTE | 2018-06-02 09:42 | US ---
Date of service: 06/01/2018 HISTORY: left adnexal/pelvic pain COMPARISON: None available. TECHNIQUE: Transabdominal and transvaginal FINDINGS: UTERUS: Measures 5.8 x 3.0 x 3.6 cm. Normal in size and appearance. No fibroid or other mass lesion seen. ENDOMETRIUM: Measures 5 mm in diameter. Incidental punctate endometrial calcification, no probable clinical significance. CERVIX: No cervical abnormality identified. RIGHT OVARY: Measures 2.8 x 1.5 x 2.9 cm. No solid mass. Normal flow. LEFT OVARY: Measures 2.8 x 1.8 x 3.0 cm. No solid mass. Normal flow. Multiple follicular cysts, largest 1.5 cm. FREE FLUID: No significant free fluid noted. OTHER FINDINGS: None. IMPRESSION: Unremarkable pelvic ultrasound. The preliminary findings for this examination were reported by [facility] at 10:44 p.m. on 06/01/2018. There is concurrence of this report with the preliminary findings.
== END 2018-06-01 23:18 | disposition home or self-care (01) ==
LOC: C.ER 18:09
DX: N83.202 Unspecified ovarian cyst, left side (principal); N94.6 Dysmenorrhea, unspecified; I10 Essential (primary) hypertension; E78.00 Pure hypercholesterolemia, unspecified
CPT/HCPCS: 76830; 76856; 80053; 81001; 83690; 84703; 85025; 96361; 96374; 96375; 99285; J1885; J2270; J2405; J7030

== ENCOUNTER 2018-06-10 17:36 | Inpatient (IN) | payer MEDICAID, OTHER ==
[2018-06-10 17:36] VITALS: BMI 28.0
[2018-06-10] MEDS ORDERED: Sodium Chloride 0.9% 1,000 ML IV ONE (18:30)
[2018-06-10] MEDS ORDERED: Iodixanol 320 MG/ML 200 ML BOTTLE IV ONE (18:43)
[2018-06-10 19:10] LABS: BASO % 0.4 % (0.0-2.0); EOS % 0.5 % (0.0-4.0); HEMOGLOBIN 15.2 g/dL (11.0-16.0); LYMPH % 44.7 % (20.0-40.0); MEAN CELL VOLUME 93.5 fL (81.0-99.0); MEAN CORPUSCULAR HEMOGLOBIN 32.4 pg (27.0-31.0); MEAN CORPUSCULAR HGB CONC 34.7 g/dL (33.0-37.0); MEAN PLATELET VOLUME 7.5 fL (7.2-11.7); MONO # 0.5 K/uL (0.0-0.8); MONO % 6.9 % (0.0-10.0); NEUT # 3.2 K/uL (1.8-7.0); NEUT % 47.5 % (50.0-75.0); RBC 4.68 Mil/uL (3.80-5.20); RED CELL DISTRIBUTION WIDTH 12.1 % (11.5-14.5); WHITE BLOOD COUNT 6.8 K/uL (4.8-10.8)
[2018-06-10] MEDS ORDERED: Sodium Chloride 0.9% 1,000 ML ONE (19:16)
[2018-06-10] MEDS ORDERED: Morphine 4 MG/ML VIAL ONE ×3 (19:16→22:51)
[2018-06-10 19:24] LABS: INR 1.1; PROTHROMBIN TIME 12.3 SECONDS (9.7-12.2)
[2018-06-10 19:37] LABS: ALB/GLOB RATIO 1.7 (1.0-2.1); ALBUMIN 5.2 g/dL (3.5-5.0); ALT/SGPT 44 U/L (9-52); AST/SGOT 70 U/L (14-36); BLOOD UREA NITROGEN 6 mg/dL (7-17); GFR NON-AFRICAN AMERICAN > 60
[2018-06-10] MEDS ORDERED: Potassium Chloride 20 mEq ER Tab PO STA (20:03)
[2018-06-10] MEDS ORDERED: Potassium Chloride 20 mEq ER Tab PO ONE (20:16)
[2018-06-10] MEDS ORDERED: Potassium Chloride 20 mEq 100 ML ONE (20:16)
[2018-06-10 20:20] LABS: SQUAMOUS EPITHIAL 3 /hpf (0-5); URINE BILIRUBIN NEGATIVE (NEGATIVE); URINE BLOOD NEGATIVE (NEGATIVE); URINE CLARITY Clear (Clear); URINE COLOR Yellow (YELLOW); URINE GLUCOSE (UA) NORMAL (Normal); URINE LEUKOCYTE ESTERASE NEG Leu/uL (Negative); URINE PROTEIN NEGATIVE (NEGATIVE); URINE UROBILINOGEN NORMAL mg/dL (0.2-1.0)
--- NOTE | 2018-06-10 20:26 | C.PDOC ---
History Of Present Illness 32 year old female, whose past medical history includes HTN, Hyperlipidemia, and Pulmonary Embolism, presents to the ED for evaluation of pain to under her bilateral breasts and mid-back area which began this morning. Patient reports pain with movement and deep breathing. Patient states she has been off blood thinners for the past ten months. She also reports nausea. Patient notes she felt similar symptoms when she was diagnosed with pneumonia. She denies fever, chills, vomiting, abdominal pain, recent trauma/injuries. Time Seen by Provider: 06/10/18 18:08 Chief Complaint (Nursing): Shortness Of Breath History Per: Patient History/Exam Limitations: no limitations Onset/Duration Of Symptoms: Hrs Current Symptoms Are (Timing): Still Present Quality: "Pain" Past Medical History Reviewed: Historical Data, Nursing Documentation, Vital Signs Vital Signs: Last Vital Signs Temp 98.1 F 06/10/18 17:38 Pulse 115 H 06/10/18 19:39 Resp 20 06/10/18 19:39 BP 111/78 06/10/18 17:38 Pulse Ox 99 06/10/18 19:39 - Medical History PMH: Gastritis, HTN, Hypercholesterolemia, Pancreatitis, Pulmonary Embolism Denies: Diabetes, Hepatitis, HIV, Chronic Kidney Disease, Seizures, Sexually Transmitted Disease Surgical History: No Surg Hx - [facility] Procedures DETOXIFICATION SERVICES FOR SUBSTANCE ABUSE TREATMENT (06/18/17) GROUP AGRICULTURAL ENGINEERING TECHNOLOGIST FOR SUBSTANCE ABUSE TREATMENT, PSYCHOEDUCATION (06/18/17) INDIV PSYCHOTHERAPY FOR SUBSTANCE ABUSE, PSYCHOEDUCATION (06/18/17) MEDICATION MANAGEMENT (06/18/17) Family History: States: Unknown Family Hx - Social History Hx Tobacco Use: No Hx Alcohol Use: No Hx Substance Use: No - Immunization History Hx Tetanus Toxoid Vaccination: No Hx Influenza Vaccination: No Hx Pneumococcal Vaccination: No Review Of Systems Musculoskeletal: Positive for: Other (pain under bilateral breasts, mid-back ) Physical Exam - Physical Exam Appears: Non-toxic, No Acute Distress Skin: Normal Color, Warm, Dry Head: Atraumatic, Normacephalic Eye(s): bilateral: Normal Inspection Oral Mucosa: Moist Neck: Supple Chest: Symmetrical, No Deformity, No Tenderness Cardiovascular: Rhythm Regular, No Murmur, Other (tachycardia ) Respiratory: Normal Breath Sounds, No Rales, No Rhonchi, No Wheezing Gastrointestinal/Abdominal: Soft, No Tenderness, No Guarding, No Rebound Back: Paraspinal Tenderness (to mid-back region, bilaterally) Extremity: Normal ROM, Capillary Refill (less than 2 seconds ) Neurological/Psych: Oriented x3, Normal Speech, Normal Cognition ED Course And Treatment - Laboratory Results Result Diagrams: 06/10/18 19:06 06/10/18 19:06 Lab Results: PT 12.3 SECONDS (9.7-12.2) H 06/10/18 19:06 INR 1.1 06/10/18 19:06 APTT 25 SECONDS (21-34) 06/10/18 19:06 Troponin I 0.0210 ng/mL (0.00-0.120) 06/10/18 19:06 Total Bilirubin 1.7 mg/dL (0.2-1.3) H 06/10/18 19:06 AST 70 U/L (14-36) H 06/10/18 19:06 ALT 44 U/L (9-52) 06/10/18 19:06 Alkaline Phosphatase 58 U/L (38-126) 06/10/18 19:06 Total Protein 8.4 g/dL (6.3-8.3) H 06/10/18 19:06 Albumin 5.2 g/dL (3.5-5.0) H 06/10/18 19:06 Globulin 3.2 gm/dL (2.2-3.9) 06/10/18 19:06 Albumin/Globulin Ratio 1.7 (1.0-2.1) 06/10/18 19:06 Urine HCG, Qual Negative (NEGATIVE) 06/10/18 19:31 Urine HCG, Qual Negative (NEGATIVE) 06/10/18 19:31 ECG: Interpreted By Me, Viewed By Me ECG Rhythm: Sinus Tachycardia Interpretation Of ECG: Sinus Tachycardia atrate 122bpm. Normal intervals, normal axis. No ST elevations. Nonspecific T wave abnormalities. Rate From EC O2 Sat by Pulse Oximetry: 99 (on RA ) Pulse Ox Interpretation: Normal Medical Decision Making Medical Decision Making: Progress: Bloodwork, urinalysis, CT Angio, EKG ordered and reviewed. Potasium Chloride PO, Morphine IVP, and IV Fluids given. 22:10 - Spoke with Dr. Frederick who accepts the patient for admission to his service Disposition - Disposition - Scribe Statement The provider has reviewed the documentation as recorded by the Scribe (Charlotte Marquez) Provider Attestation: All medical record entries made by the Scribe were at my direction and personally dictated by me. I have reviewed the chart and agree that the record accurately reflects my personal performance of the history, physical exam, medical decision making, and the department course for this patient. I have also personally directed, reviewed, and agree with the discharge instructions and disposition.
[2018-06-10] MEDS ORDERED: Aspirin 325 mg EC Tablets PO STA (22:18)
[2018-06-10] MEDS: Morphine 4 MG/ML VIAL IV PRN (22:58)
[2018-06-11] MEDS ORDERED: Morphine 4 MG/ML VIAL ONE ×3 (03:13→11:59)
[2018-06-11] MEDS: Morphine 4 MG/ML VIAL IV PRN ×4 (03:13→18:23)
[2018-06-11 05:33] LABS: BASO % 0.4 % (0.0-2.0); EOS # 0.1 K/uL (0.0-0.7); EOS % 1.3 % (0.0-4.0); LYMPH # 3.1 K/uL (1.0-4.3); LYMPH % 53.4 % (20.0-40.0); MEAN CELL VOLUME 94.8 fL (81.0-99.0); MEAN CORPUSCULAR HEMOGLOBIN 32.3 pg (27.0-31.0); MEAN PLATELET VOLUME 7.7 fL (7.2-11.7); MONO # 0.4 K/uL (0.0-0.8); MONO % 7.7 % (0.0-10.0); NEUT # 2.1 K/uL (1.8-7.0); NEUT % 37.2 % (50.0-75.0); NRBC % 0.1 % (0.0-2.0); RBC 3.99 Mil/uL (3.80-5.20); RED CELL DISTRIBUTION WIDTH 12.1 % (11.5-14.5); WHITE BLOOD COUNT 5.7 K/uL (4.8-10.8)
[2018-06-11 05:47] LABS: HEMOGLOBIN 12.9 g/dL (11.0-16.0)
[2018-06-11 05:55] LABS: ALB/GLOB RATIO 1.6 (1.0-2.1); ALT/SGPT 29 U/L (9-52); AST/SGOT 40 U/L (14-36); BLOOD UREA NITROGEN 3 mg/dL (7-17); CALCIUM 8.4 mg/dl (8.6-10.4); GFR NON-AFRICAN AMERICAN > 60
--- NOTE | 2018-06-11 07:06 | CP.PCM.PN ---
Subjective - Date & Time of Evaluation Date of Evaluation: 06/11/18 Time of Evaluation: 07:06 - Subjective Subjective: Medicine Progress Note - Dr Frederick's Service Patient is a 32 year old female with past medical history of hypertension, hyperlipidemia, PE who presented to the emergency department for upper abdominal pain that radiates to the back. States that pain is located right under the breasts bilaterally. Patient states that symptoms started two days prior to admission. Patient reports pain with movement and deep breathing. She reports having two episodes of NBNB vomiting and episodes of watery diarrhea for the past 3 days. Last episode of diarrhea was yesterday. Denies any blood in the stool. Patient was diagnosied with PE in the past and is currently off anticoagulation. Currently states that abdominal pain has improved. Offers no other complaints at this time. Denies fevers/chills, cough, headaches, dizziness, cp, palpitations, sob, urinary symptoms, vaginal discharge. PMD: Dr Frederick Allergies: NKDA Medications: Lisiniopril/HCTZ 10-12.5mg PO daily, Lovaza 1 tab PO BID, Protonix 40mg PO daily Medical History: Hypertension, hyperlipidemia, PE Surgical History: Denies Social History: Denies tobacco, drug use; reports that she drinks wine occasionally, last drink was 3 months ago Family History: Mother - kidney infection; Sister - hernia Objective - Vital Signs/Intake and Output Vital Signs (last 24 hours): Temp Pulse Resp BP Pulse Ox 97.9 F 99 H 20 112/79 98 06/11/18 04:35 06/11/18 04:35 06/11/18 04:35 06/11/18 04:35 06/11/18 04:35 - Medications Medications: Current Medications Enoxaparin Sodium (Lovenox) 40 mg SC DAILY [facility] Potassium Chloride/Dextrose/Sod Cl (Potassium Chl 20 Meq In D5-1/2ns) 1,000 mls @ 100 mls/hr IV .Q10H [facility] Morphine Sulfate (Morphine) 3 mg IV Q4 PRN PRN Reason: Pain, severe (8-10) Last Admin: 06/11/18 03:13 Dose: 3 mg - Labs Labs: 06/11/18 05:20 06/11/18 05:20 PT 12.3 SECONDS (9.7-12.2) H 01/08/19 19:06 INR 1.1 06/10/18 19:06 APTT 25 SECONDS (21-34) 06/10/18 19:06 - Constitutional Appears: Non-toxic, No Acute Distress - Head Exam Head Exam: ATRAUMATIC, NORMAL INSPECTION, NORMOCEPHALIC - Eye Exam Eye Exam: EOMI, Normal appearance - ENT Exam ENT Exam: Mucous Membranes Moist - Neck Exam Neck Exam: Full ROM - Respiratory Exam Respiratory Exam: Clear to Ausculation Bilateral, NORMAL BREATHING PATTERN. absent: Rales, Rhonchi, Wheezes - Cardiovascular Exam Cardiovascular Exam: REGULAR RHYTHM, +S1, +S2 - GI/Abdominal Exam GI & Abdominal Exam: Soft, Tenderness (epigastric ), Normal Bowel Sounds. absent: Guarding, Rigid - Extremities Exam Extremities Exam: Full ROM, Normal Inspection. absent: Calf Tenderness - Back Exam Back Exam: CVA tenderness (R), tenderness - Neurological Exam Neurological Exam: Alert, Awake, Oriented x3 - Psychiatric Exam Psychiatric exam: Normal Affect, Normal Mood - Skin Skin Exam: Dry, Normal Color, Warm Assessment and Plan - Assessment and Plan (Free Text) Assessment: Patient is a 32 year old female with past medical history of PE, hypertension, hyperlipidemia who presented with upper abdominal pain, nausea/vomiting. Upper/Epigastric Abdominal Pain -Morphine 2mg Q6H prn severe pain -Lipase elevated 309, alcohol levels <10 -CT abdomen/pelvis: fatty liver (see full report) -UDS positive for opiates (was collected after receiving morphine) History of PE -EKG on admission sinus tachycardia, 122 bpm -Troponins negative x 2 -CTA was negative for PE -Patient has been off anticoagulation -Saturation on room air within normal limits Hypertension -Currently normatensive -Will monitor off her home medication at this time Hypokalemia -Potassium 3.5 today -We will monitor daily CMPs Elevated liver enzymes -Fatty liver on CT scan -Hepatitis panel negative DISPO: Will monitor overnight. Possible discharge home tomorrow 06/12/18 if medically stable. Plan discussed with Dr Yoly Rios DO PGY-2
[2018-06-11 07:31] LABS: HDL CHOLESTEROL 55 mg/dL (30-70); LIPASE 309 U/L (23-300)
[2018-06-11 07:42] LABS: LDL CHOLESTEROL 74 mg/dL (0-129)
[2018-06-11 08:46] LABS: HEPATITIS B SURFACE AG Negative (NEGATIVE)
[2018-06-11 08:51] LABS: HEPATITIS B CORE AB NEGATIVE (NEGATIVE)
[2018-06-11 08:52] LABS: HEPATITIS A IGM NEGATIVE (NEGATIVE)
[2018-06-11 09:03] LABS: HEPATITIS C ANTIBODY NEGATIVE (NEGATIVE)
--- NOTE | 2018-06-11 09:43 | CT ---
Date of service: 06/10/2018 PROCEDURE: CT Chest with contrast (Pulmonary Angiogram) HISTORY: CP; h/o PE COMPARISON: CT angiogram 05/26/2017. TECHNIQUE: Axial computed tomography images were obtained of the chest in the pulmonary arterial phase of enhancement. Coronal and sagittal reformatted images were created and reviewed. Intravenous contrast dose: Visipaque 320, 100 cc Radiation dose: Total exam DLP = 467.84 mGy-cm. This CT exam was performed using one or more of the following dose reduction techniques: Automated exposure control, adjustment of the mA and/or kV according to patient size, and/or use of iterative reconstruction technique. FINDINGS: PULMONARY ARTERIES: No significant interval change. No CT evidence of pulmonary embolism. AORTA: No acute findings. No thoracic aortic aneurysm. No aortic atherosclerotic calcification or mural plaque present. LUNGS: Unremarkable. No nodule, mass or pulmonary consolidation. PLEURAL SPACES: Unremarkable. No effusion or pneumothorax. HEART: Unremarkable. No cardiomegaly. No significant pericardial effusion. LYMPH NODES: No lymphadenopathy. BONES, CHEST WALL: Unremarkable. No fracture or destructive lesion OTHER FINDINGS: Hepatic steatosis incidentally noted in the upper abdomen section incidentally captured. IMPRESSION: Unremarkable CT pulmonary angiogram. No pulmonary embolus. Incidental hepatic steatosis identified once again. Concordant preliminary report from [facility], 06/10/2018 8:48 p.m..
[2018-06-11 09:50] LABS: BARBITURATES, UR NEGATIVE (NEGATIVE); BENZODIAZEPINES, UR NEGATIVE (NEGATIVE); PHENCYCLIDINE, UR NEGATIVE (NEGATIVE)
[2018-06-11 10:15] LABS: OPIATES, UR POSITIVE (NEGATIVE)
[2018-06-11] MEDS: Enoxaparin 40 mg Syringe SC SCH (10:24)
[2018-06-11] MEDS: Potassium Ch 20mEq in D5-1/2NS 1,000 ML IV SCH ×3 (10:24→21:19)
[2018-06-11 15:59] VITALS: RESP 20
[2018-06-11] MEDS ORDERED: Vitamins A & D Oint UD Foilpak TOP PRN (17:29)
[2018-06-11] MEDS ORDERED: Morphine 4 MG/ML VIAL IV SCH (18:00)
[2018-06-12] MEDS: Morphine 4 MG/ML VIAL IV PRN ×3 (00:21→12:40)
[2018-06-12] MEDS: Potassium Ch 20mEq in D5-1/2NS 1,000 ML IV SCH (06:28)
--- NOTE | 2018-06-12 06:38 | HP ---
HISTORY OF PRESENT ILLNESS: The patient presented to the hospital with complaints of chest pain, abdominal pain, tachycardia. The patient is a 32-year-old female with history of pancreatitis in the past. The patient came to the ER and advised admission. PHYSICAL EXAMINATION: GENERAL: The patient is awake, alert, and oriented. VITAL SIGNS: Temperature 98, pulse 90. HEENT: Within normal limits. NECK: Supple. CHEST: Symmetrical. HEART: Regular. ABDOMEN: Soft. EXTREMITIES: No edema. ASSESSMENT AND PLAN: The patient suffers from hyperlipidemia, abdominal pain, pancreatitis. The patient on bed rest, supportive care, clear fluids. Repeat the electrolytes. Dianelys Frederick MD
--- NOTE | 2018-06-12 07:19 | CP.PCM.PN ---
Subjective - Date & Time of Evaluation Date of Evaluation: 06/12/18 Time of Evaluation: 07:18 - Subjective Subjective: Medicine Progress Note - Dr Frederick's Service Patient seen and examined at bedside. Per nursing no acute events overnight. Patient was complaining of gas pain that has since improved. States that upper abdominal pain/soreness has also improved. Wants to go home. Offers no other complaints at this time. Objective - Vital Signs/Intake and Output Vital Signs (last 24 hours): Temp Pulse Resp BP Pulse Ox 98 F 69 20 122/86 98 06/11/18 23:05 06/11/18 23:05 06/11/18 23:05 06/11/18 23:05 06/11/18 23:05 Intake and Output: 06/12/18 06/12/18 06:59 18:59 Intake Total 800 Balance 800 - Medications Medications: Current Medications Dicyclomine HCl (Bentyl) 20 mg PO Q8H PRN PRN Reason: GAS PAIN Last Admin: 06/11/18 21:17 Dose: 20 mg Enoxaparin Sodium (Lovenox) 40 mg SC DAILY [facility] Last Admin: 06/11/18 10:24 Dose: 40 mg Potassium Chloride/Dextrose/Sod Cl (Potassium Chl 20 Meq In D5-1/2ns) 1,000 mls @ 100 mls/hr IV .Q10H [facility] Last Admin: 06/12/18 06:28 Dose: 100 mls/hr Morphine Sulfate (Morphine) 2 mg IV Q6 PRN PRN Reason: Pain, severe (8-10) Last Admin: 06/12/18 06:26 Dose: 2 mg Pantoprazole Sodium (Protonix Inj) 40 mg IVP DAILY [facility] Last Admin: 06/11/18 10:23 Dose: 40 mg Vitamin A (Vitamin A & D Oint Ud Foilpak) 0.5 ea TOP Q4 PRN PRN Reason: DRY LIPS Last Admin: 06/11/18 18:19 Dose: 0.5 ea - Labs Labs: 06/11/18 05:20 06/11/18 05:20 PT 12.3 SECONDS (9.7-12.2) H 06/10/18 19:06 INR 1.1 06/10/18 19:06 APTT 25 SECONDS (21-34) 06/10/18 19:06 - Constitutional Appears: Non-toxic, No Acute Distress - Head Exam Head Exam: ATRAUMATIC, NORMAL INSPECTION, NORMOCEPHALIC - Eye Exam Eye Exam: EOMI, Normal appearance - ENT Exam ENT Exam: Mucous Membranes Moist - Respiratory Exam Respiratory Exam: Clear to Ausculation Bilateral, NORMAL BREATHING PATTERN. absent: Rales, Rhonchi, Wheezes - Cardiovascular Exam Cardiovascular Exam: REGULAR RHYTHM, +S1, +S2 - GI/Abdominal Exam GI & Abdominal Exam: Soft, Tenderness (mild epigastric), Normal Bowel Sounds. absent: Firm, Guarding, Rigid Additional comments: +bloated - Extremities Exam Extremities Exam: Full ROM. absent: Calf Tenderness - Back Exam Back Exam: NORMAL INSPECTION - Neurological Exam Neurological Exam: Alert, Awake, Oriented x3 - Psychiatric Exam Psychiatric exam: Normal Affect, Normal Mood - Skin Skin Exam: Dry, Normal Color, Warm Assessment and Plan - Assessment and Plan (Free Text) Assessment: Patient is a 32 year old female with past medical history of PE, hypertension, hyperlipidemia who presented with upper abdominal pain, nausea/vomiting. Upper/Epigastric Abdominal Pain -Improving -Bentyl 20mg PO Q8H prn gas pain -Abdominal US: Echogenic liver may be seen in setting of hepatic parenchymal disease or fatty infiltration (see full report) -Morphine 2mg Q6H prn severe pain -Lipase elevated 309, alcohol levels <10 -CT abdomen/pelvis: fatty liver (see full report) -UDS positive for opiates (was collected after receiving morphine) -Patient states that last drink was 05/25/18, discussed with the patient that she needs to abstain from alcohol completely History of PE -EKG on admission sinus tachycardia, 122 bpm -Troponins negative x 2 -CTA was negative for PE -Patient has been off anticoagulation -Saturation on room air within normal limits Hypertension -Currently normatensive -Will monitor off her home medication at this time Hypokalemia -Potassium 3.5 yesterday -We will monitor daily CMPs Elevated TSH -TSH 9.45 on admission -Repeat within normal limits -Asymptomatic Elevated liver enzymes -Fatty liver on CT scan -Hepatitis panel negative DISPO: Possible discharge home this afternoon. Patient to follow up with Dr Frederick in 2-3 days. Plan discussed with Dr Yoly Rios DO PGY-2
[2018-06-12 07:57] VITALS: BP 120/77; PULSE 83; TEMP 98.2; O2SAT 96
[2018-06-12] MEDS: Enoxaparin 40 mg Syringe SC SCH (11:02)
--- NOTE | 2018-06-12 11:32 | US ---
HISTORY: Abdominal pain COMPARISON: Abdominal ultrasound performed 05/26/17 TECHNIQUE: Sonographic evaluation of the abdomen. FINDINGS: LIVER: Measures 17.3 cm in sagittal dimension. Echogenic liver may be seen in setting of hepatic parenchymal disease or fatty infiltration. No focal hepatic mass identified. The main portal vein appears patent with normal directional flow. No intrahepatic bile duct dilatation. GALLBLADDER: No gallstones. No gallbladder wall thickening. Negative sonographic Solomon's sign as assessed by the technical services librarian. COMMON BILE DUCT: Measures 4 mm. PANCREAS: Not well visualized. RIGHT KIDNEY: Measures 10.6 x 5.3 x 5.1 cm. No obstructing calculus or hydronephrosis identified. LEFT KIDNEY: Measures 10.8 x 6.7 x 5.5 cm. No obstructing calculus or hydronephrosis identified. SPLEEN: Measures approximately 9.7 cm. AORTA: Limited views appear unremarkable. IVC: Limited views appear unremarkable. OTHER FINDINGS: None. IMPRESSION: Echogenic liver may be seen in setting of hepatic parenchymal disease or fatty infiltration.
[2018-06-12 14:25] LABS: BASO % 0.6 % (0.0-2.0); EOS # 0.1 K/uL (0.0-0.7); EOS % 2.1 % (0.0-4.0); HEMOGLOBIN 11.9 g/dL (11.0-16.0); LYMPH # 2.5 K/uL (1.0-4.3); LYMPH % 53.8 % (20.0-40.0); MEAN CORPUSCULAR HEMOGLOBIN 33.2 pg (27.0-31.0); MEAN CORPUSCULAR HGB CONC 34.6 g/dL (33.0-37.0); MEAN PLATELET VOLUME 7.8 fL (7.2-11.7); MONO # 0.3 K/uL (0.0-0.8); MONO % 5.7 % (0.0-10.0); NEUT # 1.7 K/uL (1.8-7.0); NEUT % 37.8 % (50.0-75.0); RBC 3.58 Mil/uL (3.80-5.20); RED CELL DISTRIBUTION WIDTH 12.1 % (11.5-14.5); WHITE BLOOD COUNT 4.6 K/uL (4.8-10.8)
[2018-06-12 14:38] LABS: ALB/GLOB RATIO 1.6 (1.0-2.1); ALBUMIN 3.9 g/dL (3.5-5.0); ALT/SGPT 30 U/L (9-52); AST/SGOT 42 U/L (14-36); BLOOD UREA NITROGEN 3 mg/dL (7-17); CALCIUM 8.6 mg/dl (8.6-10.4); GFR NON-AFRICAN AMERICAN > 60
== END 2018-06-12 16:32 | disposition home or self-care (01) | DRG 282 ==
LOC: C.ER 17:36 → C.9E 22:19 → C.6T 06-11 13:05
PROVIDERS: ADMIT Internal Medicine Pulmonary Disease; ATTEND Internal Medicine Pulmonary Disease
DX: K85.90 Acute pancreatitis without necrosis or infection, unspecified (principal); K76.0 Fatty (change of) liver, not elsewhere classified; R07.9 Chest pain, unspecified; I10 Essential (primary) hypertension; E87.6 Hypokalemia; E78.5 Hyperlipidemia, unspecified; E78.00 Pure hypercholesterolemia, unspecified; Z86.711 Personal history of pulmonary embolism

== ENCOUNTER 2018-06-28 05:24 | Emergency (ER) | payer OTHER ==
[2018-06-28 05:25] VITALS: BMI 28.0
[2018-06-28] MEDS ORDERED: Tramadol 25 mg PO STA (06:25)
--- NOTE | 2018-06-28 06:28 | C.PDOC ---
History Of Present Illness 32 year old female presents to the ED c/o bilateral thigh pain that woke her up from sleep. Patient describes her pain as cramping and tightness to anterior thighs. Patient reports she took one 325 Tylenol with no relief. Patient denies fever, chills, weakness, numbness, CP, SOB, injury, fall, recent immobility state, recent travel, or trauma. <Thu Owens - Last Filed: 06/30/18 03:27> <Yessica Brooks - Last Filed: 06/28/18 10:44> History Per: Patient History/Exam Limitations: no limitations Onset/Duration Of Symptoms: Hrs Current Symptoms Are (Timing): Still Present Recent travel outside of the [place]: No Additional History Per: Patient <Thu Owens - Last Filed: 06/30/18 03:27> Time Seen by Provider: 06/28/18 05:55 Chief Complaint (Nursing): Lower Extremity Problem/Injury Past Medical History Vital Signs: Last Vital Signs Temp 97.3 F L 06/28/18 05:36 Pulse 102 H 06/28/18 05:36 Resp 20 06/28/18 05:36 BP 127/94 H 06/28/18 05:36 Pulse Ox 99 06/28/18 06:56 - [facility] Procedures DETOXIFICATION SERVICES FOR SUBSTANCE ABUSE TREATMENT (06/18/17) GROUP SNOWMOBILE MECHANIC FOR SUBSTANCE ABUSE TREATMENT, PSYCHOEDUCATION (06/18/17) INDIV PSYCHOTHERAPY FOR SUBSTANCE ABUSE, PSYCHOEDUCATION (06/18/17) MEDICATION MANAGEMENT (06/18/17) <Yessica Brooks - Last Filed: 06/28/18 10:44> Reviewed: Historical Data, Nursing Documentation, Vital Signs Vital Signs: Last Vital Signs Temp 97.3 F L 06/28/18 05:36 Pulse 102 H 06/28/18 05:36 Resp 20 06/28/18 05:36 BP 127/94 H 06/28/18 05:36 Pulse Ox 99 06/28/18 05:36 - Medical History PMH: Gastritis, HTN, Hypercholesterolemia, Pancreatitis, Pulmonary Embolism Denies: Diabetes, Hepatitis, HIV, Chronic Kidney Disease, Seizures, Sexually Transmitted Disease Surgical History: No Surg Hx - [facility] Procedures DETOXIFICATION SERVICES FOR SUBSTANCE ABUSE TREATMENT (06/18/17) GROUP SNOWMOBILE MECHANIC FOR SUBSTANCE ABUSE TREATMENT, PSYCHOEDUCATION (06/18/17) INDIV PSYCHOTHERAPY FOR SUBSTANCE ABUSE, PSYCHOEDUCATION (06/18/17) MEDICATION MANAGEMENT (06/18/17) Family History: States: Unknown Family Hx - Social History Hx Tobacco Use: No Hx Alcohol Use: No Hx Substance Use: No - Immunization History Hx Tetanus Toxoid Vaccination: No Hx Influenza Vaccination: No Hx Pneumococcal Vaccination: No <Thu Owens - Last Filed: 06/30/18 03:27> Review Of Systems Constitutional: Negative for: Fever, Chills Cardiovascular: Negative for: Chest Pain, Palpitations Respiratory: Negative for: Shortness of Breath Gastrointestinal: Negative for: Nausea, Vomiting, Abdominal Pain Musculoskeletal: Positive for: Leg Pain Skin: Negative for: Rash Neurological: Negative for: Weakness, Numbness <Thu Owens - Last Filed: 06/30/18 03:27> Physical Exam - Physical Exam Appears: Non-toxic, No Acute Distress Skin: Normal Color, Warm, Dry Head: Atraumatic, Normacephalic Eye(s): bilateral: Normal Inspection Neck: Normal ROM, Supple Chest: Symmetrical Cardiovascular: Rhythm Regular Respiratory: Normal Breath Sounds, No Rales, No Rhonchi, No Wheezing Extremity: Normal ROM, Tenderness (bilateral anterior thighs), No Calf Tenderness, Capillary Refill (< 2 seconds), No Swelling, Other (no erythema) Pulses: Left Dorsalis Pedis: Normal, Right Dorsalis Pedis: Normal Neurological/Psych: Oriented x3, Normal Speech, Normal Cognition, Normal Motor, Normal Sensation Gait: Steady <Thu Owens - Last Filed: 06/30/18 03:27> ED Course And Treatment - Laboratory Results Result Diagrams: 06/28/18 08:03 06/28/18 08:03 <Yessica Brooks - Last Filed: 06/28/18 10:44> - Laboratory Results Result Diagrams: 06/28/18 08:03 06/28/18 08:03 O2 Sat by Pulse Oximetry: 99 (ON RA) Pulse Ox Interpretation: Normal Progress Note: Plan: - Zofran 4 mg PO. - Tramadol 50 mg PO. Pt will continue same meds at home and advised follow up in clinicor PMD. return precautions given <GracielaThu - Last Filed: 06/30/18 03:27> Disposition Counseled Patient/Family Regarding: Studies Performed, Diagnosis, Need For Followup, Rx Given <CeciliaYessica - Last Filed: 06/28/18 10:44> - Disposition Disposition Time: 06:43 <SagrarioCourtneyThu Bui - Last Filed: 06/30/18 03:27> - Disposition Referrals: [facility] [Outside] Dianelys Frederick MD [Staff Provider] - Disposition: HOME/ ROUTINE Condition: IMPROVED Additional Instructions: Please follow up with Dr Frederick on Saturday Take medications as directed. Return to ER if worse Prescriptions: Methocarbamol [Robaxin] 750 mg PO BID #10 tab Naproxen 375 mg PO BID #20 tab Ondansetron ODT [Zofran ODT] 4 mg PO TID #12 odt traMADol [Ultram] 50 mg PO TID #15 tab Instructions: Muscle Spasms (DC) Forms: [employer] (Uzbek), General Discharge Instructions - Clinical Impression Clinical Impression: Bilateral thigh pain, Lumbar paraspinal muscle spasm - PA / HYBRID POWERTRAIN DEVELOPMENT ENGINEER / Resident Statement MD/DO has reviewed & agrees with the documentation as recorded. - Scribe Statement The provider has reviewed the documentation as recorded by the Scribe Lalo Wheeler All medical record entries made by the Scribe were at my direction and personally dictated by me. I have reviewed the chart and agree that the record accurately reflects my personal performance of the history, physical exam, medical decision making, and the department course for this patient. I have also personally directed, reviewed, and agree with the discharge instructions and disposition. <GracielaThu - Last Filed: 06/30/18 03:27> Addendum Addendum: 06/28/18 08:24 pt was about to be discharged, however, still c/o pain and vomiting; sts she threw up tramadol, saw it in vomitus. pt re-examined, +left lumbar spasm, from of legs, mild anterior b/l thigh tenderness with no signs of infection, no erythema, no warmth, no swelling. labs ordered to check electrolytes, iv fluids and toradol given. will re-eval pt. 06/28/18 10:52 1052 am pt now resting comfortably, in no acute distress. pt tolerated po fluids and medication. recevied one liter ns and no longer feels dehydrated. will d/c home with nsaids and flexeril with pmd f/u in 1-2 days. <Yessica Brooks - Last Filed: 06/28/18 10:44>
[2018-06-28] MEDS ORDERED: Sodium Chloride 0.9% 1,000 ML IV ONE (07:52)
[2018-06-28] MEDS ORDERED: Sodium Chloride 0.9% 1,000 ML ONE (08:05)
[2018-06-28 08:11] LABS: BASO % 0.7 % (0.0-2.0); EOS % 0.2 % (0.0-4.0); LYMPH # 1.8 K/uL (1.0-4.3); LYMPH % 27.8 % (20.0-40.0); MEAN CELL VOLUME 94.2 fL (81.0-99.0); MEAN CORPUSCULAR HEMOGLOBIN 32.3 pg (27.0-31.0); MEAN CORPUSCULAR HGB CONC 34.2 g/dL (33.0-37.0); MONO # 0.4 K/uL (0.0-0.8); MONO % 6.6 % (0.0-10.0); NEUT # 4.1 K/uL (1.8-7.0); NEUT % 64.7 % (50.0-75.0); NRBC % 0.1 % (0.0-2.0); RBC 4.95 Mil/uL (3.80-5.20); RED CELL DISTRIBUTION WIDTH 12.1 % (11.5-14.5); WHITE BLOOD COUNT 6.4 K/uL (4.8-10.8)
[2018-06-28 08:37] LABS: ALB/GLOB RATIO 1.7 (1.0-2.1); ALBUMIN 5.6 g/dL (3.5-5.0); ALT/SGPT 42 U/L (9-52); AST/SGOT 46 U/L (14-36); BLOOD UREA NITROGEN 17 mg/dL (7-17); GFR NON-AFRICAN AMERICAN > 60
[2018-06-28 10:11] VITALS: BP 104/70; PULSE 95; RESP 18; TEMP 97.8
[2018-06-30 03:27] VITALS: O2SAT 99
== END 2018-06-28 11:10 | disposition home or self-care (01) ==
LOC: C.ER 05:24
DX: M79.652 Pain in left thigh (principal); M79.651 Pain in right thigh; M62.830 Muscle spasm of back
CPT/HCPCS: 80053; 81025; 85025; 96374; 99285; J1885; J7030

== ENCOUNTER 2018-09-25 11:43 | Emergency (ER) | payer BC, OTHER ==
[2018-09-25 11:43] VITALS: BMI 28.0
[2018-09-25 12:03] VITALS: TEMP 98.2
[2018-09-25 13:05] LABS: BASO % 0.9 % (0.0-2.0); EOS # 0.1 K/uL (0.0-0.7); EOS % 2.1 % (0.0-4.0); HEMOGLOBIN 14.1 g/dL (11.0-16.0); LYMPH # 2.4 K/uL (1.0-4.3); LYMPH % 48.9 % (20.0-40.0); MEAN CELL VOLUME 92.6 fL (81.0-99.0); MEAN CORPUSCULAR HEMOGLOBIN 32.6 pg (27.0-31.0); MEAN CORPUSCULAR HGB CONC 35.2 g/dL (33.0-37.0); MEAN PLATELET VOLUME 7.8 fL (7.2-11.7); MONO # 0.3 K/uL (0.0-0.8); NEUT # 2.1 K/uL (1.8-7.0); NEUT % 42.1 % (50.0-75.0); NRBC % 0.2 % (0.0-2.0); RBC 4.33 Mil/uL (3.80-5.20); RED CELL DISTRIBUTION WIDTH 12.1 % (11.5-14.5)
[2018-09-25 13:20] LABS: ALB/GLOB RATIO 1.6 (1.0-2.1); BLOOD UREA NITROGEN 9 mg/dL (7-17); CALCIUM 9.9 mg/dl (8.6-10.4); GFR NON-AFRICAN AMERICAN > 60
[2018-09-25 13:24] LABS: ALT/SGPT 44 U/L (9-52); AST/SGOT 87 U/L (14-36)
[2018-09-25] MEDS ORDERED: Iodixanol 320 MG/ML 100 ML BOTTLE IV ONE (13:55)
--- NOTE | 2018-09-25 15:04 | CT ---
Date of service: 09/25/2018 CTA chest PE protocol Indication: chest pain r/o PE Technique: Contiguous axial images were obtained through the chest with intravenous contrast enhancement. Sagittal and coronal reconstructions were generated and reviewed. This CT exam was performed using 1 or more of the following dose reduction techniques: Automated exposure control, adjustment of the MAA and/or kV according to patient size, and/or use of iterative reconstruction technique. IV contrast: 100 mL Visipaque 320 IV Radiation dose (DLP): 466.2 MGy-cm. Comparison: CTA chest performed 06/10/18 Findings: Visualized portions of the inferior thyroid gland appear unremarkable. The mediastinal and hilar vascular structures appear within normal limits. The heart appears within normal limits of size. No large central or segmental pulmonary embolus evident. No focal consolidation. No pleural effusion. No pneumothorax. No suspicious pulmonary nodules measuring greater than 5 mm. Limited visualized portions of the upper abdomen: Hypoattenuation of the liver compatible with hepatic steatosis. Impression: No large central or segmental pulmonary embolus evident. Hepatic steatosis.
[2018-09-25 15:27] VITALS: BP 134/86; PULSE 92; RESP 19; O2SAT 100
--- NOTE | 2018-09-25 17:32 | C.PDOC ---
Chief Complaint (Nursing): Chest Pain History Per: Patient History/Exam Limitations: no limitations Onset/Duration Of Symptoms: Days (1) Current Symptoms Are (Timing): Still Present Past Medical History Reviewed: Historical Data, Nursing Documentation, Vital Signs Vital Signs: Last Vital Signs Temp 98.2 F 09/25/18 11:49 Pulse 92 H 09/25/18 15:25 Resp 19 09/25/18 15:25 BP 134/86 09/25/18 15:25 Pulse Ox 100 09/25/18 15:25 - Medical History PMH: Gastritis, HTN, Hypercholesterolemia, Pancreatitis, Pulmonary Embolism Denies: Diabetes, Hepatitis, HIV, Chronic Kidney Disease, Seizures, Sexually Transmitted Disease Surgical History: No Surg Hx - [facility] Procedures DETOXIFICATION SERVICES FOR SUBSTANCE ABUSE TREATMENT (06/18/17) GROUP ELECTRIC SCOOP OPERATOR FOR SUBSTANCE ABUSE TREATMENT, PSYCHOEDUCATION (06/18/17) INDIV PSYCHOTHERAPY FOR SUBSTANCE ABUSE, PSYCHOEDUCATION (06/18/17) MEDICATION MANAGEMENT (06/18/17) Family History: States: Unknown Family Hx - Social History Hx Tobacco Use: No Hx Alcohol Use: Yes Hx Substance Use: No - Immunization History Hx Tetanus Toxoid Vaccination: No Hx Influenza Vaccination: No Hx Pneumococcal Vaccination: Yes (2018) Physical Exam - Physical Exam Appears: Non-toxic, No Acute Distress Skin: Warm, Dry Head: Atraumatic, Normacephalic Oral Mucosa: Moist Chest: Symmetrical, No Deformity Cardiovascular: Rhythm Regular Respiratory: Normal Breath Sounds Gastrointestinal/Abdominal: Normal Exam, Soft, No Tenderness Extremity: Normal ROM Neurological/Psych: Oriented x3 ED Course And Treatment - Laboratory Results Result Diagrams: 09/25/18 12:55 09/25/18 12:55 Lab Results: Troponin I < 0.0120 ng/mL (0.00-0.120) 09/25/18 12:55 Total Bilirubin 0.8 mg/dL (0.2-1.3) 09/25/18 12:55 AST 87 U/L (14-36) H D 09/25/18 12:55 ALT 44 U/L (9-52) 09/25/18 12:55 Alkaline Phosphatase 48 U/L (38-126) 09/25/18 12:55 Total Protein 8.0 g/dL (6.3-8.3) 09/25/18 12:55 Albumin 5.0 g/dL (3.5-5.0) 09/25/18 12:55 Globulin 3.0 gm/dL (2.2-3.9) 09/25/18 12:55 Albumin/Globulin Ratio 1.6 (1.0-2.1) 09/25/18 12:55 ECG: Interpreted By Me, Viewed By Me ECG Rhythm: Sinus Rhythm Interpretation Of ECG: Normal axis intervals Rate From EC O2 Sat by Pulse Oximetry: 100 (on RA) Pulse Ox Interpretation: Normal - CT Scan/US CAT Angio Other Rad Studies (CT/US): Read By Radiologist, Radiology Report Reviewed CT/US Interpretation: Impression: No large central or segmental pulmonary embolus evident. Hepatic steatosis. Medical Decision Making Medical Decision Making: Plan: EKG CAT Angio Labs Patient instructed to follow up with PMD. Disposition - Disposition Referrals: Alexandro Frederick MD [Medical Doctor] - Disposition: HOME/ ROUTINE Condition: GOOD Additional Instructions: CARA STONE, thank you for letting us take care of you today. The emergency medical care you received today was directed at your acute symptoms. If you were prescribed any medication, please fill it and take as directed. It may take several days for your symptoms to resolve. Return to the Emergency Department if your symptoms worsen, do not improve, or if you have any other problems. Please contact your doctor or call one of the physicians/clinics you have been referred to that are listed on the Patient Visit Information form that is included in your discharge packet. Bring any paperwork you were given at discharge with you along with any medications you are taking to your follow up visit. Our treatment cannot replace ongoing medical care by a primary care provider outside of the emergency department. Thank you for allowing the [facility] team to be part of your care today. Follow up with your primary care doctor in 2-3 days for re-evaluation and further management. Instructions: Chest Pain That Is Not Caused by the Heart (DC) Forms: [employer] (Turkmen) - Scribe Statement The provider has reviewed the documentation as recorded by the Russell Benz All medical record entries made by the Scribe were at my direction and personally dictated by me. I have reviewed the chart and agree that the record accurately reflects my personal performance of the history, physical exam, medical decision making, and the department course for this patient. I have also personally directed, reviewed, and agree with the discharge instructions and disposition.
--- NOTE | 2018-09-25 17:37 | C.PDOC ---
History Of Present Illness Patient is a 32 year old female, with a PMHx of pulmonary embolism, who presents to the ED c/o left sided CP for 1 day that is described as sharp in nature. Patient was on Eliquis for 6 months, but is not currently taking the medication. She also reports being on an airplane 1 week ago. Patient denies any SOB, fever, or cough. Chief Complaint (Nursing): Chest Pain History Per: Patient History/Exam Limitations: no limitations Onset/Duration Of Symptoms: Days (1) Current Symptoms Are (Timing): Still Present Quality: Sharp, "Pain" Recent travel outside of the [place]: No Additional History Per: Patient Past Medical History Reviewed: Historical Data, Nursing Documentation, Vital Signs Vital Signs: Last Vital Signs Temp 98.2 F 09/25/18 11:49 Pulse 92 H 09/25/18 15:25 Resp 19 09/25/18 15:25 BP 134/86 09/25/18 15:25 Pulse Ox 100 09/25/18 17:36 - Medical History PMH: Gastritis, HTN, Hypercholesterolemia, Pancreatitis, Pulmonary Embolism Denies: Diabetes, Hepatitis, HIV, Chronic Kidney Disease, Seizures, Sexually Transmitted Disease Surgical History: No Surg Hx - [facility] Procedures DETOXIFICATION SERVICES FOR SUBSTANCE ABUSE TREATMENT (06/18/17) 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 Constitutional: Negative for: Fever, Chills Cardiovascular: Positive for: Chest Pain (left sided sharp) Respiratory: Negative for: Cough, Shortness of Breath Gastrointestinal: Negative for: Nausea, Vomiting, Abdominal Pain, Diarrhea Physical Exam - Physical Exam Appears: Non-toxic, No Acute Distress Skin: Warm, Dry Head: Atraumatic, Normacephalic Oral Mucosa: Moist Neck: Supple Chest: Symmetrical, No Deformity Cardiovascular: Rhythm Regular Respiratory: Normal Breath Sounds Gastrointestinal/Abdominal: Normal Exam, Soft, No Tenderness Extremity: Normal ROM Neurological/Psych: Oriented x3 ED Course And Treatment - Laboratory Results Result Diagrams: 09/25/18 12:55 09/25/18 12:55 Lab Results: Troponin I < 0.0120 ng/mL (0.00-0.120) 09/25/18 12:55 Total Bilirubin 0.8 mg/dL (0.2-1.3) 09/25/18 12:55 AST 87 U/L (14-36) H D 09/25/18 12:55 ALT 44 U/L (9-52) 09/25/18 12:55 Alkaline Phosphatase 48 U/L (38-126) 09/25/18 12:55 Total Protein 8.0 g/dL (6.3-8.3) 09/25/18 12:55 Albumin 5.0 g/dL (3.5-5.0) 09/25/18 12:55 Globulin 3.0 gm/dL (2.2-3.9) 09/25/18 12:55 Albumin/Globulin Ratio 1.6 (1.0-2.1) 09/25/18 12:55 ECG: Viewed By Me, Discussed With Hydraulic Barker Operator ECG Rhythm: Sinus Rhythm Interpretation Of ECG: Normal axis intervals Rate From EC O2 Sat by Pulse Oximetry: 100 (on RA) - CT Scan/US CAT Angio Other Rad Studies (CT/US): Read By Radiologist, Radiology Report Reviewed CT/US Interpretation: Impression: No large central or segmental pulmonary embolus evident. Hepatic steatosis. Medical Decision Making Medical Decision Making: Plan: EKG CAT Angio Labs Patient instructed to follow up with PMD. Disposition - Disposition Referrals: Alexandro Frederick MD [Medical Doctor] - Disposition: HOME/ ROUTINE Disposition Time: 15:00 Condition: GOOD Additional Instructions: CARA STONE, thank you for letting us take care of you today. The emergency medical care you received today was directed at your acute symptoms. If you were prescribed any medication, please fill it and take as directed. It may take several days for your symptoms to resolve. Return to the Emergency Department if your symptoms worsen, do not improve, or if you have any other problems. Please contact your doctor or call one of the physicians/clinics you have been referred to that are listed on the Patient Visit Information form that is included in your discharge packet. Bring any paperwork you were given at discharge with you along with any medications you are taking to your follow up visit. Our treatment cannot replace ongoing medical care by a primary care provider outside of the emergency department. Thank you for allowing the [facility] team to be part of your care today. Follow up with your primary care doctor in 2-3 days for re-evaluation and further management. Instructions: Chest Pain That Is Not Caused by the Heart (DC) Forms: KROGNI (Hong Konger) - Clinical Impression Clinical Impression: Atypical chest pain - Scribe Statement The provider has reviewed the documentation as recorded by the Russell Benz All medical record entries made by the Russell were at my direction and personally dictated by me. I have reviewed the chart and agree that the record accurately reflects my personal performance of the history, physical exam, medical decision making, and the department course for this patient. I have also personally directed, reviewed, and agree with the discharge instructions and disposition.
--- NOTE | 2018-09-27 10:40 | CARD ---
APPROVED REPORT Date of service: 09/25/2018 EKG Measurement Heart [id number] <Conclusion> Normal sinus rhythm Normal ECG
== END 2018-09-25 15:48 | disposition home or self-care (01) ==
LOC: C.ER 11:43
DX: R07.89 Other chest pain (principal); I10 Essential (primary) hypertension; E78.00 Pure hypercholesterolemia, unspecified; Z86.711 Personal history of pulmonary embolism; Z79.01 Long term (current) use of anticoagulants
CPT/HCPCS: 71275; 80053; 81025; 84484; 85025; 93005; 99285; Q9967

== ENCOUNTER 2018-10-22 08:26 | Observation (INO) | payer BC, OTHER ==
[2018-10-22 08:26] VITALS: BMI 28.0
[2018-10-22] MEDS ORDERED: Sodium Chloride 0.9% 1,000 ML IV ONE (09:03)
--- NOTE | 2018-10-22 09:07 | C.PDOC ---
History Of Present Illness NEW ONSET GEN ABD PAIN, VOMITING SINCE YEST. GENERALIZED, INTERMIT "COMES IN WAVES". +ASSOC NV, BLOATING. +ASSOC URGE TO DEFECATE BUT DENIES DIARRHEA. DENIES ABD SURG. NO FEVER, UTI SX. COMPLIANT W "ANTACID MEDICINE" X 2 YRS. NO LONGER ON ANTICOAT FOR PE. LMP CURRENT GASTRITIS, HTN, Hyperlipidemia, and Pulmonary Embolism EXAM MOD DIST NONTOXIC HEENT ANICTERIC MMM NARD CV RRR ABD SOFT NO R/G , MIN DISTENTION NO TENTING REMAINDER NEG MDM ABD PAIN HO COAGULOPATHY. NO PRIOR ABD SURG. CT A/P RO MESENTERIC ISCHEMIA, EKG, LABS Time Seen by Provider: 10/22/18 08:40 Chief Complaint (Nursing): Abdominal Pain History Per: Patient History/Exam Limitations: no limitations Onset/Duration Of Symptoms: Days Current Symptoms Are (Timing): Still Present Severity: Moderate Past Medical History Reviewed: Historical Data, Nursing Documentation, Vital Signs Vital Signs: Last Vital Signs Temp 98.7 F 10/22/18 08:27 Pulse 89 10/22/18 08:27 Resp 19 10/22/18 08:27 BP 130/92 H 10/22/18 08:27 Pulse Ox 100 10/22/18 08:27 - Medical History PMH: Gastritis, HTN, Hypercholesterolemia, Pancreatitis, Pulmonary Embolism Denies: Diabetes, Hepatitis, HIV, Chronic Kidney Disease, Seizures, Sexually Transmitted Disease Surgical History: No Surg Hx - [facility] Procedures DETOXIFICATION SERVICES FOR SUBSTANCE ABUSE TREATMENT (06/18/17) 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 Constitutional: Negative for: Fever, Chills Gastrointestinal: Positive for: Nausea, Vomiting, Abdominal Pain Genitourinary: Negative for: Dysuria, Hematuria Physical Exam - Physical Exam Appears: Non-toxic, Other (moderate distress) Skin: Normal Color, Warm, Dry Head: Atraumatic, Normacephalic Eye(s): bilateral: Normal Inspection, Other (anicteric) Oral Mucosa: Moist Neck: Supple Chest: Symmetrical Cardiovascular: Rhythm Regular Respiratory: No Rales, No Rhonchi, No Wheezing, Other (NARD) Gastrointestinal/Abdominal: Soft, No Tenderness, Distention (minimal distention), No Guarding, No Rebound, Other (no tenting) Neurological/Psych: Oriented x3, Normal Speech ED Course And Treatment - Laboratory Results Result Diagrams: 10/22/18 09:32 10/22/18 09:32 Urine POC: Negative ECG: Interpreted By Me ECG Rhythm: Sinus Rhythm ECG Interpretation: Normal Rate From EC O2 Sat by Pulse Oximetry: 100 (RA) Pulse Ox Interpretation: Normal - CT Scan/US CT Other Rad Studies (CT/US): Read By Radiologist, Radiology Report Reviewed CT/US Interpretation: Date of service: 10/22/2018. CTA abdomen and pelvis. Indication: ABD PAIN HO PE RO MESENTERIC ISCHEMIA. Comparison: CT abdomen and pelvis without IV contrast performed 05/27/17, abdominal ultrasound performed 06/12/18. Technique: Contrast dose: 100 mL Visipaque 320 IV. Total exam DLP: 859.42 mGy cm. Axial computed tomographic angiogram images of the abdomen and pelvis were performed after bolus administration of nonionic intravenous contrast. Multiplanar, 3D (maximum intensity projection) reconstructions of the aorta were created in the coronal and sagittal planes by the eeg technologist. This CT exam was performed using 1 or more of the falling dose reduction techniques: Automated exposure control, adjustment of the MAA and/or kV according to patient size, and/or use of iterative reconstruction technique. Findings: Limited views of the inferior thorax demonstrates mild basilar atelectasis without visible pleural effusion or pneumothorax. There is normal course and contour of the abdominal aorta and common iliac arteries. The celiac artery origin is widely patent. The superior mesenteric artery origin is widely patent. The inferior mesenteric artery origin is patent. Single renal arteries identified bilaterally, both widely patent. Hepatomegaly. Hypoattenuation of the liver compatible with hepatic steatosis. Focal lobulated hypodense region within the right hepatic lobe (for example series 3, image 51) measuring approximately 3.0 x 1.8 cm, possibly more focal fatty infiltration. The pancreas, spleen, adrenal glands, and gallbladder appear unremarkable. The kidneys enhance symmetrically without evidence of hydronephrosis or obstructing renal calculi. No enlarged abdominal lymphadenopathy is identified. Visualized bowel loops appear within normal limits of caliber without evidence of obstruction. Mucosal thickening of the right colon without associated inflammatory changes may be exaggerated by under distension. Correlate clinically for history of colitis. The appendix appears normal. No inflammatory changes are seen in the right lower quadrant to suggest acute appendicitis. No definite free air. The uterus is present. Mildly thick-walled urinary bladder likely exaggerated by under distension. No significant pelvic free fluid is identified. No acute osseous abnormality is identified. Impression: Mild basilar atelectasis. There is normal course and contour of the abdominal aorta and common iliac arteries. The celiac artery origin is widely patent. The ivy perior mesenteric artery origin is widely patent. The inferior mesenteric artery origin is patent. Single renal arteries identified bilaterally, both widely patent. Hepatomegaly. Diffuse hepatic steatosis.. Focal lobulated hypodense region within the right hepatic lobe measuring approximately 3.0 x 1.8 cm, possibly more focal fatty infiltration. Mucosal thickening of the right colon without associated inflammatory changes may be exaggerated by under distension. Correlate clinically for history of colitis. Mildly thick-walled urinary bladder likely exaggerated by under distension. Progress - Re-Evaluation Re-evaluation Note: 10/22/18 12:[address] REPORT REVIEWED. APPEARS ANXIOUS. WILL DOSE ADDL PAIN RX, R EASSESS 10/22/18 14:54 recur abd pain. SP MORPHINE X 2, ATIVAN. VSS. D/W JOURDAN ELAMIR WILL ADMIT - Data Reviewed Data Reviewed: Lab, Diagnostic imaging, EKG, Old records Medical Decision Making Medical Decision Making: Plan: --Labs --UA --IV Fluids --Zofran IV --Morphine IV ABD PAIN HO COAGULOPATHY. NO PRIOR ABD SURG. CT A/P RO MESENTERIC ISCHEMIA, EKG, LABS Disposition Counseled Patient/Family Regarding: Studies Performed, Diagnosis, Need For Followup - Disposition Disposition: HOSPITALIZED Disposition Time: 14:54 Condition: STABLE - POA Present On Arrival: None - Clinical Impression Clinical Impression: Intractable abdominal pain - Scribe Statement The provider has reviewed the documentation as recorded by the Russell Domingo Provider Attestation: All medical record entries made by the Scribe were at my direction and personally dictated by me. I have reviewed the chart and agree that the record accurately reflects my personal performance of the history, physical exam, medical decision making, and the department course for this patient. I have also personally directed, reviewed, and agree with the discharge instructions and disposition.
[2018-10-22 09:47] LABS: SQUAMOUS EPITHIAL < 1 /hpf (0-5); URINE BILIRUBIN NEGATIVE (NEGATIVE); URINE BLOOD 1+ (NEGATIVE); URINE CLARITY Clear (Clear); URINE COLOR Yellow (YELLOW); URINE GLUCOSE (UA) NORMAL (Normal); URINE LEUKOCYTE ESTERASE NEG Leu/uL (Negative); URINE PROTEIN NEGATIVE (NEGATIVE); URINE UROBILINOGEN NORMAL mg/dL (0.2-1.0)
[2018-10-22 09:48] LABS: BASO % 0.7 % (0.0-2.0); EOS # 0.1 K/uL (0.0-0.7); EOS % 1.7 % (0.0-4.0); LYMPH # 1.8 K/uL (1.0-4.3); LYMPH % 48.7 % (20.0-40.0); MEAN CELL VOLUME 92.1 fL (81.0-99.0); MEAN CORPUSCULAR HEMOGLOBIN 32.7 pg (27.0-31.0); MEAN CORPUSCULAR HGB CONC 35.5 g/dL (33.0-37.0); MONO # 0.2 K/uL (0.0-0.8); MONO % 6.6 % (0.0-10.0); NEUT # 1.5 K/uL (1.8-7.0); NEUT % 42.3 % (50.0-75.0); NRBC % 0.1 % (0.0-2.0); RBC 3.98 Mil/uL (3.80-5.20); RED CELL DISTRIBUTION WIDTH 12.6 % (11.5-14.5); WHITE BLOOD COUNT 3.6 K/uL (4.8-10.8)
[2018-10-22] MEDS ORDERED: Sodium Chloride 0.9% 1,000 ML ONE (09:48)
[2018-10-22 09:57] LABS: ALB/GLOB RATIO 1.9 (1.0-2.1); ALBUMIN 4.6 g/dL (3.5-5.0); ALT/SGPT 38 U/L (9-52); AST/SGOT 51 U/L (14-36); BLOOD UREA NITROGEN 11 mg/dL (7-17); CALCIUM 9.1 mg/dl (8.6-10.4); GFR NON-AFRICAN AMERICAN > 60; INR 1.3; LIPASE 54 U/L (23-300); PARTIAL THROMBOPLASTIN TIME 27.9 SECONDS (21-34); PROTHROMBIN TIME 13.9 SECONDS (9.7-12.2)
[2018-10-22 10:24] LABS: VENOUS BLOOD GAS BASE EXCESS -1.7 mmol/L (0.0-2.0); VENOUS BLOOD GAS PCO2 34 mmHg (40-60); VENOUS BLOOD GAS PO2 35 mm/Hg (30-55); VENOUS BLOOD PH 7.42 (7.32-7.43)
[2018-10-22] MEDS ORDERED: Iodixanol 320 MG/ML 100 ML BOTTLE IV ONE (11:33)
--- NOTE | 2018-10-22 12:11 | CT ---
Date of service: 10/22/2018 CTA abdomen and pelvis Indication: ABD PAIN HO PE RO MESENTERIC ISCHEMIA Comparison: CT abdomen and pelvis without IV contrast performed 05/27/17, abdominal ultrasound performed 06/12/18 Technique: Contrast dose: 100 mL Visipaque 320 IV Total exam DLP: 859.42 mGy cm Axial computed tomographic angiogram images of the abdomen and pelvis were performed after bolus administration of nonionic intravenous contrast. Multiplanar, 3D (maximum intensity projection) reconstructions of the aorta were created in the coronal and sagittal planes by the certified hyperbaric technologist. This CT exam was performed using 1 or more of the falling dose reduction techniques: Automated exposure control, adjustment of the MAA and/or kV according to patient size, and/or use of iterative reconstruction technique. Findings: Limited views of the inferior thorax demonstrates mild basilar atelectasis without visible pleural effusion or pneumothorax. There is normal course and contour of the abdominal aorta and common iliac arteries. The celiac artery origin is widely patent. The superior mesenteric artery origin is widely patent. The inferior mesenteric artery origin is patent. Single renal arteries identified bilaterally, both widely patent. Hepatomegaly. Hypoattenuation of the liver compatible with hepatic steatosis. Focal lobulated hypodense region within the right hepatic lobe (for example series 3, image 51) measuring approximately 3.0 x 1.8 cm, possibly more focal fatty infiltration. The pancreas, spleen, adrenal glands, and gallbladder appear unremarkable. The kidneys enhance symmetrically without evidence of hydronephrosis or obstructing renal calculi. No enlarged abdominal lymphadenopathy is identified. Visualized bowel loops appear within normal limits of caliber without evidence of obstruction. Mucosal thickening of the right colon without associated inflammatory changes may be exaggerated by under distension. Correlate clinically for history of colitis. The appendix appears normal. No inflammatory changes are seen in the right lower quadrant to suggest acute appendicitis. No definite free air. The uterus is present. Mildly thick-walled urinary bladder likely exaggerated by under distension. No significant pelvic free fluid is identified. No acute osseous abnormality is identified. Impression: Mild basilar atelectasis. There is normal course and contour of the abdominal aorta and common iliac arteries. The celiac artery origin is widely patent. The superior mesenteric artery origin is widely patent. The inferior mesenteric artery origin is patent. Single renal arteries identified bilaterally, both widely patent. Hepatomegaly. Diffuse hepatic steatosis.. Focal lobulated hypodense region within the right hepatic lobe measuring approximately 3.0 x 1.8 cm, possibly more focal fatty infiltration. Mucosal thickening of the right colon without associated inflammatory changes may be exaggerated by under distension. Correlate clinically for history of colitis. Mildly thick-walled urinary bladder likely exaggerated by under distension.
[2018-10-22] MEDS ORDERED: Alum-Mag Hydrox-Simethicone Susp (30 mL) PO STA (14:53)
[2018-10-22] MEDS ORDERED: Alum-Mag Hydrox-Simethicone Susp (30 mL) ONE (15:24)
[2018-10-22] MEDS ORDERED: Potassium Chloride 20 mEq ER Tab PO ONE (15:52)
--- NOTE | 2018-10-22 16:05 | CP.PCM.PN ---
Subjective - Date & Time of Evaluation Date of Evaluation: 10/22/18 Time of Evaluation: 15:37 - Subjective Subjective: Progress note for Dr. Frederick Patient is a 32 year old female with past medical history of PE, hypertension, hyperlipidemia, gastritis, who presents with abdominal pain, nausea/vomiting, and loose stool since yesterday. She had 3 episodes of vomiting in the ER, 6 episodes of loose stool yesterday (per patient, "drops of stool, not a lot"). She describes the pain as sharp intermittent pain that last for a few minutes at a time. Her last full meal was the night before which consisted of a spicy chili cheese hot dog, which she thinks may have caused some of this pain. Her LMP is today and normal. Patient denies chest pain, palpitations, dyspnea, cough, fevers, chills, dysuria, hematuria, blood in stool, leg pain, dizziness, headac hes. PMD: Dr. Frederick PMHx: HTN, HLD, gastritis, hx of PE SurgHx: denies FamHx: Mother- HTN, grandmother- [place] SocHx: denies tobacco and drug use; admits to formerly drinking socially, last drink was in 03/2018. Allergies: NKDA Medications: Lisinopril-HCTZ 10-12.5mg PO daily, protonix 40mg po daily, fish oil bid Objective - Vital Signs/Intake and Output Vital Signs (last 24 hours): Temp Pulse Resp BP Pulse Ox 98.2 F 99 H 22 138/97 H 100 10/22/18 12:10 10/22/18 14:07 10/22/18 14:07 10/22/18 14:07 10/22/18 14:55 - Labs Labs: 10/22/18 09:32 10/22/18 09:32 PT 13.9 SECONDS (9.7-12.2) H 10/22/18 09:32 INR 1.3 10/22/18 09:32 APTT 27.9 SECONDS (21-34) 10/22/18 09:32 - Constitutional Appears: No Acute Distress - Head Exam Head Exam: ATRAUMATIC, NORMAL INSPECTION - Eye Exam Eye Exam: EOMI - ENT Exam ENT Exam: Mucous Membranes Moist - Respiratory Exam Respiratory Exam: Clear to Ausculation Bilateral, NORMAL BREATHING PATTERN. absent: Rales, Rhonchi, Wheezes, Respiratory Distress - Cardiovascular Exam Cardiovascular Exam: REGULAR RHYTHM, +S1, +S2 - GI/Abdominal Exam GI & Abdominal Exam: Soft, Tenderness (diffuse, in all quadrants), Normal Bowel Sounds. absent: Distended, Firm, Guarding - Extremities Exam Extremities Exam: absent: Pedal Edema, Tenderness - Neurological Exam Neurological Exam: Alert, Awake, Oriented x3 - Psychiatric Exam Psychiatric exam: Normal Affect, Normal Mood - Skin Skin Exam: Dry, Intact, Normal Color, Warm Assessment and Plan - Assessment and Plan (Free Text) Plan: Patient is a 32 year old female with past medical history of PE, hypertension, hyperlipidemia who presented with abdominal pain, nausea/vomiting, and loose stools. Abdominal Pain - afebrile, no leukocystosis - Elevated lactic acid, will f/u repeat lactic acid - UDS, serum Alc: f/u - Lipase: wnl - NPO - Medications: - Zofran 4mg IV Q6 prn for nausea/vomiting - Toradol prn for pain - Flagyl 500mg IV Q8 prophylactically - NS@100mls - Continue home med: Protonix - Imaging: * CT abdomen/pelvis: There is normal course and contour of the abdominal aorta and common iliac arteries. The celiac artery origin is widely patent. The superior mesenteric artery origin is widely patent. The inferior mesenteric artery origin is patent. Single renal arteries identified bilaterally, both widely patent. Hepatomegaly. Diffuse hepatic steatosis. Focal lobulated hypodense region within the right hepatic lobe measuring approximately 3.0 x 1.8 cm, possibly more focal fatty infiltration. Mucosal thickening of the right colon without associated inflammatory changes may be exaggerated by under distension. Correlate clinically for history of colitis. Mildly thick- walled urinary bladder likely exaggerated by under distension. Hypertension - Continue home meds: Lisinopril 10-12.5mg po daily - Will continue monitor Hypokalemia - K+3.5, repleted - Will monitor daily CMPs Elevated liver enzymes - Fatty liver on CT scan - Hepatitis panel in 06/2018 negative History of PE - Patient has been off anticoagulation for ~2yrs - Saturation on room air within normal limits Prophylaxis - SCDs - GI: continue home med protonix 40mg po daily Case discussed with Dr. Yoly Chua, PGY2
[2018-10-22] MEDS: Sodium Chloride 0.9% 1,000 ML IV SCH (17:00)
[2018-10-22] MEDS: metroNIDAZOLE IV 500 mg/100 ml 500 MG/100 ML BAG IVPB SCH (17:21)
[2018-10-23] MEDS: metroNIDAZOLE IV 500 mg/100 ml 500 MG/100 ML BAG IVPB SCH ×3 (00:14→17:31)
[2018-10-23] MEDS: Sodium Chloride 0.9% 1,000 ML IV SCH ×4 (01:45→21:15)
[2018-10-23 07:06] LABS: BARBITURATES, UR NEGATIVE (NEGATIVE); BENZODIAZEPINES, UR NEGATIVE (NEGATIVE); PHENCYCLIDINE, UR NEGATIVE (NEGATIVE)
--- NOTE | 2018-10-23 07:25 | CP.PCM.PN ---
Subjective - Date & Time of Evaluation Date of Evaluation: 10/23/18 Time of Evaluation: :19 - Subjective Subjective: Progress note for Dr. Frederick Patient was seen and examined at bedside. Patient reports having a headache and feeling hungry, states she is not sure if she has a headache because she has not eaten in a few days. The patient denies nausea, vomiting, and diarrhea, but admits to alot of belching and gas. She has no had a BM since being in the hospital and denies flatus. She denies chest pain, palpitations, dyspnea, n/v/d, dysuria, leg pain. No acute events overnight. Objective - Vital Signs/Intake and Output Vital Signs (last 24 hours): Temp Pulse Resp BP Pulse Ox 98 F 76 20 133/92 H 100 10/22/18 23:46 10/22/18 23:46 10/22/18 23:46 10/22/18 23:46 10/22/18 23:46 Intake and Output: 10/23/18 10/23/18 06:59 18:59 Intake Total 800 Balance 800 - Medications Medications: Current Medications Heparin Sodium (Porcine) (Heparin) 5,000 units SC Q8 [facility] Last Admin: 10/23/18 05:31 Dose: 5,000 units Hydrochlorothiazide (Microzide) 12.5 mg PO DAILY [facility] Sodium Chloride (Sodium Chloride 0.9%) 1,000 mls @ 100 mls/hr IV .Q10H [facility] Last Admin: 10/23/18 06:15 Dose: 100 mls/hr Metronidazole (Flagyl) 500 mg in 100 mls @ 100 mls/hr IVPB Q8H [facility]; Protocol Last Admin: 10/23/18 00:14 Dose: 100 mls/hr Ketorolac Tromethamine (Toradol) 15 mg IVP Q6 PRN PRN Reason: Pain, moderate (4-7) Last Admin: 10/23/18 05:30 Dose: 15 mg Lisinopril (Zestril) 10 mg PO DAILY [facility] Ondansetron HCl (Zofran Inj) 4 mg IVP Q6H PRN PRN Reason: Nausea/Vomiting Pantoprazole Sodium (Protonix Ec Tab) 40 mg PO DAILY [facility] - Labs Labs: 10/22/18 09:32 10/22/18 09:32 PT 13.9 SECONDS (9.7-12.2) H 10/22/18 09:32 INR 1.3 10/22/18 09:32 APTT 27.9 SECONDS (21-34) 10/22/18 09:32 - Additional Findings Additional findings: - Constitutional Appears: No Acute Distress - Head Exam Head Exam: ATRAUMATIC, NORMAL INSPECTION - Eye Exam Eye Exam: EOMI - ENT Exam ENT Exam: Mucous Membranes Moist - Respiratory Exam Respiratory Exam: Clear to Ausculation Bilateral, NORMAL BREATHING PATTERN. absent: Rales, Rhonchi, Wheezes, Respiratory Distress - Cardiovascular Exam Cardiovascular Exam: REGULAR RHYTHM, +S1, +S2 - GI/Abdominal Exam GI & Abdominal Exam: Soft, Tenderness (diffuse, in all quadrants), Normal Bowel Sounds. absent: Distended, Firm, Guarding - Extremities Exam Extremities Exam: absent: Pedal Edema, Tenderness - Neurological Exam Neurological Exam: Alert, Awake, Oriented x3 - Psychiatric Exam Psychiatric exam: Normal Affect, Normal Mood - Skin Skin Exam: Dry, Intact, Normal Color, Warm Assessment and Plan - Assessment and Plan (Free Text) Plan: Patient is a 32 year old female with past medical history of PE, hypertension, hyperlipidemia who presented with abdominal pain, nausea/vomiting, and loose stools. Abdominal Pain - Gi consulted, Dr. Coy; help appreciated * Plan for EGD tomorrow; NPO @[place] - afebrile, no leukocystosis - Elevated lactic acid, will f/u repeat lactic acid - UDS: +opiates-- test was taken after pt received morphine in the ED. - serum Alc: <10 - Lipase: wnl - CLD - Medications: - Zofran 4mg IV Q6 prn for nausea/vomiting - Toradol prn for pain - Flagyl 500mg IV Q8 prophylactically - NS@100mls - Continue home med: Protonix - Imaging: * CT abdomen/pelvis: There is normal course and contour of the abdominal aorta and common iliac arteries. The celiac artery origin is widely patent. The superior mesenteric artery origin is widely patent. The inferior mesenteric artery origin is patent. Single renal arteries identified bilaterally, both widely patent. Hepatomegaly. Diffuse hepatic steatosis. Focal lobulated hypodense region within the right hepatic lobe measuring approximately 3.0 x 1.8 cm, possibly more focal fatty infiltration. Mucosal thickening of the right colon without associated inflammatory changes may be exaggerated by un onur distension. Correlate clinically for history of colitis. Mildly thick- walled urinary bladder likely exaggerated by under distension. Hypertension - Continue home meds: Lisinopril 10-12.5mg po daily - Will continue monitor Hypokalemia - Repleted - Will monitor daily CMPs Elevated liver enzymes - Fatty liver on CT scan - Hepatitis panel in 06/2018 negative History of PE - Patient has been off anticoagulation for ~2yrs - Saturation on room air within normal limits Prophylaxis - SCDs - GI: continue home med protonix 40mg po daily Dispo: EGD planned for tomorrow- NPO after [place]. Case discussed with Dr. Yoly Chua, PGY2
[2018-10-23 07:51] LABS: BASO % 0.2 % (0.0-2.0); EOS # 0.2 K/uL (0.0-0.7); EOS % 4.1 % (0.0-4.0); HEMOGLOBIN 11.4 g/dL (11.0-16.0); LYMPH % 35.4 % (20.0-40.0); MEAN CORPUSCULAR HEMOGLOBIN 32.6 pg (27.0-31.0); MEAN CORPUSCULAR HGB CONC 34.3 g/dL (33.0-37.0); MEAN PLATELET VOLUME 8.2 fL (7.2-11.7); MONO # 0.3 K/uL (0.0-0.8); MONO % 4.9 % (0.0-10.0); NEUT # 3.2 K/uL (1.8-7.0); NEUT % 55.4 % (50.0-75.0); RBC 3.5 Mil/uL (3.80-5.20); RED CELL DISTRIBUTION WIDTH 12.7 % (11.5-14.5)
[2018-10-23 07:53] LABS: WHITE BLOOD COUNT 5.7 K/uL (4.8-10.8)
[2018-10-23 08:13] LABS: ALB/GLOB RATIO 1.4 (1.0-2.1); ALBUMIN 3.2 g/dL (3.5-5.0); ALT/SGPT 32 U/L (9-52); AST/SGOT 35 U/L (14-36); BLOOD UREA NITROGEN 6 mg/dL (7-17); CALCIUM 7.7 mg/dl (8.6-10.4); GFR NON-AFRICAN AMERICAN > 60
[2018-10-23 08:13] LABS: OPIATES, UR POSITIVE (NEGATIVE)
[2018-10-23] MEDS: Pantoprazole 20 mg EC Tab PO SCH (09:23)
[2018-10-23] MEDS ORDERED: Potassium Chloride 20 mEq ER Tab PO ONE (09:28)
--- NOTE | 2018-10-23 12:06 | CP.PCM.CON ---
History of Present Illness - History of Present Illness History of Present Illness: GI Fellow PGY5 Consult Note This is a 32 year old female with past medical history of PE, hypertension, hyperlipidemia, gastritis, who presents with abdominal pain, nausea/vomiting since Saturday. She had vomiting in the ER, drops of loose stool. Reports alot of gas but no real BM since Saturday, she is usually regular BM daily. She describes the pain as sharp intermittent pain that last for a few minutes at a time. Her last full meal was Saturday which consisted of a spicy chili cheese burger, which worsened her abdominal pain. Patient denies chest pain, palpitations, dyspnea, cough, fevers, chills, dysuria, hematuria, blood in stool, leg pain, dizziness, headaches. No prior EGD or Colonoscopy. ROS: A 12pt ROS was negative except as above PMHx:As stated in HPI SurgHx: denies FamHx: Mother- HTN, grandmother- [place] SocHx: denies tobacco and drug use; admits to formerly drinking socially, last drink was in 03/2018. Past Patient History - Infectious Disease Hx of Infectious Diseases: None - Past Medical History & Family History Past Medical History?: Yes - Past Social History Smoking Status: Never Smoked - CARDIAC Hx Hypercholesterolemia: Yes Hx Hypertension: Yes - PULMONARY Hx Pulmonary Embolism: Yes - NEUROLOGICAL Hx Seizures: No - HEENT Hx HEENT Problems: No - RENAL Hx Chronic Kidney Disease: No - ENDOCRINE/METABOLIC Hx Endocrine Disorders: No - HEMATOLOGICAL/ONCOLOGICAL Hx Human Immunodeficiency Virus (HIV): No - INTEGUMENTARY Hx Dermatological Problems: No - MUSCULOSKELETAL/RHEUMATOLOGICAL Hx Falls: No - GASTROINTESTINAL Hx Gastritis: Yes Hx Pancreatitis: Yes - GENITOURINARY/GYNECOLOGICAL Hx Sexually Transmitted Disorders: No - PSYCHIATRIC Hx Substance Use: No - SURGICAL HISTORY Hx Surgeries: No - ANESTHESIA Hx Anesthesia: No Meds Allergies/Adverse Reactions: Allergies Allergy/AdvReac Type Severity Reaction Status Date / Time No Known Allergies Allergy Verified 10/22/18 08:33 - Medications Medications: Current Medications Heparin Sodium (Porcine) (Heparin) 5,000 units SC Q8 [facility] Last Admin: 10/23/18 05:31 Dose: 5,000 units Hydrochlorothiazide (Microzide) 12.5 mg PO DAILY [facility] Last Admin: 10/23/18 09:22 Dose: 12.5 mg Sodium Chloride (Sodium Chloride 0.9%) 1,000 mls @ 100 mls/hr IV .Q10H [facility] Last Admin: 10/23/18 06:15 Dose: 100 mls/hr Metronidazole (Flagyl) 500 mg in 100 mls @ 100 mls/hr IVPB [facility]; Protocol Last Admin: 10/23/18 08:24 Dose: 100 mls/hr Ketorolac Tromethamine (Toradol) 15 mg IVP Q6 PRN PRN Reason: Pain, moderate (4-7) Last Admin: 10/23/18 05:30 Dose: 15 mg Lisinopril (Zestril) 10 mg PO DAILY [facility] Last Admin: 10/23/18 09:22 Dose: 10 mg Ondansetron HCl (Zofran Inj) 4 mg IVP Q6H PRN PRN Reason: Nausea/Vomiting Pantoprazole Sodium (Protonix Ec Tab) 40 mg PO DAILY [facility] Last Admin: 10/23/18 09:23 Dose: 40 mg Physical Exam - Constitutional Appears: Non-toxic, No Acute Distress - Head Exam Head Exam: ATRAUMATIC, NORMAL INSPECTION, NORMOCEPHALIC - Eye Exam Eye Exam: EOMI, Normal appearance, PERRL - ENT Exam ENT Exam: Mucous Membranes Moist, Normal Exam - Neck Exam Neck exam: Positive for: Full Rom, Normal Inspection - Respiratory Exam Respiratory Exam: Clear to Auscultation Bilateral, NORMAL BREATHING PATTERN - Cardiovascular Exam Cardiovascular Exam: REGULAR RHYTHM, RRR, +S1, +S2 - GI/Abdominal Exam GI & Abdominal Exam: Normal Bowel Sounds, Soft, Tenderness. absent: Organomeg edgar - Rectal Exam Rectal Exam: Deferred - Extremities Exam Extremities exam: Positive for: full ROM, normal inspection - Neurological Exam Neurological exam: Alert, Oriented x3 - Psychiatric Exam Psychiatric exam: Normal Affect, Normal Mood - Skin Skin Exam: Dry, Intact, Normal Color, Warm Results - Vital Signs Recent Vital Signs: Last Vital Signs Temp 98.1 F 10/23/18 08:12 Pulse 80 10/23/18 08:12 Resp 20 10/23/18 08:12 BP 124/86 10/23/18 08:12 Pulse Ox 97 10/23/18 08:12 - Labs Result Diagrams: 10/23/18 07:10 10/23/18 07:10 Labs: Laboratory Results - last 24 hr 10/22/18 10/22/18 10/22/18 06:36 12:57 16:23 WBC RBC Hgb Hct MCV MCH MCHC RDW Plt Count MPV Neut % (Auto) Lymph % (Auto) Wilcox % (Auto) Eos % (Auto) Baso % (Auto) Neut # (Auto) Lymph # (Auto) Wilcox # (Auto) Eos # (Auto) Baso # (Auto) Sodium Potassium Chloride Carbon Dioxide Anion Gap BUN Creatinine Est GFR ( Amer) Est GFR (Non-Af Amer) Random Glucose Lactic Acid 3.0 H Calcium Total Bilirubin AST ALT Alkaline Phosphatase Total Protein Albumin Globulin Albumin/Globulin Ratio Urine Opiates Screen Positive H Urine Methadone Screen Negative Ur Barbiturates Screen Negative Ur Phencyclidine Scrn Negative Ur Amphetamines Screen Negative U Benzodiazepines Scrn Negative U Oth Cocaine Metabols Negative U Cannabinoids Screen Negative Alcohol, Quantitative < 10 10/22/18 10/23/18 10/23/18 16:23 07:10 07:10 WBC 5.7 D RBC 3.50 L Hgb 11.4 Hct 33.3 L MCV 93.0 MCH 32.6 H MCHC 34.3 RDW 12.7 Plt Count 246 MPV 8.2 Neut % (Auto) 55.4 Lymph % (Auto) 35.4 Wilcox % (Auto) 4.9 Eos % (Auto) 4.1 H Baso % (Auto) 0.2 Neut # (Auto) 3.2 Lymph # (Auto) 2.0 Wilcox # (Auto) 0.3 Eos # (Auto) 0.2 Baso # (Auto) 0.0 Sodium 139 Potassium 3.4 L Chloride 109 H Carbon Dioxide 23 Anion Gap 11 BUN 6 L Creatinine 0.7 Est GFR ( Amer) > 60 Est GFR (Non-Af Amer) > 60 Random Glucose 104 Lactic Acid 2.9 H Calcium 7.7 L Total Bilirubin 0.7 AST 35 ALT 32 Alkaline Phosphatase 36 L Total Protein 5.5 L Albumin 3.2 L D Globulin 2.3 Albumin/Globulin Ratio 1.4 Urine Opiates Screen Urine Methadone Screen Ur Barbiturates Screen Ur Phencyclidine Scrn Ur Amphetamines Screen U Benzodiazepines Scrn U Oth Cocaine Metabols U Cannabinoids Screen Alcohol, Quantitative Assessment & Plan - Assessment and Plan (Free Text) Assessment: 1. Abdominal Pain 2. GERD 3. Constipation 4. Hx of PE Plan: Pt with acute onset of abdominal pain and vomiting, likely gastroenteritis, pt ate cheeseburger from a restaurant CT imaging reviewed no acute GI pathology Abx per primary team PPI Clear liquid diet Miralax for constipation Plan for EGD tomorrow with chronic GERD and bloating NPO past midnight
[2018-10-23] MEDS: POLYETHYLENE GLYCOL 3350 17 GM/Dose PACKET PO SCH (12:40)
[2018-10-23] MEDS ORDERED: Peg-Electrolyte Oral Soln 4L (Golytely) PO ONE (14:30)
[2018-10-23] MEDS ORDERED: Bisacodyl 5mg EC Tab PO ONE (17:00)
[2018-10-24] MEDS: metroNIDAZOLE IV 500 mg/100 ml 500 MG/100 ML BAG IVPB SCH ×2 (01:13→09:48)
--- NOTE | 2018-10-24 06:16 | HP ---
HISTORY OF PRESENT ILLNESS: The patient a 32 year-old female, chief complaint abdominal pain, nausea, vomiting, gas. Came to the ER, advised admission. The patient has stomach problems for the last two years. The patient's history of DVT. Patient takes protonix. PHYSICAL EXAMINATION: GENERAL: The patient is awake, alert, oriented. VITAL SIGNS: Temperature is 98, . NECK: Supple. CHEST: Symmetrical. HEART: Regular. ABDOMEN: Distended. EXTREMITIES: edema. IMPRESSION: . Flagyl. Patient bed rest, supportive care, protonix , GI consult. Dianelys Frederick MD
--- NOTE | 2018-10-24 07:44 | CP.PCM.PN ---
Subjective - Date & Time of Evaluation Date of Evaluation: 10/24/18 Time of Evaluation: 07:46 - Subjective Subjective: Medicine Note for Dr. Frederick's Service Patient was seen and examined at bedside. Patient reports she no longer has abdominal pain. ROS unremarkable otherwise. Objective - Vital Signs/Intake and Output Vital Signs (last 24 hours): Temp Pulse Resp BP Pulse Ox 98 F 71 20 121/83 96 10/23/18 23:56 10/23/18 23:56 10/23/18 23:56 10/23/18 23:56 10/24/18 04:40 Intake and Output: 10/24/18 10/24/18 06:59 18:59 Intake Total 1900 Output Total 3 Balance 1897 - Medications Medications: Current Medications Heparin Sodium (Porcine) (Heparin) 5,000 units SC Q8 [facility] Last Admin: 10/24/18 05:58 Dose: Not Given Hydrochlorothiazide (Microzide) 12.5 mg PO DAILY [facility] Last Admin: 10/23/18 09:22 Dose: 12.5 mg Sodium Chloride (Sodium Chloride 0.9%) 1,000 mls @ 100 mls/hr IV .Q10H [facility] Last Admin: 10/23/18 21:15 Dose: 100 mls/hr Metronidazole (Flagyl) 500 mg in 100 mls @ 100 mls/hr IVPB Q8H [facility]; Protocol Last Admin: 10/24/18 01:13 Dose: 100 mls/hr Ketorolac Tromethamine (Toradol) 15 mg IVP Q6 PRN PRN Reason: Pain, moderate (4-7) Last Admin: 10/24/18 07:35 Dose: 15 mg Lisinopril (Zestril) 10 mg PO DAILY [facility] Last Admin: 10/23/18 09:22 Dose: 10 mg Metoclopramide HCl (Reglan) 5 mg IVP Q6H [facility] Last Admin: 10/24/18 01:14 Dose: 5 mg Ondansetron HCl (Zofran Inj) 4 mg IVP Q6H PRN PRN Reason: Nausea/Vomiting Last Admin: 10/23/18 21:44 Dose: 4 mg Pantoprazole Sodium (Protonix Ec Tab) 40 mg PO DAILY [facility] Last Admin: 10/23/18 09:23 Dose: 40 mg Polyethylene Glycol (Miralax) 17 gm PO DAILY [facility] Last Admin: 10/23/18 12:40 Dose: 17 gm - Labs Labs: 10/23/18 07:10 10/23/18 07:10 PT 13.9 SECONDS (9.7-12.2) H 10/22/18 09:32 INR 1.3 10/22/18 09:32 APTT 27.9 SECONDS (21-34) 10/22/18 09:32 - Additional Findings Additional findings: - Constitutional Appears: No Acute Distress - Head Exam Head Exam: ATRAUMATIC, NORMAL INSPECTION - Eye Exam Eye Exam: EOMI - ENT Exam ENT Exam: Mucous Membranes Moist - Respiratory Exam Respiratory Exam: Clear to Ausculation Bilateral, NORMAL BREATHING PATTERN. absent: Rales, Rhonchi, Wheezes, Respiratory Distress - Cardiovascular Exam Cardiovascular Exam: REGULAR RHYTHM, +S1, +S2 - GI/Abdominal Exam GI & Abdominal Exam: Soft, Tenderness (diffuse, in all quadrants), Normal Bowel Sounds. absent: Distended, Firm, Guarding - Extremities Exam Extremities Exam: absent: Pedal Edema, Tenderness - Neurological Exam Neurological Exam: Alert, Awake, Oriented x3 - Psychiatric Exam Psychiatric exam: Normal Affect, Normal Mood - Skin Skin Exam: Dry, Intact, Normal Color, Warm Assessment and Plan - Assessment and Plan (Free Text) Plan: Abdominal Pain - Acute -- GI consulted, Dr. Coy; help appreciated - Imaging/ Labs * CT abdomen/pelvis: There is normal course and contour of the abdominal aorta and common iliac arteries. The celiac artery origin is widely patent. The superior mesenteric artery origin is widely patent. The inferior mesenteric artery origin is patent. Single renal arteries identified bilaterally, both widely patent. Hepatomegaly. Diffuse hepatic steatosis. Focal lobulated hypodense region within the right hepatic lobe measuring approximately 3.0 x 1.8 cm, possibly more focal fatty infiltration. Mucosal thickening of the right colon without associated inflammatory changes may be exaggerated by under distension. Correlate clinically for history of colitis. Mildly thick- walled urinary bladder likely exaggerated by under distension. * Lactate continue to remain elevated 3.0 --> 3.0 --> 2.9 * Lipase WNL, Alcohol <10 * UDS: +opiates-- test was taken after pt received morphine in the ED - Management - Zofran 4mg IV Q6 prn for nausea/vomiting - Toradol prn for pain - Flagyl 500mg IV Q8 prophylactically - NS@100mls - Continue home med: Protonix - Colonoscopy - spastic colon Hypertension - Chronic - Continue home meds: Lisinopril 10-12.5mg po daily - Will continue monitor Elevated liver enzymes - Acute, RESOLVED - Fatty liver on CT scan - Hepatitis panel in 06/2018 negative History of PE - Patient has been off anticoagulation for ~2yrs - Saturation on room air within normal limits GERD - Chronic - Continue with Protonix 40mg PO daily Prophylaxis - GI: Continue Protonix 40mg PO daily - DVT: SCDs Disposition: As per Dr. Frederick, patient is medically stable for discharge. She is to continue her home medication of Lisinopril/ HCTZ 10-12.5mg by mouth daily. Protonix 40mg by mouth daily and Carafate 1 gram four times a day - both medica tions were called into [facility]. Patient is to follow up with Dr. Coy within [address] Frederick in 1-2 weeks. Patient instructed to refrain from aspirin and NSAIDs as she has gastritis. DW Dr. Frederick, Wanda Miguel DO, PGY2
[2018-10-24] MEDS: POLYETHYLENE GLYCOL 3350 17 GM/Dose PACKET PO SCH (09:27)
[2018-10-24] MEDS: Pantoprazole 20 mg EC Tab PO SCH (09:33)
[2018-10-24] MEDS: Sodium Chloride 0.9% 1,000 ML IV SCH (09:42)
[2018-10-24] MEDS ORDERED: Propofol 10 mg/ml Inj (20 ML) ONE ×2 (10:01→10:37)
[2018-10-24] MEDS ORDERED: Etomidate 20 mg/10ml Inj IV ONE (10:47)
[2018-10-24] MEDS ORDERED: Midazolam 2 MG/2 ML VIAL ONE ×2 (10:48→11:05)
[2018-10-24 13:07] VITALS: RESP 20; O2SAT 95
[2018-10-24 14:11] LABS: BASO % 0.5 % (0.0-2.0); EOS # 0.2 K/uL (0.0-0.7); EOS % 3.7 % (0.0-4.0); HEMOGLOBIN 11.1 g/dL (11.0-16.0); LYMPH # 2.1 K/uL (1.0-4.3); LYMPH % 45.1 % (20.0-40.0); MEAN CELL VOLUME 92.2 fL (81.0-99.0); MEAN CORPUSCULAR HEMOGLOBIN 32.8 pg (27.0-31.0); MEAN CORPUSCULAR HGB CONC 35.6 g/dL (33.0-37.0); MEAN PLATELET VOLUME 8.1 fL (7.2-11.7); MONO # 0.3 K/uL (0.0-0.8); MONO % 6.5 % (0.0-10.0); NEUT % 44.2 % (50.0-75.0); NRBC % 0.3 % (0.0-2.0); RBC 3.39 Mil/uL (3.80-5.20); RED CELL DISTRIBUTION WIDTH 12.4 % (11.5-14.5); WHITE BLOOD COUNT 4.6 K/uL (4.8-10.8)
[2018-10-24 14:29] LABS: ALB/GLOB RATIO 1.7 (1.0-2.1); ALBUMIN 3.7 g/dL (3.5-5.0); ALT/SGPT 29 U/L (9-52); AST/SGOT 41 U/L (14-36); BLOOD UREA NITROGEN 3 mg/dL (7-17); CALCIUM 8.1 mg/dl (8.6-10.4); GFR NON-AFRICAN AMERICAN > 60
[2018-10-24] MEDS ORDERED: Pneumococcal 23-Valent Vaccine IM ONE (15:33)
[2018-10-24 15:50] VITALS: BP 117/84; PULSE 57; TEMP 98.2
--- NOTE | 2018-10-26 09:54 | CARD ---
APPROVED REPORT Date of service: 10/22/2018 EKG Measurement Heart [id number] <Conclusion> Normal sinus rhythm Normal ECG
== END 2018-10-24 18:32 | disposition home or self-care (01) ==
LOC: C.ER 08:26 → C.9E 14:56 → C.3T 15:44
PROVIDERS: ADMIT Internal Medicine Pulmonary Disease; ATTEND Internal Medicine Pulmonary Disease
DX: K21.9 Gastro-esophageal reflux disease without esophagitis (principal); K59.00 Constipation, unspecified; K29.70 Gastritis, unspecified, without bleeding; K31.89 Other diseases of stomach and duodenum; K64.8 Other hemorrhoids; K64.4 Residual hemorrhoidal skin tags; I10 Essential (primary) hypertension; E78.5 Hyperlipidemia, unspecified; Z86.718 Personal history of other venous thrombosis and embolism; Z86.711 Personal history of pulmonary embolism; Z79.899 Other long term (current) drug therapy
CPT/HCPCS: 36415; 43239; 45380; 74175; 80053; 81001; 81025; 82803; 83605; 83690; 83735; 84100; 84703; 85025; 85610; 85730; 87040; 88305; 88342; 93005; 96361; 96372; 96374; 96375; 96376; 99285; G0378; G0480; J0500; J1644; J1885; J2060; J2270; J2405; J2765; J7030; Q9967